=== PATIENT | female | born 1940 | race Caucasian/White ===

== ENCOUNTER 2019-11-05 14:22 | Emergency (ER) | payer MEDICARE, SELFPAY ==
[2019-11-05 14:34] VITALS: BP 143/67; PULSE 76; RESP 18; TEMP 36.4; O2SAT 100
--- NOTE | 2019-11-05 14:35 | ED.NAVMDI ---
HPI - Nausea/Vomiting/Diarrhea General Chief complaint: Nausea/Vomiting/Diarrhea Stated complaint: diarrhea/bleeding Time Seen by Provider: 11/05/19 14:35 Source: patient Mode of arrival: ambulatory Limitations: no limitations History of Present Illness HPI Narrative: The pt is an 79 y/o female who presents to the ED with c/o diarrhea that began this morning. The pt has been to the ED with similar sx before and has an appointment to see a floor space allocator this upcoming week. She has had about 8-10 episodes of diarrhea today. She reports rectal bleeding and diffuse ABD pain, but denies nausea, vomiting, fever, chills, or CP. MD elicited complaint: diarrhea Onset (ago): hour(s) (this morning) Associated abdominal pain: Yes Location of pain: diffuse Associated symptoms: other (diffuse ABD pain, rectal bleeding) Related Data Home Medications Medication Instructions Recorded Confirmed B Complex Plus Vitamin C 150 mg PO DAILY 09/01/19 09/06/19 Eliquis 2.5 mg PO BID 09/01/19 09/06/19 Entresto 1 tablet PO Q12H 09/01/19 09/06/19 albuterol sulfate 2 puff INHALATION Q4-6H PRN 09/01/19 09/06/19 alprazolam 0.5 mg PO TID PRN 09/01/19 09/06/19 ascorbic acid (vitamin C) [Vitamin 500 mg PO DAILY 09/01/19 09/06/19 C With Debora Hips] aspirin [Children's Aspirin] 81 mg PO DAILY 09/01/19 09/06/19 atorvastatin 40 mg PO DAILY 09/01/19 09/06/19 cholecalciferol (vitamin D3) 5,000 unit PO DAILY 09/01/19 09/06/19 clopidogrel 75 mg PO DAILY 09/01/19 09/06/19 furosemide 40 mg PO DAILY 09/01/19 09/06/19 hydralazine 10 mg PO TID 09/01/19 09/06/19 levothyroxine 125 mcg PO DAILY 09/01/19 09/06/19 metoprolol succinate 50 mg PO DAILY 09/01/19 09/06/19 nitroglycerin 0.4 mg SUBLINGUAL Q5M PRN 09/01/19 09/06/19 pantoprazole 40 mg PO BID 09/01/19 09/06/19 ranitidine HCl 150 mg PO BID 09/01/19 09/06/19 trazodone 100 mg PO HS 09/01/19 09/06/19 valacyclovir 1,000 mg PO DAILY 09/01/19 09/06/19 Systane Ultra 1 drp RIGHTEYE BID 09/06/19 09/06/19 ferrous sulfate 325 mg PO DAILY 09/06/19 09/06/19 melatonin 5 mg PO HS PRN 09/06/19 09/06/19 prednisolone acetate 1 % LEFTEYE DAILY 09/06/19 09/06/19 topiramate [Topamax] 100 mg PO HS 09/06/19 09/06/19 Allergies Allergy/AdvReac Type Severity Reaction Status Date / Time Penicillins Allergy Unknown Rash Verified 11/02/19 10:10 Review of Systems Review of Systems: All systems reviewed & are unremarkable except as noted in HPI and below Constitutional: Constitutional: Denies chills and Denies fever(s) Cardiovascular: Cardiovascular: Denies chest pain Gastrointestinal: Gastrointestinal: Reports abdominal pain (diffuse), Reports diarrhea, Denies nausea, Denies vomiting and Reports other (rectal bleeding) [facility] Past Medical History Medical History (Updated 11/05/19 @ 17:58 by Linda Aviles MD) Anemia Angina at rest Chronic anemia Chronic kidney disease, stage 3 Colitis Congestive heart failure Systolic and diastolic congestive heart failure with last echocardiogram in October 2018. COPD (chronic obstructive pulmonary disease) Coronary artery disease With multivessel surgical revascularization with PCI at [place] October 2017. Depression with anxiety Detached retina Right-sided, x2. Fibroids Frequent headaches GERD (gastroesophageal reflux disease) With history of esophageal stricture requiring dilatation. History of GI bleed History of rectal polyps HTN (hypertension) Hyperlipidemia Hypothyroidism IBS (irritable bowel syndrome) Mitral valve prolapse Myasthenia gravis Questionable history of. Myocardial infarct Obstructive sleep apnea Ocular herpes zoster History of shingles to the left eye, on chronic antiviral therapy. Paroxysmal atrial fibrillation Peripheral neuropathy Pneumonia Rectal polyp Restless leg syndrome Shingles Solitary rectal ulcer syndrome Ulcer Surgical History Surgical History (Updated 11/05/19 @ 15:04 by Rosalia Brasher) H/O mastectomy Status post appendectomy Status pos
[2019-11-05 16:23] LABS: Basophils Percent Auto 0.2 % (0.2-1.2); Eosinophils Absolute Auto 0.1 K/mm3 (0-0.3); Eosinophils Percent Auto 1.2 % (0-4.4); Hematocrit 27.8 % (37.0-47.0); Hemoglobin 8.9 g/dL (12.0-15.0); Immature Granulocyte Absolute 0.01 K/mm3 (0.00-0.031); Immature Granulocyte Percent A 0.2 % (0-0.5); Lymphocytes Absolute Auto 0.82 K/mm3 (0.9-3.2); Lymphocytes Percent Auto 19.6 % (18.3-44.2); Mean Platelet Volume 9.5 fl (7.4-10.4); Monocytes Absolute Auto 0.4 K/mm3 (0.1-0.6); Monocytes Percent Auto 9.3 % (2.6-8.5); Neutrophils Absolute Auto 2.9 K/mm3 (1.3-6.7); Neutrophils Percent Auto 69.5 % (45.5-73.1); Platelet Count Result 200 k/mm3 (150-375); Red Cell Distribution Width 12.6 % (11.5-14.5); White Blood Count 4.2 K/mm3 (4.5-10.0)
[2019-11-05 16:25] VITALS: BP 142/78; PULSE 64; RESP 12; O2SAT 97
[2019-11-05] MEDS: SODIUM CHLORIDE 0.9% IV 1,000 ML 999 ML IV CONT (16:26)
[2019-11-05] MEDS: KETOROLAC 30 MG/ML VIAL (*BKC) IV PUSH (16:26)
[2019-11-05] MEDS: METOCLOPRAMIDE HCL INJ 10 MG/2 ML VIAL IV PUSH (16:28)
[2019-11-05 16:39] LABS: Alanine Aminotransferase 14 U/L (4-35); Albumin Level 3.6 g/dL (3.5-5.1); Alkaline Phosphatase 62 U/L (38-126); Aspartate Amino Transferase 27 U/L (14-36); Bilirubin,Total 0.2 mg/dL (0.2-1.3); Blood Urea Nitrogen 17 mg/dL (7-17); Calcium 8.4 mg/dL (8.4-10.2); Carbon Dioxide 29 mmol/L (22-30); Chloride 101 mmol/L (98-107); Estimated CRCL calculation 17 ml/min; Estimated Glomerular Filt Rate 29; Glucose 115 mg/dL (65-105); Potassium 3.9 mmol/L (3.4-5.0); Sodium 138 mmol/L (137-145)
[2019-11-05] MEDS: LORAZEPAM INJ 2 MG/ML VIAL 1 MG IV PUSH (18:00)
[2019-11-05 18:03] VITALS: BP 167/85; PULSE 72; RESP 18; O2SAT 98
[2019-11-05 18:14] VITALS: BP 161/78; PULSE 71; RESP 16; TEMP 36.9; O2SAT 97
== END 2019-11-05 18:37 | disposition home or self-care (01) ==
PROVIDERS: Emergency Provider Emergency Medicine; PCP Family Medicine
DX: R10.13 Epigastric pain (principal); R19.7 Diarrhea, unspecified; I13.0 Hypertensive heart and chronic kidney disease with heart failure and stage 1 through stage 4 chronic kidney disease, or unspecified chronic kidney disease; I50.40 Unspecified combined systolic (congestive) and diastolic (congestive) heart failure; I25.10 Atherosclerotic heart disease of native coronary artery without angina pectoris; K21.9 Gastro-esophageal reflux disease without esophagitis; E78.5 Hyperlipidemia, unspecified; E03.9 Hypothyroidism, unspecified; K58.9 Irritable bowel syndrome, unspecified; I34.1 Nonrheumatic mitral (valve) prolapse; I48.0 Paroxysmal atrial fibrillation; Z79.01 Long term (current) use of anticoagulants; G62.9 Polyneuropathy, unspecified; G25.81 Restless legs syndrome; Z96.643 Presence of artificial hip joint, bilateral; Z96.653 Presence of artificial knee joint, bilateral; D64.9 Anemia, unspecified; Z79.82 Long term (current) use of aspirin; F41.8 Other specified anxiety disorders; I25.2 Old myocardial infarction; Z98.42 Cataract extraction status, left eye; Z98.41 Cataract extraction status, right eye
CPT/HCPCS: 36415; 80053; 85025; 96361; 96374; 96375; 99284; J1200; J1885; J2060; J2765; J7030

== ENCOUNTER 2019-11-07 15:23 | Emergency (ER) | payer MEDICARE, SELFPAY ==
--- NOTE | ~2019-11-07 | XR_ITS ---
EXAMINATION: XR chest 2V DATE: 11/07/2019 16:46 INDICATION: Burning pain from stomach to mid chest. TECHNIQUE: Frontal and lateral views of the chest were obtained. COMPARISON: Chest 2 views 11/03/2019, chest CT 10/14/2018 FINDINGS: There is mild elevation of left hemidiaphragm. The chest demonstrates clear lungs without p neumonia, pleural effusion, or pneumothorax. The heart size is normal. Calcified mediastinal lymph no sharda are consistent with old granulomatous disease. IMPRESSION: 1. No acute cardiopulmonary disease. Reviewed, dictated and finalized at location A. [place] STORE ASSOCIATE
--- NOTE | 2019-11-07 15:33 | ECG_ITS ---
Measurements Intervals [place] Rate: 78 P: 83 VT: 153 QRS: -25 QRSD: 92 T: 48 QT: 362 QTc: 415 Interpretive Statements SINUS RHYTHM VENTRICULAR PREMATURE COMPLEX POSSIBLE LEFT ATRIAL ENLARGEMENT POSSIBLE LEFT VENTRICULAR HYPERTROPHY BASELINE ARTIFACT- I, III, AVL, V3-V4 BORDERLINE ECG Electronically Signed On 11-07-2019 17:15:23 TANK WAGON DRIVER by Marlon Joe D.O.
[2019-11-07 15:34] VITALS: BP 154/86; PULSE 78; RESP 16; TEMP 36.6; O2SAT 99
[2019-11-07 15:44] LABS: Basophils Percent Auto 0.5 % (0.2-1.2); Eosinophils Percent Auto 0.7 % (0-4.4); Hematocrit 28.8 % (37.0-47.0); Hemoglobin 9.3 g/dL (12.0-15.0); Immature Granulocyte Absolute 0.02 K/mm3 (0.00-0.031); Immature Granulocyte Percent A 0.5 % (0-0.5); Lymphocytes Absolute Auto 0.76 K/mm3 (0.9-3.2); Lymphocytes Percent Auto 17.7 % (18.3-44.2); Mean Corpuscular HGB Conc 32.3 g/dl (32-36); Mean Corpuscular Hemoglobin 33.1 pg (26-34); Mean Corpuscular Volume 102.5 fl (80-100); Mean Platelet Volume 9.7 fl (7.4-10.4); Monocytes Absolute Auto 0.4 K/mm3 (0.1-0.6); Monocytes Percent Auto 9.1 % (2.6-8.5); Neutrophils Absolute Auto 3.1 K/mm3 (1.3-6.7); Neutrophils Percent Auto 71.5 % (45.5-73.1); Platelet Count Result 234 k/mm3 (150-375); Red Blood Count 2.81 M/mm3 (4.2-5.4); Red Cell Distribution Width 12.5 % (11.5-14.5); White Blood Count 4.3 K/mm3 (4.5-10.0)
[2019-11-07 15:54] LABS: INR 1.1; Prothrombin Time 14.1 Seconds (11.1-14.7)
[2019-11-07 15:55] LABS: Partial Thromboplastin Time 28.2 SECONDS (22.3-36.8)
[2019-11-07 15:56] LABS: Blood Urea Nitrogen 13 mg/dL (7-17); Calcium 8.7 mg/dL (8.4-10.2); Carbon Dioxide 29 mmol/L (22-30); Chloride 96 mmol/L (98-107); Estimated CRCL calculation 20 ml/min; Estimated Glomerular Filt Rate 33; Glucose 130 mg/dL (65-105); Potassium 3.4 mmol/L (3.4-5.0); Sodium 135 mmol/L (137-145)
[2019-11-07 16:07] LABS: Troponin I < 0.012 ng/mL (0.000-0.034)
[2019-11-07 16:36] VITALS: PULSE 70
[2019-11-07 16:38] VITALS: BP 150/92; PULSE 71; RESP 14; O2SAT 96
--- NOTE | 2019-11-07 16:54 | ED.ABDPAIN ---
HPI - Abdominal Pain General Chief Complaint: Chest Pain Stated Complaint: DIARRHEA, ABD PAIN Time Seen by Provider: 11/07/19 16:39 Source: patient and RN notes reviewed Mode of arrival: ambulatory Limitations: no limitations History of Present Illness HPI narrative: Pt is a 79 y/o female with a Hx of IBS, who presents to the ED with c/o chronic epigastric pain and diarrhea. According to old records, the pt was evaluated here for the same symptoms 4 days ago and again 2 days ago. She describes her pain as burning, and notes that her pain radiates into her chest and back. Pt states that she has been taking Imodium for her diarrhea, but denies having any relief of her symptoms. She currently denies any fever, chills, or other symptoms. Pt states that she is scheduled for a follow-up appointment with her nurse outreach case manager, Dr. Coates. MD elicited complaint: abdominal pain Pertinent past history: other (IBS) Location: epigastric Radiation: back and chest Associated symptoms: diarrhea Treatments prior to arrival: other (Imodium) Related Data Home Medications Medication Instructions Recorded Confirmed B Complex Plus Vitamin C 150 mg PO DAILY 09/01/19 09/06/19 Eliquis 2.5 mg PO BID 09/01/19 09/06/19 Entresto 1 tablet PO Q12H 09/01/19 09/06/19 albuterol sulfate 2 puff INHALATION Q4-6H PRN 09/01/19 09/06/19 alprazolam 0.5 mg PO TID PRN 09/01/19 09/06/19 ascorbic acid (vitamin C) [Vitamin 500 mg PO DAILY 09/01/19 09/06/19 C With Debora Hips] aspirin [Children's Aspirin] 81 mg PO DAILY 09/01/19 09/06/19 atorvastatin 40 mg PO DAILY 09/01/19 09/06/19 cholecalciferol (vitamin D3) 5,000 unit PO DAILY 09/01/19 09/06/19 clopidogrel 75 mg PO DAILY 09/01/19 09/06/19 furosemide 40 mg PO DAILY 09/01/19 09/06/19 hydralazine 10 mg PO TID 09/01/19 09/06/19 levothyroxine 125 mcg PO DAILY 09/01/19 09/06/19 metoprolol succinate 50 mg PO DAILY 09/01/19 09/06/19 nitroglycerin 0.4 mg SUBLINGUAL Q5M PRN 09/01/19 09/06/19 pantoprazole 40 mg PO BID 09/01/19 09/06/19 ranitidine HCl 150 mg PO BID 09/01/19 09/06/19 trazodone 100 mg PO HS 09/01/19 09/06/19 valacyclovir 1,000 mg PO DAILY 09/01/19 09/06/19 Systane Ultra 1 drp RIGHTEYE BID 09/06/19 09/06/19 ferrous sulfate 325 mg PO DAILY 09/06/19 09/06/19 melatonin 5 mg PO HS PRN 09/06/19 09/06/19 prednisolone acetate 1 % LEFTEYE DAILY 09/06/19 09/06/19 topiramate [Topamax] 100 mg PO HS 09/06/19 09/06/19 Allergies Allergy/AdvReac Type Severity Reaction Status Date / Time Penicillins Allergy Unknown Rash Verified 11/02/19 10:10 Review of Systems Review of Systems: All systems reviewed & are unremarkable except as noted in HPI and below Constitutional: Constitutional: Denies chills and Denies fever(s) Gastrointestinal: Gastrointestinal: Reports abdominal pain (epigastric pain radiating into chest and back) and Reports diarrhea PMFSH Past Medical History Medical History (Updated 11/07/19 @ 17:45 by Sharron Gunderson MD) Anemia Angina at rest Chronic anemia Chronic kidney disease, stage 3 Colitis Congestive heart failure Systolic and diastolic congestive heart failure with last echocardiogram in October 2018. COPD (chronic obstructive pulmonary disease) Coronary artery disease With multivessel surgical revascularization with PCI at [place] October 2017. Depression with anxiety Detached retina Right-sided, x2. Fibroids Frequent headaches GERD (gastroesophageal reflux disease) With history of esophageal stricture requiring dilatation. History of GI bleed History of rectal polyps HTN (hypertension) Hyperlipidemia Hypothyroidism IBS (irritable bowel syndrome) Mitral valve prolapse Myasthenia gravis Questionable history of. Myocardial infarct Obstructive sleep apnea Ocular herpes zoster History of shingles to the left eye, on chronic antiviral therapy. Paroxysmal atrial fibrillation Peripheral neuropathy Pneumonia Rectal polyp Restless leg syndrome Shingles Solitary rectal ulcer syndrom
[2019-11-07] MEDS: BELLADONNA ALK/PHENOB ELIX 10 ML, MAG HYDROX/ALUMINUM HYD/SIMETH 30 ML, LIDOCAINE HCL 2... PO (17:10)
[2019-11-07 17:57] VITALS: BP 138/88; PULSE 67; RESP 15; O2SAT 98
== END 2019-11-07 17:58 | disposition home or self-care (01) ==
PROVIDERS: Emergency Medicine; Emergency Provider General Practice; PCP Family Medicine
DX: R07.89 Other chest pain (principal); R10.13 Epigastric pain; G89.29 Other chronic pain; I13.0 Hypertensive heart and chronic kidney disease with heart failure and stage 1 through stage 4 chronic kidney disease, or unspecified chronic kidney disease; I50.40 Unspecified combined systolic (congestive) and diastolic (congestive) heart failure; I25.10 Atherosclerotic heart disease of native coronary artery without angina pectoris; K21.9 Gastro-esophageal reflux disease without esophagitis; E78.5 Hyperlipidemia, unspecified; E03.9 Hypothyroidism, unspecified; K58.9 Irritable bowel syndrome, unspecified; I34.1 Nonrheumatic mitral (valve) prolapse; I48.0 Paroxysmal atrial fibrillation; Z79.01 Long term (current) use of anticoagulants; G62.9 Polyneuropathy, unspecified; G25.81 Restless legs syndrome; Z96.643 Presence of artificial hip joint, bilateral; Z96.653 Presence of artificial knee joint, bilateral; D64.9 Anemia, unspecified; Z79.82 Long term (current) use of aspirin; F41.8 Other specified anxiety disorders; I25.2 Old myocardial infarction; Z98.42 Cataract extraction status, left eye; Z98.41 Cataract extraction status, right eye
CPT/HCPCS: 36415; 71046; 80048; 84484; 85025; 85610; 85730; 93005; 99284; A9270

== ENCOUNTER 2019-11-15 18:46 | Emergency (ER) | payer MEDICARE, SELFPAY ==
--- NOTE | ~2019-11-15 | XR_ITS ---
EXAMINATION: XR chest 2V DATE: 11/15/2019 19:27 INDICATION: Chest pain extending inferiorly to the stomach. TECHNIQUE: frontal and lateral views of the chest were obtained. COMPARISON: Chest radiograph dated 11/07/2019 FINDINGS: Upper expansion of lungs. Chronic mild elevation of the left hemidiaphragm. No focal airspace opaciti es, pulmonary edema, pleural effusion or pneumothorax. Cardiomegaly with prior coronary artery stenti ng. Calcified right hilar and mediastinal lymph nodes consistent with old granulomatous disease. Larg e loose osteochondral body at the axillary recess of the right glenohumeral joint. Mild thoracic dext roscoliosis with severe spondylosis. IMPRESSION: 1. Cardiomegaly. Reviewed, dictated and finalized at location A. TING FILM STRIPPER IMPRESSION: 1. Cardiomegaly.
--- NOTE | 2019-11-15 18:47 | ECG_ITS ---
Measurements Intervals [place] Rate: 65 P: 83 NC: 136 QRS: -34 QRSD: 94 T: 0 QT: 459 QTc: 481 Interpretive Statements SINUS RHYTHM ATRIAL PREMATURE COMPLEX LEFT AXIS DEVIATION ANTEROSEPTAL INFARCT, AGE INDETERMINATE BORDERLINE ST-T WAVE ABNORMALITY- LATERAL LEADS BASELINE ARTIFACT- I, II, III, AVR, AVL, AVF, V1-V6 ABNORMAL ECG Electronically Signed On 11-16-2019 8:00:17 SMALL CRAFT OPERATOR by Marlon Joe D.O.
[2019-11-15 18:53] VITALS: BP 169/93; PULSE 67; RESP 17; TEMP 36.7; O2SAT 98
[2019-11-15 18:56] VITALS: PULSE 67
--- NOTE | 2019-11-15 19:09 | ED.CHESTPAIN ---
HPI - Chest Pain General Chief Complaint: Chest Pain Stated Complaint: chest pain all the way down to my stomach Time Seen by Provider: 11/15/19 19:07 Source: patient and RN notes reviewed Mode of arrival: ambulatory Limitations: no limitations History of Present Illness HPI narrative: A 79 y/o female presents to the ED with worsening, central, pressure, CP beginning earlier this morning. She reports that the pain radiates into her ABD and that she has ABD bloating. She also notes that she has a rectal ulcer that causes her chronic occasional rectal bleeding. She denies any fevers, chills, sweats, cough, N/V/D, or SOB. MD complaint: chest pain Pertinent past history: coronary artery disease and prior [place] Onset (ago): hour(s) (this morning) Timing of current episode: increasing Pain location: other (central) Pain radiation: abdomen Quality: other (pressure) Associated symptoms: other (ABD bloating and chronic occasional rectal bleeding) Related Data Home Medications Medication Instructions Recorded Confirmed B Complex Plus Vitamin C 150 mg PO DAILY 09/01/19 09/06/19 Eliquis 2.5 mg PO BID 09/01/19 09/06/19 Entresto 1 tablet PO Q12H 09/01/19 09/06/19 albuterol sulfate 2 puff INHALATION Q4-6H PRN 09/01/19 09/06/19 alprazolam 0.5 mg PO TID PRN 09/01/19 09/06/19 ascorbic acid (vitamin C) [Vitamin 500 mg PO DAILY 09/01/19 09/06/19 C With Debora Hips] aspirin [Children's Aspirin] 81 mg PO DAILY 09/01/19 09/06/19 atorvastatin 40 mg PO DAILY 09/01/19 09/06/19 cholecalciferol (vitamin D3) 5,000 unit PO DAILY 09/01/19 09/06/19 clopidogrel 75 mg PO DAILY 09/01/19 09/06/19 furosemide 40 mg PO DAILY 09/01/19 09/06/19 hydralazine 10 mg PO TID 09/01/19 09/06/19 levothyroxine 125 mcg PO DAILY 09/01/19 09/06/19 metoprolol succinate 50 mg PO DAILY 09/01/19 09/06/19 nitroglycerin 0.4 mg SUBLINGUAL Q5M PRN 09/01/19 09/06/19 pantoprazole 40 mg PO BID 09/01/19 09/06/19 ranitidine HCl 150 mg PO BID 09/01/19 09/06/19 trazodone 100 mg PO HS 09/01/19 09/06/19 valacyclovir 1,000 mg PO DAILY 09/01/19 09/06/19 Systane Ultra 1 drp RIGHTEYE BID 09/06/19 09/06/19 ferrous sulfate 325 mg PO DAILY 09/06/19 09/06/19 melatonin 5 mg PO HS PRN 09/06/19 09/06/19 prednisolone acetate 1 % LEFTEYE DAILY 09/06/19 09/06/19 topiramate [Topamax] 100 mg PO HS 09/06/19 09/06/19 Allergies Allergy/AdvReac Type Severity Reaction Status Date / Time Penicillins Allergy Unknown Rash Verified 11/15/19 19:18 Review of Systems Review of Systems: Narrative: CONSTITUTIONAL: Denies fever, chills, or sweats. CARDIOVASCULAR: Reports central CP. RESPIRATORY: Denies cough or dyspnea. GASTROINTESTINAL: Denies nausea, vomiting, or diarrhea. Reports ABD pain radiated from CP, ABD bloating, and chronic occasional rectal bleeding. All systems reviewed & are unremarkable except as noted in HPI and below PMFSH Past Medical History Medical History Anemia Angina at rest Chronic anemia Chronic kidney disease, stage 3 Colitis Congestive heart failure Systolic and diastolic congestive heart failure with last echocardiogram in October 2018. COPD (chronic obstructive pulmonary disease) Coronary artery disease With multivessel surgical revascularization with PCI at [place] October 2017. Depression with anxiety Detached retina Right-sided, x2. Fibroids Frequent headaches GERD (gastroesophageal reflux disease) With history of esophageal stricture requiring dilatation. History of GI bleed History of rectal polyps HTN (hypertension) Hyperlipidemia Hypothyroidism IBS (irritable bowel syndrome) Mitral valve prolapse Myasthenia gravis Questionable history of. Myocardial infarct Obstructive sleep apnea Ocular herpes zoster History of shingles to the left eye, on chronic antiviral therapy. Paroxysmal atrial fibrillation Peripheral neuropathy Pneumonia Rectal polyp Restless leg syndrome Shingles Solitary rectal ulcer syndrome Ulcer Surgical Histo
[2019-11-15 19:43] LABS: Basophils Percent Auto 0.5 % (0.2-1.2); Eosinophils Absolute Auto 0.1 K/mm3 (0-0.3); Eosinophils Percent Auto 1.5 % (0-4.4); Hematocrit 28.6 % (37.0-47.0); Hemoglobin 9.1 g/dL (12.0-15.0); Immature Granulocyte Absolute 0.02 K/mm3 (0.00-0.031); Immature Granulocyte Percent A 0.5 % (0-0.5); Lymphocytes Absolute Auto 1.05 K/mm3 (0.9-3.2); Lymphocytes Percent Auto 26.9 % (18.3-44.2); Mean Corpuscular HGB Conc 31.8 g/dl (32-36); Mean Corpuscular Volume 103.6 fl (80-100); Mean Platelet Volume 9.8 fl (7.4-10.4); Monocytes Absolute Auto 0.3 K/mm3 (0.1-0.6); Monocytes Percent Auto 8.7 % (2.6-8.5); Neutrophils Absolute Auto 2.4 K/mm3 (1.3-6.7); Neutrophils Percent Auto 61.9 % (45.5-73.1); Platelet Count Result 222 k/mm3 (150-375); Red Blood Count 2.76 M/mm3 (4.2-5.4); Red Cell Distribution Width 12.4 % (11.5-14.5); White Blood Count 3.9 K/mm3 (4.5-10.0)
[2019-11-15 19:54] LABS: Alanine Aminotransferase 16 U/L (4-35); Albumin Level 3.8 g/dL (3.5-5.1); Alkaline Phosphatase 64 U/L (38-126); Aspartate Amino Transferase 34 U/L (14-36); Bilirubin,Total 0.3 mg/dL (0.2-1.3); Blood Urea Nitrogen 17 mg/dL (7-17); Calcium 8.7 mg/dL (8.4-10.2); Carbon Dioxide 33 mmol/L (22-30); Chloride 100 mmol/L (98-107); Estimated Glomerular Filt Rate 39; Glucose 87 mg/dL (65-105); Lipase 362 U/L (23-300); Potassium 3.5 mmol/L (3.4-5.0); Sodium 139 mmol/L (137-145)
[2019-11-15 19:55] LABS: INR 1.2; Partial Thromboplastin Time 28.3 SECONDS (22.3-36.8); Prothrombin Time 14.5 Seconds (11.1-14.7)
[2019-11-15 20:06] LABS: Troponin I < 0.012 ng/mL (0.000-0.034)
[2019-11-15] MEDS: SODIUM CHLORIDE 0.9% IV 1,000 ML 999 ML IV CONT (21:06)
[2019-11-15] MEDS: FAMOTIDINE 20 MG/2 ML VIAL IV PUSH (21:07)
[2019-11-15] MEDS: DICYCLOMINE HCL INJ 20 MG/2 ML VIAL IM (21:07)
[2019-11-15 21:13] VITALS: BP 164/87; PULSE 68; RESP 20; O2SAT 96
[2019-11-15 21:42] VITALS: BP 164/87; PULSE 69; RESP 20; O2SAT 99
[2019-11-15 21:56] LABS: Troponin I < 0.012 ng/mL (0.000-0.034)
== END 2019-11-15 21:44 | disposition home or self-care (01) ==
PROVIDERS: Emergency Medicine; Emergency Provider Emergency Medicine; PCP Family Medicine
DX: R07.89 Other chest pain (principal); K29.00 Acute gastritis without bleeding; I13.0 Hypertensive heart and chronic kidney disease with heart failure and stage 1 through stage 4 chronic kidney disease, or unspecified chronic kidney disease; I50.40 Unspecified combined systolic (congestive) and diastolic (congestive) heart failure; N18.3 Chronic kidney disease, stage 3 (moderate); I25.10 Atherosclerotic heart disease of native coronary artery without angina pectoris; E78.5 Hyperlipidemia, unspecified; E03.9 Hypothyroidism, unspecified; K58.9 Irritable bowel syndrome, unspecified; I34.1 Nonrheumatic mitral (valve) prolapse; I48.0 Paroxysmal atrial fibrillation; Z79.01 Long term (current) use of anticoagulants; G62.9 Polyneuropathy, unspecified; G25.81 Restless legs syndrome; Z96.643 Presence of artificial hip joint, bilateral; Z96.653 Presence of artificial knee joint, bilateral; D64.9 Anemia, unspecified; Z79.82 Long term (current) use of aspirin; F41.8 Other specified anxiety disorders; I25.2 Old myocardial infarction; Z98.42 Cataract extraction status, left eye; Z98.41 Cataract extraction status, right eye; J44.9 Chronic obstructive pulmonary disease, unspecified; I49.1 Atrial premature depolarization; R94.31 Abnormal electrocardiogram [ECG] [EKG]
CPT/HCPCS: 36415; 71046; 80053; 83690; 84484; 85025; 85610; 85730; 93005; 96361; 96372; 96374; 96375; 99284; J0500; J1200; J7030

== ENCOUNTER 2019-11-26 20:54 | Emergency (ER) | payer MEDICARE, SELFPAY ==
--- NOTE | ~2019-11-26 | CT_ITS ---
EXAMINATION: CT abdomen pelvis wo con DATE: 11/27/2019 00:01 INDICATION: Epigastric abdominal pain. TECHNIQUE: Computed tomography (CT) of the abdomen and pelvis was performed without intravenous contr ast. Automated exposure control and iterative reconstruction technique were employed. The dose-length product was 238.34 mGy-cm. COMPARISON: CT abdomen and pelvis 10/04/2019 FINDINGS: The visualized portions of the lung bases demonstrate mild atelectasis. A calcified right l misbah nodule is consistent with old granulomatous disease. No pleural effusion. The heart size is toro l. There are coronary artery calcifications. No pericardial effusion. There is mild intrahepatic bili morales duct dilatation and dilatation of the common duct to 16 mm without change, likely not clinically significant given the normal liver function tests. There are changes of cholecystectomy. Calcificatio ns in the spleen are consistent with old granulomatous disease. The pancreas and adrenal glands are n ormal. There are cysts and hemorrhagic cysts in the kidneys measuring up to 1.7 cm on the left. There is mild atrophy of left kidney. There are no dilated loops of bowel. The appendix is not visualized. There are no pathologically enlarged lymph nodes. There is no free intraperitoneal fluid. There are bilateral total hip arthroplasties. There is a 1.5 cm benign bone island in left ilium. There is lumb ar levoscoliosis and severe spondylosis. IMPRESSION: 1. No specific etiology for the patient's symptoms. Reviewed, dictated and finalized at location A. RINTENDENT CONSTRUCTION
[2019-11-26 21:50] VITALS: BP 169/86; PULSE 61; RESP 18; TEMP 36.5; O2SAT 100
--- NOTE | 2019-11-26 23:35 | ED.ABDPAIN ---
HPI - Abdominal Pain General Chief Complaint: Abdominal Pain Stated Complaint: ABD, PELVIS AND CHEST DISCOMFORT Time Seen by Provider: 11/26/19 23:12 Source: patient and RN notes reviewed Mode of arrival: ambulatory Limitations: no limitations History of Present Illness HPI narrative: Pt is a 79 y/o female with a Hx of GERD, who presents to the ED with c/o worsening diffuse ABD pain starting this morning. She notes that she has been evaluated in the [place] ED several times within the past few months for the same symptoms. Pt has had multiple ER visits for the same complaints, abd pain/atypical chest pain. Pt states that her pain radiates from her diffuse ABD into her central chest. She describes her pain as burning, started after eating tonight, and currently rates her pain at 10/10. Pt reports having 3-4 episodes of diarrhea throughout the day today. She also reports SOB, but denies any nausea, vomiting, fever, or rectal bleeding. Pt notes that she is currently being treated with antibiotics for a UTI. MD elicited complaint: abdominal pain Pertinent past history: diverticulitis and other (GERD) Onset (ago): day(s) (1) Pain Consistency: other (worsening) Location: diffuse Pain scale (0-10): 10 Quality: burning Radiation: back and chest Context: confirms recent antibiotic use Associated symptoms: diarrhea and other (SOB) Related Data Home Medications Medication Instructions Recorded Confirmed B Complex Plus Vitamin C 150 mg PO DAILY 09/01/19 09/06/19 Eliquis 2.5 mg PO BID 09/01/19 09/06/19 Entresto 1 tablet PO Q12H 09/01/19 09/06/19 albuterol sulfate 2 puff INHALATION Q4-6H PRN 09/01/19 09/06/19 alprazolam 0.5 mg PO TID PRN 09/01/19 09/06/19 ascorbic acid (vitamin C) [Vitamin 500 mg PO DAILY 09/01/19 09/06/19 C With Debora Hips] aspirin [Children's Aspirin] 81 mg PO DAILY 09/01/19 09/06/19 atorvastatin 40 mg PO DAILY 09/01/19 09/06/19 cholecalciferol (vitamin D3) 5,000 unit PO DAILY 09/01/19 09/06/19 clopidogrel 75 mg PO DAILY 09/01/19 09/06/19 furosemide 40 mg PO DAILY 09/01/19 09/06/19 hydralazine 10 mg PO TID 09/01/19 09/06/19 levothyroxine 125 mcg PO DAILY 09/01/19 09/06/19 metoprolol succinate 50 mg PO DAILY 09/01/19 09/06/19 nitroglycerin 0.4 mg SUBLINGUAL Q5M PRN 09/01/19 09/06/19 pantoprazole 40 mg PO BID 09/01/19 09/06/19 ranitidine HCl 150 mg PO BID 09/01/19 09/06/19 trazodone 100 mg PO HS 09/01/19 09/06/19 valacyclovir 1,000 mg PO DAILY 09/01/19 09/06/19 Systane Ultra 1 drp RIGHTEYE BID 09/06/19 09/06/19 ferrous sulfate 325 mg PO DAILY 09/06/19 09/06/19 melatonin 5 mg PO HS PRN 09/06/19 09/06/19 prednisolone acetate 1 % LEFTEYE DAILY 09/06/19 09/06/19 topiramate [Topamax] 100 mg PO HS 09/06/19 09/06/19 Allergies Allergy/AdvReac Type Severity Reaction Status Date / Time Penicillins Allergy Unknown Rash Verified 11/15/19 19:18 Review of Systems Review of Systems: All systems reviewed & are unremarkable except as noted in HPI and below Constitutional: Constitutional: Denies fever(s) Respiratory: Respiratory: Reports dyspnea Gastrointestinal: Gastrointestinal: Reports abdominal pain (diffuse ABD pain radiating into chest and back), Denies hematochezia, Reports diarrhea, Denies nausea and Denies vomiting PMF Past Medical History Medical History Anemia Angina at rest Chronic anemia Chronic kidney disease, stage 3 Colitis Congestive heart failure Systolic and diastolic congestive heart failure with last echocardiogram in October 2018. COPD (chronic obstructive pulmonary disease) Coronary artery disease With multivessel surgical revascularization with PCI at [place] October 2017. Depression with anxiety Detached retina Right-sided, x2. Fibroids Frequent headaches GERD (gastroesophageal reflux disease) With history of esophageal stricture requiring dilatation. History of GI bleed History of rectal polyps HTN (hypertension) Hyperlipidemia Hypothyroidism IBS
[2019-11-26 23:59] LABS: Basophils Percent Auto 0.9 % (0.2-1.2); Eosinophils Absolute Auto 0.1 K/mm3 (0-0.3); Eosinophils Percent Auto 2.3 % (0-4.4); Hematocrit 32.2 % (37.0-47.0); Hemoglobin 10.1 g/dL (12.0-15.0); Immature Granulocyte Absolute 0.02 K/mm3 (0.00-0.031); Immature Granulocyte Percent A 0.5 % (0-0.5); Lymphocytes Absolute Auto 0.95 K/mm3 (0.9-3.2); Lymphocytes Percent Auto 21.9 % (18.3-44.2); Mean Corpuscular HGB Conc 31.4 g/dl (32-36); Mean Corpuscular Hemoglobin 32.4 pg (26-34); Mean Corpuscular Volume 103.2 fl (80-100); Mean Platelet Volume 9.8 fl (7.4-10.4); Monocytes Absolute Auto 0.4 K/mm3 (0.1-0.6); Monocytes Percent Auto 8.1 % (2.6-8.5); Neutrophils Absolute Auto 2.9 K/mm3 (1.3-6.7); Neutrophils Percent Auto 66.3 % (45.5-73.1); Platelet Count Result 230 k/mm3 (150-375); Red Blood Count 3.12 M/mm3 (4.2-5.4); Red Cell Distribution Width 12.2 % (11.5-14.5); White Blood Count 4.3 K/mm3 (4.5-10.0)
[2019-11-27 00:12] LABS: Lactic Acid Reflex 0.5 mmol/L (0.7-2.1)
[2019-11-27 00:23] LABS: Troponin I < 0.012 ng/mL (0.000-0.034)
[2019-11-27 00:32] LABS: Alanine Aminotransferase 17 U/L (4-35); Albumin Level 4.4 g/dL (3.5-5.1); Alkaline Phosphatase 75 U/L (38-126); Aspartate Amino Transferase 33 U/L (14-36); Bilirubin,Total 0.5 mg/dL (0.2-1.3); Blood Urea Nitrogen 14 mg/dL (7-17); Calcium 9.1 mg/dL (8.4-10.2); Carbon Dioxide 26 mmol/L (22-30); Chloride 102 mmol/L (98-107); Estimated CRCL calculation 20 ml/min; Estimated Glomerular Filt Rate 36; Glucose 92 mg/dL (65-105); Sodium 137 mmol/L (137-145)
[2019-11-27 00:35] LABS: INR 1.1; Prothrombin Time 13.6 Seconds (11.1-14.7)
[2019-11-27 00:36] LABS: Partial Thromboplastin Time 29.7 SECONDS (22.3-36.8)
[2019-11-27 01:06] VITALS: BP 149/92; PULSE 60; RESP 14; O2SAT 97
[2019-11-27] MEDS: SODIUM CHLORIDE 0.9% IV 1,000 ML 999 ML IV CONT (01:07)
[2019-11-27] MEDS: ONDANSETRON INJ 4 MG/2 ML VIAL IV PUSH (01:07)
[2019-11-27] MEDS: BELLADONNA ALK/PHENOB ELIX 10 ML, MAG HYDROX/ALUMINUM HYD/SIMETH 30 ML, LIDOCAINE HCL 2... PO (01:18)
[2019-11-27 02:20] VITALS: BP 145/84; PULSE 59; RESP 18; O2SAT 99
--- NOTE | 2019-11-27 23:12 | ECG_ITS ---
Measurements Intervals [place] Rate: 66 P: 64 [place]: 144 QRS: -34 QRSD: 94 T: 58 QT: 441 QTc: 465 Interpretive Statements SINUS RHYTHM W ATRIAL PREMATURE COMPLEX AND VENTRICULAR BIGEMINY LEFT AXIS DEVIATION ANTEROSEPTAL INFARCT, AGE INDETERMINATE BASELINE ARTIFACT- I, II, AVR, AVL ABNORMAL ECG Electronically Signed On 11-27-2019 6:48:26 MANUFACTURING JOB TITLES by Marlon Joe D.O.
== END 2019-11-27 02:23 | disposition home or self-care (01) ==
PROVIDERS: Emergency Provider Emergency Medicine; PCP Family Medicine
DX: R10.84 Generalized abdominal pain (principal); K56.7 Ileus, unspecified; N39.0 Urinary tract infection, site not specified; K21.9 Gastro-esophageal reflux disease without esophagitis; I13.0 Hypertensive heart and chronic kidney disease with heart failure and stage 1 through stage 4 chronic kidney disease, or unspecified chronic kidney disease; I50.40 Unspecified combined systolic (congestive) and diastolic (congestive) heart failure; N18.3 Chronic kidney disease, stage 3 (moderate); I25.10 Atherosclerotic heart disease of native coronary artery without angina pectoris; I25.2 Old myocardial infarction; E78.5 Hyperlipidemia, unspecified; E03.9 Hypothyroidism, unspecified; K58.9 Irritable bowel syndrome, unspecified; I34.1 Nonrheumatic mitral (valve) prolapse; I48.0 Paroxysmal atrial fibrillation; Z79.01 Long term (current) use of anticoagulants; G62.9 Polyneuropathy, unspecified; G25.81 Restless legs syndrome; F41.8 Other specified anxiety disorders; J44.9 Chronic obstructive pulmonary disease, unspecified; G47.33 Obstructive sleep apnea (adult) (pediatric); R00.8 Other abnormalities of heart beat; Z96.653 Presence of artificial knee joint, bilateral; Z79.82 Long term (current) use of aspirin; Z96.643 Presence of artificial hip joint, bilateral; Z98.41 Cataract extraction status, right eye; Z98.42 Cataract extraction status, left eye; R94.31 Abnormal electrocardiogram [ECG] [EKG]; I49.1 Atrial premature depolarization
CPT/HCPCS: 36415; 74176; 80053; 83605; 84484; 85025; 85610; 85730; 93005; 96361; 96374; 99284; A9270; J2405; J7030

== ENCOUNTER 2019-12-01 08:03 | Observation (INO) | payer MEDICARE, SELFPAY ==
[2019-12-01] VITALS (35 sets, daily range): BP systolic 104–178; BP diastolic 64–150; PULSE 53–100; RESP 10–28; TEMP 36.2–36.7; O2SAT 91–100; BMI 15.8
--- NOTE | ~2019-12-01 | CT_ITS ---
EXAMINATION: CT brain wo con INDICATION: Head injury COMPARISON: 10/08/2018 TECHNIQUE: Standard unenhanced head CT. The dose-length product (DLP) was 605.33 mGy-cm. The mA was a djusted according to patient size. Iterative reconstruction technique was employed. FINDINGS: There is soft tissue swelling of the left frontal and parietal scalp. There is no acute int raparenchymal hemorrhage. No evidence of mass lesion. No evidence of acute infarction. There is mild periventricular and subcortical hypodensity probably related to small vessel ischemic disease. There is mild prominence of the sulci and ventricles related to cerebral atrophy. Intracranial calcified ce rebral atherosclerosis is noted. There are no extra-axial collections. There is no mass effect or mid line shift. Changes in the globes are likely from ocular lens surgery. The visualized sinuses and ma stoid air cells are well aerated. IMPRESSION: 1. Left frontal and parietal scalp soft tissue swelling without acute intracranial abnormality. 2. Age related findings. Reviewed, dictated and finalized at location A. HER COLORER IMPRESSION: 1. Left frontal and parietal scalp soft tissue swelling without acute intracran ial abnormality. 2. Age related findings.
--- NOTE | ~2019-12-01 | MR_ITS ---
EXAMINATION: MR brain/brain stem wo con DATE: 12/02/2019 12:16 INDICATION: Transient confusion. TECHNIQUE: Magnetic resonance imaging (MRI) of the brain and brainstem was performed without intraven ous contrast. Sequences included sagittal and axial T1-weighted FSE, axial diffusion-weighted FS EPI, axial T2*-weighted GRE, axial T2-weighted FLAIR Propeller, and axial T2-weighted Propeller. Apparent diffusion coefficient (ADC) maps were created. COMPARISON: Brain MRI 02/03/2012, head CT 12/01/2019 FINDINGS: There are scattered areas of nonspecific increased T2-weighted signal intensity in the cere bral white matter and katharine. There is no intracranial hemorrhage, acute infarction, or abnormal intrac ranial mass lesion. The ventricles are normal in size. There is mild mucosal thickening in the parana leonor sinuses. The mastoid air cells are normal. There are likely changes of ocular lens replacement xavier rgeries. IMPRESSION: 1. Worsened mild nonspecific cerebral white matter disease and pontine disease, which likely represen ts chronic small vessel ischemic disease. Reviewed, dictated and finalized at location A. NGUAL ACCOUNT MANAGER IMPRESSION: 1. Worsened mild nonspecific cerebral white matter disease and pontine disease, which likely represents chronic small vessel ischemic disease.
--- NOTE | ~2019-12-01 | US_ITS ---
EXAMINATION: US carotid duplex BI DATE: 12/02/2019 12:33 INDICATION: Syncope. TECHNIQUE: Grayscale, color Doppler, and pulsed Doppler images of the cervical carotid arteries were obtained. The degree of vessel stenosis is placed in one of the following categories: normal, <50%, 5 0-69%, >=70% but less than near-occlusion, near-occlusion, or total occlusion. Note that percent sten osis relative to normal distal artery lumen diameter is indirectly measured from velocity measurement s as described by Carlos, et al. Radiology 2003; 229:340-346. COMPARISON: None. FINDINGS: RIGHT: The right common carotid artery (CCA) peak systolic velocity (PSV) is 47 cm/s. The right internal car otid artery (ICA) PSV is 56 cm/s. The right ICA end-diastolic velocity (EDV) is 20 cm/s. The right IC A/CCA PSV ratio is 1.2. Grayscale and color Doppler images yield an estimate of <50% diameter reducti on from plaque in the ICA. There is antegrade flow in the right vertebral artery. LEFT: The left CCA PSV is 57 cm/s. The left ICA PSV is 83 cm/s. The left ICA EDV is 25 cm/s. The left ICA/C CA PSV ratio is 1.5. Grayscale and color Doppler images yield an estimate of <50% diameter reduction from plaque in the ICA. There is antegrade flow in the left vertebral artery. IMPRESSION: 1. <50% stenosis in the right internal carotid artery. 2. <50% stenosis in the left internal carotid artery. Reviewed, dictated and finalized at location A. LLMENT SERVICES DEAN
--- NOTE | ~2019-12-01 | CT_ITS ---
EXAMINATION: CT cervical spine wo con EXAM DATE: 12/01/2019 09:47 INDICATION: Fall. Neck injury. TECHNIQUE: Spiral CT of the cervical spine was performed without contrast. Axial images were reviewe d. Coronal and sagittal reformatted images were also reviewed. The dose-length product (DLP) for thi s examination was 605.33 mGy-cm. The exposure was tailored according to patient size (auto mA exposu re control), and iterative reconstruction (ASIR) was used as additional dose reduction technique. ere is no prior study for comparison. FINDINGS: There is aortic arterial sclerosis. There is no evidence of acute cervical fracture. The o dontoid process is intact. Pre-dens space is normal. Prevertebral soft tissue is normal. There are no soft tissue abnormalities identified. There is no disc space widening or traumatic vertebral bod y subluxation suspected. There is moderate to severe cervical spondylosis, arthropathy. A detailed level by level evaluation of spondylosis can be added as addendum if requested. IMPRESSION: 1. No acute cervical fracture. 2. Moderate to severe cervical spondylosis. Reviewed, dictated and finalized at location B. ECTION MANAGER
--- NOTE | ~2019-12-01 | XR_ITS ---
EXAMINATION: XR ribs LT 2V w CXR 2V INDICATION: Left-sided rib pain after fall TECHNIQUE: AP and lateral views of the chest and 3 views of the left ribs were obtained. COMPARISON: 11/15/2019 FINDINGS: The lungs are hyperinflated but free of acute opacities. There is no pleural effusion or pn eumothorax. Stable cardiomegaly is noted. There are coronary artery stents. There are minimally displ aced acute fractures of the left sixth and seventh ribs. IMPRESSION: 1. Minimally displaced fractures of the left sixth and seventh ribs. Reviewed, dictated and finalized at location A. E RIDING COACH OR INSTRUCTOR
--- NOTE | 2019-12-01 09:01 | ECG_ITS ---
Measurements Intervals [place] Rate: 81 P: 77 NC: 141 QRS: -12 QRSD: 90 T: 31 QT: 370 QTc: 430 Interpretive Statements SINUS RHYTHM ANTEROSEPTAL INFARCT, AGE INDETERMINATE BORDERLINE ST-T WAVE ABNORMALITY- INF/LAT LEADS ABNORMAL ECG Electronically Signed On 12-01-2019 9:46:04 HYDRAULIC MODELING ENGINEER by Marlon Joe D.O.
[2019-12-01 09:25] LABS: Basophils Percent Auto 0.5 % (0.2-1.2); Eosinophils Absolute Auto 0.1 K/mm3 (0-0.3); Eosinophils Percent Auto 1.5 % (0-4.4); Hematocrit 29.6 % (37.0-47.0); Hemoglobin 9.2 g/dL (12.0-15.0); Immature Granulocyte Absolute 0.03 K/mm3 (0.00-0.031); Immature Granulocyte Percent A 0.7 % (0-0.5); Lymphocytes Absolute Auto 0.74 K/mm3 (0.9-3.2); Lymphocytes Percent Auto 18.4 % (18.3-44.2); Mean Corpuscular HGB Conc 31.1 g/dl (32-36); Mean Corpuscular Hemoglobin 32.5 pg (26-34); Mean Corpuscular Volume 104.6 fl (80-100); Mean Platelet Volume 10.2 fl (7.4-10.4); Monocytes Absolute Auto 0.4 K/mm3 (0.1-0.6); Monocytes Percent Auto 9.4 % (2.6-8.5); Neutrophils Absolute Auto 2.8 K/mm3 (1.3-6.7); Neutrophils Percent Auto 69.5 % (45.5-73.1); Platelet Count Result 189 k/mm3 (150-375); Red Blood Count 2.83 M/mm3 (4.2-5.4); Red Cell Distribution Width 12.1 % (11.5-14.5)
[2019-12-01 09:35] LABS: INR 1.1; Prothrombin Time 13.6 Seconds (11.1-14.7)
[2019-12-01 09:41] LABS: Blood Urea Nitrogen 13 mg/dL (7-17); Calcium 8.5 mg/dL (8.4-10.2); Carbon Dioxide 26 mmol/L (22-30); Chloride 99 mmol/L (98-107); Estimated CRCL calculation 22 ml/min; Estimated Glomerular Filt Rate 39; Glucose 107 mg/dL (65-105); Potassium 3.9 mmol/L (3.4-5.0); Sodium 135 mmol/L (137-145)
[2019-12-01 09:44] LABS: Alanine Aminotransferase 17 U/L (4-35); Albumin Level 3.5 g/dL (3.5-5.1); Alkaline Phosphatase 53 U/L (38-126); Aspartate Amino Transferase 33 U/L (14-36); Bilirubin,Total 0.6 mg/dL (0.2-1.3); Lipase 86 U/L (23-300)
[2019-12-01 09:52] LABS: Troponin I < 0.012 ng/mL (0.000-0.034)
[2019-12-01 09:53] LABS: NT Pro B Type Natriuretic Pept 642 PG/ML (5-100)
[2019-12-01] MEDS: SODIUM CHLORIDE 0.9% IV 500 ML 999 ML IV CONT (10:09)
--- NOTE | 2019-12-01 10:17 | ED.CHESTPAIN ---
HPI - Chest Pain General Chief Complaint: Chest Pain Stated Complaint: Chest pain Time Seen by Provider: 12/01/19 09:07 Source: patient Mode of arrival: ambulatory Limitations: no limitations History of Present Illness HPI narrative: Patient is an 79-year-old female who presents to emergency department for evaluation of chest pain noting pain that began today that radiates from the pelvis up into the chest which is consistent with her chronic chest pain followed by cardiology patient on arrival denies any falls but does have contusion to the forehead thoracic paraspinal and left upper extremity. Patient notes moderate aching pain to the left ribs. Patient denies syncope loss of consciousness and on arrival is in the room in no distress. Pain is worse with activity and movement Related Data Home Medications Medication Instructions Recorded Confirmed B Complex Plus Vitamin C 150 mg PO DAILY 09/01/19 09/06/19 Eliquis 2.5 mg PO BID 09/01/19 09/06/19 Entresto 1 tablet PO Q12H 09/01/19 09/06/19 albuterol sulfate 2 puff INHALATION Q4-6H PRN 09/01/19 09/06/19 alprazolam 0.5 mg PO TID PRN 09/01/19 09/06/19 ascorbic acid (vitamin C) [Vitamin 500 mg PO DAILY 09/01/19 09/06/19 C With Debora Hips] aspirin [Children's Aspirin] 81 mg PO DAILY 09/01/19 09/06/19 atorvastatin 40 mg PO DAILY 09/01/19 09/06/19 cholecalciferol (vitamin D3) 5,000 unit PO DAILY 09/01/19 09/06/19 clopidogrel 75 mg PO DAILY 09/01/19 09/06/19 furosemide 40 mg PO DAILY 09/01/19 09/06/19 hydralazine 10 mg PO TID 09/01/19 09/06/19 levothyroxine 125 mcg PO DAILY 09/01/19 09/06/19 metoprolol succinate 50 mg PO DAILY 09/01/19 09/06/19 nitroglycerin 0.4 mg SUBLINGUAL Q5M PRN 09/01/19 09/06/19 pantoprazole 40 mg PO BID 09/01/19 09/06/19 ranitidine HCl 150 mg PO BID 09/01/19 09/06/19 trazodone 100 mg PO HS 09/01/19 09/06/19 valacyclovir 1,000 mg PO DAILY 09/01/19 09/06/19 Systane Ultra 1 drp RIGHTEYE BID 09/06/19 09/06/19 ferrous sulfate 325 mg PO DAILY 09/06/19 09/06/19 melatonin 5 mg PO HS PRN 09/06/19 09/06/19 prednisolone acetate 1 % LEFTEYE DAILY 09/06/19 09/06/19 topiramate [Topamax] 100 mg PO HS 09/06/19 09/06/19 Allergies Allergy/AdvReac Type Severity Reaction Status Date / Time Penicillins Allergy Unknown Rash Verified 11/15/19 19:18 Review of Systems Review of Systems: All systems reviewed & are unremarkable except as noted in HPI and below PMFSH Past Medical History Medical History Anemia Angina at rest Chronic anemia Chronic kidney disease, stage 3 Colitis Congestive heart failure Systolic and diastolic congestive heart failure with last echocardiogram in October 2018. COPD (chronic obstructive pulmonary disease) Coronary artery disease With multivessel surgical revascularization with PCI at [place] October 2017. Depression with anxiety Detached retina Right-sided, x2. Fibroids Frequent headaches GERD (gastroesophageal reflux disease) With history of esophageal stricture requiring dilatation. History of GI bleed History of rectal polyps HTN (hypertension) Hyperlipidemia Hypothyroidism IBS (irritable bowel syndrome) Mitral valve prolapse Myasthenia gravis Questionable history of. Myocardial infarct Obstructive sleep apnea Ocular herpes zoster History of shingles to the left eye, on chronic antiviral therapy. Paroxysmal atrial fibrillation Peripheral neuropathy Pneumonia Rectal polyp Restless leg syndrome Shingles Solitary rectal ulcer syndrome Ulcer UTI (urinary tract infection) Surgical History Surgical History H/O mastectomy History of endoscopic gastrointestinal surgery Hx of colonoscopy Status post appendectomy Status post bilateral hip replacements Status post bilateral knee replacements Status post breast biopsy Bilateral. Status post carpal tunnel release Status post cataract extraction bilateral Status post chol
[2019-12-01 10:28] LABS: Add Urine Microscopic? NO; Appearance Urine Clear (Clear); Bilirubin Urine Negative (Negative); Blood Urine Negative (Negative); Color Urine Yellow (Yellow); Glucose Urine UA Negative (Negative); Ketones Urine Negative (Negative); Leukocyte Esterase Ur Negative LEU/UL (Negative); Nitrate Urine Negative (Negative); Protein Urine Negative (Negative); Specific Grav Ur 1.011 (1.001-1.035); Urobilinogen Urine Negative mg/dL (<2.0)
[2019-12-01 12:52] LABS: Troponin I < 0.012 ng/mL (0.000-0.034)
--- NOTE | 2019-12-01 13:18 | PC.NURSE ---
This patient, Dhara Harry, was admitted to 3 [facility] Surg Room 311-01. Patient/family oriented to hospital policies and general routines including ID bracelet, bed and alarms, visiting hours, pain management, procedures, bathroom and other care routines, personal items, smoking policy, room service/diet, and visiting hours. Valuables list has been completed. Information on how to activate the Rapid Response Team has been discussed. Patient/Family are encouraged to report perceived risks to care and to ask questions if they do not understand what they are told or what they should do.
--- NOTE | 2019-12-01 13:30 | PM.IMHP ---
H&P: HPI History of Present Illness Chief complaint: Chest pain. <Sunshine Bowman PA-C - Last Filed: 12/01/19 15:35> Narrative: Dhara Harry is an 79-year-old female with multiple medical problems including coronary artery disease, chronic kidney disease, congestive heart failure, paroxysmal atrial fibrillation, and several other comorbidities who presented to the emergency department earlier this morning via private vehicle from home for evaluation of chest pain. She has frequent angina and has had numerous emergency department visits for such. This morning after waking up, she once again developed chest pain and took nitroglycerin as she does. It did not seem to help with the chest pain, and thus she came in for evaluation. On arrival to the emergency department, she was noted to have scattered bruising and contusions on her forehead, back, and left flank. Interestingly, she does not recall how these could have happened, does not recall falling, and does not believe she had a syncopal episode: ?I just cannot imagine what could have happened. Her cannot recall any incident either. With further questioning, she does mention the chest pain she had today was different than her typical angina. Instead, is located more so in the left anterior chest and into the left midline axillary region. It seems to be sharp in nature, is worse with the inspiration and movement. She has no complaints at the time my evaluation, but is obviously concerned as to how these bruises came about. No history of stroke or seizure. <Sunshine Bowman PA-C - Last Filed: 12/01/19 15:35> Review of Systems Review of Systems: Narrative: Twelve systems were reviewed with pertinent positives and negatives as per HPI. No fever, chills, or sweats. She denies headache. No sinus congestion, rhinorrhea, otalgia, or odynophagia. Weight has remained stable. Appetite is as per usual, and she had 2 pieces of toast this morning for breakfast. She has had some slight nausea today, but no vomiting. Mentions having a loose stool earlier this morning. She denies feeling lightheaded and dizzy upon standing. Denies vertigo and neuropathy. No auditory visual changes. She denies focal weakness and paresthesias. Except as documented, all other systems were reviewed and are negative. <Sunshine Bowman PA-C - Last Filed: 12/01/19 15:35> [facility] Past Medical History Medical History: Medical History (Updated 12/01/19 @ 15:26 by Sunshine Bowman PA-C) Chronic anemia Chronic kidney disease, stage 3 Congestive heart failure Systolic and diastolic congestive heart failure with last echocardiogram in October 2018. Coronary artery disease With multivessel surgical revascularization with PCI at [place] October 2017. Depression with anxiety Detached retina Right-sided, x2. Frequent headaches GERD (gastroesophageal reflux disease) With history of esophageal stricture requiring dilatation. History of GI bleed History of rectal polyps Hyperlipidemia Hypertension Hypothyroidism IBS (irritable bowel syndrome) Mitral valve prolapse Myasthenia gravis Questionable history of. Obstructive sleep apnea Ocular herpes zoster History of shingles to the left eye, on chronic antiviral therapy. Paroxysmal atrial fibrillation Peripheral neuropathy Rectal polyp Restless leg syndrome Shingles Solitary rectal ulcer syndrome <Sunshine Bowman PA-C - Last Filed: 12/01/19 15:35> Surgical History Surgical History: Surgical History (Updated 12/01/19 @ 15:08 by Sunshine Bowman PA-C) Status post appendectomy Status post bilateral hip replacements Status post bilateral knee replacements Status post breast biopsy Bilateral with benign histology. Status post carpal tunnel release Status post cataract extraction Bilateral. Status post cholecystectomy Status post laminectomy Lumbar spine. Status post LASIK surgery Status post rotator cuff rep
[2019-12-01 15:57] LABS: Troponin I < 0.012 ng/mL (0.000-0.034)
[2019-12-01] MEDS: PANTOPRAZOLE 40 MG TABLET PO (16:52)
[2019-12-01 17:56] LABS: Folic Acid > 20.0 ng/mL (2.76->20)
[2019-12-01 19:14] LABS: Iron 48 ug/dL (37-170)
[2019-12-01 19:23] LABS: Percent Iron Saturation 16 % (20-50)
[2019-12-01 19:46] LABS: Thyroid Stimulating Hormone Reflex 0.258 uIU/mL (0.465-4.68)
[2019-12-01 20:48] LABS: Free T4 Free Thyroxine Reflex 1.76 ng/dL (0.78-2.19)
[2019-12-01] MEDS: ACETAMINOPHEN 500 MG TABLET PO (20:54)
[2019-12-01] MEDS: TRAZODONE HCL 50 MG TABLET 100 MG PO (20:54)
[2019-12-01] MEDS: ALPRAZOLAM 0.5 MG TABLET PO (21:58)
[2019-12-01] MEDS: hydrALAZINE 10 MG TABLET PO (21:58)
[2019-12-01] MEDS: CALCIUM CARBONATE (TUMS) 500 MG (200 MG ELEMENTAL) PO (22:10)
[2019-12-01 22:17] LABS: Total Triiodothyronine (T3) 0.69 NG/ML (0.97-1.69)
[2019-12-02] VITALS (19 sets, daily range): BP systolic 117–170; BP diastolic 59–90; PULSE 61–110; RESP 16–20; TEMP 36.5–37.2; O2SAT 95–99
--- NOTE | 2019-12-02 | ECHO_ITS ---
Patient Info Name: Dhara Harry Age: 79 years : 1940 Gender: Female Ht: 66 in Wt: 100 lbs BSA: 1.44 m2 HR: 67 bpm BP: 153 / 80 mmHg Heart Rhythm: Sinus Rhythm Technical Quality: Excellent Exam Date: 12/02/2019 9:27 AM Exam Location: [facility] Pulmonary Patient Status: Inpatient Admit Date: 12/01/2019 Staff Ordering Physician: Jennifer Storey MD Gyroscopic Instrument Tester: Luke Bear RDCS Attending Provider: Jennifer Storey MD Exam Type: CA echo doppler color flow Study Info Indications R55 - Syncope and collapse R07.9 - Chest pain, unspecified Complete two-dimensional, color flow and Doppler transthoracic echocardiogram is performed. Strain analysis performed. History/Risk Factors Chest pain; syncope, CHF, CAD. Summary 1. Left ventricular chamber dimension is normal. 2. Left ventricular systolic function is normal, estimated at 50-55%. 3. There is mildly increased left ventricular wall thickness. 4. The left ventricular diastolic function is grade I diastolic dysfunction. 5. Left atrial chamber dimension is moderately enlarged. 6. Right atrial chamber dimension is moderately enlarged. 7. There is mild to moderate aortic valve regurgitation. 8. There is mild mitral valve regurgitation. 9. There is mild tricuspid valve regurgitation. 10. Mild pulmonary hypertension, estimated pulmonary arterial systolic pressure is 38 mmHg. 11. There is mild pulmonic regurgitation. 12. There is small pericardial effusion. 13. external compression of the left atrium. Left Ventricle Left ventricular chamber dimension is normal. Left ventricular systolic function is normal, estimated at 50-55%. There is mildly increased left ventricular wall thickness. The left ventricular diastolic function is grade I diastolic dysfunction. Right Ventricle Right ventricular chamber dimension is normal. Right ventricular systolic function is normal. Left Atria Left atrial chamber dimension is moderately enlarged. Right Atria Right atrial chamber dimension is moderately enlarged. Atrial Septum Intact interatrial septum visualized by color flow imaging. Aortic Valve The aortic valve is trileaflet. There is no aortic valve sclerosis. There is no aortic valve stenosis. There is mild to moderate aortic valve regurgitation. Pulmonic Valve The pulmonic valve is normal. There is no pulmonic valve stenosis. There is mild pulmonic regurgitation. Mitral Valve The mitral valve has thickened leaflets. There is no mitral valve stenosis. There is mild mitral valve regurgitation. Tricuspid Valve The tricuspid valve leaflets are normal. There is no significant tricuspid valve stenosis. There is mild tricuspid valve regurgitation. Mild pulmonary hypertension, estimated pulmonary arterial systolic pressure is 38 mmHg. Other Findings external compression of the left atrium. Pericardium/Pleural The pericardium appears normal. There is small pericardial effusion. Inferior Vena Cava Dilated inferior vena cava with >50% collapse upon inspiration consistent with elevated right atrial pressure, 15 mmHg. Aorta The aortic root size at the sinus of Valsalva is normal. Left Ventricular Outflow Tract Name Value Normal LVOT 2D
[2019-12-02] MEDS: ACETAMINOPHEN 500 MG TABLET PO ×3 (01:51→17:17)
[2019-12-02] MEDS: LEVOTHYROXINE SODIUM 125 MCG TABLET PO (05:32)
[2019-12-02] MEDS: hydrALAZINE 10 MG TABLET PO ×3 (05:32→22:19)
[2019-12-02 06:47] LABS: Basophils Percent Auto 0.4 % (0.2-1.2); Eosinophils Absolute Auto 0.1 K/mm3 (0-0.3); Eosinophils Percent Auto 1.7 % (0-4.4); Hematocrit 27.5 % (37.0-47.0); Immature Granulocyte Absolute 0.01 K/mm3 (0.00-0.031); Immature Granulocyte Percent A 0.2 % (0-0.5); Lymphocytes Percent Auto 18.7 % (18.3-44.2); Mean Corpuscular HGB Conc 32.7 g/dl (32-36); Mean Corpuscular Hemoglobin 32.8 pg (26-34); Mean Corpuscular Volume 100.4 fl (80-100); Mean Platelet Volume 10.1 fl (7.4-10.4); Monocytes Absolute Auto 0.5 K/mm3 (0.1-0.6); Monocytes Percent Auto 9.6 % (2.6-8.5); Neutrophils Absolute Auto 3.3 K/mm3 (1.3-6.7); Neutrophils Percent Auto 69.4 % (45.5-73.1); Platelet Count Result 200 k/mm3 (150-375); Red Blood Count 2.74 M/mm3 (4.2-5.4); White Blood Count 4.8 K/mm3 (4.5-10.0)
[2019-12-02 07:00] LABS: Blood Urea Nitrogen 13 mg/dL (7-17); Calcium 8.6 mg/dL (8.4-10.2); Carbon Dioxide 26 mmol/L (22-30); Chloride 100 mmol/L (98-107); Estimated CRCL calculation 28 ml/min; Estimated Glomerular Filt Rate 43; Glucose 80 mg/dL (65-105); Potassium 3.8 mmol/L (3.4-5.0); Sodium 138 mmol/L (137-145)
[2019-12-02] MEDS: ALPRAZOLAM 0.5 MG TABLET PO ×2 (07:27→21:04)
[2019-12-02] MEDS: VALACYCLOVIR HCL 500 MG TABLET 1000 MG PO (09:14)
[2019-12-02] MEDS: SACUBITRIL/VALSARTAN 24-26 MG TABLET 1 TAB PO ×2 (09:14→21:05)
[2019-12-02] MEDS: CHOLECALCIFEROL 1,000 UNIT TABLET 5000 UNITS PO (09:15)
[2019-12-02] MEDS: SPIRONOLACTONE 25 MG TABLET PO (09:16)
[2019-12-02] MEDS: PANTOPRAZOLE 40 MG TABLET PO ×2 (09:16→16:38)
[2019-12-02] MEDS: METOPROLOL SUCCINATE EXT REL 50 MG TABCR PO (09:17)
[2019-12-02] MEDS: ASCORBIC ACID 500 MG TABLET PO (09:17)
[2019-12-02] MEDS: FUROSEMIDE 40 MG TABLET PO (09:18)
[2019-12-02] MEDS: FERROUS SULFATE 324 MG TABLET PO (09:18)
[2019-12-02] MEDS: VITAMIN B COMPLEX/VIT C CAPSULE 1 EACH PO (09:19)
[2019-12-02] MEDS: ONDANSETRON INJ 4 MG/2 ML VIAL IV PUSH (11:22)
--- NOTE | 2019-12-02 13:30 | NEURO_ITS ---
TEST: ELECTROENCEPHALOGRAM DIAGNOSIS: TRANSIENT CONFUSION PATIENT NUMBER: [id number] EEG NUMBER: [id number] RECORDING DATE: 12/02/19 CLINICAL HISTORY: Patient fell at home and has no idea how or when it happened. CONDITION OF RECORDING: Awake, drowsy and sleep EEG DESCRIPTION: Basic resting occipital frequency consists of moderate amount of fairly well organized low voltage 8-10hz alpha mixed with low voltage 15-18hz beta. During drowsiness low voltage beta activity is seen diffusely mixed with waxing and waning posterior alpha rhythms. Bilateral symmetrical sleep activity is seen during sleep. Hyperventilation and photic stimulation were not done. Nonparoxysmal. Nonfocal. Nonlateralizing. IMPRESSION: Normal record. [facility]
--- NOTE | 2019-12-02 14:43 | PM.IMPN ---
Progress Note: A&P Assessment and Plan (1) Transient alteration of awareness: Code(s): R40.4 - Transient alteration of awareness Status: Acute Assessment and Plan: Patient is unaware as to how she obtained the rib fractures and multiple contusions. Would consider syncopal episode, fall causing concussion and amnesia, seizure, versus other. Will monitor on telemetry overnight. Will obtain brain MRI and EEG. 12/02/19 14:43 Patient is 79-year-old female with history of severe systolic dysfunction with ejection fraction 20% hypertension atrial fibrillation for which patient is taking Eliquis patient was brought to the emergency department with a complaint of chest pain she was also found to bruising and tenderness along the left ribs, patient states he may have a fall in 2 days prior to coming to emergency department however see does not remember exactly what happened or there any prior symptoms before falling, she does not remember how she got up after falling and what happened however her symptoms were getting worse and complains of chest pain and bruising therefore patient presented emergency department, her 3 sets of cardiac enzymes are negative CT scan of the head is negative for any acute injury or, bleeding however she does have a soft tissue injury to the forehead, smilarly MRI of brain did no show any acute injury, similarly carotid ultrasound did not show any stenosis and cardiac echo showed improvement in patient ejection fraction from 20% to 50%, however patient with significant fall I am concerned the patient is on Eliquis will consult Cardiology further recommendation to continue Eliquis or to stop. Will have a PT OT evaluate the patient patient will benefit going to acute rehab before going home (2) Closed head injury: Code(s): S09.90XA - Unspecified injury of head, initial encounter Status: Acute Assessment and Plan: She is alert and oriented at the time my evaluation. Will perform neurologic checks q.4 hours. Hold blood thinners for 24 hours. (3) Left rib fracture: Code(s): S22.32XA - Fracture of one rib, left side, initial encounter for closed fracture Status: Acute Assessment and Plan: Minimally displaced fractures of left 6th and 7th ribs. Encourage incentive spirometry. (4) Multiple contusions: Code(s): T07.XXXA - Unspecified multiple injuries, initial encounter Status: Acute Assessment and Plan: Multiple contusions noted on the scalp, back, left arm, and left chest. Neurologic checks given head trauma. PT/OT consulted. Initiate fall precautions. (5) Chest pain: Code(s): R07.9 - Chest pain, unspecified Status: Acute Assessment and Plan: Patient reports frequent angina, and has had numerous ER visits for such. Chest pain today seems somewhat atypical, is likely musculoskeletal in etiology. (6) Orthostatic hypotension: Code(s): I95.1 - Orthostatic hypotension Status: Acute Assessment and Plan: Orthostatic vital signs obtained in the emergency department shortly after arrival as follows: Supine blood pressure 141/67, pulse 55; sitting blood pressure 129/75, pulse 70; standing blood pressure 117/72, pulse 69. It is not documented whether not the patient was symptomatic with this, and she denies such at the time my evaluation. Will continue to monitor orthostatic vital signs Q shift. (7) Chronic kidney disease, stage 3: Code(s): N18.3 - Chronic kidney disease, stage 3 (moderate) Status: Acute Assessment and Plan: Creatinine is stable on review of previous labs. (8) Chronic anemia: Code(s): D64.9 - Anemia, unspecified Status: Acute Assessment and Plan: Hemoglobin and hematocrit are stable on review of previous labs. MCV has steadily increased over the past 6 months, thus will check B12 and folates. Patient B12 and fo
--- NOTE | 2019-12-02 16:18 | PM.CNCAR ---
Assessment and Plan Assessment and plan (1) Current use of skilled nursing anticoagulation: Code(s): Z79.01 - residential (current) use of anticoagulants Status: Acute Assessment and Plan: Anticoagulated with Eliquis for paroxysmal atrial fibrillation. Anticoagulation should be stopped at this time due to significant fall with injury. Atrial fibrillation was noted in January of 2019. Subsequent EKGs reviewed in the chart from January of 2019 through 12/01/2019 revealed normal sinus rhythm. Risk certainly outweighs the benefit. Stop Eliquis. (2) Paroxysmal atrial fibrillation: Code(s): I48.0 - Paroxysmal atrial fibrillation Status: Inactive Assessment and Plan: As above. Continue Metoprolol succinate. (3) Transient alteration of awareness: Code(s): R40.4 - Transient alteration of awareness Status: Acute Assessment and Plan: Concerning that she obviously had a fall and is unaware of any of the details. Could have been a syncopal event. Was orthostatic in the emergency room. She did receive some IV fluids. No symptoms were documented however. Carotid Doppler study was negative. MRI revealed worsened mild nonspecific cerebral white matter disease and pontine disease which likely represents chronic small vessel ischemic disease. Echocardiogram 12/02/2019: LV chamber dimension is normal. LV systolic function is normal estimated 50-55%. Mild increased left ventricular wall thickness. LV diastolic function is grade 1 diastolic dysfunction. Left atrial chamber dimension is moderately enlarged. Right atrial chamber dimension is moderately enlarged. [id number] aortic valve regurgitation. Mild mitral valve regurgitation. Mild tricuspid valve regurgitation. Mild pulmonary hypertension estimated pulmonary arterial systolic pressure is 38 mm Hg. Mild pulmonic regurgitation. Small pericardial effusion. External compression of the left atrium. EEG pending. (4) Left rib fracture: Qualifiers: Encounter type: initial encounter Rib fracture type: multiple ribs Fracture type: closed Qualified Code(s): S22.42XA - Multiple fractures of ribs, left side, initial encounter for closed fracture Code(s): S22.32XA - Fracture of one rib, left side, initial encounter for closed fracture Status: Acute Assessment and Plan: Minimally displaced fractures in the left 6th and 7th rib. (5) Multiple contusions: Code(s): T07.XXXA - Unspecified multiple injuries, initial encounter Status: Acute Assessment and Plan: Monitor .lo (6) Chest pain: Qualifiers: Chest pain type: other chest pain Qualified Code(s): R07.89 - Other chest pain Code(s): R07.9 - Chest pain, unspecified Status: Acute Assessment and Plan: Noncardiac. Troponin negative x3. Last cardiac catheterization 10/2018 as above Continue clopidogrel and beta-wilmer. Aspirin was discontinued by Dr. Aj at the August visit. (7) Chronic kidney disease, stage 3: Code(s): N18.3 - Chronic kidney disease, stage 3 (moderate) Status: Acute Assessment and Plan: Stable (8) Orthostatic hypotension: Code(s): I95.1 - Orthostatic hypotension Status: Acute Assessment and Plan: Orthostatic in the emergency room. Continue to monitor. (9) Closed head injury: Qualifiers: Encounter type: initial encounter Qualified Code(s): S09.90XA - Unspecified injury of head, initial encounter Code(s): S09.90XA - Unspecified injury of head, initial encounter Status: Acute Assessment and Plan: Management per hospitalist service (10) Ischemic cardiomyopathy: Code(s): I25.5 - I
[2019-12-02] MEDS: CALCIUM CARBONATE (TUMS) 500 MG (200 MG ELEMENTAL) PO ×2 (17:18→22:19)
[2019-12-02] MEDS: SIMETHICONE 125 MG CHEW TAB PO (18:49)
[2019-12-02] MEDS: TRAZODONE HCL 50 MG TABLET 100 MG PO (21:04)
[2019-12-03] VITALS: PULSE 58
[2019-12-03 04:00] VITALS: PULSE 68
[2019-12-03] MEDS: LEVOTHYROXINE SODIUM 125 MCG TABLET PO (05:32)
[2019-12-03] MEDS: hydrALAZINE 10 MG TABLET PO ×2 (05:32→14:20)
[2019-12-03 06:00] VITALS: BP 119/64; PULSE 68; RESP 18; TEMP 36.5; O2SAT 97
[2019-12-03 08:00] VITALS: PULSE 115
[2019-12-03] MEDS: SACUBITRIL/VALSARTAN 24-26 MG TABLET 1 TAB PO (08:45)
[2019-12-03 08:46] VITALS: PULSE 72
[2019-12-03] MEDS: METOPROLOL SUCCINATE EXT REL 50 MG TABCR PO (08:46)
[2019-12-03] MEDS: FERROUS SULFATE 324 MG TABLET PO (08:47)
[2019-12-03] MEDS: CHOLECALCIFEROL 1,000 UNIT TABLET 5000 UNITS PO (08:48)
[2019-12-03] MEDS: VALACYCLOVIR HCL 500 MG TABLET 1000 MG PO (08:48)
[2019-12-03] MEDS: ASCORBIC ACID 500 MG TABLET PO (08:49)
[2019-12-03] MEDS: PANTOPRAZOLE 40 MG TABLET PO (08:50)
[2019-12-03] MEDS: FUROSEMIDE 40 MG TABLET PO (08:50)
[2019-12-03] MEDS: SPIRONOLACTONE 25 MG TABLET PO (08:51)
[2019-12-03] MEDS: VITAMIN B COMPLEX/VIT C CAPSULE 1 EACH PO (08:52)
[2019-12-03] MEDS: ACETAMINOPHEN 500 MG TABLET PO (08:58)
--- NOTE | 2019-12-03 11:23 | PM.PNCARD ---
Progress Note: A&P Additional Plan 79-year-old lady with coronary artery disease history of previous atrial fibrillation also with multiple ED visits with abdominal discomfort I am not sure if a specific diagnosis of this has ever been established. He now presents with a significant fall rib fractures and some head trauma. We are consulted regarding the decision to continue anticoagulation or not. I agree with yesterday's opinion that systemic anticoagulation at this point has more risk than benefit and should be discontinued. Will see the patient p.r.n. Nathaniel Aj MD [facility] Subjective Date/time seen: Date of service:12/03/19 11:23 Interval history: Follow-up visit for opinion regarding anticoagulation 79-year-old white female with: history of atrial fibrillation recently and currently in sinus rhythm. Patient is anticoagulated with apixaban and had a significant fall at home resulting in some rib fractures and some head contusions as well. History of coronary artery disease with difficult, high risk PCI that was done downtown at [facility] with no recent clinical evidence of ischemia. Ongoing abdominal discomfort with no specific diagnosis having been made multiple recent ER visits. No evidence that this is a cardiac problem Exam Const: General: comfortable and no acute distress Other: very frail cachectic-appearing elderly lady was pleasant cooperative and in no distress HENMT: Mouth: Yes moist mucous membranes Eyes: Sclera: sclerae normal Pupils: Equal, round and reactive pupils present Neck: Neck: supple and no JVD Thyroid: thyroid normal Resp: Effort & Inspection: normal respiratory effort Auscultation: clear to auscultation bilaterally Other: ecchymoses about the left lower lateral chest wall in the region of the 5th rib fractures Cardio: Rate: regular rate Rhythm: regular rhythm GI: Auscultation: normal bowel sounds Skin: General skin exam: normal color Neuro: Cognition (Neuro): normal cognition Extrem: General: normal to inspection Objective Data Vital Signs Vital Signs: Vital Signs - 24 hr 12/02/19 12:00 12/02/19 14:30 12/02/19 14:35 Temperature 36.8 C Pulse Rate 74 Respiratory Rate 20 Blood Pressure 132/90 127/71 137/83 Pulse Oximetry 99 12/02/19 14:40 12/02/19 16:00 12/02/19 20:00 Temperature 37.2 C Pulse Rate 65 65 Respiratory Rate 18 Blood Pressure 135/72 149/81 H Pulse Oximetry 99 12/02/19 20:30 12/02/19 20:35 12/02/19 20:40 Temperature 37.2 C 37.2 C 37.2 C Pulse Rate 71 64 93 Respiratory Rate 18 18 18 Blood Pressure 147/80 H 149/81 H 152/72 H Pulse Oximetry 99 99 99 12/02/19 22:00 12/03/19 00:00 12/03/19 04:00 Temperature 36.5 C Pulse Rate 61 58 L 68 Respiratory Rate 18 Blood Pressure 117/59 L Pulse Oximetry 95 12/03/19 06:00 12/03/19 08:46 Temperature 36.5 C Pulse Rate 68 72 Respiratory Rate 18 Blood Pressure 119/64 Pulse Oximetry 97 Intake/Output Intake/Output: Intake & Output 11/30/19 12/01/19 12/02/19 12/03/19 23:59 23:59 23:59 23:59 Intake Total 820 1080 610 Output Total 600 900 Balance 220 180 610 Meds/Results Medications: Active Medications Generic Name Dose Route Start Last Admin Trade Name Freq PRN Reason Stop Dose Admin Acetaminophen 500 mg 12/01/19 20:25 12/03/19 08:58 Tylenol Tablet PO 500 mg 6XD PRN Administration MILD PAIN/FEVER Albuterol 2 puff 12/01/19 15:49 Proventil Hfa INHALATION Q4-6H PRN Shortness Of Breath Or Wheezing Alprazolam 0.5 mg 12/01/19 15:49 12/02/19 21:04 Xanax PO 0.5 mg TID PRN Administration Anxiety Ascorbic Acid 500 mg 12/02/19 09:00 12/03/19 08:49 Vitamin C PO 500 mg DAILY JESSICA Administration Calcium Carbonate 200 mg 12/01/19 21:55 12/02/19 22:19 Tums PO 200 mg Q6H PRN Administration Indigestion Ferrous Sulfate 324 mg 12/02/19 09:00 12/03/19 08:47 Ferrou
[2019-12-03 12:00] VITALS: PULSE 73
--- NOTE | 2019-12-03 13:41 | PM.DS ---
DS: Diagnosis Admitting Diagnosis Admitting Diagnosis: Transient alteration of awareness Discharge Diagnosis (1) Transient alteration of awareness: Code(s): R40.4 - Transient alteration of awareness Status: Acute Assessment and Plan: Patient is 79-year-old female with history of severe systolic dysfunction with ejection fraction 20% hypertension atrial fibrillation for which patient is taking Eliquis patient was brought to the emergency department with a complaint of chest pain she was also found to bruising and tenderness along the left ribs, patient 3 sets of cardiac enzymes are negative, CT scan of the head is negative for any acute injury or, bleeding however she does have a soft tissue injury to the forehead, MRI of brain did no show any acute injury, carotid ultrasound did not show any stenosis and cardiac echo showed improvement in patient ejection fraction from 20% to 50%. See history as per previous notes, pt seen by cardiology prior to discharge. Pt to continue with her medications as before. Tests are all essential negative in hospital. Appears to be a accidental fall, pt to be discharged with home health, for further PT and OT. Pt has sustained fall with a bruise on her left side of her head and broken ribs. Long discussion about walking hazards in the home add avoidance of further falls. (2) Closed head injury: Qualifiers: Encounter type: initial encounter Qualified Code(s): S09.90XA - Unspecified injury of head, initial encounter Code(s): S09.90XA - Unspecified injury of head, initial encounter Status: Acute Assessment and Plan: She is alert and oriented at the time my evaluation. (3) Left rib fracture: Qualifiers: Encounter type: initial encounter Fracture type: closed Rib fracture type: multiple ribs Qualified Code(s): S22.42XA - Multiple fractures of ribs, left side, initial encounter for closed fracture Code(s): S22.32XA - Fracture of one rib, left side, initial encounter for closed fracture Status: Acute Assessment and Plan: Minimally displaced fractures of left 6th and 7th ribs. Encourage incentive spirometry at home (4) Multiple contusions: Code(s): T07.XXXA - Unspecified multiple injuries, initial encounter Status: Acute Assessment and Plan: Multiple contusions noted on the scalp, back, left arm, and left chest. Was observed in hospital. . (5) Chest pain: Qualifiers: Chest pain type: other chest pain Qualified Code(s): R07.89 - Other chest pain Code(s): R07.9 - Chest pain, unspecified Status: Acute Assessment and Plan: Patient reports frequent angina. Chest pain today seems somewhat atypical, is likely musculoskeletal in etiology. (6) Orthostatic hypotension: Code(s): I95.1 - Orthostatic hypotension Status: Resolved Assessment and Plan: Orthostatic vital signs obtained in the emergency department shortly after arrival as follows: Supine blood pressure 141/67, pulse 55; sitting blood pressure 129/75, pulse 70; standing blood pressure 117/72, pulse 69. (7) Chronic kidney disease, stage 3: Code(s): N18.3 - Chronic kidney disease, stage 3 (moderate) Status: Acute Assessment and Plan: Creatinine is stable (8) Chronic anemia: Code(s): D64.9 - Anemia, unspecified Status: Acute Assessment and Plan: Hemoglobin and hematocrit are stable on review of previous labs. Patient B12 and folate is with normal level DS: Summary Time Spent with Patient Time attestation: Total time spent providing and/or coordinating discharge services:38 minutes on day of discharge Exam Narrative: Exam Narrative: Elderly frail with dementia Const: General: comfortable and no acute distress HENMT: General nose exam: Normal nares present Mouth: Yes moist mucous membranes Eyes:
== END 2019-12-03 14:20 | disposition home health service (06) ==
LOC: ANHED 12:31 → ANH3MEDSUR 14:34
PROVIDERS: Emergency Medicine Emergency Medical Services; Physician Assistant; Admitting Provider Family Medicine; Emergency Provider Emergency Medicine; PCP Family Medicine; Visit Provider Family Medicine
DX: R07.89 Other chest pain (principal); R40.4 Transient alteration of awareness; I95.1 Orthostatic hypotension; S22.42XA Multiple fractures of ribs, left side, initial encounter for closed fracture; S00.03XA Contusion of scalp, initial encounter; T07.XXXA Unspecified multiple injuries, initial encounter; D64.9 Anemia, unspecified; F03.90 Unspecified dementia, unspecified severity, without behavioral disturbance, psychotic disturbance, mood disturbance, and anxiety; I25.10 Atherosclerotic heart disease of native coronary artery without angina pectoris; I25.5 Ischemic cardiomyopathy; I48.0 Paroxysmal atrial fibrillation; I13.0 Hypertensive heart and chronic kidney disease with heart failure and stage 1 through stage 4 chronic kidney disease, or unspecified chronic kidney disease; N18.3 Chronic kidney disease, stage 3 (moderate); I50.22 Chronic systolic (congestive) heart failure; I08.3 Combined rheumatic disorders of mitral, aortic and tricuspid valves; I27.20 Pulmonary hypertension, unspecified; J44.9 Chronic obstructive pulmonary disease, unspecified; E78.5 Hyperlipidemia, unspecified; E03.9 Hypothyroidism, unspecified; G62.9 Polyneuropathy, unspecified; F41.8 Other specified anxiety disorders; G47.33 Obstructive sleep apnea (adult) (pediatric); I25.2 Old myocardial infarction; Z79.01 Long term (current) use of anticoagulants; Z79.899 Other long term (current) drug therapy; Z96.643 Presence of artificial hip joint, bilateral; Z96.653 Presence of artificial knee joint, bilateral; I65.23 Occlusion and stenosis of bilateral carotid arteries
CPT/HCPCS: 36415; 51701; 70450; 70551; 71045; 71101; 72125; 80048; 80076; 81003; 82607; 82728; 82746; 83540; 83550; 83690; 83880; 84439; 84443; 84480; 84484; 85025; 85610; 85730; 93005; 93306; 93880; 95816; 96374; 97110; 97161; 97165; 97530; 99285; A9270; G0378; J2405; J7040

== ENCOUNTER 2019-12-12 13:44 | Observation (INO) | payer MEDICARE, SELFPAY ==
[2019-12-12] VITALS (8 sets, daily range): BP systolic 149–185; BP diastolic 73–91; PULSE 55–84; RESP 16–19; TEMP 36.2–36.8; O2SAT 68–100; BMI 16.1
--- NOTE | ~2019-12-12 | CT_ITS ---
EXAMINATION: CTA abdomen pelvis EXAM DATE: 12/13/2019 16:51 INDICATION: Fall. Mid abdominal pain. TECHNIQUE: Spiral CT angiogram of the abdomen and pelvis was performed following intravenous injectio n of 100 mL Omnipaque 350. Axial, coronal and sagittal images were reviewed. Maximum intensity proje ction 3-D reconstructions of the arteries were created by the technologist on dedicated workstation. The dose-length product (DLP) for this examination was 227.38 mGy-cm. The exposure was tailored ac cording to patient size (auto mA exposure control), and iterative reconstruction (ASIR) was used as a dditional dose reduction technique. Comparison is made to prior examination from 11/26/2019. FINDINGS: There is no abdominal aortic dissection. There is mild stenosis at the origin of the celiac artery, but no significant stenosis of the superior mesenteric or renal arteries. Inferior mesenteri c artery is patent. There is mild scattered aortoiliac arterial sclerosis and some ectasia. The live r, spleen, adrenal glands and pancreas are unremarkable. Gallbladder is unremarkable. No biliary ob struction. Small bilateral renal lesions most likely cysts and hemorrhagic cysts. Probable hysterec anshu but the pelvis is poorly visualized due to bilateral hip replacements. Bladder also poorly visua lized. Calcifications in the pelvis are believed to be phleboliths. There is no retroperitoneal or pelvic lymphadenopathy. Appendix not identified. The stomach and small bowel are unremarkable. Extensive sigmoid colonic di verticulosis without definite acute inflammation. No free intraperitoneal gas. The heart is toro l in size. There are no pericardial or pleural effusions. The lung bases are unremarkable. Again t here is dense sclerotic focus in the left iliac crest measuring 1.5 cm, probably bone island. There are no acute fractures identified. IMPRESSION: 1. No acute intra-abdominal findings. 2. Extensive sigmoid diverticulosis, other chronic findings above. Reviewed, dictated and finalized at location A. [employer]
--- NOTE | 2019-12-12 14:09 | ED.ABDPAIN ---
HPI - Abdominal Pain General Chief Complaint: Abdominal Pain Stated Complaint: abd pain, nausea Time Seen by Provider: 12/12/19 14:01 Source: patient Mode of arrival: ambulatory Limitations: no limitations History of Present Illness HPI narrative: An 79 y/o female presents to the ED with c/o diffuse ABD pain. Pt states that the ABD pain started this morning and has been constant since. She does not note any aggravating or alleviating factors. Pt reports diarrhea, but denies N/V, fever, and any urinary symptoms. She adds that she was recently hospitalized due to a HI secondary to a fall. This is her 13 visit to the ED for ABD pain this year. Pt has no other complaints at this time. MD elicited complaint: abdominal pain (Diffuse) Pain Consistency: constant Exacerbating factors: nothing Relieving factors: nothing Associated symptoms: diarrhea Related Data Home Medications Medication Instructions Recorded Confirmed B Complex Plus Vitamin C 150 mg PO DAILY 09/01/19 12/01/19 Entresto 1 tablet PO Q12H 09/01/19 12/01/19 albuterol sulfate 2 puff INHALATION Q4-6H PRN 09/01/19 12/01/19 alprazolam 0.5 mg PO TID PRN 09/01/19 12/01/19 ascorbic acid (vitamin C) [Vitamin 500 mg PO DAILY 09/01/19 12/01/19 C With Debora Hips] cholecalciferol (vitamin D3) 5,000 unit PO DAILY 09/01/19 12/01/19 clopidogrel 75 mg PO DAILY 09/01/19 12/01/19 furosemide 40 mg PO DAILY 09/01/19 12/01/19 hydralazine 10 mg PO TID 09/01/19 12/01/19 levothyroxine 125 mcg PO DAILY 09/01/19 12/01/19 metoprolol succinate 50 mg PO DAILY 09/01/19 12/01/19 nitroglycerin 0.4 mg SUBLINGUAL Q5M PRN 09/01/19 12/01/19 pantoprazole 40 mg PO BID 09/01/19 12/01/19 ranitidine HCl 150 mg PO BID 09/01/19 12/01/19 trazodone 100 mg PO HS 09/01/19 12/01/19 valacyclovir 1,000 mg PO DAILY 09/01/19 12/01/19 ferrous sulfate 325 mg PO DAILY 09/06/19 12/01/19 prednisolone acetate 1 % RIGHTEYE DAILY 09/06/19 12/01/19 topiramate [Topamax] 100 mg PO HS 09/06/19 12/01/19 acetaminophen 500 mg PO 4-6XD 12/01/19 12/01/19 spironolactone 25 mg PO DAILY 12/01/19 12/01/19 vitamin B complex [B 150 tablet PO DAILY 12/01/19 12/01/19 Complex-Vitamin B12] Allergies Allergy/AdvReac Type Severity Reaction Status Date / Time Penicillins Allergy Unknown Rash Verified 12/12/19 14:00 Review of Systems Review of Systems: All systems reviewed & are unremarkable except as noted in HPI and below Constitutional: Constitutional: Denies fever(s) Gastrointestinal: Gastrointestinal: Reports abdominal pain (Diffuse), Reports diarrhea, Denies nausea and Denies vomiting Genitourinary: Genitourinary: Denies hematuria, Denies nocturia, Denies dysuria, Denies urinary incontinence, Denies urinary hesitancy and Denies urinary urgency [facility] Past Medical History Medical History Chronic anemia Chronic kidney disease, stage 3 Congestive heart failure Systolic and diastolic congestive heart failure Echo 01/14/2019: EF measured at 39%. September 2018 EF was 25%. Echo 12/02/2019 EF 50-55%. Grade 1 diastolic function. Coronary artery disease With multivessel surgical revascularization with PCI at [place] October 2017. Cardiac catheterization 10/17/2018-mild preserved intra-stent luminal diameter Current use of assisted anticoagulation Depression with anxiety Detached retina Right-sided, x2. Frequent headaches GERD (gastroesophageal reflux disease) With history of esophageal stricture requiring dilatation. History of GI bleed History of rectal polyps Hyperlipidemia Hypertension Hypothyroidism IBS (irritable bowel syndrome) Ischemic cardiomyopathy Mitral valve prolapse Myasthenia gravis Questionable history of. Obstructive sleep apnea Ocular herpes zoster History of shingles to the left eye, on chronic antiviral therapy. Paroxysmal atrial fibrillation Peripheral neuropathy Rectal polyp Restless leg syndrome Shingles Solitary rectal ulcer syndrome Surgical History Yoan
[2019-12-12] MEDS: LACTATED RINGERS 1,000 ML 200 ML IV CONT (14:37)
[2019-12-12 14:41] LABS: Basophils Percent Auto 0.5 % (0.2-1.2); Eosinophils Absolute Auto 0.1 K/mm3 (0-0.3); Eosinophils Percent Auto 1.7 % (0-4.4); Hematocrit 27.9 % (37.0-47.0); Hemoglobin 8.9 g/dL (12.0-15.0); Immature Granulocyte Absolute 0.02 K/mm3 (0.00-0.031); Immature Granulocyte Percent A 0.5 % (0-0.5); Lymphocytes Percent Auto 19.9 % (18.3-44.2); Mean Corpuscular HGB Conc 31.9 g/dl (32-36); Mean Corpuscular Hemoglobin 32.7 pg (26-34); Mean Corpuscular Volume 102.6 fl (80-100); Mean Platelet Volume 9.9 fl (7.4-10.4); Monocytes Absolute Auto 0.4 K/mm3 (0.1-0.6); Monocytes Percent Auto 10.2 % (2.6-8.5); Neutrophils Absolute Auto 2.7 K/mm3 (1.3-6.7); Neutrophils Percent Auto 67.2 % (45.5-73.1); Platelet Count Result 232 k/mm3 (150-375); Red Blood Count 2.72 M/mm3 (4.2-5.4); Red Cell Distribution Width 12.6 % (11.5-14.5)
[2019-12-12 14:51] LABS: Lactic Acid Reflex 0.8 mmol/L (0.7-2.1)
[2019-12-12 14:52] LABS: Alanine Aminotransferase 15 U/L (4-35); Albumin Level 3.9 g/dL (3.5-5.1); Alkaline Phosphatase 68 U/L (38-126); Aspartate Amino Transferase 29 U/L (14-36); Bilirubin,Total 0.4 mg/dL (0.2-1.3); Blood Urea Nitrogen 26 mg/dL (7-17); Calcium 8.7 mg/dL (8.4-10.2); Carbon Dioxide 29 mmol/L (22-30); Chloride 101 mmol/L (98-107); Estimated CRCL calculation 19 ml/min; Estimated Glomerular Filt Rate 29; Glucose 105 mg/dL (65-105); Lipase 66 U/L (23-300); Sodium 138 mmol/L (137-145)
[2019-12-12 15:05] LABS: Add Urine Microscopic? YES; Appearance Urine Clear (Clear); Bacteria Urine 2+ /hpf; Bilirubin Urine Negative (Negative); Color Urine Yellow (Yellow); Glucose Urine UA Negative (Negative); Hyaline Casts Urine 20-29 /lpf; Ketones Urine Negative (Negative); Leukocyte Esterase Ur 1+ LEU/UL (Negative); Mucus Urine Rare /lpf; Nitrate Urine Negative (Negative); Protein Urine Negative (Negative); RBC Urine 0-2 /hpf (0-2); Specific Grav Ur 1.012 (1.001-1.035); Squamous Epithelial Cell Urine Few /hpf (Few); Urobilinogen Urine Negative mg/dL (<2.0)
[2019-12-12 15:08] LABS: Blood Urine Negative (Negative)
--- NOTE | 2019-12-12 15:13 | PC.NURSE ---
PT IN CT AT THIS TIME.
[2019-12-12] MEDS: HALOPERIDOL LACTATE 5 MG/ML VIAL 2.5 MG IV PUSH (15:23)
[2019-12-12] MEDS: LACTATED RINGERS 1,000 ML 999 ML IV CONT (15:28)
--- NOTE | 2019-12-12 18:00 | PC.NURSE ---
This patient, Dhara Harry, was admitted to Medical Room 250-. Patient/family oriented to hospital policies and general routines including ID bracelet, bed and alarms, visiting hours, pain management, procedures, bathroom and other care routines, personal items, smoking policy, room service/diet, and visiting hours. Valuables list has been completed. Information on how to activate the Rapid Response Team has been discussed. Patient/Family are encouraged to report perceived risks to care and to ask questions if they do not understand what they are told or what they should do.
[2019-12-12] MEDS: LACTATED RINGERS 1,000 ML 150 ML IV CONT (18:19)
[2019-12-12] MEDS: FAMOTIDINE 20 MG/2 ML VIAL IV PUSH (20:40)
[2019-12-12] MEDS: ACETAMINOPHEN 325 MG TABLET 650 MG PO (21:12)
--- NOTE | 2019-12-12 21:45 | PM.IMHP ---
H&P: HPI History of Present Illness Chief complaint: Abdominal pain and nausea. Narrative: Dhara Harry is an 79-year-old female with multiple medical problems including coronary artery disease, chronic kidney disease, congestive heart failure, paroxysmal atrial fibrillation, and several other comorbidities who presented to the emergency department earlier this afternoon for evaluation of abdominal pain and nausea. This will be her 13th visit to the emergency department for abdominal pain this year. She is also known to the hospitalist service and in fact I just admitted her to the hospital December 01, 2019 after she presented with complaints of chest pain. She was discovered to have rib fractures and multiple contusions consistent with a fall, however she did not remember falling. She was kept for 2 days, and brain MRI and carotid Doppler ultrasounds were both unremarkable. Echocardiogram showed improvement her ejection fraction at 50 to 55%. An EEG was also taken, however I am unable to locate those results at this time. In any regard, she continues to have abdominal pain on almost a daily basis. She describes diffuse abdominal discomfort, described as pressure and occasional aching in nature. At the direction of her primary care provider, she has been using a heating pad in taking Tylenol with some improvement. Unfortunately, the pain has been pretty constant today and thus she came in for evaluation. In addition to the abdominal pain, she has had mild nausea but no vomiting. She has also had loose stools, but goes on to say that this is not unusual for her. She does not know what precipitates the abdominal pain, and gives no significant aggravating factors. Food occasionally seems to make it a bit better. Given concerns for possible abdominal migraine and/or vascular issues, a CTA of the abdomen was ordered but was unable to be performed due to her GFR. On review of recent labs, it does look like her creatinine is a bit elevated from baseline, and she is being admitted for hydration in hopes to obtain a CTA tomorrow. At the time my evaluation she appears comfortable in bed, but rates her pain as 7/10. She is also complaining of being hungry, and is upset with her NPO status. Review of Systems Review of Systems: Narrative: Twelve systems were reviewed with pertinent positives and negatives as per HPI. Reports a stable weight. no fever, chills, or sweats. She complains that the room is cold, however. She frequently feels lightheaded when going from a seated to standing position, and this is unchanged. Given her history of falls, she was recently taken off of Eliquis. She has not had racing heart, chest pain, pleuritic pain, or shortness of breath. No blood or mucus in the stool. She denies dysuria. Except as documented, all other systems were reviewed and are negative. [facility] Past Medical History Medical History (Updated 12/12/19 @ 23:17 by Sunshine Bowman PA-C) Chronic anemia Chronic kidney disease, stage 3 Congestive heart failure Systolic and diastolic congestive heart failure Echo 01/14/2019: EF measured at 39%. September 2018 EF was 25%. Echo 12/02/2019 EF 50-55%. Grade 1 diastolic function. Coronary artery disease With multivessel surgical revascularization with PCI at [place] October 2017. Cardiac catheterization 10/17/2018-mild preserved intra-stent luminal diameter Current use of detention anticoagulation Depression with anxiety Detached retina Right-sided, x2. Frequent headaches GERD (gastroesophageal reflux disease) With history of esophageal stricture requiring dilatation. History of GI bleed History of rectal polyps Hyperlipidemia Hypertension Hypothyroidism TSH in November 2019 was a bit low, with normal T4. IBS (irritable bowel syndrome) Ischemic cardiomyopathy Mitral valve prolapse Myasthenia gravis Questionable history of. Obstructive sleep apnea Ocular herpes zoster History of shingles to the
[2019-12-13] MEDS: TRAZODONE HCL 50 MG TABLET 100 MG PO ×2 (00:45→20:50)
[2019-12-13] MEDS: SACUBITRIL/VALSARTAN 24-26 MG TABLET 1 TAB PO ×3 (00:46→20:50)
[2019-12-13] MEDS: LACTATED RINGERS 1,000 ML 150 ML IV CONT (00:47)
[2019-12-13 05:34] LABS: Hematocrit 26.1 % (37.0-47.0); Hemoglobin 8.5 g/dL (12.0-15.0); Mean Corpuscular HGB Conc 32.6 g/dl (32-36); Mean Corpuscular Hemoglobin 32.8 pg (26-34); Mean Corpuscular Volume 100.8 fl (80-100); Platelet Count Result 216 k/mm3 (150-375); Red Blood Count 2.59 M/mm3 (4.2-5.4); Red Cell Distribution Width 12.1 % (11.5-14.5); White Blood Count 3.4 K/mm3 (4.5-10.0)
[2019-12-13 05:54] LABS: Blood Urea Nitrogen 19 mg/dL (7-17); Calcium 8.7 mg/dL (8.4-10.2); Carbon Dioxide 27 mmol/L (22-30); Chloride 103 mmol/L (98-107); Estimated CRCL calculation 22 ml/min; Estimated Glomerular Filt Rate 39; Glucose 85 mg/dL (65-105); Potassium 3.8 mmol/L (3.4-5.0); Sodium 134 mmol/L (137-145)
[2019-12-13 06:00] VITALS: BP 144/57; PULSE 59; RESP 16; TEMP 36.2; O2SAT 98
[2019-12-13] MEDS: LEVOTHYROXINE SODIUM 125 MCG TABLET PO (06:10)
[2019-12-13] MEDS: SPIRONOLACTONE 25 MG TABLET PO (09:40)
[2019-12-13] MEDS: ATORVASTATIN 40 MG TABLET PO (09:40)
[2019-12-13] MEDS: FERROUS SULFATE 324 MG TABLET PO (09:40)
[2019-12-13] MEDS: ASCORBIC ACID 500 MG TABLET PO (09:40)
[2019-12-13] MEDS: VITAMIN B COMPLEX/VIT C CAPSULE 1 EACH PO (09:41)
[2019-12-13] MEDS: VALACYCLOVIR HCL 500 MG TABLET 1000 MG PO (09:41)
[2019-12-13] MEDS: CLOPIDOGREL BISULFATE 75 MG TABLET PO (09:41)
[2019-12-13] MEDS: CHOLECALCIFEROL 1,000 UNIT TABLET 5000 UNITS PO (09:41)
[2019-12-13] MEDS: FAMOTIDINE 20 MG TABLET PO ×2 (09:41→17:36)
[2019-12-13] MEDS: PANTOPRAZOLE 40 MG TABLET PO ×2 (09:41→17:36)
[2019-12-13] MEDS: FUROSEMIDE 40 MG TABLET PO (09:41)
[2019-12-13] MEDS: ASPIRIN 81 MG CHEWABLE TABLET PO (09:41)
[2019-12-13] MEDS: hydrALAZINE 10 MG TABLET PO ×3 (09:42→17:36)
[2019-12-13] MEDS: FAMOTIDINE 20 MG/2 ML VIAL IV PUSH (09:43)
[2019-12-13 09:45] VITALS: PULSE 68
[2019-12-13] MEDS: METOPROLOL SUCCINATE EXT REL 50 MG TABCR PO (09:45)
[2019-12-13 12:23] VITALS: BP 121/59; PULSE 76
[2019-12-13 14:00] VITALS: BP 138/68; PULSE 45; RESP 16; TEMP 37; O2SAT 97
--- NOTE | 2019-12-13 14:05 | PM.IMPN ---
Progress Note: A&P Assessment and Plan (1) Abdominal pain: Code(s): R10.9 - Unspecified abdominal pain Status: Acute Assessment and Plan: CTA abdomen today Home if negative and she continues to do well Perhaps her main issue is inadequate fluid intake (2) JOSÉ MIGUEL (acute kidney injury): Code(s): N17.9 - Acute kidney failure, unspecified Status: Acute Assessment and Plan: Creatinine improved from 1.7 to 1.3 overnight with gentle hydration (3) Ischemic cardiomyopathy: Code(s): I25.5 - Ischemic cardiomyopathy Status: Acute Assessment and Plan: Clinically stable Continue home regimen (4) Hypertension: Code(s): I10 - Essential (primary) hypertension Status: Acute Assessment and Plan: Continue home regimen (5) Chronic anemia: Code(s): D64.9 - Anemia, unspecified Status: Acute Assessment and Plan: Relatively stable (6) Chronic kidney disease, stage 3: Code(s): N18.3 - Chronic kidney disease, stage 3 (moderate) Status: Acute Assessment and Plan: At baseline Subjective Date/time seen: 12/13/19 14:05 Interval history: Admitted 12/11 with chronic, diffuse abdominal pain. Feels better today. Mild aching. Poorly localized. No aggravating or alleviating factors. Thinks she drinks enough fluid, but is unable to quantify. No cp, sob, abnormal bleeding, constipation, or dysruria. Review of Systems Review of Systems: All systems reviewed & are unremarkable except as noted in HPI and below Exam Narrative: Exam Narrative: HEENT: EOMI, PERRL, sclerae nonicteric, pharyngeal mucosa pink and intact NECK: No JVD CHEST: Clear to auscultation. Normal effort. HEART: NL S1/S2, regular, no murmur ABDOMEN: BS+, soft, nontender, no mass, no bruits EXTREMITIES: No cyanosis, edema, or clubbing NEUROLOGIC: CN intact and symmetric to inspection. MUSCULOSKELETAL: Tone and strength symmetric. PSYCH: Alert. Oriented to person, place, and time. Objective Data Vital Signs Vital Signs: Vital Signs - 24 hr 12/12/19 16:02 12/12/19 16:34 12/12/19 17:02 Temperature Pulse Rate 84 73 62 Respiratory Rate 18 18 19 Blood Pressure 173/88 H 185/91 H 157/91 H Pulse Oximetry 98 98 100 12/12/19 17:32 12/12/19 18:00 12/12/19 22:00 Temperature 97.2 F L 97.7 F Pulse Rate 70 55 L 56 L Respiratory Rate 16 16 16 Blood Pressure 157/91 H 168/74 H 160/73 H Pulse Oximetry 68 L 100 98 12/13/19 06:00 12/13/19 09:45 12/13/19 12:23 Temperature 97.1 F L Pulse Rate 59 L 68 76 Respiratory Rate 16 Blood Pressure 144/57 H 121/59 L Pulse Oximetry 98 Intake/Output Intake/Output: Intake & Output 12/10/19 12/11/19 12/12/19 12/13/19 23:59 23:59 23:59 23:59 Intake Total 1999 181 Output Total 1799 Balance 1999 10 Meds/Results Medications: Active Medications Generic Name Dose Route Start Last Admin Trade Name Freq PRN Reason Stop Dose Admin Acetaminophen 650 mg 12/12/19 19:28 12/12/19 21:12 Tylenol Tablet PO 650 mg Q6H PRN Administration Mild Pain (1-3) or Fever Albuterol 2 puff 12/12/19 23:21 Proventil Hfa INHALATION Q4-6H PRN Shortness Of Breath Or Wheezing Alprazolam 0.5 mg 12/12/19 23:21 Xanax PO TID PRN Anxiety Ascorbic Acid 500 mg 12/13/19 09:00 12/13/19 09:40 Vitamin C PO 500 mg DAILY JESSICA Administration Aspirin 81 mg 12/13/19 08:00 12/13/19 09:41 Aspirin Chewable PO 81 mg DAILY@0800 [facility] Administration Atorvastatin Calcium 40 mg 12/13/19 09:00 12/13/19 09:40 Lipitor PO 40 mg DAILY JESSICA Administration Clopidogrel Bisulfate 75 mg 12/13/19 09:00 12/13/19 09:41 Plavix PO 75 mg DAILY JESSICA Administration Famotidine 20 mg 12/12/19 21:00 12/13/19 09:43 Pepcid Iv IV PUSH 20 mg Q12HR JESSICA Administration Famotidine 20 mg 12/13/19 09:00 12/13/19 09:41 Pepcid PO 01/12/20 09:01 20 mg
[2019-12-13 15:52] LABS: Blood Urea Nitrogen 20 mg/dL (7-17); Calcium 8.8 mg/dL (8.4-10.2); Carbon Dioxide 30 mmol/L (22-30); Chloride 98 mmol/L (98-107); Estimated CRCL calculation 22 ml/min; Estimated Glomerular Filt Rate 39; Glucose 84 mg/dL (65-105); Sodium 136 mmol/L (137-145)
--- NOTE | 2019-12-13 16:34 | PC.NURSE ---
Patient to radiology for CTA via wheelchair with IV saline locked.
[2019-12-13] MEDS: LACTATED RINGERS 1,000 ML 50 ML IV CONT (20:53)
[2019-12-13 22:00] VITALS: BP 132/68; PULSE 72; RESP 16; TEMP 36.8; O2SAT 97
[2019-12-13] MEDS: ALPRAZOLAM 0.5 MG TABLET PO (22:18)
--- NOTE | 2019-12-14 03:02 | PC.NURSE ---
Daylight Savings Time For Daylight Savings Time Ending in the Fall - Clocks are moved back. For Daylight Savings Time Beginning in the Spring - Clocks are moved ahead. For [facility], the time of change occurs at 0200 hrs. Time is taken from the beverage server. This entry on the patient's chart recognizes the change in time reflected during documentation. Example: 2 entries for vital signs may be charted for 0200 hrs.
[2019-12-14 05:51] LABS: Basophils Percent Auto 0.2 % (0.2-1.2); Eosinophils Absolute Auto 0.1 K/mm3 (0-0.3); Eosinophils Percent Auto 1.5 % (0-4.4); Hematocrit 27.9 % (37.0-47.0); Immature Granulocyte Absolute 0.02 K/mm3 (0.00-0.031); Immature Granulocyte Percent A 0.4 % (0-0.5); Lymphocytes Absolute Auto 1.14 K/mm3 (0.9-3.2); Lymphocytes Percent Auto 24.9 % (18.3-44.2); Mean Corpuscular HGB Conc 32.3 g/dl (32-36); Mean Corpuscular Hemoglobin 32.8 pg (26-34); Mean Corpuscular Volume 101.8 fl (80-100); Monocytes Absolute Auto 0.5 K/mm3 (0.1-0.6); Monocytes Percent Auto 9.8 % (2.6-8.5); Neutrophils Absolute Auto 2.9 K/mm3 (1.3-6.7); Neutrophils Percent Auto 63.2 % (45.5-73.1); Platelet Count Result 231 k/mm3 (150-375); Red Blood Count 2.74 M/mm3 (4.2-5.4); Red Cell Distribution Width 12.6 % (11.5-14.5); White Blood Count 4.6 K/mm3 (4.5-10.0)
[2019-12-14] MEDS: LEVOTHYROXINE SODIUM 125 MCG TABLET PO (05:51)
[2019-12-14 06:00] VITALS: BP 141/62; PULSE 61; RESP 16; TEMP 36.6; O2SAT 97
[2019-12-14 06:01] LABS: Alanine Aminotransferase 13 U/L (4-35); Albumin Level 3.4 g/dL (3.5-5.1); Alkaline Phosphatase 63 U/L (38-126); Aspartate Amino Transferase 27 U/L (14-36); Bilirubin,Total 0.5 mg/dL (0.2-1.3); Blood Urea Nitrogen 16 mg/dL (7-17); CRP < 0.5 mg/dL (<1.0); Calcium 8.6 mg/dL (8.4-10.2); Carbon Dioxide 32 mmol/L (22-30); Chloride 99 mmol/L (98-107); Estimated CRCL calculation 20 ml/min; Estimated Glomerular Filt Rate 36; Glucose 82 mg/dL (65-105); Potassium 3.9 mmol/L (3.4-5.0); Sodium 136 mmol/L (137-145)
[2019-12-14] MEDS: SACUBITRIL/VALSARTAN 24-26 MG TABLET 1 TAB PO (09:01)
[2019-12-14] MEDS: ASCORBIC ACID 500 MG TABLET PO (09:01)
[2019-12-14] MEDS: FUROSEMIDE 40 MG TABLET PO (09:01)
[2019-12-14] MEDS: CLOPIDOGREL BISULFATE 75 MG TABLET PO (09:01)
[2019-12-14] MEDS: ASPIRIN 81 MG CHEWABLE TABLET PO (09:02)
[2019-12-14] MEDS: VITAMIN B COMPLEX/VIT C CAPSULE 1 EACH PO (09:02)
[2019-12-14] MEDS: PANTOPRAZOLE 40 MG TABLET PO (09:02)
[2019-12-14] MEDS: SPIRONOLACTONE 25 MG TABLET PO (09:02)
[2019-12-14] MEDS: FERROUS SULFATE 324 MG TABLET PO (09:02)
[2019-12-14] MEDS: hydrALAZINE 10 MG TABLET PO ×2 (09:02→12:12)
[2019-12-14] MEDS: ATORVASTATIN 40 MG TABLET PO (09:02)
[2019-12-14] MEDS: FAMOTIDINE 20 MG TABLET PO (09:02)
[2019-12-14] MEDS: VALACYCLOVIR HCL 500 MG TABLET 1000 MG PO (09:02)
[2019-12-14] MEDS: CHOLECALCIFEROL 1,000 UNIT TABLET 5000 UNITS PO (09:02)
[2019-12-14 09:03] VITALS: PULSE 80
[2019-12-14] MEDS: METOPROLOL SUCCINATE EXT REL 50 MG TABCR PO (09:03)
[2019-12-14] MEDS: ACETAMINOPHEN 325 MG TABLET 650 MG PO (09:11)
[2019-12-14 12:12] VITALS: BP 119/72
--- NOTE | 2019-12-14 12:13 | PC.NURSE ---
Patient getting up out of bed without assistance and attempting to turn off bed alarm. Instructed patient importance of bed alarm and to not turn off alarm by herself. Patient verbalized understanding.
[2019-12-14 14:00] VITALS: BP 125/87; PULSE 77; RESP 16; TEMP 36.5; O2SAT 98
--- NOTE | 2019-12-14 15:32 | PM.DS ---
DS: Diagnosis Admitting Diagnosis Admitting Diagnosis: Unspecified abdominal pain Discharge Diagnosis (1) Abdominal pain: Code(s): R10.9 - Unspecified abdominal pain Status: Acute Assessment and Plan: CTA abdomen with diverticulosis Discussed adequate fluid intake (2) JOSÉ MIGUEL (acute kidney injury): Code(s): N17.9 - Acute kidney failure, unspecified Status: Acute Assessment and Plan: Creatinine improved from 1.7 to 1.3 overnight with gentle hydration, 1.4 AM after CTA (3) Ischemic cardiomyopathy: Code(s): I25.5 - Ischemic cardiomyopathy Status: Acute Assessment and Plan: Clinically stable Continue home regimen (4) Hypertension: Code(s): I10 - Essential (primary) hypertension Status: Acute Assessment and Plan: Continue home regimen (5) Chronic anemia: Code(s): D64.9 - Anemia, unspecified Status: Acute Assessment and Plan: Relatively stable (6) Chronic kidney disease, stage 3: Code(s): N18.3 - Chronic kidney disease, stage 3 (moderate) Status: Acute Assessment and Plan: At baseline DS: Summary Hospital Course Reason for hospitalization: abdominal pain Hospital Course: Admitted with generalized abdomanal pain. Lab and CTA abdomen were unremarkable, except for diverticulosis. Pain resolved. Urine grew kelbsiella. Levaquin 250mg PO x1 was given in the hospital with f/u 4 days of nitrofurantoin. Tolerated diet. Patient wished to go home. Time Spent with Patient Time attestation: Total time spent providing and/or coordinating discharge services: 33 min Exam Narrative: Exam Narrative: HEENT: EOMI, PERRL, sclerae nonicteric, pharyngeal mucosa pink and intact NECK: No JVD CHEST: Clear to auscultation. Normal effort. HEART: NL S1/S2, regular, no murmur ABDOMEN: BS+, soft, nontender, no mass, no bruits EXTREMITIES: No cyanosis, edema, or clubbing NEUROLOGIC: CN intact and symmetric to inspection. MUSCULOSKELETAL: Tone and strength symmetric. PSYCH: Alert. Oriented to person, place, and time. DS: Data Data Completed and Pending Labs on day of discharge: Labs from last 24 hours 12/14/19 12/14/19 12/13/19 05:04 05:04 15:29 WBC 4.6 RBC 2.74 L Hgb 9.0 L Hct 27.9 L MCV 101.8 H MCH 32.8 MCHC 32.3 RDW 12.6 Plt Count 231 MPV 10.0 Immature Gran % (Auto) 0.4 Neut % (Auto) 63.2 Lymph % (Auto) 24.9 [place] % (Auto) 9.8 H Eos % (Auto) 1.5 Baso % (Auto) 0.2 Lymph # (Auto) 1.14 [place] # (Auto) 0.5 Eos # (Auto) 0.1 Baso # (Auto) 0.0 Abs Immat Gran (auto) 0.02 Absolute Neuts (auto) 2.9 Absolute Nucleated RBC 0.0 Nucleated RBC % 0.0 Sodium 136 L 136 L Potassium 3.9 4.0 Chloride 99 98 Carbon Dioxide 32 H 30 BUN 16 20 H Creatinine 1.40 H 1.30 H Estim Creat Clear Calc 20 22 Estimated GFR 36 L 39 L Glucose 82 84 Calcium 8.6 8.8 Total Bilirubin 0.5 AST 27 ALT 13 Alkaline Phosphatase 63 C-Reactive Protein < 0.5 Total Protein 6.0 L Albumin 3.4 L Discharge Plan Discharge Discharging Clinician: Darrell Abreu Patient Disposition: Home, Self-Care Activity: as tolerated Diet: low sodium Patient Instructions: Antibiotic Form, Heart Failure (DC), Diverticulosis (DC), Urinary Tract Infection in Women (DC), Pain Management (DC), Fall Prevention (DC) Stand Alone Forms: General Discharge Information Follow-up/Referrals: Heri Tavarez MD [Primary Care Provider] - 1 Week Discharge Medications: New nitrofurantoin monohyd/m-cryst [Macrobid] 100 mg capsule 100 mg PO Q12H 5 Days Qty: 8 RF: 0 Continued B Complex Plus Vitamin C 150 mg PO DAILY RF: 0 furosemide 40 mg tablet 40 mg PO DAILY RF: 0 hydralazine 10 mg tablet 10 mg PO TID RF: 0 metoprolol succinate 50 mg tablet extended release 24 hr 50 mg PO DAILY RF: 0 jhon
== END 2019-12-14 16:13 | disposition home health service (06) ==
LOC: ANHED 15:50 → ANH2MED 18:51
PROVIDERS: Physician Assistant; Admitting Provider Family Medicine; Emergency Provider Emergency Medicine; PCP Family Medicine; Visit Provider Internal Medicine
DX: R10.9 Unspecified abdominal pain (principal); N17.9 Acute kidney failure, unspecified; I25.5 Ischemic cardiomyopathy; I13.0 Hypertensive heart and chronic kidney disease with heart failure and stage 1 through stage 4 chronic kidney disease, or unspecified chronic kidney disease; N18.3 Chronic kidney disease, stage 3 (moderate); I50.42 Chronic combined systolic (congestive) and diastolic (congestive) heart failure; R82.79 Other abnormal findings on microbiological examination of urine; B96.1 Klebsiella pneumoniae [K. pneumoniae] as the cause of diseases classified elsewhere; K57.30 Diverticulosis of large intestine without perforation or abscess without bleeding; D64.9 Anemia, unspecified; E46 Unspecified protein-calorie malnutrition; Z68.1 Body mass index [BMI] 19.9 or less, adult; I25.10 Atherosclerotic heart disease of native coronary artery without angina pectoris; I48.0 Paroxysmal atrial fibrillation; E03.9 Hypothyroidism, unspecified; E78.5 Hyperlipidemia, unspecified; G62.9 Polyneuropathy, unspecified; K21.9 Gastro-esophageal reflux disease without esophagitis; G47.33 Obstructive sleep apnea (adult) (pediatric); F41.8 Other specified anxiety disorders; Z79.82 Long term (current) use of aspirin; Z79.899 Other long term (current) drug therapy; Z88.0 Allergy status to penicillin; Z91.81 History of falling; Z96.643 Presence of artificial hip joint, bilateral; Z96.653 Presence of artificial knee joint, bilateral
CPT/HCPCS: 36415; 74174; 80048; 80053; 81001; 83605; 83690; 83735; 85025; 85027; 86140; 87077; 87086; 87088; 87186; 96361; 96374; 96375; 96376; 99285; A9270; G0378; J1630; J7120; Q9967

== ENCOUNTER 2020-03-20 08:55 | Emergency (ER) | payer MEDICARE, SELFPAY ==
--- NOTE | ~2020-03-20 | CT_ITS ---
EXAMINATION: CT abdomen pelvis wo con DATE: 03/20/2020 12:04 INDICATION: Abdominal pain TECHNIQUE: Computed tomography (CT) of the abdomen and pelvis was performed without intravenous contr ast. The dose-length product (DLP) was 240.37 mGy-cm. Automated exposure control and iterative recons truction technique were employed. COMPARISON: 12/13/2019 FINDINGS: Minimal dependent atelectasis is present in the lung bases. The heart size is normal. Calci fied coronary artery atherosclerosis is noted. The gallbladder is surgically absent. There is chronic dilatation of the common bile duct up to 1.6 cm without significant change. The liver, pancreas, and adrenal glands are normal. Punctate calcifications in an otherwise normal spleen likely represent he aled granulomatous disease. There is a 1 mm nonobstructing stone of the right kidney lower pole. Simp le and hemorrhagic cysts of the kidneys measure up to 1.7 cm on the left. There is calcified atherosc lerosis of the aorta and many of the other arteries. No pathologically enlarged abdominal or pelvic l ymph nodes are identified. Colonic diverticulosis is present without evidence of diverticulitis. Ther e is no free intraperitoneal gas or evidence of bowel obstruction. Phleboliths are noted in the pelvi s. There are changes of bilateral total hip arthroplasty. A benign bone island is again noted in the left ilium. There is severe lumbar spondylosis. IMPRESSION: 1. No CT correlate for the patient's symptoms. 2. Nonobstructing right nephrolithiasis. Reviewed, dictated and finalized at location A.
[2020-03-20 09:09] VITALS: BP 125/57; PULSE 90; RESP 18; TEMP 36.4; O2SAT 100
[2020-03-20 09:26] VITALS: BP 113/72; BP 114/59; PULSE 66; PULSE 77
[2020-03-20 09:28] VITALS: BP 96/71; PULSE 90
--- NOTE | 2020-03-20 09:52 | ED.ABDPAIN ---
HPI - Abdominal Pain General Chief Complaint: Urogenital-Female Stated Complaint: Urinary Symptoms Time Seen by Provider: 03/20/20 09:37 Source: patient Mode of arrival: ambulatory Limitations: no limitations History of Present Illness HPI narrative: This patient is an 79 year old female who presents to ER for evaluation of frequent urination and loose stools. She states last night she had to get up during the night multiple times to urinate. She has increased urgency as well with lower abdominal pain and lower back pain. She has no fever or chill. She has not nausea or vomiting. She also notes she has intermittent loose stools. No history or recent antibiotics use. Related Data Home Medications Medication Instructions Recorded Confirmed B Complex Plus Vitamin C 150 mg PO DAILY 09/01/19 12/12/19 Entresto 1 tablet PO Q12H 09/01/19 12/12/19 albuterol sulfate 2 puff INHALATION Q4-6H PRN 09/01/19 12/12/19 alprazolam 0.5 mg PO TID PRN 09/01/19 12/12/19 ascorbic acid (vitamin C) [Vitamin 500 mg PO DAILY 09/01/19 12/12/19 C With Debora Hips] cholecalciferol (vitamin D3) 5,000 unit PO DAILY 09/01/19 12/12/19 clopidogrel 75 mg PO DAILY 09/01/19 12/12/19 furosemide 40 mg PO DAILY 09/01/19 12/12/19 hydralazine 10 mg PO TID 09/01/19 12/12/19 levothyroxine 125 mcg PO DAILY 09/01/19 12/12/19 metoprolol succinate 50 mg PO DAILY 09/01/19 12/12/19 nitroglycerin 0.4 mg SUBLINGUAL Q5M PRN 09/01/19 12/12/19 pantoprazole 40 mg PO DAILY 09/01/19 12/12/19 trazodone 100 mg PO HS 09/01/19 12/12/19 valacyclovir 1,000 mg PO DAILY 09/01/19 12/12/19 ferrous sulfate 325 mg PO DAILY 09/06/19 12/12/19 prednisolone acetate 1 % RIGHTEYE DAILY 09/06/19 12/12/19 acetaminophen 500 mg PO Q4-6H PRN 12/01/19 12/12/19 spironolactone 25 mg PO DAILY 12/01/19 12/12/19 aspirin 81 mg PO DAILY 12/12/19 12/12/19 atorvastatin 40 mg PO DAILY 12/12/19 12/12/19 famotidine BID 03/20/20 gabapentin 600 DAILY 03/20/20 oxybutynin chloride mg PO DAILY 03/20/20 Allergies Allergy/AdvReac Type Severity Reaction Status Date / Time Penicillins Allergy Unknown Rash Verified 03/20/20 09:16 Review of Systems Review of Systems: All systems reviewed & are unremarkable except as noted in HPI and below Constitutional: Constitutional: Denies chills, Denies fever(s) and Denies weakness Gastrointestinal: Gastrointestinal: Reports abdominal pain, Reports diarrhea and Denies vomiting Genitourinary: Genitourinary: Reports nocturia and Denies urinary incontinence Musculoskeletal: Musculoskeletal: Reports back pain PMFSH Past Medical History Medical History Chronic anemia Chronic kidney disease, stage 3 Congestive heart failure Systolic and diastolic congestive heart failure Echo 01/14/2019: EF measured at 39%. September 2018 EF was 25%. Echo 12/02/2019 EF 50-55%. Grade 1 diastolic function. Coronary artery disease With multivessel surgical revascularization with PCI at [place] October 2017. Cardiac catheterization 10/17/2018-mild preserved intra-stent luminal diameter Current use of skilled nursing anticoagulation Depression with anxiety Detached retina Right-sided, x2. Frequent headaches GERD (gastroesophageal reflux disease) With history of esophageal stricture requiring dilatation. History of GI bleed History of rectal polyps Hyperlipidemia Hypertension Hypothyroidism TSH in November 2019 was a bit low, with normal T4. IBS (irritable bowel syndrome) Ischemic cardiomyopathy Mitral valve prolapse Myasthenia gravis Questionable history of. Obstructive sleep apnea Ocular herpes zoster History of shingles to the left eye, on chronic antiviral therapy. Paroxysmal atrial fibrillation No longer on long-term anticoagulation due to history of falls. Peripheral neuropathy Rectal polyp Restless leg syndrome Shingles Solitary rectal ulcer syndrome Surgical History Surgical History (Reviewed 03/20/20 @ 09:55 by Alex
[2020-03-20 09:55] LABS: Basophils Percent Auto 0.2 % (0.2-1.2); Eosinophils Absolute Auto 0.1 K/mm3 (0-0.3); Eosinophils Percent Auto 0.8 % (0-4.4); Hematocrit 28.9 % (37.0-47.0); Hemoglobin 9.3 g/dL (12.0-15.0); Immature Granulocyte Absolute 0.03 K/mm3 (0.00-0.031); Immature Granulocyte Percent A 0.5 % (0-0.5); Lymphocytes Absolute Auto 0.79 K/mm3 (0.9-3.2); Lymphocytes Percent Auto 12.3 % (18.3-44.2); Mean Corpuscular HGB Conc 32.2 g/dl (32-36); Mean Corpuscular Hemoglobin 34.6 pg (26-34); Mean Corpuscular Volume 107.4 fl (80-100); Mean Platelet Volume 9.8 fl (7.4-10.4); Monocytes Absolute Auto 0.8 K/mm3 (0.1-0.6); Monocytes Percent Auto 11.6 % (2.6-8.5); Neutrophils Absolute Auto 4.8 K/mm3 (1.3-6.7); Neutrophils Percent Auto 74.6 % (45.5-73.1); Platelet Count Result 228 k/mm3 (150-375); Red Blood Count 2.69 M/mm3 (4.2-5.4); Red Cell Distribution Width 13.2 % (11.5-14.5); White Blood Count 6.4 K/mm3 (4.5-10.0)
[2020-03-20 10:07] LABS: Alanine Aminotransferase 14 U/L (4-35); Alkaline Phosphatase 103 U/L (38-126); Aspartate Amino Transferase 32 U/L (14-36); Bilirubin,Total 0.2 mg/dL (0.2-1.3); Blood Urea Nitrogen 49 mg/dL (7-17); Calcium 8.5 mg/dL (8.4-10.2); Carbon Dioxide 31 mmol/L (22-30); Chloride 95 mmol/L (98-107); Estimated CRCL calculation 17 ml/min; Estimated Glomerular Filt Rate 27; Glucose 92 mg/dL (65-105); Lipase 107 U/L (23-300); Potassium 4.2 mmol/L (3.4-5.0); Sodium 134 mmol/L (137-145)
[2020-03-20 10:32] LABS: Add Urine Microscopic? YES; Appearance Urine Cloudy (Clear); Bacteria Urine 2+ /hpf; Bilirubin Urine Negative (Negative); Blood Urine 1+ (Negative); Color Urine Yellow (Yellow); Glucose Urine UA Negative (Negative); Ketones Urine Negative (Negative); Leukocyte Esterase Ur 3+ LEU/UL (Negative); Nitrate Urine Negative (Negative); Protein Urine Negative (Negative); RBC Urine 21-50 /hpf (0-2); Specific Grav Ur 1.008 (1.001-1.035); Squamous Epithelial Cell Urine Rare /hpf (Few); Urobilinogen Urine Negative mg/dL (<2.0); WBC Urine >75 /hpf
[2020-03-20] MEDS: LACTATED RINGERS 1,000 ML 999 ML IV CONT (11:37)
[2020-03-20 13:08] VITALS: BP 132/58; PULSE 64; RESP 16; O2SAT 99
== END 2020-03-20 13:31 | disposition home or self-care (01) ==
PROVIDERS: Emergency Provider General Practice; PCP Family Medicine
DX: N39.0 Urinary tract infection, site not specified (principal); I13.0 Hypertensive heart and chronic kidney disease with heart failure and stage 1 through stage 4 chronic kidney disease, or unspecified chronic kidney disease; N18.3 Chronic kidney disease, stage 3 (moderate); I50.40 Unspecified combined systolic (congestive) and diastolic (congestive) heart failure; I25.10 Atherosclerotic heart disease of native coronary artery without angina pectoris; K21.9 Gastro-esophageal reflux disease without esophagitis; E78.5 Hyperlipidemia, unspecified; K58.9 Irritable bowel syndrome, unspecified; I25.5 Ischemic cardiomyopathy; I34.1 Nonrheumatic mitral (valve) prolapse; G70.00 Myasthenia gravis without (acute) exacerbation; G47.33 Obstructive sleep apnea (adult) (pediatric); I48.0 Paroxysmal atrial fibrillation; Z79.01 Long term (current) use of anticoagulants; G62.9 Polyneuropathy, unspecified; G25.81 Restless legs syndrome; Z96.643 Presence of artificial hip joint, bilateral; Z96.653 Presence of artificial knee joint, bilateral; Z98.42 Cataract extraction status, left eye; Z98.41 Cataract extraction status, right eye
CPT/HCPCS: 36415; 74176; 80053; 81001; 83690; 85025; 87077; 87086; 87088; 87186; 96365; 99284; J0696; J7120

== ENCOUNTER → 2020-04-27 10:28 | Outpatient (CLI) | payer MEDICARE, SELFPAY ==
--- NOTE | ~2020-04-27 | MM_ITS ---
EXAMINATION: MM screening rik BI w tram HISTORY: Screening mammogram TECHNIQUE: Craniocaudal and mediolateral oblique 3-D tomosynthesis images were obtained and synthetic 2-D images were generated. CAD analysis was submitted and interpreted. COMPARISON: Comparison to multiple prior studies sequentially, with oldest reviewed study dated 01/29. BREAST PARENCHYMAL COMPOSITION: The breasts are heterogeneously dense, which may obscure small masses . FINDINGS: There is no evidence of suspicious mass, calcification, or architectural distortion to sugg est malignancy in either breast. There has been no suspicious interval change. IMPRESSION: 1. No mammographic evidence of malignancy. 2. Recommend routine screening mammography in one year. BI-RADS Category 1: Negative Reviewed, dictated and finalized at location A.
== END ==
PROVIDERS: PCP Family Medicine; Visit Provider Family Medicine
DX: Z12.31 Encounter for screening mammogram for malignant neoplasm of breast (principal)
CPT/HCPCS: 77063; 77067

== ENCOUNTER 2020-05-12 07:17 | Outpatient (CLI) | payer MEDICARE, SELFPAY ==
--- NOTE | ~2020-05-12 | MR_ITS ---
EXAMINATION: MR MRCP wo con/w 3D wo ind pp DATE: 05/12/2020 10:52 INDICATION: Biliary dilatation TECHNIQUE: Magnetic resonance imaging (MRI) of the abdomen was performed without intravenous contrast . Sequences included coronal T2-weighted SS-FSE ARC, coronal T2-weighted FS SS-FSE, coronal T2-weight ed 2D FS FIESTA, Water:Coronal LAVA-Flex, sagittal T2-weighted SS-FSE ARC, axial SSFSE ARC, axial 3D DualEcho, axial DWI B=600, axial T1-weighted LAVA, FAT:Coronal LAVA-Flex, and coronal in and opposed phase LAVA-Flex. Thick-slab T2-weighted FRFSE-XL images were obtained for magnetic resonance cholangi opancreatography (MRCP). Maximum intensity projection 3-D reconstructions of the volumetric data were created by the technologist. COMPARISON: Multiple prior CTs, most recent of which is dated 03/20/2020 FINDINGS: ABDOMEN MRI: Within the limitations of noncontrast examination, the liver, spleen, and adrenal glands are normal. There is mild atrophy of the pancreas. There are multiple simple cysts of the kidneys, t he largest of which measures 1.6 cm on the left. A few of the cysts demonstrate a small amount of int ernal hemorrhage. 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 The gallbladder is xavier rgically absent. There are no pathologically enlarged abdominal lymph nodes. No dilated loops of lucy l are evident. ABDOMEN MRCP: The dilated common bile duct measures up to 1.6 cm. There is mild intrahepatic biliary dilatation as well. No common bile duct stone or stricture are identified. The pancreatic duct is nor mal in course and caliber. IMPRESSION: 1. Intrahepatic and extrahepatic biliary dilatation without stone or stricture identified, likely due to post cholecystectomy state. Reviewed, dictated and finalized at location A.
[2020-05-12 08:22] LABS: Estimated Glomerular Filt Rate 24
== END 2020-05-12 07:18 | disposition home or self-care (01) ==
PROVIDERS: PCP Family Medicine; Visit Provider Internal Medicine Gastroenterology
DX: R93.2 Abnormal findings on diagnostic imaging of liver and biliary tract (principal)
CPT/HCPCS: 36415; 74181; 76376

== ENCOUNTER 2020-05-16 13:09 | Emergency (ER) | payer MEDICARE, SELFPAY ==
--- NOTE | ~2020-05-16 | XR_ITS ---
EXAMINATION: XR chest 2V DATE: 05/16/2020 13:42 INDICATION: Chest pain TECHNIQUE: PA and lateral views of the chest were obtained. COMPARISON: Chest radiograph dated 12/01/2019 FINDINGS: Hyperexpansion of the lungs. No focal airspace opacities, pulmonary edema, pleural effusion or pneumo thorax. The cardiomediastinal silhouette is within normal limits. Coronary artery stenting. Atheroscl erotic aorta. Severe thoracic spondylosis with mild anterior wedging of a couple mid thoracic vertebr al bodies. Change of likely bilateral distal clavicle resections. 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 IMPRESSION: 1. Hyperexpansion lungs suggestive but not diagnostic of COPD. Reviewed, dictated and finalized at location A.
[2020-05-16 13:09] VITALS: BP 129/89; PULSE 64; RESP 18; TEMP 36.2; O2SAT 98
--- NOTE | 2020-05-16 13:12 | ECG_ITS ---
Measurements Intervals [place] Rate: 61 P: 80 [place]: 149 QRS: -31 QRSD: 101 T: 40 QT: 428 QTc: 434 Interpretive Statements SINUS RHYTHM LEFT AXIS DEVIATION LOW QRS VOLTAGE IN LIMB LEADS ANTEROSEPTAL INFARCT, AGE INDETERMINATE ABNORMAL ECG Electronically Signed On 05-16-2020 15:03:45 CDT by Marlon Joe D.O.
[2020-05-16 13:38] LABS: Basophils Percent Auto 0.4 % (0.2-1.2); Eosinophils Percent Auto 0.4 % (0-4.4); Hematocrit 29.7 % (37.0-47.0); Hemoglobin 9.6 g/dL (12.0-15.0); Immature Granulocyte Absolute 0.03 K/mm3 (0.00-0.031); Immature Granulocyte Percent A 0.5 % (0-0.5); Lymphocytes Absolute Auto 0.92 K/mm3 (0.9-3.2); Lymphocytes Percent Auto 16.8 % (18.3-44.2); Mean Corpuscular HGB Conc 32.3 g/dl (32-36); Mean Corpuscular Hemoglobin 32.9 pg (26-34); Mean Corpuscular Volume 101.7 fl (80-100); Mean Platelet Volume 9.5 fl (7.4-10.4); Monocytes Absolute Auto 0.6 K/mm3 (0.1-0.6); Monocytes Percent Auto 11.7 % (2.6-8.5); Neutrophils Absolute Auto 3.8 K/mm3 (1.3-6.7); Neutrophils Percent Auto 70.2 % (45.5-73.1); Platelet Count Result 233 k/mm3 (150-375); Red Blood Count 2.92 M/mm3 (4.2-5.4); Red Cell Distribution Width 11.1 % (11.5-14.5); White Blood Count 5.5 K/mm3 (4.5-10.0)
[2020-05-16 13:48] LABS: Prothrombin Time 12.4 Seconds (11.1-14.7)
[2020-05-16 13:49] LABS: Partial Thromboplastin Time 25.5 SECONDS (22.3-36.8)
[2020-05-16 13:51] LABS: Anion Gap 11 mmol/L (8-16); Blood Urea Nitrogen 32 mg/dL (7-17); Calcium 8.8 mg/dL (8.4-10.2); Carbon Dioxide 26 mmol/L (22-30); Chloride 94 mmol/L (98-107); Estimated CRCL calculation 20 ml/min; Estimated Glomerular Filt Rate 33; Glucose 93 mg/dL (65-105); Potassium 4.3 mmol/L (3.4-5.0); Sodium 131 mmol/L (137-145)
[2020-05-16 14:03] LABS: Troponin I < 0.012 ng/mL (0.000-0.034)
[2020-05-16] MEDS: FAMOTIDINE 20 MG/2 ML VIAL IV PUSH (14:33)
[2020-05-16] MEDS: SODIUM CHLORIDE 0.9% IV 500 ML 999 ML IV CONT (14:34)
[2020-05-16 14:39] LABS: Add Urine Microscopic? YES; Appearance Urine Cloudy (Clear); Bacteria Urine Trace /hpf; Bilirubin Urine Negative (Negative); Budding Yeast Urine Present /hpf; Color Urine Yellow (Yellow); Glucose Urine UA Negative (Negative); Ketones Urine Negative (Negative); Leukocyte Esterase Ur 2+ LEU/UL (Negative); Mucus Urine Rare /lpf; Nitrate Urine Negative (Negative); Protein Urine Negative (Negative); Specific Grav Ur 1.014 (1.001-1.035); Urobilinogen Urine Negative mg/dL (<2.0); WBC Urine >75 /hpf
[2020-05-16 14:40] LABS: Blood Urine Negative (Negative)
--- NOTE | 2020-05-16 14:54 | ED.GENADULT ---
HPI - General Adult General Chief complaint: Chest Pain Stated complaint: CP since yesterday Time Seen by Provider: 05/16/20 14:09 Source: patient Mode of arrival: ambulatory Limitations: no limitations History of Present Illness HPI narrative: Patient is an 79-year-old female who presents with 3 days duration of chest pain radiating from the chest down to the pelvis consistent with her chronic chest and abdominal discomfort denies any fever chills nausea vomiting URI symptoms or dyspnea has not been seen for this complaint presents per private vehicle in no distress has been compliant with her medications. Symptoms worsen with activity and movement Related Data Home Medications Medication Instructions Recorded Confirmed B Complex Plus Vitamin C 150 mg PO DAILY 09/01/19 12/12/19 Entresto 1 tablet PO Q12H 09/01/19 12/12/19 albuterol sulfate 2 puff INHALATION Q4-6H PRN 09/01/19 12/12/19 alprazolam 0.5 mg PO TID PRN 09/01/19 12/12/19 ascorbic acid (vitamin C) [Vitamin 500 mg PO DAILY 09/01/19 12/12/19 C With Debora Hips] cholecalciferol (vitamin D3) 5,000 unit PO DAILY 09/01/19 12/12/19 clopidogrel 75 mg PO DAILY 09/01/19 12/12/19 furosemide 40 mg PO DAILY 09/01/19 12/12/19 hydralazine 10 mg PO TID 09/01/19 12/12/19 levothyroxine 125 mcg PO DAILY 09/01/19 12/12/19 metoprolol succinate 50 mg PO DAILY 09/01/19 12/12/19 nitroglycerin 0.4 mg SUBLINGUAL Q5M PRN 09/01/19 12/12/19 pantoprazole 40 mg PO DAILY 09/01/19 12/12/19 trazodone 100 mg PO HS 09/01/19 12/12/19 valacyclovir 1,000 mg PO DAILY 09/01/19 12/12/19 ferrous sulfate 325 mg PO DAILY 09/06/19 12/12/19 prednisolone acetate 1 % RIGHTEYE DAILY 09/06/19 12/12/19 acetaminophen 500 mg PO Q4-6H PRN 12/01/19 12/12/19 spironolactone 25 mg PO DAILY 12/01/19 12/12/19 aspirin 81 mg PO DAILY 12/12/19 12/12/19 atorvastatin 40 mg PO DAILY 12/12/19 12/12/19 famotidine BID 03/20/20 gabapentin 600 DAILY 03/20/20 oxybutynin chloride mg PO DAILY 03/20/20 Allergies Allergy/AdvReac Type Severity Reaction Status Date / Time Penicillins Allergy Unknown Rash Verified 03/20/20 09:16 Review of Systems Review of Systems: All systems reviewed & are unremarkable except as noted in HPI and below PMFSH Past Medical History Medical History Chronic anemia Chronic kidney disease, stage 3 Congestive heart failure Systolic and diastolic congestive heart failure Echo 01/14/2019: EF measured at 39%. September 2018 EF was 25%. Echo 12/02/2019 EF 50-55%. Grade 1 diastolic function. Coronary artery disease With multivessel surgical revascularization with PCI at [place] October 2017. 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 Frequent headaches GERD (gastroesophageal reflux disease) With history of esophageal stricture requiring dilatation. History of GI bleed History of rectal polyps Hyperlipidemia Hypertension Hypothyroidism TSH in November 2019 was a bit low, with normal T4. IBS (irritable bowel syndrome) Ischemic cardiomyopathy Mitral valve prolapse Myasthenia gravis Questionable history of. Obstructive sleep apnea Ocular herpes zoster History of shingles to the left eye, on chronic antiviral therapy. Paroxysmal atrial fibrillation No longer on long-term anticoagulation due to history of falls. Peripheral neuropathy Rectal polyp Restless leg syndrome Shingles Solitary rectal ulcer syndrome Surgical History Surgical History Status post appendectomy Status post bilateral hip replacements Status post bilateral knee replacements Status post breast biopsy Bilateral with benign histology. Status post carpal tunnel release Status post cataract extraction Bilateral. Status post cholecystectomy Status post laminectomy Lumbar spine. Status po
[2020-05-16 15:40] VITALS: BP 156/82; PULSE 87; RESP 20; O2SAT 99
== END 2020-05-16 15:42 | disposition home or self-care (01) ==
PROVIDERS: Emergency Medicine Emergency Medical Services; Emergency Provider Emergency Medicine; PCP Family Medicine
DX: N39.0 Urinary tract infection, site not specified (principal); R07.9 Chest pain, unspecified; R10.9 Unspecified abdominal pain; G89.29 Other chronic pain; I13.0 Hypertensive heart and chronic kidney disease with heart failure and stage 1 through stage 4 chronic kidney disease, or unspecified chronic kidney disease; N18.3 Chronic kidney disease, stage 3 (moderate); I50.40 Unspecified combined systolic (congestive) and diastolic (congestive) heart failure; I25.10 Atherosclerotic heart disease of native coronary artery without angina pectoris; K21.9 Gastro-esophageal reflux disease without esophagitis; E78.5 Hyperlipidemia, unspecified; K58.9 Irritable bowel syndrome, unspecified; I25.2 Old myocardial infarction; I34.1 Nonrheumatic mitral (valve) prolapse; G47.33 Obstructive sleep apnea (adult) (pediatric); I48.0 Paroxysmal atrial fibrillation; Z79.01 Long term (current) use of anticoagulants; G62.9 Polyneuropathy, unspecified; G25.81 Restless legs syndrome; Z96.643 Presence of artificial hip joint, bilateral; Z96.653 Presence of artificial knee joint, bilateral; Z98.42 Cataract extraction status, left eye; Z98.41 Cataract extraction status, right eye; Z79.82 Long term (current) use of aspirin; Z87.19 Personal history of other diseases of the digestive system; E03.9 Hypothyroidism, unspecified
CPT/HCPCS: 36415; 51701; 71046; 80048; 81001; 84484; 85025; 85610; 85730; 87077; 87086; 87088; 87186; 93005; 96365; 96367; 96375; 99284; J0131; J0696; J7040

== ENCOUNTER 2020-05-18 13:51 | Observation (INO) | payer MEDICARE, SELFPAY ==
--- NOTE | ~2020-05-18 | CT_ITS ---
EXAMINATION: CT chest abdomen pelvis wo con DATE: 05/19/2020 11:07 INDICATION: Chest and abdominal pain. TECHNIQUE: Computed tomography (CT) of the chest, abdomen, and pelvis was performed without intraveno us contrast. Automated exposure control and iterative reconstruction technique were employed. The dos e-length product was 343.31 mGy-cm. COMPARISON: CT abdomen and pelvis 03/20/2020 FINDINGS: CHEST CT: There is mild scarring at the lung apices. There is mild bronchiectasis in right middle lobe and ling more. Calcified pulmonary nodules and calcified hilar and mediastinal lymph nodes are consistent with old granulomatous disease. There is minimal atelectasis bilaterally. There are a few noncalcified nod ules in the lungs measuring up to 3 mm, likely benign. No pleural effusion. The heart size is normal. There are coronary artery calcifications. No pericardial effusion. There is severe thoracic spondylo sis. Thoracic kyphosis and dextroscoliosis are noted. ABDOMEN/PELVIS CT: Calcifications in the liver and spleen are consistent with old granulomatous disease. There are kwon es of cholecystectomy. The common duct is chronically dilated to 12 mm, likely not clinically signifi cant given the recent normal liver function tests. The pancreas and adrenal glands are normal. There is cortical thinning of the kidneys. There are cysts and hemorrhagic cysts in the kidneys measuring u p to 1.6 cm on the left. There is a 1 mm nonobstructing right kidney stone. There is diverticulosis o f the colon without evidence of diverticulitis. There are no dilated loops of bowel. The appendix is not visualized. There are no pathologically enlarged lymph nodes. There is no free intraperitoneal fl uid. There are bilateral hip arthroplasties. There is a benign bone island in left ilium. There is se rangel lumbar spondylosis. Lumbar levoscoliosis is noted. IMPRESSION: 1. 1 mm nonobstructing right kidney stone. Reviewed, dictated and finalized at location [facility].
--- NOTE | ~2020-05-18 | XR_ITS ---
EXAMINATION: XR chest 1V portable DATE: 05/18/2020 14:51 INDICATION: Shortness of breath. TECHNIQUE: A single frontal view of the chest was obtained. COMPARISON: Chest 2 views 05/16/2020, CT abdomen and pelvis 03/20/2020 FINDINGS: The chest demonstrates clear lungs without pneumonia, pleural effusion, or pneumothorax. Th e heart size is normal. IMPRESSION: 1. No acute cardiopulmonary disease. Reviewed, dictated and finalized at location [facility].
[2020-05-18 13:55] VITALS: BP 166/72; PULSE 68; RESP 18; TEMP 36.6; O2SAT 100
--- NOTE | 2020-05-18 14:32 | ECG_ITS ---
Measurements Intervals [place] Rate: 58 P: 79 [place]: 153 QRS: -30 QRSD: 94 T: 34 QT: 443 QTc: 439 Interpretive Statements SINUS BRADYCARDIA ANTEROSEPTAL INFARCT, AGE INDETERMINATE ABNORMAL ECG Electronically Signed On 05-18-2020 15:20:12 CDT by Marlon Joe D.O.
[2020-05-18 14:33] VITALS: BP 166/72; PULSE 69; RESP 22; O2SAT 98
--- NOTE | 2020-05-18 14:47 | ED.GENADULT ---
HPI - General Adult General Chief complaint: Allergic Reaction Stated complaint: allergic rxn Time Seen by Provider: 05/18/20 14:15 Source: patient Mode of arrival: ambulatory Limitations: no limitations History of Present Illness HPI narrative: This patient is an 79 year old female who presents for evaluation of a possible allergic reaction. Patient was evaluated 2 days ago for her chronic abdominal pain. She was discharged with keflex to treat a uti. PAtient states she took 3 doses of the keflex and she developed substernal chest pain radiated to her lower abdomen. She called her PCP and he changed her antibiotic to bactrim. She took her first dose 3 hours ago and she developed itching all over and chest pain radiating to her lower abdomen. This chest pain that radiates is chronic pain that patient has been evaluated in the ER many times for . She also reports dysuria. She denies fever, nausea or vomiting. Related Data Home Medications Medication Instructions Recorded Confirmed B Complex Plus Vitamin C 150 mg PO DAILY 09/01/19 05/18/20 Entresto 1 tablet PO Q12H 09/01/19 05/18/20 albuterol sulfate 2 puff INHALATION Q4-6H PRN 09/01/19 05/18/20 alprazolam 0.5 mg PO TID PRN 09/01/19 05/18/20 ascorbic acid (vitamin C) [Vitamin 500 mg PO DAILY 09/01/19 05/18/20 C With Debora Hips] cholecalciferol (vitamin D3) 5,000 unit PO DAILY 09/01/19 05/18/20 clopidogrel 75 mg PO DAILY 09/01/19 05/18/20 furosemide 40 mg PO DAILY 09/01/19 05/18/20 hydralazine 10 mg PO TID 09/01/19 05/18/20 levothyroxine 125 mcg PO DAILY 09/01/19 05/18/20 metoprolol succinate 50 mg PO DAILY 09/01/19 05/18/20 nitroglycerin 0.4 mg SUBLINGUAL Q5M PRN 09/01/19 05/18/20 pantoprazole 40 mg PO DAILY 09/01/19 05/18/20 trazodone 100 mg PO HS 09/01/19 05/18/20 ferrous sulfate 325 mg PO DAILY 09/06/19 05/18/20 prednisolone acetate 1 % RIGHTEYE DAILY 09/06/19 05/18/20 acetaminophen 500 mg PO Q4-6H PRN 12/01/19 05/18/20 spironolactone 25 mg PO DAILY 12/01/19 05/18/20 atorvastatin 40 mg PO DAILY 12/12/19 05/18/20 famotidine 20 mg PO BID 03/20/20 05/18/20 gabapentin 600 mg PO DAILY 03/20/20 05/18/20 oxybutynin chloride 10 mg PO DAILY 03/20/20 05/18/20 Allergies Allergy/AdvReac Type Severity Reaction Status Date / Time Penicillins Allergy Unknown Rash Verified 03/20/20 09:16 Review of Systems Review of Systems: All systems reviewed & are unremarkable except as noted in HPI and below Constitutional: Constitutional: Denies chills and Denies fever(s) Cardiovascular: Cardiovascular: Reports chest pain and Denies radiating jaw, neck or arm pain Respiratory: Respiratory: Denies cough and Reports dyspnea Gastrointestinal: Gastrointestinal: Reports abdominal pain and Reports nausea Integumentary/Breasts: Skin/Breast: Reports pruritus and Denies rash [facility] Social History Social History Social History: The patient lives with her in [place]. She has been twice, around 30 years to her current who happens to be her childhood sweetheart. She has 5 biological children and 3 step children. 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 She is a lifelong nonsmoker and does not drink alcohol or use illicit substances. Her primary care provider is Dr. Heri Tavarez. Smoking status: Never smoker Alcohol intake: never Substance use: never Gender identity (if verbalized by the patient): Female Spiritual care concerns: No Agree to blood products: Yes Exam Const: General: alert and ill appearing acutely Nutritional Appearance: thin Orientation/consciousness: patient oriented x3 Eyes: Pupils: Equal, round and reactive pupils present EOM: EOMs intact bilaterally Chest: Chest palpation & inspection: tenderness (diffuse) Resp: Effort & Inspection: normal respiratory effort and no retractions Auscultation: clear to auscultat
[2020-05-18 15:04] LABS: Basophils Percent Auto 0.2 % (0.2-1.2); Eosinophils Percent Auto 0.5 % (0-4.4); Hematocrit 26.7 % (37.0-47.0); Hemoglobin 8.9 g/dL (12.0-15.0); Immature Granulocyte Absolute 0.02 K/mm3 (0.00-0.031); Immature Granulocyte Percent A 0.5 % (0-0.5); Lymphocytes Absolute Auto 0.74 K/mm3 (0.9-3.2); Lymphocytes Percent Auto 17.1 % (18.3-44.2); Mean Corpuscular HGB Conc 33.3 g/dl (32-36); Mean Corpuscular Hemoglobin 33.1 pg (26-34); Mean Corpuscular Volume 99.3 fl (80-100); Mean Platelet Volume 9.1 fl (7.4-10.4); Monocytes Absolute Auto 0.5 K/mm3 (0.1-0.6); Monocytes Percent Auto 12.5 % (2.6-8.5); Neutrophils Percent Auto 69.2 % (45.5-73.1); Platelet Count Result 198 k/mm3 (150-375); Red Blood Count 2.69 M/mm3 (4.2-5.4); White Blood Count 4.3 K/mm3 (4.5-10.0)
[2020-05-18 15:12] LABS: Prothrombin Time 12.7 Seconds (11.1-14.7)
[2020-05-18 15:13] LABS: Partial Thromboplastin Time 23.5 SECONDS (22.3-36.8)
[2020-05-18 15:14] LABS: Alanine Aminotransferase 11 U/L (4-35); Albumin Level 3.9 g/dL (3.5-5.1); Alkaline Phosphatase 64 U/L (38-126); Anion Gap 8 mmol/L (8-16); Aspartate Amino Transferase 30 U/L (14-36); Bilirubin,Total 0.3 mg/dL (0.2-1.3); Blood Urea Nitrogen 23 mg/dL (7-17); Calcium 8.5 mg/dL (8.4-10.2); Carbon Dioxide 25 mmol/L (22-30); Chloride 94 mmol/L (98-107); Estimated Glomerular Filt Rate 36; Glucose 87 mg/dL (65-105); Lipase 82 U/L (23-300); Potassium 4.5 mmol/L (3.4-5.0); Sodium 127 mmol/L (137-145)
[2020-05-18 15:25] LABS: Troponin I < 0.012 ng/mL (0.000-0.034)
[2020-05-18 17:06] VITALS: BP 154/80; PULSE 67; RESP 18; O2SAT 97
[2020-05-18 18:46] VITALS: BP 177/73; PULSE 70; RESP 18; O2SAT 99
[2020-05-18 19:10] LABS: Troponin I < 0.012 ng/mL (0.000-0.034)
[2020-05-18 20:00] VITALS: BP 163/89; PULSE 70; PULSE 73; RESP 16; TEMP 36.1; O2SAT 99; BMI 16.9
[2020-05-18 21:37] LABS: Troponin I < 0.012 ng/mL (0.000-0.034)
[2020-05-18] MEDS: BELLADONNA ALK/PHENOB ELIX 10 ML, MAG HYDROX/ALUMINUM HYD/SIMETH 30 ML, LIDOCAINE HCL 2... PO (23:19)
[2020-05-19] VITALS (7 sets, daily range): BP systolic 125–136; BP diastolic 62–64; PULSE 54–90; RESP 16–18; TEMP 36.5–36.7; O2SAT 98–99; BMI 16.9
[2020-05-19] MEDS: ALPRAZolam 0.5 MG TABLET PO (00:26)
[2020-05-19] MEDS: traZODone HCL 50 MG TABLET 100 MG PO (00:26)
[2020-05-19] MEDS: hydrALAZINE 10 MG TABLET PO ×3 (00:27→13:30)
--- NOTE | 2020-05-19 00:35 | PC.NURSE ---
patient refuses entresto, stating her mutual funds agent discontinued this med. in her external med hx it shows she got it filled at pharmacy on 05/09/20. patient seems somewhat confused with this medication.
[2020-05-19 05:27] LABS: Hematocrit 28.9 % (37.0-47.0); Hemoglobin 9.4 g/dL (12.0-15.0); Mean Corpuscular HGB Conc 32.5 g/dl (32-36); Mean Corpuscular Hemoglobin 32.9 pg (26-34); Platelet Count Result 219 k/mm3 (150-375); Red Blood Count 2.86 M/mm3 (4.2-5.4); Red Cell Distribution Width 11.1 % (11.5-14.5); White Blood Count 5.1 K/mm3 (4.5-10.0)
[2020-05-19 05:30] LABS: Anion Gap 9 mmol/L (8-16); Blood Urea Nitrogen 22 mg/dL (7-17); Calcium 8.6 mg/dL (8.4-10.2); Carbon Dioxide 24 mmol/L (22-30); Chloride 95 mmol/L (98-107); Estimated CRCL calculation 20 ml/min; Estimated Glomerular Filt Rate 33; Glucose 85 mg/dL (65-105); Potassium 4.4 mmol/L (3.4-5.0); Sodium 128 mmol/L (137-145)
[2020-05-19 06:02] LABS: Creatinine Urine 63.3 mg/dL
[2020-05-19 06:03] LABS: Sodium Urine Random 57 meq/L
[2020-05-19] MEDS: LEVOTHYROXINE SODIUM 125 MCG TABLET PO (06:23)
[2020-05-19] MEDS: GABAPENTIN 300 MG CAPSULE 600 MG PO (08:17)
[2020-05-19] MEDS: CLOPIDOGREL BISULFATE 75 MG TABLET PO (08:17)
[2020-05-19] MEDS: ASCORBIC ACID 500 MG TABLET PO (08:17)
[2020-05-19] MEDS: CHOLECALCIFEROL 1,000 UNIT TABLET 5000 UNITS PO (08:17)
[2020-05-19] MEDS: METOPROLOL SUCCINATE EXT REL 50 MG TABCR PO (08:17)
[2020-05-19] MEDS: SACUBITRIL/VALSARTAN 24-26 MG TABLET 1 TAB PO (08:17)
[2020-05-19] MEDS: SPIRONOLACTONE 25 MG TABLET PO (08:17)
[2020-05-19] MEDS: FERROUS SULFATE 324 MG TABLET PO (08:17)
[2020-05-19] MEDS: FUROSEMIDE 40 MG TABLET PO (08:17)
[2020-05-19] MEDS: ATORVASTATIN 40 MG TABLET PO (08:17)
[2020-05-19] MEDS: VITAMIN B COMPLEX/VIT C CAPSULE 1 EACH PO (08:17)
[2020-05-19] MEDS: PANTOPRAZOLE 40 MG TABLET PO (08:18)
[2020-05-19] MEDS: FAMOTIDINE 20 MG/2 ML VIAL IV PUSH (08:23)
--- NOTE | 2020-05-19 09:51 | PM.IMHP ---
H&P: HPI History of Present Illness Date/Time: 05/19/20 09:51 Chief complaint: hyponatremia, abdominal pain Narrative: Dhara Harry is a 79 year old female with a past medical history of chronic abdominal/ chest pain, heart failure, CAD, anxiety, GERD, and thypothyroidism who presented emergency room for worsening abdominal/ chest pain. patient states that this pain is an ongoing pain that she has had for at least a year that has been getting worse the last few days and is mostly located in the epigastric area that radiates to the chest. She says it feels like there is pressure in the area that is constant. This pressure with happens when she is sitting or walking. It is somewhat hard to get an understanding of what she is trying to describe. She says the pain will last for days. She said a heating pad sometimes helps it. She denies sitting up and leaning forward as and alleviating factor. She states it is not associated with food, nausea, diaphoresis, arm pain, vomiting or diarrhea. although she does not go out a lot, she has not had any dyspnea on exertion walking to the mailbox but occasionally has dyspnea on exertion throughout her house where she has to sit down and rest. She does not recall if she takes medication to help this pain. Later in the conversation she says that she takes ibuprofen which sometimes helps. She also takes nitro occasionally but not very often which sometimes helps. She is very vague with her details and often changes the story little bit which makes it hard to obtain an accurate history. She does mention that the pain is worse when you palpate the area. Her pain is currently a 4/10. she does have a history of dyspepsia but this is a different pain from that. She had an EGD at 1 time in the past and can't remember anything about it. She does not know when her last stress test was but knows she has heart failure and sees Dr. Aj. She thinks her cardiac stents were 5 years ago. She does have 3 small flights of stairs in her house that she does not have dyspnea on exertion with. She has not changed her fluid intake lately. She reports previous dysuria which has resolved today. -Of note, in regards to the ER note/triagenote, the patient has no idea about any type of allergic reation and says she took some keflex (she thinks) but did not take bactrim and was not having a rash. She says she came in because her abdomen/chest was hurting and her pcp told her to come to the ER Review of Systems Review of Systems: All systems reviewed & are unremarkable except as noted in HPI and below [facility] Past Medical History Medical History (Updated 05/19/20 @ 10:17 by Amy Coughlin PA-C) Chronic anemia Chronic kidney disease, stage 3 Congestive heart failure Systolic and diastolic congestive heart failure Echo 11/27 showed EF 50%. Echo 01/14/2019: EF measured at 39%. September 2018 EF was 25%. Echo 12/02/2019 EF 50-55%. Grade 1 diastolic function. Coronary artery disease With multivessel surgical revascularization with PCI at [facility] October 2017. Cardiac catheterization 10/17/2018-mild preserved intra-stent luminal diameter Current use of assisted anticoagulation Depression with anxiety Detached retina Right-sided, x2. Frequent headaches GERD (gastroesophageal reflux disease) With history of esophageal stricture requiring dilatation. History of GI bleed History of rectal polyps Hyperlipidemia Hypertension Hypothyroidism TSH in November 2019 was a bit low, with normal T4. IBS (irritable bowel syndrome) Ischemic cardiomyopathy Mitral valve prolapse Myasthenia gravis Questionable history of. Obstructive sleep apnea Ocular herpes zoster History of shingles to the left eye, on chronic antiviral therapy. Paroxysmal atrial fibrillation No longer on long-term anticoagulation due to history of falls. Peripheral neuropathy Rectal polyp Restless leg syndrome Shingles Solitary rectal ulcer syndrome Yoan
[2020-05-19] MEDS: CIPROFLOXACIN 500 MG TAB PO (11:14)
[2020-05-19] MEDS: SACCHAROMYCES BOULARDII 250 MG CAPSULE PO (11:15)
--- NOTE | 2020-05-19 11:38 | PM.CNCAR ---
Assessment and Plan Additional Plan this 79-year-old lady with a somewhat complex history as summarized above presents with a pain syndrome that begins in the low chest area but then extends down through her abdomen into her suprapubic region. The symptoms are not suggestive of myocardial ischemia and the objective data shows no evidence of an acute coronary syndrome. As she is clinically very stable I would not recommend altering her heart failure regimen because of asymptomatic hyponatremia at this time. Will follow her as needed while she is in the hospital but I do not believe at this point this symptom represents a cardiac problem Nathaniel Aj MD [facility] History of Present Illness History of Present Illness Consult date/time: Date of service:05/19/20 11:38 Reason For Visit: hyponatremia, abdominal pain Narrative: This is an 79-year-old woman who is well known to me with a history of coronary artery disease, atrial arrhythmias as well as congestive heart failure. The patient was admitted to the hospital yesterday with symptoms of abdominal pain beginning in the low to mid chest [place] in the midline and radiating down into the abdomen and down into the low abdomen midline as well. The chart indicates she came to the emergency room she was primarily concerned that she might be having an allergic reaction to an antibiotic that was really recently started for suspected urinary tract infection. The patient states that was not the principal reason for her coming and it was this pain she has been having and also she has been having difficulty with her bowel habits she has not had a good bowel movement in a long time. As part of their evaluation her electrolyte panels have been of course done which demonstrate her sodium level to be low at 128. For whatever reason troponin levels were sampled as well and they are normal. Patient is not having any cardiac symptoms of any kind at this time. Because of the hyponatremia I have been asked to see her in consultation. She has a rather complex history of both supraventricular tachycardia as well as paroxysmal atrial fibrillation. She also has a history of coronary disease with high-grade LAD and proximal circumflex disease for which she was referred to [facility] for treatment several years ago. I believe that was in September of 2017. They felt she was too frail to undergo a bypass operation and so she received stenting of her LAD, diagonal as well as the ostium of the circumflex. Following that she did have an ejection fraction that was depressed at 24%. She had a series of admissions at [facility] with a variety of symptoms and did have some congestive heart failure. She has had several ischemic evaluations done since then including a return to the cardiac catheterization lab in February of 2019 when she was having chest pain and there was no evidence of any coronary stenosis. A low ejection for option of 24% in the past after revascularization improved substantially in follow-up echo at 39%. I last saw this patient in the office a couple of months ago at the beginning of March of this year at which time she seemed to be quite stable from the cardiac perspective. She denies any orthopnea PND or edema. Her chest x-ray demonstrates evidence of hyperinflation / COPD but otherwise clear lungs. Her cardiac regimen includes clopidogrel, Entresto, furosemide, hydralazine, metoprolol, and spironolactone. Review of Systems Constitutional: Constitutional: Reports weakness Eyes: Eyes: Reports no additional eye complaints ENT: Reports system reviewed and no additional complaints, except as documented Cardiovascular: Cardiovascular: Reports no additional cardiovascular complaints Respiratory: Respiratory: Reports no additional respiratory complaints Gastrointestinal: Gastrointestinal: Reports as per HPI, Reports abdominal pain and Reports constipation Musculoskeletal: Musculoskeletal: Reports no additional m
--- NOTE | 2020-05-19 13:45 | PM.DS ---
DS: Admitting Diagnosis Admitting Diagnosis Admitting Diagnosis: Hypo-osmolality and hyponatremia DS: Discharge Diagnosis Discharge Diagnosis (1) Hyponatremia: Code(s): E87.1 - Hypo-osmolality and hyponatremia Status: Acute Assessment and Plan: -----Pt was admitted d/t hyponatremia I believe. Her last sodium this morning was 128 and she appears asymptomatic with this. At baseline she ranges from 137-130 averaging about 133. She has not increased her fluid intake. She is on both lasix and spironolactone because she has a hx of systlic CHF. Her last echo was in nov which shows an improved EF of 50%. Since she is on multiple diuretics, I consulted Cardiology did not recommend any a additional treatment or adjustments to her medications. I called her primary care physician and let him know about her change in sodium and that will need to be monitored outpatient. He agreed (2) Paroxysmal atrial fibrillation: Code(s): I48.0 - Paroxysmal atrial fibrillation Status: Acute Assessment and Plan: -----Continue metoprolol. She goes in and out of afib. I am wondering if this pain she is feeling is palpitations from this? It is very non-specific and atypical. Not on anticoag due to hx of falls. (3) Epigastric abdominal pain: Code(s): R10.13 - Epigastric pain Status: Acute Assessment and Plan: -----Chronic and worsening. Recently had an MRCP which was normal. Chest abdomen pelvis CT did not show any etiology. There are multiple CTs in the past with no etiology. (4) Atypical chest pain: Code(s): R07.89 - Other chest pain Status: Acute Assessment and Plan: -----Very vague description provided by the patient which makes it hard to pin-point an etiology. This is acute on chronic. She says its starts at the top of her abdomen and goes up to her chest. This is somewhat reproducable and a heating pad helps. This points to a muscular skeletal etiology. Trops -x 4. ACS and Paracarditis seems less likely looking at the EKG. Could be feeling herself go in and out of afib? This chest pain is at rest and with exertion. GERD seems less likely since she takes a PPI and food does not seem to bring on the pain. No dark stools or diarrhea. Recent MRCP negative/ hx of cholecystectomy. Follow up with pcp. Consider amitriptyline (5) Chronic kidney disease, stage 3: Code(s): N18.3 - Chronic kidney disease, stage 3 (moderate) Status: Acute Assessment and Plan: -----Chronic and close to baseline. Renally dose medicatons. (6) Congestive heart failure: Code(s): I50.9 - Heart failure, unspecified Status: Chronic Assessment and Plan: -----Hx of systolic heart failure and is not in active HF at this time. Appears euvolemic. See above. (7) Hypertension: Code(s): I10 - Essential (primary) hypertension Status: Acute Assessment and Plan: -----controlled. Continue metoprolol and entresto. (8) Recurrent abdominal pain: Code(s): R10.9 - Unspecified abdominal pain Status: Acute Assessment and Plan: -----See above. f/u with pcp. (9) UTI (urinary tract infection): Code(s): N39.0 - Urinary tract infection, site not specified Status: Acute Assessment and Plan: -----05/16/20 found to have a UTI and reportately started on keflex. This was changed to cipro. She only needs 3-5 days of therapy as she has a normal WBC count but did have some dysuria in the last few days. DS: Summary Hospital Course Reason for hospitalization: Hyponatremia Hospital Course: Patient is an 79-year-old female who presented emergency room for abdominal/chest pain found to have hyponatremia 127. Patient was admitted to the hospitalist service. Please see above for further details. Spoke with Dr. Tavarez about cardiology's recommendations and he is going to follow her sodium outpatient. I let
== END 2020-05-19 16:55 | disposition home or self-care (01) ==
LOC: ANHED 17:51 → ANH2MED 19:08
PROVIDERS: Internal Medicine; Admitting Provider Internal Medicine; Emergency Provider General Practice; PCP Family Medicine; Visit Provider Family Medicine
DX: E87.1 Hypo-osmolality and hyponatremia (principal); I48.0 Paroxysmal atrial fibrillation; R07.89 Other chest pain; R10.13 Epigastric pain; I13.0 Hypertensive heart and chronic kidney disease with heart failure and stage 1 through stage 4 chronic kidney disease, or unspecified chronic kidney disease; K21.9 Gastro-esophageal reflux disease without esophagitis; N18.3 Chronic kidney disease, stage 3 (moderate); N39.0 Urinary tract infection, site not specified; E03.9 Hypothyroidism, unspecified; I25.10 Atherosclerotic heart disease of native coronary artery without angina pectoris; I50.40 Unspecified combined systolic (congestive) and diastolic (congestive) heart failure; Z96.643 Presence of artificial hip joint, bilateral; Z96.653 Presence of artificial knee joint, bilateral
CPT/HCPCS: 36415; 71045; 71250; 74176; 80048; 80053; 82570; 83690; 84300; 84484; 85025; 85027; 85610; 85730; 93005; 96365; 96366; 96376; 97161; 97165; 99285; A9270; G0378; J0131

== ENCOUNTER 2020-05-22 16:54 | Emergency (ER) | payer MEDICARE, SELFPAY ==
--- NOTE | ~2020-05-22 | XR_ITS ---
XR abdomen/kub 1V DATE: 05/22/2020 17:56 INDICATION: Generalized sharp abdominal pain TECHNIQUE: Portable supine AP views COMPARISON: None FINDINGS: There is rotatory levoscoliosis and severe multilevel degenerative disc disease of the lumb ar spine. There are bilateral total hip replacements. There are surgical clips overlying the right abdomen, likely due to cholecystectomy. There is calcifi cation of the abdominal aorta, iliac and femoral arteries. There are numerous calcified pelvic phlebo liths bilaterally. The bowel gas pattern is nonspecific, without evidence of obstruction. IMPRESSION: Abdomen Reviewed, dictated and finalized at Location [facility]. Reviewed, dictated and finalized at location [facility]. IMPRESSION: Abdomen
[2020-05-22 17:01] VITALS: BP 154/80; PULSE 64; RESP 14; TEMP 37.2; O2SAT 98
[2020-05-22] MEDS: SODIUM CHLORIDE 0.9% IV 1,000 ML 999 ML IV CONT (18:00)
[2020-05-22 18:12] LABS: Basophils Percent Auto 0.5 % (0.2-1.2); Eosinophils Percent Auto 0.7 % (0-4.4); Hematocrit 30.1 % (37.0-47.0); Immature Granulocyte Absolute 0.03 K/mm3 (0.00-0.031); Immature Granulocyte Percent A 0.7 % (0-0.5); Lymphocytes Absolute Auto 0.82 K/mm3 (0.9-3.2); Mean Corpuscular HGB Conc 33.2 g/dl (32-36); Mean Corpuscular Hemoglobin 32.9 pg (26-34); Mean Platelet Volume 9.4 fl (7.4-10.4); Monocytes Absolute Auto 0.6 K/mm3 (0.1-0.6); Monocytes Percent Auto 13.2 % (2.6-8.5); Neutrophils Absolute Auto 2.8 K/mm3 (1.3-6.7); Neutrophils Percent Auto 65.9 % (45.5-73.1); Platelet Count Result 243 k/mm3 (150-375); Red Blood Count 3.04 M/mm3 (4.2-5.4); Red Cell Distribution Width 11.1 % (11.5-14.5); White Blood Count 4.3 K/mm3 (4.5-10.0)
[2020-05-22 18:19] LABS: Add Urine Microscopic? YES; Amorphous Sediment Urine Few; Appearance Urine Clear (Clear); Bacteria Urine Trace /hpf; Bilirubin Urine Negative (Negative); Blood Urine Negative (Negative); Color Urine Yellow (Yellow); Glucose Urine UA Negative (Negative); Hyaline Casts Urine 15-19 /lpf; Ketones Urine Negative (Negative); Leukocyte Esterase Ur 3+ LEU/UL (Negative); Mucus Urine Rare /lpf; Nitrate Urine Negative (Negative); Protein Urine Negative (Negative); RBC Urine 0-2 /hpf (0-2); Specific Grav Ur 1.013 (1.001-1.035); Squamous Epithelial Cell Urine Many /hpf (Few); Urobilinogen Urine Negative mg/dL (<2.0)
[2020-05-22 18:24] LABS: Alanine Aminotransferase 15 U/L (4-35); Albumin Level 4.4 g/dL (3.5-5.1); Alkaline Phosphatase 68 U/L (38-126); Anion Gap 11 mmol/L (8-16); Aspartate Amino Transferase 33 U/L (14-36); Bilirubin,Total 0.1 mg/dL (0.2-1.3); Blood Urea Nitrogen 30 mg/dL (7-17); Calcium 8.7 mg/dL (8.4-10.2); Carbon Dioxide 25 mmol/L (22-30); Chloride 91 mmol/L (98-107); Estimated CRCL calculation 19 ml/min; Estimated Glomerular Filt Rate 31; Glucose 86 mg/dL (65-105); Lipase 179 U/L (23-300); Sodium 127 mmol/L (137-145)
[2020-05-22 18:45] VITALS: BP 135/94; PULSE 64; RESP 20; O2SAT 100
--- NOTE | 2020-05-22 18:56 | ED.GENADULT ---
HPI - General Adult General Chief complaint: Abdominal Pain Stated complaint: gastrointestinal problems, worse its been Time Seen by Provider: 05/22/20 17:20 Source: patient History of Present Illness HPI narrative: Abdominal pain going all the way up to the chest for months. Patient denies any fever, chills, nausea, vomiting, diarrhea, constipation, shortness of breath. Patient report having the same symptoms for months without a specific diagnosis. Patient was discharged from our hospital recently. And was admitted to the hospital for the same symptoms. Related Data Home Medications Medication Instructions Recorded Confirmed B Complex Plus Vitamin C 150 mg PO DAILY 09/01/19 05/18/20 Entresto 1 tablet PO Q12H 09/01/19 05/18/20 albuterol sulfate 2 puff INHALATION Q4-6H PRN 09/01/19 05/18/20 alprazolam 0.5 mg PO TID PRN 09/01/19 05/18/20 ascorbic acid (vitamin C) [Vitamin 500 mg PO DAILY 09/01/19 05/18/20 C With Debora Hips] cholecalciferol (vitamin D3) 5,000 unit PO DAILY 09/01/19 05/18/20 clopidogrel 75 mg PO DAILY 09/01/19 05/18/20 furosemide 40 mg PO DAILY 09/01/19 05/18/20 hydralazine 10 mg PO TID 09/01/19 05/18/20 levothyroxine 125 mcg PO DAILY 09/01/19 05/18/20 metoprolol succinate 50 mg PO DAILY 09/01/19 05/18/20 nitroglycerin 0.4 mg SUBLINGUAL Q5M PRN 09/01/19 05/18/20 pantoprazole 40 mg PO DAILY 09/01/19 05/18/20 trazodone 100 mg PO HS 09/01/19 05/18/20 ferrous sulfate 325 mg PO DAILY 09/06/19 05/18/20 prednisolone acetate 1 % RIGHTEYE DAILY 09/06/19 05/18/20 acetaminophen 500 mg PO Q4-6H PRN 12/01/19 05/18/20 spironolactone 25 mg PO DAILY 12/01/19 05/18/20 atorvastatin 40 mg PO DAILY 12/12/19 05/18/20 famotidine 20 mg PO BID 03/20/20 05/18/20 gabapentin 600 mg PO DAILY 03/20/20 05/18/20 oxybutynin chloride 10 mg PO DAILY 03/20/20 05/18/20 potassium chloride 05/22/20 Allergies Allergy/AdvReac Type Severity Reaction Status Date / Time Penicillins Allergy Unknown Rash Verified 05/22/20 17:07 Review of Systems Review of Systems: Narrative: CONSTITUTIONAL: Denies fever, chills, or sweats. EYES: Denies visual changes, redness, or discharge. ENT: Denies rhinorrhea, congestion, sore throat, or otalgia. CARDIOVASCULAR: Chest pain RESPIRATORY: Denies cough or dyspnea. GASTROINTESTINAL: Abdominal pain GENITOURINARY: Denies dysuria or hematuria. SKIN: Denies rash or itching. MUSCULOSKELETAL: Denies back pain, joint pain, or myalgia. NEUROLOGIC: Denies headache, numbness, or weakness. PSYCHIATRIC: Denies anxiety or depression. [facility] Past Medical History Medical History Chronic anemia Chronic kidney disease, stage 3 Congestive heart failure Systolic and diastolic congestive heart failure Echo 11/27 showed EF 50%. Echo 01/14/2019: EF measured at 39%. September 2018 EF was 25%. Echo 12/02/2019 EF 50-55%. Grade 1 diastolic function. Coronary artery disease With multivessel surgical revascularization with PCI at [facility] October 2017. Cardiac catheterization 10/17/2018-mild preserved intra-stent luminal diameter Current use of intermediate anticoagulation Depression with anxiety Detached retina Right-sided, x2. Frequent headaches GERD (gastroesophageal reflux disease) With history of esophageal stricture requiring dilatation. History of GI bleed History of rectal polyps Hyperlipidemia Hypertension Hypothyroidism TSH in November 2019 was a bit low, with normal T4. IBS (irritable bowel syndrome) Ischemic cardiomyopathy Mitral valve prolapse Myasthenia gravis Questionable history of. Obstructive sleep apnea Ocular herpes zoster History of shingles to the left eye, on chronic antiviral therapy. Paroxysmal atrial fibrillation No longer on long-term anticoagulation due to history of falls. Peripheral neuropathy Rectal polyp Restless leg syndrome Shingles Solitary rectal ulcer syndrome Surgical History Surgical History (Reviewed 05/22/20 @ 19:10 by Larry Cole
[2020-05-22 19:15] VITALS: BP 165/70; PULSE 72; RESP 20; O2SAT 97
== END 2020-05-22 19:18 | disposition home or self-care (01) ==
PROVIDERS: Emergency Provider Emergency Medicine; PCP Family Medicine
DX: R10.9 Unspecified abdominal pain (principal); R07.9 Chest pain, unspecified; G89.29 Other chronic pain; E87.1 Hypo-osmolality and hyponatremia; I13.0 Hypertensive heart and chronic kidney disease with heart failure and stage 1 through stage 4 chronic kidney disease, or unspecified chronic kidney disease; N18.3 Chronic kidney disease, stage 3 (moderate); I50.40 Unspecified combined systolic (congestive) and diastolic (congestive) heart failure; I25.10 Atherosclerotic heart disease of native coronary artery without angina pectoris; K21.9 Gastro-esophageal reflux disease without esophagitis; E87.5 Hyperkalemia; K58.9 Irritable bowel syndrome, unspecified; I25.2 Old myocardial infarction; I34.1 Nonrheumatic mitral (valve) prolapse; G47.33 Obstructive sleep apnea (adult) (pediatric); I48.0 Paroxysmal atrial fibrillation; Z79.01 Long term (current) use of anticoagulants; G62.9 Polyneuropathy, unspecified; G25.81 Restless legs syndrome; Z96.643 Presence of artificial hip joint, bilateral; Z96.653 Presence of artificial knee joint, bilateral; Z98.42 Cataract extraction status, left eye; Z98.41 Cataract extraction status, right eye; Z79.82 Long term (current) use of aspirin; Z87.19 Personal history of other diseases of the digestive system; E03.9 Hypothyroidism, unspecified
CPT/HCPCS: 36415; 74018; 80053; 81001; 83690; 85025; 96361; 96374; 99284; J2060; J7030

== ENCOUNTER 2020-05-25 15:50 | Emergency (ER) | payer MEDICARE, SELFPAY ==
[2020-05-25] VITALS (9 sets, daily range): BP systolic 136–180; BP diastolic 73–107; PULSE 57–77; RESP 18–28; TEMP 36.6; O2SAT 97–100
--- NOTE | ~2020-05-25 | XR_ITS ---
EXAMINATION: XR chest 2V DATE: 05/25/2020 17:07 INDICATION: Midsternal chest pain TECHNIQUE: PA and lateral views of the chest are obtained. COMPARISON: 05/18/2020 FINDINGS: The lungs are free of acute opacities. Scarring is noted in the lung apices. There is no pl eural effusion or pneumothorax. The heart size is normal. Coronary artery stents are noted. There is severe thoracic spondylosis. Calcified pulmonary nodules are consistent with old granulomatous diseas e. IMPRESSION: 1. No acute cardiopulmonary abnormality. Reviewed, dictated and finalized at location A.
--- NOTE | ~2020-05-25 | CT_ITS ---
EXAMINATION: CTA abdomen pelvis DATE: 05/26/2020 09:28 INDICATION: Recurrent severe abdominal pain TECHNIQUE: Computed tomographic angiography (CTA) of the abdomen and pelvis was performed with 100 mL Omnipaque-350 intravenous contrast. Maximum intensity projection 3D-reconstructions of the aorta and other arteries were constructed by the technologist on a separate workstation. The dose-length produ ct (DLP) was 229.01 mGy-cm. Automated exposure control and iterative reconstruction technique were em ployed. COMPARISON: 05/19/2020 FINDINGS: There is no aneurysm or dissection of the abdominal aorta. The celiac axis is unremarkable. The right hepatic artery arises from the superior mesenteric artery. Single renal arteries are prese nt. The inferior mesenteric artery there is mild stenosis at the origin of the inferior mesenteric ar rolando. The lung bases are clear. The heart size is normal. Punctate calcifications in otherwise normal appea ring liver and spleen likely represent healed granulomatous disease. The gallbladder is surgically ab sent. There is mild enlargement of the common bile duct and central intrahepatic ducts which is likel y due to post cholecystectomy state. Simple and hemorrhagic cysts of the kidneys measure up to 1.6 cm on the left. No pathologically enlarged abdominal or pelvic lymph nodes are identified. There is no free intraperitoneal gas or evidence of bowel obstruction. Colonic diverticulosis is present without evidence of diverticulitis. There are changes of bilateral hip arthroplasty. A bone island is noted i n the left ilium. There is severe lumbar spondylosis. IMPRESSION: 1. No CT correlate for the patient's symptoms. Reviewed, dictated and finalized at location A.
--- NOTE | 2020-05-25 15:57 | ECG_ITS ---
Measurements Intervals [place] Rate: 72 P: 85 SD: 163 QRS: -27 QRSD: 94 T: 62 QT: 420 QTc: 461 Interpretive Statements SINUS RHYTHM WITH MARKED SINUS ARRHYTHMIA ANTEROSEPTAL INFARCT, AGE INDETERMINATE ABNORMAL ECG Electronically Signed On 05-25-2020 16:48:43 CDT by Marlon Joe D.O.
[2020-05-25] MEDS: ASPIRIN 81 MG CHEWABLE TABLET 324 MG PO (16:08)
[2020-05-25 16:09] LABS: Basophils Percent Auto 0.4 % (0.2-1.2); Eosinophils Percent Auto 0.4 % (0-4.4); Hemoglobin 9.2 g/dL (12.0-15.0); Immature Granulocyte Absolute 0.02 K/mm3 (0.00-0.031); Immature Granulocyte Percent A 0.4 % (0-0.5); Lymphocytes Absolute Auto 0.93 K/mm3 (0.9-3.2); Mean Corpuscular HGB Conc 34.1 g/dl (32-36); Mean Corpuscular Hemoglobin 32.9 pg (26-34); Mean Corpuscular Volume 96.4 fl (80-100); Mean Platelet Volume 9.2 fl (7.4-10.4); Monocytes Absolute Auto 0.5 K/mm3 (0.1-0.6); Monocytes Percent Auto 9.9 % (2.6-8.5); Neutrophils Absolute Auto 3.2 K/mm3 (1.3-6.7); Neutrophils Percent Auto 68.9 % (45.5-73.1); Platelet Count Result 234 k/mm3 (150-375); Red Cell Distribution Width 10.9 % (11.5-14.5); White Blood Count 4.7 K/mm3 (4.5-10.0)
[2020-05-25 16:19] LABS: Prothrombin Time 12.7 Seconds (11.1-14.7)
[2020-05-25 16:20] LABS: Partial Thromboplastin Time 25.9 SECONDS (22.3-36.8)
[2020-05-25 16:26] LABS: Anion Gap 12 mmol/L (8-16); Blood Urea Nitrogen 24 mg/dL (7-17); Calcium 8.6 mg/dL (8.4-10.2); Carbon Dioxide 23 mmol/L (22-30); Chloride 91 mmol/L (98-107); Estimated CRCL calculation 23 ml/min; Estimated Glomerular Filt Rate 36; Glucose 118 mg/dL (65-105); Potassium 4.6 mmol/L (3.4-5.0); Sodium 126 mmol/L (137-145)
--- NOTE | 2020-05-25 16:26 | ED.GENADULT ---
HPI - General Adult General Chief complaint: Chest Pain <Erika Power MD - Last Filed: 05/26/20 10:28> Stated complaint: cp <Erika Power MD - Last Filed: 05/26/20 10:28> Time Seen by Provider: 05/25/20 16:11 <Erika Power MD - Last Filed: 05/26/20 10:28> Source: patient and family () <Erika Power MD - Last Filed: 05/26/20 10:28> Mode of arrival: ambulatory <Erika Power MD - Last Filed: 05/26/20 10:28> Limitations: no limitations <Erika Power MD - Last Filed: 05/26/20 10:28> History of Present Illness HPI narrative: Patient presents with chest pain and abdominal pain since this morning about 10 AM. She was resting on the couch when this started. She says it is 10 out of 10 pain but worse when I touch her. She recently had a UTI and finished her antibiotic. She has known coronary artery disease with 3 stents and congestive heart failure with improving cardiac output the last was 50%. She is admitted frequently for the same complaints. A cause has not been found. The is particularly concerned because he says he does not know what to do for her. Neither she or her know what causes it to get better. <Erika Power MD - Last Filed: 05/26/20 10:28> Onset (ago): hour(s) <Erika Power MD - Last Filed: 05/26/20 10:28> Location: chest and abdomen <Erika Power MD - Last Filed: 05/26/20 10:28> Radiation: non-radiation <Erika Power MD - Last Filed: 05/26/20 10:28> Severity: severe <Erika Power MD - Last Filed: 05/26/20 10:28> Severity scale (1-10): 10 <Erika Power MD - Last Filed: 05/26/20 10:28> Pain Consistency: constant <Erika Power MD - Last Filed: 05/26/20 10:28> Relieving factors: none <Erika Power MD - Last Filed: 05/26/20 10:28> Exacerbating factors: other (Palpitation) <Erika Power MD - Last Filed: 05/26/20 10:28> Associated symptoms: chest pain and other (Nausea but no vomiting) <Erika Power MD - Last Filed: 05/26/20 10:28> Treatments prior to arrival: none <Erika Power MD - Last Filed: 05/26/20 10:28> Related Data Home medications: Home Medications Medication Instructions Recorded Confirmed B Complex Plus Vitamin C 150 mg PO DAILY 09/01/19 05/18/20 Entresto 1 tablet PO Q12H 09/01/19 05/18/20 albuterol sulfate 2 puff INHALATION Q4-6H PRN 09/01/19 05/18/20 alprazolam 0.5 mg PO TID PRN 09/01/19 05/18/20 ascorbic acid (vitamin C) [Vitamin 500 mg PO DAILY 09/01/19 05/18/20 C With Debora Hips] cholecalciferol (vitamin D3) 5,000 unit PO DAILY 09/01/19 05/18/20 clopidogrel 75 mg PO DAILY 09/01/19 05/18/20 furosemide 40 mg PO DAILY 09/01/19 05/18/20 hydralazine 10 mg PO TID 09/01/19 05/18/20 levothyroxine 125 mcg PO DAILY 09/01/19 05/18/20 metoprolol succinate 50 mg PO DAILY 09/01/19 05/18/20 nitroglycerin 0.4 mg SUBLINGUAL Q5M PRN 09/01/19 05/18/20 pantoprazole 40 mg PO DAILY 09/01/19 05/18/20 trazodone 100 mg PO HS 09/01/19 05/18/20 ferrous sulfate 325 mg PO DAILY 09/06/19 05/18/20 prednisolone acetate 1 % RIGHTEYE DAILY 09/06/19 05/18/20 acetaminophen 500 mg PO Q4-6H PRN 12/01/19 05/18/20 spironolactone 25 mg PO DAILY 12/01/19 05/18/20 atorvastatin 40 mg PO DAILY 12/12/19 05/18/20 famotidine 20 mg PO BID 03/20/20 05/18/20 gabapentin 600 mg PO DAILY 03/20/20 05/18/20 oxybutynin chloride 10 mg PO DAILY 03/20/20 05/18/20 potassium chloride 05/22/20 <Erika Power MD - Last Filed: 05/26/20 10:28> Allergies/adverse reactions: Allergies Allergy/AdvReac Type Severity Reaction Status Date / Time Penicillins Allergy Unknown Rash Verified 05/22/20 17:07 <Erika Power MD - Last Filed: 05/26/20 10:28> Review of Systems Review of Systems: Narrative: CONSTITUTIONAL: Denies fever, chills, or sweats. ENT: Denies rhinorrhea, congestion, sore throat, or otalgia. CARDIOVASCULAR: She has chest pain, but not palpitations, or edema. RESPIRATORY:
[2020-05-25 16:33] LABS: Troponin I < 0.012 ng/mL (0.000-0.034)
[2020-05-25] MEDS: MORPHINE SULFATE 2 MG/ML INJ IV PUSH ×2 (16:35→18:01)
[2020-05-25 16:37] LABS: Lipase 96 U/L (23-300); NT Pro B Type Natriuretic Pept 811 PG/ML (5-100)
[2020-05-25 17:26] LABS: Add Urine Microscopic? YES; Appearance Urine Clear (Clear); Bacteria Urine Trace /hpf; Bilirubin Urine Negative (Negative); Blood Urine Negative (Negative); Color Urine Yellow (Yellow); Glucose Urine UA Negative (Negative); Ketones Urine Negative (Negative); Leukocyte Esterase Ur Negative LEU/UL (Negative); Nitrate Urine Negative (Negative); Protein Urine Negative (Negative); Specific Grav Ur 1.012 (1.001-1.035); Squamous Epithelial Cell Urine Few /hpf (Few); Urobilinogen Urine Negative mg/dL (<2.0); WBC Urine 0-3 /hpf
[2020-05-25 19:42] LABS: Troponin I < 0.012 ng/mL (0.000-0.034)
[2020-05-25] MEDS: hydrALAZINE 10 MG TABLET PO (22:08)
[2020-05-25] MEDS: ALPRAZolam 0.25 MG TABLET 0.5 MG PO (22:09)
[2020-05-25 22:39] LABS: Troponin I < 0.012 ng/mL (0.000-0.034)
[2020-05-26] VITALS: BP 158/84; PULSE 65; RESP 21; TEMP 36.6; O2SAT 97
[2020-05-26] MEDS: traZODone HCL 50 MG TABLET 100 MG PO (00:46)
[2020-05-26] MEDS: ACYCLOVIR 200 MG CAPSULE 1000 MG PO (00:47)
--- NOTE | 2020-05-26 00:54 | PC.NURSE ---
Patient transferred to regular hospital bed for comfort
[2020-05-26 02:00] VITALS: BP 160/76; PULSE 64; RESP 20; O2SAT 99
--- NOTE | 2020-05-26 03:40 | PC.NURSE ---
Spoke with Tabitha for [facility] - still no bed, VS/condition update given
[2020-05-26 04:00] VITALS: BP 156/71; PULSE 69; RESP 18; O2SAT 98
[2020-05-26 06:30] VITALS: BP 147/70; PULSE 58; RESP 18; TEMP 36.6; O2SAT 99
[2020-05-26 11:05] VITALS: BP 159/74; PULSE 80; RESP 16; O2SAT 99
[2020-05-26 14:19] LABS: SARS-CoV-2 RNA PCR Negative
== END 2020-05-26 11:38 | disposition home or self-care (01) ==
PROVIDERS: Emergency Medicine; Emergency Provider Emergency Medicine; PCP Family Medicine
DX: J44.9 Chronic obstructive pulmonary disease, unspecified (principal); R07.9 Chest pain, unspecified; R10.84 Generalized abdominal pain; I50.9 Heart failure, unspecified; E87.1 Hypo-osmolality and hyponatremia; I13.0 Hypertensive heart and chronic kidney disease with heart failure and stage 1 through stage 4 chronic kidney disease, or unspecified chronic kidney disease; N18.3 Chronic kidney disease, stage 3 (moderate); I25.10 Atherosclerotic heart disease of native coronary artery without angina pectoris; Z79.01 Long term (current) use of anticoagulants; F41.9 Anxiety disorder, unspecified; F32.9 Major depressive disorder, single episode, unspecified; K21.9 Gastro-esophageal reflux disease without esophagitis; E03.9 Hypothyroidism, unspecified; G47.30 Sleep apnea, unspecified; I48.91 Unspecified atrial fibrillation; G25.81 Restless legs syndrome
CPT/HCPCS: 36415; 71046; 74174; 80048; 81001; 83690; 83880; 84484; 85025; 85610; 85730; 87635; 93005; 96374; 96376; 99284; A9270; C9803; J2270; Q9967; U0003

== ENCOUNTER 2020-05-31 10:14 | Emergency (ER) | payer MEDICARE, SELFPAY ==
[2020-05-31] VITALS (23 sets, daily range): BP systolic 100–135; BP diastolic 62–86; PULSE 59–87; RESP 12–27; TEMP 36.1; O2SAT 77–100
--- NOTE | ~2020-05-31 | XR_ITS ---
EXAMINATION: XR chest 2V DATE: 05/31/2020 11:11 INDICATION: Chest pain. TECHNIQUE: Frontal and lateral views of the chest were obtained. COMPARISON: Chest 2 views 05/25/2020, chest CT 05/19/2020 FINDINGS: The chest demonstrates clear lungs without pneumonia, pleural effusion, or pneumothorax. Th e heart size is normal. IMPRESSION: 1. No acute cardiopulmonary disease. Reviewed, dictated and finalized at location B.
--- NOTE | 2020-05-31 11:01 | ECG_ITS ---
Measurements Intervals [place] Rate: 71 P: 76 MD: 155 QRS: -32 QRSD: 90 T: 47 QT: 383 QTc: 416 Interpretive Statements SINUS RHYTHM ATRIAL PREMATURE COMPLEX LEFT AXIS DEVIATION LOW VOLTAGE- LIMB LEADS ANTEROSEPTAL INFARCT, AGE INDETERMINATE BASELINE ARTIFACT- I, II , III ,AVL ABNORMAL ECG Electronically Signed On 05-31-2020 11:53:08 CDT by Marlon Joe D.O.
--- NOTE | 2020-05-31 11:27 | ED.CHESTPAIN ---
HPI - Chest Pain General Chief Complaint: Chest Pain Stated Complaint: cp Time Seen by Provider: 05/31/20 11:13 Source: patient Mode of arrival: wheelchair Limitations: no limitations History of Present Illness HPI narrative: This is an 79-year-old female that presents to the emergency department for epigastric pain/chest pain since last night. Reports the pain is burning in nature. Reports history of ulcers. Reports this morning she noted some dark stools. She has not taken anything for her symptoms. Denies fever, cough, shortness of breath, vomiting, dysuria, hematuria. Related Data Home Medications Medication Instructions Recorded Confirmed B Complex Plus Vitamin C 150 mg PO DAILY 09/01/19 05/18/20 Entresto 1 tablet PO Q12H 09/01/19 05/18/20 albuterol sulfate 2 puff INHALATION Q4-6H PRN 09/01/19 05/18/20 alprazolam 0.5 mg PO TID PRN 09/01/19 05/18/20 ascorbic acid (vitamin C) [Vitamin 500 mg PO DAILY 09/01/19 05/18/20 C With Debora Hips] cholecalciferol (vitamin D3) 5,000 unit PO DAILY 09/01/19 05/18/20 clopidogrel 75 mg PO DAILY 09/01/19 05/18/20 furosemide 40 mg PO DAILY 09/01/19 05/18/20 hydralazine 10 mg PO TID 09/01/19 05/18/20 levothyroxine 125 mcg PO DAILY 09/01/19 05/18/20 metoprolol succinate 50 mg PO DAILY 09/01/19 05/18/20 nitroglycerin 0.4 mg SUBLINGUAL Q5M PRN 09/01/19 05/18/20 pantoprazole 40 mg PO DAILY 09/01/19 05/18/20 trazodone 100 mg PO HS 09/01/19 05/18/20 ferrous sulfate 325 mg PO DAILY 09/06/19 05/18/20 prednisolone acetate 1 % RIGHTEYE DAILY 09/06/19 05/18/20 acetaminophen 500 mg PO Q4-6H PRN 12/01/19 05/18/20 spironolactone 25 mg PO DAILY 12/01/19 05/18/20 atorvastatin 40 mg PO DAILY 12/12/19 05/18/20 famotidine 20 mg PO BID 03/20/20 05/18/20 gabapentin 600 mg PO DAILY 03/20/20 05/18/20 oxybutynin chloride 10 mg PO DAILY 03/20/20 05/18/20 potassium chloride 05/22/20 acyclovir 05/31/20 topiramate 05/31/20 Allergies Allergy/AdvReac Type Severity Reaction Status Date / Time Penicillins Allergy Unknown Rash Verified 05/31/20 11:29 Review of Systems Review of Systems: Narrative: CONSTITUTIONAL: Denies fever CARDIOVASCULAR: Reports chest pain RESPIRATORY: Denies cough or dyspnea. GASTROINTESTINAL: Reports abdominal pain and hematochezia. Denies nausea, vomiting GENITOURINARY: Denies dysuria or hematuria. All systems reviewed & are unremarkable except as noted in HPI and below PMFSH Social History Social History Social History: Pt would like her , Annie to be her decision maker if she is unable to make her own decsions. She would like to be a full code. 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 She is a lifelong nonsmoker and does not drink alcohol or use illicit substances. Her primary care provider is Dr. Heri Tavarez. Smoking status: Never smoker Alcohol intake: never Substance use: never Gender identity (if verbalized by the patient): Female Spiritual care concerns: No Agree to blood products: Yes Exam Narrative: Exam Narrative: GENERAL: Elderly, well-nourished, and in no acute distress. HEAD: Normocephalic, atraumatic. EYES: EOMI. CHEST: Clear to auscultation. No respiratory distress. No wheezes rales or rhonchi. Tender to palpation of the mid/anterior chest wall HEART: Regular rate and rhythm. No murmur heard. Normal peripheral pulses. ABDOMEN: Soft, nondistended, normal active bowel sounds. Mild tenderness to palpation in the epigastric area, without guarding EXTREMITIES: Normal range of motion. No edema. SKIN: Warm, dry, no rash. NEURO: No focal deficits. Alert and oriented x3. PSYCH: Normal mood and affect RECTAL: Several nonthrombosed external hemorrhoids, Hemoccult negative Course Consultations Consultation #1: Spoke with Dr. Coates about patient work-up who will follow-up in clinic. Date: 05/31/20 Time: 14:45 Consultation #2: Also
[2020-05-31 11:38] LABS: Basophils Percent Auto 0.2 % (0.2-1.2); Eosinophils Percent Auto 0.2 % (0-4.4); Hematocrit 30.9 % (37.0-47.0); Hemoglobin 10.2 g/dL (12.0-15.0); Immature Granulocyte Absolute 0.02 K/mm3 (0.00-0.031); Immature Granulocyte Percent A 0.4 % (0-0.5); Lymphocytes Absolute Auto 0.52 K/mm3 (0.9-3.2); Lymphocytes Percent Auto 10.2 % (18.3-44.2); Mean Corpuscular Hemoglobin 32.6 pg (26-34); Mean Corpuscular Volume 98.7 fl (80-100); Mean Platelet Volume 9.4 fl (7.4-10.4); Monocytes Absolute Auto 0.5 K/mm3 (0.1-0.6); Monocytes Percent Auto 9.4 % (2.6-8.5); Neutrophils Percent Auto 79.6 % (45.5-73.1); Platelet Count Result 284 k/mm3 (150-375); Red Blood Count 3.13 M/mm3 (4.2-5.4); Red Cell Distribution Width 11.1 % (11.5-14.5); White Blood Count 5.1 K/mm3 (4.5-10.0)
[2020-05-31] MEDS: PANTOPRAZOLE SODIUM IV 40 MG VIAL 80 MG IV PUSH (11:43)
[2020-05-31 11:52] LABS: Alanine Aminotransferase 17 U/L (4-35); Albumin Level 4.5 g/dL (3.5-5.1); Alkaline Phosphatase 61 U/L (38-126); Anion Gap 10 mmol/L (8-16); Aspartate Amino Transferase 40 U/L (14-36); Bilirubin,Total 0.4 mg/dL (0.2-1.3); Blood Urea Nitrogen 29 mg/dL (7-17); Carbon Dioxide 26 mmol/L (22-30); Chloride 91 mmol/L (98-107); Estimated CRCL calculation 22 ml/min; Estimated Glomerular Filt Rate 39; Glucose 99 mg/dL (65-105); Lipase 79 U/L (23-300); Potassium 4.9 mmol/L (3.4-5.0); Sodium 127 mmol/L (137-145)
[2020-05-31 12:00] LABS: INR 0.9
[2020-05-31 12:02] LABS: Partial Thromboplastin Time 25.3 SECONDS (22.3-36.8)
[2020-05-31 12:03] LABS: Troponin I < 0.012 ng/mL (0.000-0.034)
[2020-05-31 14:38] LABS: Troponin I < 0.012 ng/mL (0.000-0.034)
== END 2020-05-31 15:10 | disposition home or self-care (01) ==
PROVIDERS: Physician Assistant; Emergency Provider Emergency Medicine; PCP Family Medicine
DX: R10.13 Epigastric pain (principal); K92.1 Melena; E87.1 Hypo-osmolality and hyponatremia; I13.0 Hypertensive heart and chronic kidney disease with heart failure and stage 1 through stage 4 chronic kidney disease, or unspecified chronic kidney disease; N18.3 Chronic kidney disease, stage 3 (moderate); I50.40 Unspecified combined systolic (congestive) and diastolic (congestive) heart failure; I25.10 Atherosclerotic heart disease of native coronary artery without angina pectoris; K21.9 Gastro-esophageal reflux disease without esophagitis; E87.5 Hyperkalemia; I25.2 Old myocardial infarction; K58.9 Irritable bowel syndrome, unspecified; I34.1 Nonrheumatic mitral (valve) prolapse; G47.33 Obstructive sleep apnea (adult) (pediatric); I48.0 Paroxysmal atrial fibrillation; Z79.01 Long term (current) use of anticoagulants; G62.9 Polyneuropathy, unspecified; G25.81 Restless legs syndrome; Z96.643 Presence of artificial hip joint, bilateral; Z96.653 Presence of artificial knee joint, bilateral; Z98.42 Cataract extraction status, left eye; Z98.41 Cataract extraction status, right eye; Z79.82 Long term (current) use of aspirin; Z87.19 Personal history of other diseases of the digestive system; E03.9 Hypothyroidism, unspecified
CPT/HCPCS: 36415; 71046; 80053; 83690; 84484; 85025; 85610; 85730; 86850; 86900; 86901; 93005; 96365; 96375; 99284; C9113; J0131

== ENCOUNTER 2020-06-02 09:53 | Emergency (ER) | payer MEDICARE, SELFPAY ==
[2020-06-02 09:57] VITALS: BP 112/50; PULSE 73; RESP 20; TEMP 36.1; O2SAT 97
[2020-06-02 10:11] VITALS: PULSE 59
--- NOTE | 2020-06-02 10:28 | ECG_ITS ---
Measurements Intervals [place] Rate: 61 P: 83 [place]: 150 QRS: -22 QRSD: 94 T: 63 QT: 414 QTc: 417 Interpretive Statements SINUS RHYTHM ATRIAL PREMATURE COMPLEXES ANTEROSEPTAL INFARCT, AGE INDETERMINATE BASELINE ARTIFACT- I, II, AVR ABNORMAL ECG Electronically Signed On 06-02-2020 10:43:18 CDT by Marlon Joe D.O.
[2020-06-02 10:47] LABS: Basophils Percent Auto 0.2 % (0.2-1.2); Eosinophils Percent Auto 0.2 % (0-4.4); Hematocrit 28.5 % (37.0-47.0); Hemoglobin 9.6 g/dL (12.0-15.0); Immature Granulocyte Absolute 0.02 K/mm3 (0.00-0.031); Immature Granulocyte Percent A 0.4 % (0-0.5); Lymphocytes Absolute Auto 0.62 K/mm3 (0.9-3.2); Lymphocytes Percent Auto 13.3 % (18.3-44.2); Mean Corpuscular HGB Conc 33.7 g/dl (32-36); Mean Corpuscular Hemoglobin 32.9 pg (26-34); Mean Corpuscular Volume 97.6 fl (80-100); Mean Platelet Volume 9.4 fl (7.4-10.4); Monocytes Absolute Auto 0.5 K/mm3 (0.1-0.6); Monocytes Percent Auto 11.3 % (2.6-8.5); Neutrophils Absolute Auto 3.5 K/mm3 (1.3-6.7); Neutrophils Percent Auto 74.6 % (45.5-73.1); Platelet Count Result 265 k/mm3 (150-375); Red Blood Count 2.92 M/mm3 (4.2-5.4); Red Cell Distribution Width 11.2 % (11.5-14.5); White Blood Count 4.7 K/mm3 (4.5-10.0)
[2020-06-02 11:00] LABS: Alanine Aminotransferase 16 U/L (4-35); Albumin Level 4.3 g/dL (3.5-5.1); Alkaline Phosphatase 64 U/L (38-126); Anion Gap 10 mmol/L (8-16); Aspartate Amino Transferase 36 U/L (14-36); Bilirubin,Total 0.5 mg/dL (0.2-1.3); Blood Urea Nitrogen 32 mg/dL (7-17); Calcium 9.1 mg/dL (8.4-10.2); Carbon Dioxide 26 mmol/L (22-30); Chloride 88 mmol/L (98-107); Estimated CRCL calculation 21 ml/min; Estimated Glomerular Filt Rate 36; Glucose 100 mg/dL (65-105); Potassium 4.7 mmol/L (3.4-5.0); Sodium 124 mmol/L (137-145)
[2020-06-02 11:12] LABS: Troponin I < 0.012 ng/mL (0.000-0.034)
[2020-06-02] MEDS: FAMOTIDINE 20 MG/2 ML VIAL IV PUSH (11:12)
[2020-06-02] MEDS: MAG HYDROX/AL HYDROX/SIMETH 30 ML UDC PO (11:12)
[2020-06-02] MEDS: LIDOCAINE HCL 2% VISC SOLN 15 ML UDC 20 ML PO (11:12)
[2020-06-02] MEDS: METOCLOPRAMIDE HCL INJ 10 MG/2 ML VIAL IV PUSH (11:12)
[2020-06-02] MEDS: diphenhydrAMINE HCl INJ 50 MG/ML VIAL 25 MG IV PUSH (11:12)
[2020-06-02 11:30] VITALS: BP 153/78; PULSE 87; RESP 26; O2SAT 97
[2020-06-02 12:51] LABS: Add Urine Microscopic? YES; Appearance Urine Clear (Clear); Bacteria Urine Trace /hpf; Bilirubin Urine Negative (Negative); Color Urine Yellow (Yellow); Glucose Urine UA Negative (Negative); Ketones Urine Negative (Negative); Leukocyte Esterase Ur 3+ LEU/UL (Negative); Mucus Urine Rare /lpf; Nitrate Urine Negative (Negative); Protein Urine Negative (Negative); RBC Urine 0-2 /hpf (0-2); Specific Grav Ur 1.008 (1.001-1.035); Squamous Epithelial Cell Urine Moderate /hpf (Few); Urobilinogen Urine Negative mg/dL (<2.0); WBC Urine 16-20 /hpf
[2020-06-02 12:55] LABS: Blood Urine Negative (Negative)
--- NOTE | 2020-06-02 12:59 | ED.GENADULT ---
HPI - General Adult General Chief complaint: Chest Pain <Everardo John PA-C - Last Filed: 06/02/20 13:05> Stated complaint: Pain, Chest into Stomach <Everardo John PA-C - Last Filed: 06/02/20 13:05> Time Seen by Provider: 06/02/20 10:09 <Everardo John PA-C - Last Filed: 06/02/20 13:05> Source: patient, family and old records reviewed <Everardo John PA-C - Last Filed: 06/02/20 13:05> Mode of arrival: ambulatory <ZACKARY Kidd Last Filed: 06/02/20 13:05> Limitations: no limitations <Everardo John PA-C - Last Filed: 06/02/20 13:05> History of Present Illness HPI narrative: Patient is a 79-year-old female who presents with pain from the throat down into the pelvic region which she has been experiencing chronically and followed by cardiology and primary care. Patient has had frequent visits to the emergency department of [facility] for the same symptoms with thorough evaluation with no etiology. Patient is seeing gastroenterology and other specialist for this as well. Patient notes for the last week she has been having up to 15 loose stools per day. Patient denies fever vomiting or URI symptoms. Symptoms worsen with any activity movement. Patient is scheduled to see primary care on <Everardo John PA-C - Last Filed: 06/02/20 13:05> Related Data Home medications: Home Medications Medication Instructions Recorded Confirmed B Complex Plus Vitamin C 150 mg PO DAILY 09/01/19 05/18/20 Entresto 1 tablet PO Q12H 09/01/19 05/18/20 albuterol sulfate 2 puff INHALATION Q4-6H PRN 09/01/19 05/18/20 alprazolam 0.5 mg PO TID PRN 09/01/19 05/18/20 ascorbic acid (vitamin C) [Vitamin 500 mg PO DAILY 09/01/19 05/18/20 C With Debora Hips] cholecalciferol (vitamin D3) 5,000 unit PO DAILY 09/01/19 05/18/20 clopidogrel 75 mg PO DAILY 09/01/19 05/18/20 furosemide 40 mg PO DAILY 09/01/19 05/18/20 hydralazine 10 mg PO TID 09/01/19 05/18/20 levothyroxine 125 mcg PO DAILY 09/01/19 05/18/20 metoprolol succinate 50 mg PO DAILY 09/01/19 05/18/20 nitroglycerin 0.4 mg SUBLINGUAL Q5M PRN 09/01/19 05/18/20 pantoprazole 40 mg PO DAILY 09/01/19 05/18/20 trazodone 100 mg PO HS 09/01/19 05/18/20 ferrous sulfate 325 mg PO DAILY 09/06/19 05/18/20 prednisolone acetate 1 % RIGHTEYE DAILY 09/06/19 05/18/20 acetaminophen 500 mg PO Q4-6H PRN 12/01/19 05/18/20 spironolactone 25 mg PO DAILY 12/01/19 05/18/20 atorvastatin 40 mg PO DAILY 12/12/19 05/18/20 famotidine 20 mg PO BID 03/20/20 05/18/20 gabapentin 600 mg PO DAILY 03/20/20 05/18/20 oxybutynin chloride 10 mg PO DAILY 03/20/20 05/18/20 potassium chloride 05/22/20 acyclovir 05/31/20 topiramate 05/31/20 <Everardo John PA-C - Last Filed: 06/02/20 13:05> Allergies/adverse reactions: Allergies Allergy/AdvReac Type Severity Reaction Status Date / Time Penicillins Allergy Unknown Rash Verified 06/02/20 10:12 <Everardo John PA-C - Last Filed: 06/02/20 13:05> Review of Systems Review of Systems: All systems reviewed & are unremarkable except as noted in HPI and below <Everardo John PA-C - Last Filed: 06/02/20 13:05> [facility] Past Medical History Medical History: Medical History Chronic anemia Chronic kidney disease, stage 3 Congestive heart failure Systolic and diastolic congestive heart failure Echo 11/27 showed EF 50%. Echo 01/14/2019: EF measured at 39%. September 2018 EF was 25%. Echo 12/02/2019 EF 50-55%. Grade 1 diastolic function. Coronary artery disease With multivessel surgical revascularization with PCI at [place] October 2017. Cardiac catheterization 10/17/2018-mild preserved intra-stent luminal diameter Current use of journey lineman anticoagulation Depression with anxiety Detached retina Right-sided, x2. Frequent headaches GERD (gastroesophageal reflux disease) With history of esophageal stricture requiring dilatation. History of GI bleed
[2020-06-02 13:33] VITALS: BP 138/67; PULSE 63; RESP 15; O2SAT 99
== END 2020-06-02 13:35 | disposition home or self-care (01) ==
PROVIDERS: Emergency Medicine Emergency Medical Services; Emergency Provider General Practice; PCP Family Medicine
DX: R07.9 Chest pain, unspecified (principal); R10.9 Unspecified abdominal pain; I13.0 Hypertensive heart and chronic kidney disease with heart failure and stage 1 through stage 4 chronic kidney disease, or unspecified chronic kidney disease; N18.3 Chronic kidney disease, stage 3 (moderate); I50.40 Unspecified combined systolic (congestive) and diastolic (congestive) heart failure; D64.9 Anemia, unspecified; I25.10 Atherosclerotic heart disease of native coronary artery without angina pectoris; F41.9 Anxiety disorder, unspecified; F32.9 Major depressive disorder, single episode, unspecified; K21.9 Gastro-esophageal reflux disease without esophagitis; E78.5 Hyperlipidemia, unspecified; G47.30 Sleep apnea, unspecified; I48.91 Unspecified atrial fibrillation; G25.81 Restless legs syndrome
CPT/HCPCS: 36415; 80053; 81001; 84484; 85025; 87086; 87088; 93005; 96361; 96374; 96375; 99284; A9270; J0131; J1200; J2765

== ENCOUNTER 2020-06-04 13:06 | Emergency (ER) | payer MEDICARE, SELFPAY ==
[2020-06-04 13:14] VITALS: BP 142/68; PULSE 58; RESP 18; TEMP 36.7; O2SAT 96
[2020-06-04 13:32] LABS: Basophils Percent Auto 0.2 % (0.2-1.2); Hematocrit 27.6 % (37.0-47.0); Hemoglobin 9.2 g/dL (12.0-15.0); Immature Granulocyte Absolute 0.02 K/mm3 (0.00-0.031); Immature Granulocyte Percent A 0.4 % (0-0.5); Lymphocytes Absolute Auto 0.48 K/mm3 (0.9-3.2); Lymphocytes Percent Auto 10.8 % (18.3-44.2); Mean Corpuscular HGB Conc 33.3 g/dl (32-36); Mean Corpuscular Hemoglobin 32.9 pg (26-34); Mean Corpuscular Volume 98.6 fl (80-100); Mean Platelet Volume 9.1 fl (7.4-10.4); Monocytes Absolute Auto 0.4 K/mm3 (0.1-0.6); Neutrophils Absolute Auto 3.6 K/mm3 (1.3-6.7); Neutrophils Percent Auto 79.6 % (45.5-73.1); Platelet Count Result 267 k/mm3 (150-375); Red Cell Distribution Width 11.2 % (11.5-14.5); White Blood Count 4.5 K/mm3 (4.5-10.0)
[2020-06-04 13:53] LABS: Alanine Aminotransferase 14 U/L (4-35); Albumin Level 4.1 g/dL (3.5-5.1); Alkaline Phosphatase 65 U/L (38-126); Anion Gap 11 mmol/L (8-16); Aspartate Amino Transferase 30 U/L (14-36); Bilirubin,Total 0.3 mg/dL (0.2-1.3); Blood Urea Nitrogen 26 mg/dL (7-17); Calcium 8.7 mg/dL (8.4-10.2); Carbon Dioxide 26 mmol/L (22-30); Chloride 90 mmol/L (98-107); Estimated CRCL calculation 21 ml/min; Estimated Glomerular Filt Rate 36; Glucose 106 mg/dL (65-105); Lipase 128 U/L (23-300); Sodium 127 mmol/L (137-145)
--- NOTE | 2020-06-04 15:30 | ED.ABDPAIN ---
HPI - Abdominal Pain General Chief Complaint: Abdominal Pain Stated Complaint: upper abd pain Time Seen by Provider: 06/04/20 15:29 History of Present Illness HPI narrative: Severe burning pain in the chest radiating to the abdomen for the past few hours. She has had this pain enumerable times in the past and has been seen here several times already this month. She was admitted and assessed by cardiology very recently and they did not believe that her pain was cardiac related. Related Data Home Medications Medication Instructions Recorded Confirmed B Complex Plus Vitamin C 150 mg PO DAILY 09/01/19 06/05/20 Entresto 1 tablet PO Q12H 09/01/19 06/05/20 albuterol sulfate 2 puff INHALATION Q4-6H PRN 09/01/19 06/05/20 alprazolam 0.5 mg PO TID PRN 09/01/19 06/05/20 ascorbic acid (vitamin C) [Vitamin 500 mg PO DAILY 09/01/19 06/05/20 C With Debora Hips] cholecalciferol (vitamin D3) 5,000 unit PO DAILY 09/01/19 06/05/20 clopidogrel 75 mg PO DAILY 09/01/19 06/05/20 furosemide 40 mg PO DAILY 09/01/19 06/05/20 hydralazine 10 mg PO TID 09/01/19 06/05/20 levothyroxine 125 mcg PO DAILY 09/01/19 06/05/20 metoprolol succinate 50 mg PO DAILY 09/01/19 06/05/20 nitroglycerin 0.4 mg SUBLINGUAL Q5M PRN 09/01/19 06/05/20 pantoprazole 40 mg PO DAILY 09/01/19 06/05/20 trazodone 100 mg PO HS 09/01/19 06/05/20 ferrous sulfate 325 mg PO DAILY 09/06/19 06/05/20 prednisolone acetate 1 % RIGHTEYE DAILY 09/06/19 06/05/20 acetaminophen 500 mg PO Q4-6H PRN 12/01/19 06/05/20 spironolactone 25 mg PO DAILY 12/01/19 06/05/20 atorvastatin 40 mg PO DAILY 12/12/19 06/05/20 famotidine 20 mg PO BID 03/20/20 06/05/20 gabapentin 600 mg PO DAILY 03/20/20 06/05/20 oxybutynin chloride 10 mg PO DAILY 03/20/20 06/05/20 acyclovir 1,000 mg PO DAILY 05/31/20 06/05/20 Allergies Allergy/AdvReac Type Severity Reaction Status Date / Time Penicillins Allergy Unknown Rash Verified 06/05/20 19:11 Review of Systems Review of Systems: All systems reviewed & are unremarkable except as noted in HPI and below Constitutional: Constitutional: Denies fever(s) Cardiovascular: Cardiovascular: Reports chest pain Respiratory: Respiratory: Reports dyspnea Gastrointestinal: Gastrointestinal: Reports abdominal pain and Denies vomiting Genitourinary: Genitourinary: Denies dysuria Neurologic: Reports weakness PMFSH Past Medical History Medical History Chronic anemia Chronic kidney disease, stage 3 Congestive heart failure Systolic and diastolic congestive heart failure Echo 11/27 showed EF 50%. Echo 01/14/2019: EF measured at 39%. September 2018 EF was 25%. Echo 12/02/2019 EF 50-55%. Grade 1 diastolic function. Coronary artery disease With multivessel surgical revascularization with PCI at [place] October 2017. Cardiac catheterization 10/17/2018-mild preserved intra-stent luminal diameter Current use of exterminator helper anticoagulation Depression with anxiety Detached retina Right-sided, x2. Frequent headaches GERD (gastroesophageal reflux disease) With history of esophageal stricture requiring dilatation. History of GI bleed History of rectal polyps Hyperlipidemia Hypertension Hypothyroidism TSH in November 2019 was a bit low, with normal T4. IBS (irritable bowel syndrome) Ischemic cardiomyopathy Mitral valve prolapse Myasthenia gravis Questionable history of. Obstructive sleep apnea Ocular herpes zoster History of shingles to the left eye, on chronic antiviral therapy. Paroxysmal atrial fibrillation No longer on long-term anticoagulation due to history of falls. Peripheral neuropathy Rectal polyp Restless leg syndrome Shingles Solitary rectal ulcer syndrome Stage III chronic kidney disease Surgical History Surgical History Status post appendectomy Status post bilateral hip replacements Status post bilateral knee replacements Status post breast biopsy Bilat
[2020-06-04] MEDS: PANTOPRAZOLE SODIUM IV 40 MG VIAL IV PUSH (15:53)
[2020-06-04] MEDS: WATER, STERILE FOR INJECTION 10 ML VIAL XX (15:53)
[2020-06-04 16:28] LABS: Add Urine Microscopic? YES; Appearance Urine Clear (Clear); Bacteria Urine 4+ /hpf; Bilirubin Urine Negative (Negative); Color Urine Yellow (Yellow); Glucose Urine UA Negative (Negative); Ketones Urine Negative (Negative); Leukocyte Esterase Ur 2+ LEU/UL (Negative); Mucus Urine Rare /lpf; Nitrate Urine Negative (Negative); Protein Urine Negative (Negative); Specific Grav Ur 1.012 (1.001-1.035); Squamous Epithelial Cell Urine Occasional /hpf (Few); Urobilinogen Urine Negative mg/dL (<2.0); WBC Urine 16-20 /hpf
[2020-06-04 16:29] LABS: Blood Urine Negative (Negative)
[2020-06-04] MEDS: NITROFURANTOIN MONOHYD MACROCR 100 MG CAP PO (17:16)
[2020-06-04 17:42] VITALS: BP 167/73; PULSE 79; RESP 16; TEMP 36.6; O2SAT 98
== END 2020-06-04 17:44 | disposition home or self-care (01) ==
PROVIDERS: Emergency Medicine; Emergency Provider Emergency Medicine; PCP Family Medicine
DX: R10.9 Unspecified abdominal pain (principal); N39.0 Urinary tract infection, site not specified; I13.0 Hypertensive heart and chronic kidney disease with heart failure and stage 1 through stage 4 chronic kidney disease, or unspecified chronic kidney disease; N18.3 Chronic kidney disease, stage 3 (moderate); I50.40 Unspecified combined systolic (congestive) and diastolic (congestive) heart failure; I25.10 Atherosclerotic heart disease of native coronary artery without angina pectoris; K21.9 Gastro-esophageal reflux disease without esophagitis; E87.5 Hyperkalemia; I25.2 Old myocardial infarction; K58.9 Irritable bowel syndrome, unspecified; I34.1 Nonrheumatic mitral (valve) prolapse; G47.33 Obstructive sleep apnea (adult) (pediatric); I48.0 Paroxysmal atrial fibrillation; G62.9 Polyneuropathy, unspecified; G25.81 Restless legs syndrome; Z96.643 Presence of artificial hip joint, bilateral; Z96.653 Presence of artificial knee joint, bilateral; Z98.42 Cataract extraction status, left eye; Z98.41 Cataract extraction status, right eye; Z79.82 Long term (current) use of aspirin; Z87.19 Personal history of other diseases of the digestive system; E03.9 Hypothyroidism, unspecified
CPT/HCPCS: 36415; 80053; 81001; 83690; 85025; 87077; 87086; 87088; 87186; 96374; 99284; A9270; C9113

== ENCOUNTER 2020-06-05 19:01 | Inpatient (IN) | payer MEDICARE, SELFPAY ==
--- NOTE | ~2020-06-05 | NM_ITS ---
EXAMINATION: NM albert stress w perfusion DATE: 06/07/2020 09:47 INDICATION: Coronary artery disease presenting with chest pain and elevated troponin TECHNIQUE: Rest images were obtained following intravenous administration of 10.4 mCi Tc99m tetrofosm in (Myoview). The patient was infused intravenously with Lexiscan (Regadenoson). Then, 32.2 mCi Tc99m tetrofosmin (Myoview) was administered intravenously, and stress images were obtained. Data was tammy nstructed into short axis and horizontal and vertical long axis SPECT images. Gated SPECT images were also obtained. COMPARISON: None. FINDINGS: There is no definite reversible or fixed perfusion abnormality to suggest ischemia or infar ction. There is normal left ventricular chamber size, wall motion and ejection fraction. Left ventr icular ejection fraction measures >70%. IMPRESSION: 1. Normal myocardial perfusion at rest and during stress. 2. Left ventricular ejection fraction measuring >70%. Reviewed, dictated and finalized at location B.
--- NOTE | ~2020-06-05 | XR_ITS ---
EXAMINATION: XR UGI w small bowel DATE: 06/08/2020 12:45 INDICATION: Epigastric and abdominal pain TECHNIQUE: The patient drank thin barium. Conventional supine abdomen radiographs and fluoroscopy of the esophagus, stomach, and small bowel were performed. Fluoroscopy exposure time was 3.2 minutes. Th e DAP for this procedure was 9.3 Gycm2. COMPARISON: None. FINDINGS: UPPER GASTROINTESTINAL SERIES: There is no mass or stricture of the esophagus. Presbyesophagus is noted with delayed emptying of the esophagus into the stomach. Patient was positioned in an upright position to aid esophageal emptying . There is no hiatal hernia. There was no gastroesophageal reflux with provocative maneuvers. The st omach shows a normal folding pattern. SMALL BOWEL SERIES: [employer] radiograph demonstrates multiple pelvic phleboliths as well as a bone island of the left iliac wing. There are changes of bilateral total hip arthroplasty. Cholecystectomy clips are noted in the r ight upper quadrant. Transit time from the stomach to proximal colon was between two and four hours. There is normal caliber and mucosal fold pattern throughout the small bowel. Terminal ileum is normal . Diverticulosis of the colon is noted. IMPRESSION: 1. Presbyesophagus with slightly delayed esophageal emptying but no mass or stricture identified. 2. Unremarkable small bowel follow-through. Reviewed, dictated and finalized at location A. IMPRESSION: 1. Presbyesophagus with slightly delayed esophageal emptying but no mass or str icture identified. 2. Unremarkable small bowel follow-through.
--- NOTE | ~2020-06-05 | XR_ITS ---
XR chest 2V 06/05/2020 19:31 Indication: Chest pain. CHF. Hypertension. Procedure: AP portable chest Comparison: Comparison to multiple prior studies sequentially, with oldest reviewed study dated 06/2020. Findings: Cardiomegaly. No focal air space disease, pulmonary edema, pleural effusion or suspected pn eumothorax. Coronary artery stents are present. There is atherosclerosis and ectasia of the aorta. Th e lungs are hyperinflated which is consistent with, but not diagnostic of chronic obstructive pulmona ry disease. There are advanced degenerative changes of the glenohumeral joints. Impression: 1: No acute cardiopulmonary disease. Reviewed, dictated and finalized at location A. Impression: 1: No acute cardiopulmonary disease.
--- NOTE | 2020-06-05 19:02 | ECG_ITS ---
Measurements Intervals [place] Rate: 77 P: 84 [place]: 149 QRS: 24 QRSD: 94 T: 66 QT: 412 QTc: 469 Interpretive Statements SINUS RHYTHM ATRIAL PREMATURE COMPLEX VOLTAGE CRITERIA FOR LVH ANTEROSEPTAL INFARCT, AGE INDETERMINATE BASELINE ARTIFACT- I, II, AVR, AVL, AVF, V2 ABNORMAL ECG Electronically Signed On 06-06-2020 7:29:58 CDT by Marlon Joe D.O.
[2020-06-05 19:06] VITALS: BP 157/97; PULSE 79; RESP 22; TEMP 37.1; O2SAT 97
[2020-06-05] MEDS: ASPIRIN 81 MG CHEWABLE TABLET 324 MG PO (19:25)
[2020-06-05 19:32] LABS: Hematocrit 26.9 % (37.0-47.0); Hemoglobin 9.2 g/dL (12.0-15.0); Immature Granulocyte Absolute 0.02 K/mm3 (0.00-0.031); Immature Granulocyte Percent A 0.4 % (0-0.5); Lymphocytes Absolute Auto 0.79 K/mm3 (0.9-3.2); Mean Corpuscular HGB Conc 34.2 g/dl (32-36); Mean Corpuscular Volume 96.4 fl (80-100); Mean Platelet Volume 9.1 fl (7.4-10.4); Monocytes Absolute Auto 0.6 K/mm3 (0.1-0.6); Neutrophils Absolute Auto 3.3 K/mm3 (1.3-6.7); Neutrophils Percent Auto 70.6 % (45.5-73.1); Platelet Count Result 278 k/mm3 (150-375); Red Blood Count 2.79 M/mm3 (4.2-5.4); Red Cell Distribution Width 11.2 % (11.5-14.5); White Blood Count 4.7 K/mm3 (4.5-10.0)
[2020-06-05 19:39] LABS: Anion Gap 12 mmol/L (8-16); Blood Urea Nitrogen 25 mg/dL (7-17); Calcium 8.7 mg/dL (8.4-10.2); Carbon Dioxide 25 mmol/L (22-30); Chloride 87 mmol/L (98-107); Estimated Glomerular Filt Rate 29; Glucose 116 mg/dL (65-105); Potassium 4.2 mmol/L (3.4-5.0); Sodium 124 mmol/L (137-145)
[2020-06-05 19:49] LABS: INR 1.1; Prothrombin Time 13.8 Seconds (11.1-14.7)
[2020-06-05 19:50] LABS: Partial Thromboplastin Time 26.7 SECONDS (22.3-36.8)
[2020-06-05 19:57] LABS: Troponin I 0.108 ng/mL (0.000-0.034)
--- NOTE | 2020-06-05 20:20 | ED.GENADULT ---
HPI - General Adult General Chief complaint: Chest Pain Stated complaint: real bad chest pain Time Seen by Provider: 06/05/20 20:01 Source: patient Mode of arrival: ambulatory Limitations: no limitations History of Present Illness HPI narrative: This patient is an 79 year old female who presents for evaluation of chest pain and abdominal pain. Patient reports constant burning pain located upper chest and radiates to her abdomen. She reports her pain has gotten worse so she came to the ER. She has nausea and her states she normally does not have nausea. She was evaluated in the ER 3 days ago for this pain. She has been taking viscous lidocaine and she reports some improvement. She has associated sob but denies fever, or cough. Related Data Home Medications Medication Instructions Recorded Confirmed B Complex Plus Vitamin C 150 mg PO DAILY 09/01/19 06/05/20 Entresto 1 tablet PO Q12H 09/01/19 06/05/20 albuterol sulfate 2 puff INHALATION Q4-6H PRN 09/01/19 06/05/20 alprazolam 0.5 mg PO TID PRN 09/01/19 06/05/20 ascorbic acid (vitamin C) [Vitamin 500 mg PO DAILY 09/01/19 06/05/20 C With Debora Hips] cholecalciferol (vitamin D3) 5,000 unit PO DAILY 09/01/19 06/05/20 clopidogrel 75 mg PO DAILY 09/01/19 06/05/20 furosemide 40 mg PO DAILY 09/01/19 06/05/20 hydralazine 10 mg PO TID 09/01/19 06/05/20 levothyroxine 125 mcg PO DAILY 09/01/19 06/05/20 metoprolol succinate 50 mg PO DAILY 09/01/19 06/05/20 nitroglycerin 0.4 mg SUBLINGUAL Q5M PRN 09/01/19 06/05/20 pantoprazole 40 mg PO DAILY 09/01/19 06/05/20 trazodone 100 mg PO HS 09/01/19 06/05/20 ferrous sulfate 325 mg PO DAILY 09/06/19 06/05/20 prednisolone acetate 1 % RIGHTEYE DAILY 09/06/19 06/05/20 acetaminophen 500 mg PO Q4-6H PRN 12/01/19 06/05/20 spironolactone 25 mg PO DAILY 12/01/19 06/05/20 atorvastatin 40 mg PO DAILY 12/12/19 06/05/20 famotidine 20 mg PO BID 03/20/20 06/05/20 gabapentin 600 mg PO DAILY 03/20/20 06/05/20 oxybutynin chloride 10 mg PO DAILY 03/20/20 06/05/20 acyclovir 1,000 mg PO DAILY 05/31/20 06/05/20 Allergies Allergy/AdvReac Type Severity Reaction Status Date / Time Penicillins Allergy Unknown Rash Verified 06/05/20 19:11 Review of Systems Review of Systems: All systems reviewed & are unremarkable except as noted in HPI and below Constitutional: Constitutional: Denies chills and Denies fever(s) Cardiovascular: Cardiovascular: Reports chest pain Respiratory: Respiratory: Reports dyspnea Gastrointestinal: Gastrointestinal: Reports abdominal pain, Reports nausea and Reports vomiting PMFSH Past Medical History Medical History Chronic anemia Chronic kidney disease, stage 3 Congestive heart failure Systolic and diastolic congestive heart failure Echo 11/27 showed EF 50%. Echo 01/14/2019: EF measured at 39%. September 2018 EF was 25%. Echo 12/02/2019 EF 50-55%. Grade 1 diastolic function. Coronary artery disease With multivessel surgical revascularization with PCI at [place] October 2017. Cardiac catheterization 10/17/2018-mild preserved intra-stent luminal diameter Current use of meterman anticoagulation Depression with anxiety Detached retina Right-sided, x2. Frequent headaches GERD (gastroesophageal reflux disease) With history of esophageal stricture requiring dilatation. History of GI bleed History of rectal polyps Hyperlipidemia Hypertension Hypothyroidism TSH in November 2019 was a bit low, with normal T4. IBS (irritable bowel syndrome) Ischemic cardiomyopathy Mitral valve prolapse Myasthenia gravis Questionable history of. Obstructive sleep apnea Ocular herpes zoster History of shingles to the left eye, on chronic antiviral therapy. Paroxysmal atrial fibrillation No longer on long-term anticoagulation due to history of falls. Peripheral neuropathy Rectal polyp Restless leg syndrome Shingles Solitary rectal ulcer syndrome Surgical History Surgical
[2020-06-05] MEDS: NITROGLYCERIN OINTMENT 1 INCH DOSE TRANSDERM (20:26)
[2020-06-05] MEDS: SODIUM CHLORIDE 0.9% IV 1,000 ML 999 ML IV CONT (20:26)
[2020-06-05] MEDS: ONDANSETRON INJ 4 MG/2 ML VIAL IV PUSH (20:26)
[2020-06-05] MEDS: BELLADONNA ALK/PHENOB ELIX 10 ML, MAG HYDROX/ALUMINUM HYD/SIMETH 30 ML, LIDOCAINE HCL 2... PO (20:26)
[2020-06-05 20:27] VITALS: BP 170/97; PULSE 96; RESP 24; O2SAT 98
--- NOTE | 2020-06-05 21:12 | PM.IMHP ---
H&P: HPI History of Present Illness Date/Time: 06/05/20 21:12 Chief complaint: chest pain, elevated troponin, hyponatremia Narrative: Dhara Harry is a 79 year old female with known CAD+ s/p #4 stents placed about 3 years ago, CKD stage 3, CHF, and paroxysmal atrial fibrillation who is well known to our hospitalist service for multiple admissions over the past few years including just two weeks ago for the same abdominal/chest pain that she presents with today. She admits that she has had this discomfort chronically and no one has been able to pinpoint exactly the reason for this. She reports that she has had burning, pressure like epigastric pain that radiates up towards her chest and towards her back since this morning. She was also seen in the ER 3 days ago for similar discomfort. Her pain has been constant and worsening as the day went on. Associated symptoms include nausea. She denies any eating significant today before her pain started. She reports that her last EGD was about [address] Coates which was unremarkable at that time. She denies any fevers, chills, cough, palpitations, vomiting, diarrhea, rectal bleeding or black stools. She was treated with a GI cocktail in the ER tonight which helped slightly. Routines labs were obtained which demonstrated a mildly elevated troponin. ER provider has consulted Cardiology, Dr. Aguila and has asked that we admit the patient to the hospital so they can evaluate her in the morning. The patient continues to have chronic hyponatremia which appears to be unchanged. No other complaints. Review of Systems Review of Systems: All systems reviewed & are unremarkable except as noted in HPI and below PMFSH Past Medical History Medical History Chronic anemia Chronic kidney disease, stage 3 Congestive heart failure Systolic and diastolic congestive heart failure Echo 11/27 showed EF 50%. Echo 01/14/2019: EF measured at 39%. September 2018 EF was 25%. Echo 12/02/2019 EF 50-55%. Grade 1 diastolic function. Coronary artery disease With multivessel surgical revascularization with PCI at [facility] October 2017. Cardiac catheterization 10/17/2018-mild preserved intra-stent luminal diameter Current use of custodial anticoagulation Depression with anxiety Detached retina Right-sided, x2. Frequent headaches GERD (gastroesophageal reflux disease) With history of esophageal stricture requiring dilatation. History of GI bleed History of rectal polyps Hyperlipidemia Hypertension Hypothyroidism TSH in November 2019 was a bit low, with normal T4. IBS (irritable bowel syndrome) Ischemic cardiomyopathy Mitral valve prolapse Myasthenia gravis Questionable history of. Obstructive sleep apnea Ocular herpes zoster History of shingles to the left eye, on chronic antiviral therapy. Paroxysmal atrial fibrillation No longer on long-term anticoagulation due to history of falls. Peripheral neuropathy Rectal polyp Restless leg syndrome Shingles Solitary rectal ulcer syndrome Surgical History Surgical History Status post appendectomy Status post bilateral hip replacements Status post bilateral knee replacements Status post breast biopsy Bilateral with benign histology. Status post carpal tunnel release Status post cataract extraction Bilateral. Status post cholecystectomy Status post laminectomy Lumbar spine. Status post LASIK surgery Status post rotator cuff repair Status post tonsillectomy Family History Family History Mother Cerebrovascular accident Diabetes mellitus Hypertension Sibling Cerebrovascular accident Other Acute myocardial infarction Social History Social History Social History: Pt would like her , Annie to be her decision maker if she is un
[2020-06-05 21:30] VITALS: BP 179/91; PULSE 86; RESP 18; O2SAT 98
[2020-06-05 22:18] VITALS: BMI 18.2
[2020-06-05 22:26] VITALS: BP 170/88; PULSE 86; RESP 18; TEMP 36.2; O2SAT 97
[2020-06-05 22:27] VITALS: BMI 16.0
--- NOTE | 2020-06-05 23:00 | ADMGEN ---
This patient, Dhara Harry, was admitted to IMU Room 209-01 at 2210. Patient/family oriented to hospital policies and general routines including ID bracelet, bed and alarms, visiting hours, pain management, procedures, bathroom and other care routines, personal items, smoking policy, room service/diet, and visiting hours. Valuables list has been completed. Information on how to activate the Rapid Response Team has been discussed. Patient/Family are encouraged to report perceived risks to care and to ask questions if they do not understand what they are told or what they should do.
[2020-06-05 23:06] VITALS: PULSE 87
[2020-06-05 23:09] LABS: Troponin I 0.158 ng/mL (0.000-0.034)
[2020-06-05] MEDS: MORPHINE SULFATE 2 MG/ML INJ IV PUSH (23:52)
[2020-06-06] VITALS (13 sets, daily range): BP systolic 116–180; BP diastolic 60–85; PULSE 63–113; RESP 16–18; TEMP 36–36.8; O2SAT 94–100
[2020-06-06] MEDS: SALIVA SUBSTITUTE COMBO RINSE 237 ML BOTTLE 15 ML PO (01:03)
[2020-06-06] MEDS: MORPHINE SULFATE 2 MG/ML INJ IV PUSH (01:04)
[2020-06-06 02:05] LABS: Troponin I 0.157 ng/mL (0.000-0.034)
[2020-06-06 05:26] LABS: Anion Gap 5 mmol/L (8-16); Blood Urea Nitrogen 20 mg/dL (7-17); Calcium 8.3 mg/dL (8.4-10.2); Carbon Dioxide 26 mmol/L (22-30); Chloride 95 mmol/L (98-107); Estimated CRCL calculation 22 ml/min; Estimated Glomerular Filt Rate 36; Glucose 77 mg/dL (65-105); Potassium 3.9 mmol/L (3.4-5.0); Sodium 126 mmol/L (137-145)
[2020-06-06] MEDS: LEVOTHYROXINE SODIUM INJ 100 MCG/5 ML VIAL 62.5 MCG IV PUSH (06:01)
[2020-06-06 06:28] LABS: Thyroid Stimulating Hormone Reflex 0.048 uIU/mL (0.465-4.68)
--- NOTE | 2020-06-06 08:58 | WPDGICN ---
Assessment and Plan Assessment and plan (1) Atypical chest pain: Code(s): R07.89 - Other chest pain Status: Acute (2) Abdominal pain: Code(s): R10.9 - Unspecified abdominal pain Status: Acute Assessment and Plan: Etiology of abdominal pain remains unclear. Patient is on undergone several colonoscopy needs an EGD to evaluate in the past. Currently maintained on high-dose proton pump inhibitor therapy for possible GE reflux. Would recommend conservative management at this time and supportive care will follow with you. (3) Paroxysmal atrial fibrillation: Code(s): I48.0 - Paroxysmal atrial fibrillation Status: Chronic (4) Current use of shelter anticoagulation: Code(s): Z79.01 - roasterman (current) use of anticoagulants Status: Acute (5) Solitary rectal ulcer syndrome: Code(s): K62.6 - Ulcer of anus and rectum Status: Acute Assessment and Plan: Patient known to have a rectal ulcer that is nonhealing. This may contribute to any occult blood in stool and potentially contribute to anemia. No evidence for active bleeding despite anticoagulation. Plan is to continue stool softeners. Follow-up endoscopy only should progressive decline in hemoglobin or active bleeding be identified. GI Consult Note Consult date/time: 06/06/20 08:58 HPI: Dhara Harry is a 79 year old female I am asked to see at the request of the hospitalist service. Patient has a long history of abdominal and chest pains. patient has been to the emergency room on rather frequent basis. She complains of pain in the abdomen but primarily in the chest she describes is a searing pain apparently is not present constantly but she does go to the ER rather frequently. Extensive workup has been rather noncontributory in the past she has been followed by cardiology service on a routine basis. She has had multiple colonoscopies in EGD in the past to evaluate this pain. In the past she was known to have a solitary rectal ulcer that has been poorly healing. She has been treated for GE reflux with proton pump inhibitor therapy. She denies any recent bleeding. Her appetite has been normal. She eats without difficulty. Her bowel habits are reported to be normal at this time. Patient denies any black or bloody stools. Review of Systems Review of Systems: All systems reviewed & are unremarkable except as noted in HPI and below [facility] Past Medical History Medical History Chronic anemia Chronic kidney disease, stage 3 Congestive heart failure Systolic and diastolic congestive heart failure Echo 11/27 showed EF 50%. Echo 01/14/2019: EF measured at 39%. September 2018 EF was 25%. Echo 12/02/2019 EF 50-55%. Grade 1 diastolic function. Coronary artery disease With multivessel surgical revascularization with PCI at [place] October 2017. Cardiac catheterization 10/17/2018-mild preserved intra-stent luminal diameter Current use of shelter anticoagulation Depression with anxiety Detached retina Right-sided, x2. Frequent headaches GERD (gastroesophageal reflux disease) With history of esophageal stricture requiring dilatation. History of GI bleed History of rectal polyps Hyperlipidemia Hypertension Hypothyroidism TSH in November 2019 was a bit low, with normal T4. IBS (irritable bowel syndrome) Ischemic cardiomyopathy Mitral valve prolapse Myasthenia gravis Questionable history of. Obstructive sleep apnea Ocular herpes zoster History of shingles to the left eye, on chronic antiviral therapy. Paroxysmal atrial fibrillation No longer on long-term anticoagulation due to history of falls. Peripheral neuropathy Rectal polyp Restless leg syndrome Shingles Solitary rectal ulcer syndrome Surgical History Surgical History Status post appendectomy Status post bilateral hip replacemen
[2020-06-06] MEDS: PANTOPRAZOLE SODIUM IV 40 MG VIAL IV PUSH (09:08)
--- NOTE | 2020-06-06 09:26 | WPDCN ---
Assessment and Plan Assessment and plan (1) Chest pain: Code(s): R07.9 - Chest pain, unspecified Status: Acute Assessment and Plan: Poorly described chest pain but probably unstable angina in view of the elevated troponins. TNG prn Lovenox today X 1 Repeat EKG Lexiscan tmr (vs cath; will discuss w/ Dr. Aj who knows this pt well. Not a great candidate for cath/PCI in view of frailty, CKD stage 3 and anemia.) (2) CAD (coronary artery disease): Code(s): I25.10 - Atherosclerotic heart disease of [place] coronary artery without angina pectoris Status: Acute Assessment and Plan: Known CAD with history of 3 stents at [facility] in 2016. Follow-up catheterization in October 2018 showed patent stents and no flow-limiting lesions. (3) Anemia: Code(s): D64.9 - Anemia, unspecified Status: Acute Assessment and Plan: Uncertain etiology, chronic. Check stool guaiac. (4) Stage III chronic kidney disease: Code(s): N18.3 - Chronic kidney disease, stage 3 (moderate) Status: Acute Assessment and Plan: (5) Frailty: Code(s): R54 - Age-related physical debility Status: Acute Assessment and Plan: (6) Low TSH level: Code(s): R79.89 - Other specified abnormal findings of blood chemistry Status: Acute Assessment and Plan: Low TSH, not on thyroid meds, may be hyperthyroid, check thyroid panel. DC IV levothyroxine. HPI Data of Consult Date/Time: 06/06/20 09:26 Requesting Physician: Sunday Correa MD Primary Care Provider: Heri Tavarez MD Consult Narrative Narrative: 06/06/2020 Dhara Harry is a 79 year old female number asked to see at the request the hospitalists for our advice and opinion regarding her chest discomfort in consultation. She is normally followed by Dr. Aj. This is a patient 7th ER visit in May For chest and abdominal pain which is going on for months. She was admitted once this month and seen by Dr. Aj, complaining of pain that began in the low chest area down to abdomen and suprapubic region which he did not think represented a cardiac symptom. However, on this occasion, she does have elevated troponins of: 0.108, 0.158 and 0.157. The patient is somewhat of a vague historian with some memory issues but she tells me she has had sharp chest pains going from the chest to her belly, and she had terrible pain Unbearable and pressure with burning discomfort in the chest, epigastric area and belly that she could not get rid of. She tried nitroglycerin with no relief apparently. There was some associated nausea and shortness of breath but no diaphoresis. Today she just does not feel well. The patient has a history of CAD , cardiomyopathy, supraventricular tachycardia as well as PAF. catheterization in 2016 showed multivessel CAD but she was thought to be too frail to undergo CABG and underwent PCI with 3 stents in the Left anterior descending and diagonal as well as circumflex. Catheterization in February 2019 showed no evidence of recurrent coronary lesions. EF had dropped to as low as 24% in the past, but , taking Entresto, metoprolol and hydralazine, echo in November 2019 showed it had improved now EF 50-55% with diastolic dysfunction and mild to moderate AI. She had a small pericardial effusion. She was previously on Eliquis but says someone discontinued it recently. No h/o thyroid dz. Review of Systems Constitutional: Constitutional: Reports weakness Eyes: Eyes: Reports no additional eye complaints ENT: Denies epistaxis Cardiovascular: Cardiovascular: Repor
[2020-06-06 09:56] LABS: Free T4 Free Thyroxine Reflex 1.78 ng/dL (0.78-2.19)
--- NOTE | 2020-06-06 10:22 | ECG_ITS ---
Measurements Intervals [place] Rate: 77 P: 82 VT: 147 QRS: -49 QRSD: 96 T: 39 QT: 419 QTc: 477 Interpretive Statements SINUS RHYTHM FREQUENT ATRIAL PREMATURE COMPLEXES LEFT AXIS DEVIATION ANTEROSEPTAL INFARCT, AGE INDETERMINATE BASELINE ARTIFACT- II, III, AVF ABNORMAL ECG Electronically Signed On 06-06-2020 12:33:13 CDT by Marlon Joe D.O.
[2020-06-06 10:54] LABS: Total Triiodothyronine (T3) 0.79 NG/ML (0.97-1.69)
[2020-06-06] MEDS: ENOXAPARIN 60 MG/0.6 ML SYRINGE 50 MG SUB-Q (10:58)
[2020-06-06] MEDS: NITROGLYCERIN SL 0.4 MG TABLET SUBLINGUAL (10:59)
[2020-06-06] MEDS: BELLADONNA ALK/PHENOB ELIX 10 ML, MAG HYDROX/ALUMINUM HYD/SIMETH 30 ML, LIDOCAINE HCL 2... PO (11:36)
[2020-06-06] MEDS: SPIRONOLACTONE 25 MG TABLET PO (11:38)
[2020-06-06] MEDS: FUROSEMIDE 40 MG TABLET PO (11:38)
[2020-06-06] MEDS: VITAMIN B COMPLEX/VIT C CAPSULE 1 EACH PO (11:38)
[2020-06-06] MEDS: METOPROLOL SUCCINATE EXT REL 50 MG TABCR PO (11:38)
[2020-06-06] MEDS: CLOPIDOGREL BISULFATE 75 MG TABLET PO (11:38)
[2020-06-06] MEDS: PANTOPRAZOLE 40 MG TABLET PO (11:38)
[2020-06-06] MEDS: SACUBITRIL/VALSARTAN 24-26 MG TABLET 1 TAB PO ×2 (11:39→20:40)
[2020-06-06] MEDS: GABAPENTIN 300 MG CAPSULE 600 MG PO (11:39)
[2020-06-06] MEDS: ATORVASTATIN 40 MG TABLET PO (11:39)
[2020-06-06] MEDS: hydrALAZINE 10 MG TABLET PO ×2 (12:56→20:40)
[2020-06-06] MEDS: LOPERAMIDE HCL 2 MG CAPSULE PO (15:23)
[2020-06-06 15:42] LABS: IFOB Positive Control Positive; Immunochemical Fecal Occult Bl Positive (N)
--- NOTE | 2020-06-06 18:25 | PM.IMPN ---
Progress Note: A&P Assessment and Plan (1) Epigastric abdominal pain: Code(s): R10.13 - Epigastric pain Status: Acute Assessment and Plan: The patient has chronic epigastric pain with multiple recent hospital visits and [address] scans since December of this year without any decent explanation. The patient has been admitted secondary to an elevated troponin. GI recommends continuing PPI and no further intervention cardiology has seen and will proceed with nuclear stress test (2) Elevated troponin: Code(s): R79.89 - Other specified abnormal findings of blood chemistry Status: Acute Assessment and Plan: The patient has been been admitted for an elevated troponin and cardiac rule out. Cardiology has seen and as above will proceed with nuclear stress test. (3) Hyponatremia: Code(s): E87.1 - Hypo-osmolality and hyponatremia Status: Chronic Assessment and Plan: Chronic hyponatremia. 126 today. . May be secondary to Lasix use. (4) JOSÉ MIGUEL (acute kidney injury): Code(s): N17.9 - Acute kidney failure, unspecified Status: Acute Assessment and Plan: . Monitor renal function and urine output. creatinine decreased to 1.4 today at her baseline (5) Congestive heart failure: Qualifiers: Heart failure type: unspecified Heart failure chronicity: chronic Qualified Code(s): I50.9 - Heart failure, unspecified Code(s): I50.9 - Heart failure, unspecified Status: Chronic Assessment and Plan: continue home CHF meds. Lasix, hydralazine, beta-wilmer, and Entresto (6) Paroxysmal atrial fibrillation: Code(s): I48.0 - Paroxysmal atrial fibrillation Status: Chronic Assessment and Plan: continue beta wilmer. controlled ventricular response and not on anticoagulated (7) Chronic anemia: Code(s): D64.9 - Anemia, unspecified Status: Chronic Assessment and Plan: chronically runs 9-10 and stable now at 9.2 (8) Hypothyroidism: Qualifiers: Hypothyroidism type: unspecified Qualified Code(s): E03.9 - Hypothyroidism, unspecified Code(s): E03.9 - Hypothyroidism, unspecified Status: Chronic Assessment and Plan: TSH low so will hold levothyroxine. (9) DVT prophylaxis: Code(s): Z29.9 - Encounter for prophylactic measures, unspecified Status: Acute Assessment and Plan: Lovenox given today Subjective Date/time seen: 06/06/20 18:25 Interval history: date of visit 06/06. 79-year-old demented hypertensive white female with known coronary disease and congestive heart failure admitted with recurrent epigastric and substernal chest burning sensation. She has had EGDs there unremarkable and her last cardiac catheterization was in February of 2019 showing no progression of disease and patent stents, she continues to have pain according to her better is 3-4 days with no precipitating factors food a or exertion. Exam Narrative: Exam Narrative: Blood pressure 132/66 pulse 68 regular afebrile pupils equal reactive to light sclera anicteric mouth normal lungs clear CV regular hear no murmurs gallops abdomen soft nontender no masses extremities without edema distal pulses 1+ neuro alert no focal deficits but confused Objective Data Vital Signs Vital Signs: Vital Signs - 24 hr 06/05/20 19:06 06/05/20 20:27 06/05/20 21:30 Temperature 37.1 C Pulse Rate 79 96 86 Respiratory Rate 22 H 24 H 18 Blood Pressure 157/97 H 170/97 H 179/91 H Pulse Oximetry 97 98 98 06/05/20 22:26 06/05/20 23:06 06/06/20 00:00 Temperature 36.2 C L 36.5 C Pulse Rate 86 87 85 Respiratory Rate 18 16 Blood Pressure 170/88 H 180/85 H Pulse Oximetry 97 94 06/06/20 04:00 06/06/20 05:16 06/06/20 08:00 Temperature 36.1 C L 36.4 C Pulse Rate 113 H 90 69 Respiratory Rate 18 18 Blood Pressure 150/74 H 151/72 H Pulse Oximetry 97 100 06/06/20 10:00
[2020-06-06] MEDS: traZODone HCL 50 MG TABLET 100 MG PO (20:40)
[2020-06-07] VITALS (13 sets, daily range): BP systolic 106–120; BP diastolic 50–62; PULSE 65–111; RESP 12–18; TEMP 36.1–36.6; O2SAT 93–98; BMI 16.0
[2020-06-07] MEDS: hydrALAZINE 10 MG TABLET PO ×3 (04:49→20:47)
[2020-06-07] MEDS: ONDANSETRON INJ 4 MG/2 ML VIAL IV PUSH ×2 (04:49→09:32)
[2020-06-07 05:56] LABS: Anion Gap 8 mmol/L (8-16); Blood Urea Nitrogen 23 mg/dL (7-17); Calcium 8.5 mg/dL (8.4-10.2); Carbon Dioxide 24 mmol/L (22-30); Chloride 95 mmol/L (98-107); Estimated CRCL calculation 20 ml/min; Estimated Glomerular Filt Rate 33; Glucose 82 mg/dL (65-105); Sodium 127 mmol/L (137-145)
--- NOTE | 2020-06-07 06:00 | EST_ITS ---
Patient Info Name: Dhara Harry Age: 79 years : 1940 Gender: Female Ht: 68 in Wt: 105 lbs BSA: 1.49 m2 Exam Date: 06/07/2020 8:24 AM Exam Location: [facility] Stress Patient Status: Inpatient Admit Date: 06/05/2020 Staff Ordering Physician: Steff Amador MD Attending Provider: Sunday Correa MD Exercise Technologist: Sammie Sidhu RDCS Exercise Physician: Ntahaniel Aj MD Exam Type: CA stress albert w NM Study Info Indications - elevated troponin - cad R07.9 - Chest pain, unspecified A regadenoson stress test was performed. Summary 1. Normal sinus rhythm. 2. With premature atrial contractions. 3. Evidence of previous anterior HI. 4. No ST segment abnormalities following Lexiscan injection. 5. Clinically and electrocardiographically negative Lexiscan stress test. 6. Patient with chronic chest and abdominal pain not affected significantly by the Lexiscan injection. 7. Myocardial perfusion imaging study to be reported by the Radiology Department. Protocol: Lexiscan Stress ECG Details Stage: REST Duration (min): 4 min : 49 sec HR (bpm): 65 SBP (mmHg): 126 DBP (mmHg): 70 Stage: REST Duration (min): 10 min : 23 sec HR (bpm): 72 SBP (mmHg): 126 DBP (mmHg): 70 Stage: STAGE 1 Duration (min): 0 min : 59 sec HR (bpm): 77 SBP (mmHg): 126 DBP (mmHg): 70 Stage: RECOVERY Duration (min): 1 min : 0 sec HR (bpm): 115 SBP (mmHg): 126 DBP (mmHg): 70 Stage: RECOVERY Duration (min): 2 min : 0 sec HR (bpm): 112 SBP (mmHg): 126 DBP (mmHg): 70 Stage: RECOVERY Duration (min): 3 min : 0 sec HR (bpm): 96 SBP (mmHg): 133 DBP (mmHg): 59 Stage: RECOVERY Duration (min): 4 min : 0 sec HR (bpm): 94 SBP (mmHg): 133 DBP (mmHg): 59 Stage: RECOVERY Duration (min): 5 min : 0 sec HR (bpm): 89 SBP (mmHg): 134 DBP (mmHg): 64 Stage: RECOVERY Duration (min): 5 min : 8 sec HR (bpm): 87 SBP (mmHg): 134 DBP (mmHg): 64 Rest HR: 72 bpm Peak HR: 115 bpm Rest Sys BP: 126 mmHg Peak Sys BP: 134 mmHg Max Pred HR: 140 bpm % Max Pred HR: 82 % Target HR: 119 bpm Max RPP: 15,410 bpm*mmHg BP Response: Normal blood pressure response Termination Reason: Completed protocol Cardiac Symptoms: None Total Time: 1 min : 0 sec Rest Segal BP: 70 mmHg Peak Segal BP: 64 mmHg Total Dose: 0.4 mg Resting ECG Normal sinus rhythm. With premature atrial contractions. Evidence of previous anterior HI. Stress ECG No ST segment abnormalities following Lexiscan injection. Report Signatures
[2020-06-07 06:16] LABS: Potassium 3.8 mmol/L (3.4-5.0)
--- NOTE | 2020-06-07 09:08 | PM.PNCARD ---
Progress Note: A&P Additional Plan 79-year-old woman with the above detailed history of coronary disease and previous high risk PCI eyes. Current symptoms again I seriously doubt are related to her heart disease her symptoms been going on for at least 3 or 4 weeks without convincing evidence of acute myocardial necrosis. Lexiscan stress test has been done this morning those findings are pending. Nathaniel Aj MD [facility] Subjective Date/time seen: date of service:06/07/20 09:08 Interval history: date of visit 06/06. 79-year-old demented hypertensive white female with known coronary disease and congestive heart failure admitted with recurrent epigastric and substernal chest burning sensation. She has had EGDs there unremarkable and her last cardiac catheterization was in February of 2019 showing no progression of disease and patent stents, she continues to have pain according to her better is 3-4 days with no precipitating factors food a or exertion. 06/07/2020: Patient has had chest and abdominal pain for 3-4 weeks at least. I saw her a couple of weeks ago as is noted in the chart and did not believe the symptoms were ischemically mediated. She has been to the emergency room 7 or 8 times in the last month with the symptoms and no diagnosis has been made. Troponin levels are modestly elevated now but are flat in are not in my opinion convincing of an acute coronary syndrome. Symptoms continued to be atypical in the sense that pain goes throughout the entire abdomen, not really consistent with a coronary slow ischemic etiology. Lexiscan stress test is being done this morning as per my partners plan. The patient's symptoms have continued despite discontinuing her Entresto last week. This was stopped at the request of her PCP who was apparently suspicious that the symptoms were due to that medication. It seems clear that this is not the case. Exam Const: General: uncomfortable Other: Frail elderly lady uncomfortable with ongoing pain HENMT: Mouth: Yes dry mucous membranes Eyes: General: appearance normal, both eyes and all related structures Neck: Neck: supple and no JVD Thyroid: thyroid normal Resp: Effort & Inspection: normal respiratory effort Auscultation: clear to auscultation bilaterally Cardio: Rate: regular rate Rhythm: regular rhythm Other: sinus rhythm with occasional atrial ectopics GI: Auscultation: normal bowel sounds Skin: General skin exam: normal color Neuro: Cognition (Neuro): normal cognition Extrem: Other: very thin and cachectic Objective Data Vital Signs Vital Signs: Vital Signs - 24 hr 06/06/20 10:00 06/06/20 11:38 06/06/20 12:00 Temperature 36.8 C Pulse Rate 78 74 80 Respiratory Rate 16 Blood Pressure 155/71 H Pulse Oximetry 98 06/06/20 14:00 06/06/20 16:00 06/06/20 18:11 Temperature 36.2 C L Pulse Rate 89 68 97 Respiratory Rate 16 Blood Pressure 132/67 Pulse Oximetry 99 06/06/20 20:00 06/06/20 22:00 06/06/20 23:46 Temperature 36.2 C L 36.0 C L Pulse Rate 70 102 H 63 Respiratory Rate 16 16 Blood Pressure 116/62 125/60 Pulse Oximetry 99 97 06/07/20 00:00 06/07/20 02:00 06/07/20 04:00 Temperature 36.4 C L Pulse Rate 71 69 70 Respiratory Rate 18 Blood Pressure 112/50 L Pulse Oximetry 95 06/07/20 06:00 06/07/20 07:05 06/07/20 08:00 Temperature 36.3 C L Pulse Rate 83 65 73 Respiratory Rate 18 Blood Pressure 118/62 Pulse Oximetry 98 Intake/Output Intake/Output: Intake & Output 06/04/20 06/05/20 06/06/20 06/07/20 23:59 23:59 23:59 23:59 Intake Total 1000 880 Output Total 1500 Balance 1000 -620 Meds/Results Medications: Active Medications Generic Name Dose Route Start Last Admin Trade Name Freq PRN Reason Stop Dose Admin Albuterol 2 puff 06/06/20 10:53 Proventil Hfa INHALATION Q4-6H PRN Shortness Of Breath Or Wheezing Alprazolam 0.5 mg 06/06/20 10:53 Xanax
[2020-06-07] MEDS: METOPROLOL SUCCINATE EXT REL 50 MG TABCR PO (09:25)
[2020-06-07] MEDS: VITAMIN B COMPLEX/VIT C CAPSULE 1 EACH PO (09:25)
[2020-06-07] MEDS: GABAPENTIN 300 MG CAPSULE 600 MG PO (09:25)
[2020-06-07] MEDS: SPIRONOLACTONE 25 MG TABLET PO (09:25)
[2020-06-07] MEDS: FUROSEMIDE 40 MG TABLET PO (09:25)
[2020-06-07] MEDS: ATORVASTATIN 40 MG TABLET PO (09:26)
[2020-06-07] MEDS: CLOPIDOGREL BISULFATE 75 MG TABLET PO (09:26)
[2020-06-07] MEDS: PANTOPRAZOLE 40 MG TABLET PO (09:26)
[2020-06-07] MEDS: SACUBITRIL/VALSARTAN 24-26 MG TABLET 1 TAB PO ×2 (09:26→20:47)
--- NOTE | 2020-06-07 10:49 | WPDGIPROGNO ---
Progress Note: A&P Additional Plan Patient remains somewhat anxious. Complains of atypical chest pain as well as abdominal pain. No evidence for bleeding. No relation of pain to diet or bowel habits. Physical exam reveals her to be somewhat anxious. HEENT exam reveals are be anicteric. Lungs are clear. Heart without murmur. Abdomen is soft no localized tenderness and within. Labs reveal hemoglobin 9.2, hematocrit 26.9, MCV 96. Impression 1. Chronic anemia. 2. Abdominal and chest pain. Etiology unclear. This is chronic. Patient has had previous extensive GI work up. Maintained on high-dose proton pump inhibitor for possible acid reflux. 3. Solitary rectal ulcer syndrome. she has a nonhealing rectal ulcer. No recent bleeding despite anticoagulation. Continue to monitor hemoglobin closely. Stool softeners encouraged period as constipation may contribute to this ulcer. 4. Atherosclerotic heart disease. Followed closely by cardiology service present. Subjective Date/time seen: 06/07/20 10:49 Objective Data Vital Signs Vital Signs: Vital Signs - 24 hr 06/06/20 11:38 06/06/20 12:00 06/06/20 14:00 Temperature 98.3 F Pulse Rate 74 80 89 Respiratory Rate 16 Blood Pressure 155/71 H Pulse Oximetry 98 06/06/20 16:00 06/06/20 18:11 06/06/20 20:00 Temperature 97.2 F L 97.2 F L Pulse Rate 68 97 70 Respiratory Rate 16 16 Blood Pressure 132/67 116/62 Pulse Oximetry 99 99 06/06/20 22:00 06/06/20 23:46 06/07/20 00:00 Temperature 96.8 F L Pulse Rate 102 H 63 71 Respiratory Rate 16 Blood Pressure 125/60 Pulse Oximetry 97 06/07/20 02:00 06/07/20 04:00 06/07/20 06:00 Temperature 97.5 F L Pulse Rate 69 70 83 Respiratory Rate 18 Blood Pressure 112/50 L Pulse Oximetry 95 06/07/20 07:05 06/07/20 08:00 06/07/20 09:25 Temperature 97.4 F L Pulse Rate 65 73 66 Respiratory Rate 18 Blood Pressure 118/62 Pulse Oximetry 98 06/07/20 10:20 Temperature Pulse Rate 76 Respiratory Rate Blood Pressure Pulse Oximetry Intake/Output Intake/Output: Intake & Output 06/04/20 06/05/20 06/06/2006/07/20 23:59 23:59 23:59 23:59 Intake Total 1000 880 Output Total 1500 Balance 1000 -620 Meds/Results Medications: Active Medications Generic Name Dose Route Start Last Admin Trade Name Freq PRN Reason Stop Dose Admin Albuterol 2 puff 06/06/20 10:53 Proventil Hfa INHALATION Q4-6H PRN Shortness Of Breath Or Wheezing Alprazolam 0.5 mg 06/06/20 10:53 Xanax PO TID PRN Anxiety Atorvastatin Calcium 40 mg 06/06/20 09:00 06/07/20 09:26 Lipitor PO 40 mg DAILY JESSICA Administration Clopidogrel Bisulfate 75 mg 06/06/20 11:00 06/07/20 09:26 Plavix PO 75 mg DAILY JESSICA Administration Furosemide 40 mg 06/06/20 11:00 06/07/20 09:25 Lasix Tablet PO 40 mg DAILY JESSICA Administration Gabapentin 600 mg 06/06/20 09:00 06/07/20 09:25 Neurontin PO 600 mg DAILY [facility] Administration Hydralazine HCl 10 mg 06/06/20 14:00 06/07/20 04:49 Apresoline Tablet PO 10 mg Q8HR JESSICA Administration Loperamide HCl 2 mg 06/06/20 14:44 06/06/20 15:23 Loperamide Hcl PO 2 mg TID PRN Administration Diarrhea Metoprolol Succinate 50 mg 06/06/20 11:00 06/07/20 09:25 Toprol Xl PO 50 mg DAILY [facility] Administration Nitroglycerin 0.4 mg 06/06/20 10:20 06/06/20 10:59 Nitrostat Subl 0.4 Mg (1/150) SUBLINGUAL 0.4 mg Q5MIN PRN Administration Chest Pain Ondansetron HCl 4 mg 06/05/20 21:13 06/07/20 09:32 Zofran Inj IV PUSH 4 mg Q4H PRN Administration Nausea Oxybutynin Chloride 10 mg 06/06/20 09:00 06/07/20 09:25 Ditropan Xl PO 10 mg DAILY JESSICA Administration Pantoprazole Sodium 40 mg 06/06/20 11:00 06/07/20 09:26 Protonix PO 40 mg DAILY [facility] Administration Prednisolone Acetate 1 drop 06/06/20 09:00 06/07/20 09:26 Pred Forte
[2020-06-07] MEDS: BELLADONNA ALK/PHENOB ELIX 10 ML, MAG HYDROX/ALUMINUM HYD/SIMETH 30 ML, LIDOCAINE HCL 2... PO (11:40)
[2020-06-07] MEDS: ACETAMINOPHEN 325 MG TABLET 650 MG PO (14:15)
[2020-06-07] MEDS: ALPRAZolam 0.5 MG TABLET PO ×2 (15:49→20:51)
--- NOTE | 2020-06-07 18:06 | PM.IMPN ---
Progress Note: A&P Assessment and Plan (1) Epigastric abdominal pain: Code(s): R10.13 - Epigastric pain Status: Acute Assessment and Plan: The patient has chronic epigastric pain with multiple recent hospital visits and [address] scans since December of this year without any decent explanation. The patient has been admitted secondary to an elevated troponin. GI recommends continuing PPI and no further intervention cardiology has seen and nuclear stress test today no evidence of ischemia discussed with her primary doctor Daysi and will obtain small-bowel follow-through 06/08 will give trial of anti spasmodic also. may be all anxiety also. Primary feels may need placement to ensure that she is taking her medications correctly because he is not convinced her is able to do so either (2) Elevated troponin: Code(s): R79.89 - Other specified abnormal findings of blood chemistry Status: Acute Assessment and Plan: The patient has been been admitted for an elevated troponin and cardiac rule out. Cardiology has seen and as above proceed and nuclear stress test today no ischemia (3) Hyponatremia: Code(s): E87.1 - Hypo-osmolality and hyponatremia Status: Chronic Assessment and Plan: Chronic hyponatremia. 127 today. . May be secondary to Lasix use. (4) JOSÉ MIGUEL (acute kidney injury): Code(s): N17.9 - Acute kidney failure, unspecified Status: Acute Assessment and Plan: . Monitor renal function and urine output. creatinine decreased to 1.5 today at her baseline (5) Congestive heart failure: Qualifiers: Heart failure type: unspecified Heart failure chronicity: chronic Qualified Code(s): I50.9 - Heart failure, unspecified Code(s): I50.9 - Heart failure, unspecified Status: Chronic Assessment and Plan: continue home CHF meds. Lasix, hydralazine, beta-wilmer, and Entresto EF but nuclear today greater than 70% (6) Paroxysmal atrial fibrillation: Code(s): I48.0 - Paroxysmal atrial fibrillation Status: Chronic Assessment and Plan: continue beta wilmer. controlled ventricular response and not anticoagulated (7) Chronic anemia: Code(s): D64.9 - Anemia, unspecified Status: Chronic Assessment and Plan: chronically runs 9-10 and stable now at 9.2 (8) Hypothyroidism: Qualifiers: Hypothyroidism type: unspecified Qualified Code(s): E03.9 - Hypothyroidism, unspecified Code(s): E03.9 - Hypothyroidism, unspecified Status: Chronic Assessment and Plan: TSH low so holding levothyroxine. (9) DVT prophylaxis: Code(s): Z29.9 - Encounter for prophylactic measures, unspecified Status: Acute Assessment and Plan: Lovenox Subjective Date/time seen: 06/07/20 18:06 Interval history: date of visit 06/07. 79-year-old demented hypertensive white female with known coronary disease and congestive heart failure admitted with recurrent epigastric and substernal chest burning sensation. She has had EGDs unremarkable and her last cardiac catheterization was in February of 2019 showing no progression of disease and patent stents, she continues to have pain according to her better is 3-4 days with no precipitating factors food a or exertion. today complains of pain all over Exam Narrative: Exam Narrative: Blood pressure 114/62 pulse 100 regular afebrile pupils equal reactive to light sclera anicteric mouth normal lungs clear CV regular hear no murmurs gallops abdomen soft nontender no masses extremities without edema distal pulses 1+ neuro alert no focal deficits but confused Objective Data Vital Signs Vital Signs: Vital Signs - 24 hr 06/06/20 18:11 06/06/20 20:00 06/06/20 22:00 Temperature 36.2 C L Pulse Rate 97 70 102 H Respiratory Rate 16 Blood Pressure 116/62 Pulse Oximetry 99 06/06/20 23:46 08/3
[2020-06-07] MEDS: traZODone HCL 50 MG TABLET 100 MG PO (20:47)
[2020-06-07] MEDS: HYOSCYAMINE SULFATE 0.125 MG TABLET SUBLINGUAL (20:50)
[2020-06-08] VITALS (9 sets, daily range): BP systolic 80–123; BP diastolic 53–76; PULSE 53–86; RESP 18; TEMP 36.4–36.6; O2SAT 96–99
[2020-06-08] MEDS: hydrALAZINE 10 MG TABLET PO ×2 (04:45→13:27)
[2020-06-08] MEDS: ACETAMINOPHEN 325 MG TABLET 650 MG PO ×2 (10:08→17:00)
[2020-06-08] MEDS: GABAPENTIN 300 MG CAPSULE 600 MG PO (10:09)
[2020-06-08] MEDS: FUROSEMIDE 40 MG TABLET PO (10:09)
[2020-06-08] MEDS: ALPRAZolam 0.5 MG TABLET PO ×2 (10:09→17:00)
[2020-06-08] MEDS: SACUBITRIL/VALSARTAN 24-26 MG TABLET 1 TAB PO ×2 (10:09→22:00)
[2020-06-08] MEDS: PANTOPRAZOLE 40 MG TABLET PO (10:10)
[2020-06-08] MEDS: METOPROLOL SUCCINATE EXT REL 50 MG TABCR PO (10:10)
[2020-06-08] MEDS: CLOPIDOGREL BISULFATE 75 MG TABLET PO (10:10)
[2020-06-08] MEDS: SPIRONOLACTONE 25 MG TABLET PO (10:10)
[2020-06-08] MEDS: VITAMIN B COMPLEX/VIT C CAPSULE 1 EACH PO (10:11)
[2020-06-08] MEDS: ATORVASTATIN 40 MG TABLET PO (10:11)
--- NOTE | 2020-06-08 11:24 | WPDGIPROGNO ---
Progress Note: A&P Additional Plan Patient continues to complain rather vague diffuse abdominal pain. This appears to be recurrent in ongoing. physical exam reveals her to be alert. Abdomen is soft flat no localized tenderness could be appreciated. Bowel sounds are present. Impression 1. Chronic abdominal pain. Etiology unclear. Patient maintained on high-dose proton pump inhibitor for possible dyspepsia and possible acid reflux. Consider adding Carafate. Small-bowel follow-through to be obtained I would not disagree with this. 2. Solitary rectal ulcer syndrome. This is nonhealing may account for occult blood in stool. Patient remains on stool softeners. No evidence for bleeding despite anticoagulation. Patient has had frequent follow-up colonoscopies. None anticipated at this time. 3. Atherosclerotic heart disease. Followed by cardiology service. Okay for anticoagulation necessary. Subjective Date/time seen: 06/08/20 11:24 Objective Data Vital Signs Vital Signs: Vital Signs - 24 hr 06/07/20 12:00 06/07/20 14:23 06/07/20 16:00 Temperature 96.9 F L 97.7 F Pulse Rate 79 77 111 H Respiratory Rate 12 12 Blood Pressure 106/56 L 115/61 Pulse Oximetry 97 93 06/07/20 18:41 06/07/20 20:00 06/08/20 05:00 Temperature 97.9 F 97.7 F Pulse Rate 89 69 61 Respiratory Rate 18 18 Blood Pressure 120/58 L 102/59 L Pulse Oximetry 96 96 06/08/20 10:10 06/08/20 10:47 Temperature 97.5 F L Pulse Rate 70 53 L Respiratory Rate 18 Blood Pressure 116/61 Pulse Oximetry 99 Intake/Output Intake/Output: Intake & Output 06/05/20 06/06/20 06/07/20 06/08/20 23:59 23:59 23:59 23:59 Intake Total 1000 880 240 Output Total 1500 Balance 1000 -620 240 Meds/Results Medications: Active Medications Generic Name Dose Route Start Last Admin Trade Name Freq PRN Reason Stop Dose Admin Acetaminophen 650 mg 06/07/20 13:37 06/08/20 10:08 Tylenol Tablet PO 650 mg Q4H PRN Administration Mild Pain (1-3) or Fever Albuterol 2 puff 06/06/20 10:53 Proventil Hfa INHALATION Q4-6H PRN Shortness Of Breath Or Wheezing Alprazolam 0.5 mg 06/06/20 10:53 06/08/20 10:09 Xanax PO 0.5 mg TID PRN Administration Anxiety Atorvastatin Calcium 40 mg 06/06/20 09:00 06/08/20 10:11 Lipitor PO 40 mg DAILY [facility] Administration Clopidogrel Bisulfate 75 mg 06/06/20 11:00 06/08/20 10:10 Plavix PO 75 mg DAILY [facility] Administration Enoxaparin Sodium 30 mg 06/07/20 21:00 06/07/20 22:58 Lovenox SUB-Q Not Given HS [facility] Furosemide 40 mg 06/06/20 11:00 06/08/20 10:09 Lasix Tablet PO 40 mg DAILY [facility] Administration Gabapentin 600 mg 06/06/20 09:00 06/08/20 10:09 Neurontin PO 600 mg DAILY [facility] Administration Hydralazine HCl 10 mg 06/06/20 14:00 06/08/20 04:45 Apresoline Tablet PO 10 mg Q8HR [facility] Administration Hyoscyamine 0.125 mg 06/07/20 18:03 06/07/20 20:50 Levsin Tablet SUBLINGUAL 0.125 mg Q4H PRN Administration Abdominal Cramping Loperamide HCl 2 mg 06/06/20 14:44 06/06/20 15:23 Loperamide Hcl PO 2 mg TID PRN Administration Diarrhea Metoprolol Succinate 50 mg 06/06/20 11:00 06/08/20 10:10 Toprol Xl PO 50 mg DAILY [facility] Administration Nitroglycerin 0.4 mg 06/06/20 10:20 06/06/20 10:59 Nitrostat Subl 0.4 Mg (1/150) SUBLINGUAL 0.4 mg Q5MIN PRN Administration Chest Pain Ondansetron HCl 4 mg 06/05/20 21:13 06/07/20 09:32 Zofran Inj IV PUSH 4 mg Q4H PRN Administration Nausea Oxybutynin Chloride 10 mg 06/06/20 09:00 06/08/20 10:09 Ditropan Xl PO 10 mg DAILY [facility] Administration Pantoprazole Sodium 40 mg 06/06/20 11:00 06/08/20 10:10 Protonix PO 40 mg DAILY [facility] Administration Prednisolone Acetate 1 drop 06/06/20 09:00 06/08/20 10:11 Pred Forte RIGHT EYE 1 drop DAILY JESSICA Administration Sacubitril/Valsartan 1 ta
--- NOTE | 2020-06-08 12:50 | PC.NURSE ---
This patient, Dhara Harry, was received from [facility] on 06/08/20 at 1250. Personal belongings list checked and signed. Patient/family oriented to unit policies and routines
--- NOTE | 2020-06-08 13:09 | PM.PNCARD ---
Progress Note: A&P Assessment and Plan (1) Chest pain: Code(s): R07.9 - Chest pain, unspecified Status: Acute Assessment and Plan: Poorly described chest pain. Now it is reproducible by pushing on her abdomen Lexiscan tmr (vs cath; will discuss w/ Dr. Aj who knows this pt well. Not a great candidate for cath/PCI in view of frailty, CKD stage 3 and anemia.) (2) CAD (coronary artery disease): Code(s): I25.10 - Atherosclerotic heart disease of [place] coronary artery without angina pectoris Status: Acute Assessment and Plan: Known CAD with history of 3 stents at [place] in 2016. Follow-up catheterization in October 2018 showed patent stents and no flow-limiting lesions. Stress test negative for ischemia yesterday (3) Anemia: Code(s): D64.9 - Anemia, unspecified Status: Acute Assessment and Plan: Uncertain etiology, chronic. Check stool guaiac. (4) Stage III chronic kidney disease: Code(s): N18.3 - Chronic kidney disease, stage 3 (moderate) Status: Acute Assessment and Plan: (5) Frailty: Code(s): R54 - Age-related physical debility Status: Acute Assessment and Plan: (6) Low TSH level: Code(s): R79.89 - Other specified abnormal findings of blood chemistry Status: Acute Assessment and Plan: Low TSH Additional Plan no changes to cardiac regimen at this point Subjective Date/time seen: 06/08/20 13:09 Interval history: 79-year-old demented hypertensive white female with known coronary disease and congestive heart failure admitted with recurrent epigastric and substernal chest burning sensation. She has had EGDs there unremarkable and her last cardiac catheterization was in February of 2019 showing no progression of disease and patent stents, she continues to have pain according to her better is 3-4 days with no precipitating factors food a or exertion. Date of service 06/08/2020: She still has chest pain/abdominal pain. States that he will better than previous. No shortness of breath. Review of Systems Constitutional: Constitutional: Reports weakness Eyes: Eyes: Reports no additional eye complaints ENT: Denies epistaxis Cardiovascular: Cardiovascular: Reports chest pain, Denies pedal edema, Denies leg edema, Denies lightheadedness, Denies palpitations, Denies dyspnea and Denies dyspnea on exertion Respiratory: Respiratory: Denies chest congestion, Denies dyspnea and Denies dyspnea on exertion Gastrointestinal: Gastrointestinal: Reports abdominal pain, Denies hematochezia and Reports heartburn Genitourinary: Genitourinary: Denies flank pain Musculoskeletal: Musculoskeletal: Reports no additional musculoskeletal complaints Integumentary/Breasts: Skin/Breast: Denies rash Neurologic: Reports system reviewed and no additional complaints, except as documented and Reports weakness Psychiatric: Psychiatric: Reports no additional psychiatric complaints Endocrine: Endocrine: Denies palpitations Exam Narrative: Exam Narrative: frail appearing underweight older lady who has memory issues and fretfulness,but is not in any physical distress. Const: General: no acute distress and uncomfortable Other: Frail elderly lady uncomfortable with ongoing pain HENMT: General nose exam: no epistaxis Mouth: Yes moist mucous membranes and Yes dry mucous membranes Eyes: General: appearance normal, both eyes and all related structures EOM: EOMs intact bilaterally Neck: Neck: supple and no JVD Thyroid: thyroid normal Carotids: no bruits Resp: Effort & Inspection: normal respiratory effort Auscultation: clear to auscultation bilaterally and wheezes (rare wheeze)
--- NOTE | 2020-06-08 13:39 | PM.IMPN ---
Progress Note: A&P Assessment and Plan (1) Epigastric abdominal pain: Code(s): R10.13 - Epigastric pain Status: Acute Assessment and Plan: The patient has chronic epigastric pain with multiple recent hospital visits and [address] scans since December of this year without any decent explanation. GI recommends continuing PPI and no further intervention at this time. 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 Levsin ordered. Primary feels patient may need placement to ensure that she is taking her medications correctly because he is not convinced her is able to do so either. Plan however is patinet home with homehealth. Called by RN about patient complaints of dizziness. Orthostatic vitals showing Laying (111/56), sitting (106/53) and standing (80/53). Hold diurectics. Adarsh hose on in the morning. Repeat orthostatic in the morning. May need IV fluid. (2) Elevated troponin: Code(s): R79.89 - Other specified abnormal findings of blood chemistry Status: Acute Assessment and Plan: Troponin was 0.108 on admission and climbed to 0.158. Overall a flat pattern. Lexiscan test performed showing no ischemic changes. Appreciate Cardiology input. (3) Hyponatremia: Code(s): E87.1 - Hypo-osmolality and hyponatremia Status: Chronic Assessment and Plan: Patient has moderately low sodium chronically but is now in the 120 range more consistently. Probably related to over diuresis. Will hold Lasix and continue to monitor. (4) Stage III chronic kidney disease: Code(s): N18.3 - Chronic kidney disease, stage 3 (moderate) Status: Acute Assessment and Plan: Baseline creatinine runs anywhere from 1.2-1.8 mostly. Creatinine has been at baseline. Doubt that she has acute kidney injury. Continue to monitor. (5) UTI (urinary tract infection): Code(s): N39.0 - Urinary tract infection, site not specified Status: Acute Assessment and Plan: UCx results noted. Add cefdinir. She has had prior therapy. (6) Congestive heart failure: Qualifiers: Heart failure chronicity: chronic Heart failure type: unspecified Qualified Code(s): I50.9 - Heart failure, unspecified Code(s): I50.9 - Heart failure, unspecified Status: Chronic Assessment and Plan: Echo in Nov 2019 showing EF 50-55% with diastolic dysfunction and moderate AR. EF by Lexiscan >70%. Appears euvolemic. Continue home CHF meds with Lasix, hydralazine, beta-wilmer, and Entresto. (7) Paroxysmal atrial fibrillation: Code(s): I48.0 - Paroxysmal atrial fibrillation Status: Chronic Assessment and Plan: Appears to be maintianing NSR. Continue beta wilmer. Not on [facility]iary anticoagulation. (8) Chronic anemia: Code(s): D64.9 - Anemia, unspecified Status: Chronic Assessment and Plan: Hgb chronically runs in the 9-10 range and stable in that range. Follow periodically (9) Hypothyroidism: Qualifiers: Hypothyroidism type: unspecified Qualified Code(s): E03.9 - Hypothyroidism, unspecified Code(s): E03.9 - Hypothyroidism, unspecified Status: Chronic Assessment and Plan: TSH low but FT4 normal. Levothyroxine on hold. Will resume tomorrow. (10) DVT prophylaxis: Code(s): Z29.9 - Encounter for prophylactic measures, unspecified Status: Acute Assessment and Plan: Lovenox Subjective Date/time seen: 06/08/20 13:39 Interval history: Date of Service: 06/08 79yo female with dementia, CHF, CAD and HTN admitted with recurrent epigastric and substernal chest burning sensation. She has had EGDs there unremarkable and her last cardiac catheterization was in February of 2019 showing no progression of disease and patent stents. Assuming care. Chart revi
[2020-06-08] MEDS: CEFDINIR 300 MG CAPSULE PO ×2 (15:49→20:51)
--- NOTE | 2020-06-08 17:00 | PC.NURSE ---
Called to room patient states feels light headed, like she is going to pass out. states has felt this at home as well. B/P 123/76. resp even and unlabored denies sob. request pain med for abd and xanax.
--- NOTE | 2020-06-08 17:45 | PC.NURSE ---
States feels better, ate supper, no further c/o's at present.
--- NOTE | 2020-06-08 18:15 | PC.NURSE ---
Called back to room states feel light headed again, like she is going to pass out. Dr. Mancini notified orders received.
--- NOTE | 2020-06-08 18:20 | PC.NURSE ---
Went to room to reassess and do orthostatic b/p's, patient in bathroom, when completed orthostatic completed see vital sign documentation, Dr Mancini notified.
[2020-06-08] MEDS: ENOXAPARIN 30 MG/0.3 ML SYRINGE SUB-Q (20:51)
[2020-06-08] MEDS: traZODone HCL 50 MG TABLET 100 MG PO (22:00)
[2020-06-09] VITALS (8 sets, daily range): BP systolic 103–118; BP diastolic 53–98; PULSE 60–85; RESP 18–20; TEMP 36.2–36.8; O2SAT 93–99
[2020-06-09] MEDS: ALPRAZolam 0.5 MG TABLET PO (01:26)
[2020-06-09] MEDS: ACETAMINOPHEN 325 MG TABLET 650 MG PO ×2 (05:58→15:38)
[2020-06-09 06:46] LABS: Hematocrit 26.7 % (37.0-47.0); Hemoglobin 8.9 g/dL (12.0-15.0); Mean Corpuscular HGB Conc 33.3 g/dl (32-36); Mean Corpuscular Hemoglobin 32.2 pg (26-34); Mean Corpuscular Volume 96.7 fl (80-100); Mean Platelet Volume 9.2 fl (7.4-10.4); Platelet Count Result 241 k/mm3 (150-375); Red Blood Count 2.76 M/mm3 (4.2-5.4); Red Cell Distribution Width 11.1 % (11.5-14.5); White Blood Count 3.1 K/mm3 (4.5-10.0)
[2020-06-09 07:00] LABS: Albumin Level 3.2 g/dL (3.5-5.1); Anion Gap 7 mmol/L (8-16); Blood Urea Nitrogen 23 mg/dL (7-17); Calcium 8.1 mg/dL (8.4-10.2); Carbon Dioxide 27 mmol/L (22-30); Chloride 91 mmol/L (98-107); Estimated CRCL calculation 30 ml/min; Estimated Glomerular Filt Rate 43; Glucose 78 mg/dL (65-105); Magnesium 2.1 mg/dL (1.6-2.3); Sodium 125 mmol/L (137-145)
--- NOTE | 2020-06-09 09:25 | WPDGIPROGNO ---
Progress Note: A&P Additional Plan Patient continues to complain rather vague chest and upper abdominal discomfort. Chest discomfort appears greater than abdominal discomfort. She is tolerating diet with no difficulties. This does not affect her pain. Bowel habits have remained unchanged as well. Physical exam reveals a depressed affect. Abdomen is soft with no localized tenderness evident no masses noted. Impression 1. Atypical chest and abdominal pain. Etiology unclear. Wonder if this could be related to her depression. Patient remains on b.i.d. dosing of proton pump inhibitors for possible dyspepsia possible acid reflux. Upper GI and small-bowel follow-through obtained during this hospital stay is essentially unremarkable (presbyesophagus noted) 2. Atherosclerotic heart disease. Followed by cardiology service she has had stents placed she is on anticoagulation. 3. Solitary rectal ulcer syndrome. She has had a nonhealing rectal ulcer on multiple previous exams. No need to repeat exam at this time. No bleeding described. Continue stool softeners. Subjective Date/time seen: 06/09/20 09:25 Objective Data Vital Signs Vital Signs: Vital Signs - 24 hr 06/08/20 10:10 06/08/20 10:47 06/08/20 13:00 Temperature 97.5 F L 97.8 F Pulse Rate 70 53 L 69 Respiratory Rate 18 18 Blood Pressure 116/61 104/57 L Pulse Oximetry 99 97 06/08/20 17:00 06/08/20 18:25 06/08/20 18:27 Temperature Pulse Rate 67 73 Respiratory Rate Blood Pressure 123/76 111/56 L 103/53 L Pulse Oximetry 06/08/20 18:29 06/08/20 20:00 06/09/20 00:00 Temperature 97.8 F 97.2 F L Pulse Rate 86 60 66 Respiratory Rate 18 20 Blood Pressure 80/53 L 119/62 116/70 Pulse Oximetry 96 93 06/09/20 04:00 Temperature 98.3 F Pulse Rate 85 Respiratory Rate 20 Blood Pressure 103/53 L Pulse Oximetry 95 Intake/Output Intake/Output: Intake & Output 06/06/20 06/07/20 06/08/20 06/09/20 23:59 23:59 23:59 23:59 Intake Total 880 240 700 200 Output Total 1500 Balance -620 240 700 200 Meds/Results Medications: Active Medications Generic Name Dose Route Start Last Admin Trade Name Freq PRN Reason Stop Dose Admin Acetaminophen 650 mg 06/07/20 13:37 06/09/20 05:58 Tylenol Tablet PO 650 mg Q4H PRN Administration Mild Pain (1-3) or Fever Albuterol 2 puff 06/06/20 10:53 Proventil Hfa INHALATION Q4-6H PRN Shortness Of Breath Or Wheezing Alprazolam 0.5 mg 06/06/20 10:53 06/09/20 01:26 Xanax PO 0.5 mg TID PRN Administration Anxiety Atorvastatin Calcium 40 mg 06/06/20 09:00 06/08/20 10:11 Lipitor PO 40 mg DAILY JESSICA Administration Cefdinir 300 mg 06/08/20 14:30 06/08/20 20:51 Omnicef PO 300 mg Q12HR JESSICA Administration Clopidogrel Bisulfate 75 mg 06/06/20 11:00 06/08/20 10:10 Plavix PO 75 mg DAILY JESSICA Administration Enoxaparin Sodium 30 mg 06/07/20 21:00 06/08/20 20:51 Lovenox SUB-Q 30 mg HS JESSICA Administration Furosemide 40 mg 06/06/20 11:00 06/08/20 10:09 Lasix Tablet PO 40 mg DAILY JESSICA Administration Gabapentin 600 mg 06/06/20 09:00 06/08/20 10:09 Neurontin PO 600 mg DAILY JESSICA Administration Hydralazine HCl 10 mg 06/06/20 14:00 06/08/20 13:27 Apresoline Tablet PO 10 mg Q8HR JESSICA Administration Hyoscyamine 0.125 mg 06/07/20 18:03 06/07/20 20:50 Levsin Tablet SUBLINGUAL 0.125 mg Q4H PRN Administration Abdominal Cramping Loperamide HCl 2 mg 06/06/20 14:44 06/06/20 15:23 Loperamide Hcl PO 2 mg TID PRN Administration Diarrhea Metoprolol Succinate 50 mg 06/06/20 11:00 06/08/20 10:10 Toprol Xl PO 50 mg DAILY JESSICA Administration Nitroglycerin 0.4 mg 06/06/20 10:20 06/06/20 10:59 Nitrostat Subl 0.4 Mg (1/150) SUBLINGUAL 0.4 mg Q5MIN PRN Administration Chest Pain Ondansetron HCl 4 mg 06/05/20 21:13 06/07/20 09:32 Don Inj I
[2020-06-09] MEDS: VITAMIN B COMPLEX/VIT C CAPSULE 1 EACH PO (10:54)
[2020-06-09] MEDS: GABAPENTIN 300 MG CAPSULE 600 MG PO (10:54)
[2020-06-09] MEDS: SACUBITRIL/VALSARTAN 24-26 MG TABLET 1 TAB PO (10:55)
[2020-06-09] MEDS: CEFDINIR 300 MG CAPSULE PO (10:55)
[2020-06-09] MEDS: ATORVASTATIN 40 MG TABLET PO (10:55)
[2020-06-09] MEDS: PANTOPRAZOLE 40 MG TABLET PO (10:55)
[2020-06-09] MEDS: CLOPIDOGREL BISULFATE 75 MG TABLET PO (10:56)
[2020-06-09] MEDS: METOPROLOL SUCCINATE EXT REL 50 MG TABCR PO (10:56)
--- NOTE | 2020-06-09 11:20 | PM.PNCARD ---
Progress Note: A&P Assessment and Plan (1) Chest pain: Code(s): R07.9 - Chest pain, unspecified Status: Acute Assessment and Plan: Poorly described chest pain. Now it is reproducible by pushing on her abdomen Lexiscan tmr (vs cath; will discuss w/ Dr. Aj who knows this pt well. Not a great candidate for cath/PCI in view of frailty, CKD stage 3 and anemia.) (2) CAD (coronary artery disease): Code(s): I25.10 - Atherosclerotic heart disease of lime coronary artery without angina pectoris Status: Acute Assessment and Plan: Known CAD with history of 3 stents at [facility] in 2016. Follow-up catheterization in October 2018 showed patent stents and no flow-limiting lesions. Stress test negative for ischemia (3) Anemia: Code(s): D64.9 - Anemia, unspecified Status: Acute Assessment and Plan: Uncertain etiology, chronic. Check stool guaiac. (4) Stage III chronic kidney disease: Code(s): N18.3 - Chronic kidney disease, stage 3 (moderate) Status: Acute Assessment and Plan: (5) Frailty: Code(s): R54 - Age-related physical debility Status: Acute Assessment and Plan: (6) Low TSH level: Code(s): R79.89 - Other specified abnormal findings of blood chemistry Status: Acute Assessment and Plan: Low TSH Subjective Date/time seen: 06/09/20 11:20 Interval history: 79-year-old demented hypertensive white female with known coronary disease and congestive heart failure admitted with recurrent epigastric and substernal chest burning sensation. She has had EGDs there unremarkable and her last cardiac catheterization was in February of 2019 showing no progression of disease and patent stents, she continues to have pain according to her better is 3-4 days with no precipitating factors food a or exertion. Date of service 06/09/2020: She still has chest pain/abdominal pain. still has significant abdominal pain to palpate. No shortness of breath. Review of Systems Constitutional: Constitutional: Reports weakness Eyes: Eyes: Reports no additional eye complaints ENT: Denies epistaxis Cardiovascular: Cardiovascular: Reports chest pain, Denies pedal edema, Denies leg edema, Denies lightheadedness, Denies palpitations, Denies dyspnea and Denies dyspnea on exertion Respiratory: Respiratory: Denies chest congestion, Denies dyspnea and Denies dyspnea on exertion Gastrointestinal: Gastrointestinal: Reports abdominal pain, Denies hematochezia and Reports heartburn Genitourinary: Genitourinary: Denies flank pain Musculoskeletal: Musculoskeletal: Reports no additional musculoskeletal complaints Integumentary/Breasts: Skin/Breast: Denies rash Neurologic: Reports system reviewed and no additional complaints, except as documented and Reports weakness Psychiatric: Psychiatric: Reports no additional psychiatric complaints Endocrine: Endocrine: Denies palpitations Exam Narrative: Exam Narrative: frail appearing underweight older lady who has memory issues and fretfulness,but is not in any physical distress. Const: General: no acute distress and uncomfortable Other: Frail elderly lady uncomfortable with ongoing pain HENMT: General nose exam: no epistaxis Mouth: Yes moist mucous membranes and Yes dry mucous membranes Eyes: General: appearance normal, both eyes and all related structures EOM: EOMs intact bilaterally Neck: Neck: supple and no JVD Thyroid: thyroid normal Carotids: no bruits Resp: Effort & Inspection: normal respiratory effort Auscultation: clear to auscultation bilaterally and wheezes (rare wheeze) Cardio: Rate: regular rate Rhythm: regular rhythm Heart deep
--- NOTE | 2020-06-09 13:47 | PM.DS ---
DS: Admitting Diagnosis Admitting Diagnosis Admitting Diagnosis: chest pain, elevated troponin, hyponatremia DS: Discharge Diagnosis Discharge Diagnosis (1) Epigastric abdominal pain: Code(s): R10.13 - Epigastric pain Status: Acute Assessment and Plan: The patient has chronic epigastric pain with multiple recent hospital visits and [address] scans since December of this year without any decent explanation. GI recommends continuing PPI and no further intervention at this time. 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 Levsin ordered. Primary feels patient may need placement to ensure that she is taking her medications correctly because he is not convinced her is able to do so either. Plan however is patient home with home health. Discussed with family. (2) Elevated troponin: Code(s): R79.89 - Other specified abnormal findings of blood chemistry Status: Acute Assessment and Plan: Troponin was 0.108 on admission and climbed to 0.158. Overall a flat pattern. Lexiscan test performed showing no ischemic changes. Cardiology following along. (3) Hyponatremia: Code(s): E87.1 - Hypo-osmolality and hyponatremia Status: Chronic Assessment and Plan: Patient has moderately low sodium chronically but is now in the 120 range more consistently. Probably related to over diuresis. Hold lasix in a few days. Spironolactone to be stopped. Repeat BMP in 1 week (4) Stage III chronic kidney disease: Code(s): N18.3 - Chronic kidney disease, stage 3 (moderate) Status: Acute Assessment and Plan: Baseline creatinine runs anywhere from 1.2-1.8 mostly. Creatinine here has been at baseline. Doubt that she has acute kidney injury. Continue to monitor. Cr at discharge 1.2. (5) UTI (urinary tract infection): Code(s): N39.0 - Urinary tract infection, site not specified Status: Acute Assessment and Plan: UCx results positive. Cefdinir added. She has had prior therapy. (6) Congestive heart failure: Qualifiers: Heart failure type: unspecified Heart failure chronicity: chronic Qualified Code(s): I50.9 - Heart failure, unspecified Code(s): I50.9 - Heart failure, unspecified Status: Chronic Assessment and Plan: Echo in Nov 2019 showing EF 50-55% with diastolic dysfunction and moderate AR. EF by Lexiscan >70%. Appears euvolemic. Continue home CHF meds with Lasix, hydralazine, beta-wilmer, and Entresto. Called by RN about patient complaints of dizziness. Orthostatic vitals showing Laying (111/56), sitting (106/53) and standing (80/53). We held diuretics. Adarsh wu added. Repeat orthostatic normal now. Discussed with cardiology. Plan to stop Spironolactone and hold lasix for 2 days then resume. Plan to continue Entresto. She did not require IV fluids (7) Paroxysmal atrial fibrillation: Code(s): I48.0 - Paroxysmal atrial fibrillation Status: Chronic Assessment and Plan: Appears to be maintaining NSR. We contiuned beta wilmer. 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 (8) Chronic anemia: Code(s): D64.9 - Anemia, unspecified Status: Chronic Assessment and Plan: Hgb chronically runs in the 9-10 range and stable in that range. Follow periodically (9) Hypothyroidism: Qualifiers: Hypothyroidism type: unspecified Qualified Code(s): E03.9 - Hypothyroidism, unspecified Code(s): E03.9 - Hypothyroidism, unspecified Status: Chronic Assessment and Plan: TSH low but FT4 normal. Levothyroxine on hold. Resumed at discharge. (10) DVT prophylaxis: Code(s): Z29.9 - Encounter for prophylactic measures, unspecified Status: Acute Assessment and Plan: Lovenox DS: Summary Hospital Course Reason
--- NOTE | 2020-06-09 15:02 | PC.NURSE ---
Called and verified ok to discharge from Dr Reilly stand point. Doctor says ok to discharge.
== END 2020-06-09 16:07 | disposition home health service (06) | DRG 392 ==
LOC: ANHED 20:07 → ANHIMU 21:38 → ANH3MEDSUR 06-08 12:32
PROVIDERS: Family Medicine; Internal Medicine; Internal Medicine Cardiovascular Disease; Admitting Provider Family Medicine; Emergency Provider General Practice; PCP Family Medicine; Visit Provider Internal Medicine
DX: R10.13 Epigastric pain (principal); E87.1 Hypo-osmolality and hyponatremia; N17.9 Acute kidney failure, unspecified; I13.0 Hypertensive heart and chronic kidney disease with heart failure and stage 1 through stage 4 chronic kidney disease, or unspecified chronic kidney disease; I50.42 Chronic combined systolic (congestive) and diastolic (congestive) heart failure; K62.6 Ulcer of anus and rectum; I25.110 Atherosclerotic heart disease of native coronary artery with unstable angina pectoris; N39.0 Urinary tract infection, site not specified; N18.3 Chronic kidney disease, stage 3 (moderate); R79.89 Other specified abnormal findings of blood chemistry; I48.0 Paroxysmal atrial fibrillation; D64.9 Anemia, unspecified; E03.9 Hypothyroidism, unspecified; N18.9 Chronic kidney disease, unspecified; F41.8 Other specified anxiety disorders; K22.8 Other specified diseases of esophagus; K21.9 Gastro-esophageal reflux disease without esophagitis; E78.5 Hyperlipidemia, unspecified; K58.9 Irritable bowel syndrome, unspecified; I25.5 Ischemic cardiomyopathy; G47.33 Obstructive sleep apnea (adult) (pediatric); G62.9 Polyneuropathy, unspecified; G25.81 Restless legs syndrome; Z96.653 Presence of artificial knee joint, bilateral; Z96.643 Presence of artificial hip joint, bilateral; R54 Age-related physical debility; Z95.5 Presence of coronary angioplasty implant and graft; Z79.01 Long term (current) use of anticoagulants; Z98.42 Cataract extraction status, left eye; Z98.41 Cataract extraction status, right eye; Z90.49 Acquired absence of other specified parts of digestive tract
CPT/HCPCS: 36415; 71046; 74240; 74248; 78452; 80048; 80069; 82274; 83735; 84439; 84443; 84480; 84484; 85025; 85027; 85610; 85730; 93005; 93017; 96361; 96372; 96374; 96375; 96376; 97162; 97165; 99285; A9270; A9502; C9113; G0378; J1650; J2060; J2270; J2405; J2785; J7030

== ENCOUNTER 2020-06-11 18:22 | Emergency (ER) | payer MEDICARE, SELFPAY ==
[2020-06-11 19:02] VITALS: BP 138/69; PULSE 69; RESP 18; TEMP 36.8; O2SAT 97
--- NOTE | 2020-06-11 19:10 | ECG_ITS ---
Measurements Intervals [place] Rate: 82 P: 80 NH: 149 QRS: -39 QRSD: 89 T: 49 QT: 393 QTc: 460 Interpretive Statements SINUS RHYTHM ATRIAL PREMATURE COMPLEXES LEFT AXIS DEVIATION ANTEROSEPTAL INFARCT, AGE INDETERMINATE BORDERLINE ST ABNORMALITY- LATERAL LEADS BASELINE ARTIFACT- I, II, III, AVR, AVL ABNORMAL ECG Electronically Signed On 06-12-2020 6:57:15 CDT by Marlon Joe D.O.
--- NOTE | 2020-06-12 07:45 | ED.CHESTPAIN ---
HPI - Chest Pain General Chief Complaint: Chest Pain Stated Complaint: CP Time Seen by Provider: 06/11/20 18:59 Source: patient Mode of arrival: ambulatory Limitations: no limitations History of Present Illness HPI narrative: This patient is an 80 year old female with history of chronic chest and abdominal pain who presents for evaluation of chest and abdominal pain. She has been to the ER multiple times in the past couple month for this pain. She describes this pain as burning pain from her mid chest down to her pelvis. She is unable to describe what makes it worse. She reports sometimes he may be due to eating. She was admitted to hospital 06/05/20 and she was evaluated by benefits administrator and child protection specialist. Loop Sewer feel her pain is noncardiac. She also had a negative lexiscan stress test this visit as well. She was just discharged 2 days ago . This pain is chronic pain and it is not new. Related Data Home Medications Medication Instructions Recorded Confirmed B Complex Plus Vitamin C 150 mg PO DAILY 09/01/19 06/05/20 Entresto 1 tablet PO Q12H 09/01/19 06/05/20 albuterol sulfate 2 puff INHALATION Q4-6H PRN 09/01/19 06/05/20 alprazolam 0.5 mg PO TID PRN 09/01/19 06/05/20 ascorbic acid (vitamin C) [Vitamin 500 mg PO DAILY 09/01/19 06/05/20 C With Debora Hips] cholecalciferol (vitamin D3) 5,000 unit PO DAILY 09/01/19 06/05/20 clopidogrel 75 mg PO DAILY 09/01/19 06/05/20 furosemide 40 mg PO DAILY 09/01/19 06/05/20 hydralazine 10 mg PO TID 09/01/19 06/05/20 levothyroxine 125 mcg PO DAILY 09/01/19 06/05/20 metoprolol succinate 50 mg PO DAILY 09/01/19 06/05/20 nitroglycerin 0.4 mg SUBLINGUAL Q5M PRN 09/01/19 06/05/20 pantoprazole 40 mg PO DAILY 09/01/19 06/05/20 trazodone 100 mg PO HS 09/01/19 06/05/20 ferrous sulfate 325 mg PO DAILY 09/06/19 06/05/20 prednisolone acetate 1 % RIGHTEYE DAILY 09/06/19 06/05/20 acetaminophen 500 mg PO Q4-6H PRN 12/01/19 06/05/20 atorvastatin 40 mg PO DAILY 12/12/19 06/05/20 gabapentin 600 mg PO DAILY 03/20/20 06/05/20 oxybutynin chloride 10 mg PO DAILY 03/20/20 06/05/20 acyclovir 1,000 mg PO DAILY 05/31/20 06/05/20 Allergies Allergy/AdvReac Type Severity Reaction Status Date / Time Penicillins Allergy Unknown Rash Verified 06/05/20 19:11 Review of Systems Review of Systems: All systems reviewed & are unremarkable except as noted in HPI and below Constitutional: Constitutional: Denies chills and Denies fever(s) Cardiovascular: Cardiovascular: Reports chest pain Respiratory: Respiratory: Denies cough and Denies dyspnea Gastrointestinal: Gastrointestinal: Reports abdominal pain, Denies diarrhea, Denies nausea and Denies vomiting PMFSH Past Medical History Medical History Chronic anemia Chronic kidney disease, stage 3 Congestive heart failure Systolic and diastolic congestive heart failure Echo 11/27 showed EF 50%. Echo 01/14/2019: EF measured at 39%. September 2018 EF was 25%. Echo 12/02/2019 EF 50-55%. Grade 1 diastolic function. Coronary artery disease With multivessel surgical revascularization with PCI at [facility] October 2017. 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 Frequent headaches GERD (gastroesophageal reflux disease) With history of esophageal stricture requiring dilatation. History of GI bleed History of rectal polyps Hyperlipidemia Hypertension Hypothyroidism TSH in November 2019 was a bit low, with normal T4. IBS (irritable bowel syndrome) Ischemic cardiomyopathy Mitral valve prolapse Myasthenia gravis Questionable history of. Obstructive sleep apnea Ocular herpes zoster History of shingles to the left eye, on chronic antiviral therapy. Paroxysmal atrial fibrillation No longer on long-term anticoagulation due to history of falls. Peripheral neuropathy Rectal polyp
== END 2020-06-11 20:23 | disposition left against medical advice (07) ==
PROVIDERS: Emergency Provider General Practice; PCP Family Medicine
DX: R10.9 Unspecified abdominal pain (principal); G89.29 Other chronic pain; I13.0 Hypertensive heart and chronic kidney disease with heart failure and stage 1 through stage 4 chronic kidney disease, or unspecified chronic kidney disease; N18.3 Chronic kidney disease, stage 3 (moderate); I50.40 Unspecified combined systolic (congestive) and diastolic (congestive) heart failure; I25.10 Atherosclerotic heart disease of native coronary artery without angina pectoris; K21.9 Gastro-esophageal reflux disease without esophagitis; I25.2 Old myocardial infarction; E87.5 Hyperkalemia; K58.9 Irritable bowel syndrome, unspecified; I34.1 Nonrheumatic mitral (valve) prolapse; G47.33 Obstructive sleep apnea (adult) (pediatric); I48.0 Paroxysmal atrial fibrillation; G62.9 Polyneuropathy, unspecified; G25.81 Restless legs syndrome; Z96.643 Presence of artificial hip joint, bilateral; Z96.653 Presence of artificial knee joint, bilateral; Z98.42 Cataract extraction status, left eye; Z98.41 Cataract extraction status, right eye; Z79.82 Long term (current) use of aspirin; Z87.19 Personal history of other diseases of the digestive system; E03.9 Hypothyroidism, unspecified; I49.1 Atrial premature depolarization; R94.31 Abnormal electrocardiogram [ECG] [EKG]
CPT/HCPCS: 93005; 99283

== ENCOUNTER 2020-06-13 21:04 | Emergency (ER) | payer MEDICARE, SELFPAY ==
--- NOTE | ~2020-06-13 | XR_ITS ---
EXAMINATION: XR chest 2V DATE: 06/13/2020 22:34 INDICATION: Chest pain TECHNIQUE: PA and lateral views of the chest are obtained. COMPARISON: 06/05/2020 FINDINGS: The lungs are hyperinflated but free of acute opacities. There is no pleural effusion or pn eumothorax. The cardiomediastinal silhouette is normal. There is severe thoracic spondylosis. Coronar y artery stents are noted. Cholecystectomy clips are present in the right upper quadrant. IMPRESSION: 1. No acute cardiopulmonary abnormality. Reviewed, dictated and finalized at location A.
[2020-06-13 21:25] VITALS: BP 145/65; PULSE 63; RESP 20; TEMP 36.4; O2SAT 97
--- NOTE | 2020-06-13 21:28 | ECG_ITS ---
Measurements Intervals [place] Rate: 65 P: 86 [place]: 146 QRS: -86 QRSD: 86 T: 73 QT: 425 QTc: 442 Interpretive Statements SINUS RHYTHM ATRIAL PREMATURE COMPLEX LEFT ANTERIOR FASCICULAR BLOCK ANTEROSEPTAL INFARCT, AGE INDETERMINATE BASELINE ARTIFACT- I, II, III, AVR, AVL, AVF, V4-V5 ABNORMAL ECG Electronically Signed On 06-14-2020 8:24:04 CDT by Marlon Joe D.O.
[2020-06-13 21:42] LABS: Basophils Percent Auto 0.3 % (0.2-1.2); Hematocrit 28.2 % (37.0-47.0); Hemoglobin 9.5 g/dL (12.0-15.0); Immature Granulocyte Absolute 0.01 K/mm3 (0.00-0.031); Immature Granulocyte Percent A 0.3 % (0-0.5); Lymphocytes Absolute Auto 0.82 K/mm3 (0.9-3.2); Lymphocytes Percent Auto 25.3 % (18.3-44.2); Mean Corpuscular HGB Conc 33.7 g/dl (32-36); Mean Corpuscular Hemoglobin 32.2 pg (26-34); Mean Corpuscular Volume 95.6 fl (80-100); Monocytes Absolute Auto 0.3 K/mm3 (0.1-0.6); Monocytes Percent Auto 9.9 % (2.6-8.5); Neutrophils Absolute Auto 2.1 K/mm3 (1.3-6.7); Neutrophils Percent Auto 64.2 % (45.5-73.1); Platelet Count Result 279 k/mm3 (150-375); Red Blood Count 2.95 M/mm3 (4.2-5.4); Red Cell Distribution Width 11.2 % (11.5-14.5); White Blood Count 3.2 K/mm3 (4.5-10.0)
[2020-06-13 21:54] LABS: Anion Gap 10 mmol/L (8-16); Blood Urea Nitrogen 21 mg/dL (7-17); Calcium 8.5 mg/dL (8.4-10.2); Carbon Dioxide 24 mmol/L (22-30); Chloride 91 mmol/L (98-107); Estimated Glomerular Filt Rate 25; Glucose 93 mg/dL (65-105); Potassium 3.9 mmol/L (3.4-5.0); Prothrombin Time 13.1 Seconds (11.1-14.7); Sodium 125 mmol/L (137-145)
[2020-06-13 21:55] LABS: Partial Thromboplastin Time 26.5 SECONDS (22.3-36.8)
[2020-06-13 22:06] LABS: Troponin I < 0.012 ng/mL (0.000-0.034)
[2020-06-14] MEDS: BELLADONNA ALK/PHENOB ELIX 10 ML, MAG HYDROX/ALUMINUM HYD/SIMETH 30 ML, LIDOCAINE HCL 2... PO (00:13)
[2020-06-14] MEDS: SODIUM CHLORIDE 0.9% IV 1,000 ML 999 ML IV CONT (00:13)
[2020-06-14] MEDS: ASPIRIN 81 MG CHEWABLE TABLET 324 MG PO (00:13)
[2020-06-14 00:44] VITALS: PULSE 75; RESP 18; O2SAT 100
[2020-06-14 00:51] LABS: Troponin I < 0.012 ng/mL (0.000-0.034)
--- NOTE | 2020-06-14 01:55 | ED.GENADULT ---
HPI - General Adult General Chief complaint: Chest Pain Stated complaint: cp Time Seen by Provider: 06/13/20 23:40 History of Present Illness HPI narrative: Patient is an 80-year-old female who presents ER with chest pain and abdominal pain. Patient recurrently comes to the ER for the same issues. She reports the pains been ongoing all day it is burning in nature. Goes from her abdomen into her chest. No nausea or vomiting or shortness of breath. Reports compliance with home medication but previous hospitalist note reports there is concerned that she is not compliant and that her has difficulty caring for her. Patient recently had a negative Lexiscan stress test. Cannot identify aggravating or alleviating factors. Related Data Home Medications Medication Instructions Recorded Confirmed B Complex Plus Vitamin C 150 mg PO DAILY 09/01/19 06/05/20 Entresto 1 tablet PO Q12H 09/01/19 06/05/20 albuterol sulfate 2 puff INHALATION Q4-6H PRN 09/01/19 06/05/20 alprazolam 0.5 mg PO TID PRN 09/01/19 06/05/20 ascorbic acid (vitamin C) [Vitamin 500 mg PO DAILY 09/01/19 06/05/20 C With Debora Hips] cholecalciferol (vitamin D3) 5,000 unit PO DAILY 09/01/19 06/05/20 clopidogrel 75 mg PO DAILY 09/01/19 06/05/20 furosemide 40 mg PO DAILY 09/01/19 06/05/20 hydralazine 10 mg PO TID 09/01/19 06/05/20 levothyroxine 125 mcg PO DAILY 09/01/19 06/05/20 metoprolol succinate 50 mg PO DAILY 09/01/19 06/05/20 nitroglycerin 0.4 mg SUBLINGUAL Q5M PRN 09/01/19 06/05/20 pantoprazole 40 mg PO DAILY 09/01/19 06/05/20 trazodone 100 mg PO HS 09/01/19 06/05/20 ferrous sulfate 325 mg PO DAILY 09/06/19 06/05/20 prednisolone acetate 1 % RIGHTEYE DAILY 09/06/19 06/05/20 acetaminophen 500 mg PO Q4-6H PRN 12/01/19 06/05/20 atorvastatin 40 mg PO DAILY 12/12/19 06/05/20 gabapentin 600 mg PO DAILY 03/20/20 06/05/20 oxybutynin chloride 10 mg PO DAILY 03/20/20 06/05/20 acyclovir 1,000 mg PO DAILY 05/31/20 06/05/20 Allergies Allergy/AdvReac Type Severity Reaction Status Date / Time Penicillins Allergy Unknown Rash Verified 06/13/20 21:28 Review of Systems Review of Systems: All systems reviewed & are unremarkable except as noted in HPI and below Constitutional: Constitutional: Denies chills and Denies fever(s) Cardiovascular: Cardiovascular: Reports chest pain, Denies rapid heart rate and Denies radiating jaw, neck or arm pain Respiratory: Respiratory: Denies cough and Denies dyspnea Gastrointestinal: Gastrointestinal: Reports abdominal pain, Denies diarrhea, Denies nausea and Denies vomiting Musculoskeletal: Musculoskeletal: Denies back pain and Denies muscle cramps PMFSH Social History Social History Social History: Pt would like her , Annie to be her decision maker if she is unable to make her own decsions. Three children. She would like to be a full code. 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 She is a lifelong nonsmoker and does not drink alcohol or use illicit substances. Her primary care provider is Dr. Heri Tavarez. Smoking status: Never smoker Alcohol intake: never Substance use: never Gender identity (if verbalized by the patient): Female Spiritual care concerns: No Agree to blood products: Yes Exam Narrative: Exam Narrative: GENERAL: Well appearing, underweight, and in no acute distress. HEAD: Normocephalic, atraumatic. ENT: Mucous membranes moist. CHEST: Clear to auscultation. No respiratory distress. HEART: Regular rate and rhythm. Normal peripheral pulses. ABDOMEN: Soft, nontender, nondistended EXTREMITIES: Normal range of motion. No edema. SKIN: Warm, dry, no rash. NEURO: Alert and oriented x3. PSYCH: Normal mood and affect. Course Course Emergency Course: Modest improvement with GI cocktail. Troponins negative. Slightly dehydrated with a bump in creatinine so patient hydrated. Patie
[2020-06-14 02:22] VITALS: BP 156/73; PULSE 85; RESP 20; TEMP 36.7; O2SAT 98
== END 2020-06-14 02:24 | disposition home or self-care (01) ==
PROVIDERS: Emergency Provider Emergency Medicine; PCP Family Medicine
DX: R07.89 Other chest pain (principal); E86.0 Dehydration; I13.0 Hypertensive heart and chronic kidney disease with heart failure and stage 1 through stage 4 chronic kidney disease, or unspecified chronic kidney disease; N18.3 Chronic kidney disease, stage 3 (moderate); I50.40 Unspecified combined systolic (congestive) and diastolic (congestive) heart failure; I25.10 Atherosclerotic heart disease of native coronary artery without angina pectoris; K21.9 Gastro-esophageal reflux disease without esophagitis; I25.2 Old myocardial infarction; E78.5 Hyperlipidemia, unspecified; K58.9 Irritable bowel syndrome, unspecified; I34.1 Nonrheumatic mitral (valve) prolapse; G47.33 Obstructive sleep apnea (adult) (pediatric); I48.0 Paroxysmal atrial fibrillation; G62.9 Polyneuropathy, unspecified; G25.81 Restless legs syndrome; Z96.643 Presence of artificial hip joint, bilateral; Z96.653 Presence of artificial knee joint, bilateral; Z87.19 Personal history of other diseases of the digestive system; E03.9 Hypothyroidism, unspecified
CPT/HCPCS: 36415; 71046; 80048; 84484; 85025; 85610; 85730; 93005; 96360; 99284; A9270; J7030

== ENCOUNTER 2020-06-16 11:45 | Observation (INO) | payer MEDICARE, SELFPAY ==
[2020-06-16] VITALS (12 sets, daily range): BP systolic 128–178; BP diastolic 60–85; PULSE 60–101; RESP 15–21; TEMP 36.2–36.5; O2SAT 95–100
--- NOTE | ~2020-06-16 | XR_ITS ---
EXAMINATION: XR chest 2V DATE: 06/16/2020 12:24 INDICATION: Acute onset chest pain TECHNIQUE: Frontal and lateral views of the chest are obtained COMPARISON: 06/13/2020 FINDINGS: The lungs are hyperinflated but free of acute opacities. There is no pleural effusion or pn eumothorax. The cardiomediastinal silhouette is normal. There is severe thoracic spondylosis. Coronar y artery stents are noted. IMPRESSION: 1. Hyperinflation without acute cardiopulmonary abnormality. Reviewed, dictated and finalized at location B.
--- NOTE | 2020-06-16 11:54 | ECG_ITS ---
Measurements Intervals [place] Rate: 69 P: 86 NH: 163 QRS: -39 QRSD: 98 T: 48 QT: 461 QTc: 494 Interpretive Statements SINUS RHYTHM WITH SINUS ARRHYTHMIA ATRIAL PREMATURE COMPLEXES LEFT AXIS DEVIATION ANTEROSEPTAL INFARCT, AGE INDETERMINATE ABNORMAL ECG Electronically Signed On 06-16-2020 12:33:29 CDT by Marlon Joe D.O.
--- NOTE | 2020-06-16 12:05 | ED.CHESTPAIN ---
HPI - Chest Pain General Chief Complaint: Chest Pain Stated Complaint: CP Time Seen by Provider: 06/16/20 12:01 Source: RN notes reviewed and old records reviewed History of Present Illness HPI narrative: Patient presents emergency department from home via EMS for chest and abdominal pain. Patient states that she awoke this morning with pain in the epigastric region of her abdomen with pain radiating from the abdomen up into the chest. Associated with mild nausea. Patient denies any fevers or chills shortness of breath diarrhea or any other symptoms. Patient tried taking 2 nitros at home with minimal relief. Denies any other symptoms at this time Related Data Home Medications Medication Instructions Recorded Confirmed B Complex Plus Vitamin C 150 mg PO DAILY 09/01/19 06/05/20 Entresto 1 tablet PO Q12H 09/01/19 06/05/20 albuterol sulfate 2 puff INHALATION Q4-6H PRN 09/01/19 06/05/20 alprazolam 0.5 mg PO TID PRN 09/01/19 06/05/20 ascorbic acid (vitamin C) [Vitamin 500 mg PO DAILY 09/01/19 06/05/20 C With Debora Hips] cholecalciferol (vitamin D3) 5,000 unit PO DAILY 09/01/19 06/05/20 clopidogrel 75 mg PO DAILY 09/01/19 06/05/20 furosemide 40 mg PO DAILY 09/01/19 06/05/20 hydralazine 10 mg PO TID 09/01/19 06/05/20 levothyroxine 125 mcg PO DAILY 09/01/19 06/05/20 metoprolol succinate 50 mg PO DAILY 09/01/19 06/05/20 nitroglycerin 0.4 mg SUBLINGUAL Q5M PRN 09/01/19 06/05/20 pantoprazole 40 mg PO DAILY 09/01/19 06/05/20 trazodone 100 mg PO HS 09/01/19 06/05/20 ferrous sulfate 325 mg PO DAILY 09/06/19 06/05/20 prednisolone acetate 1 % RIGHTEYE DAILY 09/06/19 06/05/20 acetaminophen 500 mg PO Q4-6H PRN 12/01/19 06/05/20 atorvastatin 40 mg PO DAILY 12/12/19 06/05/20 gabapentin 600 mg PO DAILY 03/20/20 06/05/20 oxybutynin chloride 10 mg PO DAILY 03/20/20 06/05/20 acyclovir 1,000 mg PO DAILY 05/31/20 06/05/20 Allergies Allergy/AdvReac Type Severity Reaction Status Date / Time Penicillins Allergy Unknown Rash Verified 06/13/20 21:28 Review of Systems Review of Systems: Narrative: Gen.: Denies fevers or chills ENT: Denies congestion Respiratory: Denies shortness of breath or cough CV: Reports chest pain GI: Per abdominal pain nausea denies vomiting and diarrhea Musculoskeletal: Denies back pain or muscle pain Neuro: Denies numbness, tingling, weakness or focal weakness Skin: Denies rash Except as documented, all other systems reviewed and negative [facility] Past Medical History Medical History Chronic anemia Chronic kidney disease, stage 3 Congestive heart failure Systolic and diastolic congestive heart failure Echo 11/27 showed EF 50%. Echo 01/14/2019: EF measured at 39%. September 2018 EF was 25%. Echo 12/02/2019 EF 50-55%. Grade 1 diastolic function. Coronary artery disease With multivessel surgical revascularization with PCI at [place] October 2017. Cardiac catheterization 10/17/2018-mild preserved intra-stent luminal diameter Current use of skilled nursing anticoagulation Depression with anxiety Detached retina Right-sided, x2. Frequent headaches GERD (gastroesophageal reflux disease) With history of esophageal stricture requiring dilatation. History of GI bleed History of rectal polyps Hyperlipidemia Hypertension Hypothyroidism TSH in November 2019 was a bit low, with normal T4. IBS (irritable bowel syndrome) Ischemic cardiomyopathy Mitral valve prolapse Myasthenia gravis Questionable history of. Obstructive sleep apnea Ocular herpes zoster History of shingles to the left eye, on chronic antiviral therapy. Paroxysmal atrial fibrillation No longer on long-term anticoagulation due to history of falls. Peripheral neuropathy Rectal polyp Restless leg syndrome Shingles Solitary rectal ulcer syndrome Stage III chronic kidney disease Social History Social History Social History: Pt would like her , Annie
[2020-06-16 12:20] LABS: Basophils Percent Auto 0.3 % (0.2-1.2); Hemoglobin 9.1 g/dL (12.0-15.0); Immature Granulocyte Absolute 0.01 K/mm3 (0.00-0.031); Immature Granulocyte Percent A 0.3 % (0-0.5); Lymphocytes Absolute Auto 0.34 K/mm3 (0.9-3.2); Lymphocytes Percent Auto 10.2 % (18.3-44.2); Mean Corpuscular HGB Conc 33.7 g/dl (32-36); Mean Corpuscular Hemoglobin 32.4 pg (26-34); Mean Corpuscular Volume 96.1 fl (80-100); Mean Platelet Volume 8.9 fl (7.4-10.4); Monocytes Absolute Auto 0.3 K/mm3 (0.1-0.6); Monocytes Percent Auto 10.2 % (2.6-8.5); Neutrophils Absolute Auto 2.6 K/mm3 (1.3-6.7); Platelet Count Result 275 k/mm3 (150-375); Red Blood Count 2.81 M/mm3 (4.2-5.4); Red Cell Distribution Width 11.2 % (11.5-14.5); White Blood Count 3.3 K/mm3 (4.5-10.0)
[2020-06-16 12:28] LABS: INR 1.1; Prothrombin Time 13.6 Seconds (11.1-14.7)
[2020-06-16 12:29] LABS: Partial Thromboplastin Time 24.7 SECONDS (22.3-36.8)
[2020-06-16 12:31] LABS: Alanine Aminotransferase 17 U/L (4-35); Albumin Level 3.8 g/dL (3.5-5.1); Alkaline Phosphatase 47 U/L (38-126); Aspartate Amino Transferase 35 U/L (14-36); Bilirubin,Total 0.4 mg/dL (0.2-1.3); Lipase 139 U/L (23-300)
[2020-06-16 12:32] LABS: Anion Gap 8 mmol/L (8-16); Blood Urea Nitrogen 13 mg/dL (7-17); Calcium 8.4 mg/dL (8.4-10.2); Carbon Dioxide 25 mmol/L (22-30); Chloride 89 mmol/L (98-107); Estimated CRCL calculation 16 ml/min; Estimated Glomerular Filt Rate 25; Glucose 127 mg/dL (65-105); Potassium 3.2 mmol/L (3.4-5.0); Sodium 122 mmol/L (137-145)
[2020-06-16 12:43] LABS: Troponin I < 0.012 ng/mL (0.000-0.034)
[2020-06-16] MEDS: POTASSIUM CHLORIDE 20 MEQ TABLET PO (12:50)
[2020-06-16] MEDS: SODIUM CHLORIDE 0.9% IV 1,000 ML 999 ML IV CONT (14:02)
[2020-06-16 14:41] LABS: Add Urine Microscopic? YES; Appearance Urine Clear (Clear); Bacteria Urine Trace /hpf; Bilirubin Urine Negative (Negative); Blood Urine Negative (Negative); Color Urine Yellow (Yellow); Glucose Urine UA Negative (Negative); Ketones Urine Negative (Negative); Leukocyte Esterase Ur Negative LEU/UL (Negative); Mucus Urine Rare /lpf; Nitrate Urine Negative (Negative); Protein Urine Negative (Negative); RBC Urine 0-2 /hpf (0-2); Specific Grav Ur 1.008 (1.001-1.035); Squamous Epithelial Cell Urine Occasional /hpf (Few); Urobilinogen Urine Negative mg/dL (<2.0); WBC Urine 0-3 /hpf
--- NOTE | 2020-06-16 16:09 | PC.NURSE ---
This patient, Dhara Harry, was admitted to 3 [facility] Surg Room 304-01 on 06/16/20 @ 1605. Patient/family oriented to hospital policies and general routines including ID bracelet, bed and alarms, visiting hours, pain management, procedures, bathroom and other care routines, personal items, smoking policy, room service/diet, and visiting hours. Valuables list has been completed. Information on how to activate the Rapid Response Team has been discussed. Patient/Family are encouraged to report perceived risks to care and to ask questions if they do not understand what they are told or what they should do.
[2020-06-16 17:03] LABS: Sodium 125 mmol/L (137-145)
[2020-06-16 17:24] LABS: Troponin I < 0.012 ng/mL (0.000-0.034)
[2020-06-16 18:01] LABS: Creatinine Urine 16.2 mg/dL; Total Protein Urine Random 15 mg/dL
[2020-06-16 18:02] LABS: Sodium Urine Random 83 meq/L
--- NOTE | 2020-06-16 18:04 | PM.CNNEP ---
Assessment and Plan Assessment and plan (1) Hyponatremia: Code(s): E87.1 - Hypo-osmolality and hyponatremia Status: Acute Assessment and Plan: noted on the last few hospitalizations presumably related to overdiuresis - urine sodium noted but difficult to interpret since on oral diuretic therapy - sodium up to 125 after IVF given in ER repeat sodium level in 4 hours with trial of further gentle IVFs TSH and cortisol noted check serum/urine osmolality as well as UPE and SPE follow trend of sodium (2) Chronic kidney disease, stage 3: Code(s): N18.3 - Chronic kidney disease, stage 3 (moderate) Status: Acute Assessment and Plan: baseline creatinine runs ~ 1.2 - 1.8mg/dl creatinine mildly elevated above baseline follow renal function with gentle IVFs (3) Hypokalemia: Code(s): E87.6 - Hypokalemia Status: Acute Assessment and Plan: presumably related to diuresis replace as needed check magnesium (4) Chest pain: Code(s): R07.9 - Chest pain, unspecified Status: Acute Assessment and Plan: recurrent issues with previous work-up and evaluation done troponins noted symptom control (5) Abdominal pain: Code(s): R10.9 - Unspecified abdominal pain Status: Acute Assessment and Plan: recurrent issue as well negative evaluation on previous hospital admissions as well continue supportive therapy Will continue to follow. History of Present Illness Reason for Consult Consult date: 06/16/20 Reason for consult: hyponatremia Chief Complaint Chief complaint: Hyponatremia, acute renal insufficiency History of Present Illness Narrative: The patient is an 80 year old female with an extensive past medical history as outlined below who presents [facility] ER from home via EMS for chest and abdominal pain. From review of her records, these symptoms/problems appear to be somewhat chronic in nature with several recent presentations to the ER as well as hospitalizations with work-up/evaluation noted to date. In any case, she reported waking up this AM with pain in her epigastric area with radiating from her abdomen all the way up to the center of her chest. Associated symptoms included mild nausea but no vomiting, diarrhea, cough, fevers, or chills. When these symptoms started, she took 2 SL nitroglycerin tabs with no real imrpovemen in symptoms. Due to the persistence of these symptoms, she presented to the ER for further evaluation. Workup and evaluation in the emergency room was significant for the above complaints noted but she was otherwise hemodynamically stable. Routine blood test demonstrated a number normal troponin but were significant for worsening hyponatremia in comparison to when she was last hospitalized just recently in association with mild worsening of her renal insufficiency. Given these acute changes in her blood work, coupled with her complaints as mentioned, she was admitted to the hospital for further evaluation and therapy. Renal consultation was requested due to her hyponatremia in association with her mild worsening kidney disease. Given evidence today, the concern is that her hyponatremia may be related to over-diuresis and although it should be noted that her low sodium level has been present as far back as early May 2020. Previous to that, her sodium level was well within normal limits. She did receive a L of IV fluids (normal saline) in the ER, and her repeat sodium level on the floor is now up to 125 millimoles per L. Currently, at the time of my evaluation, she does not appear to be any acute distress. Review of Systems Review of Systems: Narrative: As per HPI. [facility] Past Medical History Medical History Chronic anemia Chronic kidney disease, stage 3 Congestive heart failure Systolic and diastolic congestive
[2020-06-16] MEDS: SODIUM CHLORIDE 0.9% IV 1,000 ML 50 ML IV CONT (18:59)
[2020-06-16 19:13] LABS: Troponin I < 0.012 ng/mL (0.000-0.034)
--- NOTE | 2020-06-16 21:00 | PM.IMHP ---
H&P: HPI History of Present Illness Date/Time: 06/16/20 21:00 Chief complaint: Chest and abdominal pain. Narrative: Dhara Harry is an 80-year-old female with multiple medical problems including congestive heart failure, chronic kidney disease, chronic anemia, paroxysmal atrial fibrillation, hypertension, hypothyroidism, coronary artery disease, and several other comorbidities who presented to the emergency department earlier this afternoon via EMS from home for evaluation of abdominal and chest pain. She has chronic pain extending from my chest down to my pelvis and around to the back that she attributes to GERD and esophageal diverticulosis. It is not uncommon for her to have this pain and seek care in the emergency department, and most of the time she is able to be discharged home. More recently her labs have shown a gradual decline in her sodium level, now down to 122. She tells me she has been eating and drinking as per usual in that her weight is steady at around 103 lb. She does not feel dehydrated and conversely she does not feel as though she is edematous. She is on a host of medications and I am not certain if any of those are new. In any event, she was admitted today for workup of her hyponatremia and mild increase in creatinine. At the time my evaluation she has no active pain or complaints. She specifically denies headache, confusion, fatigue, nausea, and vomiting. Review of Systems Review of Systems: Narrative: 12 systems were reviewed with pertinent positives and negatives as per HPI. She denies fever, chills, and sweats. No recent cold or flu symptoms. She denies cough and shortness of breath. Except as documented, all other systems were reviewed and are negative. [facility] Past Medical History Medical History (Updated 06/16/20 @ 22:42 by Sunshine Bowman PA-C) Chronic anemia Chronic kidney disease, stage 3 Congestive heart failure Systolic and diastolic congestive heart failure Echo 11/27 showed EF 50%. Echo 01/14/2019: EF measured at 39%. September 2018 EF was 25%. Echo 12/02/2019 EF 50-55%. Grade 1 diastolic function. Coronary artery disease With multivessel surgical revascularization with PCI at [place] October 2017. 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 Frequent headaches GERD (gastroesophageal reflux disease) With history of esophageal stricture requiring dilatation. History of GI bleed History of rectal polyps Hyperlipidemia Hypertension Hypothyroidism TSH in November 2019 was a bit low, with normal T4. Irritable bowel syndrome Ischemic cardiomyopathy Mitral valve prolapse Myasthenia gravis Questionable history of. Obstructive sleep apnea Ocular herpes zoster History of shingles to the left eye, on chronic antiviral therapy. Paroxysmal atrial fibrillation No longer on long-term anticoagulation due to history of falls. Peripheral neuropathy Rectal polyp Restless leg syndrome Shingles Solitary rectal ulcer syndrome Stage III chronic kidney disease Surgical History Surgical History Status post appendectomy Status post bilateral hip replacements Status post bilateral knee replacements Status post breast biopsy Bilateral with benign histology. Status post carpal tunnel release Status post cataract extraction Bilateral. Status post cholecystectomy Status post laminectomy Lumbar spine. Status post LASIK surgery Status post rotator cuff repair Status post tonsillectomy Family History Family History Mother Cerebrovascular accident Diabetes mellitus Hypertension Sibling Cerebrovascular accident Other Acute myocardial infarction Social History Social History (Updated 06/16/20 @ 22:32 by Sunshine Bowman PA-C) Social
[2020-06-16 21:17] LABS: Sodium 124 mmol/L (137-145)
[2020-06-16 23:43] LABS: Thyroid Stimulating Hormone Reflex 0.918 uIU/mL (0.465-4.68)
[2020-06-17] VITALS (8 sets, daily range): BP systolic 113–140; BP diastolic 56–83; PULSE 66–98; RESP 18–20; TEMP 36.3–36.6; O2SAT 97–98
[2020-06-17] MEDS: traZODone HCL 50 MG TABLET 100 MG PO (00:03)
[2020-06-17] MEDS: SACUBITRIL/VALSARTAN 24-26 MG TABLET 1 TAB PO ×2 (00:03→09:27)
[2020-06-17 01:19] LABS: Creatinine Urine 25.6 mg/dL; Sodium Urine Random 67 meq/L; Urea Random Urine 119 MG/DL
[2020-06-17] MEDS: ACETAMINOPHEN 500 MG TABLET PO (02:21)
[2020-06-17] MEDS: ALPRAZolam 0.5 MG TABLET PO (02:21)
[2020-06-17 05:53] LABS: Basophils Percent Auto 0.3 % (0.2-1.2); Hematocrit 26.6 % (37.0-47.0); Immature Granulocyte Absolute 0.02 K/mm3 (0.00-0.031); Immature Granulocyte Percent A 0.7 % (0-0.5); Lymphocytes Absolute Auto 0.61 K/mm3 (0.9-3.2); Lymphocytes Percent Auto 20.9 % (18.3-44.2); Mean Corpuscular HGB Conc 33.8 g/dl (32-36); Mean Corpuscular Hemoglobin 32.3 pg (26-34); Mean Corpuscular Volume 95.3 fl (80-100); Mean Platelet Volume 8.8 fl (7.4-10.4); Monocytes Absolute Auto 0.5 K/mm3 (0.1-0.6); Monocytes Percent Auto 15.4 % (2.6-8.5); Neutrophils Absolute Auto 1.8 K/mm3 (1.3-6.7); Neutrophils Percent Auto 62.7 % (45.5-73.1); Platelet Count Result 254 k/mm3 (150-375); Red Blood Count 2.79 M/mm3 (4.2-5.4); Red Cell Distribution Width 11.3 % (11.5-14.5); White Blood Count 2.9 K/mm3 (4.5-10.0)
[2020-06-17] MEDS: SERTRALINE HCL 25 MG TABLET PO (06:00)
[2020-06-17] MEDS: ACYCLOVIR 200 MG CAPSULE 1000 MG PO (06:00)
[2020-06-17 06:06] LABS: Anion Gap 5 mmol/L (8-16); Blood Urea Nitrogen 10 mg/dL (7-17); Calcium 8.1 mg/dL (8.4-10.2); Carbon Dioxide 23 mmol/L (22-30); Chloride 99 mmol/L (98-107); Estimated CRCL calculation 20 ml/min; Estimated Glomerular Filt Rate 33; Glucose 83 mg/dL (65-105); Magnesium 1.9 mg/dL (1.6-2.3); Phosphorus 2.9 mg/dL (2.5-4.5); Potassium 3.6 mmol/L (3.4-5.0); Sodium 127 mmol/L (137-145)
[2020-06-17] MEDS: LEVOTHYROXINE SODIUM 125 MCG TABLET PO (06:29)
[2020-06-17] MEDS: ASCORBIC ACID 500 MG TABLET PO (09:23)
[2020-06-17] MEDS: FERROUS SULFATE 324 MG TABLET PO (09:23)
[2020-06-17] MEDS: CHOLECALCIFEROL 1,000 UNITS TABLET 5000 UNITS PO (09:24)
[2020-06-17] MEDS: hydrALAZINE 10 MG TABLET PO ×2 (09:25→11:52)
[2020-06-17] MEDS: METOPROLOL SUCCINATE EXT REL 50 MG TABCR PO (09:25)
[2020-06-17] MEDS: VITAMIN B COMPLEX/VIT C CAPSULE 1 EACH PO (09:27)
[2020-06-17] MEDS: CLOPIDOGREL BISULFATE 75 MG TABLET PO (11:53)
--- NOTE | 2020-06-17 13:31 | PM.PNNEP ---
Progress Note: A&P Assessment and Plan (1) Hyponatremia: Code(s): E87.1 - Hypo-osmolality and hyponatremia Status: Acute Assessment and Plan: noted on the last few hospitalizations presumably related to overdiuresis - urine sodium noted but difficult to interpret since on oral diuretic therapy - sodium up to 127 with gentle IVFs TSH and cortisol noted follow-up serum/urine osmolality as well as UPE and SPE - however, doubt this will change the fact this seems like hypovolemic hyponatremia follow trend of sodium (2) Chronic kidney disease, stage 3: Code(s): N18.3 - Chronic kidney disease, stage 3 (moderate) Status: Acute Assessment and Plan: baseline creatinine runs ~ 1.2 - 1.8mg/dl creatinine mildly elevated above baseline follow renal function with gentle IVFs (3) Hypokalemia: Code(s): E87.6 - Hypokalemia Status: Acute Assessment and Plan: presumably related to diuresis replace as needed (4) Chest pain: Code(s): R07.9 - Chest pain, unspecified Status: Acute Assessment and Plan: recurrent issues with previous work-up and evaluation done troponins noted symptom control (5) Abdominal pain: Code(s): R10.9 - Unspecified abdominal pain Status: Acute Assessment and Plan: recurrent issue as well negative evaluation on previous hospital admissions as well continue supportive therapy Not opposed to discharge from my perspective -- would discharge on lower diuretics on the hope this maintains her volume status but presets drop in sodium. Will continue to follow. Subjective Date/time seen: 06/17/20 13:31 Appears to be doing reasonably well -- sodium has improved with gentle IVF hydration; no apparent issues or complaints voiced at this time. Exam Narrative: Exam Narrative: General: WD/WN female in NAD Heart: normal S1 and S2; no rub Lungs: clear to auscultation Abdomen: soft, nontender, nondistended, positive bowel sounds Extremities: no cyanosis or clubbing; no edema Skin: warm and dry Objective Data Vital Signs Vital Signs: Vital Signs Temp Pulse Resp BP Pulse Ox 06/17/20 12:00 66 06/17/20 10:15 36.3 C L 72 20 113/56 L 98 06/17/20 09:25 98 06/17/20 07:50 86 06/17/20 06:00 36.6 C 72 20 140/83 98 06/17/20 04:00 66 06/17/20 00:00 92 06/16/20 22:00 36.4 C L 73 18 144/77 H 96 06/16/20 20:00 101 H 06/16/20 15:49 82 18 153/66 H 99 06/16/20 15:45 36.2 C L 61 18 178/66 H 99 Intake/Output Intake/Output: Intake & Output 06/14/20 06/15/20 06/16/20 06/17/20 23:59 23:59 23:59 23:59 Intake Total 1240 750 Output Total 400 Balance 1240 350 Meds/Results Medications: Active Medications Generic Name Dose Route Start Last Admin Trade Name Freq PRN Reason Stop Dose Admin Acetaminophen 500 mg 06/16/20 23:03 06/17/20 02:21 Tylenol Tablet PO 500 mg Q4H PRN Administration Pain Rated 1-3 Acyclovir 1,000 mg 06/17/20 02:05 06/17/20 06:00 Zovirax Po PO 1,000 mg HS JESSICA Administration Albuterol 2 puff 06/16/20 22:53 Proventil Hfa INHALATION Q4-6H PRN Shortness Of Breath Or Wheezing Alprazolam 0.5 mg 06/16/20 22:53 06/17/20 02:21 Xanax PO 0.5 mg TID PRN Administration Anxiety Ascorbic Acid 500 mg 06/17/20 09:00 06/17/20 09:23 Vitamin C PO 500 mg DAILY JESSICA Administration Clopidogrel Bisulfate 75 mg 06/17/20 09:00 06/17/20 11:53 Plavix PO 75 mg DAILY JESSICA Administration Ferrous Sulfate 324 mg 06/17/20 08:00 06/17/20 09:23 Ferrous Sulfate PO 324 mg DAILY@0800 JESSICA Administration Hydralazine HCl 10 mg 06/17/20 09:00 06/17/20 11:52 Apresoline Tablet PO 10 mg TID JESSICA Administration Sodium Chloride 1,000 mls @ 50 mls/hr 06/16/20 18:20 06/16/20 18:59 Normal Saline Iv IV CONT 50 mls/hr
[2020-06-17 13:57] LABS: Sodium 127 mmol/L (137-145)
[2020-06-17] MEDS: SODIUM CHLORIDE 0.9% IV 1,000 ML 50 ML IV CONT (14:03)
--- NOTE | 2020-06-17 14:17 | PC.NURSE ---
On 06/17/20, the student, [ Nathaniel Low], provided care and completed [facility] documentation on this patient. I have reviewed the student's documentation and agree with the findings.
--- NOTE | 2020-06-17 15:26 | PM.DS ---
DS: Admitting Diagnosis Admitting Diagnosis Admitting Diagnosis: Chest and abdominal pain. DS: Discharge Diagnosis Discharge Diagnosis (1) Hyponatremia: Code(s): E87.1 - Hypo-osmolality and hyponatremia Status: Acute Assessment and Plan: Discharge Summary (Date of service 06/17/20): Mrs. Harry is an 80-year-old female with PMH significant for congestive heart failure, chronic kidney disease, chronic anemia, paroxysmal atrial fibrillation, hypertension, hypothyroidism, and coronary artery disease who presented to the emergency department for the evaluation of abdominal and chest pain. She has GERD and her pain is chronic. She was just discharged 06/09/20 for evaluation of this pain. She was seen by cardiology and underwent Lexiscan 06/07/20 with no evidence of ischemia or infarct at rest or with stress. She has had numerous abdominal CT/CTA/MRI for evaluation with no etiology. She was also seen by GI and UGI and small-bowel follow-through 06/08 demonstrated presbyesophagus with slightly delayed esophageal emptying. Initial labs in the emergency department 06/16/20 demonstrated sodium of 122, Cr 1.9, and BUN 21. Troponins were negative x3. EKG was unchanged with no evidence of acute ST/T abnormalities. She was admitted for hyponatemia and JOSÉ MIGUEL. Hyponatremia and JOSÉ MIGUEL were felt to be due to over diuresis. Diuretics were held and she received gentle IV fluid rehydration. Dr. Ely was consulted for further evaluation and workup. Dr. Ely recommended we reduce her lasix dose and she verbalized understanding. Sodium improved with IV fluids. Creatinine improved significantly following gentle IV fluids. She felt well with no significant pain. She was tolerating her diet and bowels were regular. She was discharged in stable condition on the afternoon of 06/17/20. She was given a lab order for repeat BMP to check sodium and renal function 06/21/20. (2) Chronic kidney disease, stage 3: Code(s): N18.3 - Chronic kidney disease, stage 3 (moderate) Status: Acute (3) Chronic chest pain: Code(s): R07.9 - Chest pain, unspecified; G89.29 - Other chronic pain Status: Acute (4) Chronic abdominal pain: Code(s): R10.9 - Unspecified abdominal pain; G89.29 - Other chronic pain Status: Acute (5) Hypokalemia: Code(s): E87.6 - Hypokalemia Status: Resolved (6) Congestive heart failure: Qualifiers: Heart failure chronicity: chronic Heart failure type: unspecified Qualified Code(s): I50.9 - Heart failure, unspecified Code(s): I50.9 - Heart failure, unspecified Status: Chronic DS: Summary Hospital Course Reason for hospitalization: Chronic abdominal and chest pain, hyponatremia Hospital Course: As above. Status at Discharge Functional status at discharge: independent ambulation Overall status at discharge: patient is back to baseline Time Spent with Patient Time attestation: Total time spent providing and/or coordinating discharge services: 35 minutes Exam Narrative: Exam Narrative: Vitals at presentation: Temp Pulse Resp BP Pulse Ox 97.7 F 66 18 142/75 H 99 06/16/20 11:49 06/16/20 11:49 06/16/20 11:49 06/16/20 11:49 06/16/20 11:49 Vitals at discharge: Temp Pulse Resp BP Pulse Ox 97.5 F L 77 18 129/69 97 06/17/20 14:00 06/17/20 14:00 06/17/20 14:00 06/17/20 14:00 06/17/20 14:00 General: Very thin, frail-appearing, well-developed 80 y.o. female lying in the semi-recumbent position in bed in no acute distress. HEENT: Normocephalic and atraumatic. Sclerae anicteric. Conjunctiva without injection or exudate. EOMI. Oral mucosa moist. Neck: Supple. Cardiac: Regular rate and rhythm. S1 and
[2020-06-23 05:30] LABS: Albumin 3.4 g/dL (3.8-4.8); Alpha 1 Globulin 0.2 g/dL (0.2-0.3); Alpha 2 Globulin 0.4 g/dL (0.5-0.9); Beta 1 Globulin 0.3 g/dL (0.4-0.6); Gamma Globulin 0.6 g/dL (0.8-1.7)
[2020-06-23 06:32] LABS: Osmolality, Urine 213 mOsm/kg (50-1200)
[2020-06-23 19:53] LABS: Creatinine, Random Urine 17 mg/dL (20-275); Total Protein/Creatinine Ratio 294 mg/g creat (21-161)
[2020-06-24 12:37] LABS: Chloride Rand Ur 80 mmol/L (32-290); Chloride/Creatinine Rand Ur 471 (38-318); Creatinine Random Urine 17 mg/dL (20-275)
== END 2020-06-17 17:30 | disposition home health service (06) ==
LOC: ANHED 14:51 → ANH3MEDSUR 15:06
PROVIDERS: General Practice; Internal Medicine Nephrology; Physician Assistant; Admitting Provider Internal Medicine; Emergency Provider Emergency Medicine; PCP Family Medicine; Visit Provider Hospitalist
DX: E87.1 Hypo-osmolality and hyponatremia (principal); R07.9 Chest pain, unspecified; I13.0 Hypertensive heart and chronic kidney disease with heart failure and stage 1 through stage 4 chronic kidney disease, or unspecified chronic kidney disease; N28.9 Disorder of kidney and ureter, unspecified; N18.3 Chronic kidney disease, stage 3 (moderate); I50.40 Unspecified combined systolic (congestive) and diastolic (congestive) heart failure; I25.10 Atherosclerotic heart disease of native coronary artery without angina pectoris; G47.33 Obstructive sleep apnea (adult) (pediatric); K21.9 Gastro-esophageal reflux disease without esophagitis; R10.13 Epigastric pain; Z96.643 Presence of artificial hip joint, bilateral; Z96.653 Presence of artificial knee joint, bilateral
CPT/HCPCS: 36415; 71046; 80048; 80076; 81001; 81050; 82436; 82533; 82570; 83690; 83735; 83930; 83935; 84100; 84155; 84156; 84165; 84166; 84295; 84300; 84443; 84484; 84540; 85025; 85027; 85610; 85730; 93005; 96360; 96361; 99285; A9270; G0378; J7030

== ENCOUNTER 2020-06-20 21:07 | Emergency (ER) | payer MEDICARE, SELFPAY ==
--- NOTE | ~2020-06-20 | CT_ITS ---
CT lumbar spine wo con DATE: 06/21/2020 01:37 INDICATION: Fall. Low back pain. TECHNIQUE: Axial images through the lumbar spine; sagittal and coronal reconstructions. Exam dose: 338.51 mGy-cm total exam DLP. COMPARISON: 04/28/2011 MRI lumbar spine FINDINGS: Diffuse osteopenia. There is levoscoliosis. There is degenerative disc disease throughout the lumbar spine, particularly pronounced on the right at L3-4 and throughout the L4-5 interspace on the left at L5-S1. There is associated minimal retrolisthesis at L4-5 and L5-S1. There is severe osteoarthritic change at the apophyseal joints with associated grade 1 anterolisthesi s at L2-3 and L3-4. 1.3 cm sclerotic focus of the left ilium, likely a bone island if there is no known primary malignanc y. The sacroiliac joints are intact. Bilateral total hip arthroplasty. Status post cholecystectomy. Diverticulosis of the colon. IMPRESSION: Levoscoliosis Osteopenia Severe multilevel degenerative disc disease Severe lumbar facet degenerative changes with associated grade 1 anterolisthesis at L2-3 and L3-4 Reviewed, dictated and finalized at [facility]. Reviewed, dictated and finalized at location [facility]. IMPRESSION: Levoscoliosis Osteopenia Severe multilevel degenerative disc disease Severe lumbar facet degenerative changes with associated grade 1 anterolisthesi s at L2-3 and L3-4
--- NOTE | ~2020-06-20 | XR_ITS ---
XR sacrum coccyx min 2V DATE: 06/21/2020 01:00 INDICATION: Fall. Sacrum and coccyx pain. TECHNIQUE: AP, angled AP and lateral views COMPARISON: None FINDINGS: There is diffuse osteopenia. There is a transitional lumbosacral vertebra. Rotatory moderate levoscoliosis of the lumbar spine. There is severe degenerative disc disease at the included mid and lower lumbar spine and grade 2 ante rolisthesis at a mid lumbar interspace. No fracture or bone destruction of the sacrum or coccyx is evident. Normal alignment at the sacroilia c joints and pubic symphysis. Status post bilateral total hip arthroplasty. Numerous bilateral calcified pelvic phleboliths. Surgical clips overlie the medial right midabdomen. IMPRESSION: No fracture or bone destruction of the sacrum or coccyx is evident Transitional lumbosacral vertebra Rotatory levoscoliosis and severe multilevel degenerative disc disease of the lumbar spine Grade 2 anterolisthesis at a mid lumbar level Status post bilateral total hip arthroplasty Reviewed, dictated and finalized at location [facility]. IMPRESSION: No fracture or bone destruction of the sacrum or coccyx is evident Transitional lumbosacral vertebra Rotatory levoscoliosis and severe multilevel degenerative disc disease of the l umbar spine Grade 2 anterolisthesis at a mid lumbar level Status post bilateral total hip arthroplasty
[2020-06-20 21:08] VITALS: BP 158/84; PULSE 66; RESP 12; O2SAT 97
--- NOTE | 2020-06-20 21:41 | ED.ABDPAIN ---
HPI - Abdominal Pain General Chief Complaint: Abdominal Pain Stated Complaint: burning in abd Time Seen by Provider: 06/20/20 21:30 History of Present Illness HPI narrative: 80 yo female w/ multiple medical comorbidities presnets with abdominal pain. She has burning epigastric pain radiaing fro the chest to the pelvis. Severe. Associated with SOB. She has been seen in the ED by myself and others enumerable times for the same complaint, and in fact been admitted and had extensive work-ups twice recently that have not revealed any acute findings to explain her pain. The pain is often relieved by a GI cocktail. Additionally she fell onto her buttocks while walking down the stairs to the ambulance. She does not report any pain at this time. She did not strike her head. Related Data Home Medications Medication Instructions Recorded Confirmed B Complex Plus Vitamin C 150 mg PO DAILY 09/01/19 06/16/20 Entresto 1 tablet PO Q12H 09/01/19 06/16/20 albuterol sulfate 2 puff INHALATION Q4-6H PRN 09/01/19 06/16/20 alprazolam 0.5 mg PO TID PRN 09/01/19 06/16/20 ascorbic acid (vitamin C) [Vitamin 500 mg PO DAILY 09/01/19 06/16/20 C With Debora Hips] cholecalciferol (vitamin D3) 5,000 unit PO DAILY 09/01/19 06/16/20 clopidogrel 75 mg PO DAILY 09/01/19 06/16/20 hydralazine 10 mg PO TID 09/01/19 06/16/20 levothyroxine 125 mcg PO DAILY 09/01/19 06/16/20 metoprolol succinate 50 mg PO DAILY 09/01/19 06/16/20 nitroglycerin 0.4 mg SUBLINGUAL Q5M PRN 09/01/19 06/16/20 trazodone 100 mg PO HS 09/01/19 06/16/20 ferrous sulfate 325 mg PO DAILY 09/06/19 06/16/20 prednisolone acetate 1 % RIGHTEYE DAILY 09/06/19 06/16/20 acetaminophen 500 mg PO Q4-6H PRN 12/01/19 06/16/20 oxybutynin chloride 10 mg PO DAILY 03/20/20 06/16/20 acyclovir 1,000 mg PO DAILY 05/31/20 06/16/20 sertraline 25 mg PO DAILY 06/16/20 06/16/20 Allergies Allergy/AdvReac Type Severity Reaction Status Date / Time Penicillins Allergy Unknown Rash Verified 06/16/20 16:39 Review of Systems Review of Systems: All systems reviewed & are unremarkable except as noted in HPI and below Constitutional: Constitutional: Denies fever(s) and Reports weakness ENT: Reports sore throat Cardiovascular: Cardiovascular: Reports chest pain Respiratory: Respiratory: Reports dyspnea Gastrointestinal: Gastrointestinal: Reports abdominal pain Neurologic: Reports weakness [facility] Past Medical History Medical History Chronic anemia Chronic kidney disease, stage 3 Congestive heart failure Systolic and diastolic congestive heart failure Echo 11/27 showed EF 50%. Echo 01/14/2019: EF measured at 39%. September 2018 EF was 25%. Echo 12/02/2019 EF 50-55%. Grade 1 diastolic function. Coronary artery disease With multivessel surgical revascularization with PCI at [place] October 2017. 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 Frequent headaches GERD (gastroesophageal reflux disease) With history of esophageal stricture requiring dilatation. History of GI bleed History of rectal polyps Hyperlipidemia Hypertension Hypothyroidism TSH in November 2019 was a bit low, with normal T4. Irritable bowel syndrome Ischemic cardiomyopathy Mitral valve prolapse Myasthenia gravis Questionable history of. Obstructive sleep apnea Ocular herpes zoster History of shingles to the left eye, on chronic antiviral therapy. Paroxysmal atrial fibrillation No longer on long-term anticoagulation due to history of falls. Peripheral neuropathy Rectal polyp Restless leg syndrome Shingles Solitary rectal ulcer syndrome Stage III chronic kidney disease Surgical History Surgical History Status post appendectomy Status post bilateral hip replacements Status post bilateral knee repl
--- NOTE | 2020-06-20 22:14 | ECG_ITS ---
Measurements Intervals [place] Rate: 72 P: NV: 0 QRS: -12 QRSD: 98 T: 53 QT: 417 QTc: 458 Interpretive Statements WANDERING PACEMAKER ATRIAL PREMATURE COMPLEXES VOLTAGE CRITERIA FOR LVH ANTEROSEPTAL INFARCT, AGE INDETERMINATE BASELINE ARTIFACT- I, II, AVR, AVL, AVF, V5 ABNORMAL ECG Electronically Signed On 06-21-2020 6:43:04 CDT by Marlon Joe D.O.
[2020-06-20 22:45] LABS: Basophils Percent Auto 0.4 % (0.2-1.2); Eosinophils Percent Auto 0.4 % (0-4.4); Hemoglobin 9.6 g/dL (12.0-15.0); Lymphocytes Absolute Auto 0.66 K/mm3 (0.9-3.2); Lymphocytes Percent Auto 28.2 % (18.3-44.2); Mean Corpuscular HGB Conc 33.1 g/dl (32-36); Mean Corpuscular Hemoglobin 32.2 pg (26-34); Mean Corpuscular Volume 97.3 fl (80-100); Mean Platelet Volume 8.7 fl (7.4-10.4); Monocytes Absolute Auto 0.2 K/mm3 (0.1-0.6); Monocytes Percent Auto 9.4 % (2.6-8.5); Neutrophils Absolute Auto 1.4 K/mm3 (1.3-6.7); Neutrophils Percent Auto 61.6 % (45.5-73.1); Platelet Count Result 253 k/mm3 (150-375); Red Blood Count 2.98 M/mm3 (4.2-5.4); Red Cell Distribution Width 11.7 % (11.5-14.5); White Blood Count 2.3 K/mm3 (4.5-10.0)
[2020-06-20] MEDS: BELLADONNA ALK/PHENOB ELIX 10 ML, MAG HYDROX/ALUMINUM HYD/SIMETH 30 ML, LIDOCAINE HCL 2... PO (22:47)
[2020-06-20 22:49] VITALS: BP 157/108; PULSE 73; RESP 16; O2SAT 97
[2020-06-20 22:56] LABS: Prothrombin Time 13.3 Seconds (11.1-14.7)
[2020-06-20 22:57] LABS: Alanine Aminotransferase 20 U/L (4-35); Albumin Level 3.8 g/dL (3.5-5.1); Alkaline Phosphatase 55 U/L (38-126); Anion Gap 10 mmol/L (8-16); Aspartate Amino Transferase 36 U/L (14-36); Bilirubin,Total 0.3 mg/dL (0.2-1.3); Blood Urea Nitrogen 11 mg/dL (7-17); Calcium 8.4 mg/dL (8.4-10.2); Carbon Dioxide 24 mmol/L (22-30); Chloride 91 mmol/L (98-107); Estimated CRCL calculation 20 ml/min; Estimated Glomerular Filt Rate 33; Glucose 91 mg/dL (65-105); Lipase 195 U/L (23-300); Partial Thromboplastin Time 26.9 SECONDS (22.3-36.8); Potassium 3.2 mmol/L (3.4-5.0); Sodium 125 mmol/L (137-145)
[2020-06-20 23:08] LABS: Troponin I < 0.012 ng/mL (0.000-0.034)
[2020-06-20 23:50] VITALS: BP 150/93; PULSE 63; RESP 16; O2SAT 97
[2020-06-21 00:08] LABS: Add Urine Microscopic? YES; Appearance Urine Clear (Clear); Bilirubin Urine Negative (Negative); Blood Urine Negative (Negative); Color Urine Yellow (Yellow); Glucose Urine UA Negative (Negative); Ketones Urine Negative (Negative); Leukocyte Esterase Ur 1+ LEU/UL (Negative); Mucus Urine Rare /lpf; Nitrate Urine Negative (Negative); Protein Urine Negative (Negative); RBC Urine 0-2 /hpf (0-2); Specific Grav Ur 1.009 (1.001-1.035); Squamous Epithelial Cell Urine Occasional /hpf (Few); Urobilinogen Urine Negative mg/dL (<2.0); WBC Urine 0-3 /hpf
[2020-06-21] MEDS: ACETAMINOPHEN 500 MG TABLET 1000 MG PO (01:28)
[2020-06-21 01:47] VITALS: BP 148/82; PULSE 68; RESP 16; O2SAT 97
== END 2020-06-21 02:54 | disposition home or self-care (01) ==
PROVIDERS: Emergency Provider Emergency Medicine; PCP Family Medicine
DX: G89.29 Other chronic pain (principal); R10.9 Unspecified abdominal pain; M54.5 Low back pain; I13.0 Hypertensive heart and chronic kidney disease with heart failure and stage 1 through stage 4 chronic kidney disease, or unspecified chronic kidney disease; N18.3 Chronic kidney disease, stage 3 (moderate); I50.30 Unspecified diastolic (congestive) heart failure; D64.9 Anemia, unspecified; I25.10 Atherosclerotic heart disease of native coronary artery without angina pectoris; Z79.01 Long term (current) use of anticoagulants; F41.9 Anxiety disorder, unspecified; F32.9 Major depressive disorder, single episode, unspecified; E78.5 Hyperlipidemia, unspecified; K21.9 Gastro-esophageal reflux disease without esophagitis; E03.9 Hypothyroidism, unspecified; I34.1 Nonrheumatic mitral (valve) prolapse; G47.33 Obstructive sleep apnea (adult) (pediatric); I48.0 Paroxysmal atrial fibrillation; G62.9 Polyneuropathy, unspecified; G25.81 Restless legs syndrome
CPT/HCPCS: 36415; 72131; 72220; 80053; 81001; 83690; 84484; 85025; 85610; 85730; 93005; 99284; A9270

== ENCOUNTER 2020-06-28 17:01 | Emergency (ER) | payer MEDICARE, SELFPAY ==
--- NOTE | ~2020-06-28 | CT_ITS ---
EXAMINATION: CTA chest PE protocol DATE: 06/29/2020 01:59 INDICATION: Shortness of breath. Chest pain. TECHNIQUE: Computed tomography angiography (CTA) of the chest was performed with 100 mL Omnipaque-350 intravenous contrast timed to evaluate the pulmonary arteries. Coronal maximum intensity projection 3D-reconstructions were created by the technologist. Automated exposure control and iterative reconst ruction technique were employed. The dose-length product was 161.64 mGy-cm. COMPARISON: Chest CT 05/19/2020, upper gastrointestinal series percent 06/08/2020 FINDINGS: There is mild scarring at the lung apices. Calcified pulmonary nodules and calcified hilar and mediastinal lymph nodes are consistent with old granulomatous disease. No pleural effusion. Cardi omegaly is noted. There is a small pericardial effusion. There are coronary artery calcifications. Th ere is no pulmonary embolus. The esophagus is patulous and fluid-filled. There are changes of cholecy stectomy. There is severe cervical and thoracic spondylosis. IMPRESSION: 1. No pulmonary embolus. 2. Small pericardial effusion. 3. Patulous and fluid-filled esophagus. The upper gastrointestinal series on 06/08/2020 did not demonst rate a stricture. Reviewed, dictated and finalized at location [facility]. IMPRESSION: 1. No pulmonary embolus. 2. Small pericardial effusion. 3. Patulous and fluid-filled esophagus. The upper gastrointestinal series on 06/08/2020 did not demonstrate a stricture.
--- NOTE | ~2020-06-28 | XR_ITS ---
EXAMINATION: XR chest 2V DATE: 06/28/2020 18:45 INDICATION: Chest pain radiating to the abdomen, shortness of breath TECHNIQUE: AP and lateral views of the chest are obtained. COMPARISON: 06/16/2020 FINDINGS: The lungs are hyperinflated but free of acute opacities. There is no pleural effusion or pn eumothorax. The cardiomediastinal silhouette is normal. There is severe thoracic spondylosis. Coronar y artery stents are noted. IMPRESSION: 1. Hyperinflation without acute cardiopulmonary abnormality. Reviewed, dictated and finalized at location [facility].
[2020-06-28 17:37] VITALS: BP 115/67; PULSE 82; RESP 17; TEMP 36.4; O2SAT 99
--- NOTE | 2020-06-28 17:39 | ECG_ITS ---
Measurements Intervals [place] Rate: 68 P: 80 WI: 146 QRS: -38 QRSD: 96 T: 49 QT: 414 QTc: 443 Interpretive Statements SINUS RHYTHM ATRIAL PREMATURE COMPLEXES LEFT AXIS DEVIATION ANTEROSEPTAL INFARCT, AGE INDETERMINATE BASELINE ARTIFACT- I, II, AVR, AVL ABNORMAL ECG Electronically Signed On 06-28-2020 18:41:24 CDT by Marlon Joe D.O.
[2020-06-28 17:48] LABS: Basophils Percent Auto 0.3 % (0.2-1.2); Hematocrit 28.7 % (37.0-47.0); Hemoglobin 9.4 g/dL (12.0-15.0); Immature Granulocyte Absolute 0.01 K/mm3 (0.00-0.031); Immature Granulocyte Percent A 0.3 % (0-0.5); Lymphocytes Absolute Auto 0.67 K/mm3 (0.9-3.2); Lymphocytes Percent Auto 20.7 % (18.3-44.2); Mean Corpuscular HGB Conc 32.8 g/dl (32-36); Mean Corpuscular Hemoglobin 31.9 pg (26-34); Mean Corpuscular Volume 97.3 fl (80-100); Monocytes Absolute Auto 0.4 K/mm3 (0.1-0.6); Monocytes Percent Auto 13.6 % (2.6-8.5); Neutrophils Absolute Auto 2.1 K/mm3 (1.3-6.7); Neutrophils Percent Auto 65.1 % (45.5-73.1); Platelet Count Result 283 k/mm3 (150-375); Red Blood Count 2.95 M/mm3 (4.2-5.4); Red Cell Distribution Width 11.6 % (11.5-14.5); White Blood Count 3.2 K/mm3 (4.5-10.0)
[2020-06-28 17:57] LABS: INR 0.9; Partial Thromboplastin Time 24.9 SECONDS (22.3-36.8); Prothrombin Time 12.1 Seconds (11.1-14.7)
[2020-06-28 17:59] LABS: Anion Gap 6 mmol/L (8-16); Blood Urea Nitrogen 16 mg/dL (7-17); Calcium 8.5 mg/dL (8.4-10.2); Carbon Dioxide 33 mmol/L (22-30); Chloride 85 mmol/L (98-107); Estimated CRCL calculation 22 ml/min; Estimated Glomerular Filt Rate 39; Glucose 108 mg/dL (65-105); Potassium 3.1 mmol/L (3.4-5.0); Sodium 124 mmol/L (137-145)
[2020-06-28 18:11] LABS: Troponin I < 0.012 ng/mL (0.000-0.034)
[2020-06-28 22:53] VITALS: BP 149/90; PULSE 70; RESP 19; O2SAT 98
[2020-06-28 23:33] LABS: Troponin I < 0.012 ng/mL (0.000-0.034)
--- NOTE | 2020-06-28 23:55 | ED.CHESTPAIN ---
HPI - Chest Pain General Chief Complaint: Chest Pain Stated Complaint: pain in chest after eating Time Seen by Provider: 06/28/20 23:54 History of Present Illness HPI narrative: Pt c/o chest pain, midsternal, tightness, non radiating, accompanied by sob, started after eating dinner. Pt has had multiple ER visits for chest pain and abd pain. MD complaint: chest discomfort Related Data Home Medications Medication Instructions Recorded Confirmed B Complex Plus Vitamin C 150 mg PO DAILY 09/01/19 06/16/20 Entresto 1 tablet PO Q12H 09/01/19 06/16/20 albuterol sulfate 2 puff INHALATION Q4-6H PRN 09/01/19 06/16/20 alprazolam 0.5 mg PO TID PRN 09/01/19 06/16/20 ascorbic acid (vitamin C) [Vitamin 500 mg PO DAILY 09/01/19 06/16/20 C With Debora Hips] cholecalciferol (vitamin D3) 5,000 unit PO DAILY 09/01/19 06/16/20 clopidogrel 75 mg PO DAILY 09/01/19 06/16/20 hydralazine 10 mg PO TID 09/01/19 06/16/20 levothyroxine 125 mcg PO DAILY 09/01/19 06/16/20 metoprolol succinate 50 mg PO DAILY 09/01/19 06/16/20 nitroglycerin 0.4 mg SUBLINGUAL Q5M PRN 09/01/19 06/16/20 trazodone 100 mg PO HS 09/01/19 06/16/20 ferrous sulfate 325 mg PO DAILY 09/06/19 06/16/20 prednisolone acetate 1 % RIGHTEYE DAILY 09/06/19 06/16/20 acetaminophen 500 mg PO Q4-6H PRN 12/01/19 06/16/20 oxybutynin chloride 10 mg PO DAILY 03/20/20 06/16/20 acyclovir 1,000 mg PO DAILY 05/31/20 06/16/20 sertraline 25 mg PO DAILY 06/16/20 06/16/20 Allergies Allergy/AdvReac Type Severity Reaction Status Date / Time Penicillins Allergy Unknown Rash Verified 06/16/20 16:39 Review of Systems Review of Systems: All systems reviewed & are unremarkable except as noted in HPI and below Constitutional: Constitutional: Denies body ache(s), Denies chills, Denies excessive sweating, Denies fatigue, Denies fever(s), Denies headache(s), Denies lethargy, Denies malaise, Denies weakness and Denies weight loss Eyes: Eyes: Denies blurry vision, Denies change in vision and Denies loss of vision ENT: Denies dizziness, Denies ear discharge, Denies headache(s), Denies lip swelling, Denies epistaxis, Denies nasal congestion, Denies neck pain, Denies throat swelling and Denies tongue swelling Cardiovascular: Cardiovascular: Denies chest pain at rest, Denies chest pain with activity, Denies diaphoresis, Denies rapid heart rate, Denies edema, Denies irregular heart rhythm, Denies lightheadedness, Denies palpitations, Denies dyspnea and Denies dyspnea on exertion Respiratory: Respiratory: Denies chest congestion, Denies cough and Denies hemoptysis Gastrointestinal: Gastrointestinal: Denies abdominal pain, Denies melena, Denies hematochezia, Denies diarrhea, Denies nausea, Denies vomiting and Denies hematemesis Musculoskeletal: Musculoskeletal: Denies abnormal gait, Denies deformity, Denies joint swelling, Denies limited range of motion, Denies neck pain and Denies numbness Neurologic: Denies Abnormal speech present, Denies abnormal gait, Denies confusion, Denies dizziness, Denies headache(s), Denies focal weakness, Denies loss of vision, Denies numbness, Denies Other visual disturbances, Denies Sensory deficit (Neuro) and Denies weakness Psychiatric: Psychiatric: Denies confusion, Denies depression, Denies auditory hallucinations, Denies homicidal ideation and Denies suicidal ideation Endocrine: Endocrine: Denies cold intolerance, Denies excessive sweating, Denies fatigue, Denies heat intolerance and Denies palpitations Hematologic/Lymphatic: Hematologic/Lymphatic: Denies easy bleeding and Denies easy bruising Allergic/Immunologic: Allergic/Immunologic: Denies lip swelling, Denies throat swelling and Denies tongue swelling PMFSH Surgical History Surgical History Status post appendectomy Status post bilateral hip replacements Status post bilateral knee replacements Status post breast biopsy Bilateral with benign histology. Status post carpal tunnel re
[2020-06-29 00:28] VITALS: BP 156/86; PULSE 70; PULSE 75; RESP 18; O2SAT 95
[2020-06-29] MEDS: ASPIRIN 81 MG CHEWABLE TABLET 324 MG PO (00:28)
[2020-06-29] MEDS: FAMOTIDINE 20 MG TABLET PO (00:28)
[2020-06-29 00:52] LABS: D Dimer 1.34 ug/mL (<0.48)
--- NOTE | 2020-06-29 01:37 | PC.NURSE ---
pt up to restroom independently without difficulty
[2020-06-29 02:49] VITALS: BP 161/82; PULSE 82; RESP 16; O2SAT 99
[2020-06-29] MEDS: POTASSIUM CHLORIDE 20 MEQ PACKET (FOR LIQUID) 40 MEQ PO (03:12)
== END 2020-06-29 03:35 | disposition home or self-care (01) ==
PROVIDERS: Emergency Medicine; Emergency Provider Emergency Medicine; PCP Family Medicine
DX: R07.89 Other chest pain (principal); Z96.643 Presence of artificial hip joint, bilateral; Z96.653 Presence of artificial knee joint, bilateral; Z98.42 Cataract extraction status, left eye; Z98.41 Cataract extraction status, right eye; I49.1 Atrial premature depolarization; R94.31 Abnormal electrocardiogram [ECG] [EKG]
CPT/HCPCS: 36415; 71046; 71275; 80048; 84484; 85025; 85380; 85610; 85730; 93005; 99284; A9270; Q9967

== ENCOUNTER 2020-07-01 19:51 | Observation (INO) | payer MEDICARE, SELFPAY ==
--- NOTE | ~2020-07-01 | XR_ITS ---
EXAMINATION: XR chest 1V portable INDICATION: Midsternal chest pain TECHNIQUE: Portable AP chest at 2038 hours COMPARISON: 06/28/2020 FINDINGS: The lungs are hyperinflated but free of acute opacities. Cardiomegaly is noted. There are c oronary artery stents. No pleural effusion or pneumothorax is identified. A calcified loose body is n oted in the right shoulder. IMPRESSION: 1. Hyperinflation without acute cardiopulmonary abnormality. 2. Cardiomegaly. Reviewed, dictated and finalized at location A.
[2020-07-01 19:59] VITALS: BP 138/75; PULSE 70; RESP 17; TEMP 36.8; O2SAT 95
[2020-07-01 20:01] VITALS: PULSE 65
--- NOTE | 2020-07-01 20:01 | ECG_ITS ---
Measurements Intervals [place] Rate: 73 P: 84 ID: [id number] QRS: -12 QRSD: 98 T: 65 QT: 400 QTc: 444 Interpretive Statements SINUS RHYTHM ATRIAL PREMATURE COMPLEXES ANTEROSEPTAL INFARCT, AGE INDETERMINATE BORDERLINE ST ABNORMALITY- LATERAL LEADS BASELINE ARTIFACT- I, II, III, AVR, AVL, AVF ABNORMAL ECG Electronically Signed On 07-02-2020 6:47:11 CDT by Marlon Joe D.O.
--- NOTE | 2020-07-01 20:11 | ED.CHESTPAIN ---
HPI - Chest Pain General Chief Complaint: Chest Pain Stated Complaint: chest pain Time Seen by Provider: 07/01/20 19:57 Source: patient and EMS History of Present Illness HPI narrative: Pt c/o chest pain, burning, radiating to her neck and stomach, moderate, started today. Pt was seen here 3 days ago for the same complaints. Multiple ER visits for chest pain and abd pain. MD complaint: chest pain Related Data Home Medications Medication Instructions Recorded Confirmed B Complex Plus Vitamin C 150 mg PO DAILY 09/01/19 06/16/20 Entresto 1 tablet PO Q12H 09/01/19 06/16/20 albuterol sulfate 2 puff INHALATION Q4-6H PRN 09/01/19 06/16/20 alprazolam 0.5 mg PO TID PRN 09/01/19 06/16/20 ascorbic acid (vitamin C) [Vitamin 500 mg PO DAILY 09/01/19 06/16/20 C With Debora Hips] cholecalciferol (vitamin D3) 5,000 unit PO DAILY 09/01/19 06/16/20 clopidogrel 75 mg PO DAILY 09/01/19 06/16/20 hydralazine 10 mg PO TID 09/01/19 06/16/20 levothyroxine 125 mcg PO DAILY 09/01/19 06/16/20 metoprolol succinate 50 mg PO DAILY 09/01/19 06/16/20 nitroglycerin 0.4 mg SUBLINGUAL Q5M PRN 09/01/19 06/16/20 trazodone 100 mg PO HS 09/01/19 06/16/20 ferrous sulfate 325 mg PO DAILY 09/06/19 06/16/20 prednisolone acetate 1 % RIGHTEYE DAILY 09/06/19 06/16/20 acetaminophen 500 mg PO Q4-6H PRN 12/01/19 06/16/20 oxybutynin chloride 10 mg PO DAILY 03/20/20 06/16/20 acyclovir 1,000 mg PO DAILY 05/31/20 06/16/20 sertraline 25 mg PO DAILY 06/16/20 06/16/20 Allergies Allergy/AdvReac Type Severity Reaction Status Date / Time Penicillins Allergy Unknown Rash Verified 07/01/20 20:01 Review of Systems Review of Systems: All systems reviewed & are unremarkable except as noted in HPI and below Constitutional: Constitutional: Denies body ache(s), Denies chills, Denies excessive sweating, Denies fatigue, Denies fever(s), Denies headache(s), Denies lethargy, Denies malaise, Denies weakness and Denies weight loss Eyes: Eyes: Denies blurry vision, Denies change in vision and Denies loss of vision ENT: Denies dizziness, Denies ear discharge, Denies headache(s), Denies lip swelling, Denies epistaxis, Denies nasal congestion, Denies neck pain, Denies throat swelling and Denies tongue swelling Cardiovascular: Cardiovascular: Denies diaphoresis, Denies rapid heart rate, Denies edema, Denies irregular heart rhythm, Denies lightheadedness, Denies palpitations, Denies dyspnea and Denies dyspnea on exertion Respiratory: Respiratory: Denies chest congestion, Denies cough, Denies hemoptysis, Denies dyspnea and Denies dyspnea on exertion Gastrointestinal: Gastrointestinal: Denies abdominal pain, Denies melena, Denies hematochezia, Denies diarrhea, Denies nausea, Denies vomiting and Denies hematemesis Musculoskeletal: Musculoskeletal: Denies abnormal gait, Denies deformity, Denies joint swelling, Denies limited range of motion, Denies neck pain and Denies numbness Neurologic: Denies Abnormal speech present, Denies abnormal gait, Denies confusion, Denies dizziness, Denies headache(s), Denies focal weakness, Denies loss of vision, Denies numbness, Denies Other visual disturbances, Denies Sensory deficit (Neuro) and Denies weakness Psychiatric: Psychiatric: Denies confusion, Denies depression, Denies auditory hallucinations, Denies homicidal ideation and Denies suicidal ideation Endocrine: Endocrine: Denies cold intolerance, Denies excessive sweating, Denies fatigue, Denies heat intolerance and Denies palpitations Hematologic/Lymphatic: Hematologic/Lymphatic: Denies easy bleeding and Denies easy bruising Allergic/Immunologic: Allergic/Immunologic: Denies lip swelling, Denies throat swelling and Denies tongue swelling PMFSH Surgical History Surgical History Status post appendectomy Status post bilateral hip replacements Status post bilateral knee replacements Status post breast biopsy Bilateral with benign histology. Status post carpal
[2020-07-01 20:54] LABS: Basophils Percent Auto 0.3 % (0.2-1.2); Hematocrit 27.2 % (37.0-47.0); Hemoglobin 8.9 g/dL (12.0-15.0); Immature Granulocyte Absolute 0.01 K/mm3 (0.00-0.031); Immature Granulocyte Percent A 0.3 % (0-0.5); Lymphocytes Absolute Auto 0.68 K/mm3 (0.9-3.2); Lymphocytes Percent Auto 19.8 % (18.3-44.2); Mean Corpuscular HGB Conc 32.7 g/dl (32-36); Mean Corpuscular Hemoglobin 31.7 pg (26-34); Mean Corpuscular Volume 96.8 fl (80-100); Monocytes Absolute Auto 0.5 K/mm3 (0.1-0.6); Monocytes Percent Auto 13.4 % (2.6-8.5); Neutrophils Absolute Auto 2.3 K/mm3 (1.3-6.7); Neutrophils Percent Auto 66.2 % (45.5-73.1); Platelet Count Result 286 k/mm3 (150-375); Red Blood Count 2.81 M/mm3 (4.2-5.4); Red Cell Distribution Width 11.5 % (11.5-14.5); White Blood Count 3.4 K/mm3 (4.5-10.0)
[2020-07-01 21:00] VITALS: BP 155/79; PULSE 70; RESP 19; O2SAT 97
[2020-07-01 21:06] LABS: Anion Gap 8 mmol/L (8-16); Blood Urea Nitrogen 20 mg/dL (7-17); Calcium 8.5 mg/dL (8.4-10.2); Carbon Dioxide 27 mmol/L (22-30); Chloride 87 mmol/L (98-107); Estimated Glomerular Filt Rate 36; Glucose 94 mg/dL (65-105); Potassium 3.8 mmol/L (3.4-5.0); Sodium 122 mmol/L (137-145)
[2020-07-01 21:18] LABS: Troponin I < 0.012 ng/mL (0.000-0.034)
[2020-07-01 21:29] LABS: Partial Thromboplastin Time 24.7 SECONDS (22.3-36.8); Prothrombin Time 12.5 Seconds (11.1-14.7)
[2020-07-01] MEDS: ACETAMINOPHEN 325 MG TABLET 650 MG PO (21:54)
[2020-07-01 22:00] VITALS: BP 157/68; PULSE 68; RESP 21; O2SAT 97
[2020-07-01 22:30] VITALS: BP 156/79; PULSE 72; RESP 24; O2SAT 97
--- NOTE | 2020-07-01 23:03 | PM.IMHP ---
H&P: HPI History of Present Illness Date/Time: 07/01/20 23:03 Chief complaint: Chest Pain, Hyponatremia Narrative: This is an 80-year-old female with known history of congestive heart failure, chronic kidney disease, chronic anemia, hypertension, coronary artery disease, paroxysmal atrial fibrillation, as well as several other comorbidities who again returned to the hospital with a complaint of poorly localized epigastric and midsternal chest discomfort that has been ongoing since this morning. The patient has a history of multiple hospitalizations as well as multiple ER visits for the same complaint. she describes waking up this morning and eating a small amount of breakfast and shortly afterwards began to have severe epigastric and midsternal chest pain. She describes her pain as stabbing and severe and radiating up towards her neck. associated symptoms include nausea but no vomiting. She denies any fevers, chills, coughing, shortness of breath, diarrhea, dysuria, hematuria, rectal bleeding, lower extremity swelling, or focal neurological deficits. The patient was recently admitted about 1 month ago to our hospitalist service with similar complaints and did undergo a Lexiscan stress test which was negative for any ischemic changes. She denies any recent changes to her home medications. the patient was again evaluated emergency room this evening and EKG was obtained which demonstrated a sinus arrhythmia but no significant ST segment changes. Q-waves were noted in the anterior leads. Initial troponin was negative. The patient is known to have chronic hyponatremia and her serum sodium is again 122. We been asked to admit the patient to the hospital for cardiac rule out. Review of Systems Review of Systems: All systems reviewed & are unremarkable except as noted in HPI and below PMFSH Past Medical History Medical History Chronic anemia Chronic kidney disease, stage 3 Congestive heart failure Systolic and diastolic congestive heart failure Echo 11/27 showed EF 50%. Echo 01/14/2019: EF measured at 39%. September 2018 EF was 25%. Echo 12/02/2019 EF 50-55%. Grade 1 diastolic function. Coronary artery disease With multivessel surgical revascularization with PCI at [place] October 2017. Cardiac catheterization 10/17/2018-mild preserved intra-stent luminal diameter Current use of intermediate card tender anticoagulation Depression with anxiety Detached retina Right-sided, x2. Frequent headaches GERD (gastroesophageal reflux disease) With history of esophageal stricture requiring dilatation. History of GI bleed History of rectal polyps Hyperlipidemia Hypertension Hypothyroidism TSH in November 2019 was a bit low, with normal T4. Irritable bowel syndrome Ischemic cardiomyopathy Mitral valve prolapse Myasthenia gravis Questionable history of. Obstructive sleep apnea Ocular herpes zoster History of shingles to the left eye, on chronic antiviral therapy. Paroxysmal atrial fibrillation No longer on long-term anticoagulation due to history of falls. Peripheral neuropathy Rectal polyp Restless leg syndrome Shingles Solitary rectal ulcer syndrome Stage III chronic kidney disease Surgical History Surgical History Status post appendectomy Status post bilateral hip replacements Status post bilateral knee replacements Status post breast biopsy Bilateral with benign histology. Status post carpal tunnel release Status post cataract extraction Bilateral. Status post cholecystectomy Status post laminectomy Lumbar spine. Status post LASIK surgery Status post rotator cuff repair Status post tonsillectomy Family History Family History Mother Cerebrovascular accident Diabetes mellitus Hypertension Sibling Cerebrovascular accident Other Acute myocardial infarction
[2020-07-01 23:51] LABS: Troponin I < 0.012 ng/mL (0.000-0.034)
[2020-07-01 23:56] VITALS: BP 141/77; PULSE 97; RESP 17; O2SAT 99
[2020-07-02] VITALS (13 sets, daily range): BP systolic 90–170; BP diastolic 53–78; PULSE 55–83; RESP 16–20; TEMP 35.7–36.8; O2SAT 93–99; BMI 15.7
--- NOTE | 2020-07-02 00:29 | ADMGEN ---
This patient, Dhara Harry, was admitted to IMU Room 214-01 at 0023. Patient/family oriented to hospital policies and general routines including ID bracelet, bed and alarms, visiting hours, pain management, procedures, bathroom and other care routines, personal items, smoking policy, room service/diet, and visiting hours. Valuables list has been completed. Information on how to activate the Rapid Response Team has been discussed. Patient/Family are encouraged to report perceived risks to care and to ask questions if they do not understand what they are told or what they should do.
[2020-07-02] MEDS: SODIUM CHLORIDE 0.9% IV 1,000 ML 75 ML IV CONT ×2 (01:16→13:37)
[2020-07-02] MEDS: MORPHINE SULFATE (*CRX) 2 MG/ML INJ IV PUSH (01:17)
--- NOTE | 2020-07-02 02:43 | PC.NURSE ---
07/02/20:patient was told that she could not have anything to eat or drink for possible test tomorrow. patient is very upset. she went from not being thirsty to just being thirsty, to her mouth being dry, to her throat getting sore, to her throat getting raw and sore and her not being able to survive without water all night. dr east called waiting for a call back.
[2020-07-02] MEDS: ACETAMINOPHEN 325 MG TABLET 650 MG PO ×3 (03:13→16:27)
[2020-07-02 03:16] LABS: Basophils Percent Auto 0.3 % (0.2-1.2); Eosinophils Percent Auto 0.3 % (0-4.4); Hematocrit 28.8 % (37.0-47.0); Hemoglobin 9.6 g/dL (12.0-15.0); Immature Granulocyte Absolute 0.01 K/mm3 (0.00-0.031); Immature Granulocyte Percent A 0.3 % (0-0.5); Lymphocytes Absolute Auto 0.73 K/mm3 (0.9-3.2); Lymphocytes Percent Auto 21.7 % (18.3-44.2); Mean Corpuscular HGB Conc 33.3 g/dl (32-36); Mean Corpuscular Hemoglobin 31.8 pg (26-34); Mean Corpuscular Volume 95.4 fl (80-100); Monocytes Absolute Auto 0.5 K/mm3 (0.1-0.6); Monocytes Percent Auto 14.5 % (2.6-8.5); Neutrophils Absolute Auto 2.1 K/mm3 (1.3-6.7); Neutrophils Percent Auto 62.9 % (45.5-73.1); Platelet Count Result 279 k/mm3 (150-375); Red Blood Count 3.02 M/mm3 (4.2-5.4); Red Cell Distribution Width 11.3 % (11.5-14.5); White Blood Count 3.4 K/mm3 (4.5-10.0)
[2020-07-02 03:29] LABS: Anion Gap 6 mmol/L (8-16); Blood Urea Nitrogen 17 mg/dL (7-17); Calcium 8.5 mg/dL (8.4-10.2); Carbon Dioxide 31 mmol/L (22-30); Chloride 87 mmol/L (98-107); Estimated CRCL calculation 21 ml/min; Estimated Glomerular Filt Rate 39; Glucose 95 mg/dL (65-105); Potassium 3.5 mmol/L (3.4-5.0); Sodium 124 mmol/L (137-145)
[2020-07-02 03:44] LABS: Troponin I < 0.012 ng/mL (0.000-0.034)
[2020-07-02] MEDS: ONDANSETRON HCL ODT 4 MG TABLET PO ×2 (09:22→16:27)
--- NOTE | 2020-07-02 09:37 | PM.CNCAR ---
Assessment and Plan Additional Plan 79-year-old white female who has the above described history of atrial arrhythmias and coronary disease who has been admitted to the hospital a multitude of times over the last 2-3 years with symptoms like this and once again there is no objective evidence of myocardial ischemia or myocardial infarction. She has had quite a few evaluations including a nuclear stress test just a couple of weeks ago. As I mentioned in my last couple of consultations unless there is objective evidence of ischemia or injury it is not my impression this lady needs further hospital or outpatient ischemia workup. Her regimen at home for this includes aspirin, clopidogrel, Entresto and furosemide. I would continue these medications and defer her disposition to the primary team. If you have questions regarding this opinion please let me know. Nathaniel Aj MD [facility] History of Present Illness History of Present Illness Consult date/time: Date of service: 07/02/20 09:37 Consult reason: chest pain Reason For Visit: Chest Pain, Hyponatremia Narrative: This is an 80-year-old woman who is known to have coronary artery disease and atrial arrhythmias and is followed by me in the office for a number of years. She is well known to many of the physicians here at [facility] as she is frequently admitted here with symptoms of chest and abdominal pain. She was in her usual state of health when yesterday she began to reduce. The symptoms as she describes as a pain in the center of her chest a dull aching sensation that tends to radiate into the mid epigastrium and also down into the mid abdomen. The symptoms have been present off and on for something like 2 or 3 years and to the best of my knowledge have eluded a specific diagnosis. Because she has a history of coronary artery disease during all of these admissions or at least most of them we are consulted to see her for assessing her cardiac status. She states she still has mild discomfort this morning but appears to not be in any significant distress upon entering the room to see her. Her electrocardiograms demonstrate sinus rhythm with APCs, previous anterior infarction but no acute ST segment abnormalities electrocardiograms are unchanged over the course of the last year or so there are many of these in her record. Her troponin levels are negative times a multitude of samples. The patient is known to have a history of paroxysmal atrial fibrillation and was previously taking diltiazem and Xarelto for this. She has had been largely maintaining sinus rhythm. She was found to have ischemic heart disease in November of 2016 she had a number of admissions with atypical sounding chest pain but was found to have severe coronary disease and was referred to [facility] for the possibility of surgical revascularization. This is a very frail cachectic lady and so they indicated she was too frail to undergo surgery and therefore she underwent aggressive interventional revascularization involving 3 stents in the separate ostia that if she has of her LAD and circumflex and had done well. Despite effective revascularization she continues to have the symptoms as I mentioned in the paragraph above. She has had follow-up trip back to the cardiac catheterization lab to investigate this most recently in February of 2019 which demonstrated no angiographic coronary lesions. She did have a significantly depressed ejection fraction in the past with medical therapy this has improved after that she remains on a appropriate medical regimen. The patient's most recent admission here for the symptoms just a couple of weeks ago at that time she had a Lexiscan nuclear stress test that was ordered by my partner, Dr. Amador which was a negative exam. When the patient is not having the symptom she states she thinks she is doing fairly well she does is able to carry on her activities of daily living without causing
--- NOTE | 2020-07-02 13:44 | PC.NURSE ---
Vital Signs - last results Temp Pulse Resp BP Pulse Ox 96.3 F L 82 20 170/70 H 99 07/02/20 12:22 07/02/20 12:22 07/02/20 12:22 07/02/20 12:22 07/02/20 12:22 Allergies Penicillins Allergy (Unknown, Verified 07/01/20 20:01) Rash Home Medications Medication Instructions Recorded Confirmed Type Entresto 1 tablet PO Q12H 09/01/19 07/02/20 History alprazolam 0.5 mg PO TID PRN 09/01/19 07/02/20 History clopidogrel 75 mg PO DAILY 09/01/19 07/02/20 History hydralazine 10 mg PO TID 09/01/19 07/02/20 History levothyroxine 125 mcg PO DAILY 09/01/19 07/02/20 History metoprolol succinate 50 mg PO DAILY 09/01/19 07/02/20 History nitroglycerin 0.4 mg SUBLINGUAL Q5M PRN 09/01/19 07/02/20 History trazodone 100 mg PO HS 09/01/19 07/02/20 History ferrous sulfate 325 mg PO DAILY 09/06/19 07/02/20 History prednisolone acetate 1 % RIGHTEYE DAILY 09/06/19 07/02/20 History oxybutynin chloride 10 mg PO DAILY 03/20/20 07/02/20 History acyclovir 1,000 mg PO DAILY 05/31/20 07/02/20 History sertraline 25 mg PO DAILY 06/16/20 07/02/20 History furosemide 20 mg PO DAILY 07/02/20 07/02/20 History Medications Acetaminophen (Tylenol Tablet) 650 mg PO Q4H PRN PRN Reason: Mild Pain (1-3) or Fever Last Admin: 07/02/20 08:40 Dose: 650 mg Documented by: YEMI FOSTER Pain/Fever Assessment Document 07/02/20 08:40 SAAD (Rec: 07/02/20 08:41 SAAD [id number]) Administration Reason Administration Reason Pain Pain Pain Evaluation Assessment Pain Scale Used Numeric (1 - 10) Order Parameters Order Parameters for Administering this Pain Level 7-10 (Severe) Pain Med Self Report Pain Assessment Reported Pain Level 10 Pain Location Abdomen Pain Description Sharp Pain Frequency Continuous Pain Aggravating Factors None Pain Behaviors Moaning,Nauseated Pain Score Pain Score 10: Self Report Sodium Chloride (Normal Saline Iv) 1,000 mls @ 75 mls/hr IV CONT .[id number] [facility] Last Admin: 07/02/20 13:37 Dose: 75 mls/hr Documented by: BAYRON Infusion/Titration Document 07/02/20 13:37 [facility] (Rec: 07/02/20 13:38 [facility] [id number]) Intake IV Site Left Wrist Peripheral Access Cumulative Intake (Rx) 1,000 Container Volume 1,000 Waste Amount 0 Dosing Infusion Rate 75 Cumulative Dose Not Applicable Increase/Decrease Started/Running Elapsed Time Elapsed Time (minutes) 12h 21m Ondansetron HCl (Zofran Odt) 4 mg PO Q6H PRN PRN Reason: Nausea And Vomiting Last Admin: 07/02/20 09:22 Dose: 4 mg Documented by: YEMI Discontinued Medications Acetaminophen (Tylenol Tablet) 650 mg PO ONCE STA Stop: 07/01/20 21:43 Last Admin: 07/01/20 21:54 Dose: 650 mg Documented by: KYLE FOSTER Pain Assessment Document 07/01/20 21:54 YAHIR (Rec: 07/01/20 21:54 YAHIR [id number]) Pain Evaluation Pain Evaluation Pre-Treatment Pain Scale Pain Scale Used Numeric (1 - 10) Order Parameters Order Parameters for Administering this Pain Level 7-10 (Severe) Pain Med Self Report Pain Assessment Reported Pain Level 10 Pain Score Pain Score 10: Self Report Re-Assess: CRISTIAN Pain/Fever Reassessment Document 07/01/20 2
--- NOTE | 2020-07-02 16:20 | PM.IMPN ---
Progress Note: A&P Assessment and Plan (1) Atypical chest pain: Code(s): R07.89 - Other chest pain Status: Acute Assessment and Plan: Recent stress test was negative. Seen by cardiology ok to discharge wes on medications. (2) Chronic abdominal pain: Code(s): R10.9 - Unspecified abdominal pain; G89.29 - Other chronic pain Status: Chronic Assessment and Plan: continue GI recommendations which include PPI therapy. UGI and small-bowel follow-through obtained on June 08 showing presbyesophagus with slightly delayed esophageal emptying but no mass or stricture identified. (3) Hyponatremia: Code(s): E87.1 - Hypo-osmolality and hyponatremia Status: Acute Assessment and Plan: The patient is known to have chronic hyponatremia sodium is 124. (4) Chronic kidney disease, stage 3: Code(s): N18.3 - Chronic kidney disease, stage 3 (moderate) Status: Chronic Assessment and Plan: renal function appears to be at baseline. Monitor renal function and urine output. (5) Anemia: Qualifiers: Anemia type: unspecified type Qualified Code(s): D64.9 - Anemia, unspecified Code(s): D64.9 - Anemia, unspecified Status: Chronic Assessment and Plan: No signs of acute blood loss. Likely multifactorial. Monitor H&H, transfuse p.r.n.. (6) Hypothyroidism: Qualifiers: Hypothyroidism type: unspecified Qualified Code(s): E03.9 - Hypothyroidism, unspecified Code(s): E03.9 - Hypothyroidism, unspecified Status: Chronic Assessment and Plan: Continue levothyroxine. (7) Paroxysmal atrial fibrillation: Code(s): I48.0 - Paroxysmal atrial fibrillation Status: Chronic Assessment and Plan: Patient is no longer on anticoagulant secondary to falls. Continue beta-wilmer. (8) Hypertension: Qualifiers: Hypertension type: unspecified Qualified Code(s): I10 - Essential (primary) hypertension Code(s): I10 - Essential (primary) hypertension Status: Chronic Assessment and Plan: Stable. Continue metoprolol and Entresto. (9) Congestive heart failure: Qualifiers: Heart failure type: unspecified Heart failure chronicity: chronic Qualified Code(s): I50.9 - Heart failure, unspecified Code(s): I50.9 - Heart failure, unspecified Status: Chronic Assessment and Plan: Currently compensated. (10) COVID-19: Code(s): U07.1 - COVID-19 Status: Acute Assessment and Plan: COVID POsitive no SOB no needing oxygen for discharge wes Subjective Date/time seen: 07/02/20 16:20 Interval history: 80-year-old female with known history of congestive heart failure, chronic kidney disease, chronic anemia, hypertension, coronary artery disease, paroxysmal atrial fibrillation, as well as several other comorbidities who again returned to the hospital with a complaint of poorly localized epigastric and midsternal chest discomfort that has been ongoing since this morning. Seen by cardiology, chronic chest pain. Medications have been adjusted. Sodium is slightly low at 124. Hopeful Dc wes AM. Review of Systems Review of Systems: All systems reviewed & are unremarkable except as noted in HPI and below Cardiovascular: Cardiovascular: Reports chest pain Respiratory: Respiratory: Denies cough, Denies dyspnea and Denies wheezing Gastrointestinal: Gastrointestinal: Denies abdominal pain Exam Const: General: cooperative, comfortable, alert and awake Nutritional Appearance: thin and underweight Orientation/consciousness: patient oriented x3 Resp: Effort & Inspection: normal respiratory effort Auscultation: clear to auscultation bilaterally Cardio: Rate: regular rate Rhythm: regular rhythm Heart sounds: no murmurs GI: Inspection: normal to inspection Auscultation: normal bowel sounds Rectal Exam: deferred Neur
--- NOTE | 2020-07-02 17:23 | ADMGEN ---
This patient, Dhara Harry, was admitted to Medical Room 348-01. Patient/family oriented to hospital policies and general routines including ID bracelet, bed and alarms, visiting hours, pain management, procedures, bathroom and other care routines, personal items, smoking policy, room service/diet, and visiting hours. Valuables list has been completed. Information on how to activate the Rapid Response Team has been discussed. Patient/Family are encouraged to report perceived risks to care and to ask questions if they do not understand what they are told or what they should do.
--- NOTE | 2020-07-02 17:33 | PC.NURSE ---
Patient transferred to room 332. Report given to Antionette SALVADOR. Patient belongings sent with patient.
[2020-07-02] MEDS: traZODone HCL 50 MG TABLET 100 MG PO (20:40)
[2020-07-02] MEDS: SACUBITRIL/VALSARTAN 24-26 MG TABLET 1 TAB PO (20:40)
[2020-07-02] MEDS: ALPRAZolam (*CRX) 0.5 MG TABLET PO (20:40)
[2020-07-02] MEDS: hydrALAZINE 10 MG TABLET PO (21:19)
[2020-07-03] VITALS: BP 142/60; PULSE 55; RESP 16; TEMP 36.5; O2SAT 96
[2020-07-03] MEDS: SODIUM CHLORIDE 0.9% IV 1,000 ML 75 ML IV CONT (01:37)
[2020-07-03 04:00] VITALS: BP 147/81; PULSE 57; PULSE 77; RESP 18; TEMP 36.6; O2SAT 100
[2020-07-03 06:43] LABS: Anion Gap 6 mmol/L (8-16); Blood Urea Nitrogen 11 mg/dL (7-17); Calcium 8.4 mg/dL (8.4-10.2); Carbon Dioxide 31 mmol/L (22-30); Chloride 97 mmol/L (98-107); Estimated CRCL calculation 27 ml/min; Estimated Glomerular Filt Rate 53; Glucose 80 mg/dL (65-105); Potassium 3.6 mmol/L (3.4-5.0); Sodium 134 mmol/L (137-145)
[2020-07-03] MEDS: LEVOTHYROXINE SODIUM 125 MCG TABLET PO (06:51)
[2020-07-03] MEDS: hydrALAZINE 10 MG TABLET PO (06:51)
[2020-07-03 08:00] VITALS: BP 147/73; PULSE 88; RESP 18; TEMP 36.8; O2SAT 96
--- NOTE | 2020-07-03 09:13 | PM.DS ---
DS: Admitting Diagnosis Admitting Diagnosis Admitting Diagnosis: Chest Pain, Hyponatremia DS: Discharge Diagnosis Discharge Diagnosis (1) Atypical chest pain: Code(s): R07.89 - Other chest pain Status: Acute Assessment and Plan: Recent stress test was negative. Seen by cardiology ok to discharge today medications reviewed by them, no further testing. (2) Chronic abdominal pain: Code(s): R10.9 - Unspecified abdominal pain; G89.29 - Other chronic pain Status: Chronic Assessment and Plan: Continue PPI therapy. UGI and small-bowel follow-through obtained on June 08 showing presbyesophagus with slightly delayed esophageal emptying but no mass or stricture identified. (3) Hyponatremia: Code(s): E87.1 - Hypo-osmolality and hyponatremia Status: Acute Assessment and Plan: The patient is known to have chronic hyponatremia sodium is 124. improved to 134 on discharge after fluids. Recommended to drink more water. (4) Chronic kidney disease, stage 3: Code(s): N18.3 - Chronic kidney disease, stage 3 (moderate) Status: Chronic Assessment and Plan: Renal function appears to be at baseline. (5) Anemia: Qualifiers: Anemia type: unspecified type Qualified Code(s): D64.9 - Anemia, unspecified Code(s): D64.9 - Anemia, unspecified Status: Chronic Assessment and Plan: No signs of acute blood loss. Hb is 9. (6) Hypothyroidism: Qualifiers: Hypothyroidism type: unspecified Qualified Code(s): E03.9 - Hypothyroidism, unspecified Code(s): E03.9 - Hypothyroidism, unspecified Status: Chronic Assessment and Plan: Continue levothyroxine. (7) Paroxysmal atrial fibrillation: Code(s): I48.0 - Paroxysmal atrial fibrillation Status: Chronic Assessment and Plan: Patient is no longer on anticoagulant secondary to falls. Continue beta-wilmer. (8) Hypertension: Qualifiers: Hypertension type: unspecified Qualified Code(s): I10 - Essential (primary) hypertension Code(s): I10 - Essential (primary) hypertension Status: Chronic Assessment and Plan: Stable. Continue metoprolol and Entresto. (9) Congestive heart failure: Qualifiers: Heart failure chronicity: chronic Heart failure type: unspecified Qualified Code(s): I50.9 - Heart failure, unspecified Code(s): I50.9 - Heart failure, unspecified Status: Chronic Assessment and Plan: Currently compensated. (10) COVID-19: Code(s): U07.1 - COVID-19 Status: Acute Assessment and Plan: COVID positive no SOB or no fever. Pt not needing oxygen, stable for discharge tomorrow. Long discussion about home quarantine. social distancing and wearing a mask. DS: Summary Time Spent with Patient Time attestation: Total time spent providing and/or coordinating discharge services:40 minutes on day of discharge Exam Narrative: Exam Narrative: Temp Pulse Resp BP Pulse Ox 36.8 C 88 18 147/73 H 96 07/03/20 08:00 07/03/20 08:00 07/03/20 08:00 07/03/20 08:00 07/03/20 08:00 Pt not fully examined Vitals stable, not on oxygen Stable for discharge DS: Data Data Completed and Pending Labs on day of discharge: Labs from last 24 hours 07/03/20 06:12 Sodium 134 L Potassium 3.6 Chloride 97 L Carbon Dioxide 31 H Anion Gap 6 L BUN 11 D Creatinine 1.00 Estim Creat Clear Calc 27 Estimated GFR 53 L Glucose 80 Calcium 8.4 Discharge Plan Discharge Attending physician on discharge: Melissa Mcmillan Consulting providers: Nathaniel Aj Discharging Clinician: Melissa Mcmillan Anticipated Discharge Date/Time: 07/03/20 09:11 Patient Disposition: Home Health Service
[2020-07-03] MEDS: SACUBITRIL/VALSARTAN 24-26 MG TABLET 1 TAB PO (09:14)
[2020-07-03] MEDS: SERTRALINE HCL 25 MG TABLET PO (09:14)
[2020-07-03] MEDS: METOPROLOL SUCCINATE EXT REL 50 MG TABCR PO (09:14)
[2020-07-03] MEDS: CLOPIDOGREL BISULFATE 75 MG TABLET PO (09:14)
[2020-07-03] MEDS: FUROSEMIDE 20 MG TABLET PO (09:14)
[2020-07-03] MEDS: ACYCLOVIR 200 MG CAPSULE 1000 MG PO (09:14)
[2020-07-03] MEDS: FERROUS SULFATE 324 MG TABLET PO (09:15)
[2020-07-03] MEDS: PANTOPRAZOLE 40 MG TABLET PO (09:15)
[2020-07-03] MEDS: ALPRAZolam (*CRX) 0.5 MG TABLET PO (09:15)
--- NOTE | 2020-07-03 11:22 | PC.NURSE ---
Pt is A&O x 3. Pt is had discharge orders. Pt has had IV removed, and tele taken off. Discharge paperwork has been reviewed with pt, and opportunity to ask questions was provided. Pt exhibited good understanding of discharge instructions. Pt was assisted to the front of the building, per staff and wheelchair to wait for her ride.
== END 2020-07-03 11:15 | disposition home health service (06) ==
LOC: ANHED 22:59 → ANHIMU 07-02 00:51 → ANH3MED 07-02 14:49 → ANH3MEDSUR 07-03 09:13 → ANH3MED 07-06 10:20 → ANH3MEDSUR 07-06 10:20 → ANHIMU 07-06 10:20
PROVIDERS: Admitting Provider Family Medicine; Emergency Provider Emergency Medicine; PCP Family Medicine; Visit Provider Family Medicine
DX: R07.89 Other chest pain (principal); U07.1 COVID-19; E87.1 Hypo-osmolality and hyponatremia; R10.9 Unspecified abdominal pain; I13.0 Hypertensive heart and chronic kidney disease with heart failure and stage 1 through stage 4 chronic kidney disease, or unspecified chronic kidney disease; N18.3 Chronic kidney disease, stage 3 (moderate); I50.40 Unspecified combined systolic (congestive) and diastolic (congestive) heart failure; I25.10 Atherosclerotic heart disease of native coronary artery without angina pectoris; G89.29 Other chronic pain; D63.1 Anemia in chronic kidney disease; E03.9 Hypothyroidism, unspecified; I48.0 Paroxysmal atrial fibrillation; Z96.653 Presence of artificial knee joint, bilateral; Z96.643 Presence of artificial hip joint, bilateral
CPT/HCPCS: 36415; 71045; 80048; 84484; 85025; 85610; 85730; 93005; 96361; 96374; 99285; A9270; G0378; J2270; J7030

== ENCOUNTER 2020-07-16 21:25 | Emergency (ER) | payer MEDICARE, SELFPAY ==
--- NOTE | ~2020-07-16 | XR_ITS ---
EXAMINATION: XR chest 1V portable EXAM DATE: 07/16/2020 23:50 INDICATION: Shortness of breath. TECHNIQUE: Portable AP frontal chest x-ray was obtained. Study available to dictate at 11:52 p.m. on 07/16/2020 23:52 CDT. There is a prior study from 07/01/2020 for comparison. FINDINGS: Lungs are severely chronically hyperinflated. The lungs are clear. There are no pleural ef fusions. The cardiomediastinal silhouette is within normal limits. There is no pneumothorax suspect ed. There is moderate bilateral shoulder primary osteoarthritis. Some dystrophic calcification below the right humeral neck. Chondral cartilage calcification. Mild to moderate thoracolumbar scoliosis. Ther e is aortic arteriosclerosis. There are cholecystectomy clips. There is no significant interval henry ge. IMPRESSION: 1. No acute cardiopulmonary findings. 2. Hyperinflation. I had previously discussed results of this x-ray with Dr. Zain Leiva MD before the exam was able to be dictated due to technical reasons. Reviewed, dictated and finalized at location [facility]. IMPRESSION: 1. No acute cardiopulmonary findings. 2. Hyperinflation. I had previously discussed results of this x-ray with Dr. Zain Leiva MD be fore the exam was able to be dictated due to technical reasons.
[2020-07-16 21:36] VITALS: BP 130/73; PULSE 65; RESP 14; TEMP 37.1; O2SAT 95
--- NOTE | 2020-07-16 21:53 | ECG_ITS ---
Measurements Intervals [place] Rate: 64 P: 77 VA: 137 QRS: -29 QRSD: 94 T: 34 QT: 410 QTc: 424 Interpretive Statements SINUS RHYTHM LOW VOLTAGE- LIMB LEADS ANTEROSEPTAL INFARCT, AGE INDETERMINATE BASELINE WANDER- AVL, AVF, V5-V6 ABNORMAL ECG Electronically Signed On 07-17-2020 7:32:58 CDT by Marlon Joe D.O.
[2020-07-16 22:04] LABS: Basophils Percent Auto 0.4 % (0.2-1.2); Eosinophils Absolute Auto 0.1 K/mm3 (0-0.3); Hematocrit 25.7 % (37.0-47.0); Hemoglobin 8.4 g/dL (12.0-15.0); Immature Granulocyte Absolute 0.02 K/mm3 (0.00-0.031); Immature Granulocyte Percent A 0.4 % (0-0.5); Lymphocytes Absolute Auto 1.09 K/mm3 (0.9-3.2); Lymphocytes Percent Auto 22.6 % (18.3-44.2); Mean Corpuscular HGB Conc 32.7 g/dl (32-36); Mean Corpuscular Hemoglobin 31.7 pg (26-34); Mean Platelet Volume 9.4 fl (7.4-10.4); Monocytes Absolute Auto 0.5 K/mm3 (0.1-0.6); Monocytes Percent Auto 10.6 % (2.6-8.5); Neutrophils Absolute Auto 3.1 K/mm3 (1.3-6.7); Platelet Count Result 212 k/mm3 (150-375); Red Blood Count 2.65 M/mm3 (4.2-5.4); Red Cell Distribution Width 11.9 % (11.5-14.5); White Blood Count 4.8 K/mm3 (4.5-10.0)
[2020-07-16 22:17] LABS: Anion Gap 6 mmol/L (8-16); Blood Urea Nitrogen 23 mg/dL (7-17); Calcium 8.4 mg/dL (8.4-10.2); Carbon Dioxide 30 mmol/L (22-30); Chloride 91 mmol/L (98-107); Estimated CRCL calculation 21 ml/min; Estimated Glomerular Filt Rate 36; Glucose 104 mg/dL (65-105); Potassium 4.6 mmol/L (3.4-5.0); Sodium 127 mmol/L (137-145)
[2020-07-16 22:29] LABS: Troponin I < 0.012 ng/mL (0.000-0.034)
[2020-07-16 22:41] LABS: INR 1.1; Prothrombin Time 13.4 Seconds (11.1-14.7)
[2020-07-16 22:42] LABS: Partial Thromboplastin Time 26.9 SECONDS (22.3-36.8)
--- NOTE | 2020-07-16 23:17 | ED.CHESTPAIN ---
HPI - Chest Pain General Chief Complaint: Chest Pain Stated Complaint: cp Time Seen by Provider: 07/16/20 22:10 Source: patient Mode of arrival: ambulatory Limitations: no limitations History of Present Illness HPI narrative: 80-year-old with a history of CAD, hypertension, anxiety here with complaints of having chest pain on and off for past few days. She states that the pain starts in her throat goes all the way to the bottom. She denies any fever or chills no history of cough or shortness of breath . MD complaint: chest pain Onset (ago): day(s) (3) Timing of current episode: constant Pain location: substernal and epigastric Severity: moderate Quality: heaviness Relieving factors: nothing Exacerbating factors: nothing Related Data Home Medications Medication Instructions Recorded Confirmed Entresto 1 tablet PO Q12H 09/01/19 07/02/20 alprazolam 0.5 mg PO TID PRN 09/01/19 07/02/20 clopidogrel 75 mg PO DAILY 09/01/19 07/02/20 hydralazine 10 mg PO TID 09/01/19 07/02/20 levothyroxine 125 mcg PO DAILY 09/01/19 07/02/20 metoprolol succinate 50 mg PO DAILY 09/01/19 07/02/20 nitroglycerin 0.4 mg SUBLINGUAL Q5M PRN 09/01/19 07/02/20 trazodone 100 mg PO HS 09/01/19 07/02/20 ferrous sulfate 325 mg PO DAILY 09/06/19 07/02/20 prednisolone acetate 1 % RIGHTEYE DAILY 09/06/19 07/02/20 oxybutynin chloride 10 mg PO DAILY 03/20/20 07/02/20 acyclovir 1,000 mg PO DAILY 05/31/20 07/02/20 sertraline 25 mg PO DAILY 06/16/20 07/02/20 furosemide 20 mg PO DAILY 07/02/20 07/02/20 Allergies Allergy/AdvReac Type Severity Reaction Status Date / Time Penicillins Allergy Unknown Rash Verified 07/16/20 21:45 Review of Systems Review of Systems: All systems reviewed & are unremarkable except as noted in HPI and below Constitutional: Constitutional: Reports no additional constitutional complaints Eyes: Eyes: Reports as per HPI ENT: Reports system reviewed and no additional complaints, except as documented Cardiovascular: Cardiovascular: Reports no additional cardiovascular complaints Respiratory: Respiratory: Reports no additional respiratory complaints Gastrointestinal: Gastrointestinal: Reports no additional gastrointestinal complaints [facility] Past Medical History Medical History (Updated 07/16/20 @ 23:24 by Zain Leiva MD) Chronic anemia Chronic kidney disease, stage 3 Congestive heart failure Systolic and diastolic congestive heart failure Echo 11/27 showed EF 50%. Echo 01/14/2019: EF measured at 39%. September 2018 EF was 25%. Echo 12/02/2019 EF 50-55%. Grade 1 diastolic function. Coronary artery disease With multivessel surgical revascularization with PCI at [place] October 2017. Cardiac catheterization 10/17/2018-mild preserved intra-stent luminal diameter Current use of fdc anticoagulation Depression with anxiety Detached retina Right-sided, x2. Frequent headaches GERD (gastroesophageal reflux disease) With history of esophageal stricture requiring dilatation. History of GI bleed History of rectal polyps Hyperlipidemia Hypertension Hypothyroidism TSH in November 2019 was a bit low, with normal T4. Irritable bowel syndrome Ischemic cardiomyopathy Mitral valve prolapse Myasthenia gravis Questionable history of. Obstructive sleep apnea Ocular herpes zoster History of shingles to the left eye, on chronic antiviral therapy. Paroxysmal atrial fibrillation No longer on long-term anticoagulation due to history of falls. Peripheral neuropathy Rectal polyp Restless leg syndrome Shingles Solitary rectal ulcer syndrome Stage III chronic kidney disease Surgical History Surgical History Status post appendectomy Status post bilateral hip replacements Status post bilateral knee replacements Status post breast biopsy Bilateral with benign histology. Status post carpal tunnel release Status post cataract extraction Bilateral. Status post cholecystectomy Status
[2020-07-16 23:51] VITALS: BP 129/68; PULSE 66; RESP 20; O2SAT 98
== END 2020-07-16 23:54 | disposition home or self-care (01) ==
PROVIDERS: Emergency Medicine; Emergency Provider Family Medicine; PCP Family Medicine
DX: R07.2 Precordial pain (principal); I25.10 Atherosclerotic heart disease of native coronary artery without angina pectoris; F41.9 Anxiety disorder, unspecified; I13.0 Hypertensive heart and chronic kidney disease with heart failure and stage 1 through stage 4 chronic kidney disease, or unspecified chronic kidney disease; N18.30 Chronic kidney disease, stage 3 unspecified; I50.40 Unspecified combined systolic (congestive) and diastolic (congestive) heart failure; F41.8 Other specified anxiety disorders; Z79.01 Long term (current) use of anticoagulants; K21.9 Gastro-esophageal reflux disease without esophagitis; E78.5 Hyperlipidemia, unspecified; E03.9 Hypothyroidism, unspecified; K58.9 Irritable bowel syndrome, unspecified; I25.5 Ischemic cardiomyopathy; I34.1 Nonrheumatic mitral (valve) prolapse; G47.33 Obstructive sleep apnea (adult) (pediatric); I48.0 Paroxysmal atrial fibrillation; G62.9 Polyneuropathy, unspecified; G25.81 Restless legs syndrome; Z96.643 Presence of artificial hip joint, bilateral; Z96.653 Presence of artificial knee joint, bilateral; R94.31 Abnormal electrocardiogram [ECG] [EKG]
CPT/HCPCS: 36415; 71045; 80048; 84484; 85025; 85610; 85730; 93005; 99284

== ENCOUNTER 2020-07-24 13:47 | Emergency (ER) | payer MEDICARE, SELFPAY ==
[2020-07-24 13:39] VITALS: BP 119/73; PULSE 67; RESP 17; TEMP 36.2; O2SAT 95
[2020-07-24 13:46] VITALS: PULSE 66
--- NOTE | 2020-07-24 14:04 | ECG_ITS ---
Measurements Intervals [place] Rate: 64 P: 30 MI: 124 QRS: -65 QRSD: 85 T: 38 QT: 415 QTc: 429 Interpretive Statements SINUS RHYTHM ATRIAL PREMATURE COMPLEX POSSIBLE LEFT ATRIAL ENLARGEMENT LEFT AXIS DEVIATION LOW QRS VOLTAGE IN LIMB LEADS ANTEROSEPTAL INFARCT, AGE INDETERMINATE BASELINE ARTIFACT- II, III, V3, V5-V6 ABNORMAL ECG Electronically Signed On 07-24-2020 18:11:37 CDT by Marlon Joe D.O.
[2020-07-24 14:33] LABS: Basophils Percent Auto 0.4 % (0.2-1.2); Eosinophils Percent Auto 0.6 % (0-4.4); Hematocrit 30.2 % (37.0-47.0); Immature Granulocyte Absolute 0.02 K/mm3 (0.00-0.031); Immature Granulocyte Percent A 0.4 % (0-0.5); Lymphocytes Absolute Auto 0.65 K/mm3 (0.9-3.2); Lymphocytes Percent Auto 12.1 % (18.3-44.2); Mean Corpuscular HGB Conc 33.1 g/dl (32-36); Mean Corpuscular Hemoglobin 32.8 pg (26-34); Monocytes Absolute Auto 0.4 K/mm3 (0.1-0.6); Monocytes Percent Auto 7.3 % (2.6-8.5); Neutrophils Absolute Auto 4.2 K/mm3 (1.3-6.7); Neutrophils Percent Auto 79.2 % (45.5-73.1); Platelet Count Result 265 k/mm3 (150-375); Red Blood Count 3.05 M/mm3 (4.2-5.4); Red Cell Distribution Width 12.1 % (11.5-14.5); White Blood Count 5.4 K/mm3 (4.5-10.0)
[2020-07-24 14:44] LABS: Alanine Aminotransferase 15 U/L (4-35); Albumin Level 3.9 g/dL (3.5-5.1); Alkaline Phosphatase 79 U/L (38-126); Anion Gap 6 mmol/L (8-16); Aspartate Amino Transferase 30 U/L (14-36); Bilirubin,Total 0.2 mg/dL (0.2-1.3); Blood Urea Nitrogen 26 mg/dL (7-17); Calcium 8.6 mg/dL (8.4-10.2); Carbon Dioxide 31 mmol/L (22-30); Chloride 94 mmol/L (98-107); Estimated CRCL calculation 25 ml/min; Estimated Glomerular Filt Rate 33; Glucose 107 mg/dL (65-105); Potassium 4.1 mmol/L (3.4-5.0); Sodium 131 mmol/L (137-145)
[2020-07-24 14:46] LABS: Lipase 92 U/L (23-300)
[2020-07-24] MEDS: BELLADONNA ALK/PHENOB ELIX 10 ML, MAG HYDROX/ALUMINUM HYD/SIMETH 30 ML, LIDOCAINE HCL 2... PO (14:46)
[2020-07-24 14:47] VITALS: BP 129/74; PULSE 60; RESP 14; O2SAT 97
--- NOTE | 2020-07-24 14:56 | ED.CHESTPAIN ---
HPI - Chest Pain General Chief Complaint: Chest Pain Stated Complaint: abd/cp Time Seen by Provider: 07/24/20 13:47 Source: patient Mode of arrival: EMS Limitations: no limitations History of Present Illness HPI narrative: This patient is an 80 year old female with history of chronic renal disease , CAD, cHF and chronic pain who presents for an evaluation of chest pain. Patient reports yesterday evening she developed pain from her upper chest down to her pelvis. This pain has been constant. She frequently presents to the ER with this pain, and she comes to ER at least once a week with same complaint. She was here 1 week ago and she had negative troponin. She denies associated nausea, vomiting, fever or cough. She reports chronic sob. She does not know any exacerbating factors. Related Data Home Medications Medication Instructions Recorded Confirmed Entresto 1 tablet PO Q12H 09/01/19 07/02/20 alprazolam 0.5 mg PO TID PRN 09/01/19 07/02/20 clopidogrel 75 mg PO DAILY 09/01/19 07/02/20 hydralazine 10 mg PO TID 09/01/19 07/02/20 levothyroxine 125 mcg PO DAILY 09/01/19 07/02/20 metoprolol succinate 50 mg PO DAILY 09/01/19 07/02/20 nitroglycerin 0.4 mg SUBLINGUAL Q5M PRN 09/01/19 07/02/20 trazodone 100 mg PO HS 09/01/19 07/02/20 ferrous sulfate 325 mg PO DAILY 09/06/19 07/02/20 prednisolone acetate 1 % RIGHTEYE DAILY 09/06/19 07/02/20 oxybutynin chloride 10 mg PO DAILY 03/20/20 07/02/20 acyclovir 1,000 mg PO DAILY 05/31/20 07/02/20 sertraline 25 mg PO DAILY 06/16/20 07/02/20 furosemide 20 mg PO DAILY 07/02/20 07/02/20 Allergies Allergy/AdvReac Type Severity Reaction Status Date / Time Penicillins Allergy Unknown Rash Verified 07/24/20 13:47 Review of Systems Review of Systems: All systems reviewed & are unremarkable except as noted in HPI and below Constitutional: Constitutional: Denies chills and Denies fever(s) Cardiovascular: Cardiovascular: Reports chest pain, Denies rapid heart rate, Denies radiating jaw, neck or arm pain and Denies slow heart rate Respiratory: Respiratory: Denies cough and Reports dyspnea (chronic) Gastrointestinal: Gastrointestinal: Reports abdominal pain, Denies diarrhea, Denies nausea and Denies vomiting [facility] Past Medical History Medical History (Updated 07/24/20 @ 16:20 by Sharron Gunderson MD) Chronic anemia Chronic kidney disease, stage 3 Congestive heart failure Systolic and diastolic congestive heart failure Echo 11/27 showed EF 50%. Echo 01/14/2019: EF measured at 39%. September 2018 EF was 25%. Echo 12/02/2019 EF 50-55%. Grade 1 diastolic function. Coronary artery disease With multivessel surgical revascularization with PCI at [place] October 2017. Cardiac catheterization 10/17/2018-mild preserved intra-stent luminal diameter Current use of mcfp anticoagulation Depression with anxiety Detached retina Right-sided, x2. Frequent headaches GERD (gastroesophageal reflux disease) With history of esophageal stricture requiring dilatation. History of GI bleed History of rectal polyps Hyperlipidemia Hypertension Hypothyroidism TSH in November 2019 was a bit low, with normal T4. Irritable bowel syndrome Ischemic cardiomyopathy Mitral valve prolapse Myasthenia gravis Questionable history of. Obstructive sleep apnea Ocular herpes zoster History of shingles to the left eye, on chronic antiviral therapy. Paroxysmal atrial fibrillation No longer on long-term anticoagulation due to history of falls. Peripheral neuropathy Rectal polyp Restless leg syndrome Shingles Solitary rectal ulcer syndrome Stage III chronic kidney disease Surgical History Surgical History Status post appendectomy Status post bilateral hip replacements Status post bilateral knee replacements Status post breast biopsy Bilateral with benign histology. Status post carpal tunnel release Status post cataract extraction Bilateral. Status po
[2020-07-24 14:59] LABS: Troponin I 0.029 ng/mL (0.000-0.034)
[2020-07-24] MEDS: SODIUM CHLORIDE 0.9% IV 500 ML 999 ML IV CONT (15:16)
[2020-07-24 16:20] VITALS: BP 132/84; PULSE 60; RESP 17; O2SAT 98
== END 2020-07-24 16:25 | disposition home or self-care (01) ==
PROVIDERS: Emergency Provider General Practice; PCP Family Medicine
DX: R07.89 Other chest pain (principal); D63.1 Anemia in chronic kidney disease; I25.10 Atherosclerotic heart disease of native coronary artery without angina pectoris; I13.0 Hypertensive heart and chronic kidney disease with heart failure and stage 1 through stage 4 chronic kidney disease, or unspecified chronic kidney disease; N18.30 Chronic kidney disease, stage 3 unspecified; I50.40 Unspecified combined systolic (congestive) and diastolic (congestive) heart failure; E78.5 Hyperlipidemia, unspecified; E03.9 Hypothyroidism, unspecified; K58.9 Irritable bowel syndrome, unspecified; I34.1 Nonrheumatic mitral (valve) prolapse; G47.33 Obstructive sleep apnea (adult) (pediatric); I48.0 Paroxysmal atrial fibrillation; K21.9 Gastro-esophageal reflux disease without esophagitis; Z79.01 Long term (current) use of anticoagulants; Z87.19 Personal history of other diseases of the digestive system; G25.81 Restless legs syndrome; G62.9 Polyneuropathy, unspecified
CPT/HCPCS: 36415; 80053; 83690; 84484; 85025; 93005; 99284; A9270; J7040

== ENCOUNTER 2020-07-27 16:34 | Emergency (ER) | payer MEDICARE, SELFPAY ==
[2020-07-27] VITALS (10 sets, daily range): BP systolic 124–147; BP diastolic 74–88; PULSE 64–98; RESP 13–25; TEMP 36.5; O2SAT 95–100
--- NOTE | ~2020-07-27 | XR_ITS ---
EXAMINATION: XR chest 2V EXAM DATE: 07/27/2020 17:28 INDICATION: chest pain, ABD PAIN, SOB, NAUSEA, HX CHF, CAD, HTN . TECHNIQUE: Frontal and lateral projections of the chest obtained and reviewed. Comparison is made to prior examination from 07/16/2020. FINDINGS: Severe chronic hyperinflation. There are coronary artery stents. There is mild cardiomegal y. There is aortic arteriosclerosis. No confluent consolidation, pneumothorax or pleural effusion sebastian pected. There are bony degenerative changes. Accounting for differences in technique, there is no sig nificant interval change. IMPRESSION: Hyperinflation. Other chronic findings as above. Reviewed, dictated and finalized at location A.
--- NOTE | 2020-07-27 16:50 | ED.CHESTPAIN ---
HPI - Chest Pain General Chief Complaint: Chest Pain Stated Complaint: chest pain Time Seen by Provider: 07/27/20 16:36 Source: patient, family () and old records reviewed Mode of arrival: ambulatory Limitations: no limitations History of Present Illness HPI narrative: Patient is a 80 year old female who presents to ED complaining of chest pain that radiates to abdomen. She reports pain started at 10 am today. She was seen and discharged for same complaint 3 days ago. She reports nausea without vomiting. She reports pain is constant and that pain increases when she moves and breathes. She denies taking anything for pain. MD complaint: chest pain Related Data Home Medications Medication Instructions Recorded Confirmed Entresto 1 tablet PO Q12H 09/01/19 07/02/20 alprazolam 0.5 mg PO TID PRN 09/01/19 07/02/20 clopidogrel 75 mg PO DAILY 09/01/19 07/02/20 hydralazine 10 mg PO TID 09/01/19 07/02/20 levothyroxine 125 mcg PO DAILY 09/01/19 07/02/20 metoprolol succinate 50 mg PO DAILY 09/01/19 07/02/20 nitroglycerin 0.4 mg SUBLINGUAL Q5M PRN 09/01/19 07/02/20 trazodone 100 mg PO HS 09/01/19 07/02/20 ferrous sulfate 325 mg PO DAILY 09/06/19 07/02/20 prednisolone acetate 1 % RIGHTEYE DAILY 09/06/19 07/02/20 oxybutynin chloride 10 mg PO DAILY 03/20/20 07/02/20 acyclovir 1,000 mg PO DAILY 05/31/20 07/02/20 sertraline 25 mg PO DAILY 06/16/20 07/02/20 furosemide 20 mg PO DAILY 07/02/20 07/02/20 Allergies Allergy/AdvReac Type Severity Reaction Status Date / Time Penicillins Allergy Unknown Rash Verified 07/24/20 13:47 Review of Systems Review of Systems: Narrative: CONSTITUTIONAL: Denies fever, chills, or sweats. EYES: Denies visual changes, redness, or discharge. ENT: Denies rhinorrhea, congestion, sore throat, or otalgia. CARDIOVASCULAR: Reports chest pain, denies palpitations or edema. RESPIRATORY: Denies cough or dyspnea. GASTROINTESTINAL: Reports abdominal pain and nausea, denies vomiting or diarrhea. GENITOURINARY: Denies dysuria or hematuria. SKIN: Denies rash or itching. MUSCULOSKELETAL: Denies back pain, joint pain, or myalgia. NEUROLOGIC: Denies headache, numbness, dizziness, reports generalized weakness. PSYCHIATRIC: Denies anxiety or depression. [facility] Past Medical History Medical History (Updated 07/27/20 @ 21:00 by MICHAEL Hammond) Chronic anemia Chronic kidney disease, stage 3 Congestive heart failure Systolic and diastolic congestive heart failure Echo 11/27 showed EF 50%. Echo 01/14/2019: EF measured at 39%. September 2018 EF was 25%. Echo 12/02/2019 EF 50-55%. Grade 1 diastolic function. Coronary artery disease With multivessel surgical revascularization with PCI at [place] October 2017. Cardiac catheterization 10/17/2018-mild preserved intra-stent luminal diameter Current use of halfway anticoagulation Depression with anxiety Detached retina Right-sided, x2. Frequent headaches GERD (gastroesophageal reflux disease) With history of esophageal stricture requiring dilatation. History of GI bleed History of rectal polyps Hyperlipidemia Hypertension Hypothyroidism TSH in November 2019 was a bit low, with normal T4. Irritable bowel syndrome Ischemic cardiomyopathy Mitral valve prolapse Myasthenia gravis Questionable history of. Obstructive sleep apnea Ocular herpes zoster History of shingles to the left eye, on chronic antiviral therapy. Paroxysmal atrial fibrillation No longer on long-term anticoagulation due to history of falls. Peripheral neuropathy Rectal polyp Restless leg syndrome Shingles Solitary rectal ulcer syndrome Stage III chronic kidney disease Surgical History Surgical History Status post appendectomy Status post bilateral hip replacements Status post bilateral knee replacements Status post breast biopsy Bilateral with benign histology. Status post carpal tunnel release Status post cataract extraction Bilateral. S
--- NOTE | 2020-07-27 16:58 | ECG_ITS ---
Measurements Intervals [place] Rate: 68 P: [place]: 0 QRS: -15 QRSD: 85 T: 66 QT: 402 QTc: 428 Interpretive Statements SINUS RHYTHM FREQUENT ATRIAL PREMATURE COMPLEXES ANTEROSEPTAL INFARCT, AGE INDETERMINATE BASELINE ARTIFACT- V1, V3-V6 ABNORMAL ECG Electronically Signed On 07-27-2020 20:40:40 CDT by Marlon Joe D.O.
[2020-07-27 17:05] LABS: Basophils Percent Auto 0.5 % (0.2-1.2); Eosinophils Percent Auto 0.7 % (0-4.4); Hematocrit 32.6 % (37.0-47.0); Hemoglobin 10.7 g/dL (12.0-15.0); Immature Granulocyte Absolute 0.04 K/mm3 (0.00-0.031); Immature Granulocyte Percent A 0.7 % (0-0.5); Lymphocytes Percent Auto 20.5 % (18.3-44.2); Mean Corpuscular HGB Conc 32.8 g/dl (32-36); Mean Corpuscular Hemoglobin 32.2 pg (26-34); Mean Corpuscular Volume 98.2 fl (80-100); Mean Platelet Volume 9.3 fl (7.4-10.4); Monocytes Absolute Auto 0.5 K/mm3 (0.1-0.6); Neutrophils Absolute Auto 4.1 K/mm3 (1.3-6.7); Neutrophils Percent Auto 69.6 % (45.5-73.1); Platelet Count Result 304 k/mm3 (150-375); Red Blood Count 3.32 M/mm3 (4.2-5.4); Red Cell Distribution Width 12.4 % (11.5-14.5); White Blood Count 5.9 K/mm3 (4.5-10.0)
--- NOTE | 2020-07-27 17:24 | PC.NURSE ---
PT HAS RETURNED FROM RADIOLOGY AT THIS TIME.
[2020-07-27] MEDS: ONDANSETRON INJ 4 MG/2 ML VIAL IV PUSH (17:28)
[2020-07-27 17:43] LABS: Add Urine Microscopic? YES; Appearance Urine Clear (Clear); Bilirubin Urine Negative (Negative); Blood Urine Negative (Negative); Color Urine Yellow (Yellow); Glucose Urine UA Negative (Negative); Ketones Urine Negative (Negative); Leukocyte Esterase Ur 1+ LEU/UL (Negative); Mucus Urine Rare /lpf; Nitrate Urine Negative (Negative); Protein Urine Negative (Negative); RBC Urine 0-2 /hpf (0-2); Specific Grav Ur 1.008 (1.001-1.035); Urobilinogen Urine Negative mg/dL (<2.0)
[2020-07-27 17:57] LABS: Alanine Aminotransferase 16 U/L (4-35); Albumin Level 3.5 g/dL (3.5-5.1); Alkaline Phosphatase 60 U/L (38-126); Anion Gap 5 mmol/L (8-16); Aspartate Amino Transferase 34 U/L (14-36); Bilirubin,Total 0.4 mg/dL (0.2-1.3); Blood Urea Nitrogen 25 mg/dL (7-17); Calcium 8.3 mg/dL (8.4-10.2); Carbon Dioxide 34 mmol/L (22-30); Chloride 91 mmol/L (98-107); Estimated CRCL calculation 19 ml/min; Estimated Glomerular Filt Rate 36; Glucose 90 mg/dL (65-105); Lipase 116 U/L (23-300); Potassium 3.6 mmol/L (3.4-5.0); Sodium 130 mmol/L (137-145)
[2020-07-27 18:10] LABS: Troponin I < 0.012 ng/mL (0.000-0.034)
[2020-07-27] MEDS: BELLADONNA ALK/PHENOB ELIX 10 ML, MAG HYDROX/ALUMINUM HYD/SIMETH 30 ML, LIDOCAINE HCL 2... PO (18:32)
[2020-07-27] MEDS: LORazepam INJ (*CRX) 2 MG/ML VIAL 0.5 MG IV PUSH (18:32)
--- NOTE | 2020-07-27 19:11 | PC.NURSE ---
Assumed care of pt at this time. report from MODESTO Monroy
--- NOTE | 2020-07-27 19:13 | PC.NURSE ---
REPORT TO PHILLIP SALVADOR AT THIS TIME, SHE HAS ASSUMED PT CARE.
[2020-07-27 20:28] LABS: Troponin I < 0.012 ng/mL (0.000-0.034)
== END 2020-07-27 21:05 | disposition home or self-care (01) ==
PROVIDERS: Emergency Provider Nurse Practitioner; PCP Family Medicine
DX: R07.89 Other chest pain (principal); I25.10 Atherosclerotic heart disease of native coronary artery without angina pectoris; I13.0 Hypertensive heart and chronic kidney disease with heart failure and stage 1 through stage 4 chronic kidney disease, or unspecified chronic kidney disease; N18.30 Chronic kidney disease, stage 3 unspecified; I50.40 Unspecified combined systolic (congestive) and diastolic (congestive) heart failure; D63.1 Anemia in chronic kidney disease; E78.5 Hyperlipidemia, unspecified; E03.9 Hypothyroidism, unspecified; K58.9 Irritable bowel syndrome, unspecified; I34.1 Nonrheumatic mitral (valve) prolapse; G47.33 Obstructive sleep apnea (adult) (pediatric); I48.0 Paroxysmal atrial fibrillation; K21.9 Gastro-esophageal reflux disease without esophagitis; Z79.01 Long term (current) use of anticoagulants; Z87.19 Personal history of other diseases of the digestive system; G25.81 Restless legs syndrome; G62.9 Polyneuropathy, unspecified; R10.9 Unspecified abdominal pain; Z98.42 Cataract extraction status, left eye; Z98.41 Cataract extraction status, right eye; Z96.653 Presence of artificial knee joint, bilateral; Z96.643 Presence of artificial hip joint, bilateral; I49.1 Atrial premature depolarization; R94.31 Abnormal electrocardiogram [ECG] [EKG]
CPT/HCPCS: 36415; 71046; 80053; 81001; 83690; 84484; 85025; 87077; 87086; 87088; 87186; 93005; 96374; 96375; 99284; A9270; J2060; J2405

== ENCOUNTER 2020-08-01 13:47 | Emergency (ER) | payer MEDICARE, SELFPAY ==
--- NOTE | ~2020-08-01 | XR_ITS ---
EXAMINATION: XR chest 1V portable DATE: 08/01/2020 14:15 INDICATION: Chronic chest pain TECHNIQUE: frontal view of the chest was obtained. COMPARISON: Chest radiograph dated 07/27/2020 FINDINGS: The lungs remain hyperexpanded but clear with no focal airspace opacities, pulmonary edema, pleural e ffusion or pneumothorax. Degenerative skeletal changes including severe bilateral glenohumeral osteoa rthritis. Change of prior bilateral acromioplasty is and distal clavicle resections. IMPRESSION: 1. 1 ectatic hyperexpansion of the lungs. No acute cardiopulmonary disease. Reviewed, dictated and finalized at location A.
[2020-08-01 13:45] VITALS: BP 124/76; PULSE 63; RESP 20; TEMP 36.4; O2SAT 96
--- NOTE | 2020-08-01 13:57 | ECG_ITS ---
Measurements Intervals [place] Rate: 63 P: 79 [place]: 152 QRS: -69 QRSD: 93 T: 47 QT: 421 QTc: 432 Interpretive Statements SINUS RHYTHM ATRIAL PREMATURE COMPLEXES LEFT AXIS DEVIATION LOW QRS VOLTAGE IN LIMB LEADS ANTEROSEPTAL INFARCT, AGE INDETERMINATE BORDERLINE T WAVE ABNORMALITY- INFERIOR LEADS ABNORMAL ECG Electronically Signed On 08-01-2020 19:32:27 CDT by Marlon Joe D.O.
[2020-08-01 14:00] VITALS: BP 124/89; PULSE 62; RESP 20; O2SAT 100
[2020-08-01 14:52] LABS: Basophils Percent Auto 0.5 % (0.2-1.2); Eosinophils Percent Auto 0.7 % (0-4.4); Hematocrit 29.7 % (37.0-47.0); Hemoglobin 9.6 g/dL (12.0-15.0); Immature Granulocyte Absolute 0.02 K/mm3 (0.00-0.031); Immature Granulocyte Percent A 0.5 % (0-0.5); Lymphocytes Absolute Auto 0.84 K/mm3 (0.9-3.2); Lymphocytes Percent Auto 20.3 % (18.3-44.2); Mean Corpuscular HGB Conc 32.3 g/dl (32-36); Mean Corpuscular Hemoglobin 31.6 pg (26-34); Mean Corpuscular Volume 97.7 fl (80-100); Mean Platelet Volume 8.8 fl (7.4-10.4); Monocytes Absolute Auto 0.3 K/mm3 (0.1-0.6); Monocytes Percent Auto 7.7 % (2.6-8.5); Neutrophils Absolute Auto 2.9 K/mm3 (1.3-6.7); Neutrophils Percent Auto 70.3 % (45.5-73.1); Platelet Count Result 229 k/mm3 (150-375); Red Blood Count 3.04 M/mm3 (4.2-5.4); Red Cell Distribution Width 12.3 % (11.5-14.5); White Blood Count 4.1 K/mm3 (4.5-10.0)
[2020-08-01 15:00] VITALS: BP 126/74; PULSE 59; RESP 20; O2SAT 100
[2020-08-01 15:00] LABS: Prothrombin Time 12.5 Seconds (11.1-14.7)
--- NOTE | 2020-08-01 15:00 | ED.CHESTPAIN ---
HPI - Chest Pain General Chief Complaint: Chest Pain Stated Complaint: cp Time Seen by Provider: 08/01/20 13:58 Source: patient Mode of arrival: ambulatory Limitations: no limitations History of Present Illness HPI narrative: Patient is 80-year-old female who presents from home with EMS noting pain from the pelvic region all the way up into the chest multiple similar occurrences in the past pain began this morning after eating breakfast patient has not taken anything for her symptoms presents per EMS appears to be uncomfortable but in no distress symptoms are consistent with past exacerbation Related Data Home Medications Medication Instructions Recorded Confirmed Entresto 1 tablet PO Q12H 09/01/19 07/02/20 alprazolam 0.5 mg PO TID PRN 09/01/19 07/02/20 clopidogrel 75 mg PO DAILY 09/01/19 07/02/20 hydralazine 10 mg PO TID 09/01/19 07/02/20 levothyroxine 125 mcg PO DAILY 09/01/19 07/02/20 metoprolol succinate 50 mg PO DAILY 09/01/19 07/02/20 nitroglycerin 0.4 mg SUBLINGUAL Q5M PRN 09/01/19 07/02/20 trazodone 100 mg PO HS 09/01/19 07/02/20 ferrous sulfate 325 mg PO DAILY 09/06/19 07/02/20 prednisolone acetate 1 % RIGHTEYE DAILY 09/06/19 07/02/20 oxybutynin chloride 10 mg PO DAILY 03/20/20 07/02/20 acyclovir 1,000 mg PO DAILY 05/31/20 07/02/20 sertraline 25 mg PO DAILY 06/16/20 07/02/20 furosemide 20 mg PO DAILY 07/02/20 07/02/20 Allergies Allergy/AdvReac Type Severity Reaction Status Date / Time Penicillins Allergy Unknown Rash Verified 07/24/20 13:47 Review of Systems Review of Systems: All systems reviewed & are unremarkable except as noted in HPI and below PMFSH Past Medical History Medical History (Updated 08/01/20 @ 15:26 by Everardo John PA-C) Chronic anemia Chronic kidney disease, stage 3 Congestive heart failure Systolic and diastolic congestive heart failure Echo 11/27 showed EF 50%. Echo 01/14/2019: EF measured at 39%. September 2018 EF was 25%. Echo 12/02/2019 EF 50-55%. Grade 1 diastolic function. Coronary artery disease With multivessel surgical revascularization with PCI at [place] October 2017. 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 Frequent headaches GERD (gastroesophageal reflux disease) With history of esophageal stricture requiring dilatation. History of GI bleed History of rectal polyps Hyperlipidemia Hypertension Hypothyroidism TSH in November 2019 was a bit low, with normal T4. Irritable bowel syndrome Ischemic cardiomyopathy Mitral valve prolapse Myasthenia gravis Questionable history of. Obstructive sleep apnea Ocular herpes zoster History of shingles to the left eye, on chronic antiviral therapy. Paroxysmal atrial fibrillation No longer on long-term anticoagulation due to history of falls. Peripheral neuropathy Rectal polyp Restless leg syndrome Shingles Solitary rectal ulcer syndrome Stage III chronic kidney disease Surgical History Surgical History Status post appendectomy Status post bilateral hip replacements Status post bilateral knee replacements Status post breast biopsy Bilateral with benign histology. Status post carpal tunnel release Status post cataract extraction Bilateral. Status post cholecystectomy Status post laminectomy Lumbar spine. Status post LASIK surgery Status post rotator cuff repair Status post tonsillectomy Family History Family History Mother Cerebrovascular accident Diabetes mellitus Hypertension Sibling Cerebrovascular accident Other Acute myocardial infarction Social History Social History Social History: The patient lives with her in [place], [place]. She has been twice, around 30 years recurrent joy
[2020-08-01 15:01] LABS: Partial Thromboplastin Time 25.4 SECONDS (22.3-36.8)
[2020-08-01 15:03] LABS: Alanine Aminotransferase 17 U/L (4-35); Albumin Level 3.8 g/dL (3.5-5.1); Alkaline Phosphatase 73 U/L (38-126); Anion Gap 7 mmol/L (8-16); Aspartate Amino Transferase 36 U/L (14-36); Bilirubin,Total 0.5 mg/dL (0.2-1.3); Blood Urea Nitrogen 20 mg/dL (7-17); Calcium 8.7 mg/dL (8.4-10.2); Carbon Dioxide 34 mmol/L (22-30); Chloride 88 mmol/L (98-107); Estimated Glomerular Filt Rate 36; Glucose 89 mg/dL (65-105); Lipase 92 U/L (23-300); Potassium 3.4 mmol/L (3.4-5.0); Sodium 129 mmol/L (137-145)
[2020-08-01 15:15] LABS: Troponin I < 0.012 ng/mL (0.000-0.034)
[2020-08-01] MEDS: FAMOTIDINE 20 MG/2 ML VIAL IV PUSH (15:44)
[2020-08-01] MEDS: LORazepam INJ (*CRX) 2 MG/ML VIAL 1 MG IV PUSH (15:44)
[2020-08-01] MEDS: LIDOCAINE HCL 2% VISC SOLN 15 ML UDC 20 ML PO (15:47)
[2020-08-01] MEDS: SODIUM CHLORIDE 0.9% IV 1,000 ML 999 ML IV CONT (15:47)
[2020-08-01] MEDS: MAG HYDROX/AL HYDROX/SIMETH 30 ML UDC PO (15:47)
[2020-08-01] MEDS: HYOSCYAMINE SULFATE 0.125 MG TABLET PO (15:47)
[2020-08-01 16:53] VITALS: BP 122/82; PULSE 60; RESP 20; O2SAT 100
== END 2020-08-01 16:55 | disposition home or self-care (01) ==
PROVIDERS: Emergency Medicine Emergency Medical Services; Emergency Provider Emergency Medicine; PCP Family Medicine
DX: R07.9 Chest pain, unspecified (principal); R10.9 Unspecified abdominal pain; G89.29 Other chronic pain; I25.10 Atherosclerotic heart disease of native coronary artery without angina pectoris; I13.0 Hypertensive heart and chronic kidney disease with heart failure and stage 1 through stage 4 chronic kidney disease, or unspecified chronic kidney disease; N18.30 Chronic kidney disease, stage 3 unspecified; I50.40 Unspecified combined systolic (congestive) and diastolic (congestive) heart failure; D63.1 Anemia in chronic kidney disease; E78.5 Hyperlipidemia, unspecified; E03.9 Hypothyroidism, unspecified; K58.9 Irritable bowel syndrome, unspecified; I34.1 Nonrheumatic mitral (valve) prolapse; G47.33 Obstructive sleep apnea (adult) (pediatric); I48.0 Paroxysmal atrial fibrillation; K21.9 Gastro-esophageal reflux disease without esophagitis; Z79.01 Long term (current) use of anticoagulants; Z87.19 Personal history of other diseases of the digestive system; G25.81 Restless legs syndrome; G62.9 Polyneuropathy, unspecified; Z98.42 Cataract extraction status, left eye; Z98.41 Cataract extraction status, right eye; Z96.653 Presence of artificial knee joint, bilateral; Z96.643 Presence of artificial hip joint, bilateral; I49.1 Atrial premature depolarization; R94.31 Abnormal electrocardiogram [ECG] [EKG]
CPT/HCPCS: 36415; 71045; 80053; 83690; 84484; 85025; 85610; 85730; 93005; 96361; 96374; 96375; 99284; A9270; J2060; J7030

== ENCOUNTER 2020-08-10 22:00 | Emergency (ER) | payer MEDICARE, SELFPAY ==
--- NOTE | ~2020-08-10 | XR_ITS ---
EXAMINATION: XR chest 2V DATE: 08/10/2020 22:41 INDICATION: Chest pain. TECHNIQUE: Frontal and lateral views of the chest were obtained. COMPARISON: Chest single view 08/01/2020, chest CT 06/29/2020 FINDINGS: There is no pneumonia, pleural effusion, or pneumothorax. Cardiomegaly is noted. Calcified hilar and mediastinal lymph nodes are consistent with old granulomatous disease. IMPRESSION: 1. Cardiomegaly. Reviewed, dictated and finalized at location A. ING LOT ATTENDANT AND CASHIER IMPRESSION: 1. Cardiomegaly.
--- NOTE | 2020-08-10 22:00 | ECG_ITS ---
Measurements Intervals [place] Rate: 73 P: 76 [place]: 158 QRS: -83 QRSD: 90 T: -5 QT: 407 QTc: 451 Interpretive Statements SINUS RHYTHM ATRIAL AND VENTRICULAR PREMATURE COMPLEXES LEFT AXIS DEVIATION ANTEROSEPTAL INFARCT, AGE INDETERMINATE BORDERLINE T WAVE ABNORMALITY- INFERIOR LEADS BASELINE ARTIFACT- I, III, AVR, AVL, AVF, V3-V6 ABNORMAL ECG Electronically Signed On 08-11-2020 6:57:28 HEAD WORKER by Marlon Joe D.O.
--- NOTE | 2020-08-10 22:07 | ED.CHESTPAIN ---
HPI - Chest Pain General Chief Complaint: Chest Pain Stated Complaint: cp, sob, all over body pain Time Seen by Provider: 08/10/20 22:04 Source: patient Mode of arrival: EMS Limitations: no limitations History of Present Illness HPI narrative: Patient is an 80-year-old female complaining of chest pain, left and right chest wall, 10 out of 10, tightness, nonradiating accompanied by pain all over and shortness of breath. Patient has had multiple ER visits for the same complaints. Related Data Home Medications Medication Instructions Recorded Confirmed Entresto 1 tablet PO Q12H 09/01/19 07/02/20 alprazolam 0.5 mg PO TID PRN 09/01/19 07/02/20 clopidogrel 75 mg PO DAILY 09/01/19 07/02/20 hydralazine 10 mg PO TID 09/01/19 07/02/20 levothyroxine 125 mcg PO DAILY 09/01/19 07/02/20 metoprolol succinate 50 mg PO DAILY 09/01/19 07/02/20 nitroglycerin 0.4 mg SUBLINGUAL Q5M PRN 09/01/19 07/02/20 trazodone 100 mg PO HS 09/01/19 07/02/20 ferrous sulfate 325 mg PO DAILY 09/06/19 07/02/20 prednisolone acetate 1 % RIGHTEYE DAILY 09/06/19 07/02/20 oxybutynin chloride 10 mg PO DAILY 03/20/20 07/02/20 acyclovir 1,000 mg PO DAILY 05/31/20 07/02/20 sertraline 25 mg PO DAILY 06/16/20 07/02/20 furosemide 20 mg PO DAILY 07/02/20 07/02/20 Allergies Allergy/AdvReac Type Severity Reaction Status Date / Time Penicillins Allergy Unknown Rash Verified 08/10/20 22:21 Review of Systems Review of Systems: All systems reviewed & are unremarkable except as noted in HPI and below Constitutional: Constitutional: Denies body ache(s), Denies chills, Denies excessive sweating, Denies fatigue, Denies fever(s), Denies headache(s), Denies lethargy, Denies malaise, Denies weakness and Denies weight loss Eyes: Eyes: Denies blurry vision, Denies change in vision and Denies loss of vision ENT: Denies dizziness, Denies ear discharge, Denies headache(s), Denies lip swelling, Denies epistaxis, Denies nasal congestion, Denies neck pain, Denies throat swelling and Denies tongue swelling Cardiovascular: Cardiovascular: Denies diaphoresis, Denies rapid heart rate, Denies edema, Denies irregular heart rhythm, Denies lightheadedness, Denies palpitations, Denies dyspnea and Denies dyspnea on exertion Respiratory: Respiratory: Denies chest congestion, Denies cough and Denies hemoptysis Gastrointestinal: Gastrointestinal: Denies abdominal pain, Denies melena, Denies hematochezia, Denies diarrhea, Denies nausea, Denies vomiting and Denies hematemesis Musculoskeletal: Musculoskeletal: Denies abnormal gait, Denies deformity, Denies joint swelling, Denies limited range of motion, Denies neck pain and Denies numbness Neurologic: Denies Abnormal speech present, Denies abnormal gait, Denies confusion, Denies dizziness, Denies headache(s), Denies focal weakness, Denies loss of vision, Denies numbness, Denies Other visual disturbances, Denies Sensory deficit (Neuro) and Denies weakness Psychiatric: Psychiatric: Denies confusion, Denies depression, Denies auditory hallucinations, Denies homicidal ideation and Denies suicidal ideation Endocrine: Endocrine: Denies cold intolerance, Denies excessive sweating, Denies fatigue, Denies heat intolerance and Denies palpitations Hematologic/Lymphatic: Hematologic/Lymphatic: Denies easy bleeding and Denies easy bruising Allergic/Immunologic: Allergic/Immunologic: Denies lip swelling, Denies throat swelling and Denies tongue swelling [facility] Past Medical History Medical History (Updated 08/10/20 @ 23:38 by José Miguel Mclean MD) Chronic anemia Chronic kidney disease, stage 3 Congestive heart failure Systolic and diastolic congestive heart failure Echo 11/27 showed EF 50%. Echo 01/14/2019: EF measured at 39%. September 2018 EF was 25%. Echo 12/02/2019 EF 50-55%. Grade 1 diastolic function. Coronary artery disease With multivessel surgical revascularization with PCI at [place] October 2017. Cardiac catheterization 10/17/2018-mild preserved intra-stent l
[2020-08-10 22:14] VITALS: BP 136/76; PULSE 79; RESP 16; TEMP 36.6; O2SAT 98
[2020-08-10 22:45] LABS: Basophils Percent Auto 0.2 % (0.2-1.2); Eosinophils Percent Auto 0.9 % (0-4.4); Hematocrit 25.8 % (37.0-47.0); Hemoglobin 8.4 g/dL (12.0-15.0); Immature Granulocyte Absolute 0.01 K/mm3 (0.00-0.031); Immature Granulocyte Percent A 0.2 % (0-0.5); Lymphocytes Absolute Auto 1.22 K/mm3 (0.9-3.2); Lymphocytes Percent Auto 28.4 % (18.3-44.2); Mean Corpuscular HGB Conc 32.6 g/dl (32-36); Mean Corpuscular Hemoglobin 31.9 pg (26-34); Mean Corpuscular Volume 98.1 fl (80-100); Mean Platelet Volume 9.1 fl (7.4-10.4); Monocytes Absolute Auto 0.6 K/mm3 (0.1-0.6); Monocytes Percent Auto 12.8 % (2.6-8.5); Neutrophils Absolute Auto 2.5 K/mm3 (1.3-6.7); Neutrophils Percent Auto 57.5 % (45.5-73.1); Platelet Count Result 225 k/mm3 (150-375); Red Blood Count 2.63 M/mm3 (4.2-5.4); Red Cell Distribution Width 12.8 % (11.5-14.5); White Blood Count 4.3 K/mm3 (4.5-10.0)
[2020-08-10 22:50] LABS: INR 0.9; Prothrombin Time 13.1 Seconds (11.1-14.7)
[2020-08-10 22:51] LABS: Partial Thromboplastin Time 26.3 SECONDS (22.3-36.8)
[2020-08-10 22:55] LABS: Anion Gap 8 mmol/L (8-16); Blood Urea Nitrogen 25 mg/dL (7-17); Calcium 8.4 mg/dL (8.4-10.2); Carbon Dioxide 32 mmol/L (22-30); Chloride 92 mmol/L (98-107); Estimated Glomerular Filt Rate 36; Glucose 90 mg/dL (65-105); Potassium 3.9 mmol/L (3.4-5.0); Sodium 132 mmol/L (137-145)
[2020-08-10 23:05] LABS: Troponin I < 0.012 ng/mL (0.000-0.034)
[2020-08-10] MEDS: HYDROcodone/acetaminophen (*CRX) 5-325 MG TABLET 1 TAB PO (23:31)
--- NOTE | 2020-08-10 23:53 | PC.NURSE ---
2nd hydrocodone ordered. only given 1 tablet to pt.
[2020-08-10 23:58] VITALS: BP 136/76; PULSE 76; RESP 19; O2SAT 98
== END 2020-08-11 00:07 | disposition home or self-care (01) ==
PROVIDERS: Emergency Medicine; Emergency Provider Emergency Medicine; PCP Family Medicine
DX: R07.89 Other chest pain (principal); D64.9 Anemia, unspecified; I13.0 Hypertensive heart and chronic kidney disease with heart failure and stage 1 through stage 4 chronic kidney disease, or unspecified chronic kidney disease; N18.30 Chronic kidney disease, stage 3 unspecified; I50.82 Biventricular heart failure; F41.9 Anxiety disorder, unspecified; F32.9 Major depressive disorder, single episode, unspecified; E78.5 Hyperlipidemia, unspecified; Z79.01 Long term (current) use of anticoagulants; E03.9 Hypothyroidism, unspecified; G47.30 Sleep apnea, unspecified; K21.9 Gastro-esophageal reflux disease without esophagitis
CPT/HCPCS: 36415; 71046; 80048; 84484; 85025; 85610; 85730; 93005; 99284; A9270

== ENCOUNTER 2020-08-13 13:12 | Emergency (ER) | payer MEDICARE, SELFPAY ==
[2020-08-13] VITALS (7 sets, daily range): BP systolic 133–155; BP diastolic 60–96; PULSE 61–67; RESP 13–20; TEMP 36.4; O2SAT 96–100
--- NOTE | ~2020-08-13 | XR_ITS ---
EXAMINATION: XR chest 1V portable DATE: 08/13/2020 16:08 INDICATION: This of breath. Upper abdominal pain. Feeling faint. TECHNIQUE: frontal view of the chest was obtained. COMPARISON: Chest radiograph dated 08/10/[address] dated 06/29/2020 FINDINGS: Hyperexpansion of the lungs. Eventration along the left hemidiaphragm. No focal airspace opacities, p ulmonary edema, pleural effusion or pneumothorax. Cardiomegaly with left atrial enlargement. Multiple coronary artery stents. Moderate right and severe left glenohumeral osteoarthritis with large loose osteochondral body along the right biceps tendon sheath. Postoperative change of likely bilateral dis stephanie clavicle resections. Mild S-shaped thoracolumbar scoliosis with severe spondylosis. Cholecystecto my clips in the right upper quadrant. Visualized bones and soft tissues are unremarkable. IMPRESSION: 1. Chronic hyperexpansion of the lungs. No acute cardiopulmonary disease. 2. Cardiomegaly. Reviewed, dictated and finalized at location A. RUMENT REPAIR SUPERVISOR
--- NOTE | 2020-08-13 14:35 | ECG_ITS ---
Measurements Intervals [place] Rate: 61 P: 78 [place]: 157 QRS: 20 QRSD: 82 T: 47 QT: 427 QTc: 434 Interpretive Statements SINUS RHYTHM ATRIAL PREMATURE COMPLEXES ANTEROSEPTAL INFARCT, AGE INDETERMINATE BASELINE ARTIFACT- I, II, III, AVR, AVL, AVF ABNORMAL ECG Electronically Signed On 08-13-2020 14:43:39 FOOD TRAY ASSEMBLER by Marlon Joe D.O.
[2020-08-13 15:51] LABS: Basophils Percent Auto 0.5 % (0.2-1.2); Eosinophils Percent Auto 0.7 % (0-4.4); Hematocrit 27.4 % (37.0-47.0); Hemoglobin 8.8 g/dL (12.0-15.0); Immature Granulocyte Absolute 0.02 K/mm3 (0.00-0.031); Immature Granulocyte Percent A 0.5 % (0-0.5); Lymphocytes Absolute Auto 0.85 K/mm3 (0.9-3.2); Mean Corpuscular HGB Conc 32.1 g/dl (32-36); Mean Corpuscular Hemoglobin 31.9 pg (26-34); Mean Corpuscular Volume 99.3 fl (80-100); Mean Platelet Volume 9.1 fl (7.4-10.4); Monocytes Absolute Auto 0.5 K/mm3 (0.1-0.6); Monocytes Percent Auto 11.1 % (2.6-8.5); Neutrophils Absolute Auto 2.7 K/mm3 (1.3-6.7); Neutrophils Percent Auto 66.2 % (45.5-73.1); Platelet Count Result 226 k/mm3 (150-375); Red Blood Count 2.76 M/mm3 (4.2-5.4); Red Cell Distribution Width 13.1 % (11.5-14.5); White Blood Count 4.1 K/mm3 (4.5-10.0)
[2020-08-13 16:02] LABS: Anion Gap 6 mmol/L (8-16); Blood Urea Nitrogen 23 mg/dL (7-17); Calcium 8.1 mg/dL (8.4-10.2); Carbon Dioxide 30 mmol/L (22-30); Chloride 94 mmol/L (98-107); Estimated CRCL calculation 20 ml/min; Estimated Glomerular Filt Rate 39; Glucose 90 mg/dL (65-105); Sodium 130 mmol/L (137-145)
[2020-08-13] MEDS: SODIUM CHLORIDE 0.9% IV 500 ML 999 ML IV CONT (16:14)
[2020-08-13] MEDS: LIDOCAINE HCL 2% VISC SOLN 15 ML UDC 20 ML PO (16:14)
[2020-08-13] MEDS: LORazepam INJ (*CRX) 2 MG/ML VIAL 1 MG IV PUSH (16:15)
[2020-08-13] MEDS: MAG HYDROX/AL HYDROX/SIMETH 30 ML UDC PO (16:15)
[2020-08-13] MEDS: FAMOTIDINE 20 MG/2 ML VIAL IV PUSH (16:15)
--- NOTE | 2020-08-13 16:15 | ED.GENADULT ---
HPI - General Adult General Chief complaint: Syncope Stated complaint: multiple complaints Time Seen by Provider: 08/13/20 15:32 Source: patient, family and EMS Mode of arrival: EMS Limitations: no limitations History of Present Illness HPI narrative: Patient is an 80-year-old female who presents to emergency department for near syncope this morning has been experiencing chest and abdominal discomfort which is normal for the patient with an episode of nausea patient on arrival per EMS is in no distress does not appear uncomfortable patient with similar occurrences in the past denies any recent medication changes illness fever rectal bleeding or melena and is otherwise in the room in no distress Related Data Home Medications Medication Instructions Recorded Confirmed Entresto 1 tablet PO Q12H 09/01/19 07/02/20 alprazolam 0.5 mg PO TID PRN 09/01/19 07/02/20 clopidogrel 75 mg PO DAILY 09/01/19 07/02/20 hydralazine 10 mg PO TID 09/01/19 07/02/20 levothyroxine 125 mcg PO DAILY 09/01/19 07/02/20 metoprolol succinate 50 mg PO DAILY 09/01/19 07/02/20 nitroglycerin 0.4 mg SUBLINGUAL Q5M PRN 09/01/19 07/02/20 trazodone 100 mg PO HS 09/01/19 07/02/20 ferrous sulfate 325 mg PO DAILY 09/06/19 07/02/20 prednisolone acetate 1 % RIGHTEYE DAILY 09/06/19 07/02/20 oxybutynin chloride 10 mg PO DAILY 03/20/20 07/02/20 acyclovir 1,000 mg PO DAILY 05/31/20 07/02/20 sertraline 25 mg PO DAILY 06/16/20 07/02/20 furosemide 20 mg PO DAILY 07/02/20 07/02/20 Allergies Allergy/AdvReac Type Severity Reaction Status Date / Time Penicillins Allergy Unknown Rash Verified 08/13/20 14:40 Review of Systems Review of Systems: All systems reviewed & are unremarkable except as noted in HPI and below PMFSH Past Medical History Medical History (Updated 08/13/20 @ 17:13 by Everardo John PA-C) Chronic anemia Chronic kidney disease, stage 3 Congestive heart failure Systolic and diastolic congestive heart failure Echo 11/27 showed EF 50%. Echo 01/14/2019: EF measured at 39%. September 2018 EF was 25%. Echo 12/02/2019 EF 50-55%. Grade 1 diastolic function. Coronary artery disease With multivessel surgical revascularization with PCI at [place] October 2017. 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 Frequent headaches GERD (gastroesophageal reflux disease) With history of esophageal stricture requiring dilatation. History of GI bleed History of rectal polyps Hyperlipidemia Hypertension Hypothyroidism TSH in November 2019 was a bit low, with normal T4. Irritable bowel syndrome Ischemic cardiomyopathy Mitral valve prolapse Myasthenia gravis Questionable history of. Obstructive sleep apnea Ocular herpes zoster History of shingles to the left eye, on chronic antiviral therapy. Paroxysmal atrial fibrillation No longer on long-term anticoagulation due to history of falls. Peripheral neuropathy Rectal polyp Restless leg syndrome Shingles Solitary rectal ulcer syndrome Stage III chronic kidney disease Surgical History Surgical History Status post appendectomy Status post bilateral hip replacements Status post bilateral knee replacements Status post breast biopsy Bilateral with benign histology. Status post carpal tunnel release Status post cataract extraction Bilateral. Status post cholecystectomy Status post laminectomy Lumbar spine. Status post LASIK surgery Status post rotator cuff repair Status post tonsillectomy Family History Family History Mother Cerebrovascular accident Diabetes mellitus Hypertension Sibling Cerebrovascular accident Other Acute myocardial infarction Social History Social History Social History: The patient
[2020-08-13 16:42] LABS: Add Urine Microscopic? YES; Appearance Urine Cloudy (Clear); Bilirubin Urine Negative (Negative); Blood Urine Negative (Negative); Color Urine Yellow (Yellow); Glucose Urine UA Negative (Negative); Ketones Urine Negative (Negative); Leukocyte Esterase Ur Trace LEU/UL (Negative); Mucus Urine Rare /lpf; Nitrate Urine Negative (Negative); Protein Urine Negative (Negative); RBC Urine 0-2 /hpf (0-2); Specific Grav Ur 1.011 (1.001-1.035); Squamous Epithelial Cell Urine Rare /hpf (Few); Urobilinogen Urine Negative mg/dL (<2.0)
== END 2020-08-13 17:32 | disposition home or self-care (01) ==
PROVIDERS: Emergency Medicine Emergency Medical Services; Emergency Provider Emergency Medicine; PCP Family Medicine
DX: R07.9 Chest pain, unspecified (principal); R10.9 Unspecified abdominal pain; I25.10 Atherosclerotic heart disease of native coronary artery without angina pectoris; I13.0 Hypertensive heart and chronic kidney disease with heart failure and stage 1 through stage 4 chronic kidney disease, or unspecified chronic kidney disease; N18.30 Chronic kidney disease, stage 3 unspecified; I50.40 Unspecified combined systolic (congestive) and diastolic (congestive) heart failure; D63.1 Anemia in chronic kidney disease; E78.5 Hyperlipidemia, unspecified; E03.9 Hypothyroidism, unspecified; K58.9 Irritable bowel syndrome, unspecified; I34.1 Nonrheumatic mitral (valve) prolapse; G47.33 Obstructive sleep apnea (adult) (pediatric); I48.0 Paroxysmal atrial fibrillation; K21.9 Gastro-esophageal reflux disease without esophagitis; Z87.19 Personal history of other diseases of the digestive system; G25.81 Restless legs syndrome; G62.9 Polyneuropathy, unspecified; Z98.42 Cataract extraction status, left eye; Z98.41 Cataract extraction status, right eye; Z96.653 Presence of artificial knee joint, bilateral; Z96.643 Presence of artificial hip joint, bilateral
CPT/HCPCS: 36415; 71045; 80048; 81001; 85025; 93005; 96361; 96374; 96375; 99284; A9270; J2060; J7040

== ENCOUNTER 2020-08-27 14:51 | Emergency (ER) | payer MEDICARE, SELFPAY ==
--- NOTE | ~2020-08-27 | XR_ITS ---
EXAMINATION: XR chest 2V EXAM DATE: 08/27/2020 15:50 INDICATION: Upper chest pain. TECHNIQUE: Frontal and lateral projections of the chest obtained and reviewed. Comparison is made to prior examination from 08/13/2020. FINDINGS: Severe chronic hyperinflation. The lungs are clear. There are no pleural effusions. The cardiomediastinal silhouette is within normal limits. There is no pneumothorax suspected. There is aortic arteriosclerosis. Coronary artery stents circumflex and left anterior descending coronary allyson zofia. IMPRESSION: 1. No acute cardiopulmonary findings. 2. Hyperinflation. Reviewed, dictated and finalized at location A. ENTICE COOK
[2020-08-27 15:07] VITALS: BP 133/89; PULSE 55; RESP 16; TEMP 36.2; O2SAT 95
--- NOTE | 2020-08-27 15:09 | ECG_ITS ---
Measurements Intervals [place] Rate: 67 P: 87 [place]: 155 QRS: 50 QRSD: 94 T: 66 QT: 414 QTc: 440 Interpretive Statements SINUS RHYTHM ATRIAL PREMATURE COMPLEX ANTEROSEPTAL INFARCT, AGE INDETERMINATE BASELINE ARTIFACT- I, II, III, AVR, AVL ABNORMAL ECG Electronically Signed On 08-27-2020 15:14:25 LATEX SPOOLER by Marlon Joe D.O.
[2020-08-27 15:27] LABS: Basophils Percent Auto 0.4 % (0.2-1.2); Eosinophils Percent Auto 0.2 % (0-4.4); Hematocrit 29.1 % (37.0-47.0); Hemoglobin 9.8 g/dL (12.0-15.0); Immature Granulocyte Absolute 0.01 K/mm3 (0.00-0.031); Immature Granulocyte Percent A 0.2 % (0-0.5); Lymphocytes Absolute Auto 0.98 K/mm3 (0.9-3.2); Lymphocytes Percent Auto 19.3 % (18.3-44.2); Mean Corpuscular HGB Conc 33.7 g/dl (32-36); Mean Corpuscular Hemoglobin 32.8 pg (26-34); Mean Corpuscular Volume 97.3 fl (80-100); Mean Platelet Volume 9.3 fl (7.4-10.4); Monocytes Absolute Auto 0.6 K/mm3 (0.1-0.6); Monocytes Percent Auto 12.4 % (2.6-8.5); Neutrophils Absolute Auto 3.4 K/mm3 (1.3-6.7); Neutrophils Percent Auto 67.5 % (45.5-73.1); Platelet Count Result 297 k/mm3 (150-375); Red Blood Count 2.99 M/mm3 (4.2-5.4); Red Cell Distribution Width 13.2 % (11.5-14.5); White Blood Count 5.1 K/mm3 (4.5-10.0)
[2020-08-27 15:36] VITALS: PULSE 67
[2020-08-27 15:36] LABS: INR 0.9; Prothrombin Time 12.7 Seconds (11.1-14.7)
[2020-08-27 15:37] LABS: Partial Thromboplastin Time 26.5 SECONDS (22.3-36.8)
[2020-08-27 15:39] LABS: Anion Gap 9 mmol/L (8-16); Blood Urea Nitrogen 21 mg/dL (7-17); Calcium 8.6 mg/dL (8.4-10.2); Carbon Dioxide 27 mmol/L (22-30); Chloride 91 mmol/L (98-107); Estimated CRCL calculation 16 ml/min; Estimated Glomerular Filt Rate 29; Glucose 94 mg/dL (65-105); Potassium 4.2 mmol/L (3.4-5.0); Sodium 127 mmol/L (137-145)
[2020-08-27 15:51] LABS: Troponin I < 0.012 ng/mL (0.000-0.034)
[2020-08-27 16:27] VITALS: BP 151/79; PULSE 68; RESP 17; O2SAT 100
[2020-08-27 16:44] VITALS: BP 159/71; PULSE 64; RESP 21; O2SAT 99
[2020-08-27] MEDS: BELLADONNA ALK/PHENOB ELIX 10 ML, MAG HYDROX/ALUMINUM HYD/SIMETH 30 ML, LIDOCAINE HCL 2... PO (16:50)
--- NOTE | 2020-08-27 17:11 | ED.CHESTPAIN ---
HPI - Chest Pain General Chief Complaint: Chest Pain Stated Complaint: cp/abd pain Time Seen by Provider: 08/27/20 15:20 History of Present Illness HPI narrative: Patient is an 80-year-old female who presents ER with chest pain since early this morning. Center of her chest going down into her abdomen. Burning in nature. No nausea or vomiting. reports she has had some dark black loose stools. No syncope. Patient has had this issue chronically. Patient cannot identify any alleviating factors. Related Data Home Medications Medication Instructions Recorded Confirmed Entresto 1 tablet PO Q12H 09/01/19 07/02/20 alprazolam 0.5 mg PO TID PRN 09/01/19 07/02/20 clopidogrel 75 mg PO DAILY 09/01/19 07/02/20 hydralazine 10 mg PO TID 09/01/19 07/02/20 levothyroxine 125 mcg PO DAILY 09/01/19 07/02/20 metoprolol succinate 50 mg PO DAILY 09/01/19 07/02/20 nitroglycerin 0.4 mg SUBLINGUAL Q5M PRN 09/01/19 07/02/20 trazodone 100 mg PO HS 09/01/19 07/02/20 ferrous sulfate 325 mg PO DAILY 09/06/19 07/02/20 prednisolone acetate 1 % RIGHTEYE DAILY 09/06/19 07/02/20 oxybutynin chloride 10 mg PO DAILY 03/20/20 07/02/20 acyclovir 1,000 mg PO DAILY 05/31/20 07/02/20 sertraline 25 mg PO DAILY 06/16/20 07/02/20 furosemide 20 mg PO DAILY 07/02/20 07/02/20 Allergies Allergy/AdvReac Type Severity Reaction Status Date / Time Penicillins Allergy Unknown Rash Verified 08/27/20 15:38 Review of Systems Review of Systems: All systems reviewed & are unremarkable except as noted in HPI and below Constitutional: Constitutional: Denies chills, Denies fever(s) and Denies weakness ENT: Denies nasal congestion and Denies sore throat Cardiovascular: Cardiovascular: Reports chest pain and Denies radiating jaw, neck or arm pain Respiratory: Respiratory: Denies cough, Denies dyspnea and Denies wheezing Gastrointestinal: Gastrointestinal: Reports abdominal pain, Reports heartburn, Reports diarrhea, Denies nausea and Denies vomiting Comments: Dark black stools PMFSH Past Medical History Medical History (Updated 08/27/20 @ 17:25 by Pablito De Souza MD) Chronic anemia Chronic kidney disease, stage 3 Congestive heart failure Systolic and diastolic congestive heart failure Echo 11/27 showed EF 50%. Echo 01/14/2019: EF measured at 39%. September 2018 EF was 25%. Echo 12/02/2019 EF 50-55%. Grade 1 diastolic function. Coronary artery disease With multivessel surgical revascularization with PCI at [place] October 2017. Cardiac catheterization 10/17/2018-mild preserved intra-stent luminal diameter Current use of detention anticoagulation Depression with anxiety Detached retina Right-sided, x2. Frequent headaches GERD (gastroesophageal reflux disease) With history of esophageal stricture requiring dilatation. History of GI bleed History of rectal polyps Hyperlipidemia Hypertension Hypothyroidism TSH in November 2019 was a bit low, with normal T4. Irritable bowel syndrome Ischemic cardiomyopathy Mitral valve prolapse Myasthenia gravis Questionable history of. Obstructive sleep apnea Ocular herpes zoster History of shingles to the left eye, on chronic antiviral therapy. Paroxysmal atrial fibrillation No longer on long-term anticoagulation due to history of falls. Peripheral neuropathy Rectal polyp Restless leg syndrome Shingles Solitary rectal ulcer syndrome Stage III chronic kidney disease Surgical History Surgical History Status post appendectomy Status post bilateral hip replacements Status post bilateral knee replacements Status post breast biopsy Bilateral with benign histology. Status post carpal tunnel release Status post cataract extraction Bilateral. Status post cholecystectomy Status post laminectomy Lumbar spine. Status post LASIK surgery Status post rotator cuff repair Status post tonsillectomy Family History Family History (Reviewed 08/13/20 @ 16:23 by Everardo Joshua
[2020-08-27 17:34] VITALS: BP 158/81; PULSE 68; RESP 24; O2SAT 100
== END 2020-08-27 17:46 | disposition home or self-care (01) ==
PROVIDERS: General Practice; Emergency Provider Emergency Medicine; PCP Family Medicine
DX: K21.9 Gastro-esophageal reflux disease without esophagitis (principal); I25.10 Atherosclerotic heart disease of native coronary artery without angina pectoris; I13.0 Hypertensive heart and chronic kidney disease with heart failure and stage 1 through stage 4 chronic kidney disease, or unspecified chronic kidney disease; N18.30 Chronic kidney disease, stage 3 unspecified; I50.9 Heart failure, unspecified; D63.1 Anemia in chronic kidney disease; E78.5 Hyperlipidemia, unspecified; E03.9 Hypothyroidism, unspecified; K58.9 Irritable bowel syndrome, unspecified; I34.1 Nonrheumatic mitral (valve) prolapse; G47.33 Obstructive sleep apnea (adult) (pediatric); I48.0 Paroxysmal atrial fibrillation; Z87.19 Personal history of other diseases of the digestive system; G25.81 Restless legs syndrome; G62.9 Polyneuropathy, unspecified; Z98.42 Cataract extraction status, left eye; Z98.41 Cataract extraction status, right eye; Z96.653 Presence of artificial knee joint, bilateral; Z96.643 Presence of artificial hip joint, bilateral
CPT/HCPCS: 36415; 71046; 80048; 84484; 85025; 85610; 85730; 93005; 99284; A9270

== ENCOUNTER 2020-08-31 16:13 | Emergency (ER) | payer MEDICARE, SELFPAY ==
--- NOTE | ~2020-08-31 | XR_ITS ---
EXAMINATION: XR chest 2V DATE: 08/31/2020 17:09 INDICATION: Midsternal chest pain and shortness of breath TECHNIQUE: PA and lateral views of the chest were obtained. COMPARISON: Chest radiograph dated 08/27/[address] dated 06/29/2020 FINDINGS: Which remain clear with no focal airspace opacities, pulmonary edema, pleural effusion or pneumothora x. Focal eventration along the posterior left hemidiaphragm. Mild cardiomegaly with change of prior c oronary artery stents. Atherosclerotic aorta. Mild thoracic kyphosis with severe spondylosis. Partial ly visualized mild lumbar levocurvature. Postoperative change of likely bilateral distal clavicle res ections and right acromioplasty. Large degenerative loose body at the right shoulder likely along the long head biceps tendon sheath. IMPRESSION: 1. Hyperexpansion of lungs. No acute cardiopulmonary disease. 2. Cardiomegaly with prior coronary artery stenting. Reviewed, dictated and finalized at location . WEB DEVELOPMENT CONSULTANT
--- NOTE | 2020-08-31 16:19 | ECG_ITS ---
Measurements Intervals [place] Rate: 61 P: 98 [place]: 145 QRS: -36 QRSD: 86 T: 55 QT: 412 QTc: 416 Interpretive Statements SINUS RHYTHM ATRIAL PREMATURE COMPLEX LEFT AXIS DEVIATION ANTEROSEPTAL INFARCT, AGE INDETERMINATE BASELINE ARTIFACT- I, II ABNORMAL ECG Electronically Signed On 08-31-2020 16:30:33 DRUM DRIER OPERATOR by Marlon Joe D.O.
[2020-08-31 16:35] VITALS: BP 143/81; PULSE 60; RESP 19; TEMP 36.4; O2SAT 100
[2020-08-31 16:40] VITALS: PULSE 60; O2SAT 100
[2020-08-31 16:42] LABS: Basophils Percent Auto 0.2 % (0.2-1.2); Eosinophils Percent Auto 0.7 % (0-4.4); Hematocrit 27.4 % (37.0-47.0); Hemoglobin 8.9 g/dL (12.0-15.0); Immature Granulocyte Absolute 0.01 K/mm3 (0.00-0.031); Immature Granulocyte Percent A 0.2 % (0-0.5); Lymphocytes Absolute Auto 0.84 K/mm3 (0.9-3.2); Lymphocytes Percent Auto 20.2 % (18.3-44.2); Mean Corpuscular HGB Conc 32.5 g/dl (32-36); Mean Corpuscular Hemoglobin 32.4 pg (26-34); Mean Corpuscular Volume 99.6 fl (80-100); Mean Platelet Volume 8.9 fl (7.4-10.4); Monocytes Absolute Auto 0.5 K/mm3 (0.1-0.6); Monocytes Percent Auto 11.8 % (2.6-8.5); Neutrophils Absolute Auto 2.8 K/mm3 (1.3-6.7); Neutrophils Percent Auto 66.9 % (45.5-73.1); Platelet Count Result 224 k/mm3 (150-375); Red Blood Count 2.75 M/mm3 (4.2-5.4); Red Cell Distribution Width 13.2 % (11.5-14.5); White Blood Count 4.2 K/mm3 (4.5-10.0)
[2020-08-31 16:51] LABS: Prothrombin Time 13.3 Seconds (11.1-14.7)
[2020-08-31 16:52] LABS: Partial Thromboplastin Time 25.2 SECONDS (22.3-36.8)
[2020-08-31 16:53] LABS: Anion Gap 8 mmol/L (8-16); Blood Urea Nitrogen 22 mg/dL (7-17); Calcium 8.3 mg/dL (8.4-10.2); Carbon Dioxide 31 mmol/L (22-30); Chloride 91 mmol/L (98-107); Estimated CRCL calculation 18 ml/min; Estimated Glomerular Filt Rate 33; Glucose 92 mg/dL (65-105); Potassium 3.8 mmol/L (3.4-5.0); Sodium 130 mmol/L (137-145)
[2020-08-31 17:05] LABS: Troponin I 0.014 ng/mL (0.000-0.034)
[2020-08-31 17:39] VITALS: BP 134/75; PULSE 63; RESP 25; O2SAT 97
--- NOTE | 2020-08-31 17:41 | ED.GENADULT ---
HPI - General Adult General Chief complaint: Chest Pain Stated complaint: chest pain Time Seen by Provider: 08/31/20 16:26 Source: patient History of Present Illness HPI narrative: Patient is a 80 y/o female complaining generalized chest pain and abdominal pain starting this morning. She describes her pain as burning and rates it as 10/10. There is no pain radiation. There is no alleviating or exacerbating factor. She also has some SOB. She had multiple episodes of similar symptoms in the past. Related Data Home Medications Medication Instructions Recorded Confirmed Entresto 1 tablet PO Q12H 09/01/19 07/02/20 alprazolam 0.5 mg PO TID PRN 09/01/19 07/02/20 clopidogrel 75 mg PO DAILY 09/01/19 07/02/20 hydralazine 10 mg PO TID 09/01/19 07/02/20 levothyroxine 125 mcg PO DAILY 09/01/19 07/02/20 metoprolol succinate 50 mg PO DAILY 09/01/19 07/02/20 nitroglycerin 0.4 mg SUBLINGUAL Q5M PRN 09/01/19 07/02/20 trazodone 100 mg PO HS 09/01/19 07/02/20 ferrous sulfate 325 mg PO DAILY 09/06/19 07/02/20 prednisolone acetate 1 % RIGHTEYE DAILY 09/06/19 07/02/20 oxybutynin chloride 10 mg PO DAILY 03/20/20 07/02/20 acyclovir 1,000 mg PO DAILY 05/31/20 07/02/20 sertraline 25 mg PO DAILY 06/16/20 07/02/20 furosemide 20 mg PO DAILY 07/02/20 07/02/20 Allergies Allergy/AdvReac Type Severity Reaction Status Date / Time Penicillins Allergy Unknown Rash Verified 08/27/20 15:38 Review of Systems Constitutional: Constitutional: Denies chills, Denies fever(s), Denies headache(s) and Denies weakness Eyes: Eyes: Denies blurry vision ENT: Denies headache(s) and Denies neck pain Cardiovascular: Cardiovascular: Reports chest pain and Reports dyspnea Respiratory: Respiratory: Denies cough and Reports dyspnea Gastrointestinal: Gastrointestinal: Reports abdominal pain, Denies diarrhea, Denies nausea and Denies vomiting Genitourinary: Genitourinary: Denies hematuria and Denies dysuria Musculoskeletal: Musculoskeletal: Denies back pain and Denies neck pain Neurologic: Denies headache(s) and Denies weakness [facility] Past Medical History Medical History (Updated 08/31/20 @ 20:21 by Elinor Cali MD) Chronic anemia Chronic kidney disease, stage 3 Congestive heart failure Systolic and diastolic congestive heart failure Echo 11/27 showed EF 50%. Echo 01/14/2019: EF measured at 39%. September 2018 EF was 25%. Echo 12/02/2019 EF 50-55%. Grade 1 diastolic function. Coronary artery disease With multivessel surgical revascularization with PCI at [place] October 2017. Cardiac catheterization 10/17/2018-mild preserved intra-stent luminal diameter Current use of manager terminal anticoagulation Depression with anxiety Detached retina Right-sided, x2. Frequent headaches GERD (gastroesophageal reflux disease) With history of esophageal stricture requiring dilatation. History of GI bleed History of rectal polyps Hyperlipidemia Hypertension Hypothyroidism TSH in November 2019 was a bit low, with normal T4. Irritable bowel syndrome Ischemic cardiomyopathy Mitral valve prolapse Myasthenia gravis Questionable history of. Obstructive sleep apnea Ocular herpes zoster History of shingles to the left eye, on chronic antiviral therapy. Paroxysmal atrial fibrillation No longer on long-term anticoagulation due to history of falls. Peripheral neuropathy Rectal polyp Restless leg syndrome Shingles Solitary rectal ulcer syndrome Stage III chronic kidney disease Surgical History Surgical History Status post appendectomy Status post bilateral hip replacements Status post bilateral knee replacements Status post breast biopsy Bilateral with benign histology. Status post carpal tunnel release Status post cataract extraction Bilateral. Status post cholecystectomy Status post laminectomy Lumbar spine. Status post LASIK surgery Status post rotator cuff repair Status post tonsillectomy Family History Family
[2020-08-31] MEDS: LIDOCAINE HCL 2% VISC SOLN 15 ML UDC PO (19:55)
[2020-08-31] MEDS: MAGNESIUM HYDROXIDE SUSP 30 ML UDC PO (19:55)
[2020-08-31 19:56] LABS: Troponin I < 0.012 ng/mL (0.000-0.034)
[2020-08-31 21:00] VITALS: BP 131/67; PULSE 62; RESP 18; O2SAT 97
== END 2020-08-31 21:02 | disposition home or self-care (01) ==
PROVIDERS: Family Medicine; Emergency Provider Emergency Medicine; PCP Family Medicine
DX: R07.9 Chest pain, unspecified (principal); R10.84 Generalized abdominal pain; I13.0 Hypertensive heart and chronic kidney disease with heart failure and stage 1 through stage 4 chronic kidney disease, or unspecified chronic kidney disease; N18.30 Chronic kidney disease, stage 3 unspecified; I50.9 Heart failure, unspecified; D64.9 Anemia, unspecified; I25.10 Atherosclerotic heart disease of native coronary artery without angina pectoris; Z79.01 Long term (current) use of anticoagulants; F32.9 Major depressive disorder, single episode, unspecified; F41.9 Anxiety disorder, unspecified; K21.9 Gastro-esophageal reflux disease without esophagitis; E78.5 Hyperlipidemia, unspecified; E03.9 Hypothyroidism, unspecified; K58.9 Irritable bowel syndrome, unspecified; G47.30 Sleep apnea, unspecified; G25.81 Restless legs syndrome
CPT/HCPCS: 36415; 71046; 80048; 84484; 85025; 85610; 85730; 93005; 99284; A9270

== ENCOUNTER 2020-09-02 21:36 | Emergency (ER) | payer MEDICARE, SELFPAY ==
--- NOTE | ~2020-09-02 | CT_ITS ---
EXAMINATION: CT abdomen pelvis w con DATE: 09/02/2020 23:16 INDICATION: Abdominal pain TECHNIQUE: Computed tomography (CT) of the abdomen and pelvis was performed with 100 mL Omnipaque-350 intravenous contrast. Automated exposure control and iterative reconstruction technique were employe d. The dose-length product was 219.97 mGy-cm. COMPARISON: 05/26/2020 FINDINGS: Lung bases are clear. Cardiomegaly. Atherosclerotic coronary artery calcification. Increasing small t o moderate-sized pericardial effusion. Cholecystectomy clips at the gallbladder fossa. There has been interval increase in degree of intra and extra hepatic biliary ductal dilation with the common bile duct measuring up to 16 mm in maximal diameter. There appears to be some increased intraluminal densi ty at the distalmost aspect of the common bile duct suspicious for an obstructing stone or sludge. Sp lucas, pancreas and bilateral adrenal glands are normal. Mild likely age-related bilateral renal corti ann atrophy along with multiple bilateral low-attenuation renal cysts, the largest measuring up to 12 mm. There is moderate colonic diverticulosis with a sigmoid predominance. There is no adjacent infl ammatory change to suggest diverticulitis. The appendix is not visualized and may be obscured by dens e metallic streak artifact in the pelvis related to bilateral total hip arthroplasties. No pericecal inflammatory change to suggest acute appendicitis. Visualized portion of the bladder is unremarkable. The uterus is not identified and has likely been surgically resected. No free intraperitoneal gas or fluid. There is calcified atherosclerosis of the aorta and many of the other arteries. Multiple ph leboliths along the right ovarian vein and in the pelvis. Mild lumbar levocurvature. Severe lower lum bar spondylosis including 4 mm anterolisthesis L3 on L4. 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 Large left iliac bone island. IMPRESSION: 1. Interval increase in degree of intra and extra hepatic biliary ductal dilation with suggestion of obstructing stone or sludge at the distal common bile duct. Correlate with liver function tests and c onsider further evaluation with MRCP/ERCP as clinically indicated. 2. Cardiomegaly with interval increase in a now small to moderate-sized pericardial effusion. 3. Diverticulosis. 4. Fluid throughout the colon consistent with diarrhea. Reviewed, dictated and finalized at location . MONIUM HYDROXIDE OPERATOR IMPRESSION: 1. Interval increase in degree of intra and extra hepatic biliary ductal dilati on with suggestion of obstructing stone or sludge at the distal common bile desmond t. Correlate with liver function tests and consider further evaluation with MRC P/ERCP as clinically indicated. 2. Cardiomegaly with interval increase in a now small to moderate-sized pericar dial effusion. 3. Diverticulosis. 4. Fluid throughout the colon consistent with diarrhea.
--- NOTE | ~2020-09-02 | XR_ITS ---
XR chest 2V DATE: 09/02/2020 23:23 INDICATION: Midline chest pain TECHNIQUE: AP and lateral views COMPARISON: 08/31/2020 PA and lateral chest FINDINGS: Bilateral hyperinflation, suggesting COPD. The elderly chest considerably this appearance. No pulmonary infiltrate or consolidation, pleural effusion or pulmonary vascular congestion or pneumo thorax. Cardiomegaly. There is coronary artery stenting. There is aortic calcification, ectasia. Bilateral glenohumeral osteoarthritis. Diffuse osteopenia. IMPRESSION: Bilateral hyperinflation, which may be due to COPD; clinical correlation is advised No active pulmonary disease Cardiomegaly, coronary artery stenting, aortic atherosclerosis Reviewed, dictated and finalized at location A. FIELD PIPELINE SUPERVISOR IMPRESSION: Bilateral hyperinflation, which may be due to COPD; clinical correl ation is advised No active pulmonary disease Cardiomegaly, coronary artery stenting, aortic atherosclerosis
[2020-09-02 21:46] VITALS: BP 111/77; PULSE 65; RESP 16; TEMP 36.2; O2SAT 96
--- NOTE | 2020-09-02 21:53 | ECG_ITS ---
Measurements Intervals [place] Rate: 69 P: 72 [place]: 116 QRS: 62 QRSD: 88 T: 50 QT: 414 QTc: 444 Interpretive Statements SINUS RHYTHM WITH SHORT [place] INTERVAL FREQUENT ATRIAL PREMATURE COMPLEXES ANTEROSEPTAL INFARCT, AGE INDETERMINATE BASELINE ARTIFACT- I, III, AVL, V4-V6 ABNORMAL ECG Electronically Signed On 09-03-2020 8:05:55 MONEY ROOM SUPERVISOR by Marlon Joe D.O.
[2020-09-02 22:17] VITALS: BP 127/73; PULSE 57; RESP 13; O2SAT 97
[2020-09-02 22:25] LABS: Basophils Percent Auto 0.5 % (0.2-1.2); Eosinophils Percent Auto 0.3 % (0-4.4); Hematocrit 27.1 % (37.0-47.0); Immature Granulocyte Absolute 0.01 K/mm3 (0.00-0.031); Immature Granulocyte Percent A 0.3 % (0-0.5); Lymphocytes Absolute Auto 1.06 K/mm3 (0.9-3.2); Lymphocytes Percent Auto 27.2 % (18.3-44.2); Mean Corpuscular HGB Conc 33.2 g/dl (32-36); Mean Corpuscular Hemoglobin 32.3 pg (26-34); Mean Corpuscular Volume 97.1 fl (80-100); Monocytes Absolute Auto 0.4 K/mm3 (0.1-0.6); Monocytes Percent Auto 10.5 % (2.6-8.5); Neutrophils Absolute Auto 2.4 K/mm3 (1.3-6.7); Neutrophils Percent Auto 61.2 % (45.5-73.1); Platelet Count Result 209 k/mm3 (150-375); Red Blood Count 2.79 M/mm3 (4.2-5.4); White Blood Count 3.9 K/mm3 (4.5-10.0)
[2020-09-02 22:34] LABS: INR 0.9; Prothrombin Time 12.9 Seconds (11.1-14.7)
[2020-09-02 22:35] LABS: Partial Thromboplastin Time 26.4 SECONDS (22.3-36.8)
[2020-09-02 22:37] LABS: Alanine Aminotransferase 16 U/L (4-35); Albumin Level 3.7 g/dL (3.5-5.1); Alkaline Phosphatase 82 U/L (38-126); Anion Gap 6 mmol/L (8-16); Aspartate Amino Transferase 32 U/L (14-36); Bilirubin,Total 0.2 mg/dL (0.2-1.3); Blood Urea Nitrogen 25 mg/dL (7-17); Calcium 8.4 mg/dL (8.4-10.2); Carbon Dioxide 32 mmol/L (22-30); Chloride 91 mmol/L (98-107); Estimated CRCL calculation 19 ml/min; Estimated Glomerular Filt Rate 36; Glucose 85 mg/dL (65-105); Lipase 189 U/L (23-300); Potassium 4.1 mmol/L (3.4-5.0); Sodium 129 mmol/L (137-145)
[2020-09-02] MEDS: ONDANSETRON INJ 4 MG/2 ML VIAL IV PUSH (22:38)
[2020-09-02] MEDS: ASPIRIN 81 MG CHEWABLE TABLET 324 MG PO (22:38)
[2020-09-02] MEDS: MORPHINE SULFATE (*CRX) 2 MG/ML INJ IV PUSH (22:39)
[2020-09-02 22:48] LABS: Troponin I < 0.012 ng/mL (0.000-0.034)
[2020-09-02 23:29] LABS: Add Urine Microscopic? YES; Appearance Urine Clear (Clear); Bilirubin Urine Negative (Negative); Blood Urine Negative (Negative); Color Urine Straw (Yellow); Glucose Urine UA Negative (Negative); Ketones Urine Negative (Negative); Leukocyte Esterase Ur 3+ LEU/UL (Negative); Nitrate Urine Negative (Negative); Protein Urine Negative (Negative); Specific Grav Ur 1.009 (1.001-1.035); Squamous Epithelial Cell Urine Moderate /hpf (Few); Urobilinogen Urine Negative mg/dL (<2.0); WBC Urine 21-30 /hpf
--- NOTE | 2020-09-03 00:19 | ED.GENADULT ---
HPI - General Adult General Chief complaint: Abdominal Pain Stated complaint: CHEST/ABD PAIN Time Seen by Provider: 09/02/20 22:10 History of Present Illness HPI narrative: Patient is a 80-year-old female presents the emergency department with chief complaint of abdominal and chest pain. Patient states that the pain goes from her epigastric region up into her chest and also into her abdomen. Patient states that she has had reflux before in the past but also is concerned because she does have some cardiac history. Patient denies diaphoresis denies shortness of breath states that her abdomen aches throughout the whole abdomen and states is not improved by anything nor is it worsened by. Related Data Home Medications Medication Instructions Recorded Confirmed Entresto 1 tablet PO Q12H 09/01/19 07/02/20 alprazolam 0.5 mg PO TID PRN 09/01/19 07/02/20 clopidogrel 75 mg PO DAILY 09/01/19 07/02/20 hydralazine 10 mg PO TID 09/01/19 07/02/20 levothyroxine 125 mcg PO DAILY 09/01/19 07/02/20 metoprolol succinate 50 mg PO DAILY 09/01/19 07/02/20 nitroglycerin 0.4 mg SUBLINGUAL Q5M PRN 09/01/19 07/02/20 trazodone 100 mg PO HS 09/01/19 07/02/20 ferrous sulfate 325 mg PO DAILY 09/06/19 07/02/20 prednisolone acetate 1 % RIGHTEYE DAILY 09/06/19 07/02/20 oxybutynin chloride 10 mg PO DAILY 03/20/20 07/02/20 acyclovir 1,000 mg PO DAILY 05/31/20 07/02/20 sertraline 25 mg PO DAILY 06/16/20 07/02/20 furosemide 20 mg PO DAILY 07/02/20 07/02/20 Allergies Allergy/AdvReac Type Severity Reaction Status Date / Time Penicillins Allergy Unknown Rash Verified 08/27/20 15:38 Review of Systems Review of Systems: Narrative: CONSTITUTIONAL: Denies fever, chills, or sweats. EYES: Denies visual changes, redness, or discharge. ENT: Denies rhinorrhea, congestion, sore throat, or otalgia. CARDIOVASCULAR: Denies chest pain, palpitations, or edema. RESPIRATORY: Denies cough or dyspnea. GASTROINTESTINAL: Denies abdominal pain, nausea, vomiting, or diarrhea. GENITOURINARY: Denies dysuria or hematuria. SKIN: Denies rash or itching. MUSCULOSKELETAL: Denies back pain, joint pain, or myalgia. NEUROLOGIC: Denies headache, numbness, or weakness. PSYCHIATRIC: Denies anxiety or depression. A 10 system review of systems was completed on the patient and is negative except for what is stated in the HPI. Nursing and ancillary documentation was reviewed. [facility] Past Medical History Medical History (Updated 09/03/20 @ 00:24 by Scottie Fabian MD) Chronic anemia Chronic kidney disease, stage 3 Congestive heart failure Systolic and diastolic congestive heart failure Echo 11/27 showed EF 50%. Echo 01/14/2019: EF measured at 39%. September 2018 EF was 25%. Echo 12/02/2019 EF 50-55%. Grade 1 diastolic function. Coronary artery disease With multivessel surgical revascularization with PCI at [place] October 2017. Cardiac catheterization 10/17/2018-mild preserved intra-stent luminal diameter Current use of chcf anticoagulation Depression with anxiety Detached retina Right-sided, x2. Frequent headaches GERD (gastroesophageal reflux disease) With history of esophageal stricture requiring dilatation. History of GI bleed History of rectal polyps Hyperlipidemia Hypertension Hypothyroidism TSH in November 2019 was a bit low, with normal T4. Irritable bowel syndrome Ischemic cardiomyopathy Mitral valve prolapse Myasthenia gravis Questionable history of. Obstructive sleep apnea Ocular herpes zoster History of shingles to the left eye, on chronic antiviral therapy. Paroxysmal atrial fibrillation No longer on long-term anticoagulation due to history of falls. Peripheral neuropathy Rectal polyp Restless leg syndrome Shingles Solitary rectal ulcer syndrome Stage III chronic kidney disease Surgical History Surgical History Status post appendectomy Status post bilateral hip replacements Status post
== END 2020-09-03 00:45 | disposition home or self-care (01) ==
PROVIDERS: Emergency Provider Emergency Medicine; PCP Family Medicine
DX: N39.0 Urinary tract infection, site not specified (principal); R10.84 Generalized abdominal pain; I13.0 Hypertensive heart and chronic kidney disease with heart failure and stage 1 through stage 4 chronic kidney disease, or unspecified chronic kidney disease; N18.30 Chronic kidney disease, stage 3 unspecified; I50.9 Heart failure, unspecified; I25.10 Atherosclerotic heart disease of native coronary artery without angina pectoris; Z79.01 Long term (current) use of anticoagulants; F32.9 Major depressive disorder, single episode, unspecified; F41.9 Anxiety disorder, unspecified; K21.9 Gastro-esophageal reflux disease without esophagitis; E78.5 Hyperlipidemia, unspecified; E03.9 Hypothyroidism, unspecified; K58.9 Irritable bowel syndrome, unspecified; G25.81 Restless legs syndrome; D63.1 Anemia in chronic kidney disease; G47.33 Obstructive sleep apnea (adult) (pediatric); I48.0 Paroxysmal atrial fibrillation; Z87.19 Personal history of other diseases of the digestive system; Z98.42 Cataract extraction status, left eye; Z98.41 Cataract extraction status, right eye; Z96.653 Presence of artificial knee joint, bilateral; Z96.643 Presence of artificial hip joint, bilateral
CPT/HCPCS: 36415; 71046; 74177; 80053; 81001; 83690; 84484; 85025; 85610; 85730; 87077; 87086; 87088; 87186; 93005; 96374; 96375; 99284; A9270; J2270; J2405; Q9967

== ENCOUNTER 2020-09-04 14:27 | Emergency (ER) | payer MEDICARE, SELFPAY ==
[2020-09-04 14:30] VITALS: BP 114/52; PULSE 67; RESP 18; TEMP 36.1; O2SAT 99
--- NOTE | 2020-09-04 14:35 | ECG_ITS ---
Measurements Intervals [place] Rate: 71 P: [place]: 0 QRS: -67 QRSD: 85 T: 138 QT: 429 QTc: 466 Interpretive Statements SINUS OR ECTOPIC ATRIAL RHYTHM WITH SHORT [place] INTERVAL FREQUENT ATRIAL PREMATURE COMPLEXES LEFT AXIS DEVIATION ANTEROSEPTAL INFARCT, AGE INDETERMINATE BORDERLINE T WAVE ABNORMALITY- INF/HIGH LAT LEADS BASELINE ARTIFACT- I, II, III, AVR, AVL, AVF, V5-V6 ABNORMAL ECG Electronically Signed On 09-04-2020 16:30:54 TITLE I INSTRUCTIONAL ASSISTANT by Marlon Joe D.O.
[2020-09-04 15:15] LABS: Basophils Percent Auto 0.5 % (0.2-1.2); Eosinophils Percent Auto 0.5 % (0-4.4); Hematocrit 26.1 % (37.0-47.0); Hemoglobin 8.7 g/dL (12.0-15.0); Immature Granulocyte Absolute 0.01 K/mm3 (0.00-0.031); Immature Granulocyte Percent A 0.3 % (0-0.5); Lymphocytes Absolute Auto 0.75 K/mm3 (0.9-3.2); Lymphocytes Percent Auto 18.8 % (18.3-44.2); Mean Corpuscular HGB Conc 33.3 g/dl (32-36); Mean Corpuscular Hemoglobin 32.6 pg (26-34); Mean Corpuscular Volume 97.8 fl (80-100); Monocytes Absolute Auto 0.4 K/mm3 (0.1-0.6); Monocytes Percent Auto 9.3 % (2.6-8.5); Neutrophils Absolute Auto 2.8 K/mm3 (1.3-6.7); Neutrophils Percent Auto 70.6 % (45.5-73.1); Platelet Count Result 217 k/mm3 (150-375); Red Blood Count 2.67 M/mm3 (4.2-5.4)
[2020-09-04 15:37] LABS: Alanine Aminotransferase 16 U/L (4-35); Albumin Level 3.3 g/dL (3.5-5.1); Alkaline Phosphatase 66 U/L (38-126); Anion Gap 6 mmol/L (8-16); Aspartate Amino Transferase 31 U/L (14-36); Bilirubin,Total 0.2 mg/dL (0.2-1.3); Blood Urea Nitrogen 23 mg/dL (7-17); Calcium 8.2 mg/dL (8.4-10.2); Carbon Dioxide 33 mmol/L (22-30); Chloride 92 mmol/L (98-107); Estimated CRCL calculation 16 ml/min; Estimated Glomerular Filt Rate 29; Glucose 107 mg/dL (65-105); Sodium 131 mmol/L (137-145)
[2020-09-04] MEDS: MAG HYDROX/AL HYDROX/SIMETH 30 ML UDC PO (15:47)
[2020-09-04] MEDS: PANTOPRAZOLE SODIUM IV 40 MG VIAL IV PUSH (15:47)
[2020-09-04] MEDS: SODIUM CHLORIDE 0.9% IV 1,000 ML 999 ML IV CONT (15:48)
[2020-09-04 15:50] LABS: Lipase 124 U/L (23-300)
[2020-09-04] MEDS: LORazepam INJ (*CRX) 2 MG/ML VIAL 1 MG IV PUSH (15:56)
[2020-09-04] MEDS: HYOSCYAMINE SULFATE 0.125 MG TABLET PO (15:56)
--- NOTE | 2020-09-04 16:35 | ED.GENADULT ---
HPI - General Adult General Chief complaint: Abdominal Pain Stated complaint: abd pain Time Seen by Provider: 09/04/20 14:35 Source: patient and old records reviewed Mode of arrival: ambulatory Limitations: no limitations History of Present Illness HPI narrative: Patient is 80-year-old female who returns to emergency department with continued pain from the mouth down into the lower abdomen patient with history of chronic chest and abdominal pain numerous similar occurrences was in the hospital for evaluation in the last 2 days sent home had recurrence patient denies vomiting diarrhea URI symptoms and on arrival appears to be in no distress slightly uncomfortable Related Data Home Medications Medication Instructions Recorded Confirmed Entresto 1 tablet PO Q12H 09/01/19 07/02/20 alprazolam 0.5 mg PO TID PRN 09/01/19 07/02/20 clopidogrel 75 mg PO DAILY 09/01/19 07/02/20 hydralazine 10 mg PO TID 09/01/19 07/02/20 levothyroxine 125 mcg PO DAILY 09/01/19 07/02/20 metoprolol succinate 50 mg PO DAILY 09/01/19 07/02/20 nitroglycerin 0.4 mg SUBLINGUAL Q5M PRN 09/01/19 07/02/20 trazodone 100 mg PO HS 09/01/19 07/02/20 ferrous sulfate 325 mg PO DAILY 09/06/19 07/02/20 prednisolone acetate 1 % RIGHTEYE DAILY 09/06/19 07/02/20 oxybutynin chloride 10 mg PO DAILY 03/20/20 07/02/20 acyclovir 1,000 mg PO DAILY 05/31/20 07/02/20 sertraline 25 mg PO DAILY 06/16/20 07/02/20 furosemide 20 mg PO DAILY 07/02/20 07/02/20 Allergies Allergy/AdvReac Type Severity Reaction Status Date / Time Penicillins Allergy Unknown Rash Verified 09/04/20 14:33 Review of Systems Review of Systems: All systems reviewed & are unremarkable except as noted in HPI and below PMFSH Past Medical History Medical History (Updated 09/04/20 @ 17:00 by Everardo John PA-C) Chronic anemia Chronic kidney disease, stage 3 Congestive heart failure Systolic and diastolic congestive heart failure Echo 11/27 showed EF 50%. Echo 01/14/2019: EF measured at 39%. September 2018 EF was 25%. Echo 12/02/2019 EF 50-55%. Grade 1 diastolic function. Coronary artery disease With multivessel surgical revascularization with PCI at [place] October 2017. Cardiac catheterization 10/17/2018-mild preserved intra-stent luminal diameter Current use of intermediate card tender anticoagulation Depression with anxiety Detached retina Right-sided, x2. Frequent headaches GERD (gastroesophageal reflux disease) With history of esophageal stricture requiring dilatation. History of GI bleed History of rectal polyps Hyperlipidemia Hypertension Hypothyroidism TSH in November 2019 was a bit low, with normal T4. Irritable bowel syndrome Ischemic cardiomyopathy Mitral valve prolapse Myasthenia gravis Questionable history of. Obstructive sleep apnea Ocular herpes zoster History of shingles to the left eye, on chronic antiviral therapy. Paroxysmal atrial fibrillation No longer on long-term anticoagulation due to history of falls. Peripheral neuropathy Rectal polyp Restless leg syndrome Shingles Solitary rectal ulcer syndrome Stage III chronic kidney disease Surgical History Surgical History Status post appendectomy Status post bilateral hip replacements Status post bilateral knee replacements Status post breast biopsy Bilateral with benign histology. Status post carpal tunnel release Status post cataract extraction Bilateral. Status post cholecystectomy Status post laminectomy Lumbar spine. Status post LASIK surgery Status post rotator cuff repair Status post tonsillectomy Family History Family History Mother Cerebrovascular accident Diabetes mellitus Hypertension Sibling Cerebrovascular accident Other Acute myocardial infarction Social History Social History Social History: The patient lives with her in
[2020-09-04 17:10] VITALS: BP 130/72; PULSE 75; RESP 17; O2SAT 99
== END 2020-09-04 17:11 | disposition home or self-care (01) ==
PROVIDERS: Emergency Medicine Emergency Medical Services; Emergency Provider Emergency Medicine; PCP Family Medicine
DX: R10.84 Generalized abdominal pain (principal); G89.29 Other chronic pain; I13.0 Hypertensive heart and chronic kidney disease with heart failure and stage 1 through stage 4 chronic kidney disease, or unspecified chronic kidney disease; N18.30 Chronic kidney disease, stage 3 unspecified; I50.40 Unspecified combined systolic (congestive) and diastolic (congestive) heart failure; I25.10 Atherosclerotic heart disease of native coronary artery without angina pectoris; F41.8 Other specified anxiety disorders; K21.9 Gastro-esophageal reflux disease without esophagitis; Z87.19 Personal history of other diseases of the digestive system; E78.5 Hyperlipidemia, unspecified; K58.9 Irritable bowel syndrome, unspecified; E03.9 Hypothyroidism, unspecified; I34.1 Nonrheumatic mitral (valve) prolapse; I25.5 Ischemic cardiomyopathy; G47.33 Obstructive sleep apnea (adult) (pediatric); G62.9 Polyneuropathy, unspecified; G25.81 Restless legs syndrome; Z96.643 Presence of artificial hip joint, bilateral; Z96.653 Presence of artificial knee joint, bilateral; Z98.42 Cataract extraction status, left eye; Z98.41 Cataract extraction status, right eye; I49.1 Atrial premature depolarization; R94.31 Abnormal electrocardiogram [ECG] [EKG]
CPT/HCPCS: 36415; 80053; 83690; 85025; 93005; 96361; 96374; 96375; 99284; A9270; C9113; J2060; J7030

== ENCOUNTER 2020-09-19 20:09 | Emergency (ER) | payer MEDICARE, SELFPAY ==
[2020-09-19 20:15] VITALS: BP 153/76; PULSE 76; RESP 16; TEMP 36.8; O2SAT 99
--- NOTE | 2020-09-19 20:30 | ECG_ITS ---
Measurements Intervals [place] Rate: 71 P: 80 [place]: 156 QRS: -29 QRSD: 98 T: 44 QT: 415 QTc: 451 Interpretive Statements SINUS RHYTHM FREQUENT ATRIAL PREMATURE COMPLEXES ANTEROSEPTAL INFARCT, AGE INDETERMINATE BORDERLINE ST-T WAVE ABNORMALITY- INFERIOR LEADS BASELINE ARTIFACT- I, II, III, AVR, AVL, AVF, V5-V6 ABNORMAL ECG Electronically Signed On 09-20-2020 6:58:21 LATIN PROFESSOR by Marlon Joe D.O.
[2020-09-19] MEDS: BELLADONNA ALK/PHENOB ELIX 10 ML, MAG HYDROX/ALUMINUM HYD/SIMETH 30 ML, LIDOCAINE HCL 2... PO (20:47)
[2020-09-19 21:07] LABS: Basophils Percent Auto 0.3 % (0.2-1.2); Eosinophils Percent Auto 0.8 % (0-4.4); Hematocrit 29.9 % (37.0-47.0); Hemoglobin 9.6 g/dL (12.0-15.0); Immature Granulocyte Absolute 0.02 K/mm3 (0.00-0.031); Immature Granulocyte Percent A 0.5 % (0-0.5); Lymphocytes Absolute Auto 0.83 K/mm3 (0.9-3.2); Lymphocytes Percent Auto 21.3 % (18.3-44.2); Mean Corpuscular HGB Conc 32.1 g/dl (32-36); Mean Corpuscular Hemoglobin 32.2 pg (26-34); Mean Corpuscular Volume 100.3 fl (80-100); Mean Platelet Volume 9.6 fl (7.4-10.4); Monocytes Absolute Auto 0.4 K/mm3 (0.1-0.6); Neutrophils Absolute Auto 2.6 K/mm3 (1.3-6.7); Neutrophils Percent Auto 67.1 % (45.5-73.1); Platelet Count Result 245 k/mm3 (150-375); Red Blood Count 2.98 M/mm3 (4.2-5.4); Red Cell Distribution Width 12.7 % (11.5-14.5); White Blood Count 3.9 K/mm3 (4.5-10.0)
[2020-09-19 21:18] LABS: Alanine Aminotransferase 21 U/L (4-35); Albumin Level 4.4 g/dL (3.5-5.1); Alkaline Phosphatase 94 U/L (38-126); Anion Gap 7 mmol/L (8-16); Aspartate Amino Transferase 45 U/L (14-36); Bilirubin,Total 0.3 mg/dL (0.2-1.3); Blood Urea Nitrogen 37 mg/dL (7-17); Calcium 9.2 mg/dL (8.4-10.2); Carbon Dioxide 34 mmol/L (22-30); Chloride 91 mmol/L (98-107); Estimated CRCL calculation 16 ml/min; Estimated Glomerular Filt Rate 29; Glucose 86 mg/dL (65-105); Lipase 252 U/L (23-300); Potassium 3.8 mmol/L (3.4-5.0); Sodium 132 mmol/L (137-145)
--- NOTE | 2020-09-19 21:31 | ED.GENADULT ---
HPI - General Adult General Chief complaint: Chest Pain Stated complaint: Chest pain, stomach pain Time Seen by Provider: 09/19/20 20:28 History of Present Illness HPI narrative: Patient is an 80-year-old female who presents ER with report of chest pain. She describes chest pain as discomfort starting her abdomen rating up into the back of her throat. Is burning and causes bad taste. No exertional chest pain or dyspnea. No nausea/vomiting/diarrhea. Has had similar symptoms before that resolved with GI cocktail. Related Data Home Medications Medication Instructions Recorded Confirmed Entresto 1 tablet PO Q12H 09/01/19 07/02/20 alprazolam 0.5 mg PO TID PRN 09/01/19 07/02/20 clopidogrel 75 mg PO DAILY 09/01/19 07/02/20 hydralazine 10 mg PO TID 09/01/19 07/02/20 levothyroxine 125 mcg PO DAILY 09/01/19 07/02/20 metoprolol succinate 50 mg PO DAILY 09/01/19 07/02/20 nitroglycerin 0.4 mg SUBLINGUAL Q5M PRN 09/01/19 07/02/20 trazodone 100 mg PO HS 09/01/19 07/02/20 ferrous sulfate 325 mg PO DAILY 09/06/19 07/02/20 prednisolone acetate 1 % RIGHTEYE DAILY 09/06/19 07/02/20 oxybutynin chloride 10 mg PO DAILY 03/20/20 07/02/20 acyclovir 1,000 mg PO DAILY 05/31/20 07/02/20 sertraline 25 mg PO DAILY 06/16/20 07/02/20 furosemide 20 mg PO DAILY 07/02/20 07/02/20 Allergies Allergy/AdvReac Type Severity Reaction Status Date / Time Penicillins Allergy Unknown Rash Verified 09/19/20 20:20 Review of Systems Review of Systems: All systems reviewed & are unremarkable except as noted in HPI and below Constitutional: Constitutional: Denies chills, Denies fever(s) and Denies weakness ENT: Denies nasal congestion and Denies sore throat Cardiovascular: Cardiovascular: Reports chest pain, Denies rapid heart rate and Denies radiating jaw, neck or arm pain Respiratory: Respiratory: Denies cough, Denies dyspnea and Denies wheezing Gastrointestinal: Gastrointestinal: Reports abdominal pain, Denies diarrhea, Denies nausea and Denies vomiting Musculoskeletal: Musculoskeletal: Denies back pain and Denies muscle cramps [facility] Past Medical History Medical History (Updated 09/19/20 @ 22:39 by Pablito De Souza MD) Chronic anemia Chronic kidney disease, stage 3 Congestive heart failure Systolic and diastolic congestive heart failure Echo 11/27 showed EF 50%. Echo 01/14/2019: EF measured at 39%. September 2018 EF was 25%. Echo 12/02/2019 EF 50-55%. Grade 1 diastolic function. Coronary artery disease With multivessel surgical revascularization with PCI at [place] October 2017. 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 Frequent headaches GERD (gastroesophageal reflux disease) With history of esophageal stricture requiring dilatation. History of GI bleed History of rectal polyps Hyperlipidemia Hypertension Hypothyroidism TSH in November 2019 was a bit low, with normal T4. Irritable bowel syndrome Ischemic cardiomyopathy Mitral valve prolapse Myasthenia gravis Questionable history of. Obstructive sleep apnea Ocular herpes zoster History of shingles to the left eye, on chronic antiviral therapy. Paroxysmal atrial fibrillation No longer on long-term anticoagulation due to history of falls. Peripheral neuropathy Rectal polyp Restless leg syndrome Shingles Solitary rectal ulcer syndrome Stage III chronic kidney disease Surgical History Surgical History Status post appendectomy Status post bilateral hip replacements Status post bilateral knee replacements Status post breast biopsy Bilateral with benign histology. Status post carpal tunnel release Status post cataract extraction Bilateral. Status post cholecystectomy Status post laminectomy Lumbar spine. Status post LASIK surgery Status post rotator cuff repair Status post tonsillectomy F
[2020-09-19] MEDS: ACETAMINOPHEN 500 MG TABLET 1000 MG PO (21:53)
[2020-09-19 22:46] VITALS: BP 151/90; PULSE 78; RESP 20; O2SAT 97
== END 2020-09-19 22:49 | disposition home or self-care (01) ==
PROVIDERS: Emergency Provider Emergency Medicine; PCP Family Medicine
DX: K21.9 Gastro-esophageal reflux disease without esophagitis (principal); I49.1 Atrial premature depolarization; R94.31 Abnormal electrocardiogram [ECG] [EKG]; I13.0 Hypertensive heart and chronic kidney disease with heart failure and stage 1 through stage 4 chronic kidney disease, or unspecified chronic kidney disease; N18.30 Chronic kidney disease, stage 3 unspecified; I50.40 Unspecified combined systolic (congestive) and diastolic (congestive) heart failure; I25.10 Atherosclerotic heart disease of native coronary artery without angina pectoris; F41.8 Other specified anxiety disorders; Z87.19 Personal history of other diseases of the digestive system; E78.5 Hyperlipidemia, unspecified; K58.9 Irritable bowel syndrome, unspecified; E03.9 Hypothyroidism, unspecified; I34.1 Nonrheumatic mitral (valve) prolapse; I25.5 Ischemic cardiomyopathy; G47.33 Obstructive sleep apnea (adult) (pediatric); G62.9 Polyneuropathy, unspecified; G25.81 Restless legs syndrome; Z96.643 Presence of artificial hip joint, bilateral; Z96.653 Presence of artificial knee joint, bilateral; Z98.42 Cataract extraction status, left eye; Z98.41 Cataract extraction status, right eye
CPT/HCPCS: 36415; 80053; 83690; 85025; 93005; 99283; A9270

== ENCOUNTER 2020-09-22 21:09 | Emergency (ER) | payer MEDICARE, SELFPAY ==
--- NOTE | ~2020-09-22 | CT_ITS ---
EXAMINATION: CT lumbar spine kal hagen EXAM DATE: 09/22/2020 22:46 INDICATION: Fall, low back pain. TECHNIQUE: Spiral CT lumbar spine was performed without contrast. Axial, coronal and sagittal images of the lumbar spine were reviewed. The dose-length product (DLP) for this examination was 393.64 mGy- cm. The exposure was tailored according to patient size (auto mA exposure control), and iterative re construction (ASIR) was used as additional dose reduction technique. Comparison is made to prior exam ination from 06/21/2020. FINDINGS: There is no evidence of acute lumbar fracture. There is no disc space widening or traumat ic vertebral body subluxation suspected. Paraspinal soft tissue is unremarkable. Vertebral body heig hts are maintained. 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 There is mild to moderate lumbar levoscoliosis. Moderate to severe disc disease L4-S1, moderate disc disease at L3-4. There is 5 mm anterolisthesis L3 on L4, 2 mm retr olisthesis L4 on L5, 3 mm anterolisthesis L2 on L3. No spondylolysis. There is severe lumbar facet arthropathy at L3-4, moderate to severe at the lumbar levels below this. The spinal canal is most narrowed at the L3-4 level where there is a large disc bulge and moderate t o severe central canal stenosis. Most narrowed neural foramina is the left L5-S1 foramina but has mod erate to severe stenosis. A detailed level by level evaluation of spondylosis can be added as addend um if requested. Extensive sigmoid colonic diverticulosis. IMPRESSION: 1. No acute lumbar findings. 2. Moderate to severe lumbar spondylosis. 3. Mild to moderate levoscoliosis. Reviewed, dictated and finalized at location G. RAW SUGAR BOILER
--- NOTE | ~2020-09-22 | XR_ITS ---
EXAMINATION: XR chest 1V portable EXAM DATE: 09/22/2020 21:39 INDICATION: Left-sided chest pain radiating toward the right. Recent fall. TECHNIQUE: Portable AP frontal chest x-ray was obtained. Comparison is made to prior examination from 09/02/2020. FINDINGS: Severe chronic hyperinflation. Mild cardiomegaly. Circumflex and left anterior descending c oronary artery stents. No confluent consolidation, pneumothorax or pleural effusion suspected. The ilia shree are osteopenic. There are bony degenerative changes. IMPRESSION: 1. No acute cardiopulmonary findings. 2. Hyperinflation. Reviewed, dictated and finalized at location G. E PLANNER
[2020-09-22 21:20] VITALS: BP 132/98; PULSE 76; RESP 21; TEMP 36.6; O2SAT 97
--- NOTE | 2020-09-22 21:22 | ECG_ITS ---
Measurements Intervals [place] Rate: 90 P: 67 CO: 149 QRS: -56 QRSD: 93 T: 27 QT: 375 QTc: 459 Interpretive Statements SINUS RHYTHM ATRIAL COUPLET AND FREQUENT ATRIAL PREMATURE COMPLEXES LEFT AXIS DEVIATION ANTEROSEPTAL INFARCT, AGE INDETERMINATE BORDERLINE ST-T WAVE ABNORMALITY- INFERIOR LEADS BASELINE ARTIFACT- I, II, AVR, AVF, V4-V6 ABNORMAL ECG Electronically Signed On 09-23-2020 6:16:48 DIRECTOR OF SEARCH ENGINE MARKETING by Marlon Joe D.O.
--- NOTE | 2020-09-22 21:31 | ED.CHESTPAIN ---
HPI - Chest Pain General Chief Complaint: Chest Pain <ZACKARY Kidd Last Filed: 09/22/20 23:06> Stated Complaint: CHEST PAIN <ZACKARY Kidd Last Filed: 09/22/20 23:06> Time Seen by Provider: 09/22/20 21:11 <ZACKARY Kidd Last Filed: 09/22/20 23:06> Source: patient and old records reviewed <ZACKARY Kidd Last Filed: 09/22/20 23:06> Mode of arrival: ambulatory <ZACKARY Kidd Last Filed: 09/22/20 23:06> Limitations: no limitations <ZACKARY Kidd Last Filed: 09/22/20 23:06> History of Present Illness HPI narrative: Patient is an 80-year-old female who presents to emergency department for evaluation of pain from the throat down to the pelvis which is consistent with her chronic pain has frequented the ER with this pain is followed by primary care and inoculator for this and GI. Patient notes 2 days ago she lost her balance and fell injuring the low back did not strike her head or lose consciousness. Tonight patient had increasing pain consistent with her chronic pain denies URI symptoms fever chills nausea vomiting diarrhea melena or rectal bleeding <ZACKARY Kidd Last Filed: 09/22/20 23:06> Related Data Home Medications: Home Medications Medication Instructions Recorded Confirmed Entresto 1 tablet PO Q12H 09/01/19 07/02/20 alprazolam 0.5 mg PO TID PRN 09/01/19 07/02/20 clopidogrel 75 mg PO DAILY 09/01/19 07/02/20 hydralazine 10 mg PO TID 09/01/19 07/02/20 levothyroxine 125 mcg PO DAILY 09/01/19 07/02/20 metoprolol succinate 50 mg PO DAILY 09/01/19 07/02/20 nitroglycerin 0.4 mg SUBLINGUAL Q5M PRN 09/01/19 07/02/20 trazodone 100 mg PO HS 09/01/19 07/02/20 ferrous sulfate 325 mg PO DAILY 09/06/19 07/02/20 prednisolone acetate 1 % RIGHTEYE DAILY 09/06/19 07/02/20 oxybutynin chloride 10 mg PO DAILY 03/20/20 07/02/20 acyclovir 1,000 mg PO DAILY 05/31/20 07/02/20 sertraline 25 mg PO DAILY 06/16/20 07/02/20 furosemide 20 mg PO DAILY 07/02/20 07/02/20 <Everardo John PA-C - Last Filed: 09/22/20 23:06> Allergies/Adverse Reactions: Allergies Allergy/AdvReac Type Severity Reaction Status Date / Time Penicillins Allergy Unknown Rash Verified 09/19/20 20:20 <Everardo John PA-C - Last Filed: 09/22/20 23:06> Review of Systems Review of Systems: All systems reviewed & are unremarkable except as noted in HPI and below <Everardo John PA-C - Last Filed: 09/22/20 23:06> [facility] Past Medical History Medical History: Medical History (Updated 09/22/20 @ 23:06 by Everardo John PA-C) Chronic anemia Chronic kidney disease, stage 3 Congestive heart failure Systolic and diastolic congestive heart failure Echo 11/27 showed EF 50%. Echo 01/14/2019: EF measured at 39%. September 2018 EF was 25%. Echo 12/02/2019 EF 50-55%. Grade 1 diastolic function. Coronary artery disease With multivessel surgical revascularization with PCI at [place] October 2017. 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 Frequent headaches GERD (gastroesophageal reflux disease) With history of esophageal stricture requiring dilatation. History of GI bleed History of rectal polyps Hyperlipidemia Hypertension Hypothyroidism TSH in November 2019 was a bit low, with normal T4. Irritable bowel syndrome Ischemic cardiomyopathy Mitral valve prolapse Myasthenia gravis Questionable history of. Obstructive sleep apnea Ocular herpes zoster History of shingles to the left eye, on chronic antiviral therapy. Paroxysmal atrial fibrillation No longer on long-term anticoagulation due to history of falls. Peripheral neuropathy Rectal polyp Restless leg syndrome Shingles Solitary rectal ulcer syndrome Stage III chronic kidney disease <Everardo John PA-C - Last Filed: 09/22/20 23:06> Surg
[2020-09-22 21:43] LABS: Basophils Percent Auto 0.4 % (0.2-1.2); Eosinophils Percent Auto 0.6 % (0-4.4); Hematocrit 31.3 % (37.0-47.0); Hemoglobin 10.3 g/dL (12.0-15.0); Immature Granulocyte Absolute 0.02 K/mm3 (0.00-0.031); Immature Granulocyte Percent A 0.4 % (0-0.5); Lymphocytes Percent Auto 20.2 % (18.3-44.2); Mean Corpuscular HGB Conc 32.9 g/dl (32-36); Mean Corpuscular Hemoglobin 32.4 pg (26-34); Mean Corpuscular Volume 98.4 fl (80-100); Mean Platelet Volume 9.5 fl (7.4-10.4); Monocytes Absolute Auto 0.5 K/mm3 (0.1-0.6); Monocytes Percent Auto 9.1 % (2.6-8.5); Neutrophils Absolute Auto 3.4 K/mm3 (1.3-6.7); Neutrophils Percent Auto 69.3 % (45.5-73.1); Platelet Count Result 252 k/mm3 (150-375); Red Blood Count 3.18 M/mm3 (4.2-5.4); Red Cell Distribution Width 12.4 % (11.5-14.5)
[2020-09-22] MEDS: FAMOTIDINE 20 MG/2 ML VIAL IV PUSH (21:45)
[2020-09-22] MEDS: SODIUM CHLORIDE 0.9% IV 1,000 ML 999 ML IV CONT (21:45)
[2020-09-22 21:47] LABS: INR 0.9; Prothrombin Time 12.7 Seconds (11.1-14.7)
[2020-09-22 21:48] LABS: Partial Thromboplastin Time 29.9 SECONDS (22.3-36.8)
[2020-09-22] MEDS: LORazepam INJ (*CRX) 2 MG/ML VIAL 1 MG IV PUSH (21:49)
[2020-09-22 21:50] LABS: Alanine Aminotransferase 22 U/L (4-35); Albumin Level 4.1 g/dL (3.5-5.1); Alkaline Phosphatase 88 U/L (38-126); Anion Gap 7 mmol/L (8-16); Aspartate Amino Transferase 45 U/L (14-36); Bilirubin,Total 0.4 mg/dL (0.2-1.3); Blood Urea Nitrogen 31 mg/dL (7-17); Calcium 8.8 mg/dL (8.4-10.2); Carbon Dioxide 34 mmol/L (22-30); Chloride 91 mmol/L (98-107); Estimated Glomerular Filt Rate 25; Glucose 90 mg/dL (65-105); Lipase 200 U/L (23-300); Potassium 3.5 mmol/L (3.4-5.0); Sodium 132 mmol/L (137-145)
[2020-09-22 22:00] LABS: Troponin I < 0.012 ng/mL (0.000-0.034)
[2020-09-22 22:32] VITALS: BP 134/84; PULSE 82; RESP 13; O2SAT 97
[2020-09-22 23:01] VITALS: BP 147/76; PULSE 71; RESP 16; O2SAT 97
== END 2020-09-22 23:25 | disposition home or self-care (01) ==
PROVIDERS: Emergency Medicine Emergency Medical Services; Emergency Provider Emergency Medicine; PCP Family Medicine
DX: R07.9 Chest pain, unspecified (principal); M54.5 Low back pain; M47.816 Spondylosis without myelopathy or radiculopathy, lumbar region; I13.0 Hypertensive heart and chronic kidney disease with heart failure and stage 1 through stage 4 chronic kidney disease, or unspecified chronic kidney disease; N18.30 Chronic kidney disease, stage 3 unspecified; I50.40 Unspecified combined systolic (congestive) and diastolic (congestive) heart failure; I25.10 Atherosclerotic heart disease of native coronary artery without angina pectoris; Z79.01 Long term (current) use of anticoagulants; F41.9 Anxiety disorder, unspecified; F32.9 Major depressive disorder, single episode, unspecified; K21.9 Gastro-esophageal reflux disease without esophagitis; E78.5 Hyperlipidemia, unspecified; E03.9 Hypothyroidism, unspecified; G25.81 Restless legs syndrome; G47.30 Sleep apnea, unspecified
CPT/HCPCS: 36415; 71045; 72131; 80053; 83690; 84484; 85025; 85610; 85730; 93005; 96361; 96374; 96375; 99284; J0131; J2060; J7030

== ENCOUNTER 2020-09-23 20:48 | Emergency (ER) | payer MEDICARE, SELFPAY ==
[2020-09-23 20:52] VITALS: BP 158/107; PULSE 76; RESP 20; TEMP 36.2; O2SAT 95
--- NOTE | 2020-09-23 21:00 | ECG_ITS ---
Measurements Intervals [place] Rate: 80 P: 97 [place]: 157 QRS: -63 QRSD: 94 T: 55 QT: 400 QTc: 462 Interpretive Statements SINUS RHYTHM ATRIAL COUPLET AND ATRIAL PREMATURE COMPLEXES LEFT AXIS DEVIATION ANTEROSEPTAL INFARCT, AGE INDETERMINATE BORDERLINE ST-T WAVE ABNORMALITY- HIGH LATERAL LEADS ABNORMAL ECG Electronically Signed On 09-27-2020 15:15:25 SCHOOL DIRECTOR by Marlon Joe D.O.
[2020-09-23 21:08] VITALS: BP 155/66; PULSE 81; RESP 18; O2SAT 100
--- NOTE | 2020-09-23 21:14 | ED.CHESTPAIN ---
HPI - Chest Pain General Chief Complaint: Chest Pain Stated Complaint: cp, acid reflux Time Seen by Provider: 09/23/20 21:02 Source: patient and family Mode of arrival: ambulatory Limitations: no limitations History of Present Illness HPI narrative: Patient is 80 years old white female came to the emergency room with her complaining of chest pain, abdominal pain started 3 hours prior to arrival to the emergency room. Patient is known to us with frequent ED visits for the same complaint, today is the third ER visit over the last 6 days. Patient denies any fever, chills, nausea, vomiting, exposure to anybody known having COVID-19. Related Data Home Medications Medication Instructions Recorded Confirmed Entresto 1 tablet PO Q12H 09/01/19 07/02/20 alprazolam 0.5 mg PO TID PRN 09/01/19 07/02/20 clopidogrel 75 mg PO DAILY 09/01/19 07/02/20 hydralazine 10 mg PO TID 09/01/19 07/02/20 levothyroxine 125 mcg PO DAILY 09/01/19 07/02/20 metoprolol succinate 50 mg PO DAILY 09/01/19 07/02/20 nitroglycerin 0.4 mg SUBLINGUAL Q5M PRN 09/01/19 07/02/20 trazodone 100 mg PO HS 09/01/19 07/02/20 ferrous sulfate 325 mg PO DAILY 09/06/19 07/02/20 prednisolone acetate 1 % RIGHTEYE DAILY 09/06/19 07/02/20 oxybutynin chloride 10 mg PO DAILY 03/20/20 07/02/20 acyclovir 1,000 mg PO DAILY 05/31/20 07/02/20 sertraline 25 mg PO DAILY 06/16/20 07/02/20 furosemide 20 mg PO DAILY 07/02/20 07/02/20 Allergies Allergy/AdvReac Type Severity Reaction Status Date / Time Penicillins Allergy Unknown Rash Verified 09/19/20 20:20 Review of Systems Review of Systems: Narrative: CONSTITUTIONAL: Denies fever, chills, or sweats. EYES: Denies visual changes, redness, or discharge. ENT: Denies rhinorrhea, congestion, sore throat, or otalgia. CARDIOVASCULAR: Chest pain RESPIRATORY: Denies cough or dyspnea. GASTROINTESTINAL: Denies abdominal pain, nausea, vomiting, or diarrhea. GENITOURINARY: Denies dysuria or hematuria. SKIN: Denies rash or itching. MUSCULOSKELETAL: Denies back pain, joint pain, or myalgia. NEUROLOGIC: Denies headache, numbness, or weakness. PSYCHIATRIC: Denies anxiety or depression. [facility] Past Medical History Medical History (Updated 09/23/20 @ 22:42 by Linda Aviles MD) Chronic anemia Chronic kidney disease, stage 3 Congestive heart failure Systolic and diastolic congestive heart failure Echo 11/27 showed EF 50%. Echo 01/14/2019: EF measured at 39%. September 2018 EF was 25%. Echo 12/02/2019 EF 50-55%. Grade 1 diastolic function. Coronary artery disease With multivessel surgical revascularization with PCI at [place] October 2017. Cardiac catheterization 10/17/2018-mild preserved intra-stent luminal diameter Current use of shelter anticoagulation Depression with anxiety Detached retina Right-sided, x2. Frequent headaches GERD (gastroesophageal reflux disease) With history of esophageal stricture requiring dilatation. History of GI bleed History of rectal polyps Hyperlipidemia Hypertension Hypothyroidism TSH in November 2019 was a bit low, with normal T4. Irritable bowel syndrome Ischemic cardiomyopathy Mitral valve prolapse Myasthenia gravis Questionable history of. Obstructive sleep apnea Ocular herpes zoster History of shingles to the left eye, on chronic antiviral therapy. Paroxysmal atrial fibrillation No longer on long-term anticoagulation due to history of falls. Peripheral neuropathy Rectal polyp Restless leg syndrome Shingles Solitary rectal ulcer syndrome Stage III chronic kidney disease Surgical History Surgical History Status post appendectomy Status post bilateral hip replacements Status post bilateral knee replacements Status post breast biopsy Bilateral with benign histology. Status post carpal tunnel release Status post cataract extraction Bilateral. Status post cholecystectomy Status post laminectomy Lumbar spine. Status post LASIK surgery Status
[2020-09-23] MEDS: SODIUM CHLORIDE 0.9% IV 1,000 ML 999 ML IV CONT (21:59)
[2020-09-23] MEDS: LORazepam INJ (*CRX) 2 MG/ML VIAL 1 MG IV PUSH (21:59)
--- NOTE | 2020-09-23 21:59 | PC.NURSE ---
SL inserted. labs drawn. patient medicated as ordered. side rails up x 2. call light in reach. patient on vehicle monitor technician.
[2020-09-23 22:03] LABS: Basophils Percent Auto 0.2 % (0.2-1.2); Eosinophils Percent Auto 0.2 % (0-4.4); Hematocrit 26.7 % (37.0-47.0); Hemoglobin 8.9 g/dL (12.0-15.0); Immature Granulocyte Absolute 0.02 K/mm3 (0.00-0.031); Immature Granulocyte Percent A 0.4 % (0-0.5); Lymphocytes Absolute Auto 0.95 K/mm3 (0.9-3.2); Lymphocytes Percent Auto 19.3 % (18.3-44.2); Mean Corpuscular HGB Conc 33.3 g/dl (32-36); Mean Corpuscular Hemoglobin 32.6 pg (26-34); Mean Corpuscular Volume 97.8 fl (80-100); Mean Platelet Volume 9.8 fl (7.4-10.4); Monocytes Absolute Auto 0.5 K/mm3 (0.1-0.6); Neutrophils Absolute Auto 3.4 K/mm3 (1.3-6.7); Neutrophils Percent Auto 69.9 % (45.5-73.1); Platelet Count Result 221 k/mm3 (150-375); Red Blood Count 2.73 M/mm3 (4.2-5.4); Red Cell Distribution Width 12.5 % (11.5-14.5); White Blood Count 4.9 K/mm3 (4.5-10.0)
[2020-09-23 22:16] LABS: Anion Gap 8 mmol/L (8-16); Blood Urea Nitrogen 26 mg/dL (7-17); Calcium 8.5 mg/dL (8.4-10.2); Carbon Dioxide 31 mmol/L (22-30); Chloride 91 mmol/L (98-107); Estimated CRCL calculation 17 ml/min; Estimated Glomerular Filt Rate 31; Glucose 86 mg/dL (65-105); Potassium 3.4 mmol/L (3.4-5.0); Sodium 130 mmol/L (137-145)
[2020-09-23 22:26] LABS: Troponin I < 0.012 ng/mL (0.000-0.034)
[2020-09-23] MEDS: BELLADONNA ALK/PHENOB ELIX 10 ML, MAG HYDROX/ALUMINUM HYD/SIMETH 30 ML, LIDOCAINE HCL 2... PO (22:30)
[2020-09-23 22:39] VITALS: BP 130/90; PULSE 67; RESP 15; O2SAT 98
== END 2020-09-23 23:27 | disposition home or self-care (01) ==
PROVIDERS: Emergency Provider Emergency Medicine; PCP Family Medicine
DX: R07.89 Other chest pain (principal); R10.9 Unspecified abdominal pain; G89.29 Other chronic pain; I13.0 Hypertensive heart and chronic kidney disease with heart failure and stage 1 through stage 4 chronic kidney disease, or unspecified chronic kidney disease; N18.30 Chronic kidney disease, stage 3 unspecified; I50.40 Unspecified combined systolic (congestive) and diastolic (congestive) heart failure; I25.10 Atherosclerotic heart disease of native coronary artery without angina pectoris; Z79.01 Long term (current) use of anticoagulants; K21.9 Gastro-esophageal reflux disease without esophagitis; E78.5 Hyperlipidemia, unspecified; E03.9 Hypothyroidism, unspecified; G25.81 Restless legs syndrome; Z87.19 Personal history of other diseases of the digestive system; F41.8 Other specified anxiety disorders; G47.33 Obstructive sleep apnea (adult) (pediatric); G62.9 Polyneuropathy, unspecified; Z96.643 Presence of artificial hip joint, bilateral; Z96.653 Presence of artificial knee joint, bilateral; Z98.42 Cataract extraction status, left eye; Z98.41 Cataract extraction status, right eye; I25.5 Ischemic cardiomyopathy
CPT/HCPCS: 36415; 80048; 84484; 85025; 93005; 96361; 96374; 99284; A9270; J2060; J7030

== ENCOUNTER 2020-10-08 21:22 | Emergency (ER) | payer MEDICARE, SELFPAY ==
--- NOTE | ~2020-10-08 | XR_ITS ---
EXAMINATION: XR chest 2V DATE: 10/08/2020 21:43 INDICATION: Midsternal chest pain radiating to the epigastric region TECHNIQUE: PA and lateral views of the chest were obtained. COMPARISON: Chest radiograph dated 09/22/2020 FINDINGS: Lungs are hyperexpanded but clear with no focal airspace opacities, pulmonary edema, pleural effusion or pneumothorax. Nipple shadows project over the bilateral lung bases. Cardiomegaly. Coronary artery stenting. Cholecystectomy clips in right upper quadrant. Moderate scattered degenerative skeletal ch anges in the spine and at both shoulders. Lumbar levoscoliosis. Bilateral distal clavicle resections. IMPRESSION: 1. Cardiomegaly. Reviewed, dictated and finalized at location A. T PAINTING LEADER IMPRESSION: 1. Cardiomegaly.
[2020-10-08 21:25] VITALS: BP 125/66; PULSE 62; RESP 18; TEMP 36.1; O2SAT 96
[2020-10-08] MEDS: BELLADONNA ALK/PHENOB ELIX 10 ML, MAG HYDROX/ALUMINUM HYD/SIMETH 30 ML, LIDOCAINE HCL 2... PO (21:42)
[2020-10-08 21:52] LABS: Basophils Percent Auto 0.2 % (0.2-1.2); Eosinophils Percent Auto 0.6 % (0-4.4); Hemoglobin 9.9 g/dL (12.0-15.0); Immature Granulocyte Absolute 0.03 K/mm3 (0.00-0.031); Immature Granulocyte Percent A 0.6 % (0-0.5); Lymphocytes Absolute Auto 1.03 K/mm3 (0.9-3.2); Lymphocytes Percent Auto 20.6 % (18.3-44.2); Mean Corpuscular Hemoglobin 32.2 pg (26-34); Mean Corpuscular Volume 97.7 fl (80-100); Mean Platelet Volume 9.4 fl (7.4-10.4); Monocytes Absolute Auto 0.4 K/mm3 (0.1-0.6); Monocytes Percent Auto 8.2 % (2.6-8.5); Neutrophils Absolute Auto 3.5 K/mm3 (1.3-6.7); Neutrophils Percent Auto 69.8 % (45.5-73.1); Platelet Count Result 238 k/mm3 (150-375); Red Blood Count 3.07 M/mm3 (4.2-5.4); Red Cell Distribution Width 12.3 % (11.5-14.5)
[2020-10-08 22:02] LABS: INR 0.9
[2020-10-08 22:03] LABS: Partial Thromboplastin Time 30.4 SECONDS (22.3-36.8)
[2020-10-08] MEDS: LORazepam (*CRX) 0.5 MG TABLET PO (22:03)
--- NOTE | 2020-10-08 22:04 | ECG_ITS ---
Measurements Intervals [place] Rate: 62 P: 98 [place]: 160 QRS: -52 QRSD: 94 T: 52 QT: 442 QTc: 451 Interpretive Statements SINUS RHYTHM SUPRAVENTRICULAR BIGEMINY LEFT AXIS DEVIATION ANTEROSEPTAL INFARCT, AGE INDETERMINATE BORDERLINE T WAVE ABNORMALITY- INFERIOR LEADS BASELINE WANDER- III, AVL, AVF, V1-V6 ABNORMAL ECG Electronically Signed On 10-09-2020 7:13:55 ORTHO RN by Marlon Joe D.O.
[2020-10-08 22:05] LABS: Alanine Aminotransferase 26 U/L (4-35); Albumin Level 3.8 g/dL (3.5-5.1); Alkaline Phosphatase 94 U/L (38-126); Anion Gap 4 mmol/L (8-16); Aspartate Amino Transferase 51 U/L (14-36); Bilirubin,Total 0.3 mg/dL (0.2-1.3); Blood Urea Nitrogen 21 mg/dL (7-17); Calcium 8.5 mg/dL (8.4-10.2); Carbon Dioxide 31 mmol/L (22-30); Chloride 95 mmol/L (98-107); Estimated Glomerular Filt Rate 29; Glucose 101 mg/dL (65-105); Lipase 409 U/L (23-300); Potassium 3.6 mmol/L (3.4-5.0); Sodium 130 mmol/L (137-145)
[2020-10-08 22:16] LABS: Troponin I < 0.012 ng/mL (0.000-0.034)
--- NOTE | 2020-10-08 22:55 | ED.CHESTPAIN ---
HPI - Chest Pain General Chief Complaint: Chest Pain Stated Complaint: chest & abd pain Time Seen by Provider: 10/08/20 21:31 History of Present Illness HPI narrative: Patient is an 80-year-old female who presents to the ER with chest pain. This is her typical chest pain that occurs with relative frequency. Reports this morning she began to have some epigastric discomfort that began to move up into her chest. Is burning in nature. No nausea or vomiting. No fevers or chills or sweats. No exertional component. Improves when she takes Xanax. Related Data Home Medications Medication Instructions Recorded Confirmed Entresto 1 tablet PO Q12H 09/01/19 07/02/20 alprazolam 0.5 mg PO TID PRN 09/01/19 07/02/20 clopidogrel 75 mg PO DAILY 09/01/19 07/02/20 hydralazine 10 mg PO TID 09/01/19 07/02/20 levothyroxine 125 mcg PO DAILY 09/01/19 07/02/20 metoprolol succinate 50 mg PO DAILY 09/01/19 07/02/20 nitroglycerin 0.4 mg SUBLINGUAL Q5M PRN 09/01/19 07/02/20 trazodone 100 mg PO HS 09/01/19 07/02/20 ferrous sulfate 325 mg PO DAILY 09/06/19 07/02/20 prednisolone acetate 1 % RIGHTEYE DAILY 09/06/19 07/02/20 oxybutynin chloride 10 mg PO DAILY 03/20/20 07/02/20 acyclovir 1,000 mg PO DAILY 05/31/20 07/02/20 sertraline 25 mg PO DAILY 06/16/20 07/02/20 furosemide 20 mg PO DAILY 07/02/20 07/02/20 Allergies Allergy/AdvReac Type Severity Reaction Status Date / Time Penicillins Allergy Unknown Rash Verified 09/19/20 20:20 Review of Systems Review of Systems: All systems reviewed & are unremarkable except as noted in HPI and below Constitutional: Constitutional: Denies chills, Denies fever(s) and Denies weakness ENT: Denies nasal congestion and Denies sore throat Cardiovascular: Cardiovascular: Reports chest pain and Denies radiating jaw, neck or arm pain Respiratory: Respiratory: Denies cough, Denies dyspnea and Denies wheezing Gastrointestinal: Gastrointestinal: Denies abdominal pain, Reports heartburn, Denies nausea and Denies vomiting [facility] Past Medical History Medical History (Updated 10/08/20 @ 23:29 by Pablito De Souza MD) Chronic anemia Chronic kidney disease, stage 3 Congestive heart failure Systolic and diastolic congestive heart failure Echo 11/27 showed EF 50%. Echo 01/14/2019: EF measured at 39%. September 2018 EF was 25%. Echo 12/02/2019 EF 50-55%. Grade 1 diastolic function. Coronary artery disease With multivessel surgical revascularization with PCI at [place] October 2017. 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 Frequent headaches GERD (gastroesophageal reflux disease) With history of esophageal stricture requiring dilatation. History of GI bleed History of rectal polyps Hyperlipidemia Hypertension Hypothyroidism TSH in November 2019 was a bit low, with normal T4. Irritable bowel syndrome Ischemic cardiomyopathy Mitral valve prolapse Myasthenia gravis Questionable history of. Obstructive sleep apnea Ocular herpes zoster History of shingles to the left eye, on chronic antiviral therapy. Paroxysmal atrial fibrillation No longer on long-term anticoagulation due to history of falls. Peripheral neuropathy Rectal polyp Restless leg syndrome Shingles Solitary rectal ulcer syndrome Stage III chronic kidney disease Surgical History Surgical History Status post appendectomy Status post bilateral hip replacements Status post bilateral knee replacements Status post breast biopsy Bilateral with benign histology. Status post carpal tunnel release Status post cataract extraction Bilateral. Status post cholecystectomy Status post laminectomy Lumbar spine. Status post LASIK surgery Status post rotator cuff repair Status post tonsillectomy Family History Family History
[2020-10-08 23:20] VITALS: BP 120/83; PULSE 61; RESP 18; O2SAT 96
== END 2020-10-08 23:56 | disposition home or self-care (01) ==
PROVIDERS: Emergency Provider Emergency Medicine; PCP Family Medicine
DX: K21.9 Gastro-esophageal reflux disease without esophagitis (principal); I13.0 Hypertensive heart and chronic kidney disease with heart failure and stage 1 through stage 4 chronic kidney disease, or unspecified chronic kidney disease; I50.40 Unspecified combined systolic (congestive) and diastolic (congestive) heart failure; N18.30 Chronic kidney disease, stage 3 unspecified; I25.10 Atherosclerotic heart disease of native coronary artery without angina pectoris; I48.0 Paroxysmal atrial fibrillation; Z79.01 Long term (current) use of anticoagulants; E78.5 Hyperlipidemia, unspecified; K58.9 Irritable bowel syndrome, unspecified; I34.1 Nonrheumatic mitral (valve) prolapse; G47.33 Obstructive sleep apnea (adult) (pediatric); G62.9 Polyneuropathy, unspecified; Z87.19 Personal history of other diseases of the digestive system; G25.81 Restless legs syndrome; F41.8 Other specified anxiety disorders; Z96.643 Presence of artificial hip joint, bilateral; Z96.653 Presence of artificial knee joint, bilateral; Z98.42 Cataract extraction status, left eye; Z98.41 Cataract extraction status, right eye
CPT/HCPCS: 36415; 71046; 80048; 80076; 83690; 84484; 85025; 85610; 85730; 93005; 99284; A9270

== ENCOUNTER 2020-10-14 15:27 | Emergency (ER) | payer MEDICARE, SELFPAY ==
[2020-10-14] VITALS (7 sets, daily range): BP systolic 144–156; BP diastolic 78–136; PULSE 64–109; RESP 18–28; TEMP 36.4; O2SAT 97–99
--- NOTE | ~2020-10-14 | XR_ITS ---
EXAMINATION: XR chest 1V portable EXAM DATE: 10/14/2020 16:07 INDICATION: Mid chest pain, epigastric pain. Leg pain. History of reflux and hypertension. TECHNIQUE: Portable AP frontal chest x-ray was obtained. Comparison is made to prior examination from 10/08/2020. FINDINGS: The lungs are clear. There are no pleural effusions. The cardiac silhouette is enlarged. C oronary artery stents. There is no pneumothorax suspected. Mild thoracal lumbar scoliosis. The bones are osteopenic. There are bony degenerative changes. There is aortic arteriosclerosis. Chronic hype rinflation. There are cholecystectomy clips. IMPRESSION: 1. No acute cardiopulmonary findings. 2. Hyperinflation. Reviewed, dictated and finalized at location A. MAN
--- NOTE | 2020-10-14 15:39 | ECG_ITS ---
Measurements Intervals [place] Rate: 73 P: 75 [place]: 156 QRS: -33 QRSD: 94 T: 88 QT: 359 QTc: 397 Interpretive Statements SINUS RHYTHM ATRIAL COUPLET AND ATRIAL AND VENTRICULAR PREMATURE COMPLEXES LEFT AXIS DEVIATION ANTEROSEPTAL INFARCT, AGE INDETERMINATE BORDERLINE T WAVE ABNORMALITY- ANTEROLAT/INF LEADS BASELINE WANDER- II, III, AVL, AVF, V2-V3, V5-V6 ABNORMAL ECG Electronically Signed On 10-14-2020 16:02:52 MACHINIST/MACHINE BUILDER by Marlon Joe D.O.
--- NOTE | 2020-10-14 15:55 | ED.CHESTPAIN ---
HPI - Chest Pain General Chief Complaint: Chest Pain Stated Complaint: HORRIBLE CHEST PAINS Time Seen by Provider: 10/14/20 15:32 Source: patient Mode of arrival: ambulatory Limitations: no limitations History of Present Illness HPI narrative: Patient is an 80-year-old female complaining of chest pain left side, 07/17, sharp, radiating to the whole left side of her body that started today. Patient has history of chronic chest pain and comes in almost every week for the same complaint. Multiple ER visits for the same complaints most recent one was 2 weeks ago. Patient denies any shortness of breath, abdominal pain, nausea, vomiting, diaphoresis, fever or chills. Related Data Home Medications Medication Instructions Recorded Confirmed Entresto 1 tablet PO Q12H 09/01/19 07/02/20 alprazolam 0.5 mg PO TID PRN 09/01/19 07/02/20 clopidogrel 75 mg PO DAILY 09/01/19 07/02/20 hydralazine 10 mg PO TID 09/01/19 07/02/20 levothyroxine 125 mcg PO DAILY 09/01/19 07/02/20 metoprolol succinate 50 mg PO DAILY 09/01/19 07/02/20 nitroglycerin 0.4 mg SUBLINGUAL Q5M PRN 09/01/19 07/02/20 trazodone 100 mg PO HS 09/01/19 07/02/20 ferrous sulfate 325 mg PO DAILY 09/06/19 07/02/20 prednisolone acetate 1 % RIGHTEYE DAILY 09/06/19 07/02/20 oxybutynin chloride 10 mg PO DAILY 03/20/20 07/02/20 acyclovir 1,000 mg PO DAILY 05/31/20 07/02/20 sertraline 25 mg PO DAILY 06/16/20 07/02/20 furosemide 20 mg PO DAILY 07/02/20 07/02/20 Allergies Allergy/AdvReac Type Severity Reaction Status Date / Time Penicillins Allergy Unknown Rash Verified 10/14/20 15:50 Review of Systems Review of Systems: All systems reviewed & are unremarkable except as noted in HPI and below Constitutional: Constitutional: Denies body ache(s), Denies chills, Denies excessive sweating, Denies fatigue, Denies fever(s), Denies headache(s), Denies lethargy, Denies malaise, Denies weakness and Denies weight loss Eyes: Eyes: Denies blurry vision, Denies change in vision and Denies loss of vision ENT: Denies dizziness, Denies ear discharge, Denies headache(s), Denies lip swelling, Denies epistaxis, Denies nasal congestion, Denies neck pain, Denies throat swelling and Denies tongue swelling Cardiovascular: Cardiovascular: Denies diaphoresis, Denies rapid heart rate, Denies edema, Denies irregular heart rhythm, Denies lightheadedness, Denies palpitations, Denies dyspnea and Denies dyspnea on exertion Respiratory: Respiratory: Denies chest congestion, Denies cough, Denies hemoptysis, Denies dyspnea and Denies dyspnea on exertion Gastrointestinal: Gastrointestinal: Denies abdominal pain, Denies melena, Denies hematochezia, Denies diarrhea, Denies nausea, Denies vomiting and Denies hematemesis Musculoskeletal: Musculoskeletal: Denies abnormal gait, Denies deformity, Denies joint swelling, Denies limited range of motion, Denies neck pain and Denies numbness Neurologic: Denies Abnormal speech present, Denies abnormal gait, Denies confusion, Denies dizziness, Denies headache(s), Denies focal weakness, Denies loss of vision, Denies numbness, Denies Other visual disturbances, Denies Sensory deficit (Neuro) and Denies weakness Psychiatric: Psychiatric: Denies confusion, Denies depression, Denies auditory hallucinations, Denies homicidal ideation and Denies suicidal ideation Endocrine: Endocrine: Denies cold intolerance, Denies excessive sweating, Denies fatigue, Denies heat intolerance and Denies palpitations Hematologic/Lymphatic: Hematologic/Lymphatic: Denies easy bleeding and Denies easy bruising Allergic/Immunologic: Allergic/Immunologic: Denies lip swelling, Denies throat swelling and Denies tongue swelling [facility] Past Medical History Medical History (Updated 10/14/20 @ 17:42 by José Miguel Mclean MD) Chronic anemia Chronic kidney disease, stage 3 Congestive heart failure Systolic and diastolic congestive heart failure Echo 11/27 showed EF 50%. Echo 01/14/2019: EF measured at 39%. September 2018 EF
[2020-10-14 16:13] LABS: Basophils Percent Auto 0.2 % (0.2-1.2); Eosinophils Percent Auto 0.2 % (0-4.4); Hematocrit 28.3 % (37.0-47.0); Hemoglobin 9.5 g/dL (12.0-15.0); Immature Granulocyte Absolute 0.03 K/mm3 (0.00-0.031); Immature Granulocyte Percent A 0.6 % (0-0.5); Lymphocytes Absolute Auto 1.02 K/mm3 (0.9-3.2); Lymphocytes Percent Auto 19.2 % (18.3-44.2); Mean Corpuscular HGB Conc 33.6 g/dl (32-36); Mean Corpuscular Volume 95.3 fl (80-100); Mean Platelet Volume 9.7 fl (7.4-10.4); Monocytes Absolute Auto 0.4 K/mm3 (0.1-0.6); Monocytes Percent Auto 7.7 % (2.6-8.5); Neutrophils Absolute Auto 3.8 K/mm3 (1.3-6.7); Neutrophils Percent Auto 72.1 % (45.5-73.1); Platelet Count Result 220 k/mm3 (150-375); Red Blood Count 2.97 M/mm3 (4.2-5.4); Red Cell Distribution Width 12.3 % (11.5-14.5); White Blood Count 5.3 K/mm3 (4.5-10.0)
[2020-10-14] MEDS: LORazepam (*CRX) 1 MG TABLET PO (16:22)
[2020-10-14 16:28] LABS: Anion Gap 9 mmol/L (8-16); Blood Urea Nitrogen 17 mg/dL (7-17); Calcium 8.7 mg/dL (8.4-10.2); Carbon Dioxide 30 mmol/L (22-30); Chloride 87 mmol/L (98-107); Estimated CRCL calculation 16 ml/min; Estimated Glomerular Filt Rate 25; Glucose 109 mg/dL (65-105); Potassium 2.6 mmol/L (3.4-5.0); Sodium 126 mmol/L (137-145)
[2020-10-14 16:32] LABS: D Dimer 0.45 ug/mL (<0.48)
[2020-10-14 16:36] LABS: Troponin I < 0.012 ng/mL (0.000-0.034)
[2020-10-14] MEDS: POTASSIUM CHLORIDE 20 MEQ PACKET (FOR LIQUID) 40 MEQ PO (16:56)
[2020-10-14] MEDS: KCL 20 MEQ/D5/0.45% SOD CHL 1,000 ML 125 ML IV CONT (17:20)
--- NOTE | 2020-10-21 08:49 | PC.NURSE ---
LATE ENTRY This note is being entered to document information to the patient's record. The following information was omitted on [10/21/20], by [Genia Dominguez [facility] drip stopped at 1829 on 10/14/20].
== END 2020-10-14 18:29 | disposition home or self-care (01) ==
PROVIDERS: Emergency Provider Emergency Medicine; PCP Nurse Practitioner Family
DX: R07.89 Other chest pain (principal); E87.6 Hypokalemia; I12.9 Hypertensive chronic kidney disease with stage 1 through stage 4 chronic kidney disease, or unspecified chronic kidney disease; N18.30 Chronic kidney disease, stage 3 unspecified; I50.40 Unspecified combined systolic (congestive) and diastolic (congestive) heart failure; D63.1 Anemia in chronic kidney disease; I25.10 Atherosclerotic heart disease of native coronary artery without angina pectoris; F41.8 Other specified anxiety disorders; E78.5 Hyperlipidemia, unspecified; K21.9 Gastro-esophageal reflux disease without esophagitis; K58.9 Irritable bowel syndrome, unspecified; Z87.19 Personal history of other diseases of the digestive system; I34.1 Nonrheumatic mitral (valve) prolapse; G47.33 Obstructive sleep apnea (adult) (pediatric); I48.0 Paroxysmal atrial fibrillation; G62.9 Polyneuropathy, unspecified; G89.29 Other chronic pain; Z79.01 Long term (current) use of anticoagulants; Z96.643 Presence of artificial hip joint, bilateral; Z96.653 Presence of artificial knee joint, bilateral; Z98.42 Cataract extraction status, left eye; Z98.41 Cataract extraction status, right eye; I49.3 Ventricular premature depolarization; R00.8 Other abnormalities of heart beat; R94.31 Abnormal electrocardiogram [ECG] [EKG]
CPT/HCPCS: 36415; 71045; 80048; 84484; 85025; 85380; 93005; 96365; 99284; A9270; J3480

== ENCOUNTER 2020-10-15 20:48 | Emergency (ER) | payer MEDICARE, SELFPAY ==
[2020-10-15] VITALS (17 sets, daily range): BP systolic 145–168; BP diastolic 85–119; PULSE 62–92; RESP 13–39; TEMP 36.3; O2SAT 91–99
--- NOTE | ~2020-10-15 | XR_ITS ---
EXAMINATION: XR chest 1V portable EXAM DATE: 10/15/2020 22:06 INDICATION: Left-sided chest pain down to stomach, shortness of breath for one day. History of paredes ry artery disease, CHF and hypertension. TECHNIQUE: Portable AP frontal chest x-ray was obtained. Comparison is made to prior examination from 10/14/2020. FINDINGS: Chronic hyperinflation. The lungs are clear. There are no pleural effusions. The cardiome diastinal silhouette is within normal limits. There is no pneumothorax suspected. There are bony de generative changes. There is aortic arteriosclerosis. IMPRESSION: 1. No acute cardiopulmonary findings. 2. Hyperinflation. Reviewed, dictated and finalized at location A. MER TAILER
--- NOTE | 2020-10-15 21:15 | ECG_ITS ---
Measurements Intervals [place] Rate: 72 P: 75 DC: 155 QRS: -49 QRSD: 90 T: 0 QT: 212 QTc: 233 Interpretive Statements SINUS RHYTHM FREQUENT ATRIAL PREMATURE COMPLEXES LEFT AXIS DEVIATION ANTEROSEPTAL INFARCT, AGE INDETERMINATE BASELINE WANDER- I, II, III, AVL, AVF, V5-V6 ABNORMAL ECG Electronically Signed On 10-16-2020 7:28:06 LEAN PROCESS DEPLOYMENT CONSULTANT by Marlon Joe D.O.
--- NOTE | 2020-10-15 21:31 | ED.CHESTPAIN ---
HPI - Chest Pain General Chief Complaint: Chest Pain Stated Complaint: pain to chest, abd and both legs Time Seen by Provider: 10/15/20 21:12 Source: patient Mode of arrival: ambulatory Limitations: no limitations History of Present Illness HPI narrative: Patient is a 80-year-old female complaining of chest pain, left chest, radiating to her whole left side of the body. Patient states her pain is a 10 out of 10, sharp. Patient history of chronic chest pain was seen here yesterday for the same thing, this is her third visit this past week, was seen October 08, October 14 and today October 15. Patient has history of of multiple ER visits due to chest pain and comes in at least once a week for the same complaints. Related Data Home Medications Medication Instructions Recorded Confirmed Entresto 1 tablet PO Q12H 09/01/19 07/02/20 alprazolam 0.5 mg PO TID PRN 09/01/19 07/02/20 clopidogrel 75 mg PO DAILY 09/01/19 07/02/20 hydralazine 10 mg PO TID 09/01/19 07/02/20 levothyroxine 125 mcg PO DAILY 09/01/19 07/02/20 metoprolol succinate 50 mg PO DAILY 09/01/19 07/02/20 nitroglycerin 0.4 mg SUBLINGUAL Q5M PRN 09/01/19 07/02/20 trazodone 100 mg PO HS 09/01/19 07/02/20 ferrous sulfate 325 mg PO DAILY 09/06/19 07/02/20 prednisolone acetate 1 % RIGHTEYE DAILY 09/06/19 07/02/20 oxybutynin chloride 10 mg PO DAILY 03/20/20 07/02/20 acyclovir 1,000 mg PO DAILY 05/31/20 07/02/20 sertraline 25 mg PO DAILY 06/16/20 07/02/20 furosemide 20 mg PO DAILY 07/02/20 07/02/20 Allergies Allergy/AdvReac Type Severity Reaction Status Date / Time Penicillins Allergy Unknown Rash Verified 10/15/20 22:20 Review of Systems Review of Systems: All systems reviewed & are unremarkable except as noted in HPI and below Constitutional: Constitutional: Denies body ache(s), Denies chills, Denies excessive sweating, Denies fatigue, Denies fever(s), Denies headache(s), Denies lethargy, Denies malaise, Denies weakness and Denies weight loss Eyes: Eyes: Denies blurry vision, Denies change in vision and Denies loss of vision ENT: Denies dizziness, Denies ear discharge, Denies headache(s), Denies lip swelling, Denies epistaxis, Denies nasal congestion, Denies neck pain, Denies throat swelling and Denies tongue swelling Cardiovascular: Cardiovascular: Denies diaphoresis, Denies rapid heart rate, Denies edema, Denies irregular heart rhythm, Denies lightheadedness, Denies palpitations, Denies dyspnea and Denies dyspnea on exertion Respiratory: Respiratory: Denies chest congestion, Denies cough, Denies hemoptysis, Denies dyspnea and Denies dyspnea on exertion Gastrointestinal: Gastrointestinal: Denies abdominal pain, Denies melena, Denies hematochezia, Denies diarrhea, Denies nausea, Denies vomiting and Denies hematemesis Musculoskeletal: Musculoskeletal: Denies abnormal gait, Denies deformity, Denies joint swelling, Denies limited range of motion, Denies neck pain and Denies numbness Neurologic: Denies Abnormal speech present, Denies abnormal gait, Denies confusion, Denies dizziness, Denies headache(s), Denies focal weakness, Denies loss of vision, Denies numbness, Denies Other visual disturbances, Denies Sensory deficit (Neuro) and Denies weakness Psychiatric: Psychiatric: Denies confusion, Denies depression, Denies auditory hallucinations, Denies homicidal ideation and Denies suicidal ideation Endocrine: Endocrine: Denies cold intolerance, Denies excessive sweating, Denies fatigue, Denies heat intolerance and Denies palpitations Hematologic/Lymphatic: Hematologic/Lymphatic: Denies easy bleeding and Denies easy bruising Allergic/Immunologic: Allergic/Immunologic: Denies lip swelling, Denies throat swelling and Denies tongue swelling [facility] Past Medical History Medical History (Updated 10/15/20 @ 22:54 by José Miguel Mclean MD) Chronic anemia Chronic kidney disease, stage 3 Congestive heart failure Systolic and diastolic congestive heart failure Echo 11/27 showed EF 50%. Echo
[2020-10-15 21:35] LABS: Basophils Percent Auto 0.2 % (0.2-1.2); Eosinophils Percent Auto 0.4 % (0-4.4); Hematocrit 27.5 % (37.0-47.0); Hemoglobin 9.4 g/dL (12.0-15.0); Immature Granulocyte Absolute 0.04 K/mm3 (0.00-0.031); Immature Granulocyte Percent A 0.9 % (0-0.5); Lymphocytes Absolute Auto 1.14 K/mm3 (0.9-3.2); Lymphocytes Percent Auto 24.6 % (18.3-44.2); Mean Corpuscular HGB Conc 34.2 g/dl (32-36); Mean Corpuscular Hemoglobin 32.6 pg (26-34); Mean Corpuscular Volume 95.5 fl (80-100); Mean Platelet Volume 9.5 fl (7.4-10.4); Monocytes Absolute Auto 0.4 K/mm3 (0.1-0.6); Monocytes Percent Auto 7.5 % (2.6-8.5); Neutrophils Absolute Auto 3.1 K/mm3 (1.3-6.7); Neutrophils Percent Auto 66.4 % (45.5-73.1); Platelet Count Result 206 k/mm3 (150-375); Red Blood Count 2.88 M/mm3 (4.2-5.4); Red Cell Distribution Width 12.3 % (11.5-14.5); White Blood Count 4.6 K/mm3 (4.5-10.0)
[2020-10-15 21:45] LABS: Prothrombin Time 13.3 Seconds (11.1-14.7)
[2020-10-15 21:46] LABS: Partial Thromboplastin Time 28.8 SECONDS (22.3-36.8)
[2020-10-15 21:47] LABS: Anion Gap 8 mmol/L (8-16); Blood Urea Nitrogen 16 mg/dL (7-17); Calcium 8.4 mg/dL (8.4-10.2); Carbon Dioxide 33 mmol/L (22-30); Chloride 89 mmol/L (98-107); Estimated CRCL calculation 13 ml/min; Estimated Glomerular Filt Rate 23; Glucose 93 mg/dL (65-105); Potassium 3.1 mmol/L (3.4-5.0); Sodium 130 mmol/L (137-145)
[2020-10-15 21:58] LABS: Troponin I < 0.012 ng/mL (0.000-0.034)
[2020-10-15] MEDS: ASPIRIN 81 MG CHEWABLE TABLET 324 MG PO (22:00)
[2020-10-15] MEDS: POTASSIUM CHLORIDE 20 MEQ PACKET (FOR LIQUID) 40 MEQ PO (22:53)
[2020-10-15] MEDS: ACETAMINOPHEN 325 MG TABLET 650 MG PO (22:54)
== END 2020-10-15 23:29 | disposition home or self-care (01) ==
PROVIDERS: Emergency Provider Emergency Medicine; PCP Nurse Practitioner Family
DX: R07.9 Chest pain, unspecified (principal); G89.29 Other chronic pain; E87.6 Hypokalemia; I13.0 Hypertensive heart and chronic kidney disease with heart failure and stage 1 through stage 4 chronic kidney disease, or unspecified chronic kidney disease; N18.30 Chronic kidney disease, stage 3 unspecified; I50.40 Unspecified combined systolic (congestive) and diastolic (congestive) heart failure; K21.9 Gastro-esophageal reflux disease without esophagitis; I25.10 Atherosclerotic heart disease of native coronary artery without angina pectoris; Z79.01 Long term (current) use of anticoagulants; F41.8 Other specified anxiety disorders; Z87.19 Personal history of other diseases of the digestive system; E78.5 Hyperlipidemia, unspecified; E03.9 Hypothyroidism, unspecified; K58.9 Irritable bowel syndrome, unspecified; I34.1 Nonrheumatic mitral (valve) prolapse; G62.9 Polyneuropathy, unspecified; G25.81 Restless legs syndrome; Z96.643 Presence of artificial hip joint, bilateral; Z96.653 Presence of artificial knee joint, bilateral; Z98.42 Cataract extraction status, left eye; Z98.41 Cataract extraction status, right eye
CPT/HCPCS: 36415; 71045; 80048; 84484; 85025; 85610; 85730; 93005; 99284; A9270

== ENCOUNTER 2020-10-19 16:20 | Emergency (ER) | payer MEDICARE, SELFPAY ==
[2020-10-19 16:31] VITALS: BP 132/80; PULSE 78; RESP 20; TEMP 36; O2SAT 99
--- NOTE | 2020-10-19 18:10 | PC.NURSE ---
pt states she has to leave - here to pick her up. Gait steady upon leaving the ER.
== END 2020-10-19 18:10 | disposition left against medical advice (07) ==
LOC: ANHED 18:16
PROVIDERS: PCP Nurse Practitioner Family
DX: R07.9 Chest pain, unspecified (principal)
CPT/HCPCS: 99199

== ENCOUNTER 2020-10-21 15:06 | Emergency (ER) | payer MEDICARE, SELFPAY ==
--- NOTE | ~2020-10-21 | XR_ITS ---
EXAMINATION: XR chest 1V portable EXAM DATE: 10/21/2020 16:43 INDICATION: Chest pain and dizziness, GERD, coronary artery disease and hypertension. TECHNIQUE: Portable AP frontal chest x-ray was obtained. There are no prior studies for comparison. FINDINGS: Severe chronic hyperinflation. There is aortic arteriosclerosis. There is cardiomegaly. No confluent consolidation, pneumothorax or pleural effusion suspected. The bones are osteopenic. There are bony degenerative changes. IMPRESSION: 1. Cardiomegaly. 2. Hyperinflation. Reviewed, dictated and finalized at location B. SET WINDER OPERATOR
[2020-10-21 15:09] VITALS: BP 123/82; PULSE 73; RESP 18; TEMP 36.4; O2SAT 100
--- NOTE | 2020-10-21 15:10 | ECG_ITS ---
Measurements Intervals [place] Rate: 72 P: GA: 0 QRS: -44 QRSD: 86 T: 89 QT: 345 QTc: 378 Interpretive Statements SINUS RHYTHM WITH SINUS ARRHYTHMIA ATRIAL PREMATURE COMPLEXES LEFT AXIS DEVIATION LOW QRS VOLTAGE IN PRECORDIAL LEADS ANTEROSEPTAL INFARCT, AGE INDETERMINATE BORDERLINE ST-T WAVE ABNORMALITY- HIGH LATERAL LEADS BASELINE ARTIFACT- I, II, III, AVR, AVL, AVF, V6 ABNORMAL ECG Electronically Signed On 10-22-2020 13:17:19 RATTAN WORKER by Marlon Joe D.O.
[2020-10-21 15:25] LABS: Basophils Percent Auto 0.4 % (0.2-1.2); Eosinophils Percent Auto 0.4 % (0-4.4); Hematocrit 27.7 % (37.0-47.0); Hemoglobin 9.2 g/dL (12.0-15.0); Immature Granulocyte Absolute 0.03 K/mm3 (0.00-0.031); Immature Granulocyte Percent A 0.5 % (0-0.5); Lymphocytes Absolute Auto 0.98 K/mm3 (0.9-3.2); Lymphocytes Percent Auto 17.3 % (18.3-44.2); Mean Corpuscular HGB Conc 33.2 g/dl (32-36); Mean Corpuscular Hemoglobin 32.4 pg (26-34); Mean Corpuscular Volume 97.5 fl (80-100); Mean Platelet Volume 8.8 fl (7.4-10.4); Monocytes Absolute Auto 0.4 K/mm3 (0.1-0.6); Monocytes Percent Auto 6.4 % (2.6-8.5); Neutrophils Absolute Auto 4.2 K/mm3 (1.3-6.7); Platelet Count Result 209 k/mm3 (150-375); Red Blood Count 2.84 M/mm3 (4.2-5.4); Red Cell Distribution Width 12.7 % (11.5-14.5); White Blood Count 5.7 K/mm3 (4.5-10.0)
[2020-10-21 15:36] LABS: Anion Gap 4 mmol/L (8-16); Blood Urea Nitrogen 15 mg/dL (7-17); Calcium 8.7 mg/dL (8.4-10.2); Carbon Dioxide 37 mmol/L (22-30); Chloride 90 mmol/L (98-107); Estimated CRCL calculation 13 ml/min; Estimated Glomerular Filt Rate 23; Glucose 93 mg/dL (65-105); Potassium 2.9 mmol/L (3.4-5.0); Sodium 131 mmol/L (137-145)
[2020-10-21 15:39] LABS: INR 0.9; Prothrombin Time 12.4 Seconds (11.1-14.7)
[2020-10-21 15:40] LABS: Partial Thromboplastin Time 28.5 SECONDS (22.3-36.8)
[2020-10-21 15:47] LABS: Troponin I < 0.012 ng/mL (0.000-0.034)
[2020-10-21] MEDS: ASPIRIN 81 MG CHEWABLE TABLET 324 MG PO (16:07)
--- NOTE | 2020-10-21 16:52 | ED.CHESTPAIN ---
HPI - Chest Pain General Chief Complaint: Chest Pain Stated Complaint: Chest Pain, Back/Leg Pain Time Seen by Provider: 10/21/20 15:55 Source: patient Mode of arrival: ambulatory Limitations: no limitations History of Present Illness HPI narrative: Patient is 80 years old white female known to us with frequent, numerous emergency room visits for the same symptoms of chest pain radiating into her upper abdomen. Symptoms started this morning, currently feeling a little better. Patient denies any fever, chills, nausea, vomiting, sore throat, headache, back pain. Related Data Home Medications Medication Instructions Recorded Confirmed Entresto 1 tablet PO Q12H 09/01/19 07/02/20 alprazolam 0.5 mg PO TID PRN 09/01/19 07/02/20 clopidogrel 75 mg PO DAILY 09/01/19 07/02/20 hydralazine 10 mg PO TID 09/01/19 07/02/20 levothyroxine 125 mcg PO DAILY 09/01/19 07/02/20 metoprolol succinate 50 mg PO DAILY 09/01/19 07/02/20 nitroglycerin 0.4 mg SUBLINGUAL Q5M PRN 09/01/19 07/02/20 trazodone 100 mg PO HS 09/01/19 07/02/20 ferrous sulfate 325 mg PO DAILY 09/06/19 07/02/20 prednisolone acetate 1 % RIGHTEYE DAILY 09/06/19 07/02/20 oxybutynin chloride 10 mg PO DAILY 03/20/20 07/02/20 acyclovir 1,000 mg PO DAILY 05/31/20 07/02/20 sertraline 25 mg PO DAILY 06/16/20 07/02/20 furosemide 20 mg PO DAILY 07/02/20 07/02/20 Allergies Allergy/AdvReac Type Severity Reaction Status Date / Time Penicillins Allergy Unknown Rash Verified 10/21/20 15:13 Review of Systems Review of Systems: Narrative: CONSTITUTIONAL: Denies fever, chills, or sweats. EYES: Denies visual changes, redness, or discharge. ENT: Denies rhinorrhea, congestion, sore throat, or otalgia. CARDIOVASCULAR: Denies chest pain, palpitations, or edema. RESPIRATORY: Denies cough or dyspnea. GASTROINTESTINAL: Denies abdominal pain, nausea, vomiting, or diarrhea. GENITOURINARY: Denies dysuria or hematuria. SKIN: Denies rash or itching. MUSCULOSKELETAL: Denies back pain, joint pain, or myalgia. NEUROLOGIC: Denies headache, numbness, or weakness. PSYCHIATRIC: Denies anxiety or depression. [facility] Past Medical History Medical History (Updated 10/21/20 @ 17:02 by Linda Aviles MD) Chronic anemia Chronic kidney disease, stage 3 Congestive heart failure Systolic and diastolic congestive heart failure Echo 11/27 showed EF 50%. Echo 01/14/2019: EF measured at 39%. September 2018 EF was 25%. Echo 12/02/2019 EF 50-55%. Grade 1 diastolic function. Coronary artery disease With multivessel surgical revascularization with PCI at [place] October 2017. Cardiac catheterization 10/17/2018-mild preserved intra-stent luminal diameter Current use of chcf anticoagulation Depression with anxiety Detached retina Right-sided, x2. Frequent headaches GERD (gastroesophageal reflux disease) With history of esophageal stricture requiring dilatation. History of GI bleed History of rectal polyps Hyperlipidemia Hypertension Hypothyroidism TSH in November 2019 was a bit low, with normal T4. Irritable bowel syndrome Ischemic cardiomyopathy Mitral valve prolapse Myasthenia gravis Questionable history of. Obstructive sleep apnea Ocular herpes zoster History of shingles to the left eye, on chronic antiviral therapy. Paroxysmal atrial fibrillation No longer on long-term anticoagulation due to history of falls. Peripheral neuropathy Rectal polyp Restless leg syndrome Shingles Solitary rectal ulcer syndrome Stage III chronic kidney disease Surgical History Surgical History Status post appendectomy Status post bilateral hip replacements Status post bilateral knee replacements Status post breast biopsy Bilateral with benign histology. Status post carpal tunnel release Status post cataract extraction Bilateral. Status post cholecystectomy Status post laminectomy Lumbar spine. Status post LASIK surgery Status post rotator cuff repair Status post tonsillec
[2020-10-21] MEDS: ONDANSETRON HCL ODT 4 MG TABLET PO (16:58)
[2020-10-21] MEDS: MORPHINE SULFATE INJ (*CRX) 10 MG/ML AMP 6 MG IM (16:59)
[2020-10-21] MEDS: POTASSIUM CHLORIDE 20 MEQ TABLET 40 MEQ PO (17:11)
== END 2020-10-21 17:31 | disposition home or self-care (01) ==
PROVIDERS: Emergency Provider Emergency Medicine; PCP Nurse Practitioner Family
DX: R07.9 Chest pain, unspecified (principal); G89.29 Other chronic pain; E87.6 Hypokalemia; F32.9 Major depressive disorder, single episode, unspecified; I13.0 Hypertensive heart and chronic kidney disease with heart failure and stage 1 through stage 4 chronic kidney disease, or unspecified chronic kidney disease; N18.30 Chronic kidney disease, stage 3 unspecified; I50.40 Unspecified combined systolic (congestive) and diastolic (congestive) heart failure; I25.10 Atherosclerotic heart disease of native coronary artery without angina pectoris; K21.9 Gastro-esophageal reflux disease without esophagitis; Z87.19 Personal history of other diseases of the digestive system; E78.5 Hyperlipidemia, unspecified; E03.9 Hypothyroidism, unspecified; K58.9 Irritable bowel syndrome, unspecified; I25.5 Ischemic cardiomyopathy; G47.33 Obstructive sleep apnea (adult) (pediatric); I48.0 Paroxysmal atrial fibrillation; Z79.01 Long term (current) use of anticoagulants; G62.9 Polyneuropathy, unspecified; G25.81 Restless legs syndrome; Z96.653 Presence of artificial knee joint, bilateral; Z96.643 Presence of artificial hip joint, bilateral; Z98.42 Cataract extraction status, left eye; Z98.41 Cataract extraction status, right eye; I49.1 Atrial premature depolarization; R94.31 Abnormal electrocardiogram [ECG] [EKG]
CPT/HCPCS: 36415; 71045; 80048; 84484; 85025; 85610; 85730; 93005; 96372; 99284; A9270; J2270

== ENCOUNTER 2020-10-23 18:27 | Emergency (ER) | payer MEDICARE, SELFPAY ==
[2020-10-23] VITALS (11 sets, daily range): BP systolic 141–149; BP diastolic 78–84; PULSE 58–72; RESP 12–21; TEMP 35.7; O2SAT 96–100
--- NOTE | ~2020-10-23 | XR_ITS ---
EXAMINATION: XR chest 1V portable DATE: 10/23/2020 19:20 INDICATION: Chest pain. Esophageal pain. TECHNIQUE: frontal view of the chest was obtained. COMPARISON: Chest radiograph dated 10/21/2020 FINDINGS: Mild biapical pleural-parenchymal scarring. No new airspace opacities, pulmonary edema, pleural effus ion or pneumothorax. Mild cardiomegaly with coronary artery stenting along at least [address] to severe degenerative skeletal changes in the thoracic spine and bilateral shoulders. Bilateral d istal clavicle resections. IMPRESSION: 1. Mild cardiomegaly. No acute cardiopulmonary disease. Reviewed, dictated and finalized at location A. TRY SERVICE TECHNICIAN
--- NOTE | 2020-10-23 18:34 | ECG_ITS ---
Measurements Intervals [place] Rate: 59 P: 106 SC: 158 QRS: -54 QRSD: 88 T: 91 QT: 365 QTc: 363 Interpretive Statements SINUS BRADYCARDIA LEFT AXIS DEVIATION ANTEROSEPTAL INFARCT, AGE INDETERMINATE BORDERLINE ST-T WAVE ABNORMALITY- INF/HIGH LAT LEADS BASELINE ARTIFACT- I, II, AVR, AVL, AVF ABNORMAL ECG Electronically Signed On 10-23-2020 21:10:07 MARKETING PROJECT COORDINATOR by Marlon Joe D.O.
--- NOTE | 2020-10-23 18:52 | ED.GENADULT ---
HPI - General Adult General Chief complaint: Abdominal Pain Stated complaint: Patient states here for same thing as yesterday Time Seen by Provider: 10/23/20 18:32 Source: patient Mode of arrival: ambulatory Limitations: no limitations History of Present Illness HPI narrative: This is a 80 year old female that presents to the ER for chest pain that is burning in nature. Reports it started this morning and has been constant. She took Tylenol at home with little relief. Reports the pain radiates into her abdomen. Denies fever, cough, shortness of breath, vomiting, or dysuria. Related Data Home Medications Medication Instructions Recorded Confirmed Entresto 1 tablet PO Q12H 09/01/19 07/02/20 alprazolam 0.5 mg PO TID PRN 09/01/19 07/02/20 clopidogrel 75 mg PO DAILY 09/01/19 07/02/20 hydralazine 10 mg PO TID 09/01/19 07/02/20 levothyroxine 125 mcg PO DAILY 09/01/19 07/02/20 metoprolol succinate 50 mg PO DAILY 09/01/19 07/02/20 nitroglycerin 0.4 mg SUBLINGUAL Q5M PRN 09/01/19 07/02/20 trazodone 100 mg PO HS 09/01/19 07/02/20 ferrous sulfate 325 mg PO DAILY 09/06/19 07/02/20 prednisolone acetate 1 % RIGHTEYE DAILY 09/06/19 07/02/20 oxybutynin chloride 10 mg PO DAILY 03/20/20 07/02/20 acyclovir 1,000 mg PO DAILY 05/31/20 07/02/20 sertraline 25 mg PO DAILY 06/16/20 07/02/20 furosemide 20 mg PO DAILY 07/02/20 07/02/20 Allergies Allergy/AdvReac Type Severity Reaction Status Date / Time Penicillins Allergy Unknown Rash Verified 10/23/20 18:52 Review of Systems Review of Systems: Narrative: CONSTITUTIONAL: Denies fever CARDIOVASCULAR: Reports chest pain RESPIRATORY: Denies cough or dyspnea. GASTROINTESTINAL: Reports nausea. Denies abdominal pain, vomiting, or diarrhea. GENITOURINARY: Denies dysuria All systems reviewed & are unremarkable except as noted in HPI and below PMFSH Past Medical History Medical History (Updated 10/23/20 @ 20:38 by Valeria Welsh PA-C) Chronic anemia Chronic kidney disease, stage 3 Congestive heart failure Systolic and diastolic congestive heart failure Echo 11/27 showed EF 50%. Echo 01/14/2019: EF measured at 39%. September 2018 EF was 25%. Echo 12/02/2019 EF 50-55%. Grade 1 diastolic function. Coronary artery disease With multivessel surgical revascularization with PCI at [place] October 2017. Cardiac catheterization 10/17/2018-mild preserved intra-stent luminal diameter Current use of manager intermediate anticoagulation Depression with anxiety Detached retina Right-sided, x2. Frequent headaches GERD (gastroesophageal reflux disease) With history of esophageal stricture requiring dilatation. History of GI bleed History of rectal polyps Hyperlipidemia Hypertension Hypothyroidism TSH in November 2019 was a bit low, with normal T4. Irritable bowel syndrome Ischemic cardiomyopathy Mitral valve prolapse Myasthenia gravis Questionable history of. Obstructive sleep apnea Ocular herpes zoster History of shingles to the left eye, on chronic antiviral therapy. Paroxysmal atrial fibrillation No longer on long-term anticoagulation due to history of falls. Peripheral neuropathy Rectal polyp Restless leg syndrome Shingles Solitary rectal ulcer syndrome Stage III chronic kidney disease Surgical History Surgical History Status post appendectomy Status post bilateral hip replacements Status post bilateral knee replacements Status post breast biopsy Bilateral with benign histology. Status post carpal tunnel release Status post cataract extraction Bilateral. Status post cholecystectomy Status post laminectomy Lumbar spine. Status post LASIK surgery Status post rotator cuff repair Status post tonsillectomy Family History Family History Mother Cerebrovascular accident Diabetes mellitus Hypertension Sibling Cerebrovascular accident Other Acute myocardial infarction Social History S
--- NOTE | 2020-10-23 19:04 | PC.NURSE ---
Attempt x3 for IV initiation unsuccessful per this RN.
--- NOTE | 2020-10-23 19:06 | PC.NURSE ---
Report to MODESTO Branham, to continue care.
[2020-10-23] MEDS: BELLADONNA ALK/PHENOB ELIX 10 ML, MAG HYDROX/ALUMINUM HYD/SIMETH 30 ML, LIDOCAINE HCL 2... PO (19:20)
[2020-10-23] MEDS: ONDANSETRON INJ 4 MG/2 ML VIAL IV PUSH (19:56)
[2020-10-23] MEDS: LORazepam INJ (*CRX) 2 MG/ML VIAL 0.5 MG IV PUSH (19:56)
[2020-10-23] MEDS: FAMOTIDINE 20 MG/2 ML VIAL IV PUSH (19:57)
[2020-10-23 20:12] LABS: Basophils Percent Auto 0.4 % (0.2-1.2); Eosinophils Percent Auto 0.7 % (0-4.4); Hematocrit 25.5 % (37.0-47.0); Hemoglobin 8.2 g/dL (12.0-15.0); Immature Granulocyte Absolute 0.03 K/mm3 (0.00-0.031); Immature Granulocyte Percent A 0.7 % (0-0.5); Lymphocytes Absolute Auto 0.99 K/mm3 (0.9-3.2); Mean Corpuscular HGB Conc 32.2 g/dl (32-36); Mean Corpuscular Hemoglobin 31.9 pg (26-34); Mean Corpuscular Volume 99.2 fl (80-100); Mean Platelet Volume 8.9 fl (7.4-10.4); Monocytes Absolute Auto 0.3 K/mm3 (0.1-0.6); Monocytes Percent Auto 7.6 % (2.6-8.5); Neutrophils Absolute Auto 3.1 K/mm3 (1.3-6.7); Neutrophils Percent Auto 68.6 % (45.5-73.1); Platelet Count Result 197 k/mm3 (150-375); Red Blood Count 2.57 M/mm3 (4.2-5.4); Red Cell Distribution Width 12.8 % (11.5-14.5); White Blood Count 4.5 K/mm3 (4.5-10.0)
[2020-10-23 20:22] LABS: INR 0.9; Prothrombin Time 12.8 Seconds (11.1-14.7)
[2020-10-23 20:23] LABS: Alanine Aminotransferase 25 U/L (4-35); Albumin Level 3.2 g/dL (3.5-5.1); Alkaline Phosphatase 79 U/L (38-126); Anion Gap 0 mmol/L (8-16); Aspartate Amino Transferase 49 U/L (14-36); Bilirubin,Total 0.2 mg/dL (0.2-1.3); Blood Urea Nitrogen 18 mg/dL (7-17); Calcium 8.4 mg/dL (8.4-10.2); Carbon Dioxide 36 mmol/L (22-30); Chloride 94 mmol/L (98-107); Estimated CRCL calculation 13 ml/min; Estimated Glomerular Filt Rate 21; Glucose 78 mg/dL (65-105); Lipase 327 U/L (23-300); Partial Thromboplastin Time 29.4 SECONDS (22.3-36.8); Potassium 3.8 mmol/L (3.4-5.0); Sodium 130 mmol/L (137-145)
[2020-10-23 20:34] LABS: Troponin I < 0.012 ng/mL (0.000-0.034)
== END 2020-10-23 20:58 | disposition home or self-care (01) ==
PROVIDERS: Physician Assistant; Emergency Provider Emergency Medicine; PCP Nurse Practitioner Family
DX: R07.89 Other chest pain (principal); I13.0 Hypertensive heart and chronic kidney disease with heart failure and stage 1 through stage 4 chronic kidney disease, or unspecified chronic kidney disease; N18.30 Chronic kidney disease, stage 3 unspecified; I50.40 Unspecified combined systolic (congestive) and diastolic (congestive) heart failure; I25.10 Atherosclerotic heart disease of native coronary artery without angina pectoris; K21.9 Gastro-esophageal reflux disease without esophagitis; Z87.19 Personal history of other diseases of the digestive system; E78.5 Hyperlipidemia, unspecified; E03.9 Hypothyroidism, unspecified; K58.9 Irritable bowel syndrome, unspecified; I25.5 Ischemic cardiomyopathy; G47.33 Obstructive sleep apnea (adult) (pediatric); I48.0 Paroxysmal atrial fibrillation; F41.8 Other specified anxiety disorders; Z79.01 Long term (current) use of anticoagulants; G62.9 Polyneuropathy, unspecified; G25.81 Restless legs syndrome; Z96.643 Presence of artificial hip joint, bilateral; Z96.653 Presence of artificial knee joint, bilateral; Z98.41 Cataract extraction status, right eye
CPT/HCPCS: 36415; 71045; 80053; 83690; 84484; 85025; 85610; 85730; 93005; 96374; 96375; 99284; A9270; J2060; J2405

== ENCOUNTER 2020-10-25 12:55 | Emergency (ER) | payer MEDICARE, SELFPAY ==
--- NOTE | ~2020-10-25 | XR_ITS ---
EXAMINATION: XR hip LT 2V w AP pelvis EXAM DATE: 10/25/2020 13:36 INDICATION: Initial encounter following injury, with pain of the pelvis, left hip. TECHNIQUE: Left hip frontal, 'frog leg' projections for interpretation. Frontal projection pelvis. C omparison is made to prior examination from 07/01/2020. FINDINGS: There are bilateral hip replacements. The hardware is in expected position. Chronic lucency with sclerotic margins through portions of the left greater tuberosity, unchanged. Numerous phleboli ths. No evidence of pelvic or left hip acute fracture. Advanced lower lumbar spondylosis. There is no significant interval change. IMPRESSION: Intact hip replacements. Reviewed, dictated and finalized at location A. ER WORKER IMPRESSION: Intact hip replacements.
--- NOTE | ~2020-10-25 | CT_ITS ---
EXAMINATION: CT brain wo con EXAM DATE: 10/25/2020 13:39 INDICATION: Fall. Head injury. TECHNIQUE: Spiral CT of the head was performed without contrast. Axial, coronal and sagittal images were reviewed. The dose-length product (DLP) for this examination was 605.33 mGy-cm. The exposure w as tailored according to patient size, and iterative reconstruction (ASIR) was used as additional dos e reduction technique. Comparison is made to prior examination from 12/01/2019. FINDINGS: There is no acute intraparenchymal hemorrhage. No evidence of intraparenchymal brain mass lesion. No evidence of acute infarction. Please note that initial head CT has limited sensitivity f or small or acute infarctions. There is mild periventricular and subcortical hypodensity, nonspecific but probably related to small vessel ischemic disease. There is mild prominence of the sulci and v entricles related to cerebral atrophy. There is intracranial carotid arteriosclerosis. There are n o extra-axial collections. There is no mass effect or midline shift. Patient has had right-sided oc ular lens surgery. Small left posterior scalp contusion. The visualized sinuses and mastoid air cell s are well aerated. IMPRESSION: 1. Small left posterior scalp contusion. 2. Chronic age related findings. Reviewed, dictated and finalized at location A. LER TENDER
[2020-10-25 13:10] VITALS: BP 114/69; BP 98/53; PULSE 57; PULSE 58; RESP 14; RESP 16; TEMP 36.1; O2SAT 93; O2SAT 99
--- NOTE | 2020-10-25 13:10 | PC.NURSE ---
patient brought back to ED room H2 after ground level fall at her home. c/o left hip pain. also has small abrasion on the left side of her head. states incident occurred today around 1230. patient is seen in this ED frequently. alert. oriented. assessments documented.
[2020-10-25 13:11] VITALS: PULSE 57; RESP 15; O2SAT 92
[2020-10-25 13:15] VITALS: PULSE 56; RESP 23; O2SAT 96
[2020-10-25 13:16] VITALS: BP 98/58; RESP 23; O2SAT 94
--- NOTE | 2020-10-25 13:34 | PC.NURSE ---
patient has pain medication ordered. in xray now.
[2020-10-25] MEDS: HYDROcodone/acetaminophen (*CRX) 5-325 MG TABLET 1 TAB PO (13:46)
--- NOTE | 2020-10-25 13:50 | PC.NURSE ---
patient back from radiology. pain medication given. updated on current treatment plan and expected wait time. waiting for xray results. at bedside.
--- NOTE | 2020-10-25 14:09 | ED.GENADULT ---
HPI - General Adult General Chief complaint: Fall Stated complaint: FALL Time Seen by Provider: 10/25/20 13:11 History of Present Illness HPI narrative: Patient is an 80-year-old female who presents to the ER status post fall. Patient was hanging on the car when she fell to the ground. She fell onto her left side striking her hip and then also striking her head. She did not lose consciousness but felt she was little woozy. He got her to her bed but she reported she was having a lot of pain so they opted to come here to be evaluated. Patient has been able to transfer from wheelchair to bed. She has no reports of dizziness/change in vision/headache. She reports reports pain mainly over the left hip that she has had surgically replaced. No numbness or tingling to lower extremity. No shortening or other deformity. Related Data Home Medications Medication Instructions Recorded Confirmed Entresto 1 tablet PO Q12H 09/01/19 07/02/20 alprazolam 0.5 mg PO TID PRN 09/01/19 07/02/20 clopidogrel 75 mg PO DAILY 09/01/19 07/02/20 hydralazine 10 mg PO TID 09/01/19 07/02/20 levothyroxine 125 mcg PO DAILY 09/01/19 07/02/20 metoprolol succinate 50 mg PO DAILY 09/01/19 07/02/20 nitroglycerin 0.4 mg SUBLINGUAL Q5M PRN 09/01/19 07/02/20 trazodone 100 mg PO HS 09/01/19 07/02/20 ferrous sulfate 325 mg PO DAILY 09/06/19 07/02/20 prednisolone acetate 1 % RIGHTEYE DAILY 09/06/19 07/02/20 oxybutynin chloride 10 mg PO DAILY 03/20/20 07/02/20 acyclovir 1,000 mg PO DAILY 05/31/20 07/02/20 sertraline 25 mg PO DAILY 06/16/20 07/02/20 furosemide 20 mg PO DAILY 07/02/20 07/02/20 Allergies Allergy/AdvReac Type Severity Reaction Status Date / Time Penicillins Allergy Unknown Rash Verified 10/23/20 18:52 Review of Systems Review of Systems: All systems reviewed & are unremarkable except as noted in HPI and below Constitutional: Constitutional: Denies chills, Denies fever(s) and Denies weakness Cardiovascular: Cardiovascular: Denies chest pain and Denies radiating jaw, neck or arm pain Respiratory: Respiratory: Denies cough and Denies dyspnea Gastrointestinal: Gastrointestinal: Denies abdominal pain, Denies heartburn, Denies nausea and Denies vomiting Musculoskeletal: Comments: Left hip pain with bruising Neurologic: Denies confusion, Reports headache(s), Denies focal weakness and Denies numbness PMF Past Medical History Medical History (Updated 10/25/20 @ 14:13 by Pablito De Souza MD) Chronic anemia Chronic kidney disease, stage 3 Congestive heart failure Systolic and diastolic congestive heart failure Echo 11/27 showed EF 50%. Echo 01/14/2019: EF measured at 39%. September 2018 EF was 25%. Echo 12/02/2019 EF 50-55%. Grade 1 diastolic function. Coronary artery disease With multivessel surgical revascularization with PCI at [place] October 2017. 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 Frequent headaches GERD (gastroesophageal reflux disease) With history of esophageal stricture requiring dilatation. History of GI bleed History of rectal polyps Hyperlipidemia Hypertension Hypothyroidism TSH in November 2019 was a bit low, with normal T4. Irritable bowel syndrome Ischemic cardiomyopathy Mitral valve prolapse Myasthenia gravis Questionable history of. Obstructive sleep apnea Ocular herpes zoster History of shingles to the left eye, on chronic antiviral therapy. Paroxysmal atrial fibrillation No longer on long-term anticoagulation due to history of falls. Peripheral neuropathy Rectal polyp Restless leg syndrome Shingles Solitary rectal ulcer syndrome Stage III chronic kidney disease Surgical History Surgical History Status post appendectomy Status post bilateral hip replacements Status post bilateral knee replacements Status post br
--- NOTE | 2020-10-25 15:31 | PC.NURSE ---
patient still sitting in room. wants us to take her out to wait in the waiting area. is not back yet. patient and all of her belongings taken to ED waiting area via wheelchair.
== END 2020-10-25 15:32 | disposition home or self-care (01) ==
PROVIDERS: Emergency Provider Emergency Medicine; PCP Nurse Practitioner Family
DX: S00.01XA Abrasion of scalp, initial encounter (principal); S70.02XA Contusion of left hip, initial encounter; I13.0 Hypertensive heart and chronic kidney disease with heart failure and stage 1 through stage 4 chronic kidney disease, or unspecified chronic kidney disease; N18.30 Chronic kidney disease, stage 3 unspecified; I50.40 Unspecified combined systolic (congestive) and diastolic (congestive) heart failure; I25.10 Atherosclerotic heart disease of native coronary artery without angina pectoris; K21.9 Gastro-esophageal reflux disease without esophagitis; Z87.19 Personal history of other diseases of the digestive system; R78.5 Finding of other psychotropic drug in blood; E03.9 Hypothyroidism, unspecified; K58.9 Irritable bowel syndrome, unspecified; I25.5 Ischemic cardiomyopathy; G47.33 Obstructive sleep apnea (adult) (pediatric); F41.8 Other specified anxiety disorders; Z79.01 Long term (current) use of anticoagulants; G62.9 Polyneuropathy, unspecified; G25.81 Restless legs syndrome; Z96.643 Presence of artificial hip joint, bilateral; Z96.653 Presence of artificial knee joint, bilateral; Z98.41 Cataract extraction status, right eye; W17.89XA Other fall from one level to another, initial encounter
CPT/HCPCS: 70450; 73502; 99284; A9270

== ENCOUNTER 2020-10-27 08:28 | Observation (INO) | payer MEDICARE, SELFPAY ==
[2020-10-27] VITALS (25 sets, daily range): BP systolic 100–153; BP diastolic 56–90; PULSE 48–74; RESP 12–25; TEMP 36.1–36.9; O2SAT 84–100; BMI 16.0
--- NOTE | ~2020-10-27 | US_ITS ---
EXAMINATION: US renal BI DATE: 10/27/2020 15:46 INDICATION: Worsening renal failure TECHNIQUE: Multiple grayscale and Doppler ultrasound images of the kidneys were obtained. COMPARISON: CT, 09/02/2020 FINDINGS: The right kidney measures 8.2 x 4.8 x 3.5 cm. The left kidney measures 6.9 x 4.1 x 3.4 cm. The kidneys demonstrate increased parenchymal echogenicity. There are multiple small cysts of the kid neys. There is no hydronephrosis. The bladder is normal. IMPRESSION: 1. Medical renal disease and mild renal atrophy. Reviewed, dictated and finalized at location A. TECH
--- NOTE | ~2020-10-27 | XR_ITS ---
EXAMINATION: XR hip BI 2V w AP pelvis DATE: 10/27/2020 15:50 INDICATION: Unable to ambulate post fall 2 days prior TECHNIQUE: Anteroposterior view of the pelvis and anteroposterior and frog-leg lateral views of the l eft hip and anteroposterior and frog-leg lateral views of the right hip and were obtained. COMPARISON: 10/25/2020 and sacral radiographs dated 06/21/2020 FINDINGS: Again seen are bilateral revision total hip arthroplasties with intertrochanteric and subtrochanteric cerclage wires on both the left and right. Alignment remains near-anatomic. No acute fractures ident ified. Again seen is an essentially nondisplaced chronic nonunited fracture of the left greater troch anter. Small residual lucency along the medial cortex at the chronic healed left subtrochanteric frac ture line. Severe lower lumbar spondylosis. Moderate bilateral sacroiliac osteoarthritis. Large bone island at the left iliac crest. Numerous phleboliths in the pelvis. Enthesopathic ossification is at the left ischial tuberosity origin of the proximal hamstring tendons. IMPRESSION: 1. Bilateral revision total hip arthroplasties which remain in near anatomic alignment with no acute osseous abnormality. 2. No significant change in a nondisplaced chronic nonunited avulsion fracture of the left greater tr ochanter. 3. Severe lumbar spondylosis. Reviewed, dictated and finalized at location A. CARPENTER MECHANIC IMPRESSION: 1. Bilateral revision total hip arthroplasties which remain in near anatomic al ignment with no acute osseous abnormality. 2. No significant change in a nondisplaced chronic nonunited avulsion fracture of the left greater trochanter. 3. Severe lumbar spondylosis.
--- NOTE | ~2020-10-27 | CT_ITS ---
EXAMINATION: CT brain wo con DATE: 10/28/2020 14:46 INDICATION: Fall. Confusion. TECHNIQUE: Computed tomography (CT) of the head was performed without intravenous contrast. Sagittal and coronal reconstructions were performed. The mA was adjusted according to patient size. Iterative reconstruction technique was employed. The dose-length product was 605.33 mGy-cm. COMPARISON: head CT dated 10/25/2020 FINDINGS: No fracture. No acute intracranial hemorrhage, acute infarction or abnormal extra axial fluid collect ion. There is mild scattered white matter hypoattenuation consistent with chronic small vessel ischem ic disease. Symmetric prominence of the sulci consistent with mild age-appropriate diffuse cerebral v olume loss. Ventricles are normal and symmetric. No mass/mass effect. Changes of bilateral intraocul ar lens replacement. The orbits and mastoid air cells are normal. Mild mucosal thickening in the left ethmoid and right maxillary sinuses. IMPRESSION: 1. No fracture or acute intracranial process. 2. Stable appearance of age-related changes including mild diffuse volume loss and mild scattered whi te matter hypoattenuation consistent with chronic small vessel ischemic disease. Reviewed, dictated and finalized at location A. MAKER IMPRESSION: 1. No fracture or acute intracranial process. 2. Stable appearance of age-related changes including mild diffuse volume loss and mild scattered white matter hypoattenuation consistent with chronic small v essel ischemic disease.
--- NOTE | 2020-10-27 08:33 | ED.GENADULT ---
HPI - General Adult General Chief complaint: Weakness Stated complaint: WEAKNESS Time Seen by Provider: 10/27/20 08:29 History of Present Illness HPI narrative: Patient is an 80-year-old female who presents ER with hip pain and difficulty walking. Patient was seen in the ER couple days ago after a fall from standing. She had x-rays of her hip and a CT of her brain. Imaging was unremarkable. Patient is able to ambulate so she is discharged home. Patient reports she has persistent pain in her left hip where there is a hematoma. It causes her to be unsteady when she walks. No additional falls today. reports due to patient's weakness he is concerned that he is not can be able to continue to help her walk around and is concerned that she may injure herself. They report no other change in symptoms. When asked they do report dark black stools but patient is on iron for anemia. Related Data Home Medications Medication Instructions Recorded Confirmed Entresto 1 tablet PO Q12H 09/01/19 07/02/20 alprazolam 0.5 mg PO TID PRN 09/01/19 07/02/20 clopidogrel 75 mg PO DAILY 09/01/19 07/02/20 hydralazine 10 mg PO TID 09/01/19 07/02/20 levothyroxine 125 mcg PO DAILY 09/01/19 07/02/20 metoprolol succinate 50 mg PO DAILY 09/01/19 07/02/20 nitroglycerin 0.4 mg SUBLINGUAL Q5M PRN 09/01/19 07/02/20 trazodone 100 mg PO HS 09/01/19 07/02/20 ferrous sulfate 325 mg PO DAILY 09/06/19 07/02/20 prednisolone acetate 1 % RIGHTEYE DAILY 09/06/19 07/02/20 oxybutynin chloride 10 mg PO DAILY 03/20/20 07/02/20 acyclovir 1,000 mg PO DAILY 05/31/20 07/02/20 sertraline 25 mg PO DAILY 06/16/20 07/02/20 furosemide 20 mg PO DAILY 07/02/20 07/02/20 Allergies Allergy/AdvReac Type Severity Reaction Status Date / Time Penicillins Allergy Unknown Rash Verified 10/27/20 09:06 Review of Systems Review of Systems: All systems reviewed & are unremarkable except as noted in HPI and below Constitutional: Constitutional: Denies chills, Denies fever(s) and Reports weakness ENT: Denies nasal congestion and Denies sore throat Cardiovascular: Cardiovascular: Denies chest pain, Denies rapid heart rate and Denies radiating jaw, neck or arm pain Gastrointestinal: Gastrointestinal: Denies abdominal pain, Denies nausea and Denies vomiting Comments: Black stools Musculoskeletal: Musculoskeletal: Reports arthralgias and Denies joint swelling Integumentary/Breasts: Comments: Bruising left hip PMFSH Past Medical History Medical History (Updated 10/27/20 @ 09:58 by Pablito De Souza MD) Chronic anemia Chronic kidney disease, stage 3 Congestive heart failure Systolic and diastolic congestive heart failure Echo 11/27 showed EF 50%. Echo 01/14/2019: EF measured at 39%. September 2018 EF was 25%. Echo 12/02/2019 EF 50-55%. Grade 1 diastolic function. Coronary artery disease With multivessel surgical revascularization with PCI at [place] October 2017. 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 Frequent headaches GERD (gastroesophageal reflux disease) With history of esophageal stricture requiring dilatation. History of GI bleed History of rectal polyps Hyperlipidemia Hypertension Hypothyroidism TSH in November 2019 was a bit low, with normal T4. Irritable bowel syndrome Ischemic cardiomyopathy Mitral valve prolapse Myasthenia gravis Questionable history of. Obstructive sleep apnea Ocular herpes zoster History of shingles to the left eye, on chronic antiviral therapy. Paroxysmal atrial fibrillation No longer on long-term anticoagulation due to history of falls. Peripheral neuropathy Rectal polyp Restless leg syndrome Shingles Solitary rectal ulcer syndrome Stage III chronic kidney disease Surgical History Surgical History Status post appendectomy Status post bilateral
[2020-10-27] MEDS: ACETAMINOPHEN 325 MG TABLET 650 MG PO (09:04)
[2020-10-27 09:11] LABS: Basophils Percent Auto 0.2 % (0.2-1.2); Eosinophils Absolute Auto 0.1 K/mm3 (0-0.3); Eosinophils Percent Auto 1.4 % (0-4.4); Hematocrit 22.1 % (37.0-47.0); Hemoglobin 7.2 g/dL (12.0-15.0); Immature Granulocyte Absolute 0.07 K/mm3 (0.00-0.031); Immature Granulocyte Percent A 1.2 % (0-0.5); Lymphocytes Absolute Auto 0.69 K/mm3 (0.9-3.2); Lymphocytes Percent Auto 11.7 % (18.3-44.2); Mean Corpuscular HGB Conc 32.6 g/dl (32-36); Mean Corpuscular Hemoglobin 32.3 pg (26-34); Mean Corpuscular Volume 99.1 fl (80-100); Mean Platelet Volume 9.7 fl (7.4-10.4); Monocytes Absolute Auto 0.4 K/mm3 (0.1-0.6); Monocytes Percent Auto 6.4 % (2.6-8.5); Neutrophils Absolute Auto 4.7 K/mm3 (1.3-6.7); Neutrophils Percent Auto 79.1 % (45.5-73.1); Platelet Count Result 151 k/mm3 (150-375); Red Blood Count 2.23 M/mm3 (4.2-5.4); Red Cell Distribution Width 13.2 % (11.5-14.5); White Blood Count 5.9 K/mm3 (4.5-10.0)
[2020-10-27 09:23] LABS: Anion Gap 1 mmol/L (8-16); Blood Urea Nitrogen 27 mg/dL (7-17); Calcium 7.7 mg/dL (8.4-10.2); Carbon Dioxide 28 mmol/L (22-30); Chloride 100 mmol/L (98-107); Estimated CRCL calculation 11 ml/min; Estimated Glomerular Filt Rate 18; Glucose 71 mg/dL (65-105); Potassium 4.8 mmol/L (3.4-5.0); Sodium 129 mmol/L (137-145)
--- NOTE | 2020-10-27 09:42 | PC.NURSE ---
Pt able to ambulate to the bathroom to collect urine sample with RN assisting
[2020-10-27 09:51] LABS: Add Urine Microscopic? YES; Appearance Urine Clear (Clear); Bacteria Urine Trace /hpf; Bilirubin Urine Negative (Negative); Blood Urine Negative (Negative); Color Urine Yellow (Yellow); Glucose Urine UA Negative (Negative); Ketones Urine Trace mg/dL (Negative); Leukocyte Esterase Ur 2+ LEU/UL (Negative); Mucus Urine Heavy /lpf; Nitrate Urine Negative (Negative); Protein Urine Negative (Negative); RBC Urine 0-2 /hpf (0-2)
[2020-10-27] MEDS: TUBING, BLOOD PLUM PUMP TUBING 1 EACH XX (12:09)
[2020-10-27] MEDS: SODIUM CHLORIDE 0.9% IV 250 ML 30 ML IV CONT (12:09)
--- NOTE | 2020-10-27 13:08 | PM.IMHP ---
H&P: HPI History of Present Illness Date/Time: 10/27/20 13:08 Chief Complaint: Weakness and left leg pain Narrative: Dhara Harry is a 80 year old female Lives with her . The patient has had multiple visits to ER and multiple admissions as well. The patient came to the emergency room on the 10/25/2020 were the patient had fallen according to the notes she was hanging onto the car she felt ground. She fell onto her left side tried to her hip and striking her head. She did not lose consciousness. Patient has 2 abrasions to the back of her head and hematoma to her left hip. Patient stated she was having difficulty walking and she feels weak. The patient had a CT of the brain performed on the and it showed a small left posterior scalp contusion and chronic age-related findings. She does not have any neurological deficits at this time she is hard of hearing but that is typical for her she had hearing aids a 1 time but no longer resume. She is answering questions appropriately I did find that the patient repeats herself several times. The patient had a x-ray of the hip left two view with AP pelvis on 10/25/2020 and it shows intact hip replacements. The patient had been in the emergency room on 10/23/2020 for chest pain however it looks like the patient took some Tylenol and had some relief and went home at that time. She had previously been here in the emergency room on 10/15/2020 with chest pain as well. She had been here on 10/14/2020 as well for chest pain. She had also been here in the emergency room on 10/08/2020 for complaints of chest pain. She had multiple visits to ER and multiple admissions. The patient stated that she is having difficulty walking and feels very weak. She complains of her left hip hurting. She has hematoma to the left hip and multiple bruises to both of her arms. The patient stated that they were considering foundation assistant living as the patient feels that she cannot safely live in OR home anymore. She is having difficulty walking. The patient stated that she is not actively bleeding from here but she does have dark stools from taking iron. Her H&H is 7.2 and 22.1. This is changed from 4 days ago read H&H was 8.2 and 25.5. On 10/21/2020 her H&H was 19.2 and 27.7. Sodium 129 and had been 130 and 131. creatinine today is 2.6 were 4 days ago was 2.2 . six days ago 2.1. Her baseline appears to be somewhere between 1.6 and 2.1. The patient is currently getting 1 unit packed red blood cells. No anemia studies were performed at this time. No occult blood was obtained the patient just stated that she has dark stools but she is taking an aspirin and iron. nursing coordinator has been consulted. Patient is being admitted in observation services on 10/27/2020. Review of Systems Review of Systems: All systems reviewed & are unremarkable except as noted in HPI and below Constitutional: Constitutional: Reports as per HPI and Reports no additional constitutional complaints Eyes: Eyes: Reports as per HPI and Reports no additional eye complaints ENT: Reports system reviewed and no additional complaints, except as documented and Reports Normal hearing present Cardiovascular: Cardiovascular: Reports no additional cardiovascular complaints Respiratory: Respiratory: Reports no additional respiratory complaints and Reports no additional respiratory complaints Gastrointestinal: Gastrointestinal: Reports as per HPI and Reports no additional gastrointestinal complaints Musculoskeletal: Musculoskeletal: Reports no additional musculoskeletal complaints Integumentary/Breasts: Skin/Breast: Reports system reviewed and no additional complaints, except as docu and Reports as per HPI Neurologic: Reports system reviewed and no additional complaints, except as documented, Reports as per HPI and Reports Normal hearing present Psychiatric: Psychiatric: Reports no additional psychiatric complaints and Reports as per HPI Endocrine:
--- NOTE | 2020-10-27 15:19 | ADMGEN ---
This patient, Dhara Harry, was admitted to Medical Room 345-01. Patient/family oriented to hospital policies and general routines including ID bracelet, bed and alarms, visiting hours, pain management, procedures, bathroom and other care routines, personal items, smoking policy, room service/diet, and visiting hours. Information on how to activate the Rapid Response Team has been discussed. Patient/Family are encouraged to report perceived risks to care and to ask questions if they do not understand what they are told or what they should do.
[2020-10-27 15:20] LABS: Hematocrit 28.3 % (37.0-47.0); Hemoglobin 9.6 g/dL (12.0-15.0)
[2020-10-27 15:31] LABS: Alanine Aminotransferase 32 U/L (4-35); Albumin Level 3.6 g/dL (3.5-5.1); Alkaline Phosphatase 65 U/L (38-126); Aspartate Amino Transferase 54 U/L (14-36); Bilirubin,Total 0.8 mg/dL (0.2-1.3); Creatine Kinase 364 U/L (30-135); Magnesium 2.3 mg/dL (1.6-2.3)
[2020-10-27 15:35] LABS: Complement C3 58 mg/dL (88-165)
[2020-10-27 15:56] LABS: Erythrocyte Sedimentation Rate 22 mm/hr (0-20)
[2020-10-27 16:09] LABS: HIV 1/2 Ab P24 Ag Result Negative (Negative)
--- NOTE | 2020-10-27 17:02 | PM.CNNEP ---
Assessment and Plan Assessment and plan (1) Chronic kidney disease, stage 3b: Code(s): N18.32 - Chronic kidney disease, stage 3b Status: Acute Assessment and Plan: Eventually in has chronic kidney disease stage IIIB. Her GFR generally ranges in the low 30s and occasionally dips into the high 20s. Most likely this is due to vascular disease and hypertension. She has not been evaluated for this in the past. Will see what her ultrasound shows. Serology has been ordered. Will check immunofixation as well. (2) Acute kidney failure, unspecified: Code(s): N17.9 - Acute kidney failure, unspecified Status: Acute Assessment and Plan: The patient has acute kidney injury as well. It is possibly she is not eating very well and she is on diuretics so she could be dry. Her urine shows trace ketones suggesting poor intake. Chest x-ray does not show any infiltrates. We should probably give her little bit of IV fluid. Obstruction is always a possibility so we will check a renal ultrasound. The patient has pyuria, But she only has 7-9 white cells per high-power field. A culture has been ordered. Infection could be playing a role but she does not look toxic. Rhabdomyolysis is a possibility as well so will get a CPK. If her ejection fraction is worse than pre renal azotemia caused by congestive heart failure would be a possibility as well. She could also just be dehydrated. Glomerulonephritis is less likely but possible. She does not have much protein or any blood in the urine. At this point will get urine electrolytes and eosinophils. Will get immunofixation. Will give her a little bit IV fluid if the creatinine isn't better by morning. (3) Hyponatremia: Code(s): E87.1 - Hypo-osmolality and hyponatremia Status: Acute Assessment and Plan: Sodium level is low. This is chronic. It has been consistently low for a year and intermittently low for couple of years. She is on diuretics, sertraline, each of which could cause low sodium. Will check a TSH and a cortisol as well. Of course she will get the serum protein electrophoresis as above. Will check serum and urine osmolality as well. Her sodium level is stable right now. Will just keep an eye on this for now without initiating any particular therapy until we find out more about it. (4) CAD (coronary artery disease): Code(s): I25.10 - Atherosclerotic heart disease of [place] coronary artery without angina pectoris Status: Acute (5) Congestive heart failure: Qualifiers: Heart failure chronicity: chronic Heart failure type: unspecified Qualified Code(s): I50.9 - Heart failure, unspecified Code(s): I50.9 - Heart failure, unspecified Status: Chronic Assessment and Plan: Her heart failure looks well compensated with a clear chest x-ray. (6) Hypertension: Qualifiers: Hypertension type: unspecified Qualified Code(s): I10 - Essential (primary) hypertension Code(s): I10 - Essential (primary) hypertension Status: Chronic Assessment and Plan: Her blood pressure is well controlled (7) Orthostatic hypotension: Code(s): I95.1 - Orthostatic hypotension Status: Resolved Assessment and Plan: Will follow her blood pressure readings History of Present Illness Reason for Consult Consult date: 10/28/20 Chief Complaint Chief complaint: acute on chronic kidney failure/anemia/falls History of Present Illness Narrative: Eventually in a is a very pleasant 80-year-old lady who has an elevated creatinine. She has multiple prior medical problems including systolic and diastolic injection for heart failure, with an ejection fraction of 50%, diastolic dysfunction, coronary artery disease status post coronary artery bypass graft in 2018 and a stent in 2019, paroxysmal atrial fibrillation, hypertension, hyperlipidemia, sleep apnea, restless legs, anemia, frequent falls
[2020-10-27 18:19] LABS: Hepatitis B Surface Antigen Negative (Negative)
[2020-10-27 18:24] LABS: Hepatitis B Core IgM Result Negative (Negative)
[2020-10-27 18:37] LABS: Hepatitis B Surface Anti Res Negative; Hepatitis C Virus Antibody Negative (Negative)
[2020-10-27 19:34] LABS: Thyroid Stimulating Hormone > 100.000 uIU/mL (0.465-4.680)
[2020-10-27] MEDS: HYOSCYAMINE SULFATE 0.125 MG TABLET PO (19:36)
[2020-10-27] MEDS: hydrALAZINE 10 MG TABLET PO (19:36)
[2020-10-27 19:46] LABS: Hematocrit 27.4 % (37.0-47.0); Hemoglobin 9.4 g/dL (12.0-15.0)
[2020-10-27] MEDS: SACUBITRIL/VALSARTAN 24-26 MG TABLET 1 TAB PO (20:06)
[2020-10-27] MEDS: traZODone HCL 50 MG TABLET 100 MG PO (20:06)
[2020-10-27] MEDS: ALPRAZolam (*CRX) 0.5 MG TABLET PO (20:06)
[2020-10-27 20:39] LABS: Creatinine Urine 54.3 mg/dL; Total Protein Urine Random 13 mg/dL; Ur Ttl Prot Creatinine Ratio 0.24 mg/mg (0-0.20)
[2020-10-27 20:40] LABS: Potassium Urine Random 22.7 meq/L; Sodium Urine Random 82 meq/L
[2020-10-27] MEDS: HYDROcodone/acetaminophen (*CRX) 5-325 MG TABLET 1 TAB PO (21:59)
[2020-10-28] VITALS (11 sets, daily range): BP systolic 101–116; BP diastolic 50–73; PULSE 60–83; RESP 16–18; TEMP 35.8–36.1; O2SAT 95–96
[2020-10-28 01:31] LABS: Hematocrit 26.9 % (37.0-47.0); Hemoglobin 9.1 g/dL (12.0-15.0)
[2020-10-28] MEDS: LEVOTHYROXINE SODIUM 125 MCG TABLET PO (05:53)
[2020-10-28 07:58] LABS: Hematocrit 28.3 % (37.0-47.0); Hemoglobin 9.6 g/dL (12.0-15.0)
[2020-10-28] MEDS: SODIUM CHLORIDE 0.9% IV 1,000 ML 100 ML IV CONT ×2 (08:09→19:59)
[2020-10-28 08:10] LABS: Alanine Aminotransferase 29 U/L (4-35); Albumin Level 3.4 g/dL (3.5-5.1); Alkaline Phosphatase 67 U/L (38-126); Anion Gap 6 mmol/L (8-16); Aspartate Amino Transferase 50 U/L (14-36); Bilirubin,Total 0.7 mg/dL (0.2-1.3); Blood Urea Nitrogen 28 mg/dL (7-17); Calcium 8.4 mg/dL (8.4-10.2); Carbon Dioxide 23 mmol/L (22-30); Chloride 97 mmol/L (98-107); Estimated CRCL calculation 14 ml/min; Estimated Glomerular Filt Rate 23; Glucose 79 mg/dL (65-105); Magnesium 2.2 mg/dL (1.6-2.3); Phosphorus 4.4 mg/dL (2.5-4.5); Potassium 5.2 mmol/L (3.4-5.0); Sodium 126 mmol/L (137-145)
[2020-10-28] MEDS: HYOSCYAMINE SULFATE 0.125 MG TABLET PO ×4 (08:10→20:01)
[2020-10-28] MEDS: METOPROLOL SUCCINATE EXT REL 50 MG TABCR PO (08:11)
[2020-10-28] MEDS: SACUBITRIL/VALSARTAN 24-26 MG TABLET 1 TAB PO ×2 (08:11→20:02)
[2020-10-28] MEDS: PANTOPRAZOLE 40 MG TABLET PO (08:11)
[2020-10-28] MEDS: FERROUS SULFATE 324 MG TABLET PO (08:11)
[2020-10-28] MEDS: SERTRALINE HCL 25 MG TABLET PO (08:11)
[2020-10-28] MEDS: hydrALAZINE 10 MG TABLET PO ×3 (08:11→16:33)
[2020-10-28] MEDS: CLOPIDOGREL BISULFATE 75 MG TABLET PO (08:12)
[2020-10-28] MEDS: LEVOTHYROXINE SODIUM 50 MCG TABLET PO (08:23)
[2020-10-28] MEDS: HYDROcodone/acetaminophen (*CRX) 5-325 MG TABLET 1 TAB PO (10:55)
--- NOTE | 2020-10-28 11:35 | PCDIET ---
Dietitian Screen for BMI: 18.0. Spoke with patient today regarding weight, she states weight is typically around 103 ibs, admit weight 99 ibs. Patient states to eating well, 100% reported. No further nutritional needs at this time.
--- NOTE | 2020-10-28 11:35 | PM.PNNEP ---
Progress Note: A&P Assessment and Plan (1) Chronic kidney disease, stage 3b: Code(s): N18.32 - Chronic kidney disease, stage 3b Status: Acute Assessment and Plan: Eventually in has chronic kidney disease stage IIIB. Her GFR generally ranges in the low 30s and occasionally dips into the high 20s. renal ultrasound shows small kidneys and echogenicity. Serology and immunofixation are pending urinalysis is bland. There is some protein. Most likely this is due to vascular disease and hypertension. (2) Acute kidney failure, unspecified: Code(s): N17.9 - Acute kidney failure, unspecified Status: Acute Assessment and Plan: The patient has acute kidney injury as well. ultrasound shows nothing acute. Urine electrolytes are non pre renal ( but the patient was on diuretics ) CK is slightly elevated, enough to hurt the kidneys. Possibly a bit dehydrated. Her creatinine is a little worse. She started IV fluids this morning. The patient has pyuria, But she only has 7-9 white cells per high-power field. A culture has been ordered. At this point try some IV fluids and see how her creatinine does. (3) Hyponatremia: Code(s): E87.1 - Hypo-osmolality and hyponatremia Status: Acute Assessment and Plan: Sodium level is low. This is chronic. TSH is over 100! Levothyroxine has been increased. This of course could be why she is hyponatremic. Cortisol level is okay. SPEP is pending. Sodium is a little bit lower. Will fluid restrict. She is getting normal saline. Check another sodium this evening in case this worsens with the fluids. (4) CAD (coronary artery disease): Code(s): I25.10 - Atherosclerotic heart disease of [place] coronary artery without angina pectoris Status: Acute Assessment and Plan: No chest pain (5) Congestive heart failure: Qualifiers: Heart failure type: unspecified Heart failure chronicity: chronic Qualified Code(s): I50.9 - Heart failure, unspecified Code(s): I50.9 - Heart failure, unspecified Status: Chronic Assessment and Plan: Her heart failure looks well compensated with a clear chest x-ray. could the thyroid be causing this? (6) Hypertension: Qualifiers: Hypertension type: unspecified Qualified Code(s): I10 - Essential (primary) hypertension Code(s): I10 - Essential (primary) hypertension Status: Chronic Assessment and Plan: Her blood pressure is well controlled (7) Orthostatic hypotension: Code(s): I95.1 - Orthostatic hypotension Status: Resolved Assessment and Plan: Will follow her blood pressure readings . So far blood pressure is okay but I do not see any orthostatic measurements. Subjective Date/time seen: 10/28/20 11:35 Interval history: Patient is sitting up in a semi [place] is position. She is comfortable. She is about to eat breakfast. No chest pain or shortness of breath Review of Systems Cardiovascular: Cardiovascular: Reports no additional cardiovascular complaints Respiratory: Respiratory: Reports no additional respiratory complaints Gastrointestinal: Gastrointestinal: Reports no additional gastrointestinal complaints Genitourinary: Genitourinary: Reports no additional female genitourinary complaints Exam Narrative: Exam Narrative: WDWN in NAD skin no rash head ncat lungs clear cor reg no rub abd BS+ nontender and soft ext no edema. Objective Data Vital Signs Vital Signs: Vital Signs - 24 hr 10/27/20 11:59 10/27/20 12:07 10/27/20 12:19 Temperature 36.1 C L 36.1 C L Pulse Rate 63 48 L 51 L Respiratory Rate 22 H 14 16 Blood Pressure 124/90 124/90 137/58 L Pulse Oximetry 98 100 100 10/27/20 13:19 10/27/20 13:55 10/27/20 16:00 Temperature 36.1 C L 36.9 C Pulse Rate 50 L 68 58 L Respiratory Rate 12 16 Blood Pressure 153/70 H 128/88 Pulse Oximetry
[2020-10-28 17:38] LABS: Sodium 124 mmol/L (137-145)
--- NOTE | 2020-10-28 19:06 | PM.IMPN ---
Progress Note: A&P Assessment and Plan (1) Contusion of hip, left: Code(s): S70.02XA - Contusion of left hip, initial encounter Status: Acute Assessment and Plan: Patient had a fall on 10/25 with xrays showing no acute fracture; repeat xrays again showing no fracture on 10/27. Patient's pain is controlled. She is up ambulating with therapy. Continue PT and OT. Placement being arranged. (2) Hyponatremia: Code(s): E87.1 - Hypo-osmolality and hyponatremia Status: Acute Assessment and Plan: Patient has chronic hyponatremia. Na lower probably related to pain. Nephrology following. Alethea 82 so appropriate for fluid restriction. Also on diuretics which could have contributed to this and this has been held. Also on Trazodone and Zoloft which could be contributing. (3) Chronic chest pain: Code(s): R07.9 - Chest pain, unspecified; G89.29 - Other chronic pain Status: Acute Assessment and Plan: Patient has chronic chest pain related to severe acid reflux. She follows with GI and Cardiology and they are aware of her chronic CP. Follow and consider further evaluation if pain changes in [facility]. (4) Paroxysmal atrial fibrillation: Code(s): I48.0 - Paroxysmal atrial fibrillation Status: Chronic Assessment and Plan: Appears to be maintaining NSR. No longer on any anticoagulation due to her frequent falls. Continue Toprol. (5) Chronic kidney disease, stage 3: Code(s): N18.3 - Chronic kidney disease, stage 3 (moderate) Status: Acute Assessment and Plan: Patient's creatinine last year mostly 1.4-1.9. Patient's creatinine is 2.6 on admission and better with IV fluids to 2.1. Renal US showing medical renal disease and mild renal atrophy. Nephrology following. Continue to follow. (6) Congestive heart failure: Qualifiers: Heart failure chronicity: chronic Heart failure type: unspecified Qualified Code(s): I50.9 - Heart failure, unspecified Code(s): I50.9 - Heart failure, unspecified Status: Chronic Assessment and Plan: Echo in Nov 2019 showing EF 55% and Grade i diastolic dysfunction. Patient came in on Lasix, metoprolol and Entresto. Appears euvolemic. Continue to monitor. (7) Closed head injury: Qualifiers: Encounter type: initial encounter Qualified Code(s): S09.90XA - Unspecified injury of head, initial encounter Code(s): S09.90XA - Unspecified injury of head, initial encounter Status: Acute Assessment and Plan: Patient had a fall with a closed head injury 10/[address] brain at that time. Repeat CT brain was negative today. (8) Hypertension: Qualifiers: Hypertension type: unspecified Qualified Code(s): I10 - Essential (primary) hypertension Code(s): I10 - Essential (primary) hypertension Status: Chronic Assessment and Plan: BP reviewed on 10/28. BP better controlled. Continue with metoprolol and hydralazine. (9) Hypothyroidism: Qualifiers: Hypothyroidism type: unspecified Qualified Code(s): E03.9 - Hypothyroidism, unspecified Code(s): E03.9 - Hypothyroidism, unspecified Status: Chronic Assessment and Plan: TSH >100. Patient states she takes her Synthroid daily. Hypothyroidism could be contributing to her hyponatremia. Will advance levothyroxine. Check FT4. (10) Anxiety and depression: Code(s): F41.9 - Anxiety disorder, unspecified; F32.9 - Major depressive disorder, single episode, unspecified Status: Acute Assessment and Plan: Anxious and nervous. Continue with trazodone, sertraline and alprazolam. Follow for now. Subjective Date/time seen: 10/28/20 19:06 Interval history: Date of service 10/28 80yo female with CKD, CHF, ch anemia and pAFib here for hip pain after a fall. Patietn complains of left hip pain. She wa
[2020-10-28] MEDS: SODIUM CHLORIDE 1 GM TABLET PO (20:00)
[2020-10-28] MEDS: traZODone HCL 50 MG TABLET 100 MG PO (20:01)
[2020-10-28] MEDS: FUROSEMIDE 20 MG TABLET PO (20:01)
[2020-10-28 22:11] LABS: Sodium 125 mmol/L (137-145)
[2020-10-28] MEDS: ALPRAZolam (*CRX) 0.5 MG TABLET PO (22:23)
[2020-10-29] VITALS (8 sets, daily range): BP systolic 111–116; BP diastolic 64–70; PULSE 61–87; RESP 16–18; TEMP 36.1–36.3; O2SAT 94–98
[2020-10-29] MEDS: LEVOTHYROXINE SODIUM 100 MCG TABLET PO (05:45)
[2020-10-29] MEDS: LEVOTHYROXINE SODIUM 75 MCG TABLET PO (05:45)
[2020-10-29 05:55] LABS: Basophils Percent Auto 0.2 % (0.2-1.2); Eosinophils Absolute Auto 0.1 K/mm3 (0-0.3); Eosinophils Percent Auto 1.5 % (0-4.4); Hematocrit 28.6 % (37.0-47.0); Hemoglobin 9.7 g/dL (12.0-15.0); Immature Granulocyte Absolute 0.04 K/mm3 (0.00-0.031); Immature Granulocyte Percent A 0.9 % (0-0.5); Lymphocytes Percent Auto 13.2 % (18.3-44.2); Mean Corpuscular HGB Conc 33.9 g/dl (32-36); Mean Corpuscular Volume 94.4 fl (80-100); Mean Platelet Volume 9.7 fl (7.4-10.4); Monocytes Absolute Auto 0.3 K/mm3 (0.1-0.6); Monocytes Percent Auto 6.8 % (2.6-8.5); Neutrophils Absolute Auto 3.5 K/mm3 (1.3-6.7); Neutrophils Percent Auto 77.4 % (45.5-73.1); Platelet Count Result 171 k/mm3 (150-375); Red Blood Count 3.03 M/mm3 (4.2-5.4); Red Cell Distribution Width 13.6 % (11.5-14.5); White Blood Count 4.6 K/mm3 (4.5-10.0)
[2020-10-29 06:42] LABS: Albumin Level 3.3 g/dL (3.5-5.1); Anion Gap 7 mmol/L (8-16); Blood Urea Nitrogen 23 mg/dL (7-17); Calcium 8.2 mg/dL (8.4-10.2); Carbon Dioxide 22 mmol/L (22-30); Chloride 101 mmol/L (98-107); Estimated CRCL calculation 17 ml/min; Estimated Glomerular Filt Rate 29; Glucose 79 mg/dL (65-105); Magnesium 1.9 mg/dL (1.6-2.3); Phosphorus 4.3 mg/dL (2.5-4.5); Potassium 4.5 mmol/L (3.4-5.0); Sodium 130 mmol/L (137-145)
[2020-10-29] MEDS: SERTRALINE HCL 25 MG TABLET PO (08:34)
[2020-10-29] MEDS: HYOSCYAMINE SULFATE 0.125 MG TABLET PO ×4 (08:34→20:51)
[2020-10-29] MEDS: ALPRAZolam (*CRX) 0.5 MG TABLET PO ×2 (08:34→20:51)
[2020-10-29] MEDS: METOPROLOL SUCCINATE EXT REL 50 MG TABCR PO (08:35)
[2020-10-29] MEDS: SACUBITRIL/VALSARTAN 24-26 MG TABLET 1 TAB PO ×2 (08:35→20:51)
[2020-10-29] MEDS: hydrALAZINE 10 MG TABLET PO ×3 (08:35→18:08)
[2020-10-29] MEDS: FERROUS SULFATE 324 MG TABLET PO (08:35)
[2020-10-29] MEDS: SODIUM CHLORIDE 1 GM TABLET PO (08:35)
[2020-10-29] MEDS: CLOPIDOGREL BISULFATE 75 MG TABLET PO (08:35)
[2020-10-29] MEDS: FUROSEMIDE 20 MG TABLET PO (08:36)
[2020-10-29 08:37] LABS: Thyroid Stimulating Hormone Reflex > 100.000 uIU/mL (0.465-4.68)
[2020-10-29] MEDS: PANTOPRAZOLE 40 MG TABLET PO (08:37)
[2020-10-29 09:17] LABS: Free T4 Free Thyroxine Reflex 0.23 ng/dL (0.78-2.19)
[2020-10-29 11:16] LABS: Kappa\\Lambda Light Chains 1.21 (0.26-1.65); Lambda Light Chain 33.7 mg/L (5.7-26.3)
[2020-10-29] MEDS: SODIUM CHLORIDE 0.9% IV 1,000 ML 100 ML IV CONT (11:55)
[2020-10-29 12:23] LABS: SM Antibody <1.0; SM/RNP Antibody <1.0
[2020-10-29] MEDS: MAGNESIUM HYDROXIDE SUSP 30 ML UDC PO (13:35)
[2020-10-29 14:43] LABS: Complement Total CH50 >60 U/mL (31-60)
--- NOTE | 2020-10-29 15:46 | PM.PNNEP ---
Progress Note: A&P Assessment and Plan (1) Chronic kidney disease, stage 3b: Code(s): N18.32 - Chronic kidney disease, stage 3b Status: Acute Assessment and Plan: Eventually in has chronic kidney disease stage IIIB. Her GFR generally ranges in the low 30s and occasionally dips into the high 20s. renal ultrasound shows small kidneys and echogenicity. Serology and immunofixation are pending urinalysis is bland. There is some protein. Most likely this is due to vascular disease and hypertension. (2) Acute kidney failure, unspecified: Code(s): N17.9 - Acute kidney failure, unspecified Status: Acute Assessment and Plan: The patient has acute kidney injury as well. ultrasound shows nothing acute. Urine electrolytes are non pre renal ( but the patient was on diuretics ) CK is slightly elevated, enough to hurt the kidneys. Her creatinine has improved to her baseline. (3) Hyponatremia: Code(s): E87.1 - Hypo-osmolality and hyponatremia Status: Acute Assessment and Plan: Sodium level is low. This is chronic. TSH is over 100! Levothyroxine has been increased. This of course could be why she is hyponatremic. Cortisol level is okay. SPEP is pending. Sodium is better now. She received some IV fluids to help her creatinine and she received salt tablets and furosemide to help her Sodium. All those things got better. Now I think she can be discharged on fluid restriction alone. (4) CAD (coronary artery disease): Code(s): I25.10 - Atherosclerotic heart disease of [place] coronary artery without angina pectoris Status: Acute Assessment and Plan: No chest pain (5) Congestive heart failure: Qualifiers: Heart failure type: unspecified Heart failure chronicity: chronic Qualified Code(s): I50.9 - Heart failure, unspecified Code(s): I50.9 - Heart failure, unspecified Status: Chronic Assessment and Plan: Her heart failure looks well compensated with a clear chest x-ray. could the thyroid be causing this? (6) Hypertension: Qualifiers: Hypertension type: unspecified Qualified Code(s): I10 - Essential (primary) hypertension Code(s): I10 - Essential (primary) hypertension Status: Chronic Assessment and Plan: Her blood pressure is well controlled (7) Orthostatic hypotension: Code(s): I95.1 - Orthostatic hypotension Status: Resolved Assessment and Plan: Will follow her blood pressure readings . Her blood pressures generally run between 110 and 120 regardless of position. Subjective Date/time seen: 10/29/20 15:46 Interval history: Patient is lying comfortably in bed. No chest pain or shortness of breath Exam Narrative: Exam Narrative: WDWN in NAD skin no rash head ncat lungs clear bilaterally cor reg no rub abd BS+ nontender and soft ext no edema. Objective Data Vital Signs Vital Signs: Vital Signs - 24 hr 10/28/20 16:00 10/28/20 20:00 10/28/20 21:00 Temperature 36.1 C L Pulse Rate 63 64 63 Respiratory Rate 18 Blood Pressure 104/50 L Pulse Oximetry 95 10/29/20 00:00 10/29/20 04:10 10/29/20 04:54 Temperature 36.3 C L Pulse Rate 61 70 71 Respiratory Rate 18 Blood Pressure 114/69 Pulse Oximetry 94 10/29/20 08:00 10/29/20 08:18 10/29/20 08:35 Temperature Pulse Rate 66 66 Respiratory Rate Blood Pressure 112/64 116/70 Pulse Oximetry 10/29/20 12:00 10/29/20 14:00 Temperature 36.1 C L Pulse Rate 87 76 Respiratory Rate 16 Blood Pressure 111/66 Pulse Oximetry 98 Intake/Output Intake/Output: Intake & Output 10/26/20 10/27/20 10/28/20 10/29/20 23:59 23:59 23:59 23:59 Intake Total 1455 3080 1617 Output Total 0 950 1400 Balance 1455 2130 217 Meds/Results Medications: Active Medications Generic Name Dose Route Start Last Admin Trade Name Freq PRN Reason
--- NOTE | 2020-10-29 16:08 | PM.IMPN ---
Progress Note: A&P Assessment and Plan (1) Contusion of hip, left: Code(s): S70.02XA - Contusion of left hip, initial encounter Status: Acute Assessment and Plan: Patient had a fall on 10/25 with hip xrays showing no acute fracture; repeat xrays again showing no fracture on 10/27. Patient's pain is controlled. She is up ambulating with therapy. Continue PT and OT. Placement being arranged. (2) Hyponatremia: Code(s): E87.1 - Hypo-osmolality and hyponatremia Status: Acute Assessment and Plan: Patient has chronic hyponatremia. Na level lower probably related to pain. Nephrology following. Alethea 82 so appropriate for fluid restriction. Also on diuretics which could have contributed to this and this has been held. Also on Trazodone and Zoloft which could be contributing. Appreciate nephrology input. Na better today at 130. (3) Chronic chest pain: Code(s): R07.9 - Chest pain, unspecified; G89.29 - Other chronic pain Status: Acute Assessment and Plan: Patient has chronic chest pain related to severe acid reflux. She follows with GI and Cardiology and they are aware of her chronic CP. Follow and consider further evaluation if pain changes in [facility]. (4) Paroxysmal atrial fibrillation: Code(s): I48.0 - Paroxysmal atrial fibrillation Status: Chronic Assessment and Plan: Appears to be maintaining NSR. No longer on any anticoagulation due to her frequent falls. Continue Toprol. (5) Chronic kidney disease, stage 3: Code(s): N18.3 - Chronic kidney disease, stage 3 (moderate) Status: Acute Assessment and Plan: Patient's creatinine last year mostly 1.4-1.9. Patient's creatinine was 2.6 on admission and better today at 1.7. Renal US showing medical renal disease and mild renal atrophy. Nephrology following. Continue to follow. (6) Congestive heart failure: Qualifiers: Heart failure chronicity: chronic Heart failure type: unspecified Qualified Code(s): I50.9 - Heart failure, unspecified Code(s): I50.9 - Heart failure, unspecified Status: Chronic Assessment and Plan: Echo in Nov 2019 showing EF 55% and Grade 1 diastolic dysfunction. Patient came in on Lasix, metoprolol and Entresto. Appears euvolemic. Continue Metoprolol and Entresto. Continue to monitor. (7) Closed head injury: Qualifiers: Encounter type: initial encounter Qualified Code(s): S09.90XA - Unspecified injury of head, initial encounter Code(s): S09.90XA - Unspecified injury of head, initial encounter Status: Acute Assessment and Plan: Patient had a fall with a closed head injury 10/[address] brain at that time. Repeat CT brain was negative 10/28. (8) Hypertension: Qualifiers: Hypertension type: unspecified Qualified Code(s): I10 - Essential (primary) hypertension Code(s): I10 - Essential (primary) hypertension Status: Chronic Assessment and Plan: BP reviewed on 10/29 BP well controlled. Continue with metoprolol, Entresto and hydralazine. (9) Hypothyroidism: Qualifiers: Hypothyroidism type: unspecified Qualified Code(s): E03.9 - Hypothyroidism, unspecified Code(s): E03.9 - Hypothyroidism, unspecified Status: Chronic Assessment and Plan: TSH >100. Patient states she takes her Synthroid daily. Hypothyroidism could be contributing to her hyponatremia. We advanced her levothyroxine. (10) Anxiety and depression: Code(s): F41.9 - Anxiety disorder, unspecified; F32.9 - Major depressive disorder, single episode, unspecified Status: Acute Assessment and Plan: Anxious and nervous but mood overall stable. Continue with trazodone, sertraline and alprazolam. Follow for now. (11) UTI (urinary tract infection): Code(s): N39.0 - Urinary tract infection, site not specified
[2020-10-29] MEDS: HYDROcodone/acetaminophen (*CRX) 5-325 MG TABLET 1 TAB PO (18:07)
[2020-10-29] MEDS: traZODone HCL 50 MG TABLET 100 MG PO (20:51)
[2020-10-30 05:16] VITALS: BP 109/63; PULSE 81; RESP 14; TEMP 36.9; O2SAT 92
[2020-10-30] MEDS: HYDROcodone/acetaminophen (*CRX) 5-325 MG TABLET 1 TAB PO ×2 (06:37→21:29)
[2020-10-30] MEDS: LEVOTHYROXINE SODIUM 75 MCG TABLET PO (06:38)
[2020-10-30] MEDS: LEVOTHYROXINE SODIUM 100 MCG TABLET PO (06:38)
[2020-10-30 07:49] VITALS: BP 103/67; PULSE 66; RESP 16; TEMP 36.3; O2SAT 97
[2020-10-30 07:50] VITALS: BP 101/64; BP 92/62; PULSE 72; PULSE 88
[2020-10-30] MEDS: FERROUS SULFATE 324 MG TABLET PO (08:06)
[2020-10-30] MEDS: CLOPIDOGREL BISULFATE 75 MG TABLET PO (08:06)
[2020-10-30] MEDS: HYOSCYAMINE SULFATE 0.125 MG TABLET PO ×4 (08:06→21:28)
[2020-10-30] MEDS: PANTOPRAZOLE 40 MG TABLET PO (08:06)
[2020-10-30] MEDS: SACUBITRIL/VALSARTAN 24-26 MG TABLET 1 TAB PO ×2 (08:06→21:28)
[2020-10-30] MEDS: SERTRALINE HCL 25 MG TABLET PO (08:06)
[2020-10-30 08:12] VITALS: PULSE 76
[2020-10-30] MEDS: METOPROLOL SUCCINATE EXT REL 50 MG TABCR PO (08:12)
[2020-10-30 09:04] LABS: Albumin Level 3.6 g/dL (3.5-5.1); Anion Gap 5 mmol/L (8-16); Blood Urea Nitrogen 22 mg/dL (7-17); Calcium 8.4 mg/dL (8.4-10.2); Carbon Dioxide 28 mmol/L (22-30); Chloride 99 mmol/L (98-107); Estimated CRCL calculation 17 ml/min; Estimated Glomerular Filt Rate 29; Glucose 79 mg/dL (65-105); Potassium 3.9 mmol/L (3.4-5.0); Sodium 132 mmol/L (137-145)
[2020-10-30] MEDS: ACYCLOVIR 200 MG CAPSULE 1000 MG PO (12:21)
--- NOTE | 2020-10-30 12:29 | PM.PNNEP ---
Progress Note: A&P Assessment and Plan (1) Chronic kidney disease, stage 3b: Code(s): N18.32 - Chronic kidney disease, stage 3b Status: Acute Assessment and Plan: Eventually in has chronic kidney disease stage IIIB. Her GFR generally ranges in the low 30s and occasionally dips into the high 20s. renal ultrasound shows small kidneys and echogenicity. Serology and immunofixation are pending urinalysis is bland. There is some protein. Most likely this is due to vascular disease and hypertension. She is at her baseline creatinine (2) Acute kidney failure, unspecified: Code(s): N17.9 - Acute kidney failure, unspecified Status: Acute Assessment and Plan: Resolved (3) Hyponatremia: Code(s): E87.1 - Hypo-osmolality and hyponatremia Status: Acute Assessment and Plan: Sodium level is low. This is chronic. TSH is over 100! Levothyroxine has been increased. This of course could be why she is hyponatremic. Cortisol level is okay. SPEP is pending. Sodium is stable now in the low 130s. She is on fluid restriction only. Because of cardiac issues in the past. His long she is on a fluid restriction the furosemide should not make her sodium drop. (4) CAD (coronary artery disease): Code(s): I25.10 - Atherosclerotic heart disease of [place] coronary artery without angina pectoris Status: Acute Assessment and Plan: No chest pain (5) Congestive heart failure: Qualifiers: Heart failure type: unspecified Heart failure chronicity: chronic Qualified Code(s): I50.9 - Heart failure, unspecified Code(s): I50.9 - Heart failure, unspecified Status: Chronic Assessment and Plan: Her heart failure looks well compensated with a clear chest x-ray. Getting furosemide. (6) Hypertension: Qualifiers: Hypertension type: unspecified Qualified Code(s): I10 - Essential (primary) hypertension Code(s): I10 - Essential (primary) hypertension Status: Chronic Assessment and Plan: Her blood pressure is well controlled (7) Orthostatic hypotension: Code(s): I95.1 - Orthostatic hypotension Status: Resolved Assessment and Plan: Will follow her blood pressure readings . Her blood pressures generally run between 110 and 120 regardless of position. Subjective Date/time seen: 10/30/20 12:29 Interval history: Patient is lying comfortably in bed. In summary fowlers position No chest pain or shortness of Breath On a fluid restriction Exam Narrative: Exam Narrative: WDWN in NAD skin no rash head ncat lungs clear bilaterally cor reg no rub abd BS+ nontender and soft ext no edema. Objective Data Vital Signs Vital Signs: Vital Signs - 24 hr 10/29/20 14:00 10/30/20 05:16 10/30/20 07:49 Temperature 36.1 C L 36.9 C 36.3 C L Pulse Rate 76 81 66 Respiratory Rate 16 14 16 Blood Pressure 111/66 109/63 103/67 Pulse Oximetry 98 92 97 10/30/20 07:50 10/30/20 08:12 Temperature Pulse Rate 88 76 Respiratory Rate Blood Pressure 92/62 L Pulse Oximetry Intake/Output Intake/Output: Intake & Output 10/27/20 10/28/20 10/29/20 10/30/20 23:59 23:59 23:59 23:59 Intake Total 1455 3080 1907 360 Output Total 0 950 1900 400 Balance 1455 2130 7 -40 Meds/Results Medications: Active Medications Generic Name Dose Route Start Last Admin Trade Name Freq PRN Reason Stop Dose Admin Hydrocodone Bitart/Acetaminophen 1 tab 10/27/20 09:38 10/30/20 06:37 Hydrocodone/Acetaminophen (*Crx) 5-325 Mg Tablet PO 1 tab Q4H PRN Administration Pain Rated 4-6 Acyclovir 1,000 mg 10/30/20 09:00 10/30/20 12:21 Acyclovir 200 Mg Capsule PO 1,000 mg DAILY JESSICA Administration Alprazolam 0.5 mg 10/27/20 13:24 10/29/20 20:51 Alprazolam (*Crx) 0.5 Mg Tablet PO 0.5 mg TID PRN Administration Anxiety Clopidogrel Bisulfate 75 mg 10/28
[2020-10-30 14:00] VITALS: BP 112/78; PULSE 78; RESP 16; TEMP 36.7; O2SAT 94
--- NOTE | 2020-10-30 17:05 | PM.IMPN ---
Progress Note: A&P Assessment and Plan (1) Contusion of hip, left: Code(s): S70.02XA - Contusion of left hip, initial encounter Status: Acute Assessment and Plan: Patient had a fall on 10/25 with xrays showing no acute fracture; repeat xrays again showing no fracture on 10/27. Patient's pain is better. She is up ambulating with therapy. Continue PT and OT. CC state patient is too good for SNF so plan now is for home with HH. This is being arranged. (2) Hyponatremia: Code(s): E87.1 - Hypo-osmolality and hyponatremia Status: Acute Assessment and Plan: Patient has chronic hyponatremia. Na lower probably related to pain. Nephrology following. Alethea 82 so appropriate for fluid restriction. Also on diuretics which could have contributed to this. Also on Trazodone and Zoloft which could be contributing. Sodum better at 132. (3) Chronic chest pain: Code(s): R07.9 - Chest pain, unspecified; G89.29 - Other chronic pain Status: Acute Assessment and Plan: Patient has chronic chest pain related to severe acid reflux. She follows with GI and Cardiology and they are aware of her chronic CP. Follow and consider further evaluation if pain changes in character. No pain today. (4) Paroxysmal atrial fibrillation: Code(s): I48.0 - Paroxysmal atrial fibrillation Status: Chronic Assessment and Plan: Appears to be maintaining NSR. No longer on any anticoagulation due to her frequent falls. Continue Toprol. (5) Chronic kidney disease, stage 3: Code(s): N18.3 - Chronic kidney disease, stage 3 (moderate) Status: Acute Assessment and Plan: Patient's creatinine last year mostly 1.4-1.9. Patient's creatinine is 2.6 on admission and better with IV fluids. Renal US showing medical renal disease and mild renal atrophy. Nephrology following. Continue to follow. (6) Congestive heart failure: Qualifiers: Heart failure chronicity: chronic Heart failure type: unspecified Qualified Code(s): I50.9 - Heart failure, unspecified Code(s): I50.9 - Heart failure, unspecified Status: Chronic Assessment and Plan: Echo in Nov 2019 showing EF 55% and Grade 1 diastolic dysfunction. Patient came in on Lasix, metoprolol and Entresto. Appears euvolemic. Continue Metoprolol and Entresto. Lasix resumed as well. Continue to monitor. (7) Closed head injury: Qualifiers: Encounter type: initial encounter Qualified Code(s): S09.90XA - Unspecified injury of head, initial encounter Code(s): S09.90XA - Unspecified injury of head, initial encounter Status: Acute Assessment and Plan: Patient had a fall with a closed head injury 10/[address] brain at that time. Repeat CT brain was negative 10/28. Menatal status normal and she remains at her baseline. (8) Hypertension: Qualifiers: Hypertension type: unspecified Qualified Code(s): I10 - Essential (primary) hypertension Code(s): I10 - Essential (primary) hypertension Status: Chronic Assessment and Plan: BP reviewed on 10/30. BP low at times. Continue with metoprolol, Entresto and Lasix but stop hydralazine. Continue to monitor. (9) Hypothyroidism: Qualifiers: Hypothyroidism type: unspecified Qualified Code(s): E03.9 - Hypothyroidism, unspecified Code(s): E03.9 - Hypothyroidism, unspecified Status: Chronic Assessment and Plan: TSH >100. Patient states she takes her Synthroid daily. Hypothyroidism could be contributing to her hyponatremia. We advanced her levothyroxine. (10) Anxiety and depression: Code(s): F41.9 - Anxiety disorder, unspecified; F32.9 - Major depressive disorder, single episode, unspecified Status: Acute Assessment and Plan: Mood better today. Continue with trazodone, sertraline and alprazolam. Follow for now.
[2020-10-30 20:03] VITALS: BP 119/89; PULSE 64; RESP 14; TEMP 37.2; O2SAT 92
[2020-10-30] MEDS: traZODone HCL 50 MG TABLET 100 MG PO (21:28)
[2020-10-30] MEDS: ALPRAZolam (*CRX) 0.5 MG TABLET PO (21:29)
[2020-10-31 05:09] LABS: Osmolality, Urine 293 mOsm/kg (50-1200)
[2020-10-31 05:23] LABS: Albumin 3.7 g/dL (3.8-4.8); Alpha 1 Globulin 0.3 g/dL (0.2-0.3); Alpha 2 Globulin 0.5 g/dL (0.5-0.9); Beta 1 Globulin 0.4 g/dL (0.4-0.6); Gamma Globulin 0.6 g/dL (0.8-1.7); Interpretation Consistent with; Protein, Total 5.7 g/dL (6.1-8.1)
[2020-10-31 05:50] VITALS: BP 122/53; PULSE 71; RESP 12; TEMP 36.5; O2SAT 95
[2020-10-31] MEDS: LEVOTHYROXINE SODIUM 100 MCG TABLET PO (06:31)
[2020-10-31] MEDS: LEVOTHYROXINE SODIUM 75 MCG TABLET PO (06:31)
[2020-10-31 06:41] LABS: Albumin Level 3.2 g/dL (3.5-5.1); Anion Gap 4 mmol/L (8-16); Blood Urea Nitrogen 21 mg/dL (7-17); Calcium 8.4 mg/dL (8.4-10.2); Carbon Dioxide 26 mmol/L (22-30); Chloride 103 mmol/L (98-107); Estimated CRCL calculation 18 ml/min; Estimated Glomerular Filt Rate 31; Glucose 81 mg/dL (65-105); Phosphorus 3.9 mg/dL (2.5-4.5); Potassium 4.5 mmol/L (3.4-5.0); Sodium 133 mmol/L (137-145)
[2020-10-31 08:00] VITALS: BP 109/60; PULSE 73; RESP 16; TEMP 37; O2SAT 97
[2020-10-31] MEDS: ACYCLOVIR 200 MG CAPSULE 1000 MG PO (08:21)
[2020-10-31] MEDS: HYOSCYAMINE SULFATE 0.125 MG TABLET PO ×2 (08:22→12:13)
[2020-10-31] MEDS: PANTOPRAZOLE 40 MG TABLET PO (08:22)
[2020-10-31] MEDS: FERROUS SULFATE 324 MG TABLET PO (08:22)
[2020-10-31] MEDS: CLOPIDOGREL BISULFATE 75 MG TABLET PO (08:22)
[2020-10-31] MEDS: SACUBITRIL/VALSARTAN 24-26 MG TABLET 1 TAB PO (08:22)
[2020-10-31] MEDS: SERTRALINE HCL 25 MG TABLET PO (08:22)
[2020-10-31] MEDS: FUROSEMIDE 20 MG TABLET PO (08:23)
[2020-10-31 08:26] VITALS: PULSE 88
[2020-10-31] MEDS: METOPROLOL SUCCINATE EXT REL 50 MG TABCR PO (08:26)
[2020-10-31 09:51] LABS: Anti Glomerular Basement Memb <1.0 AI (<1.0)
--- NOTE | 2020-10-31 10:29 | PM.DS ---
DS: Admitting Diagnosis Admitting Diagnosis Admitting Diagnosis: Weakness and left leg pain DS: Discharge Diagnosis Discharge Diagnosis (1) Contusion of hip, left: Code(s): S70.02XA - Contusion of left hip, initial encounter Status: Acute Assessment and Plan: Patient had a fall on 10/25 with hip xrays in the ED showing no acute fracture; she was discharged home. She returns for persistent pain on 10/27 and repeat xrays again showing no fracture. Patient admitted and PT/OT ordered. Patient's pain better controlled. She is up ambulating with therapy in the halls. She feels comfortable with discharge home with home health. (2) Hyponatremia: Code(s): E87.1 - Hypo-osmolality and hyponatremia Status: Acute Assessment and Plan: Patient has chronic hyponatremia. Na level lower to 124 probably related to pain. Nephrology was consulted. Alethea 82 so fluid restriction ordered. Also on diuretics which could have contributed to this and this was held but able to be resumed. Also on Trazodone and Zoloft which could be contributing. Na better today at 133. (3) Chronic chest pain: Code(s): R07.9 - Chest pain, unspecified; G89.29 - Other chronic pain Status: Acute Assessment and Plan: Patient has chronic chest pain related to severe acid reflux. She follows with GI and Cardiology and they are aware of her chronic CP. No significant complaints of chest pain here. (4) Paroxysmal atrial fibrillation: Code(s): I48.0 - Paroxysmal atrial fibrillation Status: Chronic Assessment and Plan: Patient was maintaining NSR here. No longer on any anticoagulation due to her frequent falls. We continued her Toprol. (5) Chronic kidney disease, stage 3: Code(s): N18.3 - Chronic kidney disease, stage 3 (moderate) Status: Acute Assessment and Plan: Patient's creatinine last year mostly 1.4-1.9. Patient's creatinine is 2.6 on admission and better with IV fluids. Renal US showing medical renal disease and mild renal atrophy. Creatinine down to 1.6 at time of discharge (6) Congestive heart failure: Qualifiers: Heart failure chronicity: chronic Heart failure type: unspecified Qualified Code(s): I50.9 - Heart failure, unspecified Code(s): I50.9 - Heart failure, unspecified Status: Chronic Assessment and Plan: Echo in Nov 2019 showing EF 55% and Grade 1 diastolic dysfunction. Patient came in on Lasix, metoprolol and Entresto. Appears euvolemic. We continued her Lasix, Metoprolol and Entresto. (7) Closed head injury: Qualifiers: Encounter type: initial encounter Qualified Code(s): S09.90XA - Unspecified injury of head, initial encounter Code(s): S09.90XA - Unspecified injury of head, initial encounter Status: Acute Assessment and Plan: Patient had a fall with a closed head injury 10/[address] brain at that time. Repeat CT brain was negative 10/28. Menatal status normal and she remains at her baseline. (8) Hypertension: Qualifiers: Hypertension type: unspecified Qualified Code(s): I10 - Essential (primary) hypertension Code(s): I10 - Essential (primary) hypertension Status: Chronic Assessment and Plan: BP monitored closely. BP low at times so Hydralazine stopped. BP better controlled. (9) Hypothyroidism: Qualifiers: Hypothyroidism type: unspecified Qualified Code(s): E03.9 - Hypothyroidism, unspecified Code(s): E03.9 - Hypothyroidism, unspecified Status: Chronic Assessment and Plan: TSH >100. Patient states she takes her Synthroid daily. Hypothyroidism could be contributing to her hyponatremia. We advanced her levothyroxine. (10) Anxiety and depression: Code(s): F41.9 - Anxiety disorder, unspecified; F32.9 - Major depressive disorder, single episode, unspecified Status: Acut
[2020-10-31 11:13] VITALS: BP 99/58; PULSE 88
[2020-10-31 11:28] VITALS: BP 97/57
--- NOTE | 2020-10-31 12:20 | PC.NURSE ---
Pt need for transfer to IMU. Patient not keeping Bipap on, ABG's not stable. MD would like closer watch of her, and we cannot keep her on continuous on this unit.
[2020-11-01 10:11] LABS: ANCA Screen Negative (Negative)
[2020-11-02 21:40] LABS: Chloride Rand Ur 59 mmol/L (32-290); Chloride/Creatinine Rand Ur 111 (38-318); Creatinine Random Urine 53 mg/dL (20-275)
[2020-11-03 02:04] LABS: Cryoglobulin, QL Negative (Negative)
--- NOTE | 2020-11-03 13:18 | PC.NURSE ---
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 Mancini aware of the above. FRANCIA results faxed to Etelvina Evans, EXP[employer]ER [employer] ORDER
[2020-11-05 14:31] LABS: Anti Streptolysin O Screen <50 IU/mL (<200)
== END 2020-10-31 13:00 | disposition home health service (06) ==
LOC: ANHED 09:58 → ANH3MED 18:21 → ANH2MED 11-02 12:27 → ANH3MED 11-02 12:27
PROVIDERS: Internal Medicine Nephrology; Nurse Practitioner; Admitting Provider Family Medicine; Emergency Provider Emergency Medicine; PCP Nurse Practitioner Family; Visit Provider Internal Medicine
DX: S70.02XA Contusion of left hip, initial encounter (principal); E87.1 Hypo-osmolality and hyponatremia; I48.91 Unspecified atrial fibrillation; I13.0 Hypertensive heart and chronic kidney disease with heart failure and stage 1 through stage 4 chronic kidney disease, or unspecified chronic kidney disease; I50.40 Unspecified combined systolic (congestive) and diastolic (congestive) heart failure; N39.0 Urinary tract infection, site not specified; B96.89 Other specified bacterial agents as the cause of diseases classified elsewhere; N17.9 Acute kidney failure, unspecified; N18.32 Chronic kidney disease, stage 3b; W19.XXXA Unspecified fall, initial encounter; S00.03XA Contusion of scalp, initial encounter; D64.9 Anemia, unspecified; E03.9 Hypothyroidism, unspecified; E78.5 Hyperlipidemia, unspecified; F41.8 Other specified anxiety disorders; G89.29 Other chronic pain; H91.90 Unspecified hearing loss, unspecified ear; I25.10 Atherosclerotic heart disease of native coronary artery without angina pectoris; R07.9 Chest pain, unspecified; Z95.1 Presence of aortocoronary bypass graft; Z96.653 Presence of artificial knee joint, bilateral; Z95.5 Presence of coronary angioplasty implant and graft; Z96.643 Presence of artificial hip joint, bilateral
CPT/HCPCS: 36415; 36430; 70450; 73521; 76775; 80048; 80053; 80069; 80076; 81001; 82436; 82533; 82550; 82570; 82595; 83520; 83735; 83883; 83930; 83935; 84100; 84133; 84155; 84156; 84165; 84166; 84295; 84300; 84439; 84443; 85014; 85018; 85025; 85652; 85999; 86021; 86038; 86039; 86060; 86140; 86160; 86162; 86215; 86225; 86235; 86334; 86335; 86703; 86705; 86706; 86803; 86850; 86900; 86901; 86923; 87077; 87086; 87088; 87186; 87340; 96360; 96361; 96365; 96366; 97110; 97116; 97161; 97165; 97530; 97535; 99285; A9270; G0378; G0432; J0696; J7030; J7050; P9016

== ENCOUNTER 2020-11-15 23:45 | Emergency (ER) | payer MEDICARE, SELFPAY ==
--- NOTE | ~2020-11-15 | XR_ITS ---
EXAMINATION: XR chest 2V DATE: 11/16/2020 00:22 INDICATION: Chest pain. TECHNIQUE: Frontal and lateral views of the chest were obtained. COMPARISON: Chest single view 10/23/2020, chest CT 06/29/2020 FINDINGS: There is no pneumonia, pleural effusion, or pneumothorax. Cardiomegaly is noted. Calcified hilar and mediastinal lymph nodes are consistent with old granulomatous disease. IMPRESSION: 1. Cardiomegaly. Reviewed, dictated and finalized at location A. AL DEVELOPER IMPRESSION: 1. Cardiomegaly.
[2020-11-15 23:50] VITALS: BP 163/86; PULSE 61; RESP 20; TEMP 36.8; O2SAT 99
--- NOTE | 2020-11-15 23:53 | ECG_ITS ---
Measurements Intervals [place] Rate: 60 P: 81 NV: 166 QRS: -68 QRSD: 100 T: 38 QT: 427 QTc: 429 Interpretive Statements SINUS RHYTHM LEFT AXIS DEVIATION ANTEROSEPTAL INFARCT, AGE INDETERMINATE ABNORMAL ECG Electronically Signed On 11-16-2020 6:59:41 SENIOR BUSINESS CONSULTANT by Marlon Joe D.O.
[2020-11-16 00:09] LABS: Basophils Percent Auto 0.5 % (0.2-1.2); Eosinophils Absolute Auto 0.1 K/mm3 (0-0.3); Eosinophils Percent Auto 1.5 % (0-4.4); Hematocrit 25.7 % (37.0-47.0); Hemoglobin 8.2 g/dL (12.0-15.0); Immature Granulocyte Absolute 0.04 K/mm3 (0.00-0.031); Lymphocytes Absolute Auto 0.97 K/mm3 (0.9-3.2); Lymphocytes Percent Auto 23.7 % (18.3-44.2); Mean Corpuscular HGB Conc 31.9 g/dl (32-36); Mean Corpuscular Hemoglobin 32.3 pg (26-34); Mean Corpuscular Volume 101.2 fl (80-100); Mean Platelet Volume 9.6 fl (7.4-10.4); Monocytes Absolute Auto 0.4 K/mm3 (0.1-0.6); Monocytes Percent Auto 9.5 % (2.6-8.5); Neutrophils Absolute Auto 2.6 K/mm3 (1.3-6.7); Neutrophils Percent Auto 63.8 % (45.5-73.1); Platelet Count Result 244 k/mm3 (150-375); Red Blood Count 2.54 M/mm3 (4.2-5.4); Red Cell Distribution Width 14.5 % (11.5-14.5); White Blood Count 4.1 K/mm3 (4.5-10.0)
[2020-11-16 00:23] LABS: Anion Gap 6 mmol/L (8-16); Blood Urea Nitrogen 27 mg/dL (7-17); Carbon Dioxide 30 mmol/L (22-30); Chloride 99 mmol/L (98-107); Estimated CRCL calculation 15 ml/min; Estimated Glomerular Filt Rate 25; Glucose 86 mg/dL (65-105); Potassium 3.6 mmol/L (3.4-5.0); Sodium 135 mmol/L (137-145)
[2020-11-16 00:30] LABS: INR 0.9
[2020-11-16 00:31] LABS: Partial Thromboplastin Time 30.2 SECONDS (22.3-36.8)
[2020-11-16 00:35] LABS: Troponin I < 0.012 ng/mL (0.000-0.034)
[2020-11-16] MEDS: HYDROcodone/acetaminophen (*CRX) 5-325 MG TABLET 1 TAB PO (01:51)
--- NOTE | 2020-11-16 02:18 | ED.GENADULT ---
HPI - General Adult General Chief complaint: Back Pain/Injury Stated complaint: Multiple complaints Time Seen by Provider: 11/16/20 00:51 History of Present Illness HPI narrative: Patient is an 80-year-old female who presents ER with chest pain and back pain. Patient reports she is having reactivation of her chronic chest pain has been ongoing for the last couple days. Its in the center of her chest and nonradiating. No relief with [id number] pain medication at home. Denies any trauma. Does not worsen with exertion. She also has some back pain that she has been struggling last since a fall 1 month ago. She has not yet followed up with her new primary care physician. She has noted swelling in her legs. No nausea/vomiting/dizziness. This is a typical presentation for her to come to the ER. Patient was hospitalized about 1 month ago after sudden fall due to hyponatremia and weakness. There were no fractures associated with her fall. Related Data Home Medications Medication Instructions Recorded Confirmed Entresto 1 tablet PO Q12H 09/01/19 10/27/20 alprazolam 0.5 mg PO TID PRN 09/01/19 10/27/20 clopidogrel 75 mg PO DAILY 09/01/19 10/27/20 metoprolol succinate 50 mg PO DAILY 09/01/19 10/27/20 nitroglycerin 0.4 mg SUBLINGUAL Q5M PRN 09/01/19 10/28/20 trazodone 100 mg PO HS 09/01/19 10/27/20 ferrous sulfate 325 mg PO DAILY 09/06/19 10/27/20 prednisolone acetate 1 % RIGHTEYE DAILY 09/06/19 10/27/20 oxybutynin chloride 10 mg PO DAILY 03/20/20 10/27/20 acyclovir 1,000 mg PO DAILY 05/31/20 10/27/20 sertraline 25 mg PO DAILY 06/16/20 10/27/20 furosemide 20 mg PO DAILY 07/02/20 10/27/20 Allergies Allergy/AdvReac Type Severity Reaction Status Date / Time Penicillins Allergy Unknown Rash Verified 10/27/20 09:06 Review of Systems Review of Systems: All systems reviewed & are unremarkable except as noted in HPI and below Constitutional: Constitutional: Denies chills, Denies fever(s) and Denies weakness ENT: Denies nasal congestion and Denies sore throat Cardiovascular: Cardiovascular: Reports chest pain, Denies rapid heart rate and Denies radiating jaw, neck or arm pain Respiratory: Respiratory: Denies cough, Denies dyspnea and Denies wheezing Gastrointestinal: Gastrointestinal: Denies abdominal pain, Denies nausea and Denies vomiting Musculoskeletal: Musculoskeletal: Reports back pain, Denies arthralgias, Denies joint swelling and Denies muscle cramps [facility] Past Medical History Medical History (Updated 11/16/20 @ 02:24 by Pablito De Souza MD) Acute kidney failure, unspecified Anxiety and depression Chronic anemia Chronic kidney disease, stage 3 Chronic kidney disease, stage 3b Congestive heart failure Systolic and diastolic congestive heart failure Echo 11/27 showed EF 50%. Echo 01/14/2019: EF measured at 39%. September 2018 EF was 25%. Echo 12/02/2019 EF 50-55%. Grade 1 diastolic function. Coronary artery disease With multivessel surgical revascularization with PCI at [place] October 2017. Cardiac catheterization 10/17/2018-mild preserved intra-stent luminal diameter Current use of senior care anticoagulation Depression with anxiety Detached retina Right-sided, x2. Frequent headaches GERD (gastroesophageal reflux disease) With history of esophageal stricture requiring dilatation. History of GI bleed History of rectal polyps Hyperlipidemia Hypertension Hypothyroidism TSH in November 2019 was a bit low, with normal T4. Irritable bowel syndrome Ischemic cardiomyopathy Mitral valve prolapse Myasthenia gravis Questionable history of. Obstructive sleep apnea Ocular herpes zoster History of shingles to the left eye, on chronic antiviral therapy. Paroxysmal atrial fibrillation No longer on long-term anticoagulation due to history of falls. Peripheral neuropathy Rectal polyp Restless leg syndrome Shingles Solitary rectal ulcer syndrome Stage III chronic kidney disease Surgical History Surgical History
[2020-11-16 02:53] VITALS: BP 154/92; PULSE 67; RESP 18; TEMP 36.4; O2SAT 98
== END 2020-11-16 02:54 | disposition home or self-care (01) ==
PROVIDERS: Emergency Provider Emergency Medicine; PCP Family Medicine
DX: R07.89 Other chest pain (principal); I13.0 Hypertensive heart and chronic kidney disease with heart failure and stage 1 through stage 4 chronic kidney disease, or unspecified chronic kidney disease; N18.32 Chronic kidney disease, stage 3b; I50.40 Unspecified combined systolic (congestive) and diastolic (congestive) heart failure; D63.1 Anemia in chronic kidney disease; I25.10 Atherosclerotic heart disease of native coronary artery without angina pectoris; E78.5 Hyperlipidemia, unspecified; E03.9 Hypothyroidism, unspecified; I34.1 Nonrheumatic mitral (valve) prolapse; G47.33 Obstructive sleep apnea (adult) (pediatric); I48.0 Paroxysmal atrial fibrillation; G25.81 Restless legs syndrome; K21.9 Gastro-esophageal reflux disease without esophagitis; K58.9 Irritable bowel syndrome, unspecified; Z96.643 Presence of artificial hip joint, bilateral; F41.8 Other specified anxiety disorders; Z87.19 Personal history of other diseases of the digestive system; Z96.653 Presence of artificial knee joint, bilateral; Z98.42 Cataract extraction status, left eye; Z98.41 Cataract extraction status, right eye; R94.31 Abnormal electrocardiogram [ECG] [EKG]
CPT/HCPCS: 36415; 71046; 80048; 84484; 85025; 85610; 85730; 93005; 99284; A9270

== ENCOUNTER 2020-12-06 23:09 | Emergency (ER) | payer MEDICARE, SELFPAY ==
--- NOTE | ~2020-12-06 | XR_ITS ---
EXAMINATION: XR chest 1V DATE: 12/07/2020 00:20 INDICATION: Chest pain. TECHNIQUE: A single frontal view of the chest was obtained. COMPARISON: Chest 2 views 11/16/2020, CT abdomen and pelvis 12/07/2020 FINDINGS: There is mild scarring at the lung apices. No pleural effusion or pneumothorax. Cardiomegal y is noted. IMPRESSION: 1. Mild scarring at the lung apices. 2. Cardiomegaly. Reviewed, dictated and finalized at location A. OTIC ASSISTANT
--- NOTE | ~2020-12-06 | CT_ITS ---
EXAMINATION: CT abdomen pelvis wo con DATE: 12/07/2020 01:22 INDICATION: Epigastric abdominal pain. TECHNIQUE: Computed tomography (CT) of the abdomen and pelvis was performed without intravenous contr ast. Automated exposure control and iterative reconstruction technique were employed. The dose-length product was 240.46 mGy-cm. COMPARISON: CT abdomen and pelvis 09/02/2020 FINDINGS: The visualized portions of the lung bases demonstrate mild atelectasis. A calcified right l misbah nodule is consistent with old granulomatous disease. No pleural effusion. Cardiomegaly is noted. There are coronary artery calcifications. No pericardial effusion. Calcifications in the liver and sp lucas are consistent with old granulomatous disease. There are changes of cholecystectomy. There is mi ld intrahepatic biliary duct dilatation. The common duct is dilated to 12 mm. The pancreas and adrena l glands are normal. There are simple and hemorrhagic cysts in the kidneys measuring up to 1.7 cm on the left. There are no dilated loops of bowel. The appendix is not visualized. There are no pathologi joey enlarged lymph nodes. There is no free intraperitoneal fluid. 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 There are healing insufficiency fractures of the bilateral sacral ala and left inferior pubic ramus. There is a benign bone island in left ilium. There is lumbar levoscoliosis and severe sp ondylosis. IMPRESSION: 1. Mild intrahepatic and extrahepatic biliary duct dilatation, improved from 09/02/2020. 2. Healing insufficiency fractures of the bilateral sacral ala and left inferior pubic ramus. Reviewed, dictated and finalized at location A. STRIAL TECHNICIAN IMPRESSION: 1. Mild intrahepatic and extrahepatic biliary duct dilatation, improved from . 2. Healing insufficiency fractures of the bilateral sacral ala and left inferio r pubic ramus.
--- NOTE | ~2020-12-06 | XR_ITS ---
EXAMINATION: XR hip LT 2V w AP pelvis DATE: 12/07/2020 00:20 INDICATION: Left hip pain. TECHNIQUE: An anteroposterior view of the pelvis and 2 views of left hip were obtained. COMPARISON: Pelvis and hip radiographs 10/27/2020 FINDINGS: There are bilateral total hip arthroplasties in near-anatomic alignment with cables around the proximal femora. No periprosthetic lucency to suggest loosening or infection. No fracture. There is lumbar levoscoliosis and severe spondylosis. IMPRESSION: 1. 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 Reviewed, dictated and finalized at location A. TRICIAN SOUND
[2020-12-06 23:13] VITALS: BP 121/80; PULSE 91; RESP 16; TEMP 35.8; O2SAT 100
--- NOTE | 2020-12-06 23:46 | ED.GENADULT ---
HPI - General Adult General Chief complaint: Unspecified Stated complaint: left leg pain, stomach pain, chest pain Time Seen by Provider: 12/06/20 23:22 Source: patient Mode of arrival: ambulatory Limitations: no limitations History of Present Illness HPI narrative: Patient is an 80-year-old female complaining of chest pain, epigastric pain, left hip pain and left knee pain. Patient states that the chest pain epigastric pain started a few days ago, I have esophagitis . Patient has a history of chronic chest pain and abdominal pain, has had multiple ER visits at least once every few weeks for the chest pain. Patient states her epigastric pain is probably due to her esophagitis which she takes medications at home for it, but states that we usually give her some medication which helps with it. Patient states that her left hip and knee pain started a few months ago when she fell last month, and came to the emergency room when it happened. Denies any recent falls. Patient was able to ambulate since her fall 2 months ago but states that she continues to have pain, worse with movement and ambulation. Patient denies any shortness of breath, nausea, vomiting, diarrhea, fever or chills. Patient denies any calf pain or swelling. Related Data Home Medications Medication Instructions Recorded Confirmed Entresto 1 tablet PO Q12H 09/01/19 10/27/20 alprazolam 0.5 mg PO TID PRN 09/01/19 10/27/20 clopidogrel 75 mg PO DAILY 09/01/19 10/27/20 metoprolol succinate 50 mg PO DAILY 09/01/19 10/27/20 nitroglycerin 0.4 mg SUBLINGUAL Q5M PRN 09/01/19 10/28/20 trazodone 100 mg PO HS 09/01/19 10/27/20 ferrous sulfate 325 mg PO DAILY 09/06/19 10/27/20 prednisolone acetate 1 % RIGHTEYE DAILY 09/06/19 10/27/20 oxybutynin chloride 10 mg PO DAILY 03/20/20 10/27/20 acyclovir 1,000 mg PO DAILY 05/31/20 10/27/20 sertraline 25 mg PO DAILY 06/16/20 10/27/20 furosemide 20 mg PO DAILY 07/02/20 10/27/20 Allergies Allergy/AdvReac Type Severity Reaction Status Date / Time Penicillins Allergy Unknown Rash Verified 12/06/20 23:17 Review of Systems Review of Systems: All systems reviewed & are unremarkable except as noted in HPI and below Constitutional: Constitutional: Denies body ache(s), Denies chills, Denies excessive sweating, Denies fatigue, Denies fever(s), Denies headache(s), Denies lethargy, Denies malaise, Denies weakness and Denies weight loss Eyes: Eyes: Denies blurry vision, Denies change in vision and Denies loss of vision ENT: Denies dizziness, Denies ear discharge, Denies headache(s), Denies lip swelling, Denies epistaxis, Denies nasal congestion, Denies neck pain, Denies throat swelling and Denies tongue swelling Cardiovascular: Cardiovascular: Denies diaphoresis, Denies rapid heart rate, Denies edema, Denies irregular heart rhythm, Denies lightheadedness, Denies palpitations, Denies dyspnea and Denies dyspnea on exertion Respiratory: Respiratory: Denies chest congestion, Denies cough, Denies hemoptysis, Denies dyspnea and Denies dyspnea on exertion Gastrointestinal: Gastrointestinal: Denies melena, Denies hematochezia, Denies diarrhea, Denies nausea, Denies vomiting and Denies hematemesis Musculoskeletal: Musculoskeletal: Denies abnormal gait, Denies deformity, Denies joint swelling, Denies limited range of motion, Denies neck pain and Denies numbness Neurologic: Denies Abnormal speech present, Denies abnormal gait, Denies confusion, Denies dizziness, Denies headache(s), Denies focal weakness, Denies loss of vision, Denies numbness, Denies Other visual disturbances, Denies Sensory deficit (Neuro) and Denies weakness Psychiatric: Psychiatric: Denies confusion, Denies depression, Denies auditory hallucinations, Denies homicidal ideation and Denies suicidal ideation Endocrine: Endocrine: Denies cold intolerance, Denies excessive sweating, Denies fatigue, Denies heat intolerance and Denies palpitations Hematologic/Lymphatic: Hematologic/Lymphatic: Denies easy
[2020-12-06 23:56] LABS: Basophils Percent Auto 0.3 % (0.2-1.2); Eosinophils Percent Auto 0.9 % (0-4.4); Hematocrit 28.5 % (37.0-47.0); Hemoglobin 8.6 g/dL (12.0-15.0); Immature Granulocyte Absolute 0.02 K/mm3 (0.00-0.031); Immature Granulocyte Percent A 0.6 % (0-0.5); Lymphocytes Absolute Auto 0.78 K/mm3 (0.9-3.2); Lymphocytes Percent Auto 24.4 % (18.3-44.2); Mean Corpuscular HGB Conc 30.2 g/dl (32-36); Mean Corpuscular Hemoglobin 32.7 pg (26-34); Mean Corpuscular Volume 108.4 fl (80-100); Mean Platelet Volume 9.7 fl (7.4-10.4); Monocytes Absolute Auto 0.4 K/mm3 (0.1-0.6); Monocytes Percent Auto 10.9 % (2.6-8.5); Neutrophils Percent Auto 62.9 % (45.5-73.1); Platelet Count Result 213 k/mm3 (150-375); Red Blood Count 2.63 M/mm3 (4.2-5.4); Red Cell Distribution Width 14.5 % (11.5-14.5); White Blood Count 3.2 K/mm3 (4.5-10.0)
[2020-12-07 00:10] LABS: Alanine Aminotransferase 21 U/L (4-35); Albumin Level 3.8 g/dL (3.5-5.1); Alkaline Phosphatase 177 U/L (38-126); Anion Gap 9 mmol/L (8-16); Aspartate Amino Transferase 31 U/L (14-36); Bilirubin,Total 0.3 mg/dL (0.2-1.3); Blood Urea Nitrogen 52 mg/dL (7-17); Calcium 8.4 mg/dL (8.4-10.2); Carbon Dioxide 22 mmol/L (22-30); Chloride 110 mmol/L (98-107); Estimated CRCL calculation 15 ml/min; Estimated Glomerular Filt Rate 24; Glucose 81 mg/dL (65-105); Lipase 647 U/L (23-300); Potassium 4.2 mmol/L (3.4-5.0); Sodium 141 mmol/L (137-145)
[2020-12-07 00:20] LABS: NT Pro B Type Natriuretic Pept 189 PG/ML (5-100); Troponin I < 0.012 ng/mL (0.000-0.034)
--- NOTE | 2020-12-07 01:17 | PC.NURSE ---
Patient in radiology
[2020-12-07] MEDS: LACTATED RINGERS 1,000 ML 500 ML IV CONT (01:50)
[2020-12-07 01:57] VITALS: BP 151/80; PULSE 63; RESP 14; O2SAT 99
--- NOTE | 2020-12-07 02:16 | ECG_ITS ---
Measurements Intervals [place] Rate: 71 P: 80 ND: 167 QRS: -26 QRSD: 97 T: 45 QT: 404 QTc: 440 Interpretive Statements SINUS RHYTHM ANTEROSEPTAL INFARCT, AGE INDETERMINATE BASELINE ARTIFACT- II, AVR, AVF ABNORMAL ECG Electronically Signed On 12-07-2020 6:55:09 ELECTRICAL WIRING LINEMAN by Marlon Joe D.O.
[2020-12-07] MEDS: HYDROcodone/acetaminophen (*CRX) 5-325 MG TABLET 1 TAB PO (02:27)
--- NOTE | 2020-12-07 02:58 | PC.NURSE ---
Per EDSai Mclean, give 500mL Lactated Ringer.
[2020-12-07 02:59] VITALS: BP 135/75; PULSE 64; RESP 18; TEMP 36.8; O2SAT 99
== END 2020-12-07 03:02 | disposition home or self-care (01) ==
PROVIDERS: Emergency Provider Emergency Medicine; PCP Family Medicine
DX: R07.89 Other chest pain (principal); R10.13 Epigastric pain; M25.562 Pain in left knee; M25.552 Pain in left hip; I13.0 Hypertensive heart and chronic kidney disease with heart failure and stage 1 through stage 4 chronic kidney disease, or unspecified chronic kidney disease; N18.32 Chronic kidney disease, stage 3b; I50.40 Unspecified combined systolic (congestive) and diastolic (congestive) heart failure; D63.1 Anemia in chronic kidney disease; I25.10 Atherosclerotic heart disease of native coronary artery without angina pectoris; E78.5 Hyperlipidemia, unspecified; E03.9 Hypothyroidism, unspecified; I34.1 Nonrheumatic mitral (valve) prolapse; G47.33 Obstructive sleep apnea (adult) (pediatric); I48.0 Paroxysmal atrial fibrillation; G25.81 Restless legs syndrome; K21.9 Gastro-esophageal reflux disease without esophagitis; F41.8 Other specified anxiety disorders; K58.9 Irritable bowel syndrome, unspecified; Z96.643 Presence of artificial hip joint, bilateral; Z96.653 Presence of artificial knee joint, bilateral; Z87.19 Personal history of other diseases of the digestive system; Z98.42 Cataract extraction status, left eye; Z98.41 Cataract extraction status, right eye; R94.31 Abnormal electrocardiogram [ECG] [EKG]; I51.7 Cardiomegaly
CPT/HCPCS: 36415; 71045; 73502; 74176; 80053; 83690; 83880; 84484; 85025; 93005; 96360; 99284; A9270; J7120

== ENCOUNTER 2020-12-07 16:25 | Emergency (ER) | payer MEDICARE, SELFPAY ==
[2020-12-07] VITALS (10 sets, daily range): BP systolic 118–151; BP diastolic 69–103; PULSE 74–90; RESP 12–20; TEMP 36.6; O2SAT 96–100
--- NOTE | ~2020-12-07 | XR_ITS ---
EXAMINATION: XR chest 1V portable INDICATION: Right-sided chest pain TECHNIQUE: Portable AP chest at 1722 hours COMPARISON: 12/06/2020 FINDINGS: The lungs are hyperinflated but free of acute opacities. Scarring is noted in the lung apic es. Cardiomegaly is noted. There is no pleural effusion or pneumothorax.. Surgical clips in the right upper quadrant are likely from prior cholecystectomy. Coronary artery stents are noted. IMPRESSION: 1. Cardiomegaly. Reviewed, dictated and finalized at location A. OR SUPPORT ENGINEER IMPRESSION: 1. Cardiomegaly.
--- NOTE | 2020-12-07 16:43 | ECG_ITS ---
Measurements Intervals [place] Rate: 81 P: 83 RI: 147 QRS: -7 QRSD: 97 T: 52 QT: 373 QTc: 435 Interpretive Statements SINUS RHYTHM ATRIAL PREMATURE COMPLEX LOW QRS VOLTAGE IN LIMB LEADS ANTEROSEPTAL INFARCT, AGE INDETERMINATE ABNORMAL ECG Electronically Signed On 12-08-2020 7:00:29 IN MOLD COATER by Marlon Joe D.O.
--- NOTE | 2020-12-07 16:58 | ED.GENADULT ---
HPI - General Adult General Chief complaint: Chest Pain <ZACKARY Burks Last Filed: 12/07/20 19:36> Stated complaint: Chest pain, right side <Lili Hopson PA-C - Last Filed: 12/07/20 19:36> Time Seen by Provider: 12/07/20 16:52 <Lili Hopson PA-C - Last Filed: 12/07/20 19:36> [facility] <ZACKARY Burks Last Filed: 12/07/20 19:36> Mode of arrival: ambulatory <ZACKARY Burks Last Filed: 12/07/20 19:36> Limitations: no limitations <Lili Hopson PA-C - Last Filed: 12/07/20 19:36> History of Present Illness HPI narrative: Patient is here with her for evaluation of right-sided chest pain that she states is a 9 out of 10 at this time. She states the pain started last evening but is a little better today. It is not typical of her esophagitis pain that she is frequently treated for. She states the pain radiates to midline and stops it is not exacerbated by breathing or movement. She has a monitor at home and states that when she checked her heart rate and blood pressure this morning her heart rate was high and her blood pressure was high but she could not remember the numbers. Her also did let me know that she is still having left leg pain associated with a fall that had occurred in October. <ZACKARY Burks Last Filed: 12/07/20 19:36> Onset (ago): hour(s) <ZACKARY Burks Last Filed: 12/07/20 19:36> Associated symptoms: denies other symptoms <ZACKARY Burks Last Filed: 12/07/20 19:36> Related Data Home medications: Home Medications Medication Instructions Recorded Confirmed aspirin 12/07/20 12/07/20 atorvastatin 12/07/20 clopidogrel 12/07/20 ferrous sulfate mg 12/07/20 furosemide 12/07/20 hydralazine 12/07/20 levothyroxine 12/07/20 lidocaine HCl [Lidocaine Viscous] 12/07/20 metoprolol succinate PO 12/07/20 nitroglycerin mg 12/07/20 oxybutynin chloride mg PO 12/07/20 pantoprazole PO 12/07/20 potassium chloride meq PO 12/07/20 prednisone 12/07/20 pregabalin 12/07/20 sacubitril-valsartan [Entresto] 12/07/20 sertraline mg 12/07/20 spironolactone 12/07/20 sucralfate 12/07/20 trazodone 12/07/20 <Lili Hopson PA-C - Last Filed: 12/07/20 19:36> Allergies/adverse reactions: Allergies Allergy/AdvReac Type Severity Reaction Status Date / Time Penicillins Allergy Unknown Rash Verified 12/07/20 18:10 <Lili Hopson PA-C - Last Filed: 12/07/20 19:36> Review of Systems Review of Systems: All systems reviewed & are unremarkable except as noted in HPI and below <Lili Hopson PA-C - Last Filed: 12/07/20 19:36> [facility] Past Medical History Medical History: Medical History Acute kidney failure, unspecified Anxiety and depression Chronic anemia Chronic kidney disease, stage 3 Chronic kidney disease, stage 3b Congestive heart failure Systolic and diastolic congestive heart failure Echo 11/27 showed EF 50%. Echo 01/14/2019: EF measured at 39%. September 2018 EF was 25%. Echo 12/02/2019 EF 50-55%. Grade 1 diastolic function. Coronary artery disease With multivessel surgical revascularization with PCI at [place] October 2017. Cardiac catheterization 10/17/2018-mild preserved intra-stent luminal diameter Current use of metallurgical engineer anticoagulation Depression with anxiety Detached retina Right-sided, x2. Frequent headaches GERD (gastroesophageal reflux disease) With history of esophageal stricture requiring dilatation. History of GI bleed History of rectal polyps Hyperlipidemia Hypertension Hypothyroidism TSH in November 2019 was a bit low, with normal T4. Irritable bowel syndrome Ischemic cardiomyopathy Mitral valve prolapse Myasthenia gravis Questionable history of. Obstructive sleep apnea Ocular herpes zoster History of shingles to the left eye, on
[2020-12-07 17:15] LABS: Basophils Percent Auto 0.2 % (0.2-1.2); Eosinophils Absolute Auto 0.1 K/mm3 (0-0.3); Eosinophils Percent Auto 1.2 % (0-4.4); Hematocrit 33.4 % (37.0-47.0); Hemoglobin 10.4 g/dL (12.0-15.0); Immature Granulocyte Absolute 0.02 K/mm3 (0.00-0.031); Immature Granulocyte Percent A 0.5 % (0-0.5); Lymphocytes Absolute Auto 0.93 K/mm3 (0.9-3.2); Lymphocytes Percent Auto 22.7 % (18.3-44.2); Mean Corpuscular HGB Conc 31.1 g/dl (32-36); Mean Corpuscular Hemoglobin 33.2 pg (26-34); Mean Corpuscular Volume 106.7 fl (80-100); Mean Platelet Volume 10.1 fl (7.4-10.4); Monocytes Absolute Auto 0.4 K/mm3 (0.1-0.6); Monocytes Percent Auto 10.5 % (2.6-8.5); Neutrophils Absolute Auto 2.7 K/mm3 (1.3-6.7); Neutrophils Percent Auto 64.9 % (45.5-73.1); Platelet Count Result 230 k/mm3 (150-375); Red Blood Count 3.13 M/mm3 (4.2-5.4); Red Cell Distribution Width 14.3 % (11.5-14.5); White Blood Count 4.1 K/mm3 (4.5-10.0)
[2020-12-07 17:37] LABS: NT Pro B Type Natriuretic Pept 547 PG/ML (5-100)
[2020-12-07 17:41] LABS: Alanine Aminotransferase 23 U/L (4-35); Albumin Level 4.4 g/dL (3.5-5.1); Alkaline Phosphatase 179 U/L (38-126); Anion Gap 12 mmol/L (8-16); Aspartate Amino Transferase 35 U/L (14-36); Bilirubin,Total 0.4 mg/dL (0.2-1.3); Blood Urea Nitrogen 46 mg/dL (7-17); Calcium 8.6 mg/dL (8.4-10.2); Carbon Dioxide 17 mmol/L (22-30); Chloride 111 mmol/L (98-107); Estimated CRCL calculation 17 ml/min; Estimated Glomerular Filt Rate 29; Glucose 69 mg/dL (65-105); Lipase 629 U/L (23-300); Potassium 4.9 mmol/L (3.4-5.0); Sodium 140 mmol/L (137-145)
[2020-12-07 17:55] LABS: Troponin I < 0.012 ng/mL (0.000-0.034)
[2020-12-07] MEDS: BELLADONNA ALK/PHENOB ELIX 10 ML, MAG HYDROX/ALUMINUM HYD/SIMETH 30 ML, LIDOCAINE HCL 2... PO (19:06)
== END 2020-12-07 19:45 | disposition home or self-care (01) ==
PROVIDERS: Physician Assistant; Emergency Provider General Practice; PCP Family Medicine
DX: R07.89 Other chest pain (principal); K21.9 Gastro-esophageal reflux disease without esophagitis; I13.0 Hypertensive heart and chronic kidney disease with heart failure and stage 1 through stage 4 chronic kidney disease, or unspecified chronic kidney disease; N18.32 Chronic kidney disease, stage 3b; I50.40 Unspecified combined systolic (congestive) and diastolic (congestive) heart failure; D63.1 Anemia in chronic kidney disease; I25.10 Atherosclerotic heart disease of native coronary artery without angina pectoris; E78.5 Hyperlipidemia, unspecified; E03.9 Hypothyroidism, unspecified; I34.1 Nonrheumatic mitral (valve) prolapse; G47.33 Obstructive sleep apnea (adult) (pediatric); I48.0 Paroxysmal atrial fibrillation; G25.81 Restless legs syndrome; F41.9 Anxiety disorder, unspecified; K58.9 Irritable bowel syndrome, unspecified; Z96.643 Presence of artificial hip joint, bilateral; Z96.653 Presence of artificial knee joint, bilateral; Z87.19 Personal history of other diseases of the digestive system; Z98.42 Cataract extraction status, left eye; Z98.41 Cataract extraction status, right eye; I51.7 Cardiomegaly; I49.1 Atrial premature depolarization; R94.31 Abnormal electrocardiogram [ECG] [EKG]
CPT/HCPCS: 36415; 71045; 80053; 83690; 83880; 84484; 85025; 93005; 99284; A9270

== ENCOUNTER 2020-12-15 16:27 | Emergency (ER) | payer MEDICARE, SELFPAY ==
--- NOTE | ~2020-12-15 | XR_ITS ---
XR chest 2V 12/15/2020 17:05 Indication: Midsternal chest pain Procedure: 2 view chest Comparison: Comparison to multiple prior studies sequentially, with oldest reviewed study dated 10/23. Findings: Cardiomegaly. There are changes of right clavicular osteotomy. There are coronary stents. T he lungs are hyperinflated which is consistent with, but not diagnostic of chronic obstructive pulmon morales disease. No focal air space disease, pulmonary edema, pleural effusion or suspected pneumothorax. Impression: 1: No acute cardiopulmonary disease. Reviewed, dictated and finalized at location A. OR CLINICAL RESEARCH SCIENTIST Impression: 1: No acute cardiopulmonary disease.
[2020-12-15 16:36] VITALS: BP 129/83; PULSE 73; RESP 19; TEMP 36.6; O2SAT 98
--- NOTE | 2020-12-15 16:36 | ECG_ITS ---
Measurements Intervals [place] Rate: 73 P: 78 MT: 147 QRS: -25 QRSD: 90 T: 47 QT: 380 QTc: 419 Interpretive Statements SINUS RHYTHM ATRIAL PREMATURE COMPLEXES ANTEROSEPTAL INFARCT, AGE INDETERMINATE ABNORMAL ECG Electronically Signed On 12-15-2020 18:14:58 GAS CHARGER by Marlon Joe D.O.
[2020-12-15 16:45] VITALS: PULSE 69
[2020-12-15 16:49] VITALS: O2SAT 98
[2020-12-15 17:02] LABS: Basophils Percent Auto 0.3 % (0.2-1.2); Eosinophils Percent Auto 0.9 % (0-4.4); Hematocrit 27.5 % (37.0-47.0); Hemoglobin 8.6 g/dL (12.0-15.0); Immature Granulocyte Absolute 0.02 K/mm3 (0.00-0.031); Immature Granulocyte Percent A 0.6 % (0-0.5); Lymphocytes Absolute Auto 0.76 K/mm3 (0.9-3.2); Lymphocytes Percent Auto 22.7 % (18.3-44.2); Mean Corpuscular HGB Conc 31.3 g/dl (32-36); Mean Corpuscular Hemoglobin 32.5 pg (26-34); Mean Corpuscular Volume 103.8 fl (80-100); Mean Platelet Volume 9.9 fl (7.4-10.4); Monocytes Absolute Auto 0.5 K/mm3 (0.1-0.6); Neutrophils Absolute Auto 2.1 K/mm3 (1.3-6.7); Neutrophils Percent Auto 61.5 % (45.5-73.1); Platelet Count Result 233 k/mm3 (150-375); Red Blood Count 2.65 M/mm3 (4.2-5.4); Red Cell Distribution Width 14.2 % (11.5-14.5); White Blood Count 3.4 K/mm3 (4.5-10.0)
--- NOTE | 2020-12-15 17:04 | ED.CHESTPAIN ---
HPI - Chest Pain General Chief Complaint: Chest Pain Stated Complaint: chest pain. palpations Time Seen by Provider: 12/15/20 17:02 Source: patient Mode of arrival: ambulatory Limitations: no limitations History of Present Illness HPI narrative: Patient is an 80-year-old female complaining of chest pain and palpitations accompanied by shortness of breath started this morning. Patient has had multiple ER visits due to this, usually here every week for the same complaint. Denies any abdominal pain, nausea, vomiting, fever or chills. MD complaint: chest discomfort Pain location: substernal Pain radiation: none Severity: moderate Quality: tightness Relieving factors: nothing Exacerbating factors: nothing Related Data Home Medications Medication Instructions Recorded Confirmed hydralazine 12/07/20 12/15/20 pregabalin 12/07/20 12/15/20 spironolactone 12/07/20 12/15/20 sucralfate 12/07/20 12/15/20 alprazolam 0.5 mg tablet 0.5 mg PO DAILY 12/15/20 aspirin 81 mg tablet,delayed 81 mg PO DAILY 12/15/20 release clopidogrel 75 mg tablet 75 mg PO DAILY 12/15/20 ferrous sulfate 325 mg (65 mg 325 mg PO DAILY 12/15/20 iron) tablet furosemide 20 mg tablet 20 mg PO QAM 12/15/20 hyoscyamine sulfate 0.125 mg 0.125 mg PO QID 12/15/20 sublingual tablet levothyroxine 175 mcg capsule 175 mcg PO DAILY 12/15/20 lidocaine HCl 2 % mucosal jelly 1 applic TOPICAL TID PRN 12/15/20 metoprolol succinate 50 mg 50 mg PO DAILY 12/15/20 tablet,extended release 24 hr nitroglycerin 0.4 mg sublingual 0.4 mg SUBLINGUAL Q5M PRN 12/15/20 tablet oxybutynin chloride 10 mg 10 mg PO DAILY 12/15/20 tablet,extended release 24 hr pantoprazole 40 mg tablet,delayed 40 mg PO QAM 12/15/20 release prednisolone acetate 1 % eye 1 drp RIGHT EYE Q12H 12/15/20 drops,suspension sacubitril 24 mg-valsartan 26 mg 1 tablet PO BID 12/15/20 tablet sertraline 25 mg tablet 25 mg PO DAILY 12/15/20 trazodone 100 mg tablet 100 mg PO QHS PRN 12/15/20 Allergies Allergy/AdvReac Type Severity Reaction Status Date / Time Penicillins Allergy Unknown Rash Verified 12/15/20 08:48 Review of Systems Review of Systems: All systems reviewed & are unremarkable except as noted in HPI and below Constitutional: Constitutional: Denies body ache(s), Denies chills, Denies excessive sweating, Denies fatigue, Denies fever(s), Denies headache(s), Denies lethargy, Denies malaise, Denies weakness and Denies weight loss Eyes: Eyes: Denies blurry vision, Denies change in vision and Denies loss of vision ENT: Denies dizziness, Denies ear discharge, Denies headache(s), Denies lip swelling, Denies epistaxis, Denies nasal congestion, Denies neck pain, Denies throat swelling and Denies tongue swelling Cardiovascular: Cardiovascular: Denies diaphoresis, Denies rapid heart rate, Denies edema, Denies irregular heart rhythm and Denies lightheadedness Respiratory: Respiratory: Denies chest congestion, Denies cough and Denies hemoptysis Gastrointestinal: Gastrointestinal: Denies abdominal pain, Denies melena, Denies hematochezia, Denies diarrhea, Denies nausea, Denies vomiting and Denies hematemesis Musculoskeletal: Musculoskeletal: Denies abnormal gait, Denies deformity, Denies joint swelling, Denies limited range of motion, Denies neck pain and Denies numbness Neurologic: Denies Abnormal speech present, Denies abnormal gait, Denies confusion, Denies dizziness, Denies headache(s), Denies focal weakness, Denies loss of vision, Denies numbness, Denies Other visual disturbances, Denies Sensory deficit (Neuro) and Denies weakness Psychiatric: Psychiatric: Denies confusion, Denies depression, Denies auditory hallucinations, Denies homicidal ideation and Denies suicidal ideation Endocrine: Endocrine: Denies cold intolerance, Denies excessive sweating, Denies fatigue, Denies heat intolerance and Denies palpitations Hematologic/Lymphatic: Hematologic/Lymphatic: Denies easy bleeding an
[2020-12-15 17:11] LABS: Prothrombin Time 13.7 Seconds (11.1-14.7)
[2020-12-15 17:12] LABS: Partial Thromboplastin Time 27.1 SECONDS (22.3-36.8)
[2020-12-15 17:14] LABS: Anion Gap 7 mmol/L (8-16); Blood Urea Nitrogen 37 mg/dL (7-17); Carbon Dioxide 21 mmol/L (22-30); Chloride 110 mmol/L (98-107); Estimated CRCL calculation 18 ml/min; Estimated Glomerular Filt Rate 31; Glucose 99 mg/dL (65-105); Potassium 3.8 mmol/L (3.4-5.0); Sodium 138 mmol/L (137-145)
[2020-12-15] MEDS: ASPIRIN 81 MG CHEWABLE TABLET 324 MG PO (17:21)
[2020-12-15 17:25] LABS: Troponin I < 0.012 ng/mL (0.000-0.034)
[2020-12-15 17:55] VITALS: BP 130/79; PULSE 71; RESP 18; O2SAT 100
[2020-12-15 18:38] VITALS: BP 128/70; PULSE 74; RESP 12; O2SAT 99
[2020-12-15 19:20] VITALS: BP 117/77; PULSE 72; RESP 18; O2SAT 99
[2020-12-15 20:00] LABS: Troponin I < 0.012 ng/mL (0.000-0.034)
== END 2020-12-15 19:20 | disposition home or self-care (01) ==
PROVIDERS: Emergency Provider Emergency Medicine
DX: R07.89 Other chest pain (principal); I13.0 Hypertensive heart and chronic kidney disease with heart failure and stage 1 through stage 4 chronic kidney disease, or unspecified chronic kidney disease; N18.32 Chronic kidney disease, stage 3b; I50.40 Unspecified combined systolic (congestive) and diastolic (congestive) heart failure; D63.1 Anemia in chronic kidney disease; I25.10 Atherosclerotic heart disease of native coronary artery without angina pectoris; E78.5 Hyperlipidemia, unspecified; E03.9 Hypothyroidism, unspecified; I34.1 Nonrheumatic mitral (valve) prolapse; G47.33 Obstructive sleep apnea (adult) (pediatric); I48.0 Paroxysmal atrial fibrillation; G25.81 Restless legs syndrome; K21.9 Gastro-esophageal reflux disease without esophagitis; F41.8 Other specified anxiety disorders; K58.9 Irritable bowel syndrome, unspecified; Z96.643 Presence of artificial hip joint, bilateral; Z96.653 Presence of artificial knee joint, bilateral; Z87.19 Personal history of other diseases of the digestive system; Z98.42 Cataract extraction status, left eye; Z98.41 Cataract extraction status, right eye; I49.1 Atrial premature depolarization; R94.31 Abnormal electrocardiogram [ECG] [EKG]
CPT/HCPCS: 36415; 71046; 80048; 84484; 85025; 85610; 85730; 93005; 99284; A9270

== ENCOUNTER 2021-01-17 10:14 | Outpatient (CLI) | payer MEDICARE, SELFPAY | END 2021-01-17 10:15 | disposition home or self-care (01) | LOC: ANHCOVIDVC 10:14 | PROVIDERS: PCP Family Medicine | DX: Z23 Encounter for immunization (principal) | CPT/HCPCS: 0001A; 91300 ==

== ENCOUNTER 2021-02-07 10:18 | Outpatient (CLI) | payer MEDICARE, SELFPAY | END 2021-02-07 10:19 | disposition home or self-care (01) | LOC: ANHCOVIDVC 10:19 | PROVIDERS: PCP Family Medicine | DX: Z23 Encounter for immunization (principal) | CPT/HCPCS: 0002A; 91300 ==

== ENCOUNTER 2021-02-10 01:47 | Inpatient (IN) | payer MEDICARE, SELFPAY ==
[2021-02-10] VITALS (10 sets, daily range): BP systolic 132–186; BP diastolic 61–96; PULSE 61–81; RESP 16–20; TEMP 35.9–36.9; O2SAT 98–100; BMI 17.6
--- NOTE | ~2021-02-10 | XR_ITS ---
EXAMINATION: XR abdomen NG/feed tube insert INDICATION: Nasogastric tube insertion TECHNIQUE: Portable AP KUB-NG at 0535 hours COMPARISON: 05/22/2020 FINDINGS: The nasogastric tube coils the distal esophagus and ends with its tip in the midesophagus. Cardiomegaly is noted. There are multiple gas-filled loops of small bowel. IMPRESSION: 1. Nasogastric tube coiled in distal esophagus. Tube has been repositioned at the time of interpretat ion. Reviewed, dictated and finalized at location A. IMPRESSION: 1. Nasogastric tube coiled in distal esophagus. Tube has been repositioned at t he time of interpretation.
--- NOTE | ~2021-02-10 | XR_ITS ---
EXAMINATION: XR abdomen NG/feed tube insert INDICATION: Nasogastric tube placement TECHNIQUE: Portable AP KUB-NG at 0048 hours COMPARISON: 02/10/2021 FINDINGS: The nasogastric tube is in the stomach. Multiple gas-filled loops of bowel are unchanged. T he lung bases are clear. Cardiomegaly is noted. IMPRESSION: 1. Nasogastric tube in the stomach. Reviewed, dictated and finalized at location A.
--- NOTE | ~2021-02-10 | CT_ITS ---
EXAMINATION: CT abdomen pelvis w con INDICATION: Abdominal pain TECHNIQUE: Computed tomographic images of the abdomen and pelvis were obtained after the administrati on of 100 cc of Omnipaque 350 intravenous contrast. The dose-length product (DLP) was 251.60 mGy-cm. Automated exposure control and iterative reconstruction technique were employed. COMPARISON: 12/07/2020 FINDINGS: There is mild atelectasis of the visualized lung bases. Cardiomegaly is noted. The gallblad chintan is surgically absent. There is mild enlargement of the common bile duct and central intrahepatic ducts which is likely due to post cholecystectomy state. Punctate calcifications in otherwise normal appearing liver and spleen likely represent healed granulomatous disease. The pancreas and adrenal gl ands are normal. Cysts of the kidneys measure up to 1.6 cm on the left. There is calcified atheroscle rosis of the aorta and many of the other arteries. No pathologically enlarged abdominal or pelvic lym ph nodes are identified. There is a moderate volume of colonic stool. Multiple dilated loops of small bowel are present. The distal small bowel is decompressed. There is a possible transition point in t he pelvis although streak artifact from hip arthroplasties partially obscures visualization of the pe lvis. There are multiple phleboliths in the pelvis. There is severe lumbar spondylosis. A bone island is noted in the left ilium. There there are bilateral sacral insufficiency fractures. Also noted is a left inferior ramus insufficiency fracture. IMPRESSION: 1. Multiple dilated loops of small bowel with possible transition in the pelvis, ileus versus obstruc tion. Reviewed, dictated and finalized at location A. IMPRESSION: 1. Multiple dilated loops of small bowel with possible transition in the pelvis , ileus versus obstruction.
--- NOTE | ~2021-02-10 | XR_ITS ---
EXAMINATION: XR UGI water soluble w sbs DATE: 02/11/2021 10:12 INDICATION: Small bowel obstruction TECHNIQUE: Facility Engineer radiograph(s) of the abdomen was/were obtained. Water-soluble contrast was administe red through the nasogastric tube, and sequential radiographs of the abdomen were obtained until contr ast was noted to be in the proximal colon. Fluoroscopy exposure time was 1.9 minutes. The DAP for thi s procedure was 12.324 Gycm2. COMPARISON: 06/08/2020 FINDINGS: The nasogastric tube is in the stomach. No definitely dilated loops of small bowel are iden tified on the ict security specialist radiograph. There is a bone island of the left ilium. Multiple phleboliths are no jer in the pelvis. Changes of bilateral hip arthroplasty are noted. The stomach and proximal small ilia wel are unremarkable on the fluoroscopic images. Transit time from the stomach to proximal colon was approximately 45 minutes. There is normal caliber and mucosal fold pattern throughout the small bowel . IMPRESSION: 1. Unremarkable small bowel follow-through without evidence of bowel obstruction. Reviewed, dictated and finalized at location A. IMPRESSION: 1. Unremarkable small bowel follow-through without evidence of bowel obstructio nVictor Hugo
--- NOTE | ~2021-02-10 | XR_ITS ---
EXAMINATION: XR abdomen NG/feed tube rechec INDICATION: Possible nasogastric tube malpositioning TECHNIQUE: Portable AP KUB-NG at 0828 hours COMPARISON: 0543 hours FINDINGS: The tip of nasogastric tube remains in the stomach. The proximal side port is now seen near the gastroesophageal junction. Multiple gas-filled loops of bowel are again seen. Cardiomegaly is no jer. Cholecystectomy clips are present in the right upper quadrant. IMPRESSION: 1. Nasogastric tube in the stomach with proximal side port near the gastroesophageal junction. Tube c an be safely advanced 2 to 3 cm. Reviewed, dictated and finalized at location A. IMPRESSION: 1. Nasogastric tube in the stomach with proximal side port near the gastroesoph ageal junction. Tube can be safely advanced 2 to 3 cm.
--- NOTE | ~2021-02-10 | XR_ITS ---
EXAMINATION: XR abdomen/kub 1V INDICATION: Small bowel obstruction TECHNIQUE: Supine view the abdomen is obtained. COMPARISON: 0048 hours FINDINGS: The nasogastric tube is in the stomach. No definitely dilated loops of bowel are identified . The mid abdomen is relatively gasless. There is gas in the colon and rectum. There are multiple phl eboliths of the pelvis. A bone island is noted in the left ilium. Changes of bilateral total hip arth roplasty are noted. There is levoscoliosis of the lumbar spine. Cholecystectomy clips are present in the right upper quadrant. IMPRESSION: 1. No definitely dilated loops of bowel. Relatively gasless mid abdomen could be due to fluid-filled loops of small bowel. Reviewed, dictated and finalized at location A. IMPRESSION: 1. No definitely dilated loops of bowel. Relatively gasless mid abdomen could b e due to fluid-filled loops of small bowel.
--- NOTE | ~2021-02-10 | XR_ITS ---
EXAMINATION: XR abdomen NG/feed tube insert INDICATION: Nasogastric tube reinsertion TECHNIQUE: Portable AP KUB-NG at 0543 hours COMPARISON: 0535 hours FINDINGS: The repositioned nasogastric tube ends in the stomach. Cardiomegaly is noted. Multiple gas- filled loops of small bowel are again seen. IMPRESSION: 1. Repositioned nasogastric tube in the stomach. Reviewed, dictated and finalized at location A.
--- NOTE | 2021-02-10 02:01 | ECG_ITS ---
Measurements Intervals [place] Rate: 64 P: 74 WA: 142 QRS: -30 QRSD: 94 T: 23 QT: 447 QTc: 462 Interpretive Statements SINUS RHYTHM ANTEROSEPTAL INFARCT, AGE INDETERMINATE CONSIDER INFERIOR INFARCT, AGE INDETERMINATE BASELINE ARTIFACT- I, II, III ABNORMAL ECG Electronically Signed On 02-10-2021 6:26:10 CDT by Marlon Joe D.O.
[2021-02-10] MEDS: SODIUM CHLORIDE 0.9% IV 1,000 ML 999 ML IV CONT (02:41)
[2021-02-10] MEDS: ONDANSETRON INJ 4 MG/2 ML VIAL IV PUSH (02:41)
[2021-02-10] MEDS: PANTOPRAZOLE SODIUM IV 40 MG VIAL IV PUSH (02:41)
[2021-02-10 02:57] LABS: Basophils Percent Auto 0.3 % (0.2-1.2); Eosinophils Absolute Auto 0.1 K/mm3 (0-0.3); Eosinophils Percent Auto 2.7 % (0-4.4); Hematocrit 31.6 % (37.0-47.0); Immature Granulocyte Absolute 0.02 K/mm3 (0.00-0.031); Immature Granulocyte Percent A 0.5 % (0-0.5); Lymphocytes Absolute Auto 0.95 K/mm3 (0.9-3.2); Lymphocytes Percent Auto 25.3 % (18.3-44.2); Mean Corpuscular HGB Conc 31.6 g/dl (32-36); Mean Corpuscular Hemoglobin 31.3 pg (26-34); Mean Corpuscular Volume 98.8 fl (80-100); Monocytes Absolute Auto 0.5 K/mm3 (0.1-0.6); Monocytes Percent Auto 14.1 % (2.6-8.5); Neutrophils Absolute Auto 2.2 K/mm3 (1.3-6.7); Neutrophils Percent Auto 57.1 % (45.5-73.1); Platelet Count Result 196 k/mm3 (150-375); Red Cell Distribution Width 12.2 % (11.5-14.5); White Blood Count 3.8 K/mm3 (4.5-10.0)
[2021-02-10 03:06] LABS: Alanine Aminotransferase 14 U/L (4-35); Albumin Level 3.8 g/dL (3.5-5.1); Alkaline Phosphatase 106 U/L (38-126); Anion Gap 6 mmol/L (8-16); Aspartate Amino Transferase 30 U/L (14-36); Bilirubin,Total 0.2 mg/dL (0.2-1.3); Blood Urea Nitrogen 20 mg/dL (7-17); Calcium 9.2 mg/dL (8.4-10.2); Carbon Dioxide 23 mmol/L (22-30); Chloride 111 mmol/L (98-107); Estimated Glomerular Filt Rate 48; Glucose 97 mg/dL (65-105); Lactic Acid Reflex 0.9 mmol/L (0.7-2.1); Potassium 4.1 mmol/L (3.4-5.0); Sodium 140 mmol/L (137-145)
[2021-02-10 03:17] LABS: Troponin I < 0.012 ng/mL (0.000-0.034)
[2021-02-10 03:39] LABS: Add Urine Microscopic? YES; Appearance Urine Cloudy (Clear); Bacteria Urine Trace /hpf; Bilirubin Urine Negative (Negative); Blood Urine Negative (Negative); Color Urine Amber (Yellow); Glucose Urine UA Negative (Negative); Ketones Urine Negative (Negative); Leukocyte Esterase Ur 1+ LEU/UL (Negative); Mucus Urine Rare /lpf; Nitrate Urine Positive (Negative); Protein Urine 1+ mg/dL (Negative); RBC Urine 0-2 /hpf (0-2); Specific Grav Ur 1.015 (1.001-1.035); Squamous Epithelial Cell Urine Rare /hpf (Few); Urobilinogen Urine Negative mg/dL (<2.0); WBC Urine 31-50 /hpf
--- NOTE | 2021-02-10 05:12 | ED.GENADULT ---
HPI - General Adult General Chief complaint: Abdominal Pain Stated complaint: a lot of gas/burping a lot Time Seen by Provider: 02/10/21 01:54 History of Present Illness HPI narrative: Patient 80-year-old female presents the emergency department chief complaint of abdominal pain and abdominal distention. The patient states it started this evening reports has been burping and belching quite a bit feels as though her abdomen is distended and pushed out. The patient reports she had a bowel movement in the last 24 hours reports that she has had some nausea and vomiting with this as well. The patient denies fever denies chills reports that she has had prior abdominal surgeries including appendectomy in the past. Related Data Home Medications Medication Instructions Recorded Confirmed hydralazine 12/07/20 12/20/20 pregabalin 12/07/20 12/20/20 spironolactone 12/07/20 12/20/20 sucralfate 12/07/20 12/20/20 alprazolam 0.5 mg tablet 0.5 mg PO DAILY 12/15/20 12/20/20 aspirin 81 mg tablet,delayed 81 mg PO DAILY 12/15/20 12/20/20 release clopidogrel 75 mg tablet 75 mg PO DAILY 12/15/20 12/20/20 ferrous sulfate 325 mg (65 mg 325 mg PO DAILY 12/15/20 12/20/20 iron) tablet furosemide 20 mg tablet 20 mg PO QAM 12/15/20 12/20/20 hyoscyamine sulfate 0.125 mg 0.125 mg PO QID 12/15/20 12/20/20 sublingual tablet levothyroxine 175 mcg capsule 175 mcg PO DAILY 12/15/20 12/20/20 lidocaine HCl 2 % mucosal jelly 1 applic TOPICAL TID PRN 12/15/20 12/20/20 nitroglycerin 0.4 mg sublingual 0.4 mg SUBLINGUAL Q5M PRN 12/15/20 12/20/20 tablet oxybutynin chloride 10 mg 10 mg PO DAILY 12/15/20 12/20/20 tablet,extended release 24 hr pantoprazole 40 mg tablet,delayed 40 mg PO QAM 12/15/20 12/20/20 release prednisolone acetate 1 % eye 1 drp RIGHT EYE Q12H 12/15/20 12/20/20 drops,suspension sacubitril 24 mg-valsartan 26 mg 1 tablet PO BID 12/15/20 12/20/20 tablet sertraline 25 mg tablet 25 mg PO DAILY 12/15/20 12/20/20 trazodone 100 mg tablet 100 mg PO QHS PRN 12/15/20 12/20/20 Allergies Allergy/AdvReac Type Severity Reaction Status Date / Time Penicillins Allergy Unknown Rash Verified 12/20/20 13:27 Review of Systems Review of Systems: Narrative: A 10 system review of systems was completed on the patient and is negative except for what is stated in the HPI. Nursing and ancillary documentation was reviewed. [facility] Past Medical History Medical History Acute kidney failure, unspecified Anxiety and depression Chronic anemia Chronic kidney disease, stage 3 Chronic kidney disease, stage 3b Congestive heart failure Systolic and diastolic congestive heart failure Echo 11/27 showed EF 50%. Echo 01/14/2019: EF measured at 39%. September 2018 EF was 25%. Echo 12/02/2019 EF 50-55%. Grade 1 diastolic function. Coronary artery disease With multivessel surgical revascularization with PCI at [place] October 2017. Cardiac catheterization 10/17/2018-mild preserved intra-stent luminal diameter Current use of intermodal dispatcher anticoagulation Depression with anxiety Detached retina Right-sided, x2. Frequent headaches GERD (gastroesophageal reflux disease) With history of esophageal stricture requiring dilatation. History of GI bleed History of rectal polyps Hyperlipidemia Hypertension Hypothyroidism TSH in November 2019 was a bit low, with normal T4. Irritable bowel syndrome Ischemic cardiomyopathy Mitral valve prolapse Myasthenia gravis Questionable history of. Obstructive sleep apnea Ocular herpes zoster History of shingles to the left eye, on chronic antiviral therapy. Paroxysmal atrial fibrillation No longer on long-term anticoagulation due to history of falls. Peripheral neuropathy Rectal polyp Restless leg syndrome Shingles Solitary rectal ulcer syndrome Stage III chronic kidney disease Surgical History Surgical History (Reviewed 02/10/21 @ 05:13 by Scottie Flowers
--- NOTE | 2021-02-10 06:15 | PC.NURSE ---
This patient, Dhara Harry, was admitted to [facility] Surg Room 325-01 @06:17. Patient/family oriented to hospital policies and general routines including ID bracelet, bed and alarms, visiting hours, pain management, procedures, bathroom and other care routines, personal items, smoking policy, room service/diet, and visiting hours. Information on how to activate the Rapid Response Team has been discussed. Patient/Family are encouraged to report perceived risks to care and to ask questions if they do not understand what they are told or what they should do.
--- NOTE | 2021-02-10 08:08 | PM.CNGS ---
Assessment and Plan Assessment and plan (1) Small bowel obstruction: Code(s): K56.609 - Unspecified intestinal obstruction, unspecified as to partial versus complete obstruction Status: Acute Assessment and Plan: hopefully this will resolve with nonsurgical treatment. Continue NG suction, serial exams and daily KUB. IV fluids and analgesics will be needed as well. Will follow along with you. (2) CAD (coronary artery disease): Code(s): I25.10 - Atherosclerotic heart disease of [place] coronary artery without angina pectoris Status: Chronic (3) Congestive heart failure: Qualifiers: Heart failure type: unspecified Heart failure chronicity: chronic Qualified Code(s): I50.9 - Heart failure, unspecified Code(s): I50.9 - Heart failure, unspecified Status: Chronic (4) Antiplatelet or antithrombotic long-term use: Code(s): Z79.02 - long term acute care registered nurse (current) use of antithrombotics/antiplatelets Status: Chronic Assessment and Plan: Patient on Plavix. Please hold this medication. Increases risk of bleeding should patient require surgery. History of Present Illness Consult details Consult date: 02/10/21 Reason for consult: abdominal pain ( Small-bowel obstruction) Requesting physician: Scottie Fabian MD Narrative: the patient is an 80-year-old woman who for the last 3 or 4 days has had off and on episodes of upper abdominal pain. She has not really had any nausea or vomiting. She noted abdominal distention and persistent pain and came to the emergency room early this morning. Evaluation there showed her abdomen to be tender with some mild distention but no peritoneal signs. She is not acidotic. She had a CT scan of the abdomen and pelvis which showed probably a small bowel obstruction. NG tube is been placed and she has been admitted to the hospital. She has had both a hysterectomy and an appendectomy in the past. She has not had previous bowel obstruction were surgery for bowel obstruction. She does have a history of coronary disease and congestive heart failure. She has had percutaneous coronary intervention and stenting. She is on Plavix anti-platelet therapy. She is seen now in consultation for small bowel obstruction. Review of Systems Review of Systems: All systems reviewed & are unremarkable except as noted in HPI and below Constitutional: Constitutional: Denies chills and Denies fever(s) Cardiovascular: Cardiovascular: Denies chest pain, Denies diaphoresis, Denies dyspnea and Denies paroxysmal nocturnal dyspnea Respiratory: Respiratory: Denies chest congestion, Denies cough and Denies dyspnea Integumentary/Breasts: Skin/Breast: Denies lesions and Denies rash [facility] Past Medical History Medical History Acute kidney failure, unspecified Anxiety and depression Chronic anemia Chronic kidney disease, stage 3 Chronic kidney disease, stage 3b Congestive heart failure Systolic and diastolic congestive heart failure Echo 11/27 showed EF 50%. Echo 01/14/2019: EF measured at 39%. September 2018 EF was 25%. Echo 12/02/2019 EF 50-55%. Grade 1 diastolic function. Coronary artery disease With multivessel surgical revascularization with PCI at [place] October 2017. Cardiac catheterization 10/17/2018-mild preserved intra-stent luminal diameter Current use of skilled nursing anticoagulation Depression with anxiety Detached retina Right-sided, x2. Frequent headaches GERD (gastroesophageal reflux disease) With history of esophageal stricture requiring dilatation. History of GI bleed History of rectal polyps Hyperlipidemia Hypertension Hypothyroidism TSH in November 2019 was a bit low, with normal T4. Irritable bowel syndrome Ischemic cardiomyopathy Mitral valve prolapse Myasthenia gravis Questionable history of. Obstructive sleep apnea Ocular herpes zoster History of shingles to the left eye, on chroni
[2021-02-10] MEDS: SODIUM CHLORIDE 0.9% IV 1,000 ML 125 ML IV CONT (08:39)
[2021-02-10] MEDS: PHENOL/SOD PHENO SPRAY CHERRY (*BKC) 1 SPRAY MUCOUS MEM (09:25)
--- NOTE | 2021-02-10 16:11 | PM.IMHP ---
H&P: HPI History of Present Illness Date/Time: 02/10/21 16:11 Chief Complaint: Abdominal distension Narrative: Pleasant 80 year old lady admitted with abdominal distension and bloating. Pt had a ct showing -multiple dilated loops of small bowel with possible transition in the pelvis, ileus versus obstruction. Pt had NG tube passed which had to be repositioned. Pt was re-xrayed and is now in the correct position. Pt felt nauseated and has been having some hard stool Pt had previous admission with contusion of her hip and has several ED visits. Pt had multiple medical problems including CAD, CKD and anxiety and depression. Pt appears to have some mild dementia. Review of Systems Review of Systems: All systems reviewed & are unremarkable except as noted in HPI and below PMFSH Past Medical History Medical History Acute kidney failure, unspecified Anxiety and depression Chronic anemia Chronic kidney disease, stage 3 Chronic kidney disease, stage 3b Congestive heart failure Systolic and diastolic congestive heart failure Echo 11/27 showed EF 50%. Echo 01/14/2019: EF measured at 39%. September 2018 EF was 25%. Echo 12/02/2019 EF 50-55%. Grade 1 diastolic function. Coronary artery disease With multivessel surgical revascularization with PCI at [place] October 2017. Cardiac catheterization 10/17/2018-mild preserved intra-stent luminal diameter Current use of skilled nursing anticoagulation Depression with anxiety Detached retina Right-sided, x2. Frequent headaches GERD (gastroesophageal reflux disease) With history of esophageal stricture requiring dilatation. History of GI bleed History of rectal polyps Hyperlipidemia Hypertension Hypothyroidism TSH in November 2019 was a bit low, with normal T4. Irritable bowel syndrome Ischemic cardiomyopathy Mitral valve prolapse Myasthenia gravis Questionable history of. Obstructive sleep apnea Ocular herpes zoster History of shingles to the left eye, on chronic antiviral therapy. Paroxysmal atrial fibrillation No longer on long-term anticoagulation due to history of falls. Peripheral neuropathy Rectal polyp Restless leg syndrome Shingles Solitary rectal ulcer syndrome Stage III chronic kidney disease Surgical History Surgical History Status post appendectomy Status post bilateral hip replacements Status post bilateral knee replacements Status post breast biopsy Bilateral with benign histology. Status post carpal tunnel release Status post cataract extraction Bilateral. Status post cholecystectomy Status post laminectomy Lumbar spine. Status post LASIK surgery Status post rotator cuff repair Status post tonsillectomy Family History Family History Mother Cerebrovascular accident Diabetes mellitus Hypertension Sibling Cerebrovascular accident Other Acute myocardial infarction Social History Social History Social History: The patient lives with her in [place], [place]. She has been twice, around 31 years with current who was her childhood sweetheart. She has 3 biological children. 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 She is a lifelong nonsmoker and she denies alcohol and illicit substance use. She designates her , Librado, as her surrogate decision maker and wishes to be a full code. Smoking status: Never smoker Alcohol intake: never Substance use: never Substance use type: does not use Gender identity (if verbalized by the patient): Female Spiritual care concerns: No Agree to blood products: Yes Meds Home Medications and Allergies Home Medications Medication Instructions Recorded Confirmed Type hydralazine 10 mg PO DAILY 0
[2021-02-10] MEDS: SODIUM CHLORIDE 0.9% IV 1,000 ML 80 ML IV CONT (17:11)
[2021-02-10] MEDS: hydrALAZINE HCL 20 MG/ML VIAL 10 MG IV PUSH (18:49)
--- NOTE | 2021-02-10 19:47 | PC.NURSE ---
Received call from special weapons unit officer that pt had pulled out her NG tube. Walked into pt room. She was holding her NG tube in her hands, stating she took it out because it was clear . I sternly told her that she was not to pull that out as we had routinely discussed every 15 minutes all day. Pt stated she thought it was okay. I told pt that she would have to have it replaced as that is what the surgeon had ordered. Pt asked which nare the tube had been in, as she starts to put the tube back up to the nose. I firmly told her, No, we would be putting the tube in; you are not to do that . Luisana aguilar RN present for all of this. She will replace NG.
[2021-02-10] MEDS: FAMOTIDINE 20 MG/2 ML VIAL IV PUSH (20:46)
[2021-02-10] MEDS: ENOXAPARIN 30 MG/0.3 ML SYRINGE SUB-Q (20:46)
[2021-02-10] MEDS: LORazepam INJ (*CRX) 2 MG/ML VIAL 0.5 MG IV PUSH (23:25)
[2021-02-11] MEDS: PHENOL/SOD PHENO SPRAY CHERRY (*BKC) 1 SPRAY MUCOUS MEM (00:35)
[2021-02-11] MEDS: SODIUM CHLORIDE 0.9% IV 1,000 ML 80 ML IV CONT (05:12)
[2021-02-11 05:55] VITALS: BP 146/71; PULSE 95; RESP 16; TEMP 36.2; O2SAT 98
[2021-02-11 06:19] LABS: Hematocrit 30.9 % (37.0-47.0); Hemoglobin 9.9 g/dL (12.0-15.0); Mean Corpuscular Hemoglobin 30.7 pg (26-34); Mean Platelet Volume 9.6 fl (7.4-10.4); Platelet Count Result 191 k/mm3 (150-375); Red Blood Count 3.22 M/mm3 (4.2-5.4); White Blood Count 6.1 K/mm3 (4.5-10.0)
[2021-02-11 06:30] LABS: Anion Gap 5 mmol/L (8-16); Blood Urea Nitrogen 12 mg/dL (7-17); Carbon Dioxide 22 mmol/L (22-30); Chloride 111 mmol/L (98-107); Estimated CRCL calculation 38 ml/min; Estimated Glomerular Filt Rate > 60; Glucose 78 mg/dL (65-105); Potassium 3.9 mmol/L (3.4-5.0); Sodium 138 mmol/L (137-145)
--- NOTE | 2021-02-11 07:28 | PM.PNGS ---
Progress Note: A&P Assessment and Plan (1) Small bowel obstruction: Code(s): K56.609 - Unspecified intestinal obstruction, unspecified as to partial versus complete obstruction Status: Acute Assessment and Plan: seems to be resolved. I reviewed her KUB and it appears normal. Abdominal exam is negative and her pain is gone. Will get Gastrografin upper GI small bowel series today. If this shows normal transit, will DC NG and start oral intake. (2) Confusion and disorientation: Code(s): R41.0 - Disorientation, unspecified Status: Acute Assessment and Plan: Patient had a sitter throughout the night. Did not know she was in the hospital this morning. Disorientation, probably sundown syndrome. Hopefully will resolve soon. 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 Subjective Subjective Date/Time Seen: 02/11/21 07:28 Patient reports: feels better, pain is less and no bowel movement Review of Systems Review of Systems: All systems reviewed & are unremarkable except as noted in HPI and below Constitutional: Constitutional: Denies chills, Denies fever(s) and Denies headache(s) Gastrointestinal: Gastrointestinal: Reports as per HPI Neurologic: Reports confusion and Denies headache(s) Exam Const: General: cooperative, comfortable, no acute distress, awake and confusion Nutritional Appearance: thin Orientation/consciousness: No oriented to place and No confusion GI: Inspection: non-distended and scar GI Palp: Yes Soft to palpation, No Tenderness to palpation present (GI), No Guarding due to palpation present (GI) and No Rebound tenderness present Auscultation: normal bowel sounds Neuro: General: No oriented to place, no focal motor deficits and confusion Cranial nerves: Yes CN's II-XII intact bilaterally, Yes Normal facial strength present, Yes facial symmetry and Yes Midline tongue present Cognition (Neuro): abnormal cognition Speech: normal speech Motor exam (neuro): 5/5 motor strength present throughout and Motor abnormalities not present Extrem: General: no calf tenderness and no edema Psych: Speech and movement: Clear speech present Affect: Blunted affect present Attitude: cooperative Insight: Limited insight present (Psych) Judgement: Limited judgement present (Psych) Objective Data Vital Signs Vital Signs: Vital Signs - 24 hr 02/10/21 10:23 02/10/21 14:00 02/10/21 21:51 Temperature 36.4 C L 36.2 C L Pulse Rate 73 81 Respiratory Rate 20 20 Blood Pressure 177/85 H 139/61 Pulse Oximetry 98 100 99 02/11/21 05:55 Temperature 36.2 C L Pulse Rate 95 Respiratory Rate 16 Blood Pressure 146/71 H Pulse Oximetry 98 Intake/Output Intake/Output: Intake & Output 02/08/21 02/09/21 02/10/21 02/11/21 23:59 23:59 23:59 23:59 Intake Total 2170 1050 Output Total 402 300 Balance 1768 750 Meds/Results Medications: Active Medications Generic Name Dose Route Start Last Admin Trade Name Freq PRN Reason Stop Dose Admin Enoxaparin Sodium 40 mg 02/11/21 09:00 Enoxaparin 40 Mg/0.4 Ml Syringe SUB-Q DAILY JESSICA Famotidine 20 mg 02/10/21 21:00 02/10/21 20:46 Famotidine 20 Mg/2 Ml Vial IV PUSH 20 mg Q12HR JESSICA Administration Hydralazine HCl 10 mg 02/10/21 18:07 02/10/21 18:49 Hydralazine Hcl 20 Mg/Ml Vial IV PUSH 10 mg Q8H PRN Administration Blood Pressure - High Ceftriaxone Sodium/Dextrose 1 gm in 50 mls @ 100 mls/hr 02/11/21 06:00 02/11/21 05:41 Rocephin 1 Gm/D5w 50 Ml IVPB Infused Q24H JESSICA Infusion Sodium Chloride 1,000 mls @ 60 mls/hr 02/10/21 05:10 02/11/21 05:12 Normal Saline Iv IV CONT 80 mls/hr .[id number] JESSICA Administration Acetaminophen 1,000 mg in 100 mls @ 400 mls/hr 02/10/21
--- NOTE | 2021-02-11 09:10 | PC.NURSE ---
called to radiology pt is having nausea during small bowel series, will admin zofran per PRN orders
--- NOTE | 2021-02-11 10:24 | PC.NURSE ---
2 attempts to obtain IV access unsuccessful, call to IV therapy RN
[2021-02-11] MEDS: ACETAMINOPHEN 500 MG TABLET 1000 MG PO (11:57)
[2021-02-11] MEDS: ENOXAPARIN 40 MG/0.4 ML SYRINGE SUB-Q (11:58)
--- NOTE | 2021-02-11 12:18 | PM.IMPN ---
Progress Note: A&P Assessment and Plan (1) Small bowel obstruction: Code(s): K56.609 - Unspecified intestinal obstruction, unspecified as to partial versus complete obstruction Status: Acute Assessment and Plan: pt seen by surgery,pt can have NG removed, continue conservative management for SBO. (2) Abdominal pain: Qualifiers: Abdominal location: generalized Qualified Code(s): R10.84 - Generalized abdominal pain Code(s): R10.9 - Unspecified abdominal pain Status: Acute Assessment and Plan: pt feels better pt had bowel movement. Ando soft, KUB NL, pt going for gastro graffin study (3) Acute kidney failure, unspecified: Code(s): N17.9 - Acute kidney failure, unspecified Status: Acute Assessment and Plan: creat is 0.8 (4) Chronic kidney disease, stage 3b: Code(s): N18.32 - Chronic kidney disease, stage 3b Status: Acute Assessment and Plan: HIstory of CKD continue to monitor creat pt to start a diet (5) Hypothyroidism: Code(s): E03.9 - Hypothyroidism, unspecified Status: Chronic Assessment and Plan: Pt is on levothyroxine orally (6) Congestive heart failure: Qualifiers: Heart failure type: unspecified Heart failure chronicity: chronic Qualified Code(s): I50.9 - Heart failure, unspecified Code(s): I50.9 - Heart failure, unspecified Status: Chronic Assessment and Plan: restart home medications (7) Anxiety and depression: Code(s): F41.9 - Anxiety disorder, unspecified; F32.9 - Major depressive disorder, single episode, unspecified Status: Acute Assessment and Plan: restart home medications (8) UTI (urinary tract infection): Code(s): N39.0 - Urinary tract infection, site not specified Status: Acute Assessment and Plan: PTs UA is positive awaiting UC Pt is on IV rocephin currently (9) Hypertension: Qualifiers: Hypertension type: unspecified Qualified Code(s): I10 - Essential (primary) hypertension Code(s): I10 - Essential (primary) hypertension Status: Chronic Assessment and Plan: restart home medications Subjective Date/time seen: 02/11/21 12:18 Interval history: 80 year old female admitted with SBO, pt has had a bowel movement, today, abdomen is soft. KUB Nl, Pt to have NG removed can start diet and oral medications, hopeful dc tomorrow. Review of Systems Review of Systems: All systems reviewed & are unremarkable except as noted in HPI and below Exam Const: General: other (Thin appearing frail with NG tube in situ ) Eyes: General: appearance normal, both eyes and all related structures Pupils: Equal, round and reactive pupils present Neck: Neck: supple Chest: Chest palpation & inspection: normal inspection of the chest Resp: Effort & Inspection: normal respiratory effort Auscultation: clear to auscultation bilaterally Cardio: Rhythm: regular rhythm Heart sounds: S1 normal heart sound present and S2 normal heart sound present GI: Inspection: normal to inspection Auscultation: normal bowel sounds and other (Soft abdomen NT ) Skin: General skin exam: normal color and dry skin Neuro: Cranial nerves: Yes CN's II-XII intact bilaterally and Yes Equal, round and reactive pupils present Cognition (Neuro): normal cognition Speech: normal speech Motor exam (neuro): 5/5 motor strength present throughout Extrem: General: normal to inspection Psych: Appearance: grossly normal Mental Status: other (mild dementia ) Objective Data Vital Signs Vital Signs: Vital Signs - 24 hr 02/10/21 14:00 02/10/21 21:51 02/11/21 05:55 Temperature 36.4 C L 36.2 C L 36.2 C L Pulse Rate 73 81 95 Respiratory Rate 20 20 16 Blood Pressure 177/85 H 139/61 146/71 H Pulse Oximetry 100 99 98 Intake/Output Intake/Output: Intake & Output 02/08/21 02/09/21 02/10/21 02/11/21 23:59 23:59 23:59 23:59
[2021-02-11] MEDS: HYOSCYAMINE SULFATE 0.125 MG TABLET PO ×3 (13:41→20:07)
[2021-02-11 14:00] VITALS: BP 131/82; PULSE 73; RESP 16; TEMP 36.4; O2SAT 100
[2021-02-11 14:06] VITALS: BMI 17.6
--- NOTE | 2021-02-11 14:52 | PCNSR ---
On 02/11/21, the student, Janel Giles, provided care and completed [facility] documentation on this patient. I have reviewed the student's documentation and agree with the findings.
[2021-02-11] MEDS: SACUBITRIL/VALSARTAN 24-26 MG TABLET 1 TAB PO (20:06)
[2021-02-11] MEDS: FAMOTIDINE 20 MG TABLET PO (20:06)
[2021-02-11] MEDS: traZODone HCL 50 MG TABLET 100 MG PO (20:06)
[2021-02-11] MEDS: LORazepam INJ (*CRX) 2 MG/ML VIAL 0.5 MG IV PUSH (20:09)
[2021-02-11 22:00] VITALS: BP 139/72; PULSE 86; RESP 20; TEMP 36.2; O2SAT 99
[2021-02-12] MEDS: LEVOTHYROXINE SODIUM 75 MCG TABLET PO (05:54)
[2021-02-12] MEDS: LEVOTHYROXINE SODIUM 100 MCG TABLET PO (05:54)
[2021-02-12 06:00] VITALS: BP 151/82; PULSE 82; RESP 20; TEMP 36.2; O2SAT 99
[2021-02-12] MEDS: ENOXAPARIN 40 MG/0.4 ML SYRINGE SUB-Q (08:36)
[2021-02-12] MEDS: SPIRONOLACTONE 25 MG TABLET PO (08:36)
[2021-02-12] MEDS: PANTOPRAZOLE 40 MG TABLET PO (08:36)
[2021-02-12] MEDS: SUCRALFATE 1 GM TABLET PO (08:36)
[2021-02-12 08:37] VITALS: PULSE 71
[2021-02-12] MEDS: FAMOTIDINE 20 MG TABLET PO (08:37)
[2021-02-12] MEDS: METOPROLOL SUCCINATE EXT REL 50 MG TABCR PO (08:37)
[2021-02-12] MEDS: HYOSCYAMINE SULFATE 0.125 MG TABLET PO ×2 (08:37→11:59)
[2021-02-12] MEDS: SACUBITRIL/VALSARTAN 24-26 MG TABLET 1 TAB PO (08:37)
[2021-02-12] MEDS: FUROSEMIDE 20 MG TABLET PO (08:37)
[2021-02-12] MEDS: CLOPIDOGREL BISULFATE 75 MG TABLET PO (08:39)
[2021-02-12] MEDS: FERROUS SULFATE 324 MG TABLET PO (08:39)
[2021-02-12] MEDS: hydrALAZINE 10 MG TABLET PO (08:39)
[2021-02-12] MEDS: SERTRALINE HCL 25 MG TABLET PO (08:40)
[2021-02-12] MEDS: PREGABALIN (*CRX) 50 MG CAPSULE PO (08:43)
[2021-02-12] MEDS: ALPRAZolam (*CRX) 0.5 MG TABLET PO (08:43)
[2021-02-12] MEDS: ACETAMINOPHEN 500 MG TABLET 1000 MG PO (09:04)
--- NOTE | 2021-02-12 09:56 | PM.PNGS ---
Progress Note: A&P Assessment and Plan (1) Small bowel obstruction: Code(s): K56.609 - Unspecified intestinal obstruction, unspecified as to partial versus complete obstruction Status: Resolved Assessment and Plan: Patient doing well. Tolerating solid food. No further abdominal pain. Upper GI small bowel series was negative. Advanced to regular diet. Can be discharged from surgical standpoint. No follow-up with General surgery needed. (2) Antiplatelet or antithrombotic long-term use: Code(s): Z79.02 - supervisor intermediates (current) use of antithrombotics/antiplatelets Status: Chronic Assessment and Plan: Continue Plavix as before. Subjective Subjective Date/Time Seen: 02/12/21 09:56 Patient reports: no new complaints, feels better, pain is less (No abdominal pain.), tolerating a regular diet and bowel movement Review of Systems Review of Systems: All systems reviewed & are unremarkable except as noted in HPI and below Constitutional: Constitutional: Denies chills, Reports difficulty sleeping, Denies fever(s) and Denies headache(s) Gastrointestinal: Gastrointestinal: Reports as per HPI, Denies abdominal pain, Denies GI cramping, Denies heartburn and Denies nausea Exam Const: General: comfortable, no acute distress, alert and awake Nutritional Appearance: thin Orientation/consciousness: confusion GI: Inspection: normal to inspection and non-distended GI Palp: Yes Soft to palpation, No Tenderness to palpation present (GI), No Guarding due to palpation present (GI) and No Rebound tenderness present Auscultation: normal bowel sounds Extrem: General: no calf tenderness and no edema Psych: Appearance: grossly normal Speech and movement: Normal speech and movement present Affect: normal affect Objective Data Vital Signs Vital Signs: Vital Signs - 24 hr 02/11/21 14:00 02/11/21 22:00 02/12/21 06:00 Temperature 36.4 C L 36.2 C L 36.2 C L Pulse Rate 73 86 82 Respiratory Rate 16 20 20 Blood Pressure 131/82 139/72 151/82 H Pulse Oximetry 100 99 99 02/12/21 08:37 Temperature Pulse Rate 71 Respiratory Rate Blood Pressure Pulse Oximetry Intake/Output Intake/Output: Intake & Output 02/09/21 02/10/21 02/11/21 02/12/21 23:59 23:59 23:59 23:59 Intake Total 2170 1700 350 Output Total 402 400 Balance 1768 1300 350 Meds/Results Medications: Active Medications Generic Name Dose Route Start Last Admin Trade Name Alfreditoq PRN Reason Stop Dose Admin Acetaminophen 1,000 mg 02/11/21 11:38 02/12/21 09:04 Acetaminophen 500 Mg Tablet PO 1,000 mg Q6H PRN Administration Mild Pain (1-3) or Fever Alprazolam 0.5 mg 02/12/21 09:00 02/12/21 08:43 Alprazolam (*Crx) 0.5 Mg Tablet PO 0.5 mg DAILY JESSICA Administration Clopidogrel Bisulfate 75 mg 02/12/21 09:00 02/12/21 08:39 Clopidogrel Bisulfate 75 Mg Tablet PO 75 mg DAILY JESSICA Administration Enoxaparin Sodium 40 mg 02/11/21 09:00 02/12/21 08:36 Enoxaparin 40 Mg/0.4 Ml Syringe SUB-Q 40 mg DAILY JESSICA Administration Famotidine 20 mg 02/11/21 21:00 02/12/21 08:37 Famotidine 20 Mg Tablet PO 20 mg Q12HR JESSICA Administration Ferrous Sulfate 324 mg 02/12/21 09:00 02/12/21 08:39 Ferrous Sulfate 324 Mg Tablet PO 324 mg DAILY JESSICA Administration Furosemide 20 mg 02/12/21 09:00 02/12/21 08:37 Furosemide 20 Mg Tablet PO 20 mg QAM JESSICA Administration Hydralazine HCl 10 mg 02/10/21 18:07 02/10/21 18:49 Hydralazine Hcl 20 Mg/Ml Vial IV PUSH 10 mg Q8H PRN Administration Blood Pressure - High Hydralazine HCl 10 mg 02/12/21 09:00 02/12/21 08:39 Hydralazine 10 Mg Tablet PO 10 mg DAILY JESSICA Administration Hyoscyamine 0.125 mg 02/11/21 13:00 02/12/21 08:37 Hyoscyamine Sulfate 0.125 Mg Tablet PO 0.125 mg QID JESSICA Administration Ceftriaxone Sodium/Dextrose 1 gm in 50 mls @ 100 mls/hr 02/11/21 06:00 02/12/21 05:57 Rocephin 1 Gm/D5w 50 Ml
--- NOTE | 2021-02-12 10:16 | PCOTNOTE ---
Attempted OT evaluation, but unable to complete at this time as patient eating. Will attempt again later.
--- NOTE | 2021-02-12 12:28 | PM.DS ---
DS: Admitting Diagnosis Admitting Diagnosis Admitting Diagnosis: Abdominal distension DS: Discharge Diagnosis Discharge Diagnosis (1) Small bowel obstruction: Code(s): K56.609 - Unspecified intestinal obstruction, unspecified as to partial versus complete obstruction Status: Resolved Assessment and Plan: Pt had NG tube passed for relief of SBO, pt did well had bowel movement and abdominal distension was relieved. Pt had conservative management for SBO. (2) Abdominal pain: Qualifiers: Abdominal location: generalized Qualified Code(s): R10.84 - Generalized abdominal pain Code(s): R10.9 - Unspecified abdominal pain Status: Acute Assessment and Plan: Pt feels better pt had bowel movement. Abdo soft, KUB NL, small bowel series was NL. (3) Acute kidney failure, unspecified: Code(s): N17.9 - Acute kidney failure, unspecified Status: Acute Assessment and Plan: Creat is 0.8 which is nl. (4) Chronic kidney disease, stage 3b: Code(s): N18.32 - Chronic kidney disease, stage 3b Status: Acute Assessment and Plan: HIstory of CKD, creat is 0.8 on discharge (5) Hypothyroidism: Code(s): E03.9 - Hypothyroidism, unspecified Status: Chronic Assessment and Plan: Pt is on levothyroxine orally (6) Congestive heart failure: Qualifiers: Heart failure type: unspecified Heart failure chronicity: chronic Qualified Code(s): I50.9 - Heart failure, unspecified Code(s): I50.9 - Heart failure, unspecified Status: Chronic Assessment and Plan: Restart home medications (7) Anxiety and depression: Code(s): F41.9 - Anxiety disorder, unspecified; F32.9 - Major depressive disorder, single episode, unspecified Status: Acute Assessment and Plan: Restart home medications (8) UTI (urinary tract infection): Code(s): N39.0 - Urinary tract infection, site not specified Status: Acute Assessment and Plan: PTs UA is positive UC positive for K. oxytca pt to treated with ciprofloxacin bid for 10 days then stop. pt to have rpt UA and U in 2 weeks time with her PCP. (9) Hypertension: Qualifiers: Hypertension type: unspecified Qualified Code(s): I10 - Essential (primary) hypertension Code(s): I10 - Essential (primary) hypertension Status: Chronic Assessment and Plan: Restart home medications DS: Summary Hospital Course Hospital Course: 80 year old female admitted with SBO, pt has had a bowel movement, yesterday, abdomen is soft. KUB Nl, small bowel series was normal. Pt restarted diet and oral medications, can be discharge today. Time Spent with Patient Time attestation: Total time spent providing and/or coordinating discharge services:40 minutes on day of dischrage Exam Const: General: other (Thin and frail ) Eyes: General: appearance normal, both eyes and all related structures Pupils: Equal, round and reactive pupils present Neck: Neck: supple Chest: Chest palpation & inspection: normal inspection of the chest Resp: Effort & Inspection: normal respiratory effort Auscultation: clear to auscultation bilaterally Cardio: Jugular venous distension: no JVD Rhythm: regular rhythm Heart sounds: S1 normal heart sound present and S2 normal heart sound present GI: Inspection: normal to inspection Auscultation: normal bowel sounds and other (Soft abdomen NT ) Skin: General skin exam: normal color and dry skin Neuro: Cranial nerves: Yes CN's II-XII intact bilaterally and Yes Equal, round and reactive pupils present Cognition (Neuro): normal cognition Speech: normal speech Motor exam (neuro): 5/5 motor strength present throughout Extrem: General: normal to inspection Psych: Appearance: grossly normal Mental Status: other (mild dementia ) Discharge Plan Discharge Attending physician on discharge: Melissa Mcmillan
== END 2021-02-12 13:17 | disposition home or self-care (01) | DRG 389 ==
LOC: ANHED 05:15 → ANH3MEDSUR 05:50
PROVIDERS: Surgery; Admitting Provider Internal Medicine; Emergency Provider Emergency Medicine; PCP Family Medicine; Visit Provider Family Medicine
DX: K56.609 Unspecified intestinal obstruction, unspecified as to partial versus complete obstruction (principal); N39.0 Urinary tract infection, site not specified; I13.0 Hypertensive heart and chronic kidney disease with heart failure and stage 1 through stage 4 chronic kidney disease, or unspecified chronic kidney disease; N17.9 Acute kidney failure, unspecified; I50.42 Chronic combined systolic (congestive) and diastolic (congestive) heart failure; N18.32 Chronic kidney disease, stage 3b; R10.84 Generalized abdominal pain; R41.0 Disorientation, unspecified; I25.10 Atherosclerotic heart disease of native coronary artery without angina pectoris; I25.5 Ischemic cardiomyopathy; F41.8 Other specified anxiety disorders; K21.9 Gastro-esophageal reflux disease without esophagitis; E78.5 Hyperlipidemia, unspecified; E03.9 Hypothyroidism, unspecified; G25.81 Restless legs syndrome; G47.33 Obstructive sleep apnea (adult) (pediatric); Z79.02 Long term (current) use of antithrombotics/antiplatelets; Z79.82 Long term (current) use of aspirin; Z79.899 Other long term (current) drug therapy; Z88.0 Allergy status to penicillin; Z91.81 History of falling; Z98.42 Cataract extraction status, left eye; Z98.41 Cataract extraction status, right eye; Z96.643 Presence of artificial hip joint, bilateral; Z96.653 Presence of artificial knee joint, bilateral
CPT/HCPCS: 36415; 74018; 74177; 74240; 74248; 80048; 80053; 81001; 83605; 84484; 85025; 85027; 87077; 87086; 87088; 87186; 93005; 96361; 96365; 96375; 97161; 97165; 99285; A9270; C9113; G0378; J0131; J0360; J0696; J1650; J2060; J2405; J7030; Q9967

== ENCOUNTER 2021-02-22 15:55 | Emergency (ER) | payer MEDICARE, SELFPAY ==
[2021-02-22 16:25] VITALS: BP 132/94; PULSE 86; RESP 14; TEMP 36.1; O2SAT 99
--- NOTE | 2021-02-22 16:32 | ECG_ITS ---
Measurements Intervals [place] Rate: 76 P: 72 CT: 145 QRS: -34 QRSD: 100 T: 23 QT: 415 QTc: 467 Interpretive Statements SINUS RHYTHM ATRIAL PREMATURE COMPLEXES LEFT AXIS DEVIATION ANTEROSEPTAL INFARCT, AGE INDETERMINATE ABNORMAL ECG Electronically Signed On 02-22-2021 20:04:52 CDT by Marlon Joe D.O.
[2021-02-22 16:45] LABS: Basophils Percent Auto 0.5 % (0.2-1.2); Eosinophils Absolute Auto 0.1 K/mm3 (0-0.3); Hematocrit 30.7 % (37.0-47.0); Hemoglobin 9.6 g/dL (12.0-15.0); Immature Granulocyte Absolute 0.05 K/mm3 (0.00-0.031); Immature Granulocyte Percent A 0.8 % (0-0.5); Lymphocytes Absolute Auto 1.36 K/mm3 (0.9-3.2); Lymphocytes Percent Auto 20.7 % (18.3-44.2); Mean Corpuscular HGB Conc 31.3 g/dl (32-36); Mean Corpuscular Hemoglobin 30.2 pg (26-34); Mean Corpuscular Volume 96.5 fl (80-100); Mean Platelet Volume 9.7 fl (7.4-10.4); Monocytes Absolute Auto 0.7 K/mm3 (0.1-0.6); Monocytes Percent Auto 10.2 % (2.6-8.5); Neutrophils Absolute Auto 4.3 K/mm3 (1.3-6.7); Neutrophils Percent Auto 65.8 % (45.5-73.1); Platelet Count Result 257 k/mm3 (150-375); Red Blood Count 3.18 M/mm3 (4.2-5.4); Red Cell Distribution Width 12.5 % (11.5-14.5); White Blood Count 6.6 K/mm3 (4.5-10.0)
[2021-02-22 16:56] LABS: Alanine Aminotransferase 12 U/L (4-35); Albumin Level 3.6 g/dL (3.5-5.1); Alkaline Phosphatase 97 U/L (38-126); Anion Gap 5 mmol/L (8-16); Aspartate Amino Transferase 28 U/L (14-36); Bilirubin,Total 0.2 mg/dL (0.2-1.3); Blood Urea Nitrogen 16 mg/dL (7-17); Calcium 8.4 mg/dL (8.4-10.2); Carbon Dioxide 26 mmol/L (22-30); Chloride 106 mmol/L (98-107); Estimated CRCL calculation 26 ml/min; Estimated Glomerular Filt Rate 48; Glucose 88 mg/dL (65-105); Lipase 98 U/L (23-300); Potassium 3.9 mmol/L (3.4-5.0); Sodium 137 mmol/L (137-145)
[2021-02-22] MEDS: PANTOPRAZOLE SODIUM IV 40 MG VIAL IV PUSH (17:24)
[2021-02-22] MEDS: ONDANSETRON INJ 4 MG/2 ML VIAL IV PUSH (17:24)
[2021-02-22] MEDS: LACTATED RINGERS 1,000 ML 999 ML IV CONT (17:24)
[2021-02-22] MEDS: HYOSCYAMINE SULFATE 0.125 MG TABLET PO (17:31)
[2021-02-22] MEDS: LORazepam INJ (*CRX) 2 MG/ML VIAL 1 MG IV PUSH (17:31)
[2021-02-22 18:23] LABS: Add Urine Microscopic? YES; Appearance Urine Cloudy (Clear); Bacteria Urine Trace /hpf; Bilirubin Urine Negative (Negative); Blood Urine Negative (Negative); Color Urine Yellow (Yellow); Glucose Urine UA Negative (Negative); Ketones Urine Negative (Negative); Leukocyte Esterase Ur Negative LEU/UL (Negative); Nitrate Urine Negative (Negative); Protein Urine Negative (Negative); RBC Urine 0-2 /hpf (0-2); Specific Grav Ur 1.005 (1.001-1.035); Urobilinogen Urine Negative mg/dL (<2.0); WBC Urine 0-3 /hpf
--- NOTE | 2021-02-22 19:09 | ED.GENADULT ---
HPI - General Adult General Chief complaint: Abdominal Pain Stated complaint: abd pain/dizzy Time Seen by Provider: 02/22/21 16:43 Source: patient, family and RN notes reviewed Mode of arrival: ambulatory Limitations: no limitations History of Present Illness HPI narrative: Patient is an 80-year-old female who presents with GI discomfort that began after eating today had been some pineapple patient with longstanding history of GI upset has not had anything for symptoms on arrival does not appear distressed or uncomfortable denies any URI symptoms nausea vomiting or diarrhea or any rectal bleeding or melena or urinary symptoms Related Data Home Medications Medication Instructions Recorded Confirmed hydralazine 10 mg PO DAILY 12/07/20 02/15/21 pregabalin 50 mg PO DAILY 12/07/20 02/15/21 spironolactone 25 mg PO DAILY 12/07/20 02/15/21 sucralfate 1 g PO DAILY 12/07/20 02/15/21 aspirin 81 mg tablet,delayed 81 mg PO DAILY 12/15/20 02/15/21 release clopidogrel 75 mg tablet 75 mg PO DAILY 12/15/20 02/15/21 ferrous sulfate 325 mg (65 mg 325 mg PO DAILY 12/15/20 02/15/21 iron) tablet furosemide 20 mg tablet 20 mg PO QAM 12/15/20 02/15/21 hyoscyamine sulfate 0.125 mg 0.125 mg PO QID 12/15/20 02/15/21 sublingual tablet levothyroxine 175 mcg capsule 175 mcg PO DAILY 12/15/20 02/15/21 lidocaine HCl 2 % mucosal jelly 1 applic TOPICAL TID PRN 12/15/20 02/15/21 nitroglycerin 0.4 mg sublingual 0.4 mg SUBLINGUAL Q5M PRN 12/15/20 02/15/21 tablet oxybutynin chloride 10 mg 10 mg PO DAILY 12/15/20 02/15/21 tablet,extended release 24 hr pantoprazole 40 mg tablet,delayed 40 mg PO QAM 12/15/20 02/15/21 release prednisolone acetate 1 % eye 1 drp RIGHT EYE Q12H 12/15/20 02/15/21 drops,suspension sertraline 25 mg tablet 25 mg PO DAILY 12/15/20 02/15/21 trazodone 100 mg tablet 100 mg PO QHS PRN 12/15/20 02/15/21 Entresto 1 tablet PO BID 02/10/21 02/15/21 Allergies Allergy/AdvReac Type Severity Reaction Status Date / Time Penicillins Allergy Unknown Rash Verified 02/22/21 16:44 Review of Systems Review of Systems: All systems reviewed & are unremarkable except as noted in HPI and below PMFSH Past Medical History Medical History Acute kidney failure, unspecified Anxiety and depression Chronic anemia Chronic kidney disease, stage 3 Chronic kidney disease, stage 3b Congestive heart failure Systolic and diastolic congestive heart failure Echo 11/27 showed EF 50%. Echo 01/14/2019: EF measured at 39%. September 2018 EF was 25%. Echo 12/02/2019 EF 50-55%. Grade 1 diastolic function. Coronary artery disease With multivessel surgical revascularization with PCI at [facility] October 2017. 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 Frequent headaches GERD (gastroesophageal reflux disease) With history of esophageal stricture requiring dilatation. History of GI bleed History of rectal polyps Hyperlipidemia Hypertension Hypothyroidism TSH in November 2019 was a bit low, with normal T4. Irritable bowel syndrome Ischemic cardiomyopathy Mitral valve prolapse Myasthenia gravis Questionable history of. Obstructive sleep apnea Ocular herpes zoster History of shingles to the left eye, on chronic antiviral therapy. Paroxysmal atrial fibrillation No longer on long-term anticoagulation due to history of falls. Peripheral neuropathy Rectal polyp Restless leg syndrome Shingles Solitary rectal ulcer syndrome Stage III chronic kidney disease Surgical History Surgical History Status post appendectomy Status post bilateral hip replacements Status post bilateral knee replacements Status post breast biopsy Bilateral with benign histology. Status post carpal tunnel release Status post cataract extra
[2021-02-22 19:24] VITALS: BP 150/95; PULSE 72; RESP 18; O2SAT 98
== END 2021-02-22 19:27 | disposition home or self-care (01) ==
PROVIDERS: Emergency Medicine; Emergency Provider Emergency Medicine; PCP Family Medicine
DX: R10.9 Unspecified abdominal pain (principal); F41.9 Anxiety disorder, unspecified; F32.9 Major depressive disorder, single episode, unspecified; I13.0 Hypertensive heart and chronic kidney disease with heart failure and stage 1 through stage 4 chronic kidney disease, or unspecified chronic kidney disease; N18.30 Chronic kidney disease, stage 3 unspecified; I50.9 Heart failure, unspecified; K21.9 Gastro-esophageal reflux disease without esophagitis; E03.9 Hypothyroidism, unspecified; I48.91 Unspecified atrial fibrillation
CPT/HCPCS: 36415; 51701; 80053; 81001; 83690; 85025; 93005; 96361; 96374; 96375; 99284; A9270; C9113; J2060; J2405; J7120

== ENCOUNTER 2021-02-28 19:11 | Emergency (ER) | payer MEDICARE, SELFPAY ==
--- NOTE | ~2021-02-28 | XR_ITS ---
EXAMINATION: XR chest 2V 02/28/2021 19:40 INDICATION: Localized chest pain PROCEDURE: PA and lateral views of the chest COMPARISON: Comparison to multiple prior studies sequentially, with oldest reviewed study dated 06/2021. FINDINGS: The lungs are clear. The lungs are hyperinflated which is consistent with, but not diagnost ic of chronic obstructive pulmonary disease there is a coronary artery stent.. The cardiomediastinal silhouette is within normal limits. There are no pleural effusions. There is no pneumothorax suspec jer. There are cholecystectomy clips. There is scoliosis. IMPRESSION: 1: NO ACUTE CARDIOPULMONARY DISEASE. Reviewed, dictated and finalized at location A.
[2021-02-28 19:24] VITALS: BP 139/93; PULSE 65; RESP 14; TEMP 36.6; O2SAT 99
--- NOTE | 2021-02-28 19:27 | ECG_ITS ---
Measurements Intervals [place] Rate: 84 P: 70 [place]: 147 QRS: -33 QRSD: 93 T: 33 QT: 379 QTc: 450 Interpretive Statements SINUS RHYTHM LEFT AXIS DEVIATION ANTEROSEPTAL INFARCT, AGE INDETERMINATE BASELINE ARTIFACT- I, II, III, AVR, AVL, AVF, V5-V6 ABNORMAL ECG Electronically Signed On 02-28-2021 20:29:27 CDT by Marlon Joe D.O.
[2021-02-28 19:33] LABS: Basophils Percent Auto 0.3 % (0.2-1.2); Eosinophils Absolute Auto 0.1 K/mm3 (0-0.3); Eosinophils Percent Auto 1.3 % (0-4.4); Hematocrit 32.2 % (37.0-47.0); Hemoglobin 10.3 g/dL (12.0-15.0); Immature Granulocyte Absolute 0.02 K/mm3 (0.00-0.031); Immature Granulocyte Percent A 0.3 % (0-0.5); Lymphocytes Absolute Auto 1.18 K/mm3 (0.9-3.2); Lymphocytes Percent Auto 19.7 % (18.3-44.2); Mean Platelet Volume 9.8 fl (7.4-10.4); Monocytes Absolute Auto 0.6 K/mm3 (0.1-0.6); Monocytes Percent Auto 9.4 % (2.6-8.5); Neutrophils Absolute Auto 4.1 K/mm3 (1.3-6.7); Platelet Count Result 250 k/mm3 (150-375); Red Blood Count 3.32 M/mm3 (4.2-5.4); Red Cell Distribution Width 12.9 % (11.5-14.5)
[2021-02-28 19:45] LABS: Anion Gap 5 mmol/L (8-16); Blood Urea Nitrogen 18 mg/dL (7-17); Calcium 8.8 mg/dL (8.4-10.2); Carbon Dioxide 25 mmol/L (22-30); Chloride 105 mmol/L (98-107); Estimated CRCL calculation 18 ml/min; Estimated Glomerular Filt Rate 33; Glucose 86 mg/dL (65-105); INR 0.9; Potassium 4.4 mmol/L (3.4-5.0); Prothrombin Time 12.8 Seconds (11.1-14.7); Sodium 135 mmol/L (137-145)
[2021-02-28 19:46] LABS: Partial Thromboplastin Time 27.5 SECONDS (22.3-36.8)
[2021-02-28 19:57] LABS: Troponin I < 0.012 ng/mL (0.000-0.034)
[2021-02-28 20:33] VITALS: BP 155/98; PULSE 78; RESP 20; O2SAT 99
[2021-02-28 20:41] VITALS: O2SAT 96
--- NOTE | 2021-02-28 20:42 | PC.NURSE ---
Pt presents to ED with complaints of upper, midsternal chest pain that radiates down to her lower abdomen. Pt states pain onset mid morning and is currently rated 8/10. Pt denies tx pain and denies use of blood thinners, nausea, emesis and sob with chest pain. Pt describes discomfort as a burning pressure. No complaints of pain and discomfort with urination. Denies hx of AA. Pt noted to be alert and oriented x4. was present at bedside and left to go home. Pt in no obvious distress with call button and personal items within reach.
--- NOTE | 2021-02-28 21:17 | ED.CHESTPAIN ---
HPI - Chest Pain General Chief Complaint: Chest Pain Stated Complaint: chest pain Time Seen by Provider: 02/28/21 21:06 History of Present Illness HPI narrative: Burning pain from her throat to her suprapubic region for the past 2 hours. She has been seen here for the same numerous times. This is no different than usual. No SOB, diaphoresis. Related Data Home Medications Medication Instructions Recorded Confirmed hydralazine 10 mg PO DAILY 12/07/20 03/02/21 pregabalin 50 mg PO DAILY 12/07/20 03/02/21 spironolactone 25 mg PO DAILY 12/07/20 03/02/21 aspirin 81 mg tablet,delayed 81 mg PO DAILY 12/15/20 03/02/21 release clopidogrel 75 mg tablet 75 mg PO DAILY 12/15/20 03/02/21 ferrous sulfate 325 mg (65 mg 325 mg PO DAILY 12/15/20 03/02/21 iron) tablet furosemide 20 mg tablet 20 mg PO QAM 12/15/20 03/02/21 levothyroxine 175 mcg capsule 175 mcg PO DAILY 12/15/20 03/02/21 lidocaine HCl 2 % mucosal jelly 1 applic TOPICAL TID PRN 12/15/20 03/02/21 nitroglycerin 0.4 mg sublingual 0.4 mg SUBLINGUAL Q5M PRN 12/15/20 03/02/21 tablet oxybutynin chloride 10 mg 10 mg PO DAILY 12/15/20 03/02/21 tablet,extended release 24 hr pantoprazole 40 mg tablet,delayed 40 mg PO QAM 12/15/20 03/02/21 release prednisolone acetate 1 % eye 1 drp RIGHT EYE Q12H 12/15/20 03/02/21 drops,suspension sertraline 25 mg tablet 25 mg PO DAILY 12/15/20 03/02/21 trazodone 100 mg tablet 100 mg PO QHS PRN 12/15/20 03/02/21 Entresto 1 tablet PO BID 02/10/21 03/02/21 Allergies Allergy/AdvReac Type Severity Reaction Status Date / Time Penicillins Allergy Unknown Rash Verified 03/02/21 10:50 Review of Systems Review of Systems: All systems reviewed & are unremarkable except as noted in HPI and below Constitutional: Constitutional: Denies fever(s) Eyes: Eyes: Reports no additional eye complaints ENT: Denies dizziness and Reports sore throat Cardiovascular: Cardiovascular: Reports chest pain Respiratory: Respiratory: Denies dyspnea Gastrointestinal: Gastrointestinal: Reports abdominal pain Genitourinary: Genitourinary: Denies hematuria and Denies dysuria Musculoskeletal: Musculoskeletal: Denies back pain Neurologic: Denies dizziness and Denies weakness [facility] Past Medical History Medical History Acute kidney failure, unspecified Anxiety and depression Chronic anemia Chronic kidney disease, stage 3 Chronic kidney disease, stage 3b Congestive heart failure Systolic and diastolic congestive heart failure Echo 11/27 showed EF 50%. Echo 01/14/2019: EF measured at 39%. September 2018 EF was 25%. Echo 12/02/2019 EF 50-55%. Grade 1 diastolic function. Coronary artery disease With multivessel surgical revascularization with PCI at [place] October 2017. 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 Frequent headaches GERD (gastroesophageal reflux disease) With history of esophageal stricture requiring dilatation. History of GI bleed History of rectal polyps Hyperlipidemia Hypertension Hypothyroidism TSH in November 2019 was a bit low, with normal T4. Irritable bowel syndrome Ischemic cardiomyopathy Mitral valve prolapse Myasthenia gravis Questionable history of. Obstructive sleep apnea Ocular herpes zoster History of shingles to the left eye, on chronic antiviral therapy. Paroxysmal atrial fibrillation No longer on long-term anticoagulation due to history of falls. Peripheral neuropathy Rectal polyp Restless leg syndrome Shingles Solitary rectal ulcer syndrome Stage III chronic kidney disease Surgical History Surgical History Status post appendectomy Status post bilateral hip replacements Status post bilateral knee replacements Status post breast biopsy Bilateral with benign histology
[2021-02-28 22:12] VITALS: BP 147/87; PULSE 73; RESP 18; TEMP 37.2; O2SAT 99
[2021-02-28] MEDS: PANTOPRAZOLE 40 MG TABLET PO (22:12)
== END 2021-02-28 22:21 | disposition home or self-care (01) ==
PROVIDERS: Emergency Medicine; Emergency Provider Emergency Medicine; PCP Family Medicine
DX: R10.13 Epigastric pain (principal); I13.0 Hypertensive heart and chronic kidney disease with heart failure and stage 1 through stage 4 chronic kidney disease, or unspecified chronic kidney disease; N18.32 Chronic kidney disease, stage 3b; I50.40 Unspecified combined systolic (congestive) and diastolic (congestive) heart failure; D63.1 Anemia in chronic kidney disease; I25.10 Atherosclerotic heart disease of native coronary artery without angina pectoris; E78.5 Hyperlipidemia, unspecified; E03.9 Hypothyroidism, unspecified; I34.1 Nonrheumatic mitral (valve) prolapse; G47.33 Obstructive sleep apnea (adult) (pediatric); I48.0 Paroxysmal atrial fibrillation; G25.81 Restless legs syndrome; K21.9 Gastro-esophageal reflux disease without esophagitis; F41.8 Other specified anxiety disorders; K58.9 Irritable bowel syndrome, unspecified; Z79.82 Long term (current) use of aspirin; Z96.643 Presence of artificial hip joint, bilateral; Z96.653 Presence of artificial knee joint, bilateral; Z87.19 Personal history of other diseases of the digestive system; Z98.42 Cataract extraction status, left eye; Z98.41 Cataract extraction status, right eye; R94.31 Abnormal electrocardiogram [ECG] [EKG]
CPT/HCPCS: 36415; 71046; 80048; 84484; 85025; 85610; 85730; 93005; 99284; A9270

== ENCOUNTER 2021-03-16 06:08 | Emergency (ER) | payer MEDICARE, SELFPAY ==
--- NOTE | ~2021-03-16 | XR_ITS ---
XR chest 2V 03/16/2021 08:07 Indication: Chest pain Procedure: AP and lateral views of the chest Comparison: Comparison to multiple prior studies sequentially, with oldest reviewed study dated 10/2020. Findings: Cardiomegaly. No focal air space disease, pulmonary edema, pleural effusion or suspected pn eumothorax. There are degenerative changes of the shoulders. The lungs are hyperinflated which is con sistent with, but not diagnostic of chronic obstructive pulmonary disease. There are coronary artery stents. Impression: 1: No acute cardiopulmonary disease. Reviewed, dictated and finalized at location B. Impression: 1: No acute cardiopulmonary disease.
[2021-03-16 06:22] VITALS: BP 152/78; PULSE 65; RESP 18; TEMP 36.2; O2SAT 99
--- NOTE | 2021-03-16 06:27 | ECG_ITS ---
Measurements Intervals [place] Rate: 60 P: 74 CA: 152 QRS: -31 QRSD: 93 T: 27 QT: 422 QTc: 422 Interpretive Statements SINUS RHYTHM LEFT AXIS DEVIATION ANTEROSEPTAL INFARCT, AGE INDETERMINATE ABNORMAL ECG Electronically Signed On 03-16-2021 7:41:24 CDT by Marlon Joe D.O.
[2021-03-16 07:15] VITALS: BP 136/90; PULSE 55; RESP 10; O2SAT 98
--- NOTE | 2021-03-16 08:04 | ED.GENADULT ---
HPI - General Adult General Chief complaint: Chest Pain Stated complaint: Chest Pain Time Seen by Provider: 03/16/21 07:01 History of Present Illness HPI narrative: Patient is an 80-year-old female who presents to the ER with reports abdominal pain and chest pain. Reports overnight she started having bloating and cramping of her abdomen. It radiated into her chest causing discomfort as well. She then had two episodes of diarrhea. Her symptoms have resolved. She has no nausea/vomiting/shortness of breath. No chest pain or chest pressure. She has episodes similar to this quite often. Related Data Home Medications Medication Instructions Recorded Confirmed hydralazine 10 mg PO DAILY 12/07/20 03/02/21 pregabalin 50 mg PO DAILY 12/07/20 03/02/21 spironolactone 25 mg PO DAILY 12/07/20 03/02/21 aspirin 81 mg tablet,delayed 81 mg PO DAILY 12/15/20 03/02/21 release clopidogrel 75 mg tablet 75 mg PO DAILY 12/15/20 03/02/21 ferrous sulfate 325 mg (65 mg 325 mg PO DAILY 12/15/20 03/02/21 iron) tablet furosemide 20 mg tablet 20 mg PO QAM 12/15/20 03/02/21 hyoscyamine sulfate 0.125 mg 0.125 mg PO QID 12/15/20 03/02/21 sublingual tablet levothyroxine 175 mcg capsule 175 mcg PO DAILY 12/15/20 03/02/21 lidocaine HCl 2 % mucosal jelly 1 applic TOPICAL TID PRN 12/15/20 03/02/21 nitroglycerin 0.4 mg sublingual 0.4 mg SUBLINGUAL Q5M PRN 12/15/20 03/02/21 tablet oxybutynin chloride 10 mg 10 mg PO DAILY 12/15/20 03/02/21 tablet,extended release 24 hr pantoprazole 40 mg tablet,delayed 40 mg PO QAM 12/15/20 03/02/21 release prednisolone acetate 1 % eye 1 drp RIGHT EYE Q12H 12/15/20 03/02/21 drops,suspension sertraline 25 mg tablet 25 mg PO DAILY 12/15/20 03/02/21 trazodone 100 mg tablet 100 mg PO QHS PRN 12/15/20 03/02/21 Entresto 1 tablet PO BID 02/10/21 03/02/21 Allergies Allergy/AdvReac Type Severity Reaction Status Date / Time Penicillins Allergy Unknown Rash Verified 03/02/21 10:50 Review of Systems Review of Systems: All systems reviewed & are unremarkable except as noted in HPI and below Constitutional: Constitutional: Denies chills, Denies fever(s) and Denies weakness Cardiovascular: Cardiovascular: Reports chest pain, Denies rapid heart rate and Denies radiating jaw, neck or arm pain Respiratory: Respiratory: Denies cough, Denies dyspnea and Denies wheezing Gastrointestinal: Gastrointestinal: Reports abdominal pain, Reports bloating, Reports diarrhea, Denies nausea and Denies vomiting Genitourinary: Genitourinary: Denies nocturia, Denies dysuria and Denies flank pain [facility] Past Medical History Medical History Acute kidney failure, unspecified Anxiety and depression Chronic anemia Chronic kidney disease, stage 3 Chronic kidney disease, stage 3b Congestive heart failure Systolic and diastolic congestive heart failure Echo 11/27 showed EF 50%. Echo 01/14/2019: EF measured at 39%. September 2018 EF was 25%. Echo 12/02/2019 EF 50-55%. Grade 1 diastolic function. Coronary artery disease With multivessel surgical revascularization with PCI at [place] October 2017. 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 Frequent headaches GERD (gastroesophageal reflux disease) With history of esophageal stricture requiring dilatation. History of GI bleed History of rectal polyps Hyperlipidemia Hypertension Hypothyroidism TSH in November 2019 was a bit low, with normal T4. Irritable bowel syndrome Ischemic cardiomyopathy Mitral valve prolapse Myasthenia gravis Questionable history of. Obstructive sleep apnea Ocular herpes zoster History of shingles to the left eye, on chronic antiviral therapy. Paroxysmal atrial fibrillation No longer on long-term anticoagulation due to history of falls. Peripheral neuropathy Rectal polyp R
[2021-03-16 08:06] LABS: Basophils Percent Auto 0.3 % (0.2-1.2); Eosinophils Absolute Auto 0.1 K/mm3 (0-0.3); Eosinophils Percent Auto 1.2 % (0-4.4); Hematocrit 31.8 % (37.0-47.0); Immature Granulocyte Absolute 0.09 K/mm3 (0.00-0.031); Immature Granulocyte Percent A 1.2 % (0-0.5); Lymphocytes Absolute Auto 1.22 K/mm3 (0.9-3.2); Lymphocytes Percent Auto 16.3 % (18.3-44.2); Mean Corpuscular HGB Conc 31.4 g/dl (32-36); Mean Corpuscular Hemoglobin 30.8 pg (26-34); Mean Corpuscular Volume 97.8 fl (80-100); Mean Platelet Volume 9.5 fl (7.4-10.4); Monocytes Absolute Auto 0.5 K/mm3 (0.1-0.6); Monocytes Percent Auto 7.2 % (2.6-8.5); Neutrophils Absolute Auto 5.5 K/mm3 (1.3-6.7); Neutrophils Percent Auto 73.8 % (45.5-73.1); Platelet Count Result 216 k/mm3 (150-375); Red Blood Count 3.25 M/mm3 (4.2-5.4); Red Cell Distribution Width 13.8 % (11.5-14.5); White Blood Count 7.5 K/mm3 (4.5-10.0)
[2021-03-16 08:14] LABS: Alanine Aminotransferase 20 U/L (4-35); Albumin Level 3.7 g/dL (3.5-5.1); Alkaline Phosphatase 84 U/L (38-126); Anion Gap 8 mmol/L (8-16); Aspartate Amino Transferase 40 U/L (14-36); Bilirubin,Total 0.4 mg/dL (0.2-1.3); Blood Urea Nitrogen 16 mg/dL (7-17); Calcium 8.8 mg/dL (8.4-10.2); Carbon Dioxide 25 mmol/L (22-30); Chloride 104 mmol/L (98-107); Estimated Glomerular Filt Rate 43; Glucose 85 mg/dL (65-105); Lipase 85 U/L (23-300); Sodium 137 mmol/L (137-145)
[2021-03-16 08:25] LABS: Troponin I < 0.012 ng/mL (0.000-0.034)
[2021-03-16 09:45] VITALS: BP 162/104; PULSE 61; RESP 19; O2SAT 99
== END 2021-03-16 09:48 | disposition home or self-care (01) ==
PROVIDERS: Emergency Provider Emergency Medicine; PCP Family Medicine
DX: R07.89 Other chest pain (principal); I13.0 Hypertensive heart and chronic kidney disease with heart failure and stage 1 through stage 4 chronic kidney disease, or unspecified chronic kidney disease; N18.32 Chronic kidney disease, stage 3b; I50.9 Heart failure, unspecified; Z79.01 Long term (current) use of anticoagulants; G47.30 Sleep apnea, unspecified; I48.91 Unspecified atrial fibrillation; E03.9 Hypothyroidism, unspecified; I25.10 Atherosclerotic heart disease of native coronary artery without angina pectoris
CPT/HCPCS: 36415; 71046; 80053; 83690; 84484; 85025; 93005; 99284

== ENCOUNTER 2021-04-02 16:54 | Emergency (ER) | payer MEDICARE, SELFPAY ==
--- NOTE | ~2021-04-02 | XR_ITS ---
EXAMINATION: XR chest 2V DATE: 04/02/2021 17:39 INDICATION: Midsternal chest pain. TECHNIQUE: Frontal and lateral views of the chest were obtained. COMPARISON: Chest 2 views 03/16/2021 FINDINGS: There is mild scarring at the lung apices. No pleural effusion or pneumothorax. The heart s ize is normal. Calcified mediastinal lymph nodes are consistent with old granulomatous disease. There are surgical clips in right abdomen. IMPRESSION: 1. Stable mild scarring at the lung apices. Reviewed, dictated and finalized at location A.
--- NOTE | 2021-04-02 16:55 | ECG_ITS ---
Measurements Intervals [place] Rate: 71 P: 150 CT: 154 QRS: -21 QRSD: 93 T: 0 QT: 321 QTc: 349 Interpretive Statements ECTOPIC ATRIAL RHYTHM ANTEROSEPTAL INFARCT, AGE INDETERMINATE BORDERLINE ST-T WAVE ABNORMALITY- INF/HIGH LAT LEADS BASELINE ARTIFACT- I, II, III, AVR, AVL ABNORMAL ECG Electronically Signed On 04-02-2021 19:31:21 CDT by Marlon Joe D.O.
[2021-04-02 17:07] VITALS: BP 130/82; PULSE 75; RESP 16; TEMP 36.8; O2SAT 97
[2021-04-02 17:14] LABS: Basophils Percent Auto 0.5 % (0.2-1.2); Eosinophils Absolute Auto 0.1 K/mm3 (0-0.3); Eosinophils Percent Auto 1.6 % (0-4.4); Hematocrit 30.4 % (37.0-47.0); Hemoglobin 9.7 g/dL (12.0-15.0); Immature Granulocyte Absolute 0.03 K/mm3 (0.00-0.031); Immature Granulocyte Percent A 0.7 % (0-0.5); Lymphocytes Absolute Auto 1.03 K/mm3 (0.9-3.2); Lymphocytes Percent Auto 23.8 % (18.3-44.2); Mean Corpuscular HGB Conc 31.9 g/dl (32-36); Mean Corpuscular Hemoglobin 30.7 pg (26-34); Mean Corpuscular Volume 96.2 fl (80-100); Mean Platelet Volume 9.5 fl (7.4-10.4); Monocytes Absolute Auto 0.4 K/mm3 (0.1-0.6); Monocytes Percent Auto 9.2 % (2.6-8.5); Neutrophils Absolute Auto 2.8 K/mm3 (1.3-6.7); Neutrophils Percent Auto 64.2 % (45.5-73.1); Platelet Count Result 239 k/mm3 (150-375); Red Blood Count 3.16 M/mm3 (4.2-5.4); White Blood Count 4.3 K/mm3 (4.5-10.0)
[2021-04-02 17:24] LABS: INR 0.9; Prothrombin Time 13.2 Seconds (11.1-14.7)
[2021-04-02 17:25] LABS: Partial Thromboplastin Time 29.2 SECONDS (22.3-36.8)
[2021-04-02 17:30] LABS: Anion Gap 7 mmol/L (8-16); Blood Urea Nitrogen 14 mg/dL (7-17); Calcium 8.9 mg/dL (8.4-10.2); Carbon Dioxide 25 mmol/L (22-30); Chloride 104 mmol/L (98-107); Estimated CRCL calculation 19 ml/min; Estimated Glomerular Filt Rate 33; Glucose 92 mg/dL (65-105); Potassium 3.8 mmol/L (3.4-5.0); Sodium 136 mmol/L (137-145)
[2021-04-02 17:41] LABS: Troponin I < 0.012 ng/mL (0.000-0.034)
[2021-04-02] MEDS: ASPIRIN 81 MG CHEWABLE TABLET 324 MG PO (19:15)
[2021-04-02 19:17] VITALS: BP 155/87; PULSE 73; RESP 15; O2SAT 99
--- NOTE | 2021-04-02 19:26 | ED.CHESTPAIN ---
HPI - Chest Pain General Chief Complaint: Chest Pain Stated Complaint: Chest Pain, ABD Pain Time Seen by Provider: 04/02/21 19:10 History of Present Illness HPI narrative: Burning pain throughout the abdomen and chest. Worst in the lower abdomen. 8/10 in severity. She also reports multiple loose stools, no blood. She has been seen for the same complaint numerous times. She recently saw Dr. Coates and had her pantoprazole dose doubled. She reports no significnat improvement. No SOB, fever, cough congestion, weakness, dizziness. Related Data Home Medications Medication Instructions Recorded Confirmed hydralazine 10 mg PO DAILY 12/07/20 03/31/21 aspirin 81 mg tablet,delayed 81 mg PO DAILY 12/15/20 03/31/21 release clopidogrel 75 mg tablet 75 mg PO DAILY 12/15/20 03/31/21 ferrous sulfate 325 mg (65 mg 325 mg PO DAILY 12/15/20 03/31/21 iron) tablet furosemide 20 mg tablet 20 mg PO QAM 12/15/20 03/31/21 levothyroxine 175 mcg capsule 175 mcg PO DAILY 12/15/20 03/31/21 lidocaine HCl 2 % mucosal jelly 1 applic TOPICAL TID PRN 12/15/20 03/02/21 nitroglycerin 0.4 mg sublingual 0.4 mg SUBLINGUAL Q5M PRN 12/15/20 03/31/21 tablet prednisolone acetate 1 % eye 1 drp RIGHT EYE Q12H 12/15/20 03/31/21 drops,suspension trazodone 100 mg tablet 100 mg PO QHS PRN 12/15/20 03/31/21 Entresto 1 tablet PO BID 02/10/21 03/31/21 Allergies Allergy/AdvReac Type Severity Reaction Status Date / Time Penicillins Allergy Unknown Rash Verified 04/02/21 19:17 Review of Systems Review of Systems: All systems reviewed & are unremarkable except as noted in HPI and below PMFSH Past Medical History Medical History Acute kidney failure, unspecified Anxiety and depression Chronic anemia Chronic kidney disease, stage 3 Chronic kidney disease, stage 3b Congestive heart failure Systolic and diastolic congestive heart failure Echo 11/27 showed EF 50%. Echo 01/14/2019: EF measured at 39%. September 2018 EF was 25%. Echo 12/02/2019 EF 50-55%. Grade 1 diastolic function. Coronary artery disease With multivessel surgical revascularization with PCI at [place] October 2017. Cardiac catheterization 10/17/2018-mild preserved intra-stent luminal diameter Current use of detention anticoagulation Depression with anxiety Detached retina Right-sided, x2. Frequent headaches GERD (gastroesophageal reflux disease) With history of esophageal stricture requiring dilatation. History of GI bleed History of rectal polyps Hyperlipidemia Hypertension Hypothyroidism TSH in November 2019 was a bit low, with normal T4. Irritable bowel syndrome Ischemic cardiomyopathy Mitral valve prolapse Myasthenia gravis Questionable history of. Obstructive sleep apnea Ocular herpes zoster History of shingles to the left eye, on chronic antiviral therapy. Paroxysmal atrial fibrillation No longer on long-term anticoagulation due to history of falls. Peripheral neuropathy Rectal polyp Restless leg syndrome Shingles Solitary rectal ulcer syndrome Stage III chronic kidney disease Surgical History Surgical History Status post appendectomy Status post bilateral hip replacements Status post bilateral knee replacements Status post breast biopsy Bilateral with benign histology. Status post carpal tunnel release Status post cataract extraction Bilateral. Status post cholecystectomy Status post laminectomy Lumbar spine. Status post LASIK surgery Status post rotator cuff repair Status post tonsillectomy Family History Family History Mother Cerebrovascular accident Diabetes mellitus Hypertension Sibling Cerebrovascular accident Other Acute myocardial infarction Social History Social History Social History: The patient lives with her in
[2021-04-02 20:00] VITALS: BP 148/88; PULSE 62; RESP 19; O2SAT 99
[2021-04-02 20:30] VITALS: BP 146/88; PULSE 59; RESP 17; O2SAT 99
[2021-04-02 20:32] LABS: Troponin I 0.016 ng/mL (0.000-0.034)
[2021-04-02 21:17] VITALS: BP 146/88; PULSE 60; RESP 20; TEMP 37; O2SAT 99
== END 2021-04-02 20:50 | disposition home or self-care (01) ==
PROVIDERS: Emergency Medicine; Emergency Provider Emergency Medicine; PCP Family Medicine
DX: K29.70 Gastritis, unspecified, without bleeding (principal); R07.89 Other chest pain; I13.0 Hypertensive heart and chronic kidney disease with heart failure and stage 1 through stage 4 chronic kidney disease, or unspecified chronic kidney disease; N18.9 Chronic kidney disease, unspecified; I50.9 Heart failure, unspecified; E78.5 Hyperlipidemia, unspecified; F41.9 Anxiety disorder, unspecified; F32.9 Major depressive disorder, single episode, unspecified; E03.9 Hypothyroidism, unspecified; K21.9 Gastro-esophageal reflux disease without esophagitis; Z79.01 Long term (current) use of anticoagulants
CPT/HCPCS: 36415; 71046; 80048; 84484; 85025; 85610; 85730; 93005; 96365; 99284; A9270; J0131

== ENCOUNTER 2021-05-12 01:16 | Day surgery (SDC) | payer MEDICARE, SELFPAY ==
[2021-04-29 13:12] VITALS: BMI 17.8
--- NOTE | 2021-05-12 10:07 | WPDANESEPPF ---
Anes - Initial Pre Proc Eval Procedure: Operation Date: 05/12/21 11:00 Proposed Procedures p Esophagogastroduodenoscopy - Otis Coates MD Date/Time: 05/12/21 10:07 Surgeon: Otis Coates MD Pre Op Diagnosis: atypical chest pain Patient Data Age: 80 Gender: F Height: 1.68 m Weight: 50 kg Allergies Allergy/AdvReac Type Severity Reaction Status Date / Time Penicillins Allergy Unknown Rash Verified 05/12/21 10:06 Home Medications Medication Instructions Recorded Confirmed Type hydralazine 10 mg PO DAILY 12/07/20 04/29/21 History clopidogrel 75 mg tablet 75 mg PO DAILY 12/15/20 05/12/21 History ferrous sulfate 325 mg (65 mg 325 mg PO DAILY 12/15/20 04/29/21 History iron) tablet furosemide 20 mg tablet 20 mg PO QAM 12/15/20 04/29/21 History nitroglycerin 0.4 mg sublingual 0.4 mg SUBLINGUAL Q5M PRN 12/15/20 04/29/21 History tablet Entresto 1 tablet PO BID 02/10/21 04/29/21 History hyoscyamine sulfate 0.125 mg See Rx Instructions .ROUTE 03/16/21 04/29/21 Rx sublingual tablet .COMPLEX #180 tablet pantoprazole 40 mg tablet,delayed 40 mg PO BID #60 tablet 03/31/21 04/29/21 Rx release alprazolam 0.25 mg tablet 0.25 mg PO TID PRN #30 tablet 04/18/21 04/29/21 Rx betamethasone dipropionate 0.05 % 1 applic TOPICAL DAILY PRN #15 g 04/18/21 04/29/21 Rx topical cream levothyroxine 125 mcg tablet 125 mcg PO DAILY 04/18/21 04/29/21 History oxybutynin chloride 10 mg 10 mg PO DAILY 04/18/21 04/29/21 History tablet,extended release 24 hr sertraline 25 mg tablet 25 mg PO DAILY 04/18/21 04/29/21 History acyclovir 200 mg PO DAILY PRN 04/29/21 04/29/21 History atorvastatin 40 mg PO DAILY 04/29/21 04/29/21 History cholecalciferol (vitamin D3) 5,000 unit PO DAILY 04/29/21 04/29/21 History Patient hx anesthesia problems: none Family hx anesthesia problems: none [facility] Past Medical History Medical History Acute kidney failure, unspecified Anxiety and depression Chronic anemia Chronic kidney disease, stage 3 Chronic kidney disease, stage 3b Congestive heart failure Systolic and diastolic congestive heart failure Echo 11/27 showed EF 50%. Echo 01/14/2019: EF measured at 39%. September 2018 EF was 25%. Echo 12/02/2019 EF 50-55%. Grade 1 diastolic function. Coronary artery disease With multivessel surgical revascularization with PCI at [place] October 2017. Cardiac catheterization 10/17/2018-mild preserved intra-stent luminal diameter Current use of fdc anticoagulation Depression with anxiety Detached retina Right-sided, x2. Frequent headaches GERD (gastroesophageal reflux disease) With history of esophageal stricture requiring dilatation. History of GI bleed History of rectal polyps Hyperlipidemia Hypertension Hypothyroidism TSH in November 2019 was a bit low, with normal T4. Irritable bowel syndrome Ischemic cardiomyopathy Mitral valve prolapse Myasthenia gravis Questionable history of. Obstructive sleep apnea Ocular herpes zoster History of shingles to the left eye, on chronic antiviral therapy. Paroxysmal atrial fibrillation No longer on long-term anticoagulation due to history of falls. Peripheral neuropathy Rectal polyp Restless leg syndrome Shingles Solitary rectal ulcer syndrome Stage III chronic kidney disease Surgical History Surgical History Status post appendectomy Status post bilateral hip replacements Status post bilateral knee replacements Status post breast biopsy Bilateral with benign histology. Status post carpal tunnel release Status post cataract extraction Bilateral. Status post cholecystectomy Status post laminectomy Lumbar spine. Status post LASIK surgery Status post rotator cuff repair Status post tonsillectomy Family History Family History Mother Cerebrovascular accident Diabetes mellitus Hy
[2021-05-12 10:09] VITALS: BP 157/105; PULSE 79; RESP 18; TEMP 36.4; O2SAT 97; BMI 19.3
[2021-05-12] MEDS: LACTATED RINGERS 1,000 ML 150 ML IV CONT (10:28)
--- NOTE | 2021-05-12 10:29 | WPDGICN ---
Assessment and Plan Assessment and plan (1) Atypical chest pain: Code(s): R07.89 - Other chest pain Status: Acute Assessment and Plan: Patient with atypical chest pain. Known to have GE reflux disease plan is for EGD to assess more thoroughly. Currently anticipate continuing pantoprazole 40 mg p.o. b.i.d. as well as bland diet and anti-reflux measures. Further recommendations will be given after endoscopy. (2) Abdominal pain: Qualifiers: Abdominal location: generalized Qualified Code(s): R10.84 - Generalized abdominal pain Code(s): R10.9 - Unspecified abdominal pain Status: Acute Assessment and Plan: Patient complains of abdominal bloating. Plan is to monitor her diet. Gas-X may be of some benefit (3) Solitary rectal ulcer syndrome: Code(s): K62.6 - Ulcer of anus and rectum Status: Acute Assessment and Plan: patient felt to have benign rectal ulcer syndrome she has had multiple biopsies are negative. Stool softeners to avoid constipation as encourage. (4) CAD (coronary artery disease): Code(s): I25.10 - Atherosclerotic heart disease of [place] coronary artery without angina pectoris Status: Chronic GI Consult Note Consult date/time: 05/12/21 10:29 HPI: Dhara Harry is a 80 year old female presents for evaluation of chest pain. Patient has a known history of atherosclerotic heart disease also known to have GE reflux disease. she has recently had exacerbation of her chest pain and presents today for evaluation. Chest pain seems improved on increasing dose of pantoprazole to40mg p.o. b.i.d.. Patient's pain is variously described as pressure and burning. Patient denies any weight loss. She has no dysphagia. She is on long-term anticoagulation, currently with Plavix. Past medical history is significant for solitary rectal ulcer syndrome she has had no recent bleeding multiple colonoscopies and biopsies of confirmed this to be benign. Additionally patient suffers from significant anxiety. Review of Systems Review of Systems: All systems reviewed & are unremarkable except as noted in HPI and below PMFSH Past Medical History Medical History Acute kidney failure, unspecified Anxiety and depression Chronic anemia Chronic kidney disease, stage 3 Chronic kidney disease, stage 3b Congestive heart failure Systolic and diastolic congestive heart failure Echo 11/27 showed EF 50%. Echo 01/14/2019: EF measured at 39%. September 2018 EF was 25%. Echo 12/02/2019 EF 50-55%. Grade 1 diastolic function. Coronary artery disease With multivessel surgical revascularization with PCI at [place] October 2017. Cardiac catheterization 10/17/2018-mild preserved intra-stent luminal diameter Current use of penitentiary anticoagulation Depression with anxiety Detached retina Right-sided, x2. Frequent headaches GERD (gastroesophageal reflux disease) With history of esophageal stricture requiring dilatation. History of GI bleed History of rectal polyps Hyperlipidemia Hypertension Hypothyroidism TSH in November 2019 was a bit low, with normal T4. Irritable bowel syndrome Ischemic cardiomyopathy Mitral valve prolapse Myasthenia gravis Questionable history of. Obstructive sleep apnea Ocular herpes zoster History of shingles to the left eye, on chronic antiviral therapy. Paroxysmal atrial fibrillation No longer on long-term anticoagulation due to history of falls. Peripheral neuropathy Rectal polyp Restless leg syndrome Shingles Solitary rectal ulcer syndrome Stage III chronic kidney disease Surgical History Surgical History Status post appendectomy Status post bilateral hip replacements Status post bilateral knee replacements Status post breast biopsy Bilateral with benign histology. Status post carpal tunnel release Status post cat
[2021-05-12 10:44] VITALS: BP 144/88; PULSE 69; RESP 19; O2SAT 100
[2021-05-12 10:54] VITALS: BP 132/79; PULSE 72; RESP 18; O2SAT 100
[2021-05-12 11:04] VITALS: BP 145/82; PULSE 63; RESP 25; O2SAT 100
== END 2021-05-12 11:20 | disposition home or self-care (01) ==
PROVIDERS: PCP Family Medicine; Visit Provider Internal Medicine Gastroenterology
PROC: 0DJ08ZZ Inspection of Upper Intestinal Tract, Via Natural or Artificial Opening Endoscopic (ICD-10-PCS; CPT 43235; principal; 2021-05-12 11:00)
DX: R07.89 Other chest pain (principal); I13.0 Hypertensive heart and chronic kidney disease with heart failure and stage 1 through stage 4 chronic kidney disease, or unspecified chronic kidney disease; N18.32 Chronic kidney disease, stage 3b; I50.40 Unspecified combined systolic (congestive) and diastolic (congestive) heart failure; I48.0 Paroxysmal atrial fibrillation; G62.9 Polyneuropathy, unspecified; I34.1 Nonrheumatic mitral (valve) prolapse; I25.5 Ischemic cardiomyopathy; K58.9 Irritable bowel syndrome, unspecified; E03.9 Hypothyroidism, unspecified; K21.9 Gastro-esophageal reflux disease without esophagitis; F41.8 Other specified anxiety disorders; I25.10 Atherosclerotic heart disease of native coronary artery without angina pectoris; G47.33 Obstructive sleep apnea (adult) (pediatric); G25.81 Restless legs syndrome; Z95.5 Presence of coronary angioplasty implant and graft; Z79.02 Long term (current) use of antithrombotics/antiplatelets
CPT/HCPCS: 43239; 87081; J2704; J7120

== ENCOUNTER 2021-05-13 07:24 | Emergency (ER) | payer MEDICARE, SELFPAY ==
--- NOTE | ~2021-05-13 | CT_ITS ---
EXAMINATION: CT abdomen pelvis wo con DATE: 05/13/2021 08:59 INDICATION: Abdominal pain post endoscopy TECHNIQUE: Computed tomography (CT) of the abdomen and pelvis was performed without intravenous contr ast. Automated exposure control and iterative reconstruction technique were employed. The dose-length product was 380.21 mGy-cm. COMPARISON: 02/10/21 and 12/07/2020 FINDINGS: Unchanged mild bronchiectasis and mild basilar atelectasis in the bilateral lower lobes. Cardiomegaly with at least moderate sized pericardial effusion. There is chronic coronary artery calcific a cyst versus stenting. There are few scattered tiny calcifications consistent with old granulomatous diseas e. Unchanged mild intra and extra hepatic biliary ductal dilation likely related to prior cholecystec anshu with surgical clips at the gallbladder fossa. There are bilateral simple and hyperdense proteina ceous/hemorrhagic cysts at both kidneys, the largest on the left measuring 1.7 cm. Pancreas and bilat eral adrenal glands are normal. There is mild colonic diverticulosis with a sigmoid predominance. Th ere is no adjacent inflammatory change to suggest diverticulitis. No bowel obstruction. The appendix is not visualized. Portions of the otherwise normal-appearing bladder and portions of the deep pelvis are obscured by dense metallic streak artifact from bilateral total hip arthroplasties. There are nu merous phleboliths in the pelvis and along the right gonadal vein. Prominent wall thickening at the d istal rectum. The uterus is not identified and has likely been surgically resected. No pathologically enlarged abdominal or pelvic lymphadenopathy. There is calcified atherosclerosis of the aorta and ma ny of the other arteries. Mild lumbar levocurvature with severe spondylosis. Old healed insufficiency fractures of the bilateral sacral ala and left inferior pubic ramus. IMPRESSION: 1. Wall thickening at the distal rectum with differential including proctitis, hemorrhoids and malign raphael. Correlate with physical exam and if not recently performed to further evaluation with sigmoidos copy. Line 2. Cardiomegaly with new moderate-sized pericardial effusion. Reviewed, dictated and finalized at location A. IMPRESSION: 1. Wall thickening at the distal rectum with differential including proctitis, hemorrhoids and malignancy. Correlate with physical exam and if not recently pe rformed to further evaluation with sigmoidoscopy. Line 2. Cardiomegaly with new moderate-sized pericardial effusion.
[2021-05-13 07:30] VITALS: BP 177/92; PULSE 73; RESP 16; TEMP 36.7; O2SAT 100
--- NOTE | 2021-05-13 07:34 | ED.GENADULT ---
HPI - General Adult General Chief complaint: Abdominal Pain Stated complaint: my belly is hard Time Seen by Provider: 05/13/21 07:29 Source: RN notes reviewed History of Present Illness HPI narrative: Patient presents to emergency department from home for abdominal pain patient states that she had an EGD performed by Dr. Coates yesterday. States since last night she has had burning in her abdomen and has been unable to sleep. States the pain is diffuse throughout the abdomen states has been associated with several episodes of loose stool she denies any fevers or chills chest pain shortness of breath vomiting or any other symptoms. States that the EGD was performed only no colonoscopy patient states she does have a history of chronic abdominal pain Related Data Home Medications Medication Instructions Recorded Confirmed clopidogrel 75 mg tablet 75 mg PO DAILY 12/15/20 05/12/21 ferrous sulfate 325 mg (65 mg 325 mg PO DAILY 12/15/20 05/12/21 iron) tablet furosemide 20 mg tablet 20 mg PO QAM 12/15/20 05/12/21 nitroglycerin 0.4 mg sublingual 0.4 mg SUBLINGUAL Q5M PRN 12/15/20 04/29/21 tablet Entresto 1 tablet PO BID 02/10/21 05/12/21 levothyroxine 125 mcg tablet 125 mcg PO DAILY 04/18/21 05/12/21 oxybutynin chloride 10 mg 10 mg PO DAILY 04/18/21 05/12/21 tablet,extended release 24 hr sertraline 25 mg tablet 25 mg PO DAILY 04/18/21 05/12/21 acyclovir 200 mg PO DAILY PRN 04/29/21 05/12/21 atorvastatin 40 mg PO DAILY 04/29/21 05/12/21 cholecalciferol (vitamin D3) 5,000 unit PO DAILY 04/29/21 05/12/21 sacubitril-valsartan [Entresto] 05/13/21 Allergies Allergy/AdvReac Type Severity Reaction Status Date / Time Penicillins Allergy Unknown Rash Verified 05/13/21 07:47 Review of Systems Review of Systems: Gen.: Denies fevers or chills ENT: Denies congestion Respiratory: Denies shortness of breath or cough CV: Denies chest pain or palpitations GI: See HPI denies burning, urgency, frequency or hematuria Musculoskeletal: Denies back pain or muscle pain Neuro: Denies numbness, tingling, weakness or focal weakness Skin: Denies rash Except as documented, all other systems reviewed and negative [facility] Past Medical History Medical History Acute kidney failure, unspecified Anxiety and depression Chronic anemia Chronic kidney disease, stage 3 Chronic kidney disease, stage 3b Congestive heart failure Systolic and diastolic congestive heart failure Echo 11/27 showed EF 50%. Echo 01/14/2019: EF measured at 39%. September 2018 EF was 25%. Echo 12/02/2019 EF 50-55%. Grade 1 diastolic function. Coronary artery disease With multivessel surgical revascularization with PCI at [facility] October 2017. 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 Frequent headaches GERD (gastroesophageal reflux disease) With history of esophageal stricture requiring dilatation. History of GI bleed History of rectal polyps Hyperlipidemia Hypertension Hypothyroidism TSH in November 2019 was a bit low, with normal T4. Irritable bowel syndrome Ischemic cardiomyopathy Mitral valve prolapse Myasthenia gravis Questionable history of. Obstructive sleep apnea Ocular herpes zoster History of shingles to the left eye, on chronic antiviral therapy. Paroxysmal atrial fibrillation No longer on long-term anticoagulation due to history of falls. Peripheral neuropathy Rectal polyp Restless leg syndrome Shingles Solitary rectal ulcer syndrome Stage III chronic kidney disease Surgical History Surgical History Status post appendectomy Status post bilateral hip replacements Status post bilateral knee replacements Status post breast biopsy Bilateral with benign histology. Status post carpal tunnel release Status post
[2021-05-13 08:16] LABS: Basophils Percent Auto 0.6 % (0.2-1.2); Eosinophils Absolute Auto 0.1 K/mm3 (0-0.3); Eosinophils Percent Auto 0.9 % (0-4.4); Hematocrit 32.9 % (37.0-47.0); Hemoglobin 10.5 g/dL (12.0-15.0); Immature Granulocyte Absolute 0.04 K/mm3 (0.00-0.031); Immature Granulocyte Percent A 0.7 % (0-0.5); Lymphocytes Absolute Auto 0.83 K/mm3 (0.9-3.2); Lymphocytes Percent Auto 15.5 % (18.3-44.2); Mean Corpuscular HGB Conc 31.9 g/dl (32-36); Mean Corpuscular Hemoglobin 31.3 pg (26-34); Mean Corpuscular Volume 98.2 fl (80-100); Mean Platelet Volume 10.1 fl (7.4-10.4); Monocytes Absolute Auto 0.5 K/mm3 (0.1-0.6); Neutrophils Absolute Auto 3.9 K/mm3 (1.3-6.7); Neutrophils Percent Auto 73.3 % (45.5-73.1); Platelet Count Result 217 k/mm3 (150-375); Red Blood Count 3.35 M/mm3 (4.2-5.4); Red Cell Distribution Width 13.9 % (11.5-14.5); White Blood Count 5.3 K/mm3 (4.5-10.0)
[2021-05-13 08:26] LABS: Alanine Aminotransferase 34 U/L (4-35); Albumin Level 4.9 g/dL (3.5-5.1); Alkaline Phosphatase 75 U/L (38-126); Anion Gap 7 mmol/L (8-16); Aspartate Amino Transferase 61 U/L (14-36); Bilirubin,Total 0.7 mg/dL (0.2-1.3); Blood Urea Nitrogen 18 mg/dL (7-17); Calcium 9.6 mg/dL (8.4-10.2); Carbon Dioxide 29 mmol/L (22-30); Chloride 100 mmol/L (98-107); Estimated CRCL calculation 19 ml/min; Estimated Glomerular Filt Rate 29; Glucose 82 mg/dL (65-110); Lipase 257 U/L (23-300); Potassium 3.7 mmol/L (3.4-5.0); Sodium 136 mmol/L (137-145)
[2021-05-13 08:58] LABS: Add Urine Microscopic? YES; Appearance Urine Cloudy (Clear); Bilirubin Urine Negative (Negative); Blood Urine Negative (Negative); Color Urine Amber (Yellow); Glucose Urine UA Negative (Negative); Ketones Urine Negative (Negative); Leukocyte Esterase Ur Trace LEU/UL (Negative); Nitrate Urine Positive (Negative); Protein Urine Negative (Negative); RBC Urine 0-2 /hpf (0-2); Urobilinogen Urine Negative mg/dL (<2.0)
--- NOTE | 2021-05-13 09:35 | ECG_ITS ---
Measurements Intervals [place] Rate: 67 P: 73 VA: 155 QRS: -49 QRSD: 97 T: -25 QT: 415 QTc: 439 Interpretive Statements SINUS RHYTHM VENTRICULAR PREMATURE COMPLEX LEFT AXIS DEVIATION ANTEROSEPTAL INFARCT, AGE INDETERMINATE BORDERLINE T WAVE ABNORMALITY- INFERIOR LEADS BASELINE WANDER- V3-V4 ABNORMAL ECG Electronically Signed On 05-13-2021 11:59:43 CDT by Marlon Joe D.O.
[2021-05-13 11:50] VITALS: BP 160/90; PULSE 65; RESP 16; O2SAT 99
== END 2021-05-13 11:50 | disposition home or self-care (01) ==
PROVIDERS: Emergency Provider Emergency Medicine; PCP Family Medicine
DX: R10.9 Unspecified abdominal pain (principal); I31.3 Pericardial effusion (noninflammatory); K62.6 Ulcer of anus and rectum; I13.0 Hypertensive heart and chronic kidney disease with heart failure and stage 1 through stage 4 chronic kidney disease, or unspecified chronic kidney disease; I50.42 Chronic combined systolic (congestive) and diastolic (congestive) heart failure; N18.32 Chronic kidney disease, stage 3b; I25.10 Atherosclerotic heart disease of native coronary artery without angina pectoris; I48.0 Paroxysmal atrial fibrillation; I25.5 Ischemic cardiomyopathy; K21.9 Gastro-esophageal reflux disease without esophagitis; E78.5 Hyperlipidemia, unspecified; E03.9 Hypothyroidism, unspecified; G25.81 Restless legs syndrome; G47.33 Obstructive sleep apnea (adult) (pediatric); F41.8 Other specified anxiety disorders; Z98.42 Cataract extraction status, left eye; Z98.41 Cataract extraction status, right eye; Z96.643 Presence of artificial hip joint, bilateral; Z96.653 Presence of artificial knee joint, bilateral; Z87.19 Personal history of other diseases of the digestive system; I49.3 Ventricular premature depolarization; R94.31 Abnormal electrocardiogram [ECG] [EKG]
CPT/HCPCS: 36415; 74176; 80053; 81001; 83690; 85025; 93005; 99284; A9270

== ENCOUNTER 2021-05-15 12:55 | Emergency (ER) | payer MEDICARE, SELFPAY ==
--- NOTE | ~2021-05-15 | XR_ITS ---
EXAMINATION: XR chest 2V DATE: 05/15/2021 18:06 INDICATION: Chest pain. TECHNIQUE: Frontal and lateral views of the chest were obtained. COMPARISON: Chest 2 views 04/02/2021 FINDINGS: There is no pneumonia, pleural effusion, or pneumothorax. Cardiomegaly is noted. IMPRESSION: 1. Cardiomegaly. Reviewed, dictated and finalized at location A. IMPRESSION: 1. Cardiomegaly.
[2021-05-15 13:53] VITALS: BP 155/91; PULSE 80; RESP 16; TEMP 36.6; O2SAT 98
[2021-05-15 16:48] LABS: Basophils Percent Auto 0.9 % (0.2-1.2); Eosinophils Absolute Auto 0.1 K/mm3 (0-0.3); Eosinophils Percent Auto 1.5 % (0-4.4); Hematocrit 32.2 % (37.0-47.0); Hemoglobin 10.4 g/dL (12.0-15.0); Immature Granulocyte Absolute 0.03 K/mm3 (0.00-0.031); Immature Granulocyte Percent A 0.7 % (0-0.5); Lymphocytes Absolute Auto 1.13 K/mm3 (0.9-3.2); Lymphocytes Percent Auto 24.6 % (18.3-44.2); Mean Corpuscular HGB Conc 32.3 g/dl (32-36); Mean Corpuscular Hemoglobin 31.8 pg (26-34); Mean Corpuscular Volume 98.5 fl (80-100); Mean Platelet Volume 10.6 fl (7.4-10.4); Monocytes Absolute Auto 0.4 K/mm3 (0.1-0.6); Monocytes Percent Auto 8.7 % (2.6-8.5); Neutrophils Absolute Auto 2.9 K/mm3 (1.3-6.7); Neutrophils Percent Auto 63.6 % (45.5-73.1); Platelet Count Result 189 k/mm3 (150-375); Red Blood Count 3.27 M/mm3 (4.2-5.4); Red Cell Distribution Width 13.8 % (11.5-14.5); White Blood Count 4.6 K/mm3 (4.5-10.0)
[2021-05-15 16:55] LABS: Add Urine Microscopic? YES; Appearance Urine Cloudy (Clear); Bilirubin Urine Negative (Negative); Blood Urine Negative (Negative); Color Urine Amber (Yellow); Glucose Urine UA Negative (Negative); Ketones Urine Negative (Negative); Leukocyte Esterase Ur 2+ LEU/UL (Negative); Mucus Urine Rare /lpf; Nitrate Urine Negative (Negative); Protein Urine 1+ mg/dL (Negative); RBC Urine 0-2 /hpf (0-2); Specific Grav Ur 1.014 (1.001-1.035); Squamous Epithelial Cell Urine Few /hpf (Few); Urobilinogen Urine Negative mg/dL (<2.0); WBC Urine 51-75 /hpf
--- NOTE | 2021-05-15 17:00 | ECG_ITS ---
Measurements Intervals [place] Rate: 65 P: 63 ID: [id number] QRS: -42 QRSD: 90 T: -26 QT: 345 QTc: 360 Interpretive Statements SINUS RHYTHM LEFT AXIS DEVIATION ANTEROSEPTAL INFARCT, AGE INDETERMINATE CONSIDER INFERIOR INFARCT, AGE INDETERMINATE BASELINE ARTIFACT- I, III, V3-V4 ABNORMAL ECG Electronically Signed On 05-15-2021 20:05:34 CDT by Marlon Joe D.O.
--- NOTE | 2021-05-15 17:30 | ED.ABDPAIN ---
HPI - Abdominal Pain General Chief Complaint: Abdominal Pain Stated Complaint: abd pain Time Seen by Provider: 05/15/21 16:27 Source: patient Mode of arrival: ambulatory Limitations: no limitations History of Present Illness HPI narrative: This is a 80 year old female that presents to the ER for chest pain and abdominal pain present over the last couple of days. Reports the pain is burning and sharp in nature. Recently had an upper endoscopy and has follow up with her game artist soon. Denies fever, shortness of breath, vomiting, or dysuria. Related Data Home Medications Medication Instructions Recorded Confirmed clopidogrel 75 mg tablet 75 mg PO DAILY 12/15/20 05/12/21 ferrous sulfate 325 mg (65 mg 325 mg PO DAILY 12/15/20 05/12/21 iron) tablet furosemide 20 mg tablet 20 mg PO QAM 12/15/20 05/12/21 nitroglycerin 0.4 mg sublingual 0.4 mg SUBLINGUAL Q5M PRN 12/15/20 04/29/21 tablet Entresto 1 tablet PO BID 02/10/21 05/12/21 levothyroxine 125 mcg tablet 125 mcg PO DAILY 04/18/21 05/12/21 oxybutynin chloride 10 mg 10 mg PO DAILY 04/18/21 05/12/21 tablet,extended release 24 hr sertraline 25 mg tablet 25 mg PO DAILY 04/18/21 05/12/21 acyclovir 200 mg PO DAILY PRN 04/29/21 05/12/21 atorvastatin 40 mg PO DAILY 04/29/21 05/12/21 cholecalciferol (vitamin D3) 5,000 unit PO DAILY 04/29/21 05/12/21 sacubitril-valsartan [Entresto] 05/13/21 Allergies Allergy/AdvReac Type Severity Reaction Status Date / Time Penicillins Allergy Unknown Rash Verified 05/15/21 16:13 Review of Systems Review of Systems: CONSTITUTIONAL: Denies fever CARDIOVASCULAR: Reports chest pain. Denies edema. RESPIRATORY: Denies cough or dyspnea. GASTROINTESTINAL: Reports abdominal pain. Denies nausea, vomiting GENITOURINARY: Denies dysuria All systems reviewed & are unremarkable except as noted in HPI and below PMFSH Past Medical History Medical History Acute kidney failure, unspecified Anxiety and depression Chronic anemia Chronic kidney disease, stage 3 Chronic kidney disease, stage 3b Congestive heart failure Systolic and diastolic congestive heart failure Echo 11/27 showed EF 50%. Echo 01/14/2019: EF measured at 39%. September 2018 EF was 25%. Echo 12/02/2019 EF 50-55%. Grade 1 diastolic function. Coronary artery disease With multivessel surgical revascularization with PCI at [place] October 2017. Cardiac catheterization 10/17/2018-mild preserved intra-stent luminal diameter Current use of group home anticoagulation Depression with anxiety Detached retina Right-sided, x2. Frequent headaches GERD (gastroesophageal reflux disease) With history of esophageal stricture requiring dilatation. History of GI bleed History of rectal polyps Hyperlipidemia Hypertension Hypothyroidism TSH in November 2019 was a bit low, with normal T4. Irritable bowel syndrome Ischemic cardiomyopathy Mitral valve prolapse Myasthenia gravis Questionable history of. Obstructive sleep apnea Ocular herpes zoster History of shingles to the left eye, on chronic antiviral therapy. Paroxysmal atrial fibrillation No longer on long-term anticoagulation due to history of falls. Peripheral neuropathy Rectal polyp Restless leg syndrome Shingles Solitary rectal ulcer syndrome Stage III chronic kidney disease Surgical History Surgical History Status post appendectomy Status post bilateral hip replacements Status post bilateral knee replacements Status post breast biopsy Bilateral with benign histology. Status post carpal tunnel release Status post cataract extraction Bilateral. Status post cholecystectomy Status post laminectomy Lumbar spine. Status post LASIK surgery Status post rotator cuff repair Status post tonsillectomy Family History Family History Mother Cerebrovascular accident Diabetes ryann
[2021-05-15] MEDS: BELLADONNA ALK/PHENOB ELIX 10 ML, MAG HYDROX/ALUMINUM HYD/SIMETH 30 ML, LIDOCAINE HCL 2... PO (17:36)
[2021-05-15] MEDS: PANTOPRAZOLE SODIUM IV 40 MG VIAL IV PUSH (17:36)
[2021-05-15 17:39] VITALS: BP 166/95; PULSE 72; RESP 20; O2SAT 99
[2021-05-15 17:58] LABS: Alanine Aminotransferase 36 U/L (4-35); Albumin Level 4.5 g/dL (3.5-5.1); Alkaline Phosphatase 74 U/L (38-126); Anion Gap 10 mmol/L (8-16); Aspartate Amino Transferase 67 U/L (14-36); Bilirubin,Total 0.5 mg/dL (0.2-1.3); Blood Urea Nitrogen 17 mg/dL (7-17); Calcium 9.1 mg/dL (8.4-10.2); Carbon Dioxide 27 mmol/L (22-30); Chloride 96 mmol/L (98-107); Estimated CRCL calculation 18 ml/min; Estimated Glomerular Filt Rate 27; Glucose 89 mg/dL (65-110); Lipase 148 U/L (23-300); Potassium 3.5 mmol/L (3.4-5.0); Sodium 133 mmol/L (137-145)
[2021-05-15 18:10] LABS: Troponin I < 0.012 ng/mL (0.000-0.034)
[2021-05-15 18:27] VITALS: BP 161/105; PULSE 66; RESP 20; O2SAT 98
[2021-05-15 18:58] VITALS: BP 153/98; PULSE 72; RESP 18; O2SAT 97
== END 2021-05-15 19:12 | disposition home or self-care (01) ==
PROVIDERS: Emergency Provider Emergency Medicine; PCP Family Medicine
DX: R10.9 Unspecified abdominal pain (principal); I13.0 Hypertensive heart and chronic kidney disease with heart failure and stage 1 through stage 4 chronic kidney disease, or unspecified chronic kidney disease; I50.42 Chronic combined systolic (congestive) and diastolic (congestive) heart failure; N18.32 Chronic kidney disease, stage 3b; I25.10 Atherosclerotic heart disease of native coronary artery without angina pectoris; I48.0 Paroxysmal atrial fibrillation; I25.5 Ischemic cardiomyopathy; K21.9 Gastro-esophageal reflux disease without esophagitis; E78.5 Hyperlipidemia, unspecified; E03.9 Hypothyroidism, unspecified; G25.81 Restless legs syndrome; G47.33 Obstructive sleep apnea (adult) (pediatric); K62.6 Ulcer of anus and rectum; F41.8 Other specified anxiety disorders; Z98.42 Cataract extraction status, left eye; Z98.41 Cataract extraction status, right eye; Z96.643 Presence of artificial hip joint, bilateral; Z96.653 Presence of artificial knee joint, bilateral; R94.31 Abnormal electrocardiogram [ECG] [EKG]; I51.7 Cardiomegaly
CPT/HCPCS: 36415; 71046; 80053; 81001; 83690; 84484; 85025; 87077; 87086; 87186; 93005; 96374; 99284; A9270; C9113

== ENCOUNTER 2021-05-17 11:11 | Emergency (ER) | payer MEDICARE, SELFPAY ==
--- NOTE | ~2021-05-17 | XR_ITS ---
EXAMINATION: XR chest 2V DATE: 05/17/2021 11:34 INDICATION: Left-sided chest pain TECHNIQUE: PA and lateral views of the chest are obtained. COMPARISON: 05/17/2021 FINDINGS: The lungs are free of acute opacities. There is no pleural effusion or pneumothorax. Cardio megaly is noted. There is a coronary artery stent. There is severe thoracic spondylosis. A calcified loose body is noted in the right glenohumeral joint. Surgical clips in the right upper quadrant are l ikely from prior cholecystectomy. IMPRESSION: 1. Cardiomegaly. Reviewed, dictated and finalized at location B. IMPRESSION: 1. Cardiomegaly.
--- NOTE | 2021-05-17 11:15 | ECG_ITS ---
Measurements Intervals [place] Rate: 88 P: 69 LA: 157 QRS: -70 QRSD: 94 T: 69 QT: 299 QTc: 362 Interpretive Statements SINUS RHYTHM LEFT AXIS DEVIATION ANTEROSEPTAL INFARCT, AGE INDETERMINATE INFERIOR INFARCT, AGE INDETERMINATE BASELINE ARTIFACT- I, II, AVR ABNORMAL ECG Electronically Signed On 05-17-2021 12:22:56 CDT by Marlon Joe D.O.
[2021-05-17 11:25] VITALS: BP 159/96; PULSE 88; RESP 16; TEMP 36.7; O2SAT 96
[2021-05-17 11:39] LABS: Basophils Percent Auto 0.8 % (0.2-1.2); Eosinophils Absolute Auto 0.1 K/mm3 (0-0.3); Eosinophils Percent Auto 1.6 % (0-4.4); Hematocrit 30.2 % (37.0-47.0); Hemoglobin 9.9 g/dL (12.0-15.0); Immature Granulocyte Absolute 0.04 K/mm3 (0.00-0.031); Immature Granulocyte Percent A 0.8 % (0-0.5); Lymphocytes Absolute Auto 1.18 K/mm3 (0.9-3.2); Lymphocytes Percent Auto 22.9 % (18.3-44.2); Mean Corpuscular HGB Conc 32.8 g/dl (32-36); Mean Corpuscular Hemoglobin 31.4 pg (26-34); Mean Corpuscular Volume 95.9 fl (80-100); Mean Platelet Volume 10.3 fl (7.4-10.4); Monocytes Absolute Auto 0.5 K/mm3 (0.1-0.6); Monocytes Percent Auto 8.9 % (2.6-8.5); Neutrophils Absolute Auto 3.4 K/mm3 (1.3-6.7); Platelet Count Result 216 k/mm3 (150-375); Red Blood Count 3.15 M/mm3 (4.2-5.4); Red Cell Distribution Width 13.6 % (11.5-14.5); White Blood Count 5.2 K/mm3 (4.5-10.0)
[2021-05-17 11:50] LABS: Anion Gap 10 mmol/L (8-16); Blood Urea Nitrogen 15 mg/dL (7-17); Calcium 9.4 mg/dL (8.4-10.2); Carbon Dioxide 25 mmol/L (22-30); Chloride 102 mmol/L (98-107); Estimated CRCL calculation 20 ml/min; Estimated Glomerular Filt Rate 31; Glucose 84 mg/dL (65-110); Potassium 3.4 mmol/L (3.4-5.0); Sodium 137 mmol/L (137-145)
[2021-05-17 11:57] LABS: INR 0.9; Prothrombin Time 12.1 Seconds (11.1-14.7)
[2021-05-17 11:58] LABS: Partial Thromboplastin Time 29.6 SECONDS (22.3-36.8)
[2021-05-17 12:02] LABS: Troponin I < 0.012 ng/mL (0.000-0.034)
--- NOTE | 2021-05-17 12:05 | PC.NURSE ---
pt waiting in er vestibule - refuses to wait in WR. explained to her that it is too hot to wait in the ER vestibule.
--- NOTE | 2021-05-17 12:35 | PC.NURSE ---
pt picked up by .
--- NOTE | 2021-05-17 12:55 | PC.NURSE ---
pt arrives back to ER via W/C states Dr Aj office would not see her and here to be seen again. Pt decided to go on home with .
== END 2021-05-17 12:55 | disposition left against medical advice (07) ==
PROVIDERS: Emergency Provider Emergency Medicine; PCP Family Medicine
DX: R07.9 Chest pain, unspecified (principal)
CPT/HCPCS: 36415; 71046; 80048; 84484; 85025; 85610; 85730; 93005; 99199

== ENCOUNTER 2021-05-19 17:17 | Emergency (ER) | payer MEDICARE, SELFPAY ==
[2021-05-19 18:06] VITALS: BP 131/102; PULSE 85; RESP 18; TEMP 36.6; O2SAT 100
[2021-05-19 18:25] LABS: Basophils Percent Auto 0.7 % (0.2-1.2); Eosinophils Absolute Auto 0.1 K/mm3 (0-0.3); Eosinophils Percent Auto 1.8 % (0-4.4); Hematocrit 31.2 % (37.0-47.0); Immature Granulocyte Absolute 0.07 K/mm3 (0.00-0.031); Immature Granulocyte Percent A 1.1 % (0-0.5); Lymphocytes Absolute Auto 1.29 K/mm3 (0.9-3.2); Mean Corpuscular HGB Conc 32.1 g/dl (32-36); Mean Corpuscular Hemoglobin 31.5 pg (26-34); Mean Corpuscular Volume 98.4 fl (80-100); Mean Platelet Volume 10.5 fl (7.4-10.4); Monocytes Absolute Auto 0.6 K/mm3 (0.1-0.6); Monocytes Percent Auto 9.4 % (2.6-8.5); Neutrophils Absolute Auto 4.1 K/mm3 (1.3-6.7); Platelet Count Result 197 k/mm3 (150-375); Red Blood Count 3.17 M/mm3 (4.2-5.4); Red Cell Distribution Width 13.5 % (11.5-14.5); White Blood Count 6.1 K/mm3 (4.5-10.0)
[2021-05-19 18:34] LABS: Alanine Aminotransferase 35 U/L (4-35); Albumin Level 4.3 g/dL (3.5-5.1); Alkaline Phosphatase 92 U/L (38-126); Anion Gap 9 mmol/L (8-16); Aspartate Amino Transferase 59 U/L (14-36); Bilirubin,Total 0.5 mg/dL (0.2-1.3); Blood Urea Nitrogen 17 mg/dL (7-17); Calcium 9.5 mg/dL (8.4-10.2); Carbon Dioxide 26 mmol/L (22-30); Chloride 101 mmol/L (98-107); Estimated Glomerular Filt Rate 27; Glucose 95 mg/dL (65-110); Lipase 276 U/L (23-300); Potassium 3.5 mmol/L (3.4-5.0); Sodium 136 mmol/L (137-145)
--- NOTE | 2021-05-19 19:10 | PC.NURSE ---
Pt to desk stating that her is on the way to pick her up and that she cant stay. Pt advised that she is welcome to check in at anytime for her symptoms. IV removed that was placed by EMS
== END 2021-05-19 19:10 | disposition left against medical advice (07) ==
PROVIDERS: Emergency Provider Emergency Medicine
DX: R10.9 Unspecified abdominal pain (principal)
CPT/HCPCS: 36415; 80053; 83690; 85025; 99199

== ENCOUNTER 2021-05-21 10:57 | Emergency (ER) | payer MEDICARE, SELFPAY ==
[2021-05-21 10:52] VITALS: BP 149/109; PULSE 90; RESP 18; TEMP 36.2; O2SAT 96
[2021-05-21 11:33] VITALS: BP 135/96; PULSE 81; RESP 12; O2SAT 97
[2021-05-21] MEDS: LIDOCAINE HCL 2% VISC SOLN 15 ML UDC 20 ML PO (13:22)
[2021-05-21] MEDS: MAG HYDROX/AL HYDROX/SIMETH 30 ML UDC PO (13:22)
[2021-05-21] MEDS: SODIUM CHLORIDE 0.9% IV 500 ML 999 ML IV CONT (13:27)
[2021-05-21 13:35] LABS: Basophils Percent Auto 0.5 % (0.2-1.2); Eosinophils Absolute Auto 0.1 K/mm3 (0-0.3); Eosinophils Percent Auto 1.5 % (0-4.4); Hematocrit 31.4 % (37.0-47.0); Hemoglobin 10.1 g/dL (12.0-15.0); Immature Granulocyte Absolute 0.05 K/mm3 (0.00-0.031); Immature Granulocyte Percent A 0.7 % (0-0.5); Mean Corpuscular HGB Conc 32.2 g/dl (32-36); Mean Corpuscular Hemoglobin 31.6 pg (26-34); Mean Corpuscular Volume 98.1 fl (80-100); Mean Platelet Volume 11.2 fl (7.4-10.4); Monocytes Absolute Auto 0.7 K/mm3 (0.1-0.6); Neutrophils Absolute Auto 5.1 K/mm3 (1.3-6.7); Neutrophils Percent Auto 69.3 % (45.5-73.1); Platelet Count Result 230 k/mm3 (150-375); Red Cell Distribution Width 13.5 % (11.5-14.5); White Blood Count 7.4 K/mm3 (4.5-10.0)
[2021-05-21 13:40] VITALS: BP 163/101; PULSE 75; RESP 16; O2SAT 97
[2021-05-21 14:30] VITALS: BP 173/115; PULSE 68; RESP 18; O2SAT 98
[2021-05-21 14:46] LABS: Alanine Aminotransferase 28 U/L (4-35); Albumin Level 3.8 g/dL (3.5-5.1); Alkaline Phosphatase 62 U/L (38-126); Anion Gap 6 mmol/L (8-16); Aspartate Amino Transferase 49 U/L (14-36); Bilirubin,Total 0.6 mg/dL (0.2-1.3); Blood Urea Nitrogen 13 mg/dL (7-17); Calcium 8.6 mg/dL (8.4-10.2); Carbon Dioxide 29 mmol/L (22-30); Chloride 101 mmol/L (98-107); Estimated CRCL calculation 21 ml/min; Estimated Glomerular Filt Rate 33; Glucose 81 mg/dL (65-110); Sodium 136 mmol/L (137-145)
--- NOTE | 2021-05-21 15:11 | ED.ABDPAIN ---
HPI - Abdominal Pain General Chief Complaint: Abdominal Pain Stated Complaint: abd pain Time Seen by Provider: 05/21/21 12:36 History of Present Illness HPI narrative: Patient presents with epigastric pain. Patient reports longstanding history of epigastric pain for which she has seen a GI specialist has had a scope done and has known esophagitis. Symptoms are similar to all her prior episodes and she is hoping to get some relief. Patient where she been eating and drinking okay pain is a burning sensation starts in epigastric area and radiates up into her chest denies any nausea or vomiting. Related Data Home Medications Medication Instructions Recorded Confirmed clopidogrel 75 mg tablet 75 mg PO DAILY 12/15/20 05/12/21 ferrous sulfate 325 mg (65 mg 325 mg PO DAILY 12/15/20 05/12/21 iron) tablet furosemide 20 mg tablet 20 mg PO QAM 12/15/20 05/12/21 nitroglycerin 0.4 mg sublingual 0.4 mg SUBLINGUAL Q5M PRN 12/15/20 04/29/21 tablet Entresto 1 tablet PO BID 02/10/21 05/12/21 levothyroxine 125 mcg tablet 125 mcg PO DAILY 04/18/21 05/12/21 oxybutynin chloride 10 mg 10 mg PO DAILY 04/18/21 05/12/21 tablet,extended release 24 hr sertraline 25 mg tablet 25 mg PO DAILY 04/18/21 05/12/21 acyclovir 200 mg PO DAILY PRN 04/29/21 05/12/21 cholecalciferol (vitamin D3) 5,000 unit PO DAILY 04/29/21 05/12/21 sacubitril-valsartan [Entresto] 05/13/21 Allergies Allergy/AdvReac Type Severity Reaction Status Date / Time Penicillins Allergy Unknown Rash Verified 05/21/21 10:57 Review of Systems Review of Systems: CONSTITUTIONAL: Denies fever, chills, or sweats. EYES: Denies visual changes, redness, or discharge. ENT: Denies rhinorrhea, congestion, sore throat, or otalgia. CARDIOVASCULAR: Denies chest pain, palpitations, or edema. RESPIRATORY: Denies cough or dyspnea. GASTROINTESTINAL: Denies nausea, vomiting, or diarrhea. GENITOURINARY: Denies dysuria or hematuria. SKIN: Denies rash or itching. MUSCULOSKELETAL: Denies back pain, joint pain, or myalgia. NEUROLOGIC: Denies headache, numbness, dizziness, or weakness. PSYCHIATRIC: Denies anxiety or depression. All systems reviewed & are unremarkable except as noted in HPI and below PMFSH Past Medical History Medical History Acute kidney failure, unspecified Anxiety and depression Chronic anemia Chronic kidney disease, stage 3 Chronic kidney disease, stage 3b Congestive heart failure Systolic and diastolic congestive heart failure Echo 11/27 showed EF 50%. Echo 01/14/2019: EF measured at 39%. September 2018 EF was 25%. Echo 12/02/2019 EF 50-55%. Grade 1 diastolic function. Coronary artery disease With multivessel surgical revascularization with PCI at [place] October 2017. Cardiac catheterization 10/17/2018-mild preserved intra-stent luminal diameter Current use of alf anticoagulation Depression with anxiety Detached retina Right-sided, x2. Frequent headaches GERD (gastroesophageal reflux disease) With history of esophageal stricture requiring dilatation. History of GI bleed History of rectal polyps Hyperlipidemia Hypertension Hypothyroidism TSH in November 2019 was a bit low, with normal T4. Irritable bowel syndrome Ischemic cardiomyopathy Mitral valve prolapse Myasthenia gravis Questionable history of. Obstructive sleep apnea Ocular herpes zoster History of shingles to the left eye, on chronic antiviral therapy. Paroxysmal atrial fibrillation No longer on long-term anticoagulation due to history of falls. Peripheral neuropathy Rectal polyp Restless leg syndrome Shingles Solitary rectal ulcer syndrome Stage III chronic kidney disease Surgical History Surgical History Status post appendectomy Status post bilateral hip replacements Status post bilateral knee replacements Status post breast biopsy Bilateral with benign histology. Status post carpal tunne
[2021-05-21 15:21] VITALS: BP 168/105; PULSE 78; RESP 18; O2SAT 98
== END 2021-05-21 15:23 | disposition home or self-care (01) ==
PROVIDERS: Emergency Provider Emergency Medicine; PCP Family Medicine
DX: K29.50 Unspecified chronic gastritis without bleeding (principal); I13.0 Hypertensive heart and chronic kidney disease with heart failure and stage 1 through stage 4 chronic kidney disease, or unspecified chronic kidney disease; I50.42 Chronic combined systolic (congestive) and diastolic (congestive) heart failure; N18.32 Chronic kidney disease, stage 3b; I25.10 Atherosclerotic heart disease of native coronary artery without angina pectoris; I48.0 Paroxysmal atrial fibrillation; I25.5 Ischemic cardiomyopathy; K21.9 Gastro-esophageal reflux disease without esophagitis; E78.5 Hyperlipidemia, unspecified; E03.9 Hypothyroidism, unspecified; G25.81 Restless legs syndrome; G47.33 Obstructive sleep apnea (adult) (pediatric); K62.6 Ulcer of anus and rectum; F41.8 Other specified anxiety disorders; Z98.42 Cataract extraction status, left eye; Z98.41 Cataract extraction status, right eye; Z96.643 Presence of artificial hip joint, bilateral; Z96.653 Presence of artificial knee joint, bilateral
CPT/HCPCS: 36415; 80053; 85025; 96360; 99283; A9270; J7040

== ENCOUNTER 2021-05-22 09:21 | Emergency (ER) | payer MEDICARE, SELFPAY ==
[2021-05-22 09:31] VITALS: BP 154/93; PULSE 68; RESP 18; TEMP 36.4; O2SAT 97
[2021-05-22 11:16] LABS: Basophils Percent Auto 0.6 % (0.2-1.2); Eosinophils Absolute Auto 0.1 K/mm3 (0-0.3); Eosinophils Percent Auto 1.9 % (0-4.4); Hematocrit 31.7 % (37.0-47.0); Hemoglobin 10.1 g/dL (12.0-15.0); Immature Granulocyte Absolute 0.04 K/mm3 (0.00-0.031); Immature Granulocyte Percent A 0.8 % (0-0.5); Lymphocytes Absolute Auto 1.02 K/mm3 (0.9-3.2); Lymphocytes Percent Auto 19.6 % (18.3-44.2); Mean Corpuscular HGB Conc 31.9 g/dl (32-36); Mean Corpuscular Hemoglobin 31.5 pg (26-34); Mean Corpuscular Volume 98.8 fl (80-100); Monocytes Absolute Auto 0.4 K/mm3 (0.1-0.6); Monocytes Percent Auto 7.5 % (2.6-8.5); Neutrophils Absolute Auto 3.6 K/mm3 (1.3-6.7); Neutrophils Percent Auto 69.6 % (45.5-73.1); Platelet Count Result 216 k/mm3 (150-375); Red Blood Count 3.21 M/mm3 (4.2-5.4); Red Cell Distribution Width 13.3 % (11.5-14.5); White Blood Count 5.2 K/mm3 (4.5-10.0)
[2021-05-22 11:26] LABS: Alanine Aminotransferase 36 U/L (4-35); Albumin Level 4.8 g/dL (3.5-5.1); Alkaline Phosphatase 70 U/L (38-126); Anion Gap 4 mmol/L (8-16); Aspartate Amino Transferase 65 U/L (14-36); Bilirubin,Total 0.7 mg/dL (0.2-1.3); Blood Urea Nitrogen 13 mg/dL (7-17); Calcium 9.5 mg/dL (8.4-10.2); Carbon Dioxide 31 mmol/L (22-30); Chloride 99 mmol/L (98-107); Estimated CRCL calculation 21 ml/min; Estimated Glomerular Filt Rate 33; Glucose 86 mg/dL (65-110); Lipase 150 U/L (23-300); Potassium 3.3 mmol/L (3.4-5.0); Sodium 134 mmol/L (137-145)
[2021-05-22 12:48] VITALS: BP 172/106; PULSE 62; RESP 18; O2SAT 95
--- NOTE | 2021-05-22 12:58 | ECG_ITS ---
Measurements Intervals [place] Rate: 64 P: 63 [place]: 164 QRS: -64 QRSD: 94 T: -41 QT: 421 QTc: 436 Interpretive Statements SINUS RHYTHM LEFT AXIS DEVIATION ANTEROSEPTAL INFARCT, AGE INDETERMINATE BORDERLINE T WAVE ABNORMALITY- INF/LAT LEADS BASELINE ARTIFACT- I, II, AVR, AVL, AVF, V1-V2 ABNORMAL ECG Electronically Signed On 05-22-2021 17:40:55 CDT by Marlon Joe D.O.
[2021-05-22 13:07] LABS: Add Urine Microscopic? YES; Appearance Urine Cloudy (Clear); Bilirubin Urine Negative (Negative); Blood Urine Negative (Negative); Color Urine Amber (Yellow); Glucose Urine UA Negative (Negative); Ketones Urine Negative (Negative); Leukocyte Esterase Ur 3+ LEU/UL (Negative); Nitrate Urine Negative (Negative); Protein Urine 1+ mg/dL (Negative); RBC Urine 0-2 /hpf (0-2); Specific Grav Ur 1.006 (1.001-1.035); Squamous Epithelial Cell Urine Rare /hpf (Few); Urobilinogen Urine Negative mg/dL (<2.0); WBC Urine 0-3 /hpf
--- NOTE | 2021-05-22 13:19 | ED.ABDPAIN ---
HPI - Abdominal Pain General Chief Complaint: Abdominal Pain Stated Complaint: abdominal pain Time Seen by Provider: 05/22/21 12:53 History of Present Illness HPI narrative: Patient with burning and pain. Patient reports she was seen yesterday for the same however today symptoms are worse so she wanted to come back in for evaluation. She denies any short most of breath, lightheadedness, nausea, vomiting or diarrhea. Related Data Home Medications Medication Instructions Recorded Confirmed clopidogrel 75 mg tablet 75 mg PO DAILY 12/15/20 05/12/21 ferrous sulfate 325 mg (65 mg 325 mg PO DAILY 12/15/20 05/12/21 iron) tablet furosemide 20 mg tablet 20 mg PO QAM 12/15/20 05/12/21 nitroglycerin 0.4 mg sublingual 0.4 mg SUBLINGUAL Q5M PRN 12/15/20 04/29/21 tablet Entresto 1 tablet PO BID 02/10/21 05/12/21 levothyroxine 125 mcg tablet 125 mcg PO DAILY 04/18/21 05/12/21 oxybutynin chloride 10 mg 10 mg PO DAILY 04/18/21 05/12/21 tablet,extended release 24 hr sertraline 25 mg tablet 25 mg PO DAILY 04/18/21 05/12/21 acyclovir 200 mg PO DAILY PRN 04/29/21 05/12/21 cholecalciferol (vitamin D3) 5,000 unit PO DAILY 04/29/21 05/12/21 sacubitril-valsartan [Entresto] 05/13/21 Allergies Allergy/AdvReac Type Severity Reaction Status Date / Time Penicillins Allergy Unknown Rash Verified 05/22/21 09:33 Review of Systems Review of Systems: CONSTITUTIONAL: Denies fever, chills, or sweats. EYES: Denies visual changes, redness, or discharge. ENT: Denies rhinorrhea, congestion, sore throat, or otalgia. CARDIOVASCULAR: Denies chest pain, palpitations, or edema. RESPIRATORY: Denies cough or dyspnea. GASTROINTESTINAL: Denies abdominal pain, nausea, vomiting, or diarrhea. GENITOURINARY: Denies dysuria or hematuria. SKIN: Denies rash or itching. MUSCULOSKELETAL: Denies back pain, joint pain, or myalgia. NEUROLOGIC: Denies headache, numbness, dizziness, or weakness. PSYCHIATRIC: Denies anxiety or depression. All systems reviewed & are unremarkable except as noted in HPI and below PMFSH Past Medical History Medical History Acute kidney failure, unspecified Anxiety and depression Chronic anemia Chronic kidney disease, stage 3 Chronic kidney disease, stage 3b Congestive heart failure Systolic and diastolic congestive heart failure Echo 11/27 showed EF 50%. Echo 01/14/2019: EF measured at 39%. September 2018 EF was 25%. Echo 12/02/2019 EF 50-55%. Grade 1 diastolic function. Coronary artery disease With multivessel surgical revascularization with PCI at [place] October 2017. 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 Frequent headaches GERD (gastroesophageal reflux disease) With history of esophageal stricture requiring dilatation. History of GI bleed History of rectal polyps Hyperlipidemia Hypertension Hypothyroidism TSH in November 2019 was a bit low, with normal T4. Irritable bowel syndrome Ischemic cardiomyopathy Mitral valve prolapse Myasthenia gravis Questionable history of. Obstructive sleep apnea Ocular herpes zoster History of shingles to the left eye, on chronic antiviral therapy. Paroxysmal atrial fibrillation No longer on long-term anticoagulation due to history of falls. Peripheral neuropathy Rectal polyp Restless leg syndrome Shingles Solitary rectal ulcer syndrome Stage III chronic kidney disease Surgical History Surgical History Status post appendectomy Status post bilateral hip replacements Status post bilateral knee replacements Status post breast biopsy Bilateral with benign histology. Status post carpal tunnel release Status post cataract extraction Bilateral. Status post cholecystectomy Status post laminectomy Lumbar spine. Status post LASIK surgery Status p
[2021-05-22] MEDS: MAG HYDROX/AL HYDROX/SIMETH 30 ML UDC PO (13:36)
[2021-05-22] MEDS: LIDOCAINE HCL 2% VISC SOLN 15 ML UDC 20 ML PO (13:36)
[2021-05-22] MEDS: FAMOTIDINE 20 MG TABLET PO (14:04)
== END 2021-05-22 15:30 | disposition home or self-care (01) ==
PROVIDERS: Emergency Medicine; Emergency Provider Emergency Medicine; PCP Family Medicine
DX: K29.70 Gastritis, unspecified, without bleeding (principal); I13.0 Hypertensive heart and chronic kidney disease with heart failure and stage 1 through stage 4 chronic kidney disease, or unspecified chronic kidney disease; N18.32 Chronic kidney disease, stage 3b; I50.40 Unspecified combined systolic (congestive) and diastolic (congestive) heart failure; I25.10 Atherosclerotic heart disease of native coronary artery without angina pectoris; E78.5 Hyperlipidemia, unspecified; F32.9 Major depressive disorder, single episode, unspecified; F41.9 Anxiety disorder, unspecified; Z79.01 Long term (current) use of anticoagulants
CPT/HCPCS: 36415; 80053; 81001; 83690; 85025; 93005; 99283; A9270

== ENCOUNTER 2021-05-25 20:35 | Emergency (ER) | payer MEDICARE, SELFPAY ==
--- NOTE | ~2021-05-25 | XR_ITS ---
XR chest 2V DATE: 05/25/2021 21:25 INDICATION: Generalized chest pain radiating to abdomen. History of congestive heart failure, coronar y artery disease TECHNIQUE: PA and lateral views COMPARISON: 05/17/2021 PA and lateral chest FINDINGS: Cardiomegaly. Coronary artery stent. Aortic calcification and unfolding. No hilar or medias tinal enlargement. Bilateral hyperinflation, suggesting COPD. The elderly chest can simulate this appearance. No pulmonary consolidation, pleural effusion, pulmonary vascular congestion or pneumothorax is detect ed. Diffuse osteopenia. Synovial osteochondromatosis of the right shoulder. Osteoarthritic change at both glenohumeral joints . There is scoliosis and degenerative change of the thoracic spine Status post cholecystectomy. IMPRESSION: Collimated, coronary artery stent. No evidence of congestive heart failure Aortic atherosclerosis Bilateral hyperinflation, suggesting COPD Reviewed, dictated and finalized at location A.
--- NOTE | ~2021-05-25 | XR_ITS ---
XR abdomen obstructive series DATE: 05/25/2021 21:24 INDICATION: Abdominal pain, bloating for one day TECHNIQUE: Supine and upright AP views COMPARISON: 05/13/[address] abdomen pelvis FINDINGS: Cardiomegaly. (Please note that there is pericardial effusion demonstrated on 05/13/2021 CT a bdomen pelvis examination.) Coronary artery stent. Status post cholecystectomy There is no evidence of small or large bowel dilatation but there are scattered small bowel air-fluid levels suggesting mild adynamic ileus or enteritis. No intraperitoneal free air. No visceromegaly is evident. Numerous bilateral calcified pelvic phleboliths. Levoscoliosis and severe degenerative disc disease of the lumbar spine. Diffuse osteopenia. Probable bone island of the left iliac bone. Bilateral total hip arthroplasty. IMPRESSION: Cardiomegaly, pericardial effusion Status post cholecystectomy Scattered small bowel air-fluid levels suggesting enteritis or mild adynamic ileus no bowel obstructi on or intraperitoneal free air is evident Reviewed, dictated and finalized at [facility]. Reviewed, dictated and finalized at location A. IMPRESSION: Cardiomegaly, pericardial effusion Status post cholecystectomy Scattered small bowel air-fluid levels suggesting enteritis or mild adynamic il eus no bowel obstruction or intraperitoneal free air is evident
[2021-05-25 20:52] VITALS: BP 153/87; PULSE 69; RESP 18; TEMP 36.4; O2SAT 100
--- NOTE | 2021-05-25 20:56 | ECG_ITS ---
Measurements Intervals [place] Rate: 67 P: 70 CT: 160 QRS: -56 QRSD: 93 T: 15 QT: 408 QTc: 431 Interpretive Statements SINUS RHYTHM LEFT AXIS DEVIATION ANTEROSEPTAL INFARCT, AGE INDETERMINATE BORDERLINE T WAVE ABNORMALITY- INFERIOR LEADS ABNORMAL ECG Electronically Signed On 05-26-2021 6:42:08 CDT by Marlon Joe D.O.
[2021-05-25 21:18] LABS: Basophils Percent Auto 0.4 % (0.2-1.2); Eosinophils Absolute Auto 0.1 K/mm3 (0-0.3); Eosinophils Percent Auto 2.4 % (0-4.4); Hematocrit 29.9 % (37.0-47.0); Hemoglobin 9.3 g/dL (12.0-15.0); Immature Granulocyte Absolute 0.05 K/mm3 (0.00-0.031); Lymphocytes Absolute Auto 1.18 K/mm3 (0.9-3.2); Lymphocytes Percent Auto 23.2 % (18.3-44.2); Mean Corpuscular HGB Conc 31.1 g/dl (32-36); Mean Corpuscular Hemoglobin 31.6 pg (26-34); Mean Corpuscular Volume 101.7 fl (80-100); Monocytes Absolute Auto 0.4 K/mm3 (0.1-0.6); Monocytes Percent Auto 8.3 % (2.6-8.5); Neutrophils Absolute Auto 3.3 K/mm3 (1.3-6.7); Neutrophils Percent Auto 64.7 % (45.5-73.1); Platelet Count Result 170 k/mm3 (150-375); Red Blood Count 2.94 M/mm3 (4.2-5.4); Red Cell Distribution Width 13.4 % (11.5-14.5); White Blood Count 5.1 K/mm3 (4.5-10.0)
[2021-05-25 21:26] LABS: Lipase 244 U/L (23-300)
[2021-05-25 21:27] LABS: Anion Gap 4 mmol/L (8-16); Blood Urea Nitrogen 15 mg/dL (7-17); Calcium 8.6 mg/dL (8.4-10.2); Carbon Dioxide 30 mmol/L (22-30); Chloride 102 mmol/L (98-107); Estimated CRCL calculation 20 ml/min; Estimated Glomerular Filt Rate 31; Glucose 100 mg/dL (65-110); Potassium 3.3 mmol/L (3.4-5.0); Sodium 136 mmol/L (137-145)
[2021-05-25 21:30] LABS: INR 0.9; Prothrombin Time 12.1 Seconds (11.1-14.7)
[2021-05-25 21:31] LABS: Partial Thromboplastin Time 29.7 SECONDS (22.3-36.8)
[2021-05-25 21:39] LABS: Troponin I < 0.012 ng/mL (0.000-0.034)
--- NOTE | 2021-05-25 23:36 | ED.CHESTPAIN ---
HPI - Chest Pain General Chief Complaint: Chest Pain Stated Complaint: abd pain, shortness of breath Time Seen by Provider: 05/25/21 23:20 Source: patient Mode of arrival: ambulatory Limitations: no limitations History of Present Illness HPI narrative: 80-year-old with a history of hypertension, CHF here with complaints of chest pain since she woke up with this since this morning. Patient states that the pain is constant. She denies any shortness of breath, nausea or vomiting. However she states her lower abdomen is bloated. She has been seen in the ER for the same several times in the recent past. MD complaint: chest discomfort Onset (ago): day(s) (1) Timing of current episode: constant and still present Prior episodes: Yes Pain location: substernal, left chest and right chest Pain radiation: none Relieving factors: nothing Exacerbating factors: nothing Related Data Home Medications Medication Instructions Recorded Confirmed clopidogrel 75 mg tablet 75 mg PO DAILY 12/15/20 05/12/21 ferrous sulfate 325 mg (65 mg 325 mg PO DAILY 12/15/20 05/12/21 iron) tablet furosemide 20 mg tablet 20 mg PO QAM 12/15/20 05/12/21 nitroglycerin 0.4 mg sublingual 0.4 mg SUBLINGUAL Q5M PRN 12/15/20 04/29/21 tablet Entresto 1 tablet PO BID 02/10/21 05/12/21 levothyroxine 125 mcg tablet 125 mcg PO DAILY 04/18/21 05/12/21 oxybutynin chloride 10 mg 10 mg PO DAILY 04/18/21 05/12/21 tablet,extended release 24 hr sertraline 25 mg tablet 25 mg PO DAILY 04/18/21 05/12/21 acyclovir 200 mg PO DAILY PRN 04/29/21 05/12/21 cholecalciferol (vitamin D3) 5,000 unit PO DAILY 04/29/21 05/12/21 sacubitril-valsartan [Entresto] 05/13/21 Allergies Allergy/AdvReac Type Severity Reaction Status Date / Time Penicillins Allergy Unknown Rash Verified 05/22/21 09:33 Review of Systems Review of Systems: All systems reviewed & are unremarkable except as noted in HPI and below Constitutional: Constitutional: Reports no additional constitutional complaints Eyes: Eyes: Reports no additional eye complaints ENT: Reports system reviewed and no additional complaints, except as documented Cardiovascular: Cardiovascular: Reports as per HPI Respiratory: Respiratory: Reports no additional respiratory complaints Gastrointestinal: Gastrointestinal: Reports abdominal pain Musculoskeletal: Musculoskeletal: Reports no additional musculoskeletal complaints [facility] Past Medical History Medical History Acute kidney failure, unspecified Anxiety and depression Chronic anemia Chronic kidney disease, stage 3 Chronic kidney disease, stage 3b Congestive heart failure Systolic and diastolic congestive heart failure Echo 11/27 showed EF 50%. Echo 01/14/2019: EF measured at 39%. September 2018 EF was 25%. Echo 12/02/2019 EF 50-55%. Grade 1 diastolic function. Coronary artery disease With multivessel surgical revascularization with PCI at [place] October 2017. 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 Frequent headaches GERD (gastroesophageal reflux disease) With history of esophageal stricture requiring dilatation. History of GI bleed History of rectal polyps Hyperlipidemia Hypertension Hypothyroidism TSH in November 2019 was a bit low, with normal T4. Irritable bowel syndrome Ischemic cardiomyopathy Mitral valve prolapse Myasthenia gravis Questionable history of. Obstructive sleep apnea Ocular herpes zoster History of shingles to the left eye, on chronic antiviral therapy. Paroxysmal atrial fibrillation No longer on long-term anticoagulation due to history of falls. Peripheral neuropathy Rectal polyp Restless leg syndrome Shingles Solitary rectal ulcer syndrome Stage III chronic kidney disease Surgical History Surgical History (Reviewed 05/25/21 @ 23:39 by Zain Malin
[2021-05-25] MEDS: LORazepam (*CRX) 1 MG TABLET PO (23:38)
[2021-05-25 23:40] VITALS: PULSE 68; RESP 15; O2SAT 100
[2021-05-25 23:41] VITALS: PULSE 67
[2021-05-25 23:42] VITALS: BP 164/81; PULSE 68; RESP 18; O2SAT 100
[2021-05-25 23:43] VITALS: O2SAT 100
[2021-05-26 00:13] VITALS: BP 164/87; PULSE 61; RESP 17; O2SAT 99
== END 2021-05-26 00:14 | disposition home or self-care (01) ==
LOC: ANHED 05-26 00:09
PROVIDERS: Emergency Provider Family Medicine; PCP Family Medicine
DX: R07.9 Chest pain, unspecified (principal); F41.8 Other specified anxiety disorders; I13.0 Hypertensive heart and chronic kidney disease with heart failure and stage 1 through stage 4 chronic kidney disease, or unspecified chronic kidney disease; N18.32 Chronic kidney disease, stage 3b; I50.40 Unspecified combined systolic (congestive) and diastolic (congestive) heart failure; D63.1 Anemia in chronic kidney disease; I25.10 Atherosclerotic heart disease of native coronary artery without angina pectoris; E78.5 Hyperlipidemia, unspecified; I48.0 Paroxysmal atrial fibrillation; I25.5 Ischemic cardiomyopathy; K21.9 Gastro-esophageal reflux disease without esophagitis; E03.9 Hypothyroidism, unspecified; G25.81 Restless legs syndrome; G47.33 Obstructive sleep apnea (adult) (pediatric); K62.6 Ulcer of anus and rectum; K58.9 Irritable bowel syndrome, unspecified; Z98.42 Cataract extraction status, left eye; Z98.41 Cataract extraction status, right eye; Z96.643 Presence of artificial hip joint, bilateral; Z96.653 Presence of artificial knee joint, bilateral; R94.31 Abnormal electrocardiogram [ECG] [EKG]; Z95.5 Presence of coronary angioplasty implant and graft; I70.0 Atherosclerosis of aorta; I51.7 Cardiomegaly
CPT/HCPCS: 36415; 71046; 74019; 80048; 83690; 84484; 85025; 85610; 85730; 93005; 99284; A9270

== ENCOUNTER → 2021-05-27 09:51 | Outpatient (CLI) | payer MEDICARE, SELFPAY ==
--- NOTE | ~2021-05-27 | MM_ITS ---
EXAMINATION: MM screening rik BI w tram HISTORY: Screening mammogram TECHNIQUE: Craniocaudal and mediolateral oblique 3-D tomosynthesis images were obtained and synthetic 2-D images were generated. CAD analysis was submitted and interpreted. COMPARISON: 04/27/2020, 04/25/2019, 04/23/2018 BREAST PARENCHYMAL COMPOSITION: There are scattered areas of fibroglandular density. FINDINGS: RIGHT BREAST: There is possible architectural distortion in the posterior third of the lower-outer br east. LEFT BREAST: There is no evidence of suspicious mass, calcification, or architectural distortion to s uggest malignancy. There has been no significant interval change. IMPRESSION: 1. Possible right breast architectural distortion. 2. Additional mammographic views and possible breast ultrasound are recommended. BI-RADS Category 0: Incomplete: Needs additional imaging evaluation. Reviewed, dictated and finalized at location A. IMPRESSION: 1. Possible right breast architectural distortion. 2. Additional mammographic views and possible breast ultrasound are recommended . BI-RADS Category 0: Incomplete: Needs additional imaging evaluation.
== END ==
PROVIDERS: PCP Family Medicine; Visit Provider Family Medicine
DX: Z12.31 Encounter for screening mammogram for malignant neoplasm of breast (principal); R92.8 Other abnormal and inconclusive findings on diagnostic imaging of breast
CPT/HCPCS: 77063; 77067

== ENCOUNTER 2021-06-05 10:12 | Emergency (ER) | payer MEDICARE, SELFPAY ==
--- NOTE | ~2021-06-05 | XR_ITS ---
EXAMINATION: XR chest 2V DATE: 06/05/2021 10:36 INDICATION: Chest pain. Epigastric burning. TECHNIQUE: frontal and lateral views of the chest were obtained. COMPARISON: Chest radiograph dated 05/25/2021 FINDINGS: Hyperexpansion of the lungs with increased retrosternal clear space suggestive but not diagnostic of COPD.. No focal airspace opacities, pulmonary edema, pleural effusion or pneumothorax. Persistent enl arged and somewhat globular silhouette with both cardiomegaly and pericardial effusion evident on deni or CT. Atherosclerotic coronary artery calcifications and coronary artery stenting. Mild thoracic kyp hosis with moderate spondylosis. Bilateral distal clavicle resections. Moderate bilateral glenohumera l osteoarthritis with large loose osteochondral body on the right. IMPRESSION: 1. Hyperexpansion of the lungs suggestive but not diagnostic of COPD. 2. Enlarged cardiac silhouette with both cardiomegaly and pericardial effusion evident on the recent prior CT. Reviewed, dictated and finalized at location A.
[2021-06-05 10:17] VITALS: BP 166/101; PULSE 82; RESP 20; TEMP 36.8; O2SAT 97
--- NOTE | 2021-06-05 10:20 | ED.GENADULT ---
HPI - General Adult General Chief complaint: Unspecified Stated complaint: multiple complaints Time Seen by Provider: 06/05/21 10:20 History of Present Illness HPI narrative: Patient presents with chest pain. Reports a burning sensation from her neck down to her stomach. Burning sensation is constant radiates over her abdomen and chest there are no clear aggravating or alleviating symptoms. Symptoms been present for months seem to be worse over the past couple days. Reports she tried to see her GI doctor but was unable to do so so she came to the ER for evaluation. She denies any fevers, cough, shortness of breath, dizziness. She does report some nausea. Related Data Home Medications Medication Instructions Recorded Confirmed clopidogrel 75 mg tablet 75 mg PO DAILY 12/15/20 05/12/21 ferrous sulfate 325 mg (65 mg 325 mg PO DAILY 12/15/20 05/12/21 iron) tablet furosemide 20 mg tablet 20 mg PO QAM 12/15/20 05/12/21 nitroglycerin 0.4 mg sublingual 0.4 mg SUBLINGUAL Q5M PRN 12/15/20 04/29/21 tablet Entresto 1 tablet PO BID 02/10/21 05/12/21 levothyroxine 125 mcg tablet 125 mcg PO DAILY 04/18/21 05/12/21 oxybutynin chloride 10 mg 10 mg PO DAILY 04/18/21 05/12/21 tablet,extended release 24 hr sertraline 25 mg tablet 25 mg PO DAILY 04/18/21 05/12/21 acyclovir 200 mg PO DAILY PRN 04/29/21 05/12/21 cholecalciferol (vitamin D3) 5,000 unit PO DAILY 04/29/21 05/12/21 sacubitril-valsartan [Entresto] 05/13/21 Allergies Allergy/AdvReac Type Severity Reaction Status Date / Time Penicillins Allergy Unknown Rash Verified 06/05/21 10:20 Review of Systems Review of Systems: CONSTITUTIONAL: Denies fever, chills, or sweats. EYES: Denies visual changes, redness, or discharge. ENT: Denies rhinorrhea, congestion, sore throat, or otalgia. CARDIOVASCULAR: Denies palpitations, or edema. RESPIRATORY: Denies cough or dyspnea. GASTROINTESTINAL: Denies vomiting, or diarrhea. GENITOURINARY: Denies dysuria or hematuria. SKIN: Denies rash or itching. MUSCULOSKELETAL: Denies back pain, joint pain, or myalgia. NEUROLOGIC: Denies headache, numbness, dizziness, or weakness. PSYCHIATRIC: Denies anxiety or depression. [facility] Past Medical History Medical History Acute kidney failure, unspecified Anxiety and depression Chronic anemia Chronic kidney disease, stage 3 Chronic kidney disease, stage 3b Congestive heart failure Systolic and diastolic congestive heart failure Echo 11/27 showed EF 50%. Echo 01/14/2019: EF measured at 39%. September 2018 EF was 25%. Echo 12/02/2019 EF 50-55%. Grade 1 diastolic function. Coronary artery disease With multivessel surgical revascularization with PCI at [place] October 2017. Cardiac catheterization 10/17/2018-mild preserved intra-stent luminal diameter Current use of detention anticoagulation Depression with anxiety Detached retina Right-sided, x2. Frequent headaches GERD (gastroesophageal reflux disease) With history of esophageal stricture requiring dilatation. History of GI bleed History of rectal polyps Hyperlipidemia Hypertension Hypothyroidism TSH in November 2019 was a bit low, with normal T4. Irritable bowel syndrome Ischemic cardiomyopathy Mitral valve prolapse Myasthenia gravis Questionable history of. Obstructive sleep apnea Ocular herpes zoster History of shingles to the left eye, on chronic antiviral therapy. Paroxysmal atrial fibrillation No longer on long-term anticoagulation due to history of falls. Peripheral neuropathy Rectal polyp Restless leg syndrome Shingles Solitary rectal ulcer syndrome Stage III chronic kidney disease Surgical History Surgical History Status post appendectomy Status post bilateral hip replacements Status post bilateral knee replacements Status post breast biopsy Bilateral with benign histology. Status post carpal tunnel release Status post c
[2021-06-05 10:49] LABS: Basophils Percent Auto 0.8 % (0.2-1.2); Eosinophils Absolute Auto 0.1 K/mm3 (0-0.3); Eosinophils Percent Auto 1.5 % (0-4.4); Hemoglobin 9.5 g/dL (12.0-15.0); Immature Granulocyte Absolute 0.03 K/mm3 (0.00-0.031); Immature Granulocyte Percent A 0.6 % (0-0.5); Lymphocytes Absolute Auto 1.11 K/mm3 (0.9-3.2); Lymphocytes Percent Auto 23.3 % (18.3-44.2); Mean Corpuscular HGB Conc 32.8 g/dl (32-36); Mean Corpuscular Volume 97.6 fl (80-100); Mean Platelet Volume 9.4 fl (7.4-10.4); Monocytes Absolute Auto 0.4 K/mm3 (0.1-0.6); Monocytes Percent Auto 8.2 % (2.6-8.5); Neutrophils Absolute Auto 3.1 K/mm3 (1.3-6.7); Neutrophils Percent Auto 65.6 % (45.5-73.1); Platelet Count Result 199 k/mm3 (150-375); Red Blood Count 2.97 M/mm3 (4.2-5.4); Red Cell Distribution Width 13.1 % (11.5-14.5); White Blood Count 4.8 K/mm3 (4.5-10.0)
[2021-06-05 10:59] LABS: Alanine Aminotransferase 33 U/L (4-35); Albumin Level 4.3 g/dL (3.5-5.1); Alkaline Phosphatase 63 U/L (38-126); Anion Gap 7 mmol/L (8-16); Aspartate Amino Transferase 64 U/L (14-36); Bilirubin,Total 0.8 mg/dL (0.2-1.3); Blood Urea Nitrogen 11 mg/dL (7-17); Carbon Dioxide 27 mmol/L (22-30); Chloride 100 mmol/L (98-107); Estimated CRCL calculation 17 ml/min; Estimated Glomerular Filt Rate 25; Glucose 141 mg/dL (65-110); Potassium 2.9 mmol/L (3.4-5.0); Sodium 134 mmol/L (137-145)
[2021-06-05 11:00] VITALS: PULSE 71
[2021-06-05] MEDS: ONDANSETRON INJ 4 MG/2 ML VIAL IV PUSH (11:07)
[2021-06-05] MEDS: MAG HYDROX/AL HYDROX/SIMETH 30 ML UDC PO (11:07)
[2021-06-05] MEDS: LIDOCAINE HCL 2% VISC SOLN 15 ML UDC 20 ML PO (11:07)
[2021-06-05] MEDS: SODIUM CHLORIDE 0.9% IV 500 ML 999 ML IV CONT (11:07)
[2021-06-05 11:11] LABS: Troponin I < 0.012 ng/mL (0.000-0.034)
[2021-06-05] MEDS: FAMOTIDINE 20 MG/2 ML VIAL IV PUSH (11:33)
[2021-06-05 11:39] VITALS: PULSE 69; RESP 14; O2SAT 97
[2021-06-05 11:46] VITALS: PULSE 71; RESP 18; O2SAT 99
[2021-06-05 13:00] VITALS: BP 179/95; PULSE 71; RESP 20; O2SAT 97
[2021-06-05 13:04] LABS: Add Urine Microscopic? YES; Appearance Urine Cloudy (Clear); Bacteria Urine Trace /hpf; Bilirubin Urine Negative (Negative); Blood Urine 3+ (Negative); Glucose Urine UA Negative (Negative); Ketones Urine Negative (Negative); Leukocyte Esterase Ur 3+ LEU/UL (Negative); Mucus Urine Rare /lpf; Nitrate Urine Negative (Negative); Protein Urine 2+ mg/dL (Negative); Squamous Epithelial Cell Urine Many /hpf (Few); Transitional Epi Cells Urine Occasional /hpf (None Seen); Urobilinogen Urine Negative mg/dL (<2.0); WBC Urine >75 /hpf
[2021-06-05 13:09] LABS: Color Urine Light Yellow (Yellow)
== END 2021-06-05 13:00 | disposition home or self-care (01) ==
PROVIDERS: Emergency Provider Emergency Medicine; PCP Family Medicine
DX: K21.00 Gastro-esophageal reflux disease with esophagitis, without bleeding (principal); I13.0 Hypertensive heart and chronic kidney disease with heart failure and stage 1 through stage 4 chronic kidney disease, or unspecified chronic kidney disease; N18.32 Chronic kidney disease, stage 3b; I50.40 Unspecified combined systolic (congestive) and diastolic (congestive) heart failure; D63.1 Anemia in chronic kidney disease; I25.10 Atherosclerotic heart disease of native coronary artery without angina pectoris; E78.5 Hyperlipidemia, unspecified; I48.0 Paroxysmal atrial fibrillation; I25.5 Ischemic cardiomyopathy; E03.9 Hypothyroidism, unspecified; G25.81 Restless legs syndrome; G47.33 Obstructive sleep apnea (adult) (pediatric); K62.6 Ulcer of anus and rectum; K58.9 Irritable bowel syndrome, unspecified; F41.8 Other specified anxiety disorders; Z98.42 Cataract extraction status, left eye; Z98.41 Cataract extraction status, right eye; Z96.643 Presence of artificial hip joint, bilateral; Z96.653 Presence of artificial knee joint, bilateral; Z95.5 Presence of coronary angioplasty implant and graft; R91.8 Other nonspecific abnormal finding of lung field; I51.7 Cardiomegaly; I31.3 Pericardial effusion (noninflammatory); R82.998 Other abnormal findings in urine
CPT/HCPCS: 36415; 71046; 80053; 81001; 84484; 85025; 87077; 87086; 87088; 87186; 96361; 96374; 96375; 99284; A9270; J2405; J7040

== ENCOUNTER 2021-06-06 08:10 | Emergency (ER) | payer MEDICARE, SELFPAY ==
--- NOTE | ~2021-06-06 | XR_ITS ---
EXAMINATION: XR chest 1V portable EXAM DATE: 06/06/2021 09:19 INDICATION: Centralized chest pain. CHF. TECHNIQUE: Portable AP frontal chest x-ray was obtained. Comparison is made to prior examination from 06/05/2021. FINDINGS: Cardiac silhouette is enlarged but stable in size compared to prior exam. No confluent cons olidation, pneumothorax or pleural effusion suspected. There are bony degenerative changes. There is aortic arteriosclerosis. IMPRESSION: 1. Cardiomegaly unchanged. Reviewed, dictated and finalized at location B. IMPRESSION: 1. Cardiomegaly unchanged.
[2021-06-06 08:11] VITALS: BP 147/83; PULSE 81; RESP 20; TEMP 36.8; O2SAT 97
--- NOTE | 2021-06-06 08:53 | ECG_ITS ---
Measurements Intervals [place] Rate: 74 P: 53 VA: 159 QRS: -40 QRSD: 100 T: 105 QT: 366 QTc: 407 Interpretive Statements SINUS RHYTHM FREQUENT VENTRICULAR PREMATURE COMPLEXES LEFT AXIS DEVIATION ANTEROSEPTAL INFARCT, AGE INDETERMINATE BASELINE ARTIFACT- I, II, III, AVR, AVL, AVF, , V3-V6 ABNORMAL ECG Electronically Signed On 06-06-2021 8:57:40 CDT by Marlon Joe D.O.
[2021-06-06] MEDS: SODIUM CHLORIDE 0.9% IV 1,000 ML 999 ML IV CONT (09:15)
[2021-06-06] MEDS: METOCLOPRAMIDE HCL INJ 10 MG/2 ML VIAL IV PUSH (09:16)
[2021-06-06] MEDS: diphenhydrAMINE HCl INJ 50 MG/ML VIAL 25 MG IV PUSH (09:17)
[2021-06-06] MEDS: POTASSIUM CHLORIDE 20 MEQ TABLET 40 MEQ PO (09:18)
[2021-06-06] MEDS: LORazepam INJ (*CRX) 2 MG/ML VIAL 1 MG IV PUSH (09:18)
[2021-06-06 09:21] LABS: Basophils Percent Auto 0.6 % (0.2-1.2); Eosinophils Percent Auto 0.6 % (0-4.4); Hematocrit 29.1 % (37.0-47.0); Hemoglobin 9.5 g/dL (12.0-15.0); Immature Granulocyte Absolute 0.04 K/mm3 (0.00-0.031); Immature Granulocyte Percent A 0.8 % (0-0.5); Lymphocytes Absolute Auto 0.94 K/mm3 (0.9-3.2); Lymphocytes Percent Auto 18.7 % (18.3-44.2); Mean Corpuscular HGB Conc 32.6 g/dl (32-36); Mean Corpuscular Hemoglobin 31.7 pg (26-34); Monocytes Absolute Auto 0.4 K/mm3 (0.1-0.6); Monocytes Percent Auto 7.8 % (2.6-8.5); Neutrophils Absolute Auto 3.6 K/mm3 (1.3-6.7); Neutrophils Percent Auto 71.5 % (45.5-73.1); Platelet Count Result 213 k/mm3 (150-375); Red Cell Distribution Width 13.1 % (11.5-14.5)
[2021-06-06 09:59] LABS: Alanine Aminotransferase 32 U/L (4-35); Albumin Level 4.4 g/dL (3.5-5.1); Alkaline Phosphatase 66 U/L (38-126); Anion Gap 9 mmol/L (8-16); Aspartate Amino Transferase 63 U/L (14-36); Bilirubin,Total 0.6 mg/dL (0.2-1.3); Blood Urea Nitrogen 14 mg/dL (7-17); Calcium 8.9 mg/dL (8.4-10.2); Carbon Dioxide 26 mmol/L (22-30); Chloride 101 mmol/L (98-107); Estimated CRCL calculation 18 ml/min; Estimated Glomerular Filt Rate 27; Glucose 117 mg/dL (65-110); Lipase 301 U/L (23-300); Sodium 136 mmol/L (137-145)
[2021-06-06 10:09] LABS: Troponin I < 0.012 ng/mL (0.000-0.034)
[2021-06-06 11:38] VITALS: BP 185/112; PULSE 82; RESP 19; O2SAT 100
--- NOTE | 2021-06-06 13:47 | ED.GENADULT ---
HPI - General Adult General Chief complaint: Abdominal Pain Stated complaint: stomach burning Time Seen by Provider: 06/06/21 08:51 Source: patient and family Limitations: clinical condition History of Present Illness HPI narrative: Patient presents with esophageal and gastric burning sensation, intermittent, for months. Patient is known to us, frequent and numerous ED visits for the same symptoms without a specific diagnosis. Last visit was few hours ago with negative work-up. Related Data Home Medications Medication Instructions Recorded Confirmed clopidogrel 75 mg tablet 75 mg PO DAILY 12/15/20 05/12/21 ferrous sulfate 325 mg (65 mg 325 mg PO DAILY 12/15/20 05/12/21 iron) tablet furosemide 20 mg tablet 20 mg PO QAM 12/15/20 05/12/21 nitroglycerin 0.4 mg sublingual 0.4 mg SUBLINGUAL Q5M PRN 12/15/20 04/29/21 tablet Entresto 1 tablet PO BID 02/10/21 05/12/21 levothyroxine 125 mcg tablet 125 mcg PO DAILY 04/18/21 05/12/21 oxybutynin chloride 10 mg 10 mg PO DAILY 04/18/21 05/12/21 tablet,extended release 24 hr sertraline 25 mg tablet 25 mg PO DAILY 04/18/21 05/12/21 acyclovir 200 mg PO DAILY PRN 04/29/21 05/12/21 cholecalciferol (vitamin D3) 5,000 unit PO DAILY 04/29/21 05/12/21 sacubitril-valsartan [Entresto] 05/13/21 Allergies Allergy/AdvReac Type Severity Reaction Status Date / Time Penicillins Allergy Unknown Rash Verified 06/06/21 08:54 Review of Systems Review of Systems: CONSTITUTIONAL: Denies fever, chills, or sweats. EYES: Denies visual changes, redness, or discharge. ENT: Denies rhinorrhea, congestion, sore throat, or otalgia. CARDIOVASCULAR: Denies chest pain, palpitations, or edema. RESPIRATORY: Denies cough or dyspnea. GASTROINTESTINAL: Denies abdominal pain, nausea, vomiting, or diarrhea. GENITOURINARY: Denies dysuria or hematuria. SKIN: Denies rash or itching. MUSCULOSKELETAL: Denies back pain, joint pain, or myalgia. NEUROLOGIC: Denies headache, numbness, or weakness. PSYCHIATRIC: Denies anxiety or depression. PMFSH Past Medical History Medical History Acute kidney failure, unspecified Anxiety and depression Chronic anemia Chronic kidney disease, stage 3 Chronic kidney disease, stage 3b Congestive heart failure Systolic and diastolic congestive heart failure Echo 11/27 showed EF 50%. Echo 01/14/2019: EF measured at 39%. September 2018 EF was 25%. Echo 12/02/2019 EF 50-55%. Grade 1 diastolic function. Coronary artery disease With multivessel surgical revascularization with PCI at [place] October 2017. 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 Frequent headaches GERD (gastroesophageal reflux disease) With history of esophageal stricture requiring dilatation. History of GI bleed History of rectal polyps Hyperlipidemia Hypertension Hypothyroidism TSH in November 2019 was a bit low, with normal T4. Irritable bowel syndrome Ischemic cardiomyopathy Mitral valve prolapse Myasthenia gravis Questionable history of. Obstructive sleep apnea Ocular herpes zoster History of shingles to the left eye, on chronic antiviral therapy. Paroxysmal atrial fibrillation No longer on long-term anticoagulation due to history of falls. Peripheral neuropathy Rectal polyp Restless leg syndrome Shingles Solitary rectal ulcer syndrome Stage III chronic kidney disease Surgical History Surgical History Status post appendectomy Status post bilateral hip replacements Status post bilateral knee replacements Status post breast biopsy Bilateral with benign histology. Status post carpal tunnel release Status post cataract extraction Bilateral. Status post cholecystectomy Status post laminectomy Lumbar spine. Status post LASIK surgery Status post rotator cuff repair St
[2021-06-06 14:16] VITALS: BP 187/111; PULSE 87; RESP 17; O2SAT 100
== END 2021-06-06 14:18 | disposition home or self-care (01) ==
PROVIDERS: Emergency Provider Emergency Medicine; PCP Family Medicine
DX: R10.9 Unspecified abdominal pain (principal); R07.9 Chest pain, unspecified; G89.29 Other chronic pain; E87.6 Hypokalemia; E86.0 Dehydration; I13.0 Hypertensive heart and chronic kidney disease with heart failure and stage 1 through stage 4 chronic kidney disease, or unspecified chronic kidney disease; N18.32 Chronic kidney disease, stage 3b; I50.40 Unspecified combined systolic (congestive) and diastolic (congestive) heart failure; D63.1 Anemia in chronic kidney disease; I25.10 Atherosclerotic heart disease of native coronary artery without angina pectoris; E78.5 Hyperlipidemia, unspecified; I48.0 Paroxysmal atrial fibrillation; I25.5 Ischemic cardiomyopathy; E03.9 Hypothyroidism, unspecified; G25.81 Restless legs syndrome; G47.33 Obstructive sleep apnea (adult) (pediatric); K62.6 Ulcer of anus and rectum; K58.9 Irritable bowel syndrome, unspecified; K21.9 Gastro-esophageal reflux disease without esophagitis; F41.8 Other specified anxiety disorders; Z98.42 Cataract extraction status, left eye; Z98.41 Cataract extraction status, right eye; Z96.643 Presence of artificial hip joint, bilateral; Z96.653 Presence of artificial knee joint, bilateral; Z95.5 Presence of coronary angioplasty implant and graft
CPT/HCPCS: 36415; 71045; 80053; 83690; 84484; 85025; 93005; 96361; 96374; 96375; 99284; A9270; J1200; J2060; J2765; J7030

== ENCOUNTER 2021-06-09 03:42 | Emergency (ER) | payer MEDICARE, SELFPAY ==
[2021-06-09] VITALS (9 sets, daily range): BP systolic 137–153; BP diastolic 84–103; PULSE 68–96; RESP 13–20; TEMP 35.9; O2SAT 91–95
--- NOTE | ~2021-06-09 | XR_ITS ---
EXAMINATION: XR chest 2V DATE: 06/09/2021 04:19 INDICATION: Chest pain TECHNIQUE: AP and lateral views of the chest are obtained. COMPARISON: 06/06/2021 FINDINGS: There is stable cardiomegaly. Coronary artery stents are noted. Minimal bibasilar airspace opacities likely reflect atelectasis. There is no pleural effusion or pneumothorax. There is severe t horacic spondylosis. A calcified loose body is noted in the right shoulder. IMPRESSION: 1. Stable cardiomegaly. Reviewed, dictated and finalized at location A. IMPRESSION: 1. Stable cardiomegaly.
--- NOTE | 2021-06-09 03:45 | ECG_ITS ---
Measurements Intervals [place] Rate: 78 P: 43 DE: 150 QRS: -44 QRSD: 98 T: 180 QT: 437 QTc: 500 Interpretive Statements SINUS RHYTHM VENTRICULAR PREMATURE COMPLEXES LEFT AXIS DEVIATION ANTEROSEPTAL INFARCT, AGE INDETERMINATE BORDERLINE T WAVE ABNORMALITY- INFERIOR LEADS BASELINE ARTIFACT- I, II, AVR, AVF, V3-V6 ABNORMAL ECG Electronically Signed On 06-09-2021 8:15:44 CDT by Marlon Joe D.O.
[2021-06-09] MEDS: BELLADONNA ALK/PHENOB ELIX 10 ML, MAG HYDROX/ALUMINUM HYD/SIMETH 30 ML, LIDOCAINE HCL 2... PO (04:18)
[2021-06-09 04:38] LABS: Basophils Percent Auto 0.7 % (0.2-1.2); Eosinophils Absolute Auto 0.1 K/mm3 (0-0.3); Eosinophils Percent Auto 2.5 % (0-4.4); Hematocrit 31.9 % (37.0-47.0); Hemoglobin 10.3 g/dL (12.0-15.0); Immature Granulocyte Absolute 0.04 K/mm3 (0.00-0.031); Immature Granulocyte Percent A 0.9 % (0-0.5); Lymphocytes Absolute Auto 1.09 K/mm3 (0.9-3.2); Lymphocytes Percent Auto 24.5 % (18.3-44.2); Mean Corpuscular HGB Conc 32.3 g/dl (32-36); Mean Corpuscular Hemoglobin 31.9 pg (26-34); Mean Corpuscular Volume 98.8 fl (80-100); Mean Platelet Volume 9.5 fl (7.4-10.4); Monocytes Absolute Auto 0.4 K/mm3 (0.1-0.6); Monocytes Percent Auto 7.9 % (2.6-8.5); Neutrophils Absolute Auto 2.8 K/mm3 (1.3-6.7); Neutrophils Percent Auto 63.5 % (45.5-73.1); Platelet Count Result 221 k/mm3 (150-375); Red Blood Count 3.23 M/mm3 (4.2-5.4); Red Cell Distribution Width 13.1 % (11.5-14.5); White Blood Count 4.5 K/mm3 (4.5-10.0)
[2021-06-09 04:54] LABS: Anion Gap 8 mmol/L (8-16); Blood Urea Nitrogen 13 mg/dL (7-17); Calcium 8.8 mg/dL (8.4-10.2); Carbon Dioxide 30 mmol/L (22-30); Chloride 96 mmol/L (98-107); Estimated CRCL calculation 18 ml/min; Estimated Glomerular Filt Rate 24; Glucose 101 mg/dL (65-110); Potassium 3.1 mmol/L (3.4-5.0); Sodium 134 mmol/L (137-145)
[2021-06-09 05:06] LABS: Troponin I < 0.012 ng/mL (0.000-0.034)
--- NOTE | 2021-06-09 05:46 | ED.GENADULT ---
HPI - General Adult General Chief complaint: Chest Pain Stated complaint: cp Time Seen by Provider: 06/09/21 03:46 History of Present Illness HPI narrative: Patient is an 81-year-old female who presents ER with chest pain. Ongoing for 3 hours. Central and radiates down into her abdomen. Is burning. It feels like a reflux she has typically. No nausea or vomiting. She tried Mylanta without improvement. Has these symptoms regularly. Recently had an EGD that showed a well-healed esophagus. Related Data Home Medications Medication Instructions Recorded Confirmed clopidogrel 75 mg tablet 75 mg PO DAILY 12/15/20 05/12/21 ferrous sulfate 325 mg (65 mg 325 mg PO DAILY 12/15/20 05/12/21 iron) tablet furosemide 20 mg tablet 20 mg PO QAM 12/15/20 05/12/21 nitroglycerin 0.4 mg sublingual 0.4 mg SUBLINGUAL Q5M PRN 12/15/20 04/29/21 tablet Entresto 1 tablet PO BID 02/10/21 05/12/21 levothyroxine 125 mcg tablet 125 mcg PO DAILY 04/18/21 05/12/21 oxybutynin chloride 10 mg 10 mg PO DAILY 04/18/21 05/12/21 tablet,extended release 24 hr sertraline 25 mg tablet 25 mg PO DAILY 04/18/21 05/12/21 acyclovir 200 mg PO DAILY PRN 04/29/21 05/12/21 cholecalciferol (vitamin D3) 5,000 unit PO DAILY 04/29/21 05/12/21 sacubitril-valsartan [Entresto] 05/13/21 hydralazine 06/09/21 metoprolol succinate PO 06/09/21 prednisolone acetate drp 06/09/21 trazodone 06/09/21 Allergies Allergy/AdvReac Type Severity Reaction Status Date / Time Penicillins Allergy Unknown Rash Verified 06/09/21 03:58 Review of Systems Review of Systems: All systems reviewed & are unremarkable except as noted in HPI and below Constitutional: Constitutional: Denies chills and Denies fever(s) ENT: Denies nasal congestion and Denies sore throat Cardiovascular: Cardiovascular: Reports chest pain, Denies rapid heart rate and Denies radiating jaw, neck or arm pain Respiratory: Respiratory: Denies cough and Denies dyspnea Gastrointestinal: Gastrointestinal: Denies abdominal pain, Reports heartburn, Denies nausea and Denies vomiting PMF Past Medical History Medical History Acute kidney failure, unspecified Anxiety and depression Chronic anemia Chronic kidney disease, stage 3 Chronic kidney disease, stage 3b Congestive heart failure Systolic and diastolic congestive heart failure Echo 11/27 showed EF 50%. Echo 01/14/2019: EF measured at 39%. September 2018 EF was 25%. Echo 12/02/2019 EF 50-55%. Grade 1 diastolic function. Coronary artery disease With multivessel surgical revascularization with PCI at [place] October 2017. Cardiac catheterization 10/17/2018-mild preserved intra-stent luminal diameter Current use of fpc anticoagulation Depression with anxiety Detached retina Right-sided, x2. Frequent headaches GERD (gastroesophageal reflux disease) With history of esophageal stricture requiring dilatation. History of GI bleed History of rectal polyps Hyperlipidemia Hypertension Hypothyroidism TSH in November 2019 was a bit low, with normal T4. Irritable bowel syndrome Ischemic cardiomyopathy Mitral valve prolapse Myasthenia gravis Questionable history of. Obstructive sleep apnea Ocular herpes zoster History of shingles to the left eye, on chronic antiviral therapy. Paroxysmal atrial fibrillation No longer on long-term anticoagulation due to history of falls. Peripheral neuropathy Rectal polyp Restless leg syndrome Shingles Solitary rectal ulcer syndrome Stage III chronic kidney disease Surgical History Surgical History Status post appendectomy Status post bilateral hip replacements Status post bilateral knee replacements Status post breast biopsy Bilateral with benign histology. Status post carpal tunnel release Status post cataract extraction Bilateral. Status post cholecystectomy Status post laminectomy Lumbar spine. Status p
== END 2021-06-09 06:06 | disposition home or self-care (01) ==
PROVIDERS: Emergency Provider Emergency Medicine; PCP Family Medicine
DX: K21.9 Gastro-esophageal reflux disease without esophagitis (principal); I13.0 Hypertensive heart and chronic kidney disease with heart failure and stage 1 through stage 4 chronic kidney disease, or unspecified chronic kidney disease; N18.32 Chronic kidney disease, stage 3b; I50.40 Unspecified combined systolic (congestive) and diastolic (congestive) heart failure; D63.1 Anemia in chronic kidney disease; I25.10 Atherosclerotic heart disease of native coronary artery without angina pectoris; E78.5 Hyperlipidemia, unspecified; I48.0 Paroxysmal atrial fibrillation; I25.5 Ischemic cardiomyopathy; E03.9 Hypothyroidism, unspecified; G25.81 Restless legs syndrome; G47.33 Obstructive sleep apnea (adult) (pediatric); K58.9 Irritable bowel syndrome, unspecified; F41.8 Other specified anxiety disorders; K62.6 Ulcer of anus and rectum; G62.9 Polyneuropathy, unspecified; Z98.42 Cataract extraction status, left eye; Z98.41 Cataract extraction status, right eye; Z96.643 Presence of artificial hip joint, bilateral; Z96.653 Presence of artificial knee joint, bilateral; Z95.5 Presence of coronary angioplasty implant and graft; I49.3 Ventricular premature depolarization; R94.31 Abnormal electrocardiogram [ECG] [EKG]; I51.7 Cardiomegaly
CPT/HCPCS: 36415; 71046; 80048; 84484; 85025; 93005; 99284; A9270

== ENCOUNTER 2021-06-14 02:42 | Emergency (ER) | payer MEDICARE, SELFPAY ==
[2021-06-14] VITALS (26 sets, daily range): BP systolic 156–194; BP diastolic 96–128; PULSE 63–106; RESP 10–29; TEMP 36.1; O2SAT 92–100
--- NOTE | ~2021-06-14 | XR_ITS ---
EXAMINATION: XR chest 1V portable DATE: 06/14/2021 03:20 INDICATION: Chest pain. TECHNIQUE: A single frontal view of the chest was obtained. COMPARISON: Chest 2 views 06/09/2021, CT abdomen and pelvis 05/13/2021 FINDINGS: Right lateral costophrenic angle is excluded. There is mild atelectasis at left lung base. No pleural effusion or pneumothorax. There is enlargement of the cardiac silhouette. IMPRESSION: 1. Mild atelectasis at left lung base. 2. Stable enlargement of the cardiac silhouette, likely a combination of cardiomegaly and pericardial effusion as seen on the prior CT. Reviewed, dictated and finalized at location A. IMPRESSION: 1. Mild atelectasis at left lung base. 2. Stable enlargement of the cardiac silhouette, likely a combination of cardio megaly and pericardial effusion as seen on the prior CT.
--- NOTE | 2021-06-14 02:46 | ECG_ITS ---
Measurements Intervals [place] Rate: 67 P: [place]: 0 QRS: -41 QRSD: 98 T: 210 QT: 366 QTc: 386 Interpretive Statements SINUS RHYTHM VENTRICULAR BIGEMINY LEFT AXIS DEVIATION ANTEROSEPTAL INFARCT, AGE INDETERMINATE BORDERLINE T WAVE ABNORMALITY- DIFFUSE LEADS BASELINE ARTIFACT- V2-V5 ABNORMAL ECG Electronically Signed On 06-14-2021 5:26:53 CDT by Marlon Joe D.O.
--- NOTE | 2021-06-14 02:52 | ED.GENADULT ---
HPI - General Adult General Chief complaint: Abdominal Pain Stated complaint: stomach and chest pain x few years Source: RN notes reviewed History of Present Illness HPI narrative: Patient presents emergency department from home for abdominal and chest pain. Patient states that the pain began this evening she states the pain goes from her upper chest down to her pelvis and is described as a burning sensation the pain is consistent with her previous episodes of gastric reflux patient does have a history of chronic abdominal pain she denies any fevers or chills shortness of breath vomiting diarrhea or any other symptoms Related Data Home Medications Medication Instructions Recorded Confirmed clopidogrel 75 mg tablet 75 mg PO DAILY 12/15/20 05/12/21 ferrous sulfate 325 mg (65 mg 325 mg PO DAILY 12/15/20 05/12/21 iron) tablet furosemide 20 mg tablet 20 mg PO QAM 12/15/20 05/12/21 nitroglycerin 0.4 mg sublingual 0.4 mg SUBLINGUAL PRN PRN 12/15/20 04/29/21 tablet Entresto 1 tablet PO BID 02/10/21 05/12/21 levothyroxine 125 mcg tablet 125 mcg PO DAILY 04/18/21 05/12/21 oxybutynin chloride 10 mg 10 mg PO DAILY 04/18/21 05/12/21 tablet,extended release 24 hr sertraline 25 mg tablet 25 mg PO DAILY 04/18/21 05/12/21 acyclovir 200 mg PO DAILY PRN 04/29/21 05/12/21 cholecalciferol (vitamin D3) 5,000 unit PO DAILY 04/29/21 05/12/21 sacubitril-valsartan [Entresto] 05/13/21 hydralazine 06/09/21 metoprolol succinate PO 06/09/21 prednisolone acetate drp 06/09/21 trazodone 06/09/21 Allergies Allergy/AdvReac Type Severity Reaction Status Date / Time Penicillins Allergy Unknown Rash Verified 06/09/21 03:58 Review of Systems Review of Systems: Gen.: Denies fevers or chills ENT: Denies congestion Respiratory: Denies shortness of breath or cough CV: Reports chest pain GI: Reports abdominal pain Musculoskeletal: Denies back pain or muscle pain Neuro: Denies numbness, tingling, weakness or focal weakness Skin: Denies rash Except as documented, all other systems reviewed and negative PMFSH Past Medical History Medical History Acute kidney failure, unspecified Anxiety and depression Chronic anemia Chronic kidney disease, stage 3 Chronic kidney disease, stage 3b Congestive heart failure Systolic and diastolic congestive heart failure Echo 11/27 showed EF 50%. Echo 01/14/2019: EF measured at 39%. September 2018 EF was 25%. Echo 12/02/2019 EF 50-55%. Grade 1 diastolic function. Coronary artery disease With multivessel surgical revascularization with PCI at [place] October 2017. Cardiac catheterization 10/17/2018-mild preserved intra-stent luminal diameter Current use of longterm anticoagulation Depression with anxiety Detached retina Right-sided, x2. Frequent headaches GERD (gastroesophageal reflux disease) With history of esophageal stricture requiring dilatation. History of GI bleed History of rectal polyps Hyperlipidemia Hypertension Hypothyroidism TSH in November 2019 was a bit low, with normal T4. Irritable bowel syndrome Ischemic cardiomyopathy Mitral valve prolapse Myasthenia gravis Questionable history of. Obstructive sleep apnea Ocular herpes zoster History of shingles to the left eye, on chronic antiviral therapy. Paroxysmal atrial fibrillation No longer on long-term anticoagulation due to history of falls. Peripheral neuropathy Rectal polyp Restless leg syndrome Shingles Solitary rectal ulcer syndrome Stage III chronic kidney disease Surgical History Surgical History Status post appendectomy Status post bilateral hip replacements Status post bilateral knee replacements Status post breast biopsy Bilateral with benign histology. Status post carpal tunnel release Status post cataract extraction Bilateral. Status post cholecystectomy Status post laminectomy Lumbar spine. Status post LASIK s
[2021-06-14] MEDS: ASPIRIN 81 MG CHEWABLE TABLET 324 MG PO (03:28)
[2021-06-14 04:00] LABS: Basophils Percent Auto 0.9 % (0.2-1.2); Eosinophils Absolute Auto 0.1 K/mm3 (0-0.3); Eosinophils Percent Auto 1.5 % (0-4.4); Hematocrit 32.5 % (37.0-47.0); Hemoglobin 10.5 g/dL (12.0-15.0); Immature Granulocyte Absolute 0.04 K/mm3 (0.00-0.031); Immature Granulocyte Percent A 0.9 % (0-0.5); Lymphocytes Absolute Auto 1.06 K/mm3 (0.9-3.2); Lymphocytes Percent Auto 22.9 % (18.3-44.2); Mean Corpuscular HGB Conc 32.3 g/dl (32-36); Mean Corpuscular Hemoglobin 31.6 pg (26-34); Mean Corpuscular Volume 97.9 fl (80-100); Monocytes Absolute Auto 0.4 K/mm3 (0.1-0.6); Monocytes Percent Auto 7.6 % (2.6-8.5); Neutrophils Absolute Auto 3.1 K/mm3 (1.3-6.7); Neutrophils Percent Auto 66.2 % (45.5-73.1); Platelet Count Result 189 k/mm3 (150-375); Red Blood Count 3.32 M/mm3 (4.2-5.4); Red Cell Distribution Width 12.9 % (11.5-14.5); White Blood Count 4.6 K/mm3 (4.5-10.0)
[2021-06-14 04:10] LABS: INR 0.9; Prothrombin Time 12.2 Seconds (11.1-14.7)
[2021-06-14 04:11] LABS: Partial Thromboplastin Time 29.7 SECONDS (22.3-36.8)
[2021-06-14 04:13] LABS: Alanine Aminotransferase 34 U/L (4-35); Albumin Level 4.6 g/dL (3.5-5.1); Alkaline Phosphatase 83 U/L (38-126); Anion Gap 8 mmol/L (8-16); Aspartate Amino Transferase 64 U/L (14-36); Bilirubin,Total 0.6 mg/dL (0.2-1.3); Blood Urea Nitrogen 14 mg/dL (7-17); Calcium 9.1 mg/dL (8.4-10.2); Carbon Dioxide 32 mmol/L (22-30); Chloride 96 mmol/L (98-107); Estimated CRCL calculation 18 ml/min; Estimated Glomerular Filt Rate 29; Glucose 96 mg/dL (65-110); Lipase 193 U/L (23-300); Potassium 3.2 mmol/L (3.4-5.0); Sodium 136 mmol/L (137-145)
[2021-06-14 04:24] LABS: Troponin I 0.018 ng/mL (0.000-0.034)
[2021-06-14 07:14] LABS: Troponin I < 0.012 ng/mL (0.000-0.034)
[2021-06-14] MEDS: POTASSIUM CHLORIDE 20 MEQ PACKET (FOR LIQUID) PO (07:28)
== END 2021-06-14 07:30 | disposition home or self-care (01) ==
PROVIDERS: Emergency Provider Emergency Medicine; PCP Family Medicine
DX: R10.13 Epigastric pain (principal); F41.9 Anxiety disorder, unspecified; F32.9 Major depressive disorder, single episode, unspecified; I13.0 Hypertensive heart and chronic kidney disease with heart failure and stage 1 through stage 4 chronic kidney disease, or unspecified chronic kidney disease; N18.32 Chronic kidney disease, stage 3b; I50.40 Unspecified combined systolic (congestive) and diastolic (congestive) heart failure; D64.9 Anemia, unspecified; I25.10 Atherosclerotic heart disease of native coronary artery without angina pectoris; E78.5 Hyperlipidemia, unspecified; G47.30 Sleep apnea, unspecified; E03.9 Hypothyroidism, unspecified; I48.91 Unspecified atrial fibrillation
CPT/HCPCS: 36415; 71045; 80048; 80076; 83690; 84484; 85025; 85610; 85730; 93005; 99284; A9270

== ENCOUNTER 2021-06-16 04:33 | Emergency (ER) | payer MEDICARE, SELFPAY ==
[2021-06-16 05:01] VITALS: BP 158/121; PULSE 72; RESP 18; TEMP 36.4; O2SAT 100
[2021-06-16] MEDS: LIDOCAINE HCL 2% VISC SOLN 15 ML UDC 20 ML PO (05:33)
[2021-06-16] MEDS: MAG HYDROX/AL HYDROX/SIMETH 30 ML UDC PO (05:33)
[2021-06-16 05:38] LABS: Add Urine Microscopic? YES; Appearance Urine Cloudy (Clear); Bilirubin Urine Negative (Negative); Blood Urine Negative (Negative); Color Urine Yellow (Yellow); Glucose Urine UA Negative (Negative); Ketones Urine Negative (Negative); Leukocyte Esterase Ur 2+ LEU/UL (Negative); Mucus Urine Rare /lpf; Nitrate Urine Positive (Negative); Protein Urine 2+ mg/dL (Negative); Specific Grav Ur 1.008 (1.001-1.035); Squamous Epithelial Cell Urine Few /hpf (Few); Urobilinogen Urine Negative mg/dL (<2.0); WBC Urine 31-50 /hpf
[2021-06-16 06:03] LABS: Basophils Percent Auto 0.7 % (0.2-1.2); Eosinophils Absolute Auto 0.1 K/mm3 (0-0.3); Eosinophils Percent Auto 1.6 % (0-4.4); Hematocrit 28.8 % (37.0-47.0); Hemoglobin 9.5 g/dL (12.0-15.0); Immature Granulocyte Absolute 0.03 K/mm3 (0.00-0.031); Immature Granulocyte Percent A 0.7 % (0-0.5); Lymphocytes Absolute Auto 1.01 K/mm3 (0.9-3.2); Lymphocytes Percent Auto 23.4 % (18.3-44.2); Mean Corpuscular Hemoglobin 31.9 pg (26-34); Mean Corpuscular Volume 96.6 fl (80-100); Monocytes Absolute Auto 0.4 K/mm3 (0.1-0.6); Monocytes Percent Auto 8.1 % (2.6-8.5); Neutrophils Absolute Auto 2.8 K/mm3 (1.3-6.7); Neutrophils Percent Auto 65.5 % (45.5-73.1); Platelet Count Result 178 k/mm3 (150-375); Red Blood Count 2.98 M/mm3 (4.2-5.4); Red Cell Distribution Width 12.7 % (11.5-14.5); White Blood Count 4.3 K/mm3 (4.5-10.0)
[2021-06-16 06:16] LABS: Alanine Aminotransferase 31 U/L (4-35); Albumin Level 4.4 g/dL (3.5-5.1); Alkaline Phosphatase 77 U/L (38-126); Anion Gap 6 mmol/L (8-16); Aspartate Amino Transferase 57 U/L (14-36); Bilirubin,Total 0.6 mg/dL (0.2-1.3); Blood Urea Nitrogen 12 mg/dL (7-17); Calcium 9.3 mg/dL (8.4-10.2); Carbon Dioxide 30 mmol/L (22-30); Chloride 96 mmol/L (98-107); Estimated CRCL calculation 22 ml/min; Estimated Glomerular Filt Rate 31; Glucose 78 mg/dL (65-110); Lipase 203 U/L (23-300); Potassium 2.8 mmol/L (3.4-5.0); Sodium 132 mmol/L (137-145)
--- NOTE | 2021-06-16 06:22 | ED.ABDPAIN ---
HPI - Abdominal Pain General Chief Complaint: Abdominal Pain Stated Complaint: chest and stomach pain Time Seen by Provider: 06/16/21 04:59 History of Present Illness HPI narrative: Patient presents abdominal pain and chest pain. Patient reports longstanding history of the same and has been previously diagnosed with GERD. Reports her symptoms are similar to her prior GERD flareups. Her pain is constant describes a burning sensation no clear aggravating or alleviating factors and radiates up into her chest. She denies any nausea or vomiting she denies any cough shortness of breath or fever she denies diarrhea. Patient does report increased urinary frequency and pain with urination Related Data Home Medications Medication Instructions Recorded Confirmed clopidogrel 75 mg tablet 75 mg PO DAILY 12/15/20 05/12/21 ferrous sulfate 325 mg (65 mg 325 mg PO DAILY 12/15/20 05/12/21 iron) tablet furosemide 20 mg tablet 20 mg PO QAM 12/15/20 05/12/21 nitroglycerin 0.4 mg sublingual 0.4 mg SUBLINGUAL PRN PRN 12/15/20 04/29/21 tablet Entresto 1 tablet PO BID 02/10/21 05/12/21 levothyroxine 125 mcg tablet 125 mcg PO DAILY 04/18/21 05/12/21 oxybutynin chloride 10 mg 10 mg PO DAILY 04/18/21 05/12/21 tablet,extended release 24 hr sertraline 25 mg tablet 25 mg PO DAILY 04/18/21 05/12/21 acyclovir 200 mg PO DAILY PRN 04/29/21 05/12/21 cholecalciferol (vitamin D3) 5,000 unit PO DAILY 04/29/21 05/12/21 sacubitril-valsartan [Entresto] 05/13/21 hydralazine 06/09/21 metoprolol succinate PO 06/09/21 prednisolone acetate drp 06/09/21 trazodone 06/09/21 Allergies Allergy/AdvReac Type Severity Reaction Status Date / Time Penicillins Allergy Unknown Rash Verified 06/09/21 03:58 Review of Systems Review of Systems: CONSTITUTIONAL: Denies fever, chills, or sweats. EYES: Denies visual changes, redness, or discharge. ENT: Denies rhinorrhea, congestion, sore throat, or otalgia. CARDIOVASCULAR: Denies palpitations, or edema. RESPIRATORY: Denies cough or dyspnea. GASTROINTESTINAL: Denies nausea, vomiting, or diarrhea. GENITOURINARY: Reports some pain with urination increased urinary frequency SKIN: Denies rash or itching. MUSCULOSKELETAL: Denies back pain, joint pain, or myalgia. NEUROLOGIC: Denies headache, numbness, dizziness, or weakness. PSYCHIATRIC: Denies anxiety or depression. All systems reviewed & are unremarkable except as noted in HPI and below PMFSH Past Medical History Medical History Acute kidney failure, unspecified Anxiety and depression Chronic anemia Chronic kidney disease, stage 3 Chronic kidney disease, stage 3b Congestive heart failure Systolic and diastolic congestive heart failure Echo 11/27 showed EF 50%. Echo 01/14/2019: EF measured at 39%. September 2018 EF was 25%. Echo 12/02/2019 EF 50-55%. Grade 1 diastolic function. Coronary artery disease With multivessel surgical revascularization with PCI at [place] October 2017. Cardiac catheterization 10/17/2018-mild preserved intra-stent luminal diameter Current use of usp anticoagulation Depression with anxiety Detached retina Right-sided, x2. Frequent headaches GERD (gastroesophageal reflux disease) With history of esophageal stricture requiring dilatation. History of GI bleed History of rectal polyps Hyperlipidemia Hypertension Hypothyroidism TSH in November 2019 was a bit low, with normal T4. Irritable bowel syndrome Ischemic cardiomyopathy Mitral valve prolapse Myasthenia gravis Questionable history of. Obstructive sleep apnea Ocular herpes zoster History of shingles to the left eye, on chronic antiviral therapy. Paroxysmal atrial fibrillation No longer on long-term anticoagulation due to history of falls. Peripheral neuropathy Rectal polyp Restless leg syndrome Shingles Solitary rectal ulcer syndrome Stage III chronic kidney disease Surgical History Surgical History (Reviewed
[2021-06-16 06:39] VITALS: PULSE 77; RESP 17; O2SAT 98
--- NOTE | 2021-06-16 07:05 | ECG_ITS ---
Measurements Intervals [place] Rate: 68 P: 146 WV: 156 QRS: -26 QRSD: 101 T: -26 QT: 389 QTc: 416 Interpretive Statements SINUS OR ECTOPIC ATRIAL RHYTHM ANTEROSEPTAL INFARCT, AGE INDETERMINATE BORDERLINE T WAVE ABNORMALITY- DIFFUSE LEADS ABNORMAL ECG Electronically Signed On 06-16-2021 8:26:56 CDT by Marlon Joe D.O.
== END 2021-06-16 07:28 | disposition home or self-care (01) ==
PROVIDERS: Emergency Provider Emergency Medicine; PCP Family Medicine
DX: K29.50 Unspecified chronic gastritis without bleeding (principal); N30.00 Acute cystitis without hematuria; E87.6 Hypokalemia; I13.0 Hypertensive heart and chronic kidney disease with heart failure and stage 1 through stage 4 chronic kidney disease, or unspecified chronic kidney disease; N18.32 Chronic kidney disease, stage 3b; I50.40 Unspecified combined systolic (congestive) and diastolic (congestive) heart failure; D63.1 Anemia in chronic kidney disease; I25.10 Atherosclerotic heart disease of native coronary artery without angina pectoris; E78.5 Hyperlipidemia, unspecified; I48.0 Paroxysmal atrial fibrillation; I25.5 Ischemic cardiomyopathy; E03.9 Hypothyroidism, unspecified; G25.81 Restless legs syndrome; G47.33 Obstructive sleep apnea (adult) (pediatric); K58.9 Irritable bowel syndrome, unspecified; F41.8 Other specified anxiety disorders; K62.6 Ulcer of anus and rectum; G62.9 Polyneuropathy, unspecified; Z98.42 Cataract extraction status, left eye; Z98.41 Cataract extraction status, right eye; Z96.643 Presence of artificial hip joint, bilateral; Z96.653 Presence of artificial knee joint, bilateral; Z95.5 Presence of coronary angioplasty implant and graft; R94.31 Abnormal electrocardiogram [ECG] [EKG]
CPT/HCPCS: 36415; 80053; 81001; 83690; 85025; 87077; 87086; 87088; 87186; 93005; 99283; A9270

== ENCOUNTER 2021-06-26 08:53 | Emergency (ER) | payer MEDICARE, SELFPAY ==
[2021-06-26 09:06] VITALS: BP 170/79; PULSE 82; RESP 18; TEMP 36; O2SAT 98
[2021-06-26] MEDS: BELLADONNA ALK/PHENOB ELIX 10 ML, MAG HYDROX/ALUMINUM HYD/SIMETH 30 ML, LIDOCAINE HCL 2... PO (10:44)
[2021-06-26 10:57] LABS: Basophils Absolute Auto 0.1 K/mm3 (0.0-0.1); Basophils Percent Auto 1.4 % (0.2-1.2); Eosinophils Absolute Auto 0.1 K/mm3 (0-0.3); Eosinophils Percent Auto 2.1 % (0-4.4); Hematocrit 30.9 % (37.0-47.0); Hemoglobin 9.6 g/dL (12.0-15.0); Immature Granulocyte Absolute 0.03 K/mm3 (0.00-0.031); Immature Granulocyte Percent A 0.7 % (0-0.5); Lymphocytes Absolute Auto 1.03 K/mm3 (0.9-3.2); Mean Corpuscular HGB Conc 31.1 g/dl (32-36); Mean Corpuscular Hemoglobin 32.2 pg (26-34); Mean Corpuscular Volume 103.7 fl (80-100); Mean Platelet Volume 10.1 fl (7.4-10.4); Monocytes Absolute Auto 0.4 K/mm3 (0.1-0.6); Neutrophils Absolute Auto 2.7 K/mm3 (1.3-6.7); Neutrophils Percent Auto 61.8 % (45.5-73.1); Platelet Count Result 185 k/mm3 (150-375); Red Blood Count 2.98 M/mm3 (4.2-5.4); Red Cell Distribution Width 13.1 % (11.5-14.5); White Blood Count 4.3 K/mm3 (4.5-10.0)
[2021-06-26 11:01] LABS: Alanine Aminotransferase 38 U/L (4-35); Albumin Level 4.4 g/dL (3.5-5.1); Alkaline Phosphatase 67 U/L (38-126); Anion Gap 8 mmol/L (8-16); Aspartate Amino Transferase 69 U/L (14-36); Bilirubin,Total 0.8 mg/dL (0.2-1.3); Blood Urea Nitrogen 15 mg/dL (7-17); Calcium 8.9 mg/dL (8.4-10.2); Carbon Dioxide 28 mmol/L (22-30); Chloride 99 mmol/L (98-107); Estimated CRCL calculation 27 ml/min; Estimated Glomerular Filt Rate 31; Glucose 93 mg/dL (65-110); Lipase 185 U/L (23-300); Potassium 2.9 mmol/L (3.4-5.0); Sodium 135 mmol/L (137-145)
[2021-06-26] MEDS: POTASSIUM CHLORIDE 20 MEQ TABLET 40 MEQ PO (11:38)
[2021-06-26 12:51] LABS: Add Urine Microscopic? YES; Appearance Urine Clear (Clear); Bacteria Urine Trace /hpf; Bilirubin Urine Negative (Negative); Blood Urine 1+ (Negative); Color Urine Straw (Yellow); Glucose Urine UA Negative (Negative); Ketones Urine Negative (Negative); Leukocyte Esterase Ur 1+ LEU/UL (Negative); Mucus Urine Rare /lpf; Nitrate Urine Negative (Negative); Protein Urine 2+ mg/dL (Negative); Specific Grav Ur 1.006 (1.001-1.035); Squamous Epithelial Cell Urine Occasional /hpf (Few); Urobilinogen Urine Negative mg/dL (<2.0)
[2021-06-26 13:25] VITALS: BP 177/100; PULSE 72; RESP 18; O2SAT 100
[2021-06-26 13:41] VITALS: BP 168/110
--- NOTE | 2021-06-26 14:59 | ED.GENADULT ---
HPI - General Adult General Chief complaint: Abdominal Pain Stated complaint: abdominal pain Time Seen by Provider: 06/26/21 10:06 Source: patient Mode of arrival: ambulatory Limitations: no limitations History of Present Illness HPI narrative: Presents with hx of gerd, chronic constipation, hypertension, and chronic hypokalemia presents chief complaint of epigastric burning in the center of her stomach radiating up to her chest. Patient states that she has these symptoms frequently due to chronic GERD. Patient reports longstanding history of the same and has been previously diagnosed with GERD. Reports her symptoms are similar to her prior GERD flare ups. Patient saw her GI specialist on the and was started on linzess for her chronic constipation. . Her pain is constant describes a burning sensation. no clear aggravating or alleviating factors. She denies any nausea or vomiting. she denies any cough, shortness of breath, fever, or diarrhea. Patient does report increased urinary frequency, pain with urination. She reports she has almost completed her abx for the UTI found at her prior visit. Related Data Home Medications Medication Instructions Recorded Confirmed clopidogrel 75 mg tablet 75 mg PO DAILY 12/15/20 06/24/21 ferrous sulfate 325 mg (65 mg 325 mg PO DAILY 12/15/20 06/24/21 iron) tablet furosemide 20 mg tablet 20 mg PO QAM 12/15/20 06/24/21 nitroglycerin 0.4 mg sublingual 0.4 mg SUBLINGUAL PRN PRN 12/15/20 06/24/21 tablet Entresto 1 tablet PO BID 02/10/21 06/24/21 levothyroxine 125 mcg tablet 125 mcg PO DAILY 04/18/21 06/24/21 oxybutynin chloride 10 mg 10 mg PO DAILY 04/18/21 06/24/21 tablet,extended release 24 hr sertraline 25 mg tablet 25 mg PO DAILY 04/18/21 06/24/21 acyclovir 200 mg PO DAILY PRN 04/29/21 06/24/21 cholecalciferol (vitamin D3) 5,000 unit PO DAILY 04/29/21 06/24/21 sacubitril-valsartan [Entresto] 05/13/21 06/24/21 hydralazine 06/09/21 06/24/21 metoprolol succinate PO 06/09/21 06/24/21 prednisolone acetate drp 06/09/21 06/24/21 trazodone 06/09/21 06/24/21 Allergies Allergy/AdvReac Type Severity Reaction Status Date / Time Penicillins Allergy Unknown Rash Verified 06/24/21 10:13 Review of Systems Review of Systems: CONSTITUTIONAL: Denies fever, chills, or sweats. EYES: Denies visual changes, redness, or discharge. ENT: Denies rhinorrhea, congestion, sore throat, or otalgia. CARDIOVASCULAR: Denies chest pain, palpitations, or edema. RESPIRATORY: Denies cough or dyspnea. GASTROINTESTINAL: Reports epigastric pain denies nausea, vomiting, or diarrhea. GENITOURINARY: Denies dysuria or hematuria. SKIN: Denies rash or itching. MUSCULOSKELETAL: Denies back pain, joint pain, or myalgia. NEUROLOGIC: Denies headache, numbness, dizziness, or weakness. PSYCHIATRIC: Denies anxiety or depression. [facility] Past Medical History Medical History (Updated 06/26/21 @ 14:47 by Asa Bergman PA-C) Acute kidney failure, unspecified Anxiety and depression Chronic anemia Chronic kidney disease, stage 3 Chronic kidney disease, stage 3b Congestive heart failure Systolic and diastolic congestive heart failure Echo 11/27 showed EF 50%. Echo 01/14/2019: EF measured at 39%. September 2018 EF was 25%. Echo 12/02/2019 EF 50-55%. Grade 1 diastolic function. Constipation Coronary artery disease With multivessel surgical revascularization with PCI at [place] October 2017. Cardiac catheterization 10/17/2018-mild preserved intra-stent luminal diameter Current use of fci anticoagulation Depression with anxiety Detached retina Right-sided, x2. Frequent headaches GERD (gastroesophageal reflux disease) With history of esophageal stricture requiring dilatation. History of GI bleed History of rectal polyps Hyperlipidemia Hypertension Hypothyroidism TSH in November 2019 was a bit low, with normal T4. Irritable bowel syndrome Ischemic cardiomyopathy Mitral valve prolapse Myasthenia gravis Questionable history
== END 2021-06-26 15:01 | disposition home or self-care (01) ==
PROVIDERS: Emergency Provider Family Medicine; PCP Family Medicine
DX: K21.9 Gastro-esophageal reflux disease without esophagitis (principal); K29.70 Gastritis, unspecified, without bleeding; I13.0 Hypertensive heart and chronic kidney disease with heart failure and stage 1 through stage 4 chronic kidney disease, or unspecified chronic kidney disease; N18.32 Chronic kidney disease, stage 3b; I50.9 Heart failure, unspecified; I25.10 Atherosclerotic heart disease of native coronary artery without angina pectoris; Z87.19 Personal history of other diseases of the digestive system; Z79.899 Other long term (current) drug therapy; Z88.0 Allergy status to penicillin
CPT/HCPCS: 36415; 80053; 81001; 83690; 85025; 87077; 87086; 87186; 99283; A9270

== ENCOUNTER 2021-07-02 09:44 | Emergency (ER) | payer MEDICARE, SELFPAY ==
--- NOTE | ~2021-07-02 | XR_ITS ---
EXAMINATION: XR abdomen obstructive series EXAM DATE: 07/02/2021 12:47 INDICATION: Abdominal pain. TECHNIQUE: Frontal upright projection of the upper abdomen, frontal projection of the lower abdomen f or interpretation. Comparison is made to prior examination from 05/25/2021. FINDINGS: There is moderate amount of colonic stool and gas. Nonobstructive bowel gas pattern. Exten sive phleboliths. Bilateral hip replacements. Moderate lumbar dextroscoliosis. Cholecystectomy clips. There is no organomegaly. Cardiomegaly. Lung bases unremarkable. IMPRESSION: Moderate amount of colonic stool and gas. Reviewed, dictated and finalized at location A.
[2021-07-02 09:48] VITALS: BP 138/79; PULSE 81; RESP 16; TEMP 36.1; O2SAT 98
--- NOTE | 2021-07-02 12:30 | ED.ABDPAIN ---
HPI - Abdominal Pain General Chief Complaint: Abdominal Pain Stated Complaint: abd pain Time Seen by Provider: 07/02/21 11:32 Source: patient Mode of arrival: ambulatory Limitations: no limitations History of Present Illness HPI narrative: Patient presents for evaluation of abdominal bloating. Indicates she has had symptoms for several years and is unable to tell me what about her specific symptoms prompted her to come to the ER today. On chart review, it appears she has been seen here multiple times as of late for the same symptoms. She also saw her GI provider. During several of her ER stays it was noted that her symptoms were consistent with GERD, on a recent ER visit, she was diagnosed and treated for urinary tract infection. She states she is a history of constipation and sometimes needs to manually disimpact herself. She states that her last bowel movement was yesterday and was a decent size. She has not had blood or mucous in the stool. She reports some nausea on and off but has not experienced vomiting. She has a burning sensation in her abdominal region. She denies any fever, chills, chest pain or SOB. She states she has an appointment to see Dr Coates in the next few days. She had a colonoscopy in 2017 which showed hemorrhoids but no polyps. EGD in 2018 with esophageal ring that was dilated. Related Data Home Medications Medication Instructions Recorded Confirmed clopidogrel 75 mg tablet 75 mg PO DAILY 12/15/20 06/24/21 ferrous sulfate 325 mg (65 mg 325 mg PO DAILY 12/15/20 06/24/21 iron) tablet furosemide 20 mg tablet 20 mg PO QAM 12/15/20 06/24/21 nitroglycerin 0.4 mg sublingual 0.4 mg SUBLINGUAL PRN PRN 12/15/20 06/24/21 tablet Entresto 1 tablet PO BID 02/10/21 06/24/21 levothyroxine 125 mcg tablet 125 mcg PO DAILY 04/18/21 06/24/21 oxybutynin chloride 10 mg 10 mg PO DAILY 04/18/21 06/24/21 tablet,extended release 24 hr sertraline 25 mg tablet 25 mg PO DAILY 04/18/21 06/24/21 acyclovir 200 mg PO DAILY PRN 04/29/21 06/24/21 cholecalciferol (vitamin D3) 5,000 unit PO DAILY 04/29/21 06/24/21 sacubitril-valsartan [Entresto] 05/13/21 06/24/21 hydralazine 06/09/21 06/24/21 metoprolol succinate PO 06/09/21 06/24/21 prednisolone acetate drp 06/09/21 06/24/21 trazodone 06/09/21 06/24/21 Allergies Allergy/AdvReac Type Severity Reaction Status Date / Time Penicillins Allergy Unknown Rash Verified 06/24/21 10:13 Review of Systems Review of Systems: CONSTITUTIONAL: Denies fever, chills, or sweats. EYES: Denies visual changes, redness, or discharge. ENT: Denies rhinorrhea, congestion, sore throat, or otalgia. CARDIOVASCULAR: Denies chest pain, palpitations, or edema. RESPIRATORY: Denies cough or dyspnea. GASTROINTESTINAL: Reports nausea without vomiting. Reports burning sensation in her abdomen. Reports constipation but denies diarrhea. GENITOURINARY: Denies dysuria or hematuria. SKIN: Denies rash or itching. MUSCULOSKELETAL: Denies back pain, joint pain, or myalgia. NEUROLOGIC: Denies headache, numbness, dizziness, or weakness. PSYCHIATRIC: Denies anxiety or depression. [facility] Past Medical History Medical History Acute kidney failure, unspecified Anxiety and depression Chronic anemia Chronic kidney disease, stage 3 Chronic kidney disease, stage 3b Congestive heart failure Systolic and diastolic congestive heart failure Echo 11/27 showed EF 50%. Echo 01/14/2019: EF measured at 39%. September 2018 EF was 25%. Echo 12/02/2019 EF 50-55%. Grade 1 diastolic function. Constipation Coronary artery disease With multivessel surgical revascularization with PCI at [place] October 2017. Cardiac catheterization 10/17/2018-mild preserved intra-stent luminal diameter Current use of kiln pusher anticoagulation Depression with anxiety Detached retina Right-sided, x2. Frequent headaches GERD (gastroesophageal reflux disease) With history of esophageal stricture re
== END 2021-07-02 09:48 | disposition left against medical advice (07) ==
PROVIDERS: Emergency Provider Nurse Practitioner
DX: R10.84 Generalized abdominal pain (principal); K59.09 Other constipation; I13.0 Hypertensive heart and chronic kidney disease with heart failure and stage 1 through stage 4 chronic kidney disease, or unspecified chronic kidney disease; N18.32 Chronic kidney disease, stage 3b; I50.40 Unspecified combined systolic (congestive) and diastolic (congestive) heart failure; D63.1 Anemia in chronic kidney disease; I25.10 Atherosclerotic heart disease of native coronary artery without angina pectoris; E78.5 Hyperlipidemia, unspecified; I48.0 Paroxysmal atrial fibrillation; I25.5 Ischemic cardiomyopathy; E03.9 Hypothyroidism, unspecified; G25.81 Restless legs syndrome; G47.33 Obstructive sleep apnea (adult) (pediatric); K58.9 Irritable bowel syndrome, unspecified; F41.8 Other specified anxiety disorders; K62.6 Ulcer of anus and rectum; G62.9 Polyneuropathy, unspecified; Z98.42 Cataract extraction status, left eye; Z98.41 Cataract extraction status, right eye; Z96.643 Presence of artificial hip joint, bilateral; Z96.653 Presence of artificial knee joint, bilateral; Z95.5 Presence of coronary angioplasty implant and graft
CPT/HCPCS: 74019; 99283

== ENCOUNTER 2021-07-04 09:03 | Emergency (ER) | payer MEDICARE, SELFPAY ==
[2021-07-04 09:30] VITALS: BP 150/113; PULSE 74; RESP 16; TEMP 36.8; O2SAT 99
--- NOTE | 2021-07-04 09:50 | ED.GENADULT ---
HPI - General Adult General Chief complaint: Abdominal Pain Stated complaint: Chest and ABD Pain Time Seen by Provider: 07/04/21 09:50 Source: patient Mode of arrival: ambulatory Limitations: no limitations History of Present Illness HPI narrative: Patient is here this morning for some abdominal bloating and reflux-like chest pain that occurred late last night and early this morning. She did not take any of her medications this morning, she did state that she tried to see the GI doctor but he was not in. She otherwise looks well and states that she is feeling better at this time. She has had frequent emergency room visits in the last several months for similar complaints. At this time she feels her abdomen may be a little more distended and feel warm. Onset (ago): hour(s) Pain Consistency: now resolved Exacerbating factors: none Related Data Home Medications Medication Instructions Recorded Confirmed clopidogrel 75 mg tablet 75 mg PO DAILY 12/15/20 06/24/21 ferrous sulfate 325 mg (65 mg 325 mg PO DAILY 12/15/20 06/24/21 iron) tablet furosemide 20 mg tablet 20 mg PO QAM 12/15/20 06/24/21 nitroglycerin 0.4 mg sublingual 0.4 mg SUBLINGUAL PRN PRN 12/15/20 06/24/21 tablet Entresto 1 tablet PO BID 02/10/21 06/24/21 levothyroxine 125 mcg tablet 125 mcg PO DAILY 04/18/21 06/24/21 oxybutynin chloride 10 mg 10 mg PO DAILY 04/18/21 06/24/21 tablet,extended release 24 hr sertraline 25 mg tablet 25 mg PO DAILY 04/18/21 06/24/21 acyclovir 200 mg PO DAILY PRN 04/29/21 06/24/21 cholecalciferol (vitamin D3) 5,000 unit PO DAILY 04/29/21 06/24/21 sacubitril-valsartan [Entresto] 05/13/21 06/24/21 hydralazine 06/09/21 06/24/21 metoprolol succinate PO 06/09/21 06/24/21 prednisolone acetate drp 06/09/21 06/24/21 trazodone 06/09/21 06/24/21 Allergies Allergy/AdvReac Type Severity Reaction Status Date / Time Penicillins Allergy Unknown Rash Verified 06/24/21 10:13 Review of Systems Review of Systems: All systems reviewed & are unremarkable except as noted in HPI and below [facility] Past Medical History Medical History Acute kidney failure, unspecified Anxiety and depression Chronic anemia Chronic kidney disease, stage 3 Chronic kidney disease, stage 3b Congestive heart failure Systolic and diastolic congestive heart failure Echo 11/27 showed EF 50%. Echo 01/14/2019: EF measured at 39%. September 2018 EF was 25%. Echo 12/02/2019 EF 50-55%. Grade 1 diastolic function. Constipation Coronary artery disease With multivessel surgical revascularization with PCI at [place] October 2017. Cardiac catheterization 10/17/2018-mild preserved intra-stent luminal diameter Current use of technician terminal and repeater anticoagulation Depression with anxiety Detached retina Right-sided, x2. Frequent headaches GERD (gastroesophageal reflux disease) With history of esophageal stricture requiring dilatation. History of GI bleed History of rectal polyps Hyperlipidemia Hypertension Hypothyroidism TSH in November 2019 was a bit low, with normal T4. Irritable bowel syndrome Ischemic cardiomyopathy Mitral valve prolapse Myasthenia gravis Questionable history of. Obstructive sleep apnea Ocular herpes zoster History of shingles to the left eye, on chronic antiviral therapy. Paroxysmal atrial fibrillation No longer on long-term anticoagulation due to history of falls. Peripheral neuropathy Rectal polyp Restless leg syndrome Shingles Solitary rectal ulcer syndrome Stage III chronic kidney disease Surgical History Surgical History Status post appendectomy Status post bilateral hip replacements Status post bilateral knee replacements Status post breast biopsy Bilateral with benign histology. Status post carpal tunnel release Status post cataract extraction Bilateral. Status post cholecystectomy Status post laminectomy Lumbar spine. Status post LASI
[2021-07-04 10:00] VITALS: BP 165/103; PULSE 72; RESP 12; O2SAT 97
[2021-07-04 11:11] VITALS: BP 158/98; PULSE 77; RESP 12; O2SAT 96
[2021-07-04] MEDS: BELLADONNA ALK/PHENOB ELIX 10 ML, MAG HYDROX/ALUMINUM HYD/SIMETH 30 ML, LIDOCAINE HCL 2... PO (11:12)
[2021-07-04 11:40] VITALS: BP 158/98; PULSE 63; RESP 14; O2SAT 96
== END 2021-07-04 11:40 | disposition home or self-care (01) ==
PROVIDERS: Emergency Provider Emergency Medicine; PCP Family Medicine
DX: K21.9 Gastro-esophageal reflux disease without esophagitis (principal); I13.0 Hypertensive heart and chronic kidney disease with heart failure and stage 1 through stage 4 chronic kidney disease, or unspecified chronic kidney disease; N18.32 Chronic kidney disease, stage 3b; I50.40 Unspecified combined systolic (congestive) and diastolic (congestive) heart failure; D63.1 Anemia in chronic kidney disease; I25.10 Atherosclerotic heart disease of native coronary artery without angina pectoris; E78.5 Hyperlipidemia, unspecified; I48.0 Paroxysmal atrial fibrillation; I25.5 Ischemic cardiomyopathy; E03.9 Hypothyroidism, unspecified; G25.81 Restless legs syndrome; G47.33 Obstructive sleep apnea (adult) (pediatric); K58.9 Irritable bowel syndrome, unspecified; F41.8 Other specified anxiety disorders; K62.6 Ulcer of anus and rectum; G62.9 Polyneuropathy, unspecified; Z98.42 Cataract extraction status, left eye; Z98.41 Cataract extraction status, right eye; Z96.643 Presence of artificial hip joint, bilateral; Z96.653 Presence of artificial knee joint, bilateral; Z95.5 Presence of coronary angioplasty implant and graft
CPT/HCPCS: 99283; A9270

== ENCOUNTER 2021-07-05 20:50 | Emergency (ER) | payer MEDICARE, SELFPAY ==
--- NOTE | ~2021-07-05 | XR_ITS ---
EXAMINATION: XR chest 1V portable INDICATION: Chest pain TECHNIQUE: Portable AP chest at 2118 hours COMPARISON: 06/14/2021 FINDINGS: There is stable cardiomegaly. Minimal opacities present in the left costophrenic angle. The re is no pneumothorax. Coronary artery stents are noted. There is a calcified loose body in the right shoulder. IMPRESSION: 1. Stable cardiomegaly. 2. Left basilar opacity, consistent with pleural effusion and/or atelectasis and/or pneumonia. Reviewed, dictated and finalized at location A. IMPRESSION: 1. Stable cardiomegaly. 2. Left basilar opacity, consistent with pleural effusion and/or atelectasis an d/or pneumonia.
[2021-07-05 20:53] VITALS: BP 144/95; PULSE 79; RESP 18; TEMP 36.8; O2SAT 98
--- NOTE | 2021-07-05 21:02 | ECG_ITS ---
Measurements Intervals [place] Rate: 78 P: 44 [place]: 151 QRS: -40 QRSD: 104 T: 180 QT: 348 QTc: 397 Interpretive Statements SINUS RHYTHM ATRIAL AND VENTRICULAR PREMATURE COMPLEXES LEFT AXIS DEVIATION CANNOT RULE OUT SEPTAL INFARCT, AGE INDETERMINATE BORDERLINE ST-T WAVE ABNORMALITY- INF/HIGH LAT LEADS BASELINE ARTIFACT- V4-V6 ABNORMAL ECG Electronically Signed On 07-06-2021 6:56:40 CDT by Marlon Joe D.O.
[2021-07-05 21:24] LABS: Basophils Percent Auto 0.9 % (0.2-1.2); Eosinophils Absolute Auto 0.1 K/mm3 (0-0.3); Eosinophils Percent Auto 2.8 % (0-4.4); Hematocrit 25.9 % (37.0-47.0); Hemoglobin 8.5 g/dL (12.0-15.0); Immature Granulocyte Absolute 0.03 K/mm3 (0.00-0.031); Immature Granulocyte Percent A 0.9 % (0-0.5); Lymphocytes Percent Auto 25.6 % (18.3-44.2); Mean Corpuscular HGB Conc 32.8 g/dl (32-36); Mean Corpuscular Hemoglobin 32.7 pg (26-34); Mean Corpuscular Volume 99.6 fl (80-100); Mean Platelet Volume 10.1 fl (7.4-10.4); Monocytes Absolute Auto 0.3 K/mm3 (0.1-0.6); Monocytes Percent Auto 8.5 % (2.6-8.5); Neutrophils Absolute Auto 2.2 K/mm3 (1.3-6.7); Neutrophils Percent Auto 61.3 % (45.5-73.1); Platelet Count Result 186 k/mm3 (150-375); Red Cell Distribution Width 13.2 % (11.5-14.5); White Blood Count 3.5 K/mm3 (4.5-10.0)
[2021-07-05 21:36] LABS: INR 0.8; Prothrombin Time 10.9 Seconds (11.1-14.7)
[2021-07-05 21:37] LABS: Partial Thromboplastin Time 30.1 SECONDS (22.3-36.8)
[2021-07-05 21:46] LABS: Anion Gap 8 mmol/L (8-16); Blood Urea Nitrogen 18 mg/dL (7-17); Calcium 8.8 mg/dL (8.4-10.2); Carbon Dioxide 28 mmol/L (22-30); Chloride 98 mmol/L (98-107); Estimated CRCL calculation 16 ml/min; Estimated Glomerular Filt Rate 24; Glucose 124 mg/dL (65-110); Potassium 2.6 mmol/L (3.4-5.0); Sodium 134 mmol/L (137-145)
[2021-07-05 21:48] LABS: Troponin I 0.013 ng/mL (0.000-0.034)
--- NOTE | 2021-07-05 21:49 | ED.CHESTPAIN ---
HPI - Chest Pain General Chief Complaint: Chest Pain Stated Complaint: chest pain Time Seen by Provider: 07/05/21 21:08 Source: patient and RN notes reviewed Mode of arrival: EMS Limitations: no limitations History of Present Illness HPI narrative: This is an 81 year old female with history of chronic chest pain, chronic GERD who presents for evaluation of left lateral chest pain. Patient states she developed pain 3 hours ago when she was washing her face. She called 911 and EMS gave patient aspirin and nitroglycerin. Patient reports her pain has improved. She denies associated nausea, vomiting, fever, shortness of breath or diaphoresis. She does admit she has been evaluated in ER multiple times for similar pain. She denies history of cardiac stents and she reports normal stress test within past 1 year. Related Data Home Medications Medication Instructions Recorded Confirmed clopidogrel 75 mg tablet 75 mg PO DAILY 12/15/20 06/24/21 ferrous sulfate 325 mg (65 mg 325 mg PO DAILY 12/15/20 06/24/21 iron) tablet furosemide 20 mg tablet 20 mg PO QAM 12/15/20 06/24/21 nitroglycerin 0.4 mg sublingual 0.4 mg SUBLINGUAL PRN PRN 12/15/20 06/24/21 tablet Entresto 1 tablet PO BID 02/10/21 06/24/21 levothyroxine 125 mcg tablet 125 mcg PO DAILY 04/18/21 06/24/21 oxybutynin chloride 10 mg 10 mg PO DAILY 04/18/21 06/24/21 tablet,extended release 24 hr sertraline 25 mg tablet 25 mg PO DAILY 04/18/21 06/24/21 acyclovir 200 mg PO DAILY PRN 04/29/21 06/24/21 cholecalciferol (vitamin D3) 5,000 unit PO DAILY 04/29/21 06/24/21 sacubitril-valsartan [Entresto] 05/13/21 06/24/21 hydralazine 06/09/21 06/24/21 metoprolol succinate PO 06/09/21 06/24/21 prednisolone acetate drp 06/09/21 06/24/21 trazodone 06/09/21 06/24/21 Allergies Allergy/AdvReac Type Severity Reaction Status Date / Time Penicillins Allergy Unknown Rash Verified 06/24/21 10:13 Review of Systems Review of Systems: All systems reviewed & are unremarkable except as noted in HPI and below PMFSH Past Medical History Medical History Acute kidney failure, unspecified Anxiety and depression Chronic anemia Chronic kidney disease, stage 3 Chronic kidney disease, stage 3b Congestive heart failure Systolic and diastolic congestive heart failure Echo 11/27 showed EF 50%. Echo 01/14/2019: EF measured at 39%. September 2018 EF was 25%. Echo 12/02/2019 EF 50-55%. Grade 1 diastolic function. Constipation Coronary artery disease With multivessel surgical revascularization with PCI at [place] October 2017. 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 Frequent headaches GERD (gastroesophageal reflux disease) With history of esophageal stricture requiring dilatation. History of GI bleed History of rectal polyps Hyperlipidemia Hypertension Hypothyroidism TSH in November 2019 was a bit low, with normal T4. Irritable bowel syndrome Ischemic cardiomyopathy Mitral valve prolapse Myasthenia gravis Questionable history of. Obstructive sleep apnea Ocular herpes zoster History of shingles to the left eye, on chronic antiviral therapy. Paroxysmal atrial fibrillation No longer on long-term anticoagulation due to history of falls. Peripheral neuropathy Rectal polyp Restless leg syndrome Shingles Solitary rectal ulcer syndrome Stage III chronic kidney disease Surgical History Surgical History Status post appendectomy Status post bilateral hip replacements Status post bilateral knee replacements Status post breast biopsy Bilateral with benign histology. Status post carpal tunnel release Status post cataract extraction Bilateral. Status post cholecystectomy Status post laminectomy Lumbar spine. Status post LASIK surgery Statu
[2021-07-05] MEDS: POTASSIUM CHLORIDE 20 MEQ PACKET (FOR LIQUID) 40 MEQ PO (22:14)
[2021-07-05] MEDS: BELLADONNA ALK/PHENOB ELIX 10 ML, MAG HYDROX/ALUMINUM HYD/SIMETH 30 ML, LIDOCAINE HCL 2... PO (22:14)
[2021-07-06 00:01] VITALS: BP 154/109; PULSE 74; RESP 18; O2SAT 98
[2021-07-06 00:50] LABS: Troponin I 0.013 ng/mL (0.000-0.034)
[2021-07-06 02:18] VITALS: BP 149/91; PULSE 73; RESP 18; O2SAT 97
== END 2021-07-06 02:37 | disposition home or self-care (01) ==
PROVIDERS: Emergency Medicine; Emergency Provider General Practice; PCP Family Medicine
DX: R07.89 Other chest pain (principal); E87.6 Hypokalemia; I13.0 Hypertensive heart and chronic kidney disease with heart failure and stage 1 through stage 4 chronic kidney disease, or unspecified chronic kidney disease; N18.32 Chronic kidney disease, stage 3b; I50.40 Unspecified combined systolic (congestive) and diastolic (congestive) heart failure; D63.1 Anemia in chronic kidney disease; I25.10 Atherosclerotic heart disease of native coronary artery without angina pectoris; E78.5 Hyperlipidemia, unspecified; I48.0 Paroxysmal atrial fibrillation; I25.5 Ischemic cardiomyopathy; E03.9 Hypothyroidism, unspecified; G25.81 Restless legs syndrome; G47.33 Obstructive sleep apnea (adult) (pediatric); K58.9 Irritable bowel syndrome, unspecified; F41.8 Other specified anxiety disorders; K62.6 Ulcer of anus and rectum; G62.9 Polyneuropathy, unspecified; Z98.42 Cataract extraction status, left eye; Z98.41 Cataract extraction status, right eye; Z96.643 Presence of artificial hip joint, bilateral; Z96.653 Presence of artificial knee joint, bilateral; Z95.5 Presence of coronary angioplasty implant and graft; I49.1 Atrial premature depolarization; I49.3 Ventricular premature depolarization; R94.31 Abnormal electrocardiogram [ECG] [EKG]
CPT/HCPCS: 36415; 71045; 80048; 84484; 85025; 85610; 85730; 93005; 99284; A9270

== ENCOUNTER 2021-07-16 16:38 | Emergency (ER) | payer MEDICARE, SELFPAY ==
[2021-07-16 16:40] VITALS: BP 143/89; PULSE 80; RESP 18; TEMP 36.4; O2SAT 98
--- NOTE | 2021-07-16 18:58 | ECG_ITS ---
Measurements Intervals [place] Rate: 78 P: 42 MA: 155 QRS: -32 QRSD: 106 T: 60 QT: 409 QTc: 469 Interpretive Statements SINUS RHYTHM ATRIAL AND VENTRICULAR PREMATURE COMPLEXES LEFT AXIS DEVIATION ANTEROSEPTAL INFARCT, AGE INDETERMINATE BORDERLINE T WAVE ABNORMALITY- INF/LAT LEADS ABNORMAL ECG Electronically Signed On 07-17-2021 7:32:53 CDT by Marlon Joe D.O.
--- NOTE | 2021-07-16 20:48 | PC.NURSE ---
pt. called 2x to be taken to room. no answer
== END 2021-07-16 16:47 | disposition left against medical advice (07) ==
LOC: ANHED 21:24
PROVIDERS: Emergency Provider Emergency Medicine; PCP Family Medicine
DX: Z53.21 Procedure and treatment not carried out due to patient leaving prior to being seen by health care provider (principal)
CPT/HCPCS: 93005; 99199

== ENCOUNTER 2021-07-25 06:09 | Emergency (ER) | payer MEDICARE, SELFPAY ==
[2021-07-25 06:17] VITALS: BP 135/93; PULSE 80; RESP 16; O2SAT 97
[2021-07-25 06:43] VITALS: TEMP 36.2
[2021-07-25] MEDS: BELLADONNA ALK/PHENOB ELIX 10 ML, MAG HYDROX/ALUMINUM HYD/SIMETH 30 ML, LIDOCAINE HCL 2... PO (07:35)
--- NOTE | 2021-07-25 07:39 | ED.ABDPAIN ---
HPI - Abdominal Pain General Chief Complaint: Abdominal Pain Stated Complaint: epigastric pain Time Seen by Provider: 07/25/21 06:58 History of Present Illness HPI narrative: Patient is an 81-year-old female who presents ER with epigastric pain. Ongoing for last couple days. No improvement with Mylanta. Has this regularly but reports its been more intense. She reports that radiates to her back. She feels like she is more bloated. She has had normal bowel movements. No nausea or vomiting. Denies fevers or chills or sweats. No exertional chest pain or chest pressure or difficulty breathing. Related Data Home Medications Medication Instructions Recorded Confirmed clopidogrel 75 mg tablet 75 mg PO DAILY 12/15/20 06/24/21 ferrous sulfate 325 mg (65 mg 325 mg PO DAILY 12/15/20 06/24/21 iron) tablet furosemide 20 mg tablet 20 mg PO QAM 12/15/20 06/24/21 nitroglycerin 0.4 mg sublingual 0.4 mg SUBLINGUAL PRN PRN 12/15/20 06/24/21 tablet Entresto 1 tablet PO BID 02/10/21 06/24/21 levothyroxine 125 mcg tablet 125 mcg PO DAILY 04/18/21 06/24/21 oxybutynin chloride 10 mg 10 mg PO DAILY 04/18/21 06/24/21 tablet,extended release 24 hr sertraline 25 mg tablet 25 mg PO DAILY 04/18/21 06/24/21 acyclovir 200 mg PO DAILY PRN 04/29/21 06/24/21 cholecalciferol (vitamin D3) 5,000 unit PO DAILY 04/29/21 06/24/21 sacubitril-valsartan [Entresto] 05/13/21 06/24/21 hydralazine 06/09/21 06/24/21 metoprolol succinate PO 06/09/21 06/24/21 prednisolone acetate drp 06/09/21 06/24/21 trazodone 06/09/21 06/24/21 Allergies Allergy/AdvReac Type Severity Reaction Status Date / Time Penicillins Allergy Unknown Rash Verified 06/24/21 10:13 Review of Systems Review of Systems: All systems reviewed & are unremarkable except as noted in HPI and below Constitutional: Constitutional: Denies chills, Denies fever(s) and Denies weakness ENT: Denies nasal congestion and Denies sore throat Cardiovascular: Cardiovascular: Denies chest pain, Denies rapid heart rate and Denies radiating jaw, neck or arm pain Respiratory: Respiratory: Denies cough and Denies dyspnea Gastrointestinal: Gastrointestinal: Reports abdominal pain, Reports bloating, Denies diarrhea, Denies nausea and Denies vomiting PMF Past Medical History Medical History Acute kidney failure, unspecified Anxiety and depression Chronic anemia Chronic kidney disease, stage 3 Chronic kidney disease, stage 3b Congestive heart failure Systolic and diastolic congestive heart failure Echo 11/27 showed EF 50%. Echo 01/14/2019: EF measured at 39%. September 2018 EF was 25%. Echo 12/02/2019 EF 50-55%. Grade 1 diastolic function. Constipation Coronary artery disease With multivessel surgical revascularization with PCI at [place] October 2017. 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 Frequent headaches GERD (gastroesophageal reflux disease) With history of esophageal stricture requiring dilatation. History of GI bleed History of rectal polyps Hyperlipidemia Hypertension Hypothyroidism TSH in November 2019 was a bit low, with normal T4. Irritable bowel syndrome Ischemic cardiomyopathy Mitral valve prolapse Myasthenia gravis Questionable history of. Obstructive sleep apnea Ocular herpes zoster History of shingles to the left eye, on chronic antiviral therapy. Paroxysmal atrial fibrillation No longer on long-term anticoagulation due to history of falls. Peripheral neuropathy Rectal polyp Restless leg syndrome Shingles Solitary rectal ulcer syndrome Stage III chronic kidney disease Surgical History Surgical History Status post appendectomy Status post bilateral hip replacements Status post bilateral knee replacements Status post breast bi
[2021-07-25 07:57] LABS: Basophils Percent Auto 0.5 % (0.2-1.2); Eosinophils Absolute Auto 0.1 K/mm3 (0-0.3); Eosinophils Percent Auto 2.4 % (0-4.4); Hematocrit 28.1 % (37.0-47.0); Hemoglobin 9.2 g/dL (12.0-15.0); Immature Granulocyte Absolute 0.02 K/mm3 (0.00-0.031); Immature Granulocyte Percent A 0.5 % (0-0.5); Lymphocytes Absolute Auto 0.78 K/mm3 (0.9-3.2); Mean Corpuscular HGB Conc 32.7 g/dl (32-36); Mean Corpuscular Hemoglobin 32.3 pg (26-34); Mean Corpuscular Volume 98.6 fl (80-100); Mean Platelet Volume 10.4 fl (7.4-10.4); Monocytes Absolute Auto 0.4 K/mm3 (0.1-0.6); Monocytes Percent Auto 9.3 % (2.6-8.5); Neutrophils Absolute Auto 2.8 K/mm3 (1.3-6.7); Neutrophils Percent Auto 68.3 % (45.5-73.1); Platelet Count Result 214 k/mm3 (150-375); Red Blood Count 2.85 M/mm3 (4.2-5.4); Red Cell Distribution Width 13.2 % (11.5-14.5); White Blood Count 4.1 K/mm3 (4.5-10.0)
[2021-07-25 08:19] LABS: Alanine Aminotransferase 35 U/L (4-35); Albumin Level 4.3 g/dL (3.5-5.1); Alkaline Phosphatase 64 U/L (38-126); Anion Gap 5 mmol/L (8-16); Aspartate Amino Transferase 70 U/L (14-36); Bilirubin,Total 0.6 mg/dL (0.2-1.3); Blood Urea Nitrogen 14 mg/dL (7-17); Carbon Dioxide 35 mmol/L (22-30); Chloride 94 mmol/L (98-107); Estimated CRCL calculation 23 ml/min; Estimated Glomerular Filt Rate 33; Glucose 85 mg/dL (65-110); Lipase 85 U/L (23-300); Potassium 2.7 mmol/L (3.4-5.0); Sodium 134 mmol/L (137-145)
[2021-07-25] MEDS: POTASSIUM CHLORIDE 20 MEQ TABLET 40 MEQ PO (08:29)
[2021-07-25 09:20] VITALS: BP 159/97; PULSE 77; RESP 14; O2SAT 98
== END 2021-07-25 09:55 | disposition home or self-care (01) ==
PROVIDERS: Emergency Provider Emergency Medicine; PCP Family Medicine
DX: E87.6 Hypokalemia (principal); K21.9 Gastro-esophageal reflux disease without esophagitis; I13.0 Hypertensive heart and chronic kidney disease with heart failure and stage 1 through stage 4 chronic kidney disease, or unspecified chronic kidney disease; N18.32 Chronic kidney disease, stage 3b; I50.40 Unspecified combined systolic (congestive) and diastolic (congestive) heart failure; D63.1 Anemia in chronic kidney disease; I25.10 Atherosclerotic heart disease of native coronary artery without angina pectoris; E78.5 Hyperlipidemia, unspecified; I48.0 Paroxysmal atrial fibrillation; I25.5 Ischemic cardiomyopathy; E03.9 Hypothyroidism, unspecified; G25.81 Restless legs syndrome; G47.33 Obstructive sleep apnea (adult) (pediatric); K58.9 Irritable bowel syndrome, unspecified; F41.8 Other specified anxiety disorders; K62.6 Ulcer of anus and rectum; G62.9 Polyneuropathy, unspecified; Z98.42 Cataract extraction status, left eye; Z98.41 Cataract extraction status, right eye; Z96.643 Presence of artificial hip joint, bilateral; Z96.653 Presence of artificial knee joint, bilateral; Z95.5 Presence of coronary angioplasty implant and graft
CPT/HCPCS: 36415; 80053; 83690; 85025; 99283; A9270

== ENCOUNTER 2021-07-27 08:12 | Observation (INO) | payer MEDICARE, SELFPAY ==
[2021-07-27] VITALS (10 sets, daily range): BP systolic 139–156; BP diastolic 82–105; PULSE 70–95; RESP 16–21; TEMP 35.8–36.9; O2SAT 94–100; BMI 21.3
--- NOTE | ~2021-07-27 | CT_ITS ---
EXAMINATION: CT abdomen pelvis wo con DATE: 07/27/2021 08:58 INDICATION: Abdominal distention. Generalized abdominal pain. Diarrhea. TECHNIQUE: Computed tomography (CT) of the abdomen and pelvis was performed without intravenous contr ast. Automated exposure control and iterative reconstruction technique were employed. The dose-length product was 341.35 mGy-cm. COMPARISON: CT abdomen and pelvis 05/13/2021, 02/10/2021 FINDINGS: The visualized portions of the lung bases demonstrate mild atelectasis and chronic lung dis ease. There is bronchiectasis in the lower lobes. There are trace pleural effusions. Cardiomegaly is noted. There are coronary artery calcifications. There is a large pericardial effusion. The liver is normal. There are changes of cholecystectomy. Calcifications in the spleen are consistent with old gr anulomatous disease. The pancreas and adrenal glands are normal. There is mild atrophy of left kidney . There are hemorrhagic cysts in the kidneys measuring up to 18 mm on the left. There is diverticulos is of the colon without evidence of diverticulitis. There are no dilated loops of bowel. The appendix is not visualized. There are no pathologically enlarged lymph nodes. There is no free intraperitonea l fluid. There are bilateral total hip arthroplasties. There is a benign bone island in left ilium. T here is lumbar levoscoliosis and severe spondylosis. IMPRESSION: 1. Worsened large pericardial effusion. Reviewed, dictated and finalized at location A.
--- NOTE | ~2021-07-27 | XR_ITS ---
XR chest 1V portable 07/27/2021 08:51 Indication: Shortness of breath. Abdominal pain. Procedure: AP portable chest Comparison: Comparison to multiple prior studies sequentially, with oldest reviewed study dated 06/06. Findings: Cardiomegaly. Bibasilar atelectasis. No focal pneumonia, edema, significant effusion or pne umothorax. There is atherosclerosis of the aorta. There are degenerative changes of the shoulders. Impression: 1: Bibasilar atelectasis. 2: Cardiomegaly. Reviewed, dictated and finalized at location B. Impression: 1: Bibasilar atelectasis. 2: Cardiomegaly.
--- NOTE | 2021-07-27 08:25 | ECG_ITS ---
Measurements Intervals [place] Rate: 82 P: 43 RI: 146 QRS: -26 QRSD: 106 T: -5 QT: 415 QTc: 485 Interpretive Statements SINUS RHYTHM ATRIAL AND VENTRICULAR PREMATURE COMPLEXES ANTEROSEPTAL INFARCT, AGE INDETERMINATE CONSIDER INFERIOR INFARCT, AGE INDETERMINATE BASELINE ARTIFACT- I, II, V1, V3-V6 ABNORMAL ECG Electronically Signed On 07-27-2021 8:28:54 CDT by Marlon Joe D.O.
--- NOTE | 2021-07-27 08:54 | ED.GENADULT ---
HPI - General Adult General Chief complaint: Unspecified Stated complaint: body pain Time Seen by Provider: 07/27/21 08:15 Source: patient, family and RN notes reviewed Mode of arrival: ambulatory Limitations: no limitations History of Present Illness HPI narrative: This is a 81 year old female with history hypertension, CHF, hypokalemia who presents for evaluation of multiple complaints. She is complaining of burning pain from her throat to her pelvis. She also reports abdominal bloating and pain. Her states he has giving her tea with baking soda without any improvement. She denies nausea, vomiting or constipation. She had normal bowel movement this morning and her states she has multiple bowel movements throughout the day. She also states that she has congestive heart failure and it is bothering her. states she has been having shortness of breath for 2 days. He states she sleeps in a chair because she is unable to lay back due to shortness of breath. Related Data Home Medications Medication Instructions Recorded Confirmed ferrous sulfate 325 mg (65 mg 325 mg PO DAILY 12/15/20 07/27/21 iron) tablet furosemide 20 mg tablet 20 mg PO QAM 12/15/20 07/27/21 nitroglycerin 0.4 mg sublingual 0.4 mg SUBLINGUAL PRN PRN 12/15/20 07/27/21 tablet Entresto 1 tablet PO BID 02/10/21 07/27/21 levothyroxine 125 mcg tablet 125 mcg PO DAILY 04/18/21 07/27/21 oxybutynin chloride 10 mg 10 mg PO DAILY 04/18/21 07/27/21 tablet,extended release 24 hr acyclovir 200 mg PO DAILY PRN 04/29/21 07/27/21 cholecalciferol (vitamin D3) 5,000 unit PO DAILY 04/29/21 07/27/21 hydralazine 10 mg PO DAILY 06/09/21 07/27/21 metoprolol succinate PO 06/09/21 06/24/21 prednisolone acetate [Pred Forte] 1 drp EACH EYE DAILY 06/09/21 07/27/21 trazodone 100 mg PO HS 06/09/21 07/27/21 Allergies Allergy/AdvReac Type Severity Reaction Status Date / Time Penicillins Allergy Unknown Rash Verified 06/24/21 10:13 Review of Systems Review of Systems: All systems reviewed & are unremarkable except as noted in HPI and below PMFSH Past Medical History Medical History Acute kidney failure, unspecified Anxiety and depression Chronic anemia Chronic kidney disease, stage 3 Chronic kidney disease, stage 3b Congestive heart failure Systolic and diastolic congestive heart failure Echo 11/27 showed EF 50%. Echo 01/14/2019: EF measured at 39%. September 2018 EF was 25%. Echo 12/02/2019 EF 50-55%. Grade 1 diastolic function. Constipation Coronary artery disease With multivessel surgical revascularization with PCI at [place] October 2017. 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 Frequent headaches GERD (gastroesophageal reflux disease) With history of esophageal stricture requiring dilatation. History of GI bleed History of rectal polyps Hyperlipidemia Hypertension Hypothyroidism TSH in November 2019 was a bit low, with normal T4. Irritable bowel syndrome Ischemic cardiomyopathy Mitral valve prolapse Myasthenia gravis Questionable history of. Obstructive sleep apnea Ocular herpes zoster History of shingles to the left eye, on chronic antiviral therapy. Paroxysmal atrial fibrillation No longer on long-term anticoagulation due to history of falls. Peripheral neuropathy Rectal polyp Restless leg syndrome Shingles Solitary rectal ulcer syndrome Stage III chronic kidney disease Surgical History Surgical History Status post appendectomy Status post bilateral hip replacements Status post bilateral knee replacements Status post breast biopsy Bilateral with benign histology. Status post carpal tunnel release Status post cataract extraction Bilateral. Status post cholecystectomy Statu
[2021-07-27 09:40] LABS: Basophils Percent Auto 0.4 % (0.2-1.2); Eosinophils Absolute Auto 0.1 K/mm3 (0-0.3); Eosinophils Percent Auto 2.7 % (0-4.4); Hematocrit 28.7 % (37.0-47.0); Hemoglobin 9.5 g/dL (12.0-15.0); Immature Granulocyte Absolute 0.02 K/mm3 (0.00-0.031); Immature Granulocyte Percent A 0.4 % (0-0.5); Lymphocytes Absolute Auto 0.89 K/mm3 (0.9-3.2); Lymphocytes Percent Auto 19.7 % (18.3-44.2); Mean Corpuscular HGB Conc 33.1 g/dl (32-36); Mean Corpuscular Hemoglobin 32.6 pg (26-34); Mean Corpuscular Volume 98.6 fl (80-100); Mean Platelet Volume 10.1 fl (7.4-10.4); Monocytes Absolute Auto 0.4 K/mm3 (0.1-0.6); Monocytes Percent Auto 9.1 % (2.6-8.5); Neutrophils Absolute Auto 3.1 K/mm3 (1.3-6.7); Neutrophils Percent Auto 67.7 % (45.5-73.1); Platelet Count Result 209 k/mm3 (150-375); Red Blood Count 2.91 M/mm3 (4.2-5.4); Red Cell Distribution Width 13.2 % (11.5-14.5); White Blood Count 4.5 K/mm3 (4.5-10.0)
[2021-07-27 09:55] LABS: Alanine Aminotransferase 36 U/L (4-35); Albumin Level 4.5 g/dL (3.5-5.1); Alkaline Phosphatase 71 U/L (38-126); Anion Gap 7 mmol/L (8-16); Aspartate Amino Transferase 72 U/L (14-36); Bilirubin,Total 0.4 mg/dL (0.2-1.3); Blood Urea Nitrogen 17 mg/dL (7-17); Calcium 9.5 mg/dL (8.4-10.2); Carbon Dioxide 34 mmol/L (22-30); Chloride 95 mmol/L (98-107); Estimated CRCL calculation 18 ml/min; Estimated Glomerular Filt Rate 29; Glucose 82 mg/dL (65-110); INR 0.9; Lipase 120 U/L (23-300); Magnesium 2.3 mg/dL (1.6-2.3); Potassium 3.4 mmol/L (3.4-5.0); Prothrombin Time 12.1 Seconds (11.1-14.7); Sodium 136 mmol/L (137-145)
[2021-07-27 10:12] LABS: NT Pro B Type Natriuretic Pept 2020 pg/mL (5-100); Troponin I 0.013 ng/mL (0.000-0.034)
--- NOTE | 2021-07-27 13:30 | PM.IMHP ---
H&P: HPI History of Present Illness Date/Time: 07/27/21 13:30 Chief Complaint: Multiple complaints. Narrative: This is an 81-year-old female with multiple medical problems including congestive heart failure, chronic kidney disease, chronic anemia, paroxysmal atrial fibrillation, hypertension, hypothyroidism, coronary artery disease previously referred for CABG however deemed to be too frail, and several other comorbidities who presented to the emergency department earlier today from home for evaluation of multiple complaints. She has frequently reoccurring burning discomfort from her throat to pelvis which seems unchanged however over the past couple of days she has developed distention in the lower abdomen. She does not think that she is constipated as she had a bowel movement today and several soft stools yesterday however she tells me that at times she will have to use her finger to disimpact herself before having a bowel movement. In any regard, she also complains of increasing dyspnea on lesser and lesser exertion over the past 2 to 3 days as well as orthopnea. In fact she slept in her recliner the last 2 nights due to shortness of breath. Imaging today she was found to have enlarging pericardial effusion and we were asked to admit the patient in this setting. She denies fever, chills, sweats, exertional chest pain, palpitations, pleuritic pain, productive cough, vomiting, syncope, near syncope, and edema. Review of Systems Review of Systems: 12 systems were reviewed. No fever, chills, or sweats. No recent cold or flu symptoms. No melena or hematochezia. She has frequent GI discomfort and is seen in the emergency department quite often with complaints related to the same. She denies dysuria and hematuria. She denies history of urinary retention. Except as documented, all other systems were reviewed and are negative [facility] Past Medical History Medical History (Updated 07/27/21 @ 18:10 by Sunshine Bowman PA-C) Anxiety and depression Chronic anemia Chronic kidney disease, stage 3b Creatinine ranges between 1.5 and 2.00 Congestive heart failure Systolic and diastolic congestive heart failure Echo 11/27 showed EF 50%. Echo 01/14/2019: EF measured at 39%. September 2018 EF was 25%. Echo 12/02/2019 EF 50-55%. Grade 1 diastolic function. Coronary artery disease With multivessel surgical revascularization with PCI at [place] October 2017. Cardiac catheterization 10/17/2018-mild preserved intra-stent luminal diameter Depression with anxiety Detached retina Right-sided, x2. Frequent headaches Gastroesophageal reflux disease History of GI bleed Hyperlipidemia Hypertension Hypothyroidism Irritable bowel syndrome Ischemic cardiomyopathy Mitral valve prolapse Myasthenia gravis Questionable history of. Obstructive sleep apnea Ocular herpes zoster History of shingles to the left eye, on chronic antiviral therapy. Paroxysmal atrial fibrillation No longer on long-term anticoagulation due to history of falls. Peripheral neuropathy Rectal polyp Restless leg syndrome Shingles Solitary rectal ulcer syndrome Surgical History Surgical History (Updated 07/27/21 @ 18:06 by Sunshine Bowman PA-C) Status post appendectomy Status post bilateral hip replacements Status post bilateral knee replacements Status post breast biopsy Bilateral with benign histology. Status post carpal tunnel release Status post cataract extraction Bilateral. Status post cholecystectomy Status post dilatation of esophageal stricture Status post laminectomy Lumbar spine. Status post LASIK surgery Status post rotator cuff repair Status post tonsillectomy Family History Family History Mother Cerebrovascular accident Diabetes mellitus Hypertension Sibling Cerebrovascular accident Other Acute myocardial infarction Social History Social History (Updated 07/27/21 @ 17:55 by Sunshine Rubio
--- NOTE | 2021-07-27 14:48 | ADMGEN ---
This patient, Dhara Harry, was admitted to Medical Room 343-01. Patient/family oriented to hospital policies and general routines including ID bracelet, bed and alarms, visiting hours, pain management, procedures, bathroom and other care routines, personal items, smoking policy, room service/diet, and visiting hours. Information on how to activate the Rapid Response Team has been discussed. Patient/Family are encouraged to report perceived risks to care and to ask questions if they do not understand what they are told or what they should do. Patient in bed resting comfortably at this time with no complaints. Will continue to monitor.
--- NOTE | 2021-07-27 16:31 | PM.CNCAR ---
Assessment and Plan Assessment and plan (1) Pericardial effusion: Code(s): I31.3 - Pericardial effusion (noninflammatory) Status: Acute Assessment and Plan: Patient's CT scans have shown a pericardial effusion over the last couple of years which is enlarging. She is not in tamponade clinically. No JVD, tachycardia etc. no history of TB or connective tissue disease. Perhaps related to her chronic kidney disease? Or idiopathic? Check an echo in the morning. (2) Acute on chronic diastolic CHF (congestive heart failure): Code(s): I50.33 - Acute on chronic diastolic (congestive) heart failure Status: Acute Assessment and Plan: Patient's apparently reported increasing shortness of breath as well as orthopnea and her proBNP is 2000 so she may have a mild exacerbation of chronic diastolic heart failure. Will check Echo for signs of tamponade before increasing her diuretic (3) CAD (coronary artery disease): Code(s): I25.10 - Atherosclerotic heart disease of jamul coronary artery without angina pectoris Status: Acute Assessment and Plan: History of CAD, Left anterior descending stents, with atypical chest pain. appears stable. Currently not taking any aspirin or anticoagulation; not sure if this is intentional due to anemia or aspirin just fell off of her medicine list. Add aspirin 81 mg daily Continue Entresto, atorvastatin (4) History of atrial fibrillation without current medication: Code(s): Z86.79 - Personal history of other diseases of the circulatory system Status: Acute Assessment and Plan: Patient carries a history of paroxysmal atrial fibrillation as well as SVT. These do not appear to be a problem clinically recently. Not on any beta-wilmer or anticoagulant. (5) Chronic abdominal pain: Code(s): R10.9 - Unspecified abdominal pain; G89.29 - Other chronic pain Status: Acute Assessment and Plan: Exam suggests some abdominal gas, nder if elated to her iron tablets, evaluation and treatment per hospitalist. History of Present Illness History of Present Illness Consult date/time: 07/27/21 16:31 Requesting physician: Sharron Gunderson MD Reason For Visit: body pain Narrative: Date of service 07/27/2021 Mrs. susana Harry is an 81 old white female who is a longstanding patient of Dr. Aj. She came to the emergency room with multiple complaints and we have been asked to see her at the request of Dr. Gunderson for advice and opinion regarding her shortness of breath and pericardial effusion , in consultation. The patient came to the ER on 07/05/2021 with atypical chest pain, workup was negative and her potassium of 2.6 was addressed. She came to the ER on 07/25/2021 with complaints of epigastric discomfort and bloating. She was given a GI cocktail. Her potassium of 2.7 was addressed. She came back to the ER today again with complaints of abdominal bloating and pain. The patient herself is a poor historian, telling me she came back because they they sent me here. Her is not available by phone. Per ER notes she was having some burning pain from her throat to her pelvis, abdominal pain and bloating, and shortness of breath for 2 days, sleeping in a chair. The patient currently states that she is not have any PND orthopnea, but some DOBSON with some ADLs such as bathing. However she is more concerned with her abdominal pain, gas and bloating. CT of the abdomen and pelvis today , done for abdominal pain and diarrhea, showed worsening of a large pericardial effusion. She admits to some epigastric heaviness which bothers her more in the evening. Patient reports a history of thyroid disease but no connective tissue disease or tuberculosis. No history of cancer. The patient has a history of SVT and paroxysmal atrial fibrillation. She has a history of CAD with cardiac cathet
[2021-07-27] MEDS: MORPHINE SULFATE (*CRX) 2 MG/ML INJ 1 MG IV PUSH (23:50)
[2021-07-28] VITALS (9 sets, daily range): BP systolic 120–157; BP diastolic 77–90; PULSE 67–88; RESP 16–18; TEMP 36.1–36.2; O2SAT 94–98
[2021-07-28] MEDS: ALPRAZolam (*CRX) 0.25 MG TABLET PO ×2 (02:20→09:15)
[2021-07-28] MEDS: LEVOTHYROXINE SODIUM 125 MCG TABLET PO (05:16)
[2021-07-28 05:54] LABS: Basophils Percent Auto 0.7 % (0.2-1.2); Eosinophils Absolute Auto 0.1 K/mm3 (0-0.3); Eosinophils Percent Auto 2.4 % (0-4.4); Hematocrit 30.7 % (37.0-47.0); Hemoglobin 9.9 g/dL (12.0-15.0); Immature Granulocyte Absolute 0.02 K/mm3 (0.00-0.031); Immature Granulocyte Percent A 0.5 % (0-0.5); Lymphocytes Absolute Auto 0.86 K/mm3 (0.9-3.2); Lymphocytes Percent Auto 20.8 % (18.3-44.2); Mean Corpuscular HGB Conc 32.2 g/dl (32-36); Mean Corpuscular Hemoglobin 32.1 pg (26-34); Mean Corpuscular Volume 99.7 fl (80-100); Mean Platelet Volume 10.9 fl (7.4-10.4); Monocytes Absolute Auto 0.3 K/mm3 (0.1-0.6); Monocytes Percent Auto 6.5 % (2.6-8.5); Neutrophils Absolute Auto 2.9 K/mm3 (1.3-6.7); Neutrophils Percent Auto 69.1 % (45.5-73.1); Platelet Count Result 198 k/mm3 (150-375); Red Blood Count 3.08 M/mm3 (4.2-5.4); Red Cell Distribution Width 13.2 % (11.5-14.5); White Blood Count 4.1 K/mm3 (4.5-10.0)
--- NOTE | 2021-07-28 06:00 | ECHO_ITS ---
Patient Info Name: Dhara Harry Age: 81 years : 1940 Gender: Female Ht: 66 in Wt: 132 lbs BSA: 1.67 m2 HR: 81 bpm BP: 157 / 90 mmHg Heart Rhythm: Sinus Rhythm Technical Quality: Good Exam Date: 07/28/2021 9:16 AM Exam Location: [facility] Pulmonary Exam Room: 343 Patient Status: Inpatient Admit Date: 07/27/2021 Staff Ordering Physician: Sharron Gunderson MD Surety Bond Agent: Laurie Bundy RDCS Attending Provider: Payal Segovia MD Referring Physician: Jalyn ABEL; Exam Type: CA echo doppler color flow Study Info Indications - pericardial effusion Complete two-dimensional, color flow and Doppler transthoracic echocardiogram is performed. Summary 1. Complete two-dimensional, color flow and Doppler transthoracic echocardiogram is performed. 2. Normal left ventricular size with mild concentric left ventricular hypertrophy. Severe global hypokinesis is present with no segmental wall motion abnormalities. Calculated ejection fraction is 30 8% but visually it appears to be in the 25-30% range. Diastolic dysfunction grade 2 is present. 3. Left atrial chamber dimension is severely enlarged. 4. There is mild aortic valve regurgitation. 5. There is mild mitral valve regurgitation. 6. There is mild tricuspid valve regurgitation. 7. No pulmonary hypertension, estimated pulmonary arterial systolic pressure is 32 mmHg. 8. Dilated inferior vena cava with >50% collapse upon inspiration consistent with elevated right atrial pressure, 10 mmHg. 9. There is a large pericardial effusion present, most of it posteriorly (2-3.5 cm thick posteriorly). There is right atrial and right ventricular collapse consistent with cardiac tamponade physiology. 10. Normal sinus rhythm. Left Ventricle Left ventricular chamber dimension is normal. Left ventricular systolic function is normal, estimated at 25-30%. There is mildly increased left ventricular wall thickness. Left ventricular septal wall motion is normal. The left ventricular diastolic function is grade II diastolic dysfunction. Right Ventricle Right ventricular chamber dimension is normal. Right ventricular systolic function is normal. Left Atria Left atrial chamber dimension is severely enlarged. Right Atria Right atrial chamber dimension is normal. Aortic Valve The aortic valve is trileaflet. There is no aortic valve sclerosis. There is no aortic valve stenosis. There is mild aortic valve regurgitation. Pulmonic Valve The pulmonic valve is normal. There is no pulmonic valve stenosis. There is no pulmonic regurgitation. Mitral Valve The mitral valve has thickened leaflets. There is no mitral valve stenosis. There is mild mitral valve regurgitation. Tricuspid Valve The tricuspid valve leaflets are normal. There is no significant tricuspid valve stenosis. There is mild tricuspid valve regurgitation. No pulmonary hypertension, estimated pulmonary arterial systolic pressure is 32 mmHg. Pericardium/Pleural The pericardium appears normal. There is a large pericardial effusion present, most of it posteriorly (2-3.5 cm thick posteriorly). There is right atrial and right ventricular collapse consistent with cardiac tamponade physiology. Inferior Vena Cava Dilated inferior vena cava with >50% collapse upon inspiration consistent with elevated right atrial pressure, 10 mmHg. Aorta The aortic root size at the sinus of Valsalva is normal. The prox ascending aorta size is normal.
[2021-07-28 06:52] LABS: Thyroid Stimulating Hormone Reflex > 100.000 uIU/mL (0.465-4.68)
[2021-07-28 07:00] LABS: Anion Gap 10 mmol/L (8-16); Blood Urea Nitrogen 15 mg/dL (7-17); Calcium 9.3 mg/dL (8.4-10.2); Carbon Dioxide 27 mmol/L (22-30); Chloride 95 mmol/L (98-107); Estimated CRCL calculation 26 ml/min; Estimated Glomerular Filt Rate 36; Glucose 93 mg/dL (65-110); Magnesium 2.2 mg/dL (1.6-2.3); Potassium 3.4 mmol/L (3.4-5.0); Sodium 132 mmol/L (137-145)
[2021-07-28 07:17] LABS: Free T4 Free Thyroxine Reflex < 0.07 ng/dL (0.78-2.19)
[2021-07-28] MEDS: ATORVASTATIN 40 MG TABLET PO (08:31)
[2021-07-28] MEDS: FERROUS SULFATE 324 MG TABLET PO (08:31)
[2021-07-28] MEDS: CHOLECALCIFEROL 1,000 UNITS TABLET 5000 UNITS PO (08:31)
[2021-07-28] MEDS: FUROSEMIDE 20 MG TABLET PO (08:32)
[2021-07-28] MEDS: POTASSIUM CHLORIDE 20 MEQ TABLET.ER PO (08:32)
[2021-07-28] MEDS: SACUBITRIL/VALSARTAN 24-26 MG TABLET 1 TAB PO ×2 (08:32→17:37)
[2021-07-28] MEDS: hydrALAZINE 10 MG TABLET PO (08:32)
[2021-07-28] MEDS: PANTOPRAZOLE 40 MG TABLET PO ×2 (08:32→17:37)
[2021-07-28] MEDS: prednisoLONE ACETATE 1% OPHTH 5 ML 1 DROP EACH EYE (08:33)
--- NOTE | 2021-07-28 09:37 | PM.IMPN ---
Progress Note: A&P Assessment and Plan (1) Pericardial effusion: Code(s): I31.3 - Pericardial effusion (noninflammatory) Status: Acute Assessment and Plan: CT scan shows an enlarging pericardial effusion No evidence to suggest cardiac tamponade Echocardiogram pending Continue with her current diuretic dose, pending echocardiogram Cardiology following, recommendations apprecaited Tele monitoring (2) Gastroesophageal reflux disease: Code(s): K21.9 - Gastro-esophageal reflux disease without esophagitis Status: Acute Assessment and Plan: Continue with pepcid (3) Acute on chronic diastolic CHF (congestive heart failure): Code(s): I50.33 - Acute on chronic diastolic (congestive) heart failure Status: Acute Assessment and Plan: proBNP ECHO pending Cardiology following, recommendations appreciated Continue aspirin, atorvastatin, and Entresto Strict I/Os (4) Coronary artery disease: Code(s): I25.10 - Atherosclerotic heart disease of [place] coronary artery without angina pectoris Status: Acute Assessment and Plan: Stable Continue ASA, statin, and Entresto (5) Paroxysmal atrial fibrillation: Code(s): I48.0 - Paroxysmal atrial fibrillation Status: Chronic Assessment and Plan: No BB or AC due to frequent falls and Hx of GI bleed Tele monitoring (6) Chronic abdominal pain: Code(s): R10.9 - Unspecified abdominal pain; G89.29 - Other chronic pain Status: Chronic Assessment and Plan: Unchanged (7) Chronic anemia: Code(s): D64.9 - Anemia, unspecified Status: Chronic Assessment and Plan: Hgb 9.9 Stable Transfuse if <7 Monitor (8) Elevated LFTs: Code(s): R79.89 - Other specified abnormal findings of blood chemistry Status: Acute Assessment and Plan: Chronic Appears stable Monitor Additional Plan Lane comes in today with multiple complaints including increasing shortness of breath on lesser and lesser exertion over the past couple of days as well as orthopnea. Code status: FULL CODE Disposition: pending hospital course Subjective Date/time seen: 07/28/21 09:37 Interval history: pt seen and evaluated; labs, vs, diagnostic reports and consult notes reviewed; pt denies any CP; does endorse some SOB Review of Systems Review of Systems: All systems reviewed & are unremarkable except as noted in HPI and below Exam Const: General: no acute distress, alert and awake Orientation/consciousness: patient oriented x3 HENMT: Head: normocephalic and atraumatic Face and sinus: face symmetric Mouth: Yes Normal oral and palatal mucosa present Eyes: EOM: EOMs intact bilaterally Neck: Neck: full ROM, trachea midline and no JVD Chest: Chest palpation & inspection: normal inspection of the chest Resp: Auscultation: clear to auscultation bilaterally and diminished lung sounds (bilateral bases) Cardio: Rate: regular rate Rhythm: regular rhythm Heart sounds: S1 normal heart sound present and S2 normal heart sound present GI: Inspection: normal to inspection GI Palp: Yes Soft to palpation Percussion: Yes normal to percussion Auscultation: normal bowel sounds : General: Yes no CVA tenderness Skin: General skin exam: normal color Rashes: no rashes Neuro: General: patient oriented x3 Cranial nerves: Yes Equal, round and reactive pupils present Speech: normal speech Extrem: General: no clubbing, cyanosis or edema Psych: Appearance: grossly normal Affect: normal affect Judgement: Good judgement present (Psych) Objective Data Vital Signs Vital Signs: Vital Signs - 24 hr 07/27/21 11:58 07/27/21 13:10 07/27/21 14:01 Temperature 36.6 C Pulse Rate 75 79 75 Respiratory Rate 18 16 16 Blood Pressure 154/89 H 156/98 H 148/95 H Pulse Oximetry 99 99 99 07/27/21 15:17 07/27/21 16:00 07/27/21 19:42 Temperature 35.8 C L 36.9 C Pulse Rate 70 78 71
--- NOTE | 2021-07-28 19:14 | PM.PNCARD ---
Progress Note: A&P Assessment and Plan (1) Pericardial effusion: Code(s): I31.3 - Pericardial effusion (noninflammatory) Status: Acute Assessment and Plan: Enlarging pericardial effusion, with tamponade physiology by echo. She is not in severe tamponade clinically. No JVD, tachycardia, but she does have some mild CHF which is probably related to the tamponade physiology. Caused by her severe hypothyroidism. (Sed rate, FRANCIA and rheumatoid factor are pending also.) Follow closely for any signs of decompensation, severe tamponade, etc. May be best treated with pericardiocentesis or pericardial window as treatment of the hypothyroidism may take a while to be effective. No emergency or urgency at the moment as pt is hemodynamically stable. Discussed with Dr. Aj who will review in the morning but will leave pt NPO for now. (2) Hypothyroidism: Code(s): E03.9 - Hypothyroidism, unspecified Status: Chronic Assessment and Plan: History of hypothyroidism, with a TSH greater than 100 in October 2020. At that time she was instructed to increase her levothyroxine from 125 mcg to 175 mcg daily. However, she is still taking 125 mcg daily. Will increase again to 175 mcg daily. (3) Acute on chronic combined systolic and diastolic heart failure: Code(s): I50.43 - Acute on chronic combined systolic (congestive) and diastolic (congestive) heart failure Status: Acute Assessment and Plan: Patient's apparently reported increasing shortness of breath as well as orthopnea and her proBNP is 2000 so she may have a mild exacerbation of chronic systolic and diastolic heart failure. Probably related to the tamponade physiology. (4) Cardiomyopathy: Code(s): I42.9 - Cardiomyopathy, unspecified Status: Acute Assessment and Plan: Patient has a history of cardiomyopathy with improvement of LV function. However this echo shows her EF has dropped to 25-30%, possibly related to her hypothyroidism. Continue guideline directed therapy with Entresto etc. Add BB once tamponade situation has resolved. (5) CAD (coronary artery disease): Code(s): I25.10 - Atherosclerotic heart disease of [place] coronary artery without angina pectoris Status: Acute Assessment and Plan: History of CAD, Left anterior descending stents, with atypical chest pain. appears stable. Currently not taking any aspirin or anticoagulation; not sure if this is intentional due to anemia or aspirin just fell off of her medicine list. Added aspirin 81 mg daily Continue Entresto, atorvastatin (6) History of atrial fibrillation without current medication: Code(s): Z86.79 - Personal history of other diseases of the circulatory system Status: Acute Assessment and Plan: Patient carries a history of paroxysmal atrial fibrillation as well as SVT. These do not appear to be a problem clinically recently. Not on any beta-wilmer or anticoagulant. (7) Chronic abdominal pain: Code(s): R10.9 - Unspecified abdominal pain; G89.29 - Other chronic pain Status: Acute Assessment and Plan: Exam suggests some abdominal gas, nder if elated to her iron tablets, evaluation and treatment per hospitalist. Subjective Date/time seen: 07/28/21 19:14 Interval history: Follow-up for pericardial effusion, mild acute on chronic diastolic CHF. Also history of CAD,, PAF, PSVT, and chronic abdominal pain. Date of service 07/28/2021: Patient without major complaints, abdominal pain better. Her echo showed right atrial and right ventricular collapse consistent with pericardial tamponade. Also her TSH returned greater than 100. Vital signs remained stable. No shortness of breath. Review of Systems Constitutional: Constitutional: Reports lethargy Eyes: Eyes: Reports no additional eye complaints ENT: Denies epistaxis Cardiovascular: Cardiovasc
[2021-07-28] MEDS: MORPHINE SULFATE (*CRX) 2 MG/ML INJ 1 MG IV PUSH (20:05)
[2021-07-28] MEDS: traZODone HCL 50 MG TABLET 100 MG PO (20:05)
[2021-07-29] VITALS: PULSE 71
[2021-07-29] MEDS: MORPHINE SULFATE (*CRX) 2 MG/ML INJ 1 MG IV PUSH (03:25)
[2021-07-29 04:00] VITALS: PULSE 73
[2021-07-29 06:00] VITALS: BP 121/55; PULSE 69; RESP 17; TEMP 36.1; O2SAT 95
[2021-07-29] MEDS: LEVOTHYROXINE SODIUM 50 MCG TABLET PO (06:10)
[2021-07-29] MEDS: LEVOTHYROXINE SODIUM 125 MCG TABLET PO (06:10)
[2021-07-29 06:22] LABS: Hematocrit 26.2 % (37.0-47.0); Hemoglobin 8.7 g/dL (12.0-15.0); Mean Corpuscular HGB Conc 33.2 g/dl (32-36); Mean Corpuscular Volume 96.3 fl (80-100); Mean Platelet Volume 10.5 fl (7.4-10.4); Platelet Count Result 204 k/mm3 (150-375); Red Blood Count 2.72 M/mm3 (4.2-5.4); Red Cell Distribution Width 13.3 % (11.5-14.5); White Blood Count 3.5 K/mm3 (4.5-10.0)
[2021-07-29 06:34] LABS: Rheumatoid Factor < 8.6 IU/ML (<12)
[2021-07-29 06:53] LABS: Anion Gap 5 mmol/L (8-16); Blood Urea Nitrogen 16 mg/dL (7-17); Calcium 8.7 mg/dL (8.4-10.2); Carbon Dioxide 29 mmol/L (22-30); Chloride 99 mmol/L (98-107); Estimated CRCL calculation 22 ml/min; Estimated Glomerular Filt Rate 29; Glucose 88 mg/dL (65-110); Potassium 3.5 mmol/L (3.4-5.0); Sodium 133 mmol/L (137-145)
[2021-07-29 08:00] VITALS: PULSE 97
[2021-07-29 08:18] LABS: Erythrocyte Sedimentation Rate 22 mm/hr (0-20)
[2021-07-29] MEDS: prednisoLONE ACETATE 1% OPHTH 5 ML 1 DROP EACH EYE (08:45)
[2021-07-29] MEDS: FERROUS SULFATE 324 MG TABLET PO (08:46)
[2021-07-29] MEDS: hydrALAZINE 10 MG TABLET PO (08:46)
[2021-07-29] MEDS: POTASSIUM CHLORIDE 20 MEQ TABLET.ER PO (08:46)
[2021-07-29] MEDS: ATORVASTATIN 40 MG TABLET PO (08:46)
[2021-07-29] MEDS: SACUBITRIL/VALSARTAN 24-26 MG TABLET 1 TAB PO (08:47)
[2021-07-29] MEDS: PANTOPRAZOLE 40 MG TABLET PO (08:47)
[2021-07-29] MEDS: CHOLECALCIFEROL 1,000 UNITS TABLET 5000 UNITS PO (08:47)
[2021-07-29] MEDS: FUROSEMIDE 20 MG TABLET PO (08:47)
--- NOTE | 2021-07-29 11:09 | PM.PNCARD ---
Progress Note: A&P Additional Plan 81-year-old lady with: Coronary artery disease with previous high risk percutaneous revascularization as detailed in many previous notes. Current issue is that she has a chronic but somewhat enlarging pericardial effusion that appears to be the result of hypothyroidism. The echo results notwithstanding there is absolutely no physical exam evidence of cardiac tamponade physiology and therefore there is no indication to perform a pericardiocentesis. I will follow this effusion and the outpatient setting in the office as she becomes euthyroid. Discharge at any time is okay with me. Please call me if you have any questions Nathaniel Aj MD [facility] Subjective Date/time seen: Date of service:07/29/21 11:09 Interval history: Follow-up for pericardial effusion, mild acute on chronic diastolic CHF. Also history of CAD,, PAF, PSVT, and chronic abdominal pain. Date of service 07/28/2021: Patient without major complaints, abdominal pain better. Her echo showed right atrial and right ventricular collapse consistent with pericardial tamponade. Also her TSH returned greater than 100. Vital signs remained stable. No shortness of breath. Date of service 07/29/2021: Patient feels reasonably well today her abdominal pain has improved significantly. Long discussion with the patient about her pericardial effusion. It is clear that she does not have any physical exam evidence of cardiac tamponade as Dr. patel well detailed in her consultation note. It seems relatively clear that this effusion is probably related to her newly diagnosed hypothyroidism. There is no indication to perform a pericardiocentesis in the absence of any findings of tamponade and this chronic effusion is probably related to her thyroid disorder. It should generally slowly improve as she becomes euthyroid. Exam Narrative: Older lady, hard of hearing, no distress Const: General: comfortable and no acute distress HENMT: General nose exam: no epistaxis Eyes: EOM: EOMs intact bilaterally Neck: Neck: supple and no JVD Thyroid: thyroid normal Carotids: no bruits Lymphatic: lymphadenopathy not noted Resp: Effort & Inspection: normal respiratory effort Auscultation: clear to auscultation bilaterally Cardio: Rate: regular rate and not tachycardic Rhythm: regular rhythm Heart sounds: no murmurs and no rubs GI: Inspection: non-distended Auscultation: normal bowel sounds Other: Patient does have a slightly distended abdomen with some tympany Skin: General skin exam: normal color and no rashes or lesions noted Neuro: Cranial nerves: No Normal hearing present Cognition (Neuro): normal cognition and abnormal cognition Speech: normal speech and No Abnormal speech present Other: suspect some memory loss, poor historian Extrem: General: no edema and no pedal edema Other: good disallowed pedis pulses Psych: Mental Status: mental status grossly normal Affect: normal affect Other: perseverating historian Objective Data Vital Signs Vital Signs: Vital Signs - 24 hr 07/28/21 12:00 07/28/21 16:00 07/28/21 17:47 Temperature Pulse Rate 68 82 82 Respiratory Rate Blood Pressure 120/89 Pulse Oximetry 07/28/21 19:16 07/28/21 20:00 07/29/21 00:00 Temperature 36.2 C L Pulse Rate 73 69 71 Respiratory Rate 18 Blood Pressure 131/77 Pulse Oximetry 98 07/29/21 04:00 07/29/21 06:00 07/29/21 08:00 Temperature 36.1 C L Pulse Rate 73 69 97 Respiratory Rate 17 Blood Pressure 121/55 L Pulse Oximetry 95 Intake/Output Intake/Output: Intake & Output 07/26/21 07/27/21 07/28/21 07/29/21 23:59 23:59 23:59 23:59 Intake Total 355 870 100 Output Total 925 8302 500 Balance -422 -[phone] -628 Meds/Results Medications: Active Medications Generic Name Dose Route Start Last Admin Trade Name Freq PRN Reason Stop Dose Admin Acyclovir 200 mg 07/27/21 23:48 Acyclovir 200 Mg Cap
--- NOTE | 2021-07-29 12:21 | PM.DS ---
DS: Admitting Diagnosis Discharge Date 07/29/2021 Admitting Diagnosis Pericardial effusion DS: Discharge Diagnosis Discharge Diagnosis (1) Pericardial effusion: Code(s): I31.3 - Pericardial effusion (noninflammatory) Status: Acute Assessment and Plan: CT scan shows an enlarging pericardial effusion No evidence to suggest cardiac tamponade S/p Echocardiogram Continue with her current diuretic dose, pending echocardiogram Cardiology following, recommendations appreciated Suspect due to new diagnosis of hypothyroidism and no need for percardiocentesis Tele monitoring (2) Gastroesophageal reflux disease: Code(s): K21.9 - Gastro-esophageal reflux disease without esophagitis Status: Acute Assessment and Plan: Continue with pepcid (3) Acute on chronic diastolic CHF (congestive heart failure): Code(s): I50.33 - Acute on chronic diastolic (congestive) heart failure Status: Acute Assessment and Plan: proBNP ECHO pending Cardiology following, recommendations appreciated Continue aspirin, atorvastatin, and Entresto Strict I/Os (4) Coronary artery disease: Code(s): I25.10 - Atherosclerotic heart disease of [place] coronary artery without angina pectoris Status: Acute Assessment and Plan: Stable Continue ASA, statin, and Entresto (5) Paroxysmal atrial fibrillation: Code(s): I48.0 - Paroxysmal atrial fibrillation Status: Chronic Assessment and Plan: No BB or AC due to frequent falls and Hx of GI bleed Tele monitoring (6) Chronic abdominal pain: Code(s): R10.9 - Unspecified abdominal pain; G89.29 - Other chronic pain Status: Chronic Assessment and Plan: Unchanged (7) Chronic anemia: Code(s): D64.9 - Anemia, unspecified Status: Chronic Assessment and Plan: Hgb 9.9 Stable Transfuse if <7 Monitor (8) Elevated LFTs: Code(s): R79.89 - Other specified abnormal findings of blood chemistry Status: Acute Assessment and Plan: Chronic Appears stable Monitor DS: Summary Hospital Course Hospital Course: 81-year-old female with multiple medical problems including congestive heart failure, chronic kidney disease, chronic anemia, paroxysmal atrial fibrillation, hypertension, hypothyroidism, coronary artery disease previously referred for CABG however deemed to be too frail, and several other comorbidities. Dhara was admitted after presenting to the ED with multiple complaints including increasing shortness of breath on lesser and lesser exertion over the past couple of days as well as orthopnea. She was also complaining of her chronic abdominal pain, which is unchanged. CT scan shows an enlarging pericardial effusion and she is being admitted in this setting. Clinically there is no evidence to suggest cardiac tamponade. She underwent Echocardiogram and her current diuretic dose was continued Cardiology has seen the patient, recommendations are to follow patient on an outpatient basis and monitor. She is hemodynamically stable and will discharge home with home health care. Time Spent with Patient Time attestation: Total time spent providing and/or coordinating discharge services: Time spent: Greater than 30 minutes Exam Const: General: no acute distress, alert and awake Orientation/consciousness: patient oriented x3 HENMT: Head: normocephalic and atraumatic Face and sinus: face symmetric Mouth: Yes Normal oral and palatal mucosa present Eyes: Pupils: Equal, round and reactive pupils present EOM: EOMs intact bilaterally Neck: Neck: full ROM, trachea midline and no JVD Chest: Chest palpation & inspection: normal inspection of the chest Resp: Auscultation: clear to auscultation bilaterally and diminished lung sounds (bilateral bases) Cardio: Rate: regular rate Rhythm: regular rhythm Heart sounds: S1 normal heart sound present and S2 normal heart sound present G
== END 2021-07-29 13:27 | disposition home health service (06) ==
LOC: ANHED 12:02 → ANH3MED 15:40
PROVIDERS: Internal Medicine Cardiovascular Disease; Nurse Practitioner Adult Health; Physician Assistant; Admitting Provider Hospitalist; Emergency Provider General Practice; PCP Family Medicine; Visit Provider Internal Medicine
DX: I31.3 Pericardial effusion (noninflammatory) (principal); I13.0 Hypertensive heart and chronic kidney disease with heart failure and stage 1 through stage 4 chronic kidney disease, or unspecified chronic kidney disease; I50.33 Acute on chronic diastolic (congestive) heart failure; N18.30 Chronic kidney disease, stage 3 unspecified; I25.10 Atherosclerotic heart disease of native coronary artery without angina pectoris; R06.02 Shortness of breath; K21.9 Gastro-esophageal reflux disease without esophagitis; D64.9 Anemia, unspecified; R79.89 Other specified abnormal findings of blood chemistry; R10.9 Unspecified abdominal pain
CPT/HCPCS: 36415; 71045; 74176; 80048; 80053; 83690; 83735; 83880; 84439; 84443; 84484; 85025; 85027; 85610; 85652; 85730; 86038; 86039; 86430; 93005; 93306; 96375; 96376; 99285; A9270; G0378; J0131; J2270

== ENCOUNTER 2021-08-06 08:33 | Emergency (ER) | payer MEDICARE, SELFPAY ==
[2021-08-06] VITALS (12 sets, daily range): BP systolic 142–158; BP diastolic 100–111; PULSE 78–91; RESP 13–25; TEMP 36.7; O2SAT 91–97
--- NOTE | ~2021-08-06 | XR_ITS ---
EXAMINATION: XR chest 2V EXAM DATE: 08/06/2021 09:20 INDICATION: Chest pain, CHF. TECHNIQUE: Frontal and lateral projections of the chest obtained and reviewed. Comparison is made to prior examination from 07/27/2021. FINDINGS: Severe cardiomegaly and/or pericardial effusion unchanged. Small pleural effusions. No con fluent consolidation or pneumothorax. There are bony degenerative changes. There is aortic arterioscl erosis. There is no significant interval change. IMPRESSION: Severe cardiomegaly and/or pericardial effusion. Small pleural effusions. Reviewed, dictated and finalized at location A. IMPRESSION: Severe cardiomegaly and/or pericardial effusion. Small pleural eff usions.
--- NOTE | 2021-08-06 08:40 | ECG_ITS ---
Measurements Intervals [place] Rate: 85 P: VT: 0 QRS: -13 QRSD: 105 T: 0 QT: 225 QTc: 268 Interpretive Statements SINUS RHYTHM ATRIAL PREMATURE COMPLEXES AND VENTRICULAR COUPLETS ANTEROSEPTAL INFARCT, AGE INDETERMINATE CONSIDER INFERIOR INFARCT, AGE INDETERMINATE BORDERLINE ST-T WAVE ABNORMALITY- HIGH LATERAL LEADS BASELINE ARTIFACT- II, III, AVF, V4-V6 ABNORMAL ECG Electronically Signed On 08-06-2021 15:54:06 CDT by Marlon Joe D.O.
[2021-08-06 09:05] LABS: Basophils Percent Auto 0.7 % (0.2-1.2); Eosinophils Absolute Auto 0.1 K/mm3 (0-0.3); Eosinophils Percent Auto 1.7 % (0-4.4); Hematocrit 27.6 % (37.0-47.0); Hemoglobin 8.9 g/dL (12.0-15.0); Immature Granulocyte Absolute 0.02 K/mm3 (0.00-0.031); Immature Granulocyte Percent A 0.5 % (0-0.5); Lymphocytes Percent Auto 19.8 % (18.3-44.2); Mean Corpuscular HGB Conc 32.2 g/dl (32-36); Mean Corpuscular Volume 99.3 fl (80-100); Mean Platelet Volume 10.3 fl (7.4-10.4); Monocytes Absolute Auto 0.4 K/mm3 (0.1-0.6); Monocytes Percent Auto 9.4 % (2.6-8.5); Neutrophils Absolute Auto 2.7 K/mm3 (1.3-6.7); Neutrophils Percent Auto 67.9 % (45.5-73.1); Platelet Count Result 200 k/mm3 (150-375); Red Blood Count 2.78 M/mm3 (4.2-5.4); Red Cell Distribution Width 13.8 % (11.5-14.5)
[2021-08-06 09:17] LABS: Alanine Aminotransferase 29 U/L (4-35); Albumin Level 4.7 g/dL (3.5-5.1); Alkaline Phosphatase 56 U/L (38-126); Anion Gap 8 mmol/L (8-16); Aspartate Amino Transferase 62 U/L (14-36); Bilirubin,Total 0.7 mg/dL (0.2-1.3); Blood Urea Nitrogen 15 mg/dL (7-17); Calcium 9.3 mg/dL (8.4-10.2); Carbon Dioxide 29 mmol/L (22-30); Chloride 99 mmol/L (98-107); Estimated CRCL calculation 23 ml/min; Estimated Glomerular Filt Rate 33; Glucose 112 mg/dL (65-110); Lipase 145 U/L (23-300); Potassium 3.1 mmol/L (3.4-5.0); Sodium 136 mmol/L (137-145)
--- NOTE | 2021-08-06 09:23 | ED.CHESTPAIN ---
HPI - Chest Pain General Chief Complaint: Chest Pain Stated Complaint: abd pain Time Seen by Provider: 08/06/21 08:39 Source: patient History of Present Illness HPI narrative: Patient presents with chest and abdominal pain. Pain is a burning sensation. Patient reports to me that symptoms just started this morning when she woke up she has been walking around to try and alleviate her symptoms. She has not attempted any of her home medications. Her pain seemed severe so she came to the ER for evaluation. She denies any fevers, cough, congestion, lightheadedness. Related Data Home Medications Medication Instructions Recorded Confirmed ferrous sulfate 325 mg (65 mg 325 mg PO DAILY 12/15/20 07/27/21 iron) tablet furosemide 20 mg tablet 20 mg PO QAM 12/15/20 07/27/21 nitroglycerin 0.4 mg sublingual 0.4 mg SUBLINGUAL PRN PRN 12/15/20 07/27/21 tablet Entresto 1 tablet PO BID 02/10/21 07/27/21 levothyroxine 125 mcg tablet 125 mcg PO DAILY 04/18/21 07/27/21 oxybutynin chloride 10 mg 10 mg PO DAILY 04/18/21 07/27/21 tablet,extended release 24 hr acyclovir 200 mg PO DAILY PRN 04/29/21 07/27/21 cholecalciferol (vitamin D3) 5,000 unit PO DAILY 04/29/21 07/27/21 hydralazine 10 mg PO DAILY 06/09/21 07/27/21 metoprolol succinate PO 06/09/21 06/24/21 prednisolone acetate [Pred Forte] 1 drp EACH EYE DAILY 06/09/21 07/27/21 trazodone 100 mg PO HS 06/09/21 07/27/21 Allergies Allergy/AdvReac Type Severity Reaction Status Date / Time Penicillins Allergy Unknown Rash Verified 08/03/21 13:24 Review of Systems Review of Systems: CONSTITUTIONAL: Denies fever, chills, or sweats. EYES: Denies visual changes, redness, or discharge. ENT: Denies rhinorrhea, congestion, sore throat, or otalgia. CARDIOVASCULAR: Denies palpitations, or edema. RESPIRATORY: Denies cough or dyspnea. GASTROINTESTINAL: Denies nausea, vomiting, or diarrhea. GENITOURINARY: Denies dysuria or hematuria. SKIN: Denies rash or itching. MUSCULOSKELETAL: Denies back pain, joint pain, or myalgia. NEUROLOGIC: Denies headache, numbness, dizziness, or weakness. PSYCHIATRIC: Denies anxiety or depression. All systems reviewed & are unremarkable except as noted in HPI and below PMFSH Past Medical History Medical History Anxiety and depression Cardiomyopathy Chronic anemia Chronic kidney disease, stage 3b Creatinine ranges between 1.5 and 2.00 Congestive heart failure Systolic and diastolic congestive heart failure Echo 11/27 showed EF 50%. Echo 01/14/2019: EF measured at 39%. September 2018 EF was 25%. Echo 12/02/2019 EF 50-55%. Grade 1 diastolic function. Coronary artery disease With multivessel surgical revascularization with PCI at [place] October 2017. Cardiac catheterization 10/17/2018-mild preserved intra-stent luminal diameter Depression with anxiety Detached retina Right-sided, x2. Frequent headaches Gastroesophageal reflux disease History of GI bleed Hyperlipidemia Hypertension Hypothyroidism Irritable bowel syndrome Ischemic cardiomyopathy Mitral valve prolapse Myasthenia gravis Questionable history of. Obstructive sleep apnea Ocular herpes zoster History of shingles to the left eye, on chronic antiviral therapy. Paroxysmal atrial fibrillation No longer on long-term anticoagulation due to history of falls. Peripheral neuropathy Rectal polyp Restless leg syndrome Shingles Solitary rectal ulcer syndrome Surgical History Surgical History Status post appendectomy Status post bilateral hip replacements Status post bilateral knee replacements Status post breast biopsy Bilateral with benign histology. Status post carpal tunnel release Status post cataract extraction Bilateral. Status post cholecystectomy Status post dilatation of esophageal stricture Status post laminectomy Lumbar spine. Status post LASIK surgery Status post rotator cuff repair
[2021-08-06] MEDS: SODIUM CHLORIDE 0.9% IV 1,000 ML 999 ML IV CONT (09:24)
[2021-08-06] MEDS: LIDOCAINE HCL 2% VISC SOLN 15 ML UDC 20 ML PO (09:25)
[2021-08-06] MEDS: PANTOPRAZOLE SODIUM IV 40 MG VIAL IV PUSH (09:25)
[2021-08-06] MEDS: FAMOTIDINE 20 MG/2 ML VIAL IV PUSH (09:25)
[2021-08-06] MEDS: MAG HYDROX/AL HYDROX/SIMETH 30 ML UDC PO (09:26)
[2021-08-06 09:28] LABS: Troponin I 0.019 ng/mL (0.000-0.034)
[2021-08-06 10:06] LABS: Add Urine Microscopic? YES; Appearance Urine Cloudy (Clear); Bilirubin Urine Negative (Negative); Blood Urine Negative (Negative); Color Urine Yellow (Yellow); Glucose Urine UA Negative (Negative); Ketones Urine Negative (Negative); Leukocyte Esterase Ur 1+ LEU/UL (Negative); Nitrate Urine Positive (Negative); Protein Urine 2+ mg/dL (Negative); Specific Grav Ur 1.008 (1.001-1.035); Squamous Epithelial Cell Urine Few /hpf (Few); Urobilinogen Urine Negative mg/dL (<2.0); WBC Urine 21-30 /hpf
== END 2021-08-06 11:44 | disposition home or self-care (01) ==
PROVIDERS: Emergency Provider Emergency Medicine; PCP Family Medicine
DX: N39.0 Urinary tract infection, site not specified (principal); K29.70 Gastritis, unspecified, without bleeding; I13.0 Hypertensive heart and chronic kidney disease with heart failure and stage 1 through stage 4 chronic kidney disease, or unspecified chronic kidney disease; N18.32 Chronic kidney disease, stage 3b; I50.40 Unspecified combined systolic (congestive) and diastolic (congestive) heart failure; D63.1 Anemia in chronic kidney disease; I25.10 Atherosclerotic heart disease of native coronary artery without angina pectoris; E78.5 Hyperlipidemia, unspecified; I48.0 Paroxysmal atrial fibrillation; I25.5 Ischemic cardiomyopathy; E03.9 Hypothyroidism, unspecified; G25.81 Restless legs syndrome; G47.33 Obstructive sleep apnea (adult) (pediatric); K58.9 Irritable bowel syndrome, unspecified; F41.8 Other specified anxiety disorders; K62.6 Ulcer of anus and rectum; K21.9 Gastro-esophageal reflux disease without esophagitis; G62.9 Polyneuropathy, unspecified; Z98.42 Cataract extraction status, left eye; Z98.41 Cataract extraction status, right eye; Z96.643 Presence of artificial hip joint, bilateral; Z96.653 Presence of artificial knee joint, bilateral; Z95.5 Presence of coronary angioplasty implant and graft; I49.1 Atrial premature depolarization; R00.8 Other abnormalities of heart beat; R94.31 Abnormal electrocardiogram [ECG] [EKG]; I51.7 Cardiomegaly
CPT/HCPCS: 36415; 71046; 80053; 81001; 83690; 84484; 85025; 87077; 87086; 87186; 93005; 96361; 96365; 96375; 99284; A9270; C9113; J0131; J0696; J7030

== ENCOUNTER 2021-08-08 12:24 | Inpatient (IN) | payer MEDICARE, SELFPAY ==
[2021-08-08] VITALS (28 sets, daily range): BP systolic 137–157; BP diastolic 90–121; PULSE 70–108; RESP 16–28; TEMP 36.3–36.6; O2SAT 78–100; BMI 20.2
--- NOTE | ~2021-08-08 | XR_ITS ---
EXAMINATION: XR chest 1V portable INDICATION: Transient alteration of awareness TECHNIQUE: Portable AP chest at 1305 hours COMPARISON: 08/06/2021 FINDINGS: Cardiomegaly is noted. There are small pleural effusions. Minimal airspace opacities are pr esent in the lung bases. There is no pneumothorax. IMPRESSION: 1. Cardiomegaly. 2. Small pleural effusions. Reviewed, dictated and finalized at location B.
--- NOTE | ~2021-08-08 | CT_ITS ---
EXAMINATION: CT chest abdomen pelvis wo con EXAM DATE: 08/08/2021 15:00 INDICATION: Severe chest, abdominal pain, near syncope. Low GFR. TECHNIQUE: Spiral CT of the chest, abdomen and pelvis was performed without contrast. Axial, paredes l and sagittal images chest, abdomen and pelvis were reviewed. Coronal maximum intensity pixel image s of chest reviewed. The dose-length product (DLP) for this examination was 553.55 mGy-cm. The expo sure was tailored according to patient size (auto mA exposure control), and iterative reconstruction (ASIR) was used as additional dose reduction technique. Comparison is made to prior examination from 07/27/2021. FINDINGS: CHEST: There is moderate cardiomegaly, and large pericardial effusion unchanged (up to 4 cm in thick ness). The interventricular septum is perceptible, suggesting patient is anemic. The main, central pu lmonary arteries are dilated which can indicate elevated pulmonary arterial pressure, pulmonary arter ial hypertension. There is left basilar segmental atelectasis, right basilar subsegmental atelectasi s. No evidence of superimposed pneumonia. There are trace pleural effusions. Tracheobronchial tree is patent. There is no mediastinal, hilar or axillary lymphadenopathy. There is no pneumothorax. Dense left anterior descending and circumflex coronary artery calcifications and/or stents. Midline common carotid arteries at the thoracic inlet. ABDOMEN PELVIS: The liver, spleen, adrenal glands and pancreas are unremarkable. Gallbladder not farzad ntified, patient likely has had cholecystectomy. Multiple renal lesions likely cysts and hemorrhagic cyst correlating with prior studies. There is no nephrolithiasis or hydronephrosis. Small hyperdense renal lesions consistent with hemorrhagic cyst. Pelvis, bladder poorly evaluated due to artifact fro m bilateral hip replacements. There is possible hysterectomy. There is no retroperitoneal or pelvic lymphadenopathy. There is mild to moderate scattered arteriosclerotic disease. There are no findings to suggest appendicitis. The stomach and small bowel are unremarkable. There is expected amount of colonic stool. There is moderate sigmoid colonic diverticulosis. There is no a djacent inflammatory change to suggest diverticulitis. There are no osteoblastic or osteolytic lesion s identified. Mild to moderate lumbar levoscoliosis. Moderate to severe mid and lower lumbar disc dis ease. IMPRESSION: 1. Moderate cardiomegaly, large pericardial effusion unchanged. Pulmonary arterial hypertension. 2. Left lower lobe segmental, right lower lobe subsegmental atelectasis. 3. Moderate sigmoid diverticulosis. 4. No acute intra-abdominal findings. Reviewed, dictated and finalized at location A. IMPRESSION: 1. Moderate cardiomegaly, large pericardial effusion unchanged. Pulmonary allyson rial hypertension. 2. Left lower lobe segmental, right lower lobe subsegmental atelectasis. 3. Moderate sigmoid diverticulosis. 4. No acute intra-abdominal findings.
--- NOTE | 2021-08-08 12:38 | ED.SYNCOPE ---
HPI - Syncope General Chief Complaint: Chest Pain Stated Complaint: Near-syncope Time Seen by Provider: 08/08/21 12:29 Source: patient Mode of arrival: ambulatory Limitations: no limitations History of Present Illness HPI narrative: Patient is an 81-year-old female with a complex medical history, multiple medical problems including congestive heart failure, chronic kidney disease, anemia, paroxysmal atrial fibrillation, hypertension, hypothyroidism, coronary artery disease, presenting for evaluation of chest pain, abdominal pain and near syncopal event. Patient states that she was sitting down, doing no specific activity when she suddenly felt a sharp, burning pain in her chest and abdomen. Patient with associated nausea, shortness of breath, lightheadedness. Patient did not pass out but felt as if she was going to. Patient brought her in for evaluation due to her symptoms. She states that the abdominal pain, chest pain, nausea persists. She reports she currently feels lightheaded and feels generally unwell. She denies fever, chills, cough. No rhinorrhea or congestion. No dysuria or hematuria. No back pain. Related Data Home Medications Medication Instructions Recorded Confirmed ferrous sulfate 325 mg (65 mg 325 mg PO DAILY 12/15/20 07/27/21 iron) tablet furosemide 20 mg tablet 20 mg PO QAM 12/15/20 07/27/21 nitroglycerin 0.4 mg sublingual 0.4 mg SUBLINGUAL PRN PRN 12/15/20 07/27/21 tablet Entresto 1 tablet PO BID 02/10/21 07/27/21 levothyroxine 125 mcg tablet 125 mcg PO DAILY 04/18/21 07/27/21 oxybutynin chloride 10 mg 10 mg PO DAILY 04/18/21 07/27/21 tablet,extended release 24 hr acyclovir 200 mg PO DAILY PRN 04/29/21 07/27/21 cholecalciferol (vitamin D3) 5,000 unit PO DAILY 04/29/21 07/27/21 hydralazine 10 mg PO DAILY 06/09/21 07/27/21 metoprolol succinate PO 06/09/21 06/24/21 prednisolone acetate [Pred Forte] 1 drp EACH EYE DAILY 06/09/21 07/27/21 trazodone 100 mg PO HS 06/09/21 07/27/21 Allergies Allergy/AdvReac Type Severity Reaction Status Date / Time Penicillins Allergy Unknown Rash Verified 08/08/21 13:41 Review of Systems Review of Systems: CONSTITUTIONAL: Denies fever, chills, or sweats. EYES: Denies visual changes, redness, or discharge. ENT: Denies rhinorrhea, congestion, sore throat, or otalgia. CARDIOVASCULAR: Reports chest pain without palpitations or edema RESPIRATORY: Reports cough and shortness of breath GASTROINTESTINAL: Reports abdominal pain and nausea GENITOURINARY: Denies dysuria or hematuria. SKIN: Denies rash or itching. MUSCULOSKELETAL: Denies back pain, joint pain, or myalgia. NEUROLOGIC: Denies headache, numbness, reports feeling diffusely weak PMFSH Past Medical History Medical History Anxiety and depression Cardiomyopathy Chronic anemia Chronic kidney disease, stage 3b Creatinine ranges between 1.5 and 2.00 Congestive heart failure Systolic and diastolic congestive heart failure Echo 11/27 showed EF 50%. Echo 01/14/2019: EF measured at 39%. September 2018 EF was 25%. Echo 12/02/2019 EF 50-55%. Grade 1 diastolic function. Coronary artery disease With multivessel surgical revascularization with PCI at [place] October 2017. Cardiac catheterization 10/17/2018-mild preserved intra-stent luminal diameter Depression with anxiety Detached retina Right-sided, x2. Frequent headaches Gastroesophageal reflux disease History of GI bleed Hyperlipidemia Hypertension Hypothyroidism Irritable bowel syndrome Ischemic cardiomyopathy Mitral valve prolapse Myasthenia gravis Questionable history of. Obstructive sleep apnea Ocular herpes zoster History of shingles to the left eye, on chronic antiviral therapy. Paroxysmal atrial fibrillation No longer on long-term anticoagulation due to history of falls. Peripheral neuropathy Rectal polyp Restless leg syndrome Shingles Solitary rectal ulcer syndrome Surgical History Surgical
--- NOTE | 2021-08-08 12:43 | ECG_ITS ---
Measurements Intervals [place] Rate: 83 P: 56 HI: 146 QRS: -31 QRSD: 108 T: 35 QT: 362 QTc: 428 Interpretive Statements SINUS RHYTHM ATRIAL AND VENTRICULAR PREMATURE COMPLEXES LEFT AXIS DEVIATION ANTEROSEPTAL INFARCT, AGE INDETERMINATE BORDERLINE ST-T WAVE ABNORMALITY- INF/LAT LEADS ABNORMAL ECG Electronically Signed On 08-08-2021 13:31:17 CDT by Marlon Joe D.O.
[2021-08-08 13:00] LABS: Basophils Percent Auto 0.6 % (0.2-1.2); Eosinophils Absolute Auto 0.1 K/mm3 (0-0.3); Eosinophils Percent Auto 1.6 % (0-4.4); Hematocrit 27.2 % (37.0-47.0); Hemoglobin 9.2 g/dL (12.0-15.0); Immature Granulocyte Absolute 0.03 K/mm3 (0.00-0.031); Immature Granulocyte Percent A 0.6 % (0-0.5); Lymphocytes Percent Auto 21.7 % (18.3-44.2); Mean Corpuscular HGB Conc 33.8 g/dl (32-36); Mean Corpuscular Volume 97.5 fl (80-100); Mean Platelet Volume 10.6 fl (7.4-10.4); Monocytes Absolute Auto 0.4 K/mm3 (0.1-0.6); Monocytes Percent Auto 7.7 % (2.6-8.5); Neutrophils Absolute Auto 3.4 K/mm3 (1.3-6.7); Neutrophils Percent Auto 67.8 % (45.5-73.1); Platelet Count Result 232 k/mm3 (150-375); Red Blood Count 2.79 M/mm3 (4.2-5.4); Red Cell Distribution Width 14.1 % (11.5-14.5); White Blood Count 5.1 K/mm3 (4.5-10.0)
[2021-08-08 13:10] LABS: Prothrombin Time 12.7 Seconds (11.1-14.7)
[2021-08-08 13:14] LABS: D Dimer 0.98 ug/mL (<0.48)
[2021-08-08] MEDS: ONDANSETRON INJ 4 MG/2 ML VIAL IV PUSH ×2 (14:22→18:44)
[2021-08-08] MEDS: MORPHINE SULFATE (*CRX) 4 MG/ML INJ IV PUSH (14:22)
[2021-08-08 14:33] LABS: Alanine Aminotransferase 28 U/L (4-35); Albumin Level 4.5 g/dL (3.5-5.1); Alkaline Phosphatase 67 U/L (38-126); Anion Gap 8 mmol/L (8-16); Aspartate Amino Transferase 54 U/L (14-36); Bilirubin,Total 0.7 mg/dL (0.2-1.3); Blood Urea Nitrogen 18 mg/dL (7-17); Calcium 9.2 mg/dL (8.4-10.2); Carbon Dioxide 27 mmol/L (22-30); Chloride 100 mmol/L (98-107); Estimated CRCL calculation 20 ml/min; Estimated Glomerular Filt Rate 27; Glucose 104 mg/dL (65-110); Potassium 3.1 mmol/L (3.4-5.0); Sodium 135 mmol/L (137-145)
[2021-08-08 14:44] LABS: NT Pro B Type Natriuretic Pept 14000 pg/mL (5-100); Troponin I 0.022 ng/mL (0.000-0.034)
[2021-08-08] MEDS: POTASSIUM CHLORIDE 20 MEQ PACKET (FOR LIQUID) 40 MEQ PO (15:31)
--- NOTE | 2021-08-08 16:15 | PM.IMHP ---
H&P: HPI History of Present Illness Date/Time: 08/08/21 16:15 Chief Complaint: Chest pain and lightheadedness. Narrative: This is an 81-year-old female with multiple medical problems including congestive heart failure, chronic kidney disease, chronic anemia, paroxysmal atrial fibrillation, hypertension, hypothyroidism, coronary artery disease previously referred for CABG however deemed to be too frail, anxiety, and several other comorbidities who presented to the emergency department earlier today from home for evaluation of chest pain and lightheadedness. She is well known to the emergency department and the hospitalist service with multiple visits over the years, many of which have been under similar circumstances. I am familiar with the patient as I admitted her to the hospital on 07/27/2021 with increasing shortness of breath and orthopnea as well as an enlarging pericardial effusion. Echocardiogram at that time showed severe global hypokinesis with a calculated ejection fraction of 38% but a visual estimate of 25 to 30%, grade 2 diastolic dysfunction, and a large pericardial effusion, mostly posterior, with right atrial and right ventricular collapse consistent with cardiac tamponade physiology. Clinically however she did not demonstrate severe tamponade and there was no indication for urgent pericardiocentesis or pericardial window. It was thought that her enlarging effusion was related to severe hypothyroidism and there were plans to increase her levothyroxine dose however that has not yet been done. In any event, the patient tells me that she was sitting down doing nothing in particular when she developed a severe burning pain in her chest and abdomen with feelings of shortness of breath, nausea, and lightheadedness. The burning discomfort she was experiencing is unfortunately a chronic finding for the patient however the lightheadedness and increasing shortness of breath is relatively new. In the emergency department she was noted to become hypoxic into the low to mid 80s on room air, especially when lying back or in a reclined position. Her BNP has also continued to climb and due to these findings she is being admitted for further treatment and evaluation. She still feeling a bit lightheaded but does endorse anxiety. She notes chills but denies fever and sweats. No cold or flu symptoms. She denies lower extremity edema but her hands appear to be a bit puffy. She has not noticed any significant hair loss and she denies weight gain and constipation. Review of Systems Review of Systems: Twelve systems were reviewed. No fever or sweats. Reports chills. No sick contacts. No sinus congestion, rhinorrhea, otalgia, or odynophagia. She denies palpitations and racing heart. No vomiting. No dysuria. Except as documented, all other systems were reviewed and are negative. [facility] Past Medical History Medical History (Updated 08/08/21 @ 21:19 by Sunshine Bowman PA-C) Anxiety and depression Cardiomyopathy Chronic anemia Chronic kidney disease, stage 3b Creatinine ranges between 1.5 and 2.00 Congestive heart failure Echocardiogram on 07/28/2021 showed normal left ventricular size with mild concentric left ventricular hypertrophy and severe global hypokinesis with no segmental wall abnormalities and a calculated ejection fraction of 38% however visual estimate was in the 25 to 30% range as well as diastolic dysfunction grade 2 with severely enlarged left atrial chamber and a large pericardial effusion, mostly posterior, with right atrial and ventricular collapse consistent with cardiac tamponade physiology. Coronary artery disease With multivessel surgical revascularization with PCI at [place] October 2017. Cardiac catheterization 10/17/2018-mild preserved intra-stent luminal diameter Depression with anxiety Detached retina Right-sided, x2. Frequent headaches Gastroesophageal reflux disease History of GI bleed Hyperlipidemia Hypertension Hypothyroidism Irritable b
--- NOTE | 2021-08-08 17:59 | ADMGEN ---
This patient, Dhara Harry, was admitted to IMU Room 205 [id number]. Patient oriented to hospital policies and general routines including ID bracelet, bed and alarms, visiting hours, pain management, procedures, bathroom and other care routines, personal items, smoking policy, room service/diet, and visiting hours. Information on how to activate the Rapid Response Team has been discussed. Patient encouraged to report perceived risks to care and to ask questions if they do not understand what they are told or what they should do.
[2021-08-08 19:25] LABS: Thyroid Stimulating Hormone Reflex > 100.000 uIU/mL (0.465-4.68)
--- NOTE | 2021-08-08 19:52 | PC.NURSE ---
1830- home medications verified - pt supplied list that was not completed - used retail pharmacy/ list .
[2021-08-08 20:00] LABS: Free T4 Free Thyroxine Reflex 0.13 ng/dL (0.78-2.19)
[2021-08-08] MEDS: PANTOPRAZOLE 40 MG TABLET PO (22:37)
[2021-08-08] MEDS: ALPRAZolam (*CRX) 0.25 MG TABLET PO (22:37)
[2021-08-08] MEDS: SACUBITRIL/VALSARTAN 24-26 MG TABLET 1 TAB PO (22:37)
[2021-08-09] VITALS (15 sets, daily range): BP systolic 104–141; BP diastolic 56–85; PULSE 61–97; RESP 16–20; TEMP 36–36.7; O2SAT 91–100
[2021-08-09] MEDS: LEVOTHYROXINE SODIUM 100 MCG TABLET PO (05:53)
[2021-08-09] MEDS: LEVOTHYROXINE SODIUM 75 MCG TABLET PO (05:53)
[2021-08-09 07:14] LABS: Add Urine Microscopic? YES; Appearance Urine Cloudy (Clear); Bacteria Urine Trace /hpf; Bilirubin Urine Negative (Negative); Blood Urine Negative (Negative); Budding Yeast Urine Present /hpf; Color Urine Yellow (Yellow); Glucose Urine UA Negative (Negative); Ketones Urine Negative (Negative); Leukocyte Esterase Ur 3+ LEU/UL (Negative); Mucus Urine Rare /lpf; Nitrate Urine Negative (Negative); Protein Urine 2+ mg/dL (Negative); Specific Grav Ur 1.012 (1.001-1.035); Squamous Epithelial Cell Urine Many /hpf (Few); Transitional Epi Cells Urine Rare /hpf (None Seen); Urobilinogen Urine Negative mg/dL (<2.0); WBC Urine >75 /hpf
[2021-08-09 07:41] LABS: Hematocrit 31.6 % (37.0-47.0); Hemoglobin 9.9 g/dL (12.0-15.0); Mean Corpuscular HGB Conc 31.3 g/dl (32-36); Mean Corpuscular Hemoglobin 32.5 pg (26-34); Mean Corpuscular Volume 103.6 fl (80-100); Mean Platelet Volume 10.3 fl (7.4-10.4); Platelet Count Result 211 k/mm3 (150-375); Red Blood Count 3.05 M/mm3 (4.2-5.4); Red Cell Distribution Width 14.2 % (11.5-14.5); White Blood Count 4.6 K/mm3 (4.5-10.0)
[2021-08-09 08:03] LABS: Anion Gap 7 mmol/L (8-16); Blood Urea Nitrogen 17 mg/dL (7-17); Calcium 8.9 mg/dL (8.4-10.2); Carbon Dioxide 27 mmol/L (22-30); Chloride 102 mmol/L (98-107); Estimated CRCL calculation 22 ml/min; Estimated Glomerular Filt Rate 31; Glucose 98 mg/dL (65-110); Magnesium 2.6 mg/dL (1.6-2.3); Potassium 3.6 mmol/L (3.4-5.0); Sodium 136 mmol/L (137-145)
[2021-08-09] MEDS: CHOLECALCIFEROL 1,000 UNITS TABLET 5000 UNITS PO (08:46)
[2021-08-09] MEDS: ATORVASTATIN 40 MG TABLET PO (08:46)
[2021-08-09] MEDS: prednisoLONE ACETATE 1% OPHTH 5 ML 1 DROP EACH EYE (08:46)
[2021-08-09] MEDS: FUROSEMIDE 20 MG TABLET PO (08:47)
[2021-08-09] MEDS: hydrALAZINE 10 MG TABLET PO (08:47)
[2021-08-09] MEDS: valACYclovir HCL 500 MG TABLET PO ×2 (08:47→17:15)
[2021-08-09] MEDS: FERROUS SULFATE 324 MG TABLET PO (08:47)
[2021-08-09] MEDS: SACUBITRIL/VALSARTAN 24-26 MG TABLET 1 TAB PO ×2 (08:47→20:36)
[2021-08-09] MEDS: METOPROLOL SUCCINATE EXT REL 50 MG TABCR PO (08:47)
[2021-08-09] MEDS: CLOPIDOGREL BISULFATE 75 MG TABLET PO (08:47)
[2021-08-09] MEDS: PANTOPRAZOLE 40 MG TABLET PO ×2 (08:48→20:36)
--- NOTE | 2021-08-09 11:06 | PM.CNCAR ---
Assessment and Plan Assessment and plan (1) Pericardial effusion: Code(s): I31.3 - Pericardial effusion (noninflammatory) Status: Acute Assessment and Plan: 81-year-old female with CHF with reduced ejection fraction, CAD/ischemic cardiomyopathy status post multivessel PCI/stenting; chronic pericardial effusion, PAF, CKD, hypothyroidism. Patient admitted with multiple complaints including shortness of breath, substernal and epigastric discomfort, headache. Her EKG shows sinus rhythm with PACs. Troponin negative. BNP elevated. Recent echocardiogram showed large, predominantly posterior pericardial effusion. CT scan on this admission showed stable pericardial effusion. Patient is currently not in tamponade clinically. -continue to monitor closely for any hemodynamic changes. -avoid aggressive diuresis. Intravascular volume depletion may precipitate tamponade. -patient's pericardial effusion has been attributed to severe hypothyroidism. Optimize treatment for hypothyroidism with thyroxine replacement. -other management as per primary team (2) Hypothyroidism: Code(s): E03.9 - Hypothyroidism, unspecified Status: Acute Assessment and Plan: Severely hypothyroid. Optimize treatment for hypothyroidism with thyroxine replacement. (3) Acute on chronic combined systolic and diastolic heart failure: Code(s): I50.43 - Acute on chronic combined systolic (congestive) and diastolic (congestive) heart failure Status: Acute Assessment and Plan: Cautious diuresis. Continue low-dose beta-wilmer, sacubitril/valsartan, hydralazine. Monitor blood pressure closely. (4) CAD (coronary artery disease): Code(s): I25.10 - Atherosclerotic heart disease of [place] coronary artery without angina pectoris Status: Acute Assessment and Plan: Continue clopidogrel, statin. (5) Paroxysmal atrial fibrillation: Code(s): I48.0 - Paroxysmal atrial fibrillation Status: Chronic Assessment and Plan: Currently in sinus rhythm. Not on anticoagulation at this time. Current HAS-BLED score is 4, which suggests high risk for bleeding. Option for left atrial appendage occlusion can be discussed as an outpatient. History of Present Illness History of Present Illness Consult date/time: 08/09/21 11:06 DATE OF CONSULT: 08/09/2021 REASON FOR CONSULT: Pericardial effusion, chest pain REQUESTING PHYSICIAN:Melissa Mcmillan MD CHIEF COMPLAINT: Chest pain HPI: 81-year-old female with CHF with reduced ejection fraction, CAD/ischemic cardiomyopathy status post multivessel PCI/stenting; chronic pericardial effusion, PAF, CKD, hypothyroidism. Patient presented to [facility] on 08/08/2021 with complaints of multiple complaints including abdominal pain, chest pain, generalized fatigue and weakness. Patient is hard of hearing, and information was gathered from the patient, her and from review of the chart. According to patient's family, patient had worsening shortness of breath. She has limited mobility at baseline, uses cane for walking. She has baseline dyspnea on mild exertion. Her vitals in the emergency room showed blood pressure 150/115, pulse 89, temperature 36.6?c, saturating 98%. EKG on presentation which I personally evaluated showed sinus rhythm, PACs, anteroseptal infarct-age indeterminate. On telemetry, patient is in sinus rhythm with PACs. Two sets of troponins negative. BNP elevated. CT abdomen showed moderate cardiomegaly, large pericardial effusion unchanged;pulmonary arterial hypertension; left lower lobe segmental, right lower lobe subsegmental atelectasis; moderate sigmoid diverticulosis; no acute intra-abdominal findings. Chest x-ray shows cardiomegaly with pleural effusions. Patient was recently seen by cardiology service on 07/27/2021. At that time, on echocardiogram, she was found to have severe LV systolic dysfunction, EF 25-30%, grade 2 diastolic dysfunction,
--- NOTE | 2021-08-09 14:54 | PM.IMPN ---
Progress Note: A&P Assessment and Plan (1) Hypoxia: Code(s): R09.02 - Hypoxemia Status: Acute Assessment and Plan: Pt is not wearing any oxygen presently, hypoxia is better (2) Pericardial effusion: Code(s): I31.3 - Pericardial effusion (noninflammatory) Status: Acute Assessment and Plan: Chronic in nature related to hypothyroidism Pt had ct abdo and pelvis showing 1. Moderate cardiomegaly, large pericardial effusion unchanged. Pulmonary arterial hypertension. 2. Left lower lobe segmental, right lower lobe subsegmental atelectasis. 3. Moderate sigmoid diverticulosis. 4. No acute intra-abdominal findings. (3) Acute on chronic combined systolic and diastolic heart failure: Code(s): I50.43 - Acute on chronic combined systolic (congestive) and diastolic (congestive) heart failure Status: Acute Assessment and Plan: chronic and stable (4) Paroxysmal atrial fibrillation: Code(s): I48.0 - Paroxysmal atrial fibrillation Status: Chronic Assessment and Plan: Chronic and stable (5) Chronic abdominal pain: Code(s): R10.9 - Unspecified abdominal pain; G89.29 - Other chronic pain Status: Resolved Assessment and Plan: order PPI (6) Chronic anemia: Code(s): D64.9 - Anemia, unspecified Status: Chronic Assessment and Plan: Hb is 8 cont to monitor (7) Chronic kidney disease, stage 3: Code(s): N18.3 - Chronic kidney disease, stage 3 (moderate) Status: Acute Assessment and Plan: creat is 1.6 cont to monitor (8) Hypokalemia: Code(s): E87.6 - Hypokalemia Status: Resolved Assessment and Plan: Potassium is 3.6 cont to monitor (9) Hypothyroidism: Code(s): E03.9 - Hypothyroidism, unspecified Status: Acute Assessment and Plan: TSH is over 100, possible non compliance, aggressive management of hypothyoidism Subjective Date/time seen: 08/09/21 14:54 Interval history: 81-year-old female with multiple medical problems including congestive heart failure, chronic kidney disease, chronic anemia, paroxysmal atrial fibrillation, hypertension, hypothyroidism, coronary artery disease previously referred for CABG however deemed to be too frail, anxiety.. Pt is found to have pericardial effusion which appears more chronic than urgent. As per cardiology pericardial effusion, appears secondary to untreated hypothyroidism. Pt has some complains of some positional chest pain and mild sob. Review of Systems Review of Systems: All systems reviewed & are unremarkable except as noted in HPI and below Exam Const: General: ill appearing and other (thin chronically ill appearing ) HENMT: Head: normal to inspection Resp: Effort & Inspection: no respiratory distress Auscultation: no rhonchi and no wheezes Cardio: Rate: regular rate Rhythm: regular rhythm GI: Inspection: normal to inspection GI Palp: No abdominal tenderness, No Guarding due to palpation present (GI) and No Hepatomegaly present Auscultation: normal bowel sounds Neuro: General: other (disoriented as times ) Objective Data Vital Signs Vital Signs: Vital Signs - 24 hr 08/08/21 14:57 08/08/21 15:10 08/08/21 15:15 Temperature Pulse Rate 77 82 73 Respiratory Rate Blood Pressure Pulse Oximetry 83 L 87 L 84 L 08/08/21 15:25 08/08/21 15:27 08/08/21 15:30 Temperature Pulse Rate 77 Respiratory Rate Blood Pressure Pulse Oximetry 88 L 92 96 08/08/21 16:05 08/08/21 16:17 08/08/21 16:30 Temperature Pulse Rate 74 74 Respiratory Rate Blood Pressure Pulse Oximetry 100 98 96 08/08/21 16:44 08/08/21 17:25 08/08/21 17:34 Temperature 36.5 C Pulse Rate 74 71 70 Respiratory Rate 20 16 Blood Pressure 157/111 H 140/94 H 141/97 H Pulse Oximetry 96 93 96 08/08/21 18:00 08/08/21 20:00 08/08/21 22:00 Temperature 36.3 C L Pulse Rate 76 74 78 Respiratory
[2021-08-09] MEDS: ALPRAZolam (*CRX) 0.25 MG TABLET PO (20:36)
[2021-08-10] VITALS (14 sets, daily range): BP systolic 102–129; BP diastolic 60–90; PULSE 63–98; RESP 12–20; TEMP 36.3–36.5; O2SAT 91–99
[2021-08-10] MEDS: LEVOTHYROXINE SODIUM 75 MCG TABLET PO (05:58)
[2021-08-10] MEDS: LEVOTHYROXINE SODIUM 100 MCG TABLET PO (05:58)
[2021-08-10] MEDS: ATORVASTATIN 40 MG TABLET PO (08:03)
[2021-08-10] MEDS: ALPRAZolam (*CRX) 0.25 MG TABLET PO ×3 (08:03→21:16)
[2021-08-10] MEDS: CHOLECALCIFEROL 1,000 UNITS TABLET 5000 UNITS PO (08:03)
[2021-08-10] MEDS: SACUBITRIL/VALSARTAN 24-26 MG TABLET 1 TAB PO ×2 (08:03→21:16)
[2021-08-10] MEDS: hydrALAZINE 10 MG TABLET PO (08:03)
[2021-08-10] MEDS: CLOPIDOGREL BISULFATE 75 MG TABLET PO (08:03)
[2021-08-10] MEDS: valACYclovir HCL 500 MG TABLET PO ×2 (08:04→17:51)
[2021-08-10] MEDS: METOPROLOL SUCCINATE EXT REL 50 MG TABCR PO (08:04)
[2021-08-10] MEDS: PANTOPRAZOLE 40 MG TABLET PO ×2 (08:04→21:16)
[2021-08-10] MEDS: FUROSEMIDE 20 MG TABLET PO (08:04)
[2021-08-10] MEDS: FERROUS SULFATE 324 MG TABLET PO (08:04)
[2021-08-10] MEDS: prednisoLONE ACETATE 1% OPHTH 5 ML 1 DROP EACH EYE (08:04)
[2021-08-10 08:17] LABS: Hematocrit 31.2 % (37.0-47.0); Mean Corpuscular HGB Conc 32.1 g/dl (32-36); Mean Corpuscular Hemoglobin 32.5 pg (26-34); Mean Corpuscular Volume 101.3 fl (80-100); Mean Platelet Volume 10.5 fl (7.4-10.4); Platelet Count Result 219 k/mm3 (150-375); Red Blood Count 3.08 M/mm3 (4.2-5.4); Red Cell Distribution Width 14.5 % (11.5-14.5); White Blood Count 4.5 K/mm3 (4.5-10.0)
[2021-08-10 08:27] LABS: Anion Gap 7 mmol/L (8-16); Blood Urea Nitrogen 21 mg/dL (7-17); Carbon Dioxide 25 mmol/L (22-30); Chloride 102 mmol/L (98-107); Estimated CRCL calculation 19 ml/min; Estimated Glomerular Filt Rate 25; Glucose 94 mg/dL (65-110); Potassium 3.9 mmol/L (3.4-5.0); Sodium 134 mmol/L (137-145)
--- NOTE | 2021-08-10 10:17 | ECG_ITS ---
Measurements Intervals [place] Rate: 64 P: 45 [place]: 156 QRS: -24 QRSD: 106 T: 0 QT: 387 QTc: 399 Interpretive Statements SINUS RHYTHM ATRIAL AND VENTRICULAR PREMATURE COMPLEXES ANTEROSEPTAL INFARCT, AGE INDETERMINATE BORDERLINE T WAVE ABNORMALITY- INF/HIGH LAT LEADS BASELINE ARTIFACT- V4-V5 ABNORMAL ECG Electronically Signed On 08-10-2021 11:09:24 CDT by Marlon Joe D.O.
--- NOTE | 2021-08-10 12:33 | PM.IMPN ---
Progress Note: A&P Assessment and Plan (1) Hypoxia: Code(s): R09.02 - Hypoxemia Status: Resolved Assessment and Plan: Pt is not wearing any oxygen presently, pt will benefit from a home oxygen assessment prior to dischrage (2) Pericardial effusion: Code(s): I31.3 - Pericardial effusion (noninflammatory) Status: Acute Assessment and Plan: Chronic in nature related to hypothyroidism Pt had ct abdo and pelvis showing 1. Moderate cardiomegaly, large pericardial effusion unchanged. Pulmonary arterial hypertension. 2. Left lower lobe segmental, right lower lobe subsegmental atelectasis. 3. Moderate sigmoid diverticulosis. 4. No acute intra-abdominal findings. 5.Awaiting to see cardiology today 6. pt is on oral lasix 20 mg po qdaily (3) Acute on chronic combined systolic and diastolic heart failure: Code(s): I50.43 - Acute on chronic combined systolic (congestive) and diastolic (congestive) heart failure Status: Acute Assessment and Plan: Chronic and stable ejection fraction is 30% Diastolic dysfunction grade 2 is present. (4) Paroxysmal atrial fibrillation: Code(s): I48.0 - Paroxysmal atrial fibrillation Status: Chronic Assessment and Plan: Chronic and stable (5) Chronic abdominal pain: Code(s): R10.9 - Unspecified abdominal pain; G89.29 - Other chronic pain Status: Resolved Assessment and Plan: Order PPI (6) Chronic anemia: Code(s): D64.9 - Anemia, unspecified Status: Chronic Assessment and Plan: Hb is 10 cont to monitor (7) Chronic kidney disease, stage 3: Code(s): N18.3 - Chronic kidney disease, stage 3 (moderate) Status: Acute Assessment and Plan: Creat is 1.9 cont to monitor (8) Hypokalemia: Code(s): E87.6 - Hypokalemia Status: Resolved Assessment and Plan: Potassium is 3.9 (9) Hypothyroidism: Code(s): E03.9 - Hypothyroidism, unspecified Status: Acute Assessment and Plan: TSH is over 100, possible non compliance, aggressive management of hypothyoidism , pt is on 175mcg levothyroxine daily Subjective Date/time seen: 08/10/21 12:33 Interval history: 81-year-old female with multiple medical problems including congestive heart failure, chronic kidney disease, chronic anemia, paroxysmal atrial fibrillation, hypertension, hypothyroidism, coronary artery disease previously referred for CABG however deemed to be too frail, anxiety. Pt is found to have pericardial effusion which appears more chronic than urgent. As per cardiology pericardial effusion, appears secondary to untreated hypothyroidism. Pt has some complains of some positional chest pain and mild sob. Similar presentation to yesterday. Review of Systems Review of Systems: All systems reviewed & are unremarkable except as noted in HPI and below Exam Const: General: ill appearing and other (thin chronically ill appearing ) HENMT: Head: normal to inspection Resp: Effort & Inspection: no respiratory distress Auscultation: no rhonchi and no wheezes Cardio: Rhythm: other (faint heart beat ) GI: Inspection: normal to inspection Auscultation: normal bowel sounds Neuro: General: other (disoriented as times ) Objective Data Vital Signs Vital Signs: Vital Signs - 24 hr 08/09/21 14:00 08/09/21 16:00 08/09/21 18:00 Temperature 36.4 C L Pulse Rate 88 61 64 Respiratory Rate 16 Blood Pressure 116/70 Pulse Oximetry 91 08/09/21 20:00 08/09/21 22:00 08/09/21 23:18 Temperature 36.7 C Pulse Rate 62 68 64 Respiratory Rate 16 16 Blood Pressure 116/62 Pulse Oximetry 98 98 08/09/21 23:48 08/10/21 01:48 08/10/21 03:57 Temperature 36.4 C L Pulse Rate 63 68 66 Respiratory Rate 20 20 Blood Pressure 134/65 Pulse Oximetry 97 97 08/10/21 04:00 08/10/21 06:00 08/10/21 08:00 Temperature 36.4 C L 36.4 C L Pulse Rate 67 68 69 Respiratory Ra
--- NOTE | 2021-08-10 13:20 | PM.PNCARD ---
Progress Note: A&P Additional Plan 81-year-old white female with: Coronary artery disease clinically stable in that regard following for aggressive percutaneous revascularization when she was felt to be too frail to undergo CABG in the past. She from that respect seems to be stable. She has a sizable pericardial effusion that I am sure is the result of hypothyroidism. 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 Once again as I mentioned in my consultation a couple of weeks ago there is no indication to tap this effusion since it is not causing any hemodynamic compromise. Once again there is no physical exam evidence of cardiac tamponade. Nathaniel Aj MD [facility] Subjective Date/time seen: Date of service: 08/10/21 13:20 Interval history: 81-year-old woman with: Coronary artery disease previous aggressive percutaneous revascularization and she has been stable in this regard for a number of years. The patient also has a history of a moderate to enlarging pericardial effusion which is the result of hypothyroidism. This was detailed in previous consultations less than 2 weeks ago. She describes a multitude of complaints which is typically her admission which include some abdominal pain some chest pain a variety of other symptoms. None of these are suspicious for or related to myocardial ischemia in my opinion. She many times has the sorts of complaints as R[place]in[place] detailed in multiple previous admissions. The current issue seems to be concern regarding her pericardial effusion. Patient has long discussion with me today in the hospital room asking the same questions multiple times. She seems to not remember these topics including her hypothyroidism in the need to follow-up with her PCP and have this adequately treated. She was wondering about I would be the physician prescribing her thyroid medications and I told her several times that I would not. She was happy to see me in the room today as she said she has not seen me in quite a long time. I reminded her that we saw each other just less than 2 weeks ago in the hospital. Exam Const: General: comfortable and no acute distress Other: Rather anxious frail elderly lady HENMT: Mouth: Yes moist mucous membranes Eyes: Sclera: sclerae normal Pupils: Equal, round and reactive pupils present Neck: Neck: supple and no JVD Resp: Effort & Inspection: normal respiratory effort Auscultation: clear to auscultation bilaterally Cardio: Rate: regular rate Rhythm: regular rhythm Other: No pericardial rub GI: GI Palp: Yes Soft to palpation Auscultation: normal bowel sounds Skin: General skin exam: normal color Neuro: Other: Answers questions appropriately seems to have poor memory at this time Extrem: General: normal to inspection Objective Data Vital Signs Vital Signs: Vital Signs - 24 hr 08/09/21 14:00 08/09/21 16:00 08/09/21 18:00 Temperature 36.4 C L Pulse Rate 88 61 64 Respiratory Rate 16 Blood Pressure 116/70 Pulse Oximetry 91 08/09/21 20:00 08/09/21 22:00 08/09/21 23:18 Temperature 36.7 C Pulse Rate 62 68 64 Respiratory Rate 16 16 Blood Pressure 116/62 Pulse Oximetry 98 98 08/09/21 23:48 08/10/21 01:48 08/10/21 03:57 Temperature 36.4 C L Pulse Rate 63 68 66 Respiratory Rate 20 20 Blood Pressure 134/65 Pulse Oximetry 97 97 08/10/21 04:00 08/10/21 06:00 08/10/21 08:00 Temperature 36.4 C L 36.4 C L Pulse Rate 67 68 69 Respiratory Rate 20 12 Blood Pressure 126/72 129/90 Pulse Oximetry 95 95 08/10/21 10:59 08/10/21 12:00 Temperature 36.3 C L Pulse Rate 98 Respiratory Rate 16 Blood Pressure 125/75 Pulse Oximetry 91 96 Intake/Output Intake/Output: Intake & Output 08/07/21 08/08/21 08/09/21 08/10/21 23:59 23:59 23:59 23:59 Intake Total 1150 440 Output Total 1200 400 Balance -50 40 Meds/
[2021-08-11] VITALS (13 sets, daily range): BP systolic 111–139; BP diastolic 64–80; PULSE 57–91; RESP 16–18; TEMP 36.3–36.7; O2SAT 93–99
[2021-08-11] MEDS: LEVOTHYROXINE SODIUM 100 MCG TABLET PO (05:51)
[2021-08-11] MEDS: ACETAMINOPHEN 325 MG TABLET 650 MG PO (05:51)
[2021-08-11] MEDS: LEVOTHYROXINE SODIUM 75 MCG TABLET PO (05:51)
[2021-08-11 08:08] LABS: Hemoglobin 9.6 g/dL (12.0-15.0); Mean Corpuscular HGB Conc 33.1 g/dl (32-36); Mean Corpuscular Hemoglobin 33.1 pg (26-34); Mean Platelet Volume 10.5 fl (7.4-10.4); Platelet Count Result 221 k/mm3 (150-375); Red Cell Distribution Width 14.6 % (11.5-14.5); White Blood Count 3.8 K/mm3 (4.5-10.0)
[2021-08-11 08:10] LABS: Anion Gap 8 mmol/L (8-16); Blood Urea Nitrogen 23 mg/dL (7-17); Calcium 8.9 mg/dL (8.4-10.2); Carbon Dioxide 25 mmol/L (22-30); Chloride 100 mmol/L (98-107); Estimated CRCL calculation 19 ml/min; Estimated Glomerular Filt Rate 25; Glucose 98 mg/dL (65-110); Potassium 4.1 mmol/L (3.4-5.0); Sodium 133 mmol/L (137-145)
[2021-08-11 08:26] LABS: INR 0.9; Prothrombin Time 12.4 Seconds (11.1-14.7)
[2021-08-11] MEDS: valACYclovir HCL 500 MG TABLET PO (10:05)
[2021-08-11] MEDS: METOPROLOL SUCCINATE EXT REL 50 MG TABCR PO (10:05)
[2021-08-11] MEDS: hydrALAZINE 10 MG TABLET PO (10:05)
[2021-08-11] MEDS: ATORVASTATIN 40 MG TABLET PO (10:06)
[2021-08-11] MEDS: PANTOPRAZOLE 40 MG TABLET PO (10:06)
[2021-08-11] MEDS: CHOLECALCIFEROL 1,000 UNITS TABLET 5000 UNITS PO (10:06)
[2021-08-11] MEDS: CLOPIDOGREL BISULFATE 75 MG TABLET PO (10:06)
[2021-08-11] MEDS: FUROSEMIDE 20 MG TABLET PO (10:06)
[2021-08-11] MEDS: SACUBITRIL/VALSARTAN 24-26 MG TABLET 1 TAB PO (10:07)
[2021-08-11] MEDS: prednisoLONE ACETATE 1% OPHTH 5 ML 1 DROP EACH EYE (10:07)
--- NOTE | 2021-08-11 13:54 | HOMEO2EVAL ---
Evaluation was performed at [facility] Home Oxygen Evaluation RC: Home Oxygen (O2) Evaluation Start: 08/11/21 10:39 Freq: ONCE Status: Active Protocol: RPE Activity Type Activity Date Activity User E-Sign Co-Sign Detail Recorded Client Recorded Date Recorded By Document 08/11/21 11:40 HAL [email or web address] 08/11/21 13:54 HAL Document 08/11/21 11:45 HAL [email or web address] 08/11/21 13:54 HAL Document 08/11/21 11:55 HAL [email or web address] 08/11/21 13:54 HAL 08/11/21 08/11/21 08/11/21 11:40 11:45 11:55 Home O2 Evaluation Test Phase Resting Exercise Resting Oxygen Delivery Room Air Room Air Room Air Pulse Oximetry (90-100 %) 98 96 98 Pulse Rate (60-100 beats/min) 57 L 88 63 Activity Tolerance Excellent Ambulation Distance (feet) 200 Home Oxygen Evaluation Comments No home o2 needed at this time. Treatment Charges O2 Evaluation - Inpatient
--- NOTE | 2021-08-11 13:54 | PCRCNOTE ---
Home o2 eval completed. No home o2 needed at this time.
--- NOTE | 2021-08-11 14:28 | PM.DS ---
DS: Admitting Diagnosis Discharge Date 08/11/2021 Admitting Diagnosis Hypoxia DS: Discharge Diagnosis Discharge Diagnosis (1) Hypoxia: Code(s): R09.02 - Hypoxemia Status: Resolved Assessment and Plan: On presentation, she was found to be hypoxic in the mid 80s. Reeders to be related to CHF given markedly elevated BNP from her baseline in addition to weight gain. She was weaned to room air and was maintaining adequate O2 saturations. Home O2 eval performed on 08/11/2021 with no need for supplemental oxygen. (2) Hypothyroidism: Code(s): E03.9 - Hypothyroidism, unspecified Status: Acute Assessment and Plan: TSH found to be elevated >100. On review of prior labs, this is been an issue since October 2020. Possibly due to poor compliance. Free T4 low. Levothyroxine increased to 175 mcg daily. She will need repeat TSH with reflex in 4 weeks. Instructed extensively on importance of taking levothyroxine daily. (3) Pericardial effusion: Code(s): I31.3 - Pericardial effusion (noninflammatory) Status: Acute Assessment and Plan: Chronic in nature. Reeders to be related to hypothyroidism. Echo from her last visit showed physiology consistent with cardiac tamponade, however she had no clinical symptoms and was hemodynamically stable. Repeat CT of the chest showed unchanged pericardial effusion. She was seen in consultation by Cardiology who noted no need for further intervention regarding effusion as it was not causing any hemodynamic compromise. Follow-up with cardiology as an outpatient. (4) Acute on chronic combined systolic and diastolic heart failure: Code(s): I50.43 - Acute on chronic combined systolic (congestive) and diastolic (congestive) heart failure Status: Acute Assessment and Plan: Chronic and stable. Echocardiogram from 07/28/2021 showed EF 30% with grade 2 diastolic dysfunction. She was euvolemic on my exam and will be continued on her current regimen including Lasix 20 mg daily, Entresto, metoprolol. CHF education provided. Continue with Cardiology follow-up. (5) Paroxysmal atrial fibrillation: Code(s): I48.0 - Paroxysmal atrial fibrillation Status: Chronic Assessment and Plan: Rate remained controlled. (6) Chronic anemia: Code(s): D64.9 - Anemia, unspecified Status: Chronic Assessment and Plan: Hemoglobin and hematocrit stable on review of prior labs. (7) Chronic kidney disease, stage 3: Code(s): N18.3 - Chronic kidney disease, stage 3 (moderate) Status: Acute Assessment and Plan: Creatinine remained consistent with her baseline. (8) Hypokalemia: Code(s): E87.6 - Hypokalemia Status: Resolved Assessment and Plan: Potassium slightly low at 3.1 on presentation and was supplemented. Subsequent potassium levels remained stable. (9) Asymptomatic bacteriuria: Code(s): R82.71 - Bacteriuria Status: Acute Assessment and Plan: UA was abnormal on presentation with 3+ leuk esterase, however with many squamous cells. Urine culture with growth of Enterococcus species an additional non predominating organisms. She was entirely asymptomatic. Given her lack of symptoms and lack of fevers/chills, or leukocytosis, there was no indication for antibiotics. Should she develop urinary symptoms, she should obtain repeat urine culture. DS: Summary Hospital Course Hospital Course: Date of admission: 08/08/2021 Date of discharge: 08/11/2021 Dhara Harry is an 81-year-old female well known to the hospitalist service with a history of CHF, CKD, chronic anemia, paroxysmal atrial fibrillation, hypertension, hypothyroidism, CAD, anxiety, and several other comorbidities who presented to the emergency department on 08/08/2021 with complaints chest discomfort and abdominal pain. On presentation to the emergency department, her bl
== END 2021-08-11 15:13 | disposition home health service (06) | DRG 643 ==
LOC: ANHED 15:40 → ANHIMU 16:32
PROVIDERS: Family Medicine; Physician Assistant; Admitting Provider Internal Medicine; Emergency Provider Emergency Medicine; PCP Family Medicine; Visit Provider Physician Assistant
DX: E03.9 Hypothyroidism, unspecified (principal); I50.43 Acute on chronic combined systolic (congestive) and diastolic (congestive) heart failure; I31.3 Pericardial effusion (noninflammatory); I13.0 Hypertensive heart and chronic kidney disease with heart failure and stage 1 through stage 4 chronic kidney disease, or unspecified chronic kidney disease; R09.02 Hypoxemia; R82.71 Bacteriuria; E87.6 Hypokalemia; D64.9 Anemia, unspecified; I48.0 Paroxysmal atrial fibrillation; I25.5 Ischemic cardiomyopathy; N18.32 Chronic kidney disease, stage 3b; I34.1 Nonrheumatic mitral (valve) prolapse; G47.33 Obstructive sleep apnea (adult) (pediatric); R10.9 Unspecified abdominal pain; G89.29 Other chronic pain; F41.8 Other specified anxiety disorders; K21.9 Gastro-esophageal reflux disease without esophagitis; E78.5 Hyperlipidemia, unspecified; G62.9 Polyneuropathy, unspecified; Z79.899 Other long term (current) drug therapy; Z88.0 Allergy status to penicillin; Z91.81 History of falling; Z95.5 Presence of coronary angioplasty implant and graft; Z98.42 Cataract extraction status, left eye; Z98.41 Cataract extraction status, right eye
CPT/HCPCS: 36415; 71045; 71250; 74176; 80048; 80053; 81001; 83690; 83735; 83880; 84439; 84443; 84484; 85025; 85027; 85380; 85610; 85730; 87077; 87086; 87088; 87186; 93005; 94618; 96374; 96375; 96376; 99285; A9270; G0378; J2270; J2405

== ENCOUNTER 2021-08-21 08:35 | Emergency (ER) | payer MEDICARE, SELFPAY ==
[2021-08-21] VITALS (19 sets, daily range): BP systolic 108–147; BP diastolic 59–84; PULSE 69–92; RESP 13–24; TEMP 36.5–36.6; O2SAT 94–100
--- NOTE | ~2021-08-21 | XR_ITS ---
EXAMINATION: XR chest 2V DATE: 08/21/2021 09:33 INDICATION: Chest pain TECHNIQUE: AP and lateral views of the chest are obtained. COMPARISON: 08/08/2021 FINDINGS: There is persistent enlargement of the cardiac silhouette, consistent with cardiomegaly per icardial effusion. There are minimal airspace opacities of the lung bases. No pleural effusion or pne umothorax is identified. There is severe thoracic spondylosis. Coronary artery stents are noted. Ther e are degenerative changes of the shoulders with a calcified loose body noted on the right. IMPRESSION: 1. Bibasilar airspace opacities, consistent with atelectasis versus pneumonia. 2. Enlarged cardiac silhouette, consistent with cardiomegaly and pericardial effusion. Reviewed, dictated and finalized at location A. R SPECIALIST IMPRESSION: 1. Bibasilar airspace opacities, consistent with atelectasis versus pneumonia. 2. Enlarged cardiac silhouette, consistent with cardiomegaly and pericardial ef fusion.
--- NOTE | ~2021-08-21 | XR_ITS ---
EXAMINATION: XR abdomen/kub 1V INDICATION: Abdominal pain TECHNIQUE: Supine views of the abdomen were obtained on 2 radiographs. COMPARISON: 07/02/2021 FINDINGS: The bowel gas pattern is normal. No dilated loops of bowel are evident. There is no evidenc e of free intraperitoneal gas. Phleboliths are noted in the pelvis and right paraspinal regions. Ther e is a bone island of the left ilium. Changes of bilateral total hip arthroplasty are noted. Surgical clips in the right upper quadrant are likely from prior cholecystectomy. There is severe lumbar spon dylosis. The cardiac silhouette is enlarged, consistent with cardiomegaly and pericardial effusion. IMPRESSION: 1. No radiographic correlate for the patient's symptoms. Reviewed, dictated and finalized at location A. PLATE STAMPING MACHINE OPERATOR
--- NOTE | 2021-08-21 09:20 | ECG_ITS ---
Measurements Intervals [place] Rate: 74 P: CO: 0 QRS: -24 QRSD: 106 T: -35 QT: 386 QTc: 431 Interpretive Statements SINUS RHYTHM ATRIAL AND VENTRICULAR PREMATURE COMPLEXES ANTEROSEPTAL INFARCT, AGE INDETERMINATE BORDERLINE ST-T WAVE ABNORMALITY- INF/LAT LEADS BASELINE ARTIFACT- I, II, III, V3 ABNORMAL ECG Electronically Signed On 08-21-2021 14:43:24 RECREATIONAL THERAPY AIDE by Marlon Joe D.O.
[2021-08-21] MEDS: FAMOTIDINE 20 MG/2 ML VIAL IV PUSH (09:52)
[2021-08-21] MEDS: MAG HYDROX/AL HYDROX/SIMETH 30 ML UDC PO (09:52)
[2021-08-21] MEDS: LIDOCAINE HCL 2% VISC SOLN 15 ML UDC 20 ML PO (09:52)
[2021-08-21 10:06] LABS: Basophils Percent Auto 0.5 % (0.2-1.2); Eosinophils Absolute Auto 0.1 K/mm3 (0-0.3); Eosinophils Percent Auto 1.6 % (0-4.4); Hematocrit 24.3 % (37.0-47.0); Immature Granulocyte Absolute 0.01 K/mm3 (0.00-0.031); Immature Granulocyte Percent A 0.3 % (0-0.5); Lymphocytes Absolute Auto 0.72 K/mm3 (0.9-3.2); Lymphocytes Percent Auto 18.8 % (18.3-44.2); Mean Corpuscular HGB Conc 32.9 g/dl (32-36); Mean Corpuscular Hemoglobin 33.1 pg (26-34); Mean Corpuscular Volume 100.4 fl (80-100); Mean Platelet Volume 10.1 fl (7.4-10.4); Monocytes Absolute Auto 0.5 K/mm3 (0.1-0.6); Monocytes Percent Auto 13.4 % (2.6-8.5); Neutrophils Absolute Auto 2.5 K/mm3 (1.3-6.7); Neutrophils Percent Auto 65.4 % (45.5-73.1); Platelet Count Result 200 k/mm3 (150-375); Red Blood Count 2.42 M/mm3 (4.2-5.4); Red Cell Distribution Width 14.9 % (11.5-14.5); White Blood Count 3.8 K/mm3 (4.5-10.0)
[2021-08-21 10:22] LABS: Alanine Aminotransferase 13 U/L (4-35); Albumin Level 3.8 g/dL (3.5-5.1); Alkaline Phosphatase 53 U/L (38-126); Anion Gap 6 mmol/L (8-16); Aspartate Amino Transferase 30 U/L (14-36); Bilirubin,Total 0.5 mg/dL (0.2-1.3); Blood Urea Nitrogen 16 mg/dL (7-17); Calcium 8.6 mg/dL (8.4-10.2); Carbon Dioxide 34 mmol/L (22-30); Chloride 97 mmol/L (98-107); Estimated CRCL calculation 21 ml/min; Estimated Glomerular Filt Rate 36; Glucose 83 mg/dL (65-110); Lipase 61 U/L (23-300); Potassium 2.7 mmol/L (3.4-5.0); Sodium 137 mmol/L (137-145)
--- NOTE | 2021-08-21 10:24 | ED.GENADULT ---
HPI - General Adult General Chief complaint: Abdominal Pain Stated complaint: epigastric pain Time Seen by Provider: 08/21/21 10:06 Source: patient Mode of arrival: ambulatory Limitations: no limitations History of Present Illness HPI narrative: Patient presents for evaluation of a burning sensation in her abdomen, back and chest. She states her symptoms have been present for the last 3 to 4 weeks. She has been seen in this emergency department multiple times over the last several months for abdominal pain and/or chest pain. She states that the burning sensation starts in her abdomen and radiates circumferentially into the back and up into the chest. She denies overt chest pain per se. No fever, chills, nausea, vomiting, change in bowel pattern, urinary symptoms. She does have some chronic exertional dyspnea but denies shortness of breath at rest and denies cough. Last bowel movement was this morning, solid in consistency, without the presence of blood or mucus in the stool. On chart review it appears that Dr Coates follows her and she is taking a PPI BID. Pt does not believe she has taken any medication to assist with her symptoms. No additional complaints or concerns. Related Data Home Medications Medication Instructions Recorded Confirmed furosemide 20 mg tablet 20 mg PO QAM 12/15/20 08/08/21 nitroglycerin 0.4 mg sublingual 0.4 mg SUBLINGUAL PRN PRN 12/15/20 08/08/21 tablet Entresto 1 tablet PO BID 02/10/21 08/08/21 oxybutynin chloride 10 mg 10 mg PO DAILY 04/18/21 08/08/21 tablet,extended release 24 hr cholecalciferol (vitamin D3) 5,000 unit PO DAILY 04/29/21 08/08/21 hydralazine 10 mg PO DAILY 06/09/21 08/08/21 metoprolol succinate [Toprol XL] 50 mg PO DAILY 06/09/21 08/08/21 prednisolone acetate [Pred Forte] 1 drp EACH EYE DAILY 06/09/21 08/08/21 clopidogrel [Plavix] 75 mg PO DAILY 08/08/21 08/08/21 pantoprazole 40 mg PO Q12H 08/08/21 08/08/21 valacyclovir 500 mg PO BID 08/08/21 08/08/21 Allergies Allergy/AdvReac Type Severity Reaction Status Date / Time Penicillins Allergy Unknown Rash Verified 08/21/21 09:06 Review of Systems Review of Systems: CONSTITUTIONAL: Denies fever, chills, or sweats. EYES: Denies visual changes, redness, or discharge. ENT: Denies rhinorrhea, congestion, sore throat, or otalgia. CARDIOVASCULAR: Reports a burning sensation in the chest. Denies overt chest pain per se, palpitations, or edema. RESPIRATORY: Denies cough or dyspnea. GASTROINTESTINAL: Reports burning sensation of the abdomen. Denies nausea, vomiting, or diarrhea. GENITOURINARY: Denies dysuria or hematuria. SKIN: Denies rash or itching. MUSCULOSKELETAL: Denies back pain, joint pain, or myalgia. NEUROLOGIC: Denies headache, numbness, dizziness, or weakness. PSYCHIATRIC: Denies anxiety or depression. [facility] Past Medical History Medical History Anxiety and depression Cardiomyopathy Chronic anemia Chronic kidney disease, stage 3b Creatinine ranges between 1.5 and 2.00 Congestive heart failure Echocardiogram on 07/28/2021 showed normal left ventricular size with mild concentric left ventricular hypertrophy and severe global hypokinesis with no segmental wall abnormalities and a calculated ejection fraction of 38% however visual estimate was in the 25 to 30% range as well as diastolic dysfunction grade 2 with severely enlarged left atrial chamber and a large pericardial effusion, mostly posterior, with right atrial and ventricular collapse consistent with cardiac tamponade physiology. Coronary artery disease With multivessel surgical revascularization with PCI at [facility] October 2017. Cardiac catheterization 10/17/2018-mild preserved intra-stent luminal diameter Depression with anxiety Detached retina Right-sided, x2. Frequent headaches Gastroesophageal reflux disease History of GI bleed Hyperlipidemia Hypertension Hypothyroidism Irritable bowel syndrome Ischemic car
[2021-08-21 10:53] LABS: NT Pro B Type Natriuretic Pept 8000 pg/mL (5-100); Troponin I < 0.012 ng/mL (0.000-0.034)
[2021-08-21] MEDS: BELLADONNA ALK/PHENOB ELIX 10 ML, MAG HYDROX/ALUMINUM HYD/SIMETH 30 ML, LIDOCAINE HCL 2... PO (11:13)
[2021-08-21 11:14] LABS: Add Urine Microscopic? YES; Appearance Urine Clear (Clear); Bilirubin Urine Negative (Negative); Blood Urine Negative (Negative); Color Urine Straw (Yellow); Glucose Urine UA Negative (Negative); Ketones Urine Negative (Negative); Leukocyte Esterase Ur Negative LEU/UL (Negative); Nitrate Urine Negative (Negative); Protein Urine 1+ mg/dL (Negative); RBC Urine 0-2 /hpf (0-2); Specific Grav Ur 1.006 (1.001-1.035); Urobilinogen Urine Negative mg/dL (<2.0); WBC Urine 0-3 /hpf
[2021-08-21] MEDS: POTASSIUM CHLORIDE 20 MEQ PACKET (FOR LIQUID) 40 MEQ PO (11:14)
== END 2021-08-21 12:26 | disposition home or self-care (01) ==
PROVIDERS: Emergency Medicine; Emergency Provider Nurse Practitioner; PCP Family Medicine
DX: E87.6 Hypokalemia (principal); R91.8 Other nonspecific abnormal finding of lung field; K21.9 Gastro-esophageal reflux disease without esophagitis; Z79.02 Long term (current) use of antithrombotics/antiplatelets; I13.0 Hypertensive heart and chronic kidney disease with heart failure and stage 1 through stage 4 chronic kidney disease, or unspecified chronic kidney disease; N18.32 Chronic kidney disease, stage 3b; I50.40 Unspecified combined systolic (congestive) and diastolic (congestive) heart failure; D63.1 Anemia in chronic kidney disease; I25.10 Atherosclerotic heart disease of native coronary artery without angina pectoris; E78.5 Hyperlipidemia, unspecified; I48.0 Paroxysmal atrial fibrillation; I25.5 Ischemic cardiomyopathy; E03.9 Hypothyroidism, unspecified; G25.81 Restless legs syndrome; G47.33 Obstructive sleep apnea (adult) (pediatric); K58.9 Irritable bowel syndrome, unspecified; F41.8 Other specified anxiety disorders; K62.6 Ulcer of anus and rectum; G62.9 Polyneuropathy, unspecified; Z98.42 Cataract extraction status, left eye; Z98.41 Cataract extraction status, right eye; Z96.643 Presence of artificial hip joint, bilateral; Z96.653 Presence of artificial knee joint, bilateral; Z95.5 Presence of coronary angioplasty implant and graft; I49.1 Atrial premature depolarization; I49.3 Ventricular premature depolarization; R94.31 Abnormal electrocardiogram [ECG] [EKG]
CPT/HCPCS: 36415; 71046; 74018; 80053; 81001; 83690; 83735; 83880; 84484; 85025; 93005; 96374; 99284; A9270

== ENCOUNTER 2021-08-24 13:12 | Observation (INO) | payer MEDICARE, SELFPAY ==
[2021-08-24] VITALS (11 sets, daily range): BP systolic 125–148; BP diastolic 74–97; PULSE 69–110; RESP 14–20; TEMP 36.4–37.3; O2SAT 95–100; BMI 19.8
--- NOTE | ~2021-08-24 | XR_ITS ---
EXAMINATION: XR chest 1V portable EXAM DATE: 08/24/2021 14:09 INDICATION: Chest pain, tightness. TECHNIQUE: Portable AP frontal chest x-ray was obtained. Comparison is made to prior examination from 08/21/2021 FINDINGS: Significantly enlarged cardiac silhouette, probably combination of effusion and cardiomegal y correlating with chest CT from 2 weeks ago Coronary artery stents. Small amount of bibasilar opacit y probably atelectasis. There is aortic arteriosclerosis. There is no pneumothorax or pleural effusio n suspected. The bones are osteopenic. There are bony degenerative changes. IMPRESSION: Cardiomegaly, pericardial effusion. Small amount of basilar airspace disease probably at electasis. Reviewed, dictated and finalized at location B. MARKETING ANALYST IMPRESSION: Cardiomegaly, pericardial effusion. Small amount of basilar airspa ce disease probably atelectasis.
--- NOTE | 2021-08-24 13:14 | ECG_ITS ---
Measurements Intervals [place] Rate: 78 P: 87 [place]: 156 QRS: -52 QRSD: 107 T: 36 QT: 399 QTc: 456 Interpretive Statements SINUS RHYTHM ATRIAL COUPLET AND ATRIAL AND VENTRICULAR PREMATURE COMPLEXES LEFT ANTERIOR FASCICULAR BLOCK CANNOT RULE OUT SEPTAL INFARCT, AGE INDETERMINATE BORDERLINE T WAVE ABNORMALITY- INFERIOR LEADS BASELINE ARTIFACT- I, III, AVR, AVL,A VF ABNORMAL ECG Electronically Signed On 08-24-2021 14:19:28 ANALYTICAL SCIENTIST by Marlon Joe D.O.
--- NOTE | 2021-08-24 14:11 | ED.CHESTPAIN ---
HPI - Chest Pain General Chief Complaint: Chest Pain Stated Complaint: crushing chest pain Time Seen by Provider: 08/24/21 13:25 Source: patient, RN notes reviewed and old records reviewed Mode of arrival: ambulatory Limitations: no limitations History of Present Illness HPI narrative: This is an 81 year old female with history hypertension, CHF, esophagitis and chronic pain who presents for evaluation of chest pain and abdominal pain. She states she developed left chest pain and abdominal pain yesterday. This pain has been constant. She denies nausea, vomiting, fever, cough. She does reports some shortness of breath. Patient is frequently seen in ER for these symptoms over the past several year. She reports she is taking her home medications as prescribed but there is concern about compliance. Related Data Home Medications Medication Instructions Recorded Confirmed furosemide 20 mg tablet 20 mg PO QAM 12/15/20 08/24/21 nitroglycerin 0.4 mg sublingual 0.4 mg SUBLINGUAL PRN PRN 12/15/20 08/24/21 tablet Entresto 1 tablet PO BID 02/10/21 08/24/21 oxybutynin chloride 10 mg 10 mg PO DAILY 04/18/21 08/24/21 tablet,extended release 24 hr cholecalciferol (vitamin D3) 5,000 unit PO DAILY 04/29/21 08/24/21 hydralazine 10 mg PO DAILY 06/09/21 08/24/21 metoprolol succinate [Toprol XL] 50 mg PO DAILY 06/09/21 08/24/21 prednisolone acetate [Pred Forte] 1 drp EACH EYE DAILY 06/09/21 08/24/21 clopidogrel [Plavix] 75 mg PO DAILY 08/08/21 08/24/21 pantoprazole 40 mg PO Q12H 08/08/21 08/24/21 valacyclovir 500 mg PO BID 08/08/21 08/24/21 Allergies Allergy/AdvReac Type Severity Reaction Status Date / Time Penicillins Allergy Unknown Rash Verified 08/24/21 13:27 Review of Systems Review of Systems: All systems reviewed & are unremarkable except as noted in HPI and below PMFSH Past Medical History Medical History (Updated 08/24/21 @ 20:51 by Sharron Gunderson MD) Anxiety and depression Chronic anemia Chronic kidney disease, stage 3b Creatinine ranges between 1.5 and 2.00 Congestive heart failure Echocardiogram on 07/28/2021 showed normal left ventricular size with mild concentric left ventricular hypertrophy and severe global hypokinesis with no segmental wall abnormalities and a calculated ejection fraction of 38% however visual estimate was in the 25 to 30% range as well as diastolic dysfunction grade 2 with severely enlarged left atrial chamber and a large pericardial effusion, mostly posterior, with right atrial and ventricular collapse consistent with cardiac tamponade physiology. Coronary artery disease With multivessel surgical revascularization with PCI at [place] October 2017. Cardiac catheterization 10/17/2018-mild preserved intra-stent luminal diameter Depression with anxiety Detached retina Right-sided, x2. Frequent headaches Gastroesophageal reflux disease History of GI bleed Hyperlipidemia Hypertension Hypothyroidism Irritable bowel syndrome Ischemic cardiomyopathy Mitral valve prolapse Myasthenia gravis Questionable history of, poorly documented. Obstructive sleep apnea Ocular herpes zoster History of shingles to the left eye, on chronic antiviral therapy. Paroxysmal atrial fibrillation No longer on long-term anticoagulation due to history of falls. Peripheral neuropathy Rectal polyp Restless leg syndrome Shingles Solitary rectal ulcer syndrome Surgical History Surgical History Status post appendectomy Status post bilateral hip replacements Status post bilateral knee replacements Status post breast biopsy Bilateral with benign histology. Status post carpal tunnel release Status post cataract extraction Bilateral. Status post cholecystectomy Status post dilatation of esophageal stricture Status post laminectomy Lumbar spine. Status post LASIK surgery Status post rotator cuff repair Status post tonsillectomy Family History
[2021-08-24] MEDS: BELLADONNA ALK/PHENOB ELIX 10 ML, MAG HYDROX/ALUMINUM HYD/SIMETH 30 ML, LIDOCAINE HCL 2... PO (14:21)
[2021-08-24 14:31] LABS: Basophils Percent Auto 0.6 % (0.2-1.2); Eosinophils Absolute Auto 0.1 K/mm3 (0-0.3); Eosinophils Percent Auto 1.4 % (0-4.4); Hematocrit 22.8 % (37.0-47.0); Hemoglobin 7.6 g/dL (12.0-15.0); Immature Granulocyte Absolute 0.02 K/mm3 (0.00-0.031); Immature Granulocyte Percent A 0.6 % (0-0.5); Lymphocytes Absolute Auto 0.78 K/mm3 (0.9-3.2); Lymphocytes Percent Auto 22.2 % (18.3-44.2); Mean Corpuscular HGB Conc 33.3 g/dl (32-36); Mean Corpuscular Volume 99.1 fl (80-100); Mean Platelet Volume 10.4 fl (7.4-10.4); Monocytes Absolute Auto 0.4 K/mm3 (0.1-0.6); Monocytes Percent Auto 11.1 % (2.6-8.5); Neutrophils Absolute Auto 2.3 K/mm3 (1.3-6.7); Neutrophils Percent Auto 64.1 % (45.5-73.1); Platelet Count Result 195 k/mm3 (150-375); Red Cell Distribution Width 15.4 % (11.5-14.5); White Blood Count 3.5 K/mm3 (4.5-10.0)
[2021-08-24 14:40] LABS: INR 1.1
[2021-08-24 14:41] LABS: Partial Thromboplastin Time 28.3 SECONDS (22.3-36.8)
[2021-08-24 14:48] LABS: Alanine Aminotransferase 17 U/L (4-35); Albumin Level 3.9 g/dL (3.5-5.1); Alkaline Phosphatase 67 U/L (38-126); Anion Gap 10 mmol/L (8-16); Aspartate Amino Transferase 36 U/L (14-36); Bilirubin,Total 0.6 mg/dL (0.2-1.3); Blood Urea Nitrogen 21 mg/dL (7-17); Calcium 8.5 mg/dL (8.4-10.2); Carbon Dioxide 29 mmol/L (22-30); Chloride 96 mmol/L (98-107); Estimated CRCL calculation 19 ml/min; Estimated Glomerular Filt Rate 29; Glucose 97 mg/dL (65-110); Lipase 57 U/L (23-300); Sodium 135 mmol/L (137-145)
[2021-08-24] MEDS: POTASSIUM CHLORIDE 20 MEQ PACKET (FOR LIQUID) PO (14:58)
[2021-08-24 15:06] LABS: Troponin I 0.049 ng/mL (0.000-0.034)
[2021-08-24] MEDS: ACETAMINOPHEN 325 MG TABLET 650 MG PO ×2 (16:23→21:35)
--- NOTE | 2021-08-24 16:45 | PM.IMHP ---
H&P: HPI History of Present Illness Date/Time: 08/24/21 16:45 Chief Complaint: Chest pain. Narrative: This is an 81-year-old female with multiple medical problems including congestive heart failure, chronic kidney disease, chronic anemia, paroxysmal atrial fibrillation, hypertension, hypothyroidism, coronary artery disease previously referred for CABG however deemed to be too frail, anxiety, and several other comorbidities who presented to the emergency department earlier today from home for evaluation of chest pain. At the time my evaluation her only complaint is right low back pain for which she is requesting a heating pad. She did not seem to remember why she was brought to the hospital today and she told me it had something to do with an appointment with Dr. Aj. However she was brought into the emergency department today and reported ?crushing? chest pain on arrival. According to the ED physician note the patient reported left-sided chest pain and abdominal pain that started yesterday and it has been constant since the outset. At this time she denies chest and abdominal pain but ?I am sure I will have it pretty soon.? Her troponin was mildly elevated and she has been admitted in this setting. She has been seen in the ER innumerable times over the last several years with similar complaints and she was hospitalized twice within the past month after presenting with similar symptoms. More recently she was found to have an enlarging pericardial effusion that has been attributed to severe hypothyroidism for which she has had recent adjustments in her levothyroxine. At the time my evaluation she is eating and seems to to be in no distress. She denies fever, chills, sweats, chest pain, pleuritic pain, shortness of breath, abdominal pain, nausea, and vomiting. Review of Systems Review of Systems: Twelve systems were reviewed. omewhat limited as she seems to be getting more and more forgetful. She denies cold and flu symptoms. Reports mild abdominal bloating on occasion but not at this time. Last hospitalization she had issues with urinary retention however she tells me she has been urinating without issue recently. No dysuria or hematuria. No melena or hematochezia. Regarding her back pain, she states this is not a new finding and she has not had any falls or injuries. Except as documented, all other systems were reviewed and are negative. [facility] Past Medical History Medical History Anxiety and depression Chronic anemia Chronic kidney disease, stage 3b Creatinine ranges between 1.5 and 2.00 Congestive heart failure Echocardiogram on 07/28/2021 showed normal left ventricular size with mild concentric left ventricular hypertrophy and severe global hypokinesis with no segmental wall abnormalities and a calculated ejection fraction of 38% however visual estimate was in the 25 to 30% range as well as diastolic dysfunction grade 2 with severely enlarged left atrial chamber and a large pericardial effusion, mostly posterior, with right atrial and ventricular collapse consistent with cardiac tamponade physiology. Coronary artery disease With multivessel surgical revascularization with PCI at [facility] October 2017. Cardiac catheterization 10/17/2018-mild preserved intra-stent luminal diameter Depression with anxiety Detached retina Right-sided, x2. Frequent headaches Gastroesophageal reflux disease History of GI bleed Hyperlipidemia Hypertension Hypothyroidism Irritable bowel syndrome Ischemic cardiomyopathy Mitral valve prolapse Myasthenia gravis Questionable history of, poorly documented. Obstructive sleep apnea Ocular herpes zoster History of shingles to the left eye, on chronic antiviral therapy. Paroxysmal atrial fibrillation No longer on long-term anticoagulation due to history of falls. Peripheral neuropathy Rectal polyp Restless leg syndrome Shingles Solitary rectal ulcer syndrome Surgical
--- NOTE | 2021-08-24 17:36 | PC.NURSE ---
This patient, Dhara Harry, was admitted to IMU Room 202-. Patient/family oriented to hospital policies and general routines including ID bracelet, bed and alarms, visiting hours, pain management, procedures, bathroom and other care routines, personal items, smoking policy, room service/diet, and visiting hours. Information on how to activate the Rapid Response Team has been discussed. Patient/Family are encouraged to report perceived risks to care and to ask questions if they do not understand what they are told or what they should do.
--- NOTE | 2021-08-24 18:09 | PC.NURSE ---
Bladded scanned, 303 ml of urine noted in bladder.
[2021-08-24 20:16] LABS: Troponin I 0.033 ng/mL (0.000-0.034)
[2021-08-25] VITALS (23 sets, daily range): BP systolic 130–149; BP diastolic 76–99; PULSE 67–94; RESP 16–24; TEMP 36.3–37; O2SAT 91–99
[2021-08-25] MEDS: ALPRAZolam (*CRX) 0.25 MG TABLET PO ×3 (00:37→14:56)
[2021-08-25 00:56] LABS: Hematocrit 23.5 % (37.0-47.0); Hemoglobin 7.8 g/dL (12.0-15.0)
[2021-08-25] MEDS: LEVOTHYROXINE SODIUM 75 MCG TABLET PO (06:11)
[2021-08-25] MEDS: LEVOTHYROXINE SODIUM 100 MCG TABLET PO (06:11)
[2021-08-25] MEDS: METOPROLOL SUCCINATE EXT REL 50 MG TABCR PO (07:50)
[2021-08-25] MEDS: FUROSEMIDE 20 MG TABLET PO (07:50)
[2021-08-25] MEDS: valACYclovir HCL 500 MG TABLET PO ×2 (07:51→16:28)
[2021-08-25] MEDS: hydrALAZINE 10 MG TABLET PO (07:51)
[2021-08-25] MEDS: FERROUS SULFATE 324 MG TABLET PO (07:51)
[2021-08-25] MEDS: POTASSIUM CHLORIDE 20 MEQ TABLET 40 MEQ PO ×2 (07:51→16:27)
[2021-08-25] MEDS: ATORVASTATIN 40 MG TABLET PO (07:51)
[2021-08-25] MEDS: CLOPIDOGREL BISULFATE 75 MG TABLET PO (07:51)
[2021-08-25] MEDS: PANTOPRAZOLE 40 MG TABLET PO ×2 (07:51→19:53)
[2021-08-25] MEDS: SACUBITRIL/VALSARTAN 24-26 MG TABLET 1 TAB PO ×2 (07:51→19:53)
[2021-08-25] MEDS: CHOLECALCIFEROL 1,000 UNITS TABLET 5000 UNITS PO (07:51)
[2021-08-25] MEDS: prednisoLONE ACETATE 1% OPHTH 5 ML 1 DROP EACH EYE (07:51)
[2021-08-25] MEDS: ACETAMINOPHEN 325 MG TABLET 650 MG PO ×2 (08:02→14:55)
[2021-08-25 08:05] LABS: Hematocrit 23.6 % (37.0-47.0); Hemoglobin 7.7 g/dL (12.0-15.0); Mean Corpuscular HGB Conc 32.6 g/dl (32-36); Mean Corpuscular Hemoglobin 31.7 pg (26-34); Mean Corpuscular Volume 97.1 fl (80-100); Mean Platelet Volume 10.2 fl (7.4-10.4); Platelet Count Result 192 k/mm3 (150-375); Red Blood Count 2.43 M/mm3 (4.2-5.4); Red Cell Distribution Width 14.6 % (11.5-14.5); White Blood Count 3.8 K/mm3 (4.5-10.0)
[2021-08-25 08:25] LABS: Anion Gap 8 mmol/L (8-16); Blood Urea Nitrogen 24 mg/dL (7-17); Calcium 8.6 mg/dL (8.4-10.2); Carbon Dioxide 27 mmol/L (22-30); Chloride 92 mmol/L (98-107); Estimated CRCL calculation 22 ml/min; Estimated Glomerular Filt Rate 31; Glucose 98 mg/dL (65-110); Magnesium 1.9 mg/dL (1.6-2.3); Potassium 3.2 mmol/L (3.4-5.0); Sodium 127 mmol/L (137-145)
--- NOTE | 2021-08-25 08:44 | ECG_ITS ---
Measurements Intervals [place] Rate: 77 P: DE: 0 QRS: -33 QRSD: 109 T: 34 QT: 401 QTc: 454 Interpretive Statements SINUS RHYTHM ATRIAL AND VENTRICULAR PREMATURE COMPLEXES LEFT AXIS DEVIATION ANTEROSEPTAL INFARCT, AGE INDETERMINATE BORDERLINE T WAVE ABNORMALITY- INFERIOR LEADS BASELINE ARTIFACT- V4-V5 ABNORMAL ECG Electronically Signed On 08-25-2021 9:03:26 DIRECTOR OF CARDIAC CATH LAB by Marlon Joe D.O.
[2021-08-25] MEDS: NITROGLYCERIN SL 0.4 MG TABLET SUBLINGUAL (08:47)
[2021-08-25 10:06] LABS: Free T4 Free Thyroxine Reflex 3.07 ng/dL (0.78-2.19)
--- NOTE | 2021-08-25 10:17 | PM.IMPN ---
Progress Note: A&P Assessment and Plan (1) Chest pain: Qualifiers: Chest pain type: unspecified Qualified Code(s): R07.9 - Chest pain, unspecified Code(s): R07.9 - Chest pain, unspecified Status: Acute Assessment and Plan: The patient came in today with crushing chest pain, troponin telemetry cardiology consult (2) Elevated troponin: Code(s): R79.89 - Other specified abnormal findings of blood chemistry Status: Acute Assessment and Plan: Plan is as detailed above. (3) Pericardial effusion: Code(s): I31.3 - Pericardial effusion (noninflammatory) Status: Acute Assessment and Plan: Effusion still noted on chest x-ray today. (4) Paroxysmal atrial fibrillation: Code(s): I48.0 - Paroxysmal atrial fibrillation Status: Chronic Assessment and Plan: Currently in a sinus rhythm with occasional ectopy. (5) Chronic kidney disease, stage 3: Code(s): N18.3 - Chronic kidney disease, stage 3 (moderate) Status: Acute Assessment and Plan: Kidney function is stable on review of previous labs. (6) Chronic anemia: Code(s): D64.9 - Anemia, unspecified Status: Chronic Assessment and Plan: Hemoglobin is a bit lower than what is it has been running over the past 1 month.hb is 7.7 today can contribute to chest pain (7) Hypothyroidism: Code(s): E03.9 - Hypothyroidism, unspecified Status: Acute Assessment and Plan: Continue levothyroxine and check TSH and free T4. (8) Congestive heart failure: Qualifiers: Heart failure type: unspecified Heart failure chronicity: chronic Qualified Code(s): I50.9 - Heart failure, unspecified Code(s): I50.9 - Heart failure, unspecified Status: Chronic Assessment and Plan: Clinically compensated on exam. Continue Entresto. (9) Hypokalemia: Code(s): E87.6 - Hypokalemia Status: Resolved Assessment and Plan: Potassium will be replaced and monitored. Subjective Date/time seen: 08/25/21 10:17 Interval history: 81-year-old female with multiple medical problems including congestive heart failure, chronic kidney disease, chronic anemia, paroxysmal atrial fibrillation, hypertension, hypothyroidism, coronary artery disease previously referred for CABG however deemed to be too frail, anxiety, and several other comorbidities who presented to the emergency department earlier today from home for evaluation of chest pain. Recently here with pericardial effusion. Seen by cardiology then. Review of Systems Review of Systems: All systems reviewed & are unremarkable except as noted in HPI and below Exam Narrative: General: Thin, frail, chronically ill-appearing elderly female Respiratory: Respirations are even and nonlabored. Lungs are clear to auscultation. Cardiovascular: Regular rate and rhythm with S1-S2. Slightly distant heart sounds. Gastrointestinal: Abdomen is soft and nontender with positive bowel sounds. Bladder feels mildly distended. No voluntary guarding or rebound tenderness. Skin: Warm and dry. Generalized pallor. Extremities: No cyanosis, clubbing, or edema. Radial and pedal pulses intact. Neurological: Alert and oriented to name, age, date of , and year. Pleasantly confused and incoherent Objective Data Vital Signs Vital Signs: Vital Signs - 24 hr 08/24/21 13:14 08/24/21 13:33 08/24/21 13:34 Temperature 36.8 C Pulse Rate 110 H 78 72 Respiratory Rate 14 14 Blood Pressure 133/89 132/94 H Pulse Oximetry 100 96 08/24/21 15:53 08/24/21 17:04 08/24/21 17:30 Temperature 37.3 C Pulse Rate 75 69 80 Respiratory Rate 18 18 18 Blood Pressure 125/96 H 148/92 H 143/97 H Pulse Oximetry 100 100 97 08/24/21 18:00 08/24/21 20:00 08/24/21 20:45 Temperature 36.4 C Pulse Rate 81 78 Respiratory Rate 20 Blood Pressure 128/87 Pulse Oximetry 95 97
--- NOTE | 2021-08-25 11:33 | PM.CNCAR ---
Assessment and Plan Additional Plan -chest pain -abdominal pain -chronic systolic and diastolic heart failure exacerbation. -anemia with hemoglobin baseline around 9-9.5 and this admission 7.7. -coronary artery disease with multiple stents. -large pericardial effusion attributed to hypothyroidism and mentioned in the past by her primary tie worker Dr. Aj not causing hemodynamic compromise and therefore being managed expectantly with the promise that it will resolve upon fixing the hypothyroidism. -paroxysmal atrial fibrillation not on anticoagulation. -CKD stage 4 This is a 81-year-old patient who follows up with Dr. Aj who presents complaining of lower abdominal pain radiating to both lower back area. She mentioned to hospitalist that she had chest pain as well. Her EKG does not show ischemia and troponins mildly elevated and trending down. Takes Plavix 75 mg daily at home. At this time prefer to manage medically given underlying anemia and frailty of the patient. Hopefully chest pain improves after blood transfusion. She presents to the hospital also shortness of breath on exertion, noticed that the hemoglobin has dropped significantly and is trending down.. Plan to transfuse 1 unit of blood today. Unsure the etiology of the anemia however definitely contributing to shortness of breath on exertion. On physical examination she appears to be euvolemic. Continue Entresto, metoprolol. Continue p.o. Lasix. She might need IV Lasix after blood transfusion. Re-evaluate -in regards to paroxysmal atrial fibrillation, currently in sinus rhythm with short bursts of AFib with aberrancy. Continue metoprolol. -underlying CKD stage 4 as well History of Present Illness History of Present Illness Consult date/time: 08/25/21 11:33 Requesting physician: Sharron Gunderson MD Consult reason: chest pain Reason For Visit: chest pain,elevated troponin Narrative: this is a 81-year-old female past medical history hyperlipidemia, ischemic cardiomyopathy CHF with ejection fraction July 2021 are EF 25-30%, multivessel PCI at [facility] with last cardiac catheterization 2018 shows mild InStent restenosis, history of COVID June 2020. She follows up with Dr. Aj She presents to the hospital because of lower abdominal pain in the suprapubic region radiating to the right lower back and then to the mid abdomen. Increasing shortness of breath for the last couple days. Denies lower limb edema, palpitations, dizziness, syncope. She has chronic cough. She denied chest pain to me however upon review of hospitalist history and physical examination indicates that the patient had chest pain on admission. hemoglobin 7.7, troponins 0.049, 0.044, 0.033, creatinine 1.6, potassium 3.2, TSH 13.5, chest x-ray reviewed and analyzed myselfa so shows cardiomegaly echocardiogram July 2021 shows ejection fraction 25-30%, large posterior pericardial effusion with evidence of compression of the right atrium right ventricle, mild MR, TR, severe dilated left atrium. Review of Systems Constitutional: Constitutional: Denies chills, Denies fever(s) and Denies poor appetite Eyes: Eyes: Denies eye discharge, Denies loss of vision, Denies eye pain and Denies photophobia ENT: Denies dizziness, Denies epistaxis, Denies nasal congestion and Denies sore throat Cardiovascular: Cardiovascular: Reports chest pain, Denies syncope, Denies pedal edema, Denies leg edema, Denies palpitations, Reports dyspnea, Reports dyspnea on exertion and Denies orthopnea Respiratory: Respiratory: Reports cough, Reports dyspnea, Reports dyspnea on exertion and Denies wheezing Gastrointestinal: Gastrointestinal: Reports abdominal pain, Denies diarrhea, Denies nausea and Denies vomiting Genitourinary: Genitourinary: Denies hematuria, Denies genital lesions and Denies dysuria Musculoskeletal: Musculoskeletal: Reports arthralgias, Denies joint swelling and Denies numbness Int
[2021-08-25] MEDS: FUROSEMIDE 40 MG TABLET PO (11:49)
[2021-08-25] MEDS: TUBING, BLOOD PLUM PUMP TUBING 1 EACH XX (13:28)
[2021-08-25] MEDS: SODIUM CHLORIDE 0.9% IV 250 ML 30 ML IV CONT (13:28)
--- NOTE | 2021-08-25 14:38 | PC.NURSE ---
On 08/25/21, the student, [Jaja oHff], provided care and completed [facility] documentation on this patient. I have reviewed the student's documentation and agree with the findings.
[2021-08-25] MEDS: NEOMYCIN/POLYMYXIN/BACITRACIN OINTMENT PACKET 2 PACKET (18:32)
[2021-08-26] VITALS (14 sets, daily range): BP systolic 113–146; BP diastolic 77–90; PULSE 87–130; RESP 18–28; TEMP 36.1–37.1; O2SAT 92–98
[2021-08-26] MEDS: ALPRAZolam (*CRX) 0.25 MG TABLET PO ×2 (00:36→10:33)
[2021-08-26] MEDS: LEVOTHYROXINE SODIUM 100 MCG TABLET PO (05:20)
[2021-08-26] MEDS: LEVOTHYROXINE SODIUM 75 MCG TABLET PO (05:20)
[2021-08-26 09:18] LABS: Anion Gap 15 mmol/L (8-16); Blood Urea Nitrogen 29 mg/dL (7-17); Calcium 9.5 mg/dL (8.4-10.2); Carbon Dioxide 22 mmol/L (22-30); Chloride 94 mmol/L (98-107); Estimated CRCL calculation 22 ml/min; Estimated Glomerular Filt Rate 31; Glucose 115 mg/dL (65-110); Potassium 4.1 mmol/L (3.4-5.0); Sodium 131 mmol/L (137-145)
[2021-08-26] MEDS: POTASSIUM CHLORIDE 20 MEQ TABLET 40 MEQ PO (10:32)
[2021-08-26] MEDS: FERROUS SULFATE 324 MG TABLET PO (10:32)
[2021-08-26] MEDS: hydrALAZINE 10 MG TABLET PO (10:32)
[2021-08-26] MEDS: FUROSEMIDE 20 MG TABLET PO (10:33)
[2021-08-26] MEDS: CLOPIDOGREL BISULFATE 75 MG TABLET PO (10:33)
[2021-08-26] MEDS: SACUBITRIL/VALSARTAN 24-26 MG TABLET 1 TAB PO ×2 (10:33→20:28)
[2021-08-26] MEDS: ATORVASTATIN 40 MG TABLET PO (10:33)
[2021-08-26] MEDS: CHOLECALCIFEROL 1,000 UNITS TABLET 5000 UNITS PO (10:33)
[2021-08-26] MEDS: METOPROLOL SUCCINATE EXT REL 50 MG TABCR PO (10:34)
[2021-08-26] MEDS: PANTOPRAZOLE 40 MG TABLET PO ×2 (10:34→20:28)
[2021-08-26] MEDS: prednisoLONE ACETATE 1% OPHTH 5 ML 1 DROP EACH EYE (10:34)
[2021-08-26] MEDS: valACYclovir HCL 500 MG TABLET PO (10:35)
--- NOTE | 2021-08-26 10:44 | PM.PNCARD ---
Progress Note: A&P Additional Plan 81-year-old lady with minimally elevated troponin that is flat probably related to anemia. There is no evidence of acute coronary syndrome and at this point she does not require further cardiac assessment while she is in the hospital. She clearly has had a significant change in her mental status as she is fixated on issues that happened about 6 decades ago and cannot be reoriented to the current situation at least by me. At this point other than continuing her current medical regimen for her ischemic cardiomyopathy should be continued other than this there are no specific recommendations to make. Her troponin levels are not indicative of acute coronary syndrome. Please let me know if you have further questions about this. I will sign off of her inpatient care at this point Nathaniel Aj MD [facility] Subjective Date/time seen: Date of service: 08/26/21 10:44 Interval history: Follow-up visit in this 81-year-old woman with chronic coronary artery disease, ischemic cardiomyopathy previous aggressive PCI done in [place] all of which is well detailed in previous notes. She is admitted to the hospital with ongoing abdominal and chest pain which has been a problem for this lady off and on for a number of years I. After being quite and it is now problematic again in recent weeks. She was admitted couple of weeks ago with this and admitted again yesterday. It is clear to me this is not a cardiac ischemic problem despite ongoing symptoms her troponin levels are minimally elevated but are flat not in a pattern compatible with acute coronary syndrome. She is more anemic and was given a red cell transfusion yesterday the patient does not feel much better after that. It is clear to me her mental status has changed significantly. I have known this patient for years and she has always been lucid. 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 She persists in being very upset about this and despite attempts to reorient is still fixated on this issue. This is not baseline mental status for this lady. Exam Const: General: cooperative, comfortable, no acute distress, alert and awake Nutritional Appearance: well nourished Orientation/consciousness: patient oriented x3 HENMT: Head: normal to inspection, normocephalic and atraumatic Ears: hearing grossly normal bilaterally General nose exam: Normal external nose present, Normal nares present and no nasal discharge noted Face and sinus: normal facial exam and no erythema Mouth: No drooling and No restricted motion Throat: uvula midline Eyes: General: appearance normal, both eyes and all related structures Alignment and Position: position normal Conjunctivae: conjunctivae normal Sclera: sclerae normal Direct Ophthalmoscopy: No photophobia Neck: Neck: normal visual inspection and no JVD Thyroid: thyroid normal Carotids: no bruits Lymphatic: lymphedema not noted Chest: Chest palpation & inspection: normal inspection of the chest and no tenderness Resp: Effort & Inspection: normal respiratory effort and no nasal flaring Auscultation: clear to auscultation bilaterally, no crackles, no rales and no wheezes Cardio: Jugular venous distension: no JVD Rate: regular rate Rhythm: regular rhythm Heart sounds: S1 normal heart sound present, S2 normal heart sound present, no gallops, no murmurs and no rubs GI: Inspection: non-distended Auscultation: normal bowel sounds Rectal Exam: deferred : General: No no CVA tenderness Back/Spine/Pelvis: Back: No no CVA tenderness Cervical Spine: cervical ROM normal Skin: General skin exam: normal color and rashes and/or lesions noted Neuro: General: patient oriented x3 Cranial nerves: No CN's II-XII intact bilaterally Speech: normal speech M
[2021-08-26 11:21] LABS: Hematocrit 35.6 % (37.0-47.0); Hemoglobin 11.7 g/dL (12.0-15.0); Mean Corpuscular HGB Conc 32.9 g/dl (32-36); Mean Corpuscular Hemoglobin 32.2 pg (26-34); Mean Corpuscular Volume 98.1 fl (80-100); Mean Platelet Volume 10.7 fl (7.4-10.4); Platelet Count Result 221 k/mm3 (150-375); Red Blood Count 3.63 M/mm3 (4.2-5.4); Red Cell Distribution Width 16.8 % (11.5-14.5); White Blood Count 5.6 K/mm3 (4.5-10.0)
[2021-08-26] MEDS: ALPRAZolam (*CRX) 0.5 MG TABLET PO ×2 (13:04→21:13)
--- NOTE | 2021-08-26 15:29 | PM.IMPN ---
Progress Note: A&P Assessment and Plan (1) Chest pain: Qualifiers: Chest pain type: unspecified Qualified Code(s): R07.9 - Chest pain, unspecified Code(s): R07.9 - Chest pain, unspecified Status: Acute Assessment and Plan: The patient came in today with crushing chest pain, troponin telemetry cardiology consulted no cardiac issues can be transferred to medical floor (2) Elevated troponin: Code(s): R79.89 - Other specified abnormal findings of blood chemistry Status: Acute Assessment and Plan: Plan is as detailed above. (3) Pericardial effusion: Code(s): I31.3 - Pericardial effusion (noninflammatory) Status: Acute Assessment and Plan: Effusion still noted on chest x-ray today. (4) Paroxysmal atrial fibrillation: Code(s): I48.0 - Paroxysmal atrial fibrillation Status: Chronic Assessment and Plan: Currently in a sinus rhythm with occasional ectopy. (5) Chronic kidney disease, stage 3: Code(s): N18.3 - Chronic kidney disease, stage 3 (moderate) Status: Acute Assessment and Plan: Kidney function is stable on review of previous labs. (6) Chronic anemia: Code(s): D64.9 - Anemia, unspecified Status: Chronic Assessment and Plan: sp blood transfusion hb improved to 11 (7) Hypothyroidism: Code(s): E03.9 - Hypothyroidism, unspecified Status: Acute Assessment and Plan: Continue levothyroxine and check TSH and free T4. (8) Congestive heart failure: Qualifiers: Heart failure type: unspecified Heart failure chronicity: chronic Qualified Code(s): I50.9 - Heart failure, unspecified Code(s): I50.9 - Heart failure, unspecified Status: Chronic Assessment and Plan: Clinically compensated on exam. Continue Entresto. (9) Hypokalemia: Code(s): E87.6 - Hypokalemia Status: Resolved Assessment and Plan: Potassium will be replaced and monitored. Additional Plan Pt is very confused xanax increased seroquel ordered hope daughter can stay with her overnight Subjective Date/time seen: 08/26/21 15:29 Interval history: 81-year-old female with multiple medical problems including congestive heart failure, chronic kidney disease, chronic anemia, paroxysmal atrial fibrillation, hypertension, hypothyroidism, coronary artery disease previously referred for CABG however deemed to be too frail, anxiety, and several other comorbidities who presented to the emergency department earlier today from home for evaluation of chest pain. Pt denies any chest pain today but very confused, daughter stayed with her last night. Review of Systems Review of Systems: All systems reviewed & are unremarkable except as noted in HPI and below Exam Narrative: General: Thin, frail, chronically ill-appearing elderly female, very confused Respiratory: Respirations are even and nonlabored. Lungs are clear to auscultation. Cardiovascular: Regular rate and rhythm with S1-S2. Slightly distant heart sounds. Gastrointestinal: Abdomen is soft and nontender with positive bowel sounds. Bladder feels mildly distended. No voluntary guarding or rebound tenderness. Skin: Warm and dry. Generalized pallor. Extremities: No cyanosis, clubbing, or edema. Radial and pedal pulses intact. Neurological: Disoriented x3 Objective Data Vital Signs Vital Signs: Vital Signs - 24 hr 08/25/21 15:54 08/25/21 16:00 08/25/21 17:57 Temperature 36.6 C Pulse Rate 75 76 83 Respiratory Rate 24 H Blood Pressure 145/95 H Pulse Oximetry 96 08/25/21 19:43 08/25/21 20:00 08/25/21 22:00 Temperature 36.3 C L Pulse Rate 83 94 88 Respiratory Rate 22 H 22 H Blood Pressure 130/93 H Pulse Oximetry 93 93 08/26/21 00:00 08/26/21 02:00 08/26/21 04:00 Temperature 36.6 C 36.7 C Pulse Rate 103 H 87 125 H Respiratory Rate 21 H 20 Blood Pressure
--- NOTE | 2021-08-26 18:41 | PC.NURSE ---
This patient, Dhara Harry, was transferred to [ [id number]] on 08/26/21 at 1841. Personal belongings sent with patient. Report given to [Brenda SALVADOR ]. Appropriate documentation sent with patient.
--- NOTE | 2021-08-26 18:57 | PC.NURSE ---
This patient, Dhara Harry, was received from [] on 08/26/21 at 1850. Patient/family oriented to unit policies and routines
[2021-08-26] MEDS: QUEtiapine FUMARATE 25 MG TABLET PO (20:28)
[2021-08-27] MEDS: ACETAMINOPHEN 325 MG TABLET 650 MG PO ×2 (06:22→12:26)
[2021-08-27] MEDS: LEVOTHYROXINE SODIUM 100 MCG TABLET PO (06:23)
[2021-08-27] MEDS: LEVOTHYROXINE SODIUM 75 MCG TABLET PO (06:23)
[2021-08-27 06:46] VITALS: BP 134/97; PULSE 77; RESP 18; TEMP 36.8; O2SAT 93
[2021-08-27 08:00] VITALS: PULSE 72; RESP 18; O2SAT 93
[2021-08-27] MEDS: CHOLECALCIFEROL 1,000 UNITS TABLET 5000 UNITS PO (09:03)
[2021-08-27] MEDS: POTASSIUM CHLORIDE 20 MEQ TABLET 40 MEQ PO ×2 (09:03→17:23)
[2021-08-27] MEDS: valACYclovir HCL 500 MG TABLET PO ×2 (09:03→17:23)
[2021-08-27 09:04] VITALS: PULSE 72
[2021-08-27] MEDS: METOPROLOL SUCCINATE EXT REL 50 MG TABCR PO (09:04)
[2021-08-27] MEDS: SACUBITRIL/VALSARTAN 24-26 MG TABLET 1 TAB PO ×2 (09:04→20:47)
[2021-08-27] MEDS: CLOPIDOGREL BISULFATE 75 MG TABLET PO (09:04)
[2021-08-27] MEDS: FERROUS SULFATE 324 MG TABLET PO (09:04)
[2021-08-27] MEDS: ATORVASTATIN 40 MG TABLET PO (09:04)
[2021-08-27] MEDS: hydrALAZINE 10 MG TABLET PO (09:04)
[2021-08-27] MEDS: FUROSEMIDE 20 MG TABLET PO (09:05)
[2021-08-27] MEDS: prednisoLONE ACETATE 1% OPHTH 5 ML 1 DROP EACH EYE (09:05)
[2021-08-27] MEDS: PANTOPRAZOLE 40 MG TABLET PO ×2 (09:05→20:46)
[2021-08-27] MEDS: ALPRAZolam (*CRX) 0.5 MG TABLET PO ×2 (09:06→13:18)
--- NOTE | 2021-08-27 11:41 | PM.PNCARD ---
Progress Note: A&P Additional Plan 81-year-old lady with minimally elevated troponin that is flat probably related to anemia. There is no evidence of acute coronary syndrome and at this point she does not require further cardiac assessment while she is in the hospital. She clearly has had a significant change in her mental status as she is fixated on issues that happened about 6 decades ago and cannot be reoriented to the current situation at least by me. At this point other than continuing her current medical regimen for her ischemic cardiomyopathy should be continued other than this there are no specific recommendations to make. Her troponin levels are not indicative of acute coronary syndrome. Please let me know if you have further questions about this. Will sign off Subjective Date/time seen: 08/27/21 11:41 Interval history: 81-year-old woman with chronic coronary artery disease, ischemic cardiomyopathy previous aggressive PCI done in [place] all of which is well detailed in previous notes. She is admitted to the hospital with ongoing abdominal and chest pain which has been a problem for this lady off and on for a number of years Date of service 08/27/2021: A bit more awake alert today. No chest pain. Review of Systems Constitutional: Constitutional: Denies chills, Denies fever(s) and Denies poor appetite Eyes: Eyes: Denies eye discharge, Denies loss of vision, Denies eye pain and Denies photophobia ENT: Denies dizziness, Denies epistaxis, Denies nasal congestion and Denies sore throat Cardiovascular: Cardiovascular: Reports chest pain, Denies syncope, Denies pedal edema, Denies leg edema, Denies palpitations, Reports dyspnea, Reports dyspnea on exertion and Denies orthopnea Respiratory: Respiratory: Reports cough, Reports dyspnea, Reports dyspnea on exertion and Denies wheezing Gastrointestinal: Gastrointestinal: Reports abdominal pain, Denies diarrhea, Denies nausea and Denies vomiting Genitourinary: Genitourinary: Denies hematuria, Denies genital lesions and Denies dysuria Musculoskeletal: Musculoskeletal: Reports arthralgias, Denies joint swelling and Denies numbness Integumentary/Breasts: Skin/Breast: Denies pruritus and Denies rash Neurologic: Denies dizziness, Denies syncope, Denies loss of vision and Denies numbness Psychiatric: Psychiatric: Denies anxiety and Denies depression Endocrine: Endocrine: Denies cold intolerance, Denies heat intolerance and Denies palpitations Hematologic/Lymphatic: Hematologic/Lymphatic: Denies easy bleeding and Denies easy bruising Allergic/Immunologic: Allergic/Immunologic: Denies urticaria and Denies wheezing Exam Const: General: cooperative, comfortable, no acute distress, alert and awake Nutritional Appearance: well nourished Orientation/consciousness: patient oriented x3 HENMT: Head: normal to inspection, normocephalic and atraumatic Ears: hearing grossly normal bilaterally General nose exam: Normal external nose present, Normal nares present and no nasal discharge noted Face and sinus: normal facial exam and no erythema Mouth: No drooling and No restricted motion Throat: uvula midline Eyes: General: appearance normal, both eyes and all related structures Alignment and Position: position normal Conjunctivae: conjunctivae normal Sclera: sclerae normal Direct Ophthalmoscopy: No photophobia Neck: Neck: normal visual inspection and no JVD Thyroid: thyroid normal Carotids: no bruits Lymphatic: lymphedema not noted Chest: Chest palpation & inspection: normal inspection of the chest and no tenderness Resp: Effort & Inspection: normal respiratory effort and no nasal flaring Auscultation: clear to auscultation bilaterally, no crackles, no rales and no wheezes Cardio: Jugular venous distension: no JVD Rate: regular rate Rhythm: regular rhythm Heart sounds: S1 normal heart sound present, S2 normal heart sound present, no gallops, no murmurs and no rubs GI: Inspect
--- NOTE | 2021-08-27 12:14 | PM.DS ---
DS: Discharge Diagnosis Discharge Diagnosis (1) Chest pain: Qualifiers: Chest pain type: unspecified Qualified Code(s): R07.9 - Chest pain, unspecified Code(s): R07.9 - Chest pain, unspecified Status: Acute Assessment and Plan: The patient came in today with crushing chest pain, troponin telemetry cardiology consulted no cardiac issues can be transferred to medical floor (2) Elevated troponin: Code(s): R79.89 - Other specified abnormal findings of blood chemistry Status: Acute Assessment and Plan: Plan is as detailed above. (3) Pericardial effusion: Code(s): I31.3 - Pericardial effusion (noninflammatory) Status: Acute Assessment and Plan: Effusion still noted on chest x-ray today. (4) Paroxysmal atrial fibrillation: Code(s): I48.0 - Paroxysmal atrial fibrillation Status: Chronic Assessment and Plan: Currently in a sinus rhythm with occasional ectopy. (5) Chronic kidney disease, stage 3: Code(s): N18.3 - Chronic kidney disease, stage 3 (moderate) Status: Acute Assessment and Plan: Kidney function is stable on review of previous labs. (6) Chronic anemia: Code(s): D64.9 - Anemia, unspecified Status: Chronic Assessment and Plan: sp blood transfusion hb improved to 11 (7) Hypothyroidism: Code(s): E03.9 - Hypothyroidism, unspecified Status: Acute Assessment and Plan: Continue levothyroxine and check TSH and free T4. (8) Congestive heart failure: Qualifiers: Heart failure type: unspecified Heart failure chronicity: chronic Qualified Code(s): I50.9 - Heart failure, unspecified Code(s): I50.9 - Heart failure, unspecified Status: Chronic Assessment and Plan: Clinically compensated on exam. Continue Entresto. (9) Hypokalemia: Code(s): E87.6 - Hypokalemia Status: Resolved Assessment and Plan: Potassium will be replaced and monitored. DS: Summary Time Spent with Patient Time attestation: Total time spent providing and/or coordinating discharge services: Exam Narrative: General: Thin, frail, chronically ill-appearing elderly female, very confused Respiratory: Respirations are even and nonlabored. Lungs are clear to auscultation. Cardiovascular: Regular rate and rhythm with S1-S2. Slightly distant heart sounds. Gastrointestinal: Abdomen is soft and nontender with positive bowel sounds. Bladder feels mildly distended. No voluntary guarding or rebound tenderness. Skin: Warm and dry. Generalized pallor. Extremities: No cyanosis, clubbing, or edema. Radial and pedal pulses intact. Neurological: Disoriented x3 Discharge Plan Discharge Attending physician on discharge: Melissa Mcmillan Consulting providers: Ernie Odell Discharging Clinician: Melissa Mcmillan Anticipated Discharge Date/Time: 08/27/21 12:13 Patient Disposition: Home, Self-Care Activity: as tolerated Diet: heart healthy Patient Instructions: Antibiotic Form, Heart Failure (GEN) Stand Alone Forms: General Discharge Information Follow-up/Referrals: Nathaniel Aj MD [Primary Care Provider] - (in 4-6 weeks time ) Discharge Medications: New quetiapine [Seroquel] 25 mg Tablet 25 mg PO HS Qty: 30 RF: 2 Continued oxybutynin chloride 10 mg tablet extended release 24hr 10 mg PO DAILY RF: 0 nitroglycerin 0.4 mg tablet, sublingual 0.4 mg sublingual PRN PRN (Reason: Chest Pain) RF: 0 furosemide 20 mg tablet 20 mg PO QAM RF: 0 hydralazine 10 mg tablet 10 mg PO DAILY RF: 0 metoprolol succinate [Toprol XL] 50 mg tablet extended release 24 hr 50 mg PO DAILY RF: 0 prednisolone acetate [Pred Forte] 1 % drops,suspension 1 drp EACH EYE DAILY RF: 0 Entresto 24-26 mg Tablet 1 tablet PO BID RF: 0 cholecalciferol (vitamin D3) 125 mcg (5,000
[2021-08-27] MEDS: PANTOPRAZOLE SODIUM IV 40 MG VIAL IV PUSH (13:16)
--- NOTE | 2021-08-27 15:11 | PM.IMPN ---
Progress Note: A&P Assessment and Plan (1) Chest pain: Qualifiers: Chest pain type: unspecified Qualified Code(s): R07.9 - Chest pain, unspecified Code(s): R07.9 - Chest pain, unspecified Status: Acute Assessment and Plan: The patient came in today with crushing chest pain, troponin telemetry cardiology consulted no cardiac issues, appears more abdominal pains. (2) Elevated troponin: Code(s): R79.89 - Other specified abnormal findings of blood chemistry Status: Acute Assessment and Plan: Plan is as detailed above. (3) Pericardial effusion: Code(s): I31.3 - Pericardial effusion (noninflammatory) Status: Acute Assessment and Plan: Effusion still noted on chest x-ray today. (4) Paroxysmal atrial fibrillation: Code(s): I48.0 - Paroxysmal atrial fibrillation Status: Chronic Assessment and Plan: Currently in a sinus rhythm with occasional ectopy. (5) Chronic kidney disease, stage 3: Code(s): N18.3 - Chronic kidney disease, stage 3 (moderate) Status: Acute Assessment and Plan: Kidney function is stable on review of previous labs. (6) Chronic anemia: Code(s): D64.9 - Anemia, unspecified Status: Chronic Assessment and Plan: sp blood transfusion hb improved to 11 (7) Hypothyroidism: Code(s): E03.9 - Hypothyroidism, unspecified Status: Acute Assessment and Plan: Continue levothyroxine and check TSH and free T4. (8) Congestive heart failure: Qualifiers: Heart failure type: unspecified Heart failure chronicity: chronic Qualified Code(s): I50.9 - Heart failure, unspecified Code(s): I50.9 - Heart failure, unspecified Status: Chronic Assessment and Plan: Clinically compensated on exam. Continue Entresto. (9) Hypokalemia: Code(s): E87.6 - Hypokalemia Status: Resolved Assessment and Plan: Potassium will be replaced and monitored. Additional Plan Pt is diong better on xanax increased seroquel, hopeful dc wes Subjective Date/time seen: 08/27/21 15:11 Interval history: 81-year-old female with multiple medical problems including congestive heart failure, chronic kidney disease, chronic anemia, paroxysmal atrial fibrillation, hypertension, hypothyroidism, coronary artery disease previously referred for CABG however deemed to be too frail, anxiety, and several other comorbidities who presented to the emergency department earlier today from home for evaluation of chest pain. Pt states she is having abdominal pains and discomfort Review of Systems Review of Systems: All systems reviewed & are unremarkable except as noted in HPI and below Exam Narrative: General: Thin, frail, chronically ill-appearing elderly female Respiratory: Respirations are even and nonlabored. Lungs are clear to auscultation. Cardiovascular: Regular rate and rhythm with S1-S2. Slightly distant heart sounds. Gastrointestinal: Abdomen is soft and nontender with positive bowel sounds. Bladder feels mildly distended. No voluntary guarding or rebound tenderness. Skin: Warm and dry. Generalized pallor. Extremities: No cyanosis, clubbing, or edema. Radial and pedal pulses intact. Neurological: Oriented x2 Objective Data Vital Signs Vital Signs: Vital Signs - 24 hr 08/26/21 16:00 08/26/21 18:56 08/26/21 22:11 Temperature 37.1 C 36.4 C 36.1 C L Pulse Rate 130 H 88 88 Respiratory Rate 28 H 20 18 Blood Pressure 137/82 133/77 143/90 H Pulse Oximetry 92 93 96 08/26/21 23:15 08/27/21 06:46 08/27/21 08:00 Temperature 36.8 C Pulse Rate 77 72 Respiratory Rate 18 18 Blood Pressure 134/97 H Pulse Oximetry 94 93 93 08/27/21 09:04 Temperature Pulse Rate 72 Respiratory Rate Blood Pressure Pulse Oximetry Intake/Output Intake/Output: Intake & Output 08/24/21 08/25/21 08/26/21 08/27/21 23:59 23:59 23
[2021-08-27 16:00] VITALS: BP 122/87; PULSE 84; RESP 14; TEMP 36.2; O2SAT 97
[2021-08-27] MEDS: methylPREDNISolone SOD SUCC 40 MG VIAL 20 MG IV PUSH (17:23)
[2021-08-27 19:50] VITALS: PULSE 84; RESP 14; O2SAT 97
[2021-08-27] MEDS: QUEtiapine FUMARATE 25 MG TABLET PO (20:48)
[2021-08-28] VITALS: BP 139/91; PULSE 78; RESP 16; TEMP 36.5; O2SAT 93
[2021-08-28] MEDS: LEVOTHYROXINE SODIUM 75 MCG TABLET PO (06:59)
[2021-08-28] MEDS: LEVOTHYROXINE SODIUM 100 MCG TABLET PO (06:59)
[2021-08-28 08:00] VITALS: PULSE 92; RESP 18; O2SAT 95
[2021-08-28] MEDS: ATORVASTATIN 40 MG TABLET PO (08:44)
[2021-08-28] MEDS: SACUBITRIL/VALSARTAN 24-26 MG TABLET 1 TAB PO ×2 (08:44→20:07)
[2021-08-28] MEDS: POTASSIUM CHLORIDE 20 MEQ TABLET 40 MEQ PO ×2 (08:44→18:06)
[2021-08-28] MEDS: CHOLECALCIFEROL 1,000 UNITS TABLET 5000 UNITS PO (08:44)
[2021-08-28] MEDS: CLOPIDOGREL BISULFATE 75 MG TABLET PO (08:44)
[2021-08-28 08:45] VITALS: PULSE 80
[2021-08-28] MEDS: valACYclovir HCL 500 MG TABLET PO ×2 (08:45→18:07)
[2021-08-28] MEDS: hydrALAZINE 10 MG TABLET PO (08:45)
[2021-08-28] MEDS: PANTOPRAZOLE 40 MG TABLET PO ×2 (08:45→20:07)
[2021-08-28] MEDS: prednisoLONE ACETATE 1% OPHTH 5 ML 1 DROP EACH EYE (08:45)
[2021-08-28] MEDS: FUROSEMIDE 20 MG TABLET PO (08:45)
[2021-08-28] MEDS: METOPROLOL SUCCINATE EXT REL 50 MG TABCR PO (08:45)
[2021-08-28] MEDS: FERROUS SULFATE 324 MG TABLET PO (08:45)
[2021-08-28] MEDS: methylPREDNISolone SOD SUCC 40 MG VIAL 20 MG IV PUSH ×2 (08:45→18:06)
[2021-08-28] MEDS: ALPRAZolam (*CRX) 0.5 MG TABLET PO ×2 (08:47→16:12)
[2021-08-28 11:30] LABS: Anion Gap 11 mmol/L (8-16); Blood Urea Nitrogen 30 mg/dL (7-17); Calcium 8.8 mg/dL (8.4-10.2); Carbon Dioxide 23 mmol/L (22-30); Chloride 104 mmol/L (98-107); Estimated CRCL calculation 24 ml/min; Estimated Glomerular Filt Rate 33; Glucose 170 mg/dL (65-110); Sodium 138 mmol/L (137-145)
--- NOTE | 2021-08-28 14:25 | PM.IMPN ---
Progress Note: A&P Assessment and Plan (1) Chest pain: Qualifiers: Chest pain type: unspecified Qualified Code(s): R07.9 - Chest pain, unspecified Code(s): R07.9 - Chest pain, unspecified Status: Acute Assessment and Plan: The patient came in today with crushing chest pain, troponin telemetry cardiology consulted no cardiac issues. Chest pain - appears more abdominal pains. (2) Elevated troponin: Code(s): R79.89 - Other specified abnormal findings of blood chemistry Status: Acute Assessment and Plan: Plan is as detailed above. (3) Pericardial effusion: Code(s): I31.3 - Pericardial effusion (noninflammatory) Status: Acute Assessment and Plan: Effusion still noted on chest x-ray today. I started iv solumedrol BID (4) Paroxysmal atrial fibrillation: Code(s): I48.0 - Paroxysmal atrial fibrillation Status: Chronic Assessment and Plan: Currently in a sinus rhythm with occasional ectopy. (5) Chronic kidney disease, stage 3: Code(s): N18.3 - Chronic kidney disease, stage 3 (moderate) Status: Acute Assessment and Plan: Kidney function is stable on review of previous labs. creat is 1.5 which is baseline. (6) Chronic anemia: Code(s): D64.9 - Anemia, unspecified Status: Chronic Assessment and Plan: sp blood transfusion hb improved to 11 (7) Hypothyroidism: Code(s): E03.9 - Hypothyroidism, unspecified Status: Acute Assessment and Plan: Continue levothyroxine and check TSH and free T4. (8) Congestive heart failure: Qualifiers: Heart failure type: unspecified Heart failure chronicity: chronic Qualified Code(s): I50.9 - Heart failure, unspecified Code(s): I50.9 - Heart failure, unspecified Status: Chronic Assessment and Plan: Clinically compensated on exam. Continue Entresto. (9) Hypokalemia: Code(s): E87.6 - Hypokalemia Status: Resolved Assessment and Plan: Potassium will be replaced and monitored. Additional Plan Pt is diong better on xanax increased seroquel, hopeful dc soon Subjective Date/time seen: 08/28/21 14:25 Interval history: 81-year-old female with multiple medical problems including congestive heart failure, chronic kidney disease, chronic anemia, paroxysmal atrial fibrillation, hypertension, hypothyroidism, coronary artery disease previously referred for CABG however deemed to be too frail, anxiety, and several other comorbidities who presented to the emergency department earlier today from home for evaluation of chest pain. Pt states she is having abdominal pains and discomfort today. Review of Systems Review of Systems: All systems reviewed & are unremarkable except as noted in HPI and below Exam Narrative: General: Thin, frail, chronically ill-appearing elderly female Respiratory: Respirations are even and nonlabored. Lungs are clear to auscultation. Cardiovascular: Regular rate and rhythm with S1-S2. Slightly distant heart sounds. Gastrointestinal: Abdomen is soft and nontender with positive bowel sounds. Bladder feels mildly distended. No voluntary guarding or rebound tenderness. Skin: Warm and dry. Generalized pallor. Extremities: No cyanosis, clubbing, or edema. Radial and pedal pulses intact. Neurological: Oriented x2 Objective Data Vital Signs Vital Signs: Vital Signs - 24 hr 08/27/21 16:00 08/27/21 19:50 08/28/21 00:00 Temperature 36.2 C L 36.5 C Pulse Rate 84 84 78 Respiratory Rate 14 14 16 Blood Pressure 122/87 139/91 H Pulse Oximetry 97 97 93 08/28/21 08:45 Temperature Pulse Rate 80 Respiratory Rate Blood Pressure Pulse Oximetry Intake/Output Intake/Output: Intake & Output 08/25/21 08/26/21 08/27/21 08/28/21 23:59 23:59 23:59 23:59 Intake Total 930 1000 760 390 Output Total 500 580 252 Balance 430 420 760 138 Meds/Result
[2021-08-28 14:44] VITALS: BP 146/60; PULSE 92; RESP 18; TEMP 37.2; O2SAT 95
--- NOTE | 2021-08-28 15:57 | PCCCNOTE ---
Phone call to talk with bedside RN Debora, she states that she spoke with daughter and daughter is concerned about patient discharging home and she won't be able to come to the area from [place] until Sunday. Advised as this managed care nurse is for ED will need to read managed care nurse notes and speak with floor care coordinators and call her back. Spoke with [employer] Stephani that worked with patient and daughter on Sunday at length. She advises for bedside RN Debora to have Dr. Mcmillan put PT/OT orders. Called Debora back on floor and provided recommendation, She confirms that she will have Dr. Mcmillan put in PT/OT orders for dc planning.
[2021-08-28] MEDS: QUEtiapine FUMARATE 25 MG TABLET PO (20:07)
[2021-08-28 22:00] VITALS: BP 122/67; PULSE 84; RESP 18; TEMP 36.1; O2SAT 95
[2021-08-29] MEDS: LEVOTHYROXINE SODIUM 75 MCG TABLET PO (05:56)
[2021-08-29] MEDS: LEVOTHYROXINE SODIUM 100 MCG TABLET PO (05:56)
[2021-08-29 06:00] VITALS: BP 139/89; PULSE 99; RESP 18; TEMP 36.4; O2SAT 97
[2021-08-29 08:24] LABS: Mean Corpuscular HGB Conc 33.3 g/dl (32-36); Mean Corpuscular Hemoglobin 32.4 pg (26-34); Mean Corpuscular Volume 97.1 fl (80-100); Mean Platelet Volume 11.2 fl (7.4-10.4); Platelet Count Result 214 k/mm3 (150-375); Red Cell Distribution Width 16.2 % (11.5-14.5); White Blood Count 7.8 K/mm3 (4.5-10.0)
[2021-08-29 08:41] LABS: Anion Gap 14 mmol/L (8-16); Blood Urea Nitrogen 37 mg/dL (7-17); Calcium 9.6 mg/dL (8.4-10.2); Carbon Dioxide 21 mmol/L (22-30); Chloride 105 mmol/L (98-107); Estimated CRCL calculation 24 ml/min; Estimated Glomerular Filt Rate 33; Glucose 136 mg/dL (65-110); Potassium 4.2 mmol/L (3.4-5.0); Sodium 140 mmol/L (137-145)
[2021-08-29 10:43] VITALS: PULSE 80
[2021-08-29] MEDS: methylPREDNISolone SOD SUCC 40 MG VIAL 20 MG IV PUSH (10:43)
[2021-08-29] MEDS: valACYclovir HCL 500 MG TABLET PO (10:43)
[2021-08-29] MEDS: METOPROLOL SUCCINATE EXT REL 50 MG TABCR PO (10:43)
[2021-08-29] MEDS: CLOPIDOGREL BISULFATE 75 MG TABLET PO (10:44)
[2021-08-29] MEDS: PANTOPRAZOLE 40 MG TABLET PO (10:45)
[2021-08-29] MEDS: FUROSEMIDE 20 MG TABLET PO (10:45)
[2021-08-29] MEDS: FERROUS SULFATE 324 MG TABLET PO (10:45)
[2021-08-29] MEDS: hydrALAZINE 10 MG TABLET PO (10:45)
[2021-08-29] MEDS: CHOLECALCIFEROL 1,000 UNITS TABLET 5000 UNITS PO (10:45)
[2021-08-29] MEDS: POTASSIUM CHLORIDE 20 MEQ TABLET 40 MEQ PO (10:45)
[2021-08-29] MEDS: SACUBITRIL/VALSARTAN 24-26 MG TABLET 1 TAB PO (10:45)
[2021-08-29] MEDS: ATORVASTATIN 40 MG TABLET PO (10:45)
--- NOTE | 2021-08-29 13:36 | PM.DS ---
DS: Admitting Diagnosis Discharge Date 08/29/2021 Admitting Diagnosis Chest pain DS: Discharge Diagnosis Discharge Diagnosis (1) Chest pain: Qualifiers: Chest pain type: unspecified Qualified Code(s): R07.9 - Chest pain, unspecified Code(s): R07.9 - Chest pain, unspecified Status: Acute Assessment and Plan: She presented with crushing chest pain. She had mildly elevated troponin. She was evaluated by Cardiology and episode was not felt to be consistent with acute coronary syndrome. Chest pain resolved entirely. (2) Elevated troponin: Code(s): R79.89 - Other specified abnormal findings of blood chemistry Status: Acute Assessment and Plan: Mildly elevated, not felt to be consistent with acute coronary syndrome. (3) Pericardial effusion: Code(s): I31.3 - Pericardial effusion (noninflammatory) Status: Acute Assessment and Plan: Chronic and unchanged from prior recent admissions. She has been evaluated by cardiology for this several times and it is stable. The patient remains hemodynamically stable without evidence of cardiac tamponade. She will need to continue outpatient cardiology follow-up. (4) Paroxysmal atrial fibrillation: Code(s): I48.0 - Paroxysmal atrial fibrillation Status: Chronic Assessment and Plan: Rate remained controlled. (5) Chronic kidney disease, stage 3: Code(s): N18.3 - Chronic kidney disease, stage 3 (moderate) Status: Acute Assessment and Plan: Kidney function stable on review of previous labs. (6) Chronic anemia: Code(s): D64.9 - Anemia, unspecified Status: Chronic Assessment and Plan: Hemoglobin was 7.6 upon present station and she was transfused 1 unit PRBC. Hemoglobin increased to 11 and remained stable following transfusion. Continue p.o. ferrous sulfate. (7) Hypothyroidism: Code(s): E03.9 - Hypothyroidism, unspecified Status: Acute Assessment and Plan: TSH elevated but improved from last admission. Her dose was just adjusted 2 weeks prior and therefore no changes made. Continue levothyroxine 175 mcg daily. Repeat reflex TSH in 4-6 weeks from last adjustment. Her level of compliance with her medication regimen is difficult to ascertain. (8) Congestive heart failure: Qualifiers: Heart failure type: unspecified Heart failure chronicity: chronic Qualified Code(s): I50.9 - Heart failure, unspecified Code(s): I50.9 - Heart failure, unspecified Status: Chronic Assessment and Plan: Clinically compensated on exam. Continue Entresto, furosemide, metoprolol. (9) Hypokalemia: Code(s): E87.6 - Hypokalemia Status: Resolved Assessment and Plan: Potassium was low on presentation was supplemented. Levels remained stable following. Continue p.o. potassium chloride 40 mEq b.i.d. DS: Summary Hospital Course Hospital Course: Date of admission: 08/24/2021 Date of discharge: 08/29/2021 Dhara Harry is an 81-year-old female well known to the hospitalist service with history of CHF, CKD, chronic anemia, paroxysmal atrial fibrillation, pericardial effusion, hypertension, hypothyroidism, CAD, and several other medical problems who presented to the emergency department on 08/24/2021 with complaints of left-sided chest pain and abdominal pain. On presentation to the emergency department, she was mildly tachycardic with additional vital signs stable, hemoglobin and hematocrit slightly decreased, potassium 3.0, creatinine 1.7, troponin 0.049, additional laboratory workup unremarkable, CXR with cardiomegaly and pericardial effusion. She was admitted to the hospitalist service for further evaluation and management was seen in consultation by Cardiology. Please see above for further details. Chest pain not felt to be consistent with ACS and did resolve. She was feeling back to h
== END 2021-08-29 14:00 | disposition home health service (06) ==
LOC: ANHED 13:39 → ANHIMU 16:32 → ANH3MEDSUR 08-26 18:54
PROVIDERS: Physician Assistant; Admitting Provider Family Medicine; Emergency Provider General Practice; PCP Family Medicine; Visit Provider Internal Medicine
DX: R07.9 Chest pain, unspecified (principal); R10.9 Unspecified abdominal pain; R77.8 Other specified abnormalities of plasma proteins; I31.3 Pericardial effusion (noninflammatory); I48.0 Paroxysmal atrial fibrillation; I13.0 Hypertensive heart and chronic kidney disease with heart failure and stage 1 through stage 4 chronic kidney disease, or unspecified chronic kidney disease; D64.9 Anemia, unspecified; E87.6 Hypokalemia; N18.31 Chronic kidney disease, stage 3a; I50.42 Chronic combined systolic (congestive) and diastolic (congestive) heart failure; I25.10 Atherosclerotic heart disease of native coronary artery without angina pectoris; F41.8 Other specified anxiety disorders; I34.1 Nonrheumatic mitral (valve) prolapse; K21.9 Gastro-esophageal reflux disease without esophagitis; E78.5 Hyperlipidemia, unspecified; E03.9 Hypothyroidism, unspecified; K58.9 Irritable bowel syndrome, unspecified; I25.5 Ischemic cardiomyopathy; G47.30 Sleep apnea, unspecified; G62.9 Polyneuropathy, unspecified; G25.81 Restless legs syndrome; Z79.02 Long term (current) use of antithrombotics/antiplatelets
CPT/HCPCS: 36415; 36430; 71045; 80048; 80053; 83690; 83735; 84439; 84443; 84484; 85014; 85018; 85025; 85027; 85610; 85730; 86850; 86900; 86901; 86920; 93005; 96374; 96375; 96376; 97161; 97165; 99285; A9270; C9113; G0378; J2920; J7050; P9016

== ENCOUNTER 2021-09-03 15:20 | Emergency (ER) | payer MEDICARE, SELFPAY ==
--- NOTE | ~2021-09-03 | XR_ITS ---
XR chest 2V 09/03/2021 16:40 Indication: Midsternal chest pain Procedure: PA and lateral views of the chest Comparison: Comparison to multiple prior studies sequentially, with oldest reviewed study dated 07/10. Findings: Severe cardiomegaly with atherosclerosis. There is atherosclerosis of the aorta. No focal p neumonia, edema or pneumothorax. There is basilar atelectasis. Impression: 1: Bibasilar atelectasis. 2: Severe cardiomegaly. Reviewed, dictated and finalized at location A. YER HELPER Impression: 1: Bibasilar atelectasis. 2: Severe cardiomegaly.
[2021-09-03 15:23] VITALS: BP 140/80; PULSE 87; RESP 16; TEMP 37.1; O2SAT 99
--- NOTE | 2021-09-03 16:26 | ECG_ITS ---
Measurements Intervals [place] Rate: 95 P: 79 SC: 165 QRS: -31 QRSD: 97 T: 55 QT: 354 QTc: 446 Interpretive Statements SINUS RHYTHM FREQUENT VENTRICULAR PREMATURE COMPLEXES LEFT AXIS DEVIATION ANTEROSEPTAL INFARCT, AGE INDETERMINATE BORDERLINE T WAVE ABNORMALITY- HIGH LATERAL LEADS BASELINE ARTIFACT- I, II, III, AVR, AVL, AVF, V1, V3-V6 ABNORMAL ECG Electronically Signed On 09-04-2021 8:45:[address] [employer] by Marlon Joe D.O.
--- NOTE | 2021-09-03 16:34 | ED.ABDPAIN ---
HPI - Abdominal Pain General Chief Complaint: Abdominal Pain Stated Complaint: abdominal pain Time Seen by Provider: 09/03/21 16:15 Source: patient and family History of Present Illness HPI narrative: Patient reports she is here for her scheduled eye appointment. Family reports she is here for chest and abdominal pain. Patient does report her chest and abdominal pain hurts she describes a burning sensation which she has been here for similar symptoms in the past. Reports she is here for her chest and abdominal pain which she usually comes in for . Have not noted any fevers, cough, congestion, nausea or vomiting. Patient reports she is feeling better from earlier today. Family reports she was crouched over due to pain. She reports she is continuing to have mild symptoms. Related Data Home Medications Medication Instructions Recorded Confirmed furosemide 20 mg tablet 20 mg PO QAM 12/15/20 08/24/21 nitroglycerin 0.4 mg sublingual 0.4 mg SUBLINGUAL PRN PRN 12/15/20 08/24/21 tablet Entresto 1 tablet PO BID 02/10/21 08/24/21 oxybutynin chloride 10 mg 10 mg PO DAILY 04/18/21 08/24/21 tablet,extended release 24 hr cholecalciferol (vitamin D3) 5,000 unit PO DAILY 04/29/21 08/24/21 hydralazine 10 mg PO DAILY 06/09/21 08/24/21 metoprolol succinate [Toprol XL] 50 mg PO DAILY 06/09/21 08/24/21 prednisolone acetate [Pred Forte] 1 drp EACH EYE DAILY 06/09/21 08/24/21 clopidogrel [Plavix] 75 mg PO DAILY 08/08/21 08/24/21 pantoprazole 40 mg PO Q12H 08/08/21 08/24/21 valacyclovir 500 mg PO BID 08/08/21 08/24/21 Allergies Allergy/AdvReac Type Severity Reaction Status Date / Time Penicillins Allergy Unknown Rash Verified 09/02/21 09:09 Review of Systems Review of Systems: CONSTITUTIONAL: Denies fever, chills, or sweats. EYES: Denies visual changes, redness, or discharge. ENT: Denies rhinorrhea, congestion, sore throat, or otalgia. CARDIOVASCULAR: Denies palpitations, or edema. RESPIRATORY: Denies cough or dyspnea. GASTROINTESTINAL: Denies nausea, vomiting, or diarrhea. GENITOURINARY: Denies dysuria or hematuria. SKIN: Denies rash or itching. MUSCULOSKELETAL: Denies back pain, joint pain, or myalgia. NEUROLOGIC: Denies headache, numbness, dizziness, or weakness. PSYCHIATRIC: Denies anxiety or depression. All systems reviewed & are unremarkable except as noted in HPI and below PMFSH Past Medical History Medical History Anxiety and depression Chronic anemia Chronic kidney disease, stage 3b Creatinine ranges between 1.5 and 2.00 Congestive heart failure Echocardiogram on 07/28/2021 showed normal left ventricular size with mild concentric left ventricular hypertrophy and severe global hypokinesis with no segmental wall abnormalities and a calculated ejection fraction of 38% however visual estimate was in the 25 to 30% range as well as diastolic dysfunction grade 2 with severely enlarged left atrial chamber and a large pericardial effusion, mostly posterior, with right atrial and ventricular collapse consistent with cardiac tamponade physiology. Coronary artery disease With multivessel surgical revascularization with PCI at [place] October 2017. Cardiac catheterization 10/17/2018-mild preserved intra-stent luminal diameter Dementia Depression with anxiety Detached retina Right-sided, x2. Frequent headaches Gastroesophageal reflux disease History of GI bleed Hyperlipidemia Hypertension Hypothyroidism Irritable bowel syndrome Ischemic cardiomyopathy Mitral valve prolapse Myasthenia gravis Questionable history of, poorly documented. Obstructive sleep apnea Ocular herpes zoster History of shingles to the left eye, on chronic antiviral therapy. Paroxysmal atrial fibrillation No longer on long-term anticoagulation due to history of falls. Peripheral neuropathy Rectal polyp Restless leg syndrome Shingles Solitary rectal ulcer syndrome Surgical History Surgical History (Review
[2021-09-03 17:14] LABS: Basophils Percent Auto 0.3 % (0.2-1.2); Eosinophils Absolute Auto 0.1 K/mm3 (0-0.3); Eosinophils Percent Auto 1.3 % (0-4.4); Hematocrit 31.4 % (37.0-47.0); Immature Granulocyte Absolute 0.02 K/mm3 (0.00-0.031); Immature Granulocyte Percent A 0.3 % (0-0.5); Lymphocytes Percent Auto 12.5 % (18.3-44.2); Mean Corpuscular HGB Conc 31.8 g/dl (32-36); Mean Corpuscular Hemoglobin 31.8 pg (26-34); Mean Platelet Volume 11.5 fl (7.4-10.4); Monocytes Absolute Auto 0.8 K/mm3 (0.1-0.6); Monocytes Percent Auto 12.1 % (2.6-8.5); Neutrophils Absolute Auto 4.7 K/mm3 (1.3-6.7); Neutrophils Percent Auto 73.5 % (45.5-73.1); Nucleated Red Blood Cells Perc 0.3 % (0.0-0.2); Platelet Count Result 258 k/mm3 (150-375); Red Blood Count 3.14 M/mm3 (4.2-5.4); Red Cell Distribution Width 16.1 % (11.5-14.5); White Blood Count 6.4 K/mm3 (4.5-10.0)
[2021-09-03 17:20] LABS: Add Urine Microscopic? YES; Appearance Urine Clear (Clear); Bacteria Urine 1+ /hpf; Bilirubin Urine Negative (Negative); Blood Urine 1+ (Negative); Color Urine Yellow (Yellow); Glucose Urine UA Negative (Negative); Ketones Urine Negative (Negative); Leukocyte Esterase Ur Negative LEU/UL (Negative); Mucus Urine Rare /lpf; Nitrate Urine Negative (Negative); Protein Urine 1+ mg/dL (Negative); RBC Urine 0-2 /hpf (0-2); Squamous Epithelial Cell Urine Rare /hpf (Few); Urobilinogen Urine Negative mg/dL (<2.0); WBC Urine 0-3 /hpf
[2021-09-03] MEDS: FAMOTIDINE 20 MG/2 ML VIAL IV PUSH (17:20)
[2021-09-03] MEDS: LIDOCAINE HCL 2% VISC SOLN 15 ML UDC 20 ML PO (17:23)
[2021-09-03] MEDS: MAG HYDROX/AL HYDROX/SIMETH 30 ML UDC PO (17:23)
[2021-09-03] MEDS: SODIUM CHLORIDE 0.9% IV 500 ML 999 ML IV CONT (17:25)
[2021-09-03 17:29] LABS: Alanine Aminotransferase 53 U/L (4-35); Albumin Level 4.1 g/dL (3.5-5.1); Alkaline Phosphatase 118 U/L (38-126); Anion Gap 12 mmol/L (8-16); Aspartate Amino Transferase 43 U/L (14-36); Bilirubin,Total 0.7 mg/dL (0.2-1.3); Blood Urea Nitrogen 36 mg/dL (7-17); Calcium 8.7 mg/dL (8.4-10.2); Carbon Dioxide 22 mmol/L (22-30); Chloride 102 mmol/L (98-107); Estimated CRCL calculation 23 ml/min; Estimated Glomerular Filt Rate 33; Glucose 106 mg/dL (65-110); Lipase 82 U/L (23-300); Potassium 3.6 mmol/L (3.4-5.0); Sodium 136 mmol/L (137-145)
[2021-09-03 17:41] LABS: Troponin I 0.013 ng/mL (0.000-0.034)
== END 2021-09-03 18:49 | disposition home or self-care (01) ==
PROVIDERS: Emergency Provider Emergency Medicine; PCP Family Medicine
DX: K29.50 Unspecified chronic gastritis without bleeding (principal); I13.0 Hypertensive heart and chronic kidney disease with heart failure and stage 1 through stage 4 chronic kidney disease, or unspecified chronic kidney disease; N18.32 Chronic kidney disease, stage 3b; I50.40 Unspecified combined systolic (congestive) and diastolic (congestive) heart failure; D63.1 Anemia in chronic kidney disease; I25.10 Atherosclerotic heart disease of native coronary artery without angina pectoris; E78.5 Hyperlipidemia, unspecified; I48.0 Paroxysmal atrial fibrillation; I25.5 Ischemic cardiomyopathy; E03.9 Hypothyroidism, unspecified; G25.81 Restless legs syndrome; G47.33 Obstructive sleep apnea (adult) (pediatric); K58.9 Irritable bowel syndrome, unspecified; F41.8 Other specified anxiety disorders; K62.6 Ulcer of anus and rectum; K21.9 Gastro-esophageal reflux disease without esophagitis; G62.9 Polyneuropathy, unspecified; Z98.42 Cataract extraction status, left eye; Z98.41 Cataract extraction status, right eye; Z96.643 Presence of artificial hip joint, bilateral; Z96.653 Presence of artificial knee joint, bilateral; Z95.5 Presence of coronary angioplasty implant and graft; Z79.02 Long term (current) use of antithrombotics/antiplatelets; R94.31 Abnormal electrocardiogram [ECG] [EKG]; I51.7 Cardiomegaly
CPT/HCPCS: 36415; 71046; 80053; 81001; 83690; 84484; 85025; 93005; 96365; 96375; 99284; A9270; J0131; J7040

== ENCOUNTER 2021-09-06 07:55 | Emergency (ER) | payer MEDICARE, SELFPAY ==
[2021-09-06 08:12] VITALS: BP 125/84; PULSE 91; RESP 17; TEMP 36.7; O2SAT 96
[2021-09-06 08:19] LABS: Basophils Percent Auto 0.3 % (0.2-1.2); Eosinophils Absolute Auto 0.1 K/mm3 (0-0.3); Eosinophils Percent Auto 1.3 % (0-4.4); Hematocrit 29.3 % (37.0-47.0); Hemoglobin 9.4 g/dL (12.0-15.0); Immature Granulocyte Absolute 0.03 K/mm3 (0.00-0.031); Immature Granulocyte Percent A 0.5 % (0-0.5); Lymphocytes Absolute Auto 0.69 K/mm3 (0.9-3.2); Lymphocytes Percent Auto 10.9 % (18.3-44.2); Mean Corpuscular HGB Conc 32.1 g/dl (32-36); Mean Corpuscular Hemoglobin 32.4 pg (26-34); Mean Platelet Volume 11.2 fl (7.4-10.4); Monocytes Absolute Auto 0.7 K/mm3 (0.1-0.6); Monocytes Percent Auto 11.6 % (2.6-8.5); Neutrophils Absolute Auto 4.8 K/mm3 (1.3-6.7); Neutrophils Percent Auto 75.4 % (45.5-73.1); Platelet Count Result 231 k/mm3 (150-375); Red Cell Distribution Width 16.3 % (11.5-14.5); White Blood Count 6.3 K/mm3 (4.5-10.0)
[2021-09-06 08:26] LABS: INR 1.3; Prothrombin Time 15.7 Seconds (11.1-14.7)
[2021-09-06 08:27] LABS: Partial Thromboplastin Time 30.5 SECONDS (22.3-36.8)
[2021-09-06 08:28] LABS: Alanine Aminotransferase 39 U/L (4-35); Albumin Level 3.8 g/dL (3.5-5.1); Alkaline Phosphatase 130 U/L (38-126); Anion Gap 10 mmol/L (8-16); Aspartate Amino Transferase 32 U/L (14-36); Bilirubin,Total 0.7 mg/dL (0.2-1.3); Blood Urea Nitrogen 36 mg/dL (7-17); Calcium 8.6 mg/dL (8.4-10.2); Carbon Dioxide 22 mmol/L (22-30); Chloride 105 mmol/L (98-107); Estimated CRCL calculation 21 ml/min; Estimated Glomerular Filt Rate 29; Glucose 122 mg/dL (65-110); Potassium 3.4 mmol/L (3.4-5.0); Sodium 137 mmol/L (137-145)
--- NOTE | 2021-09-06 08:29 | PCCCNOTE ---
Visited pt while in ED about any needs when discharged. States she lives with her and they do well together. She uses a cane to ambulate and most of the time her cooks. She states she eats well. She states she has seen a GI MD in the past and was told she has no GI issues. She states she does have a history of CHF and diverticulitis. Her daughter lives in [place]. Pt states she has no needs.
[2021-09-06 08:45] VITALS: BP 138/78; PULSE 93; RESP 19; O2SAT 99
--- NOTE | 2021-09-06 09:28 | ED.GENADULT ---
HPI - General Adult General Chief complaint: GI Bleed Stated complaint: abd pain Time Seen by Provider: 09/06/21 08:13 Source: patient History of Present Illness HPI narrative: Patient is a 81 y/o female have multiple complaints. She states that she has been having diffuse prickling chest pain and abdominal pain for 2 days. She rates her pain as 10/10. There is no alleviating or exacerbating factor. She also complains of difficult with urination. She has some blood in stool. Related Data Home Medications Medication Instructions Recorded Confirmed furosemide 20 mg tablet 20 mg PO QAM 12/15/20 08/24/21 nitroglycerin 0.4 mg sublingual 0.4 mg SUBLINGUAL PRN PRN 12/15/20 08/24/21 tablet Entresto 1 tablet PO BID 02/10/21 08/24/21 oxybutynin chloride 10 mg 10 mg PO DAILY 04/18/21 08/24/21 tablet,extended release 24 hr cholecalciferol (vitamin D3) 5,000 unit PO DAILY 04/29/21 08/24/21 hydralazine 10 mg PO DAILY 06/09/21 08/24/21 metoprolol succinate [Toprol XL] 50 mg PO DAILY 06/09/21 08/24/21 prednisolone acetate [Pred Forte] 1 drp EACH EYE DAILY 06/09/21 08/24/21 clopidogrel [Plavix] 75 mg PO DAILY 08/08/21 08/24/21 pantoprazole 40 mg PO Q12H 08/08/21 08/24/21 valacyclovir 500 mg PO BID 08/08/21 08/24/21 Allergies Allergy/AdvReac Type Severity Reaction Status Date / Time Penicillins Allergy Unknown Rash Verified 09/06/21 08:15 Review of Systems Constitutional: Constitutional: Denies chills, Denies fever(s), Denies headache(s) and Denies weakness Eyes: Eyes: Denies blurry vision ENT: Denies headache(s) and Denies neck pain Cardiovascular: Cardiovascular: Reports chest pain and Denies dyspnea Respiratory: Respiratory: Denies cough and Denies dyspnea Gastrointestinal: Gastrointestinal: Reports abdominal pain, Reports hematochezia, Denies diarrhea, Denies nausea and Denies vomiting Genitourinary: Genitourinary: Denies hematuria and Denies dysuria Musculoskeletal: Musculoskeletal: Denies back pain and Denies neck pain Neurologic: Denies headache(s) and Denies weakness PMFSH Past Medical History Medical History Anxiety and depression Chronic anemia Chronic kidney disease, stage 3b Creatinine ranges between 1.5 and 2.00 Congestive heart failure Echocardiogram on 07/28/2021 showed normal left ventricular size with mild concentric left ventricular hypertrophy and severe global hypokinesis with no segmental wall abnormalities and a calculated ejection fraction of 38% however visual estimate was in the 25 to 30% range as well as diastolic dysfunction grade 2 with severely enlarged left atrial chamber and a large pericardial effusion, mostly posterior, with right atrial and ventricular collapse consistent with cardiac tamponade physiology. Coronary artery disease With multivessel surgical revascularization with PCI at [facility] October 2017. Cardiac catheterization 10/17/2018-mild preserved intra-stent luminal diameter Dementia Depression with anxiety Detached retina Right-sided, x2. Frequent headaches Gastroesophageal reflux disease History of GI bleed Hyperlipidemia Hypertension Hypothyroidism Irritable bowel syndrome Ischemic cardiomyopathy Mitral valve prolapse Myasthenia gravis Questionable history of, poorly documented. Obstructive sleep apnea Ocular herpes zoster History of shingles to the left eye, on chronic antiviral therapy. Paroxysmal atrial fibrillation No longer on long-term anticoagulation due to history of falls. Peripheral neuropathy Rectal polyp Restless leg syndrome Shingles Solitary rectal ulcer syndrome Surgical History Surgical History Status post appendectomy Status post bilateral hip replacements Status post bilateral knee replacements Status post breast biopsy Bilateral with benign histology. Status post carpal tunnel release Status post cataract extraction Bilateral. Status
[2021-09-06] MEDS: BELLADONNA ALK/PHENOB ELIX 10 ML, MAG HYDROX/ALUMINUM HYD/SIMETH 30 ML, LIDOCAINE HCL 2... PO (10:50)
[2021-09-06 12:49] VITALS: BP 139/98; PULSE 97; RESP 19; O2SAT 96
== END 2021-09-06 12:51 | disposition left against medical advice (07) ==
PROVIDERS: Emergency Provider Emergency Medicine; PCP Family Medicine
DX: R07.9 Chest pain, unspecified (principal); R10.9 Unspecified abdominal pain; F41.9 Anxiety disorder, unspecified; F32.9 Major depressive disorder, single episode, unspecified; I13.0 Hypertensive heart and chronic kidney disease with heart failure and stage 1 through stage 4 chronic kidney disease, or unspecified chronic kidney disease; N18.32 Chronic kidney disease, stage 3b; I50.9 Heart failure, unspecified; I25.10 Atherosclerotic heart disease of native coronary artery without angina pectoris; K21.9 Gastro-esophageal reflux disease without esophagitis; E78.5 Hyperlipidemia, unspecified; I48.91 Unspecified atrial fibrillation; G25.81 Restless legs syndrome; G47.30 Sleep apnea, unspecified; G62.9 Polyneuropathy, unspecified; Z96.653 Presence of artificial knee joint, bilateral; Z96.643 Presence of artificial hip joint, bilateral; Z91.81 History of falling
CPT/HCPCS: 36415; 80053; 85025; 85610; 85730; 86850; 86900; 86901; 99283; A9270

== ENCOUNTER 2021-09-10 06:20 | Inpatient (IN) | payer MEDICARE, SELFPAY ==
[2021-09-10] VITALS (16 sets, daily range): BP systolic 127–151; BP diastolic 85–104; PULSE 54–120; RESP 13–26; TEMP 36.7–37; O2SAT 98–100
--- NOTE | ~2021-09-10 | XR_ITS ---
EXAMINATION: XR chest 2V DATE: 09/16/2021 14:14 INDICATION: Cough TECHNIQUE: frontal and lateral views of the chest were obtained. COMPARISON: Chest radiograph dated 09/10/2021 FINDINGS: Mild increased interstitial pattern at the bilateral lower lung zones consistent with mild pulmonary edema. Additional airspace opacities at the bilateral lung bases consistent with small bilateral pleu ral effusions and associated atelectasis and/or pneumonia, left greater than right. No pneumothorax. Markedly enlarged cardiac silhouette correspond to moderate cardiomegaly along with a large pericardi al effusion on prior MRI dated 04/27. Coronary artery stenting. Degenerative skeletal changes in the spine and at both shoulders with large loose osteochondral body at the right shoulder likely nori ng the long head biceps tendon sheath. Widening of the bilateral acromioclavicular joint spaces sugge sting prior distal clavicle resections. IMPRESSION: 1. Small bilateral pleural effusions with bibasilar atelectasis and/or pneumonia, left greater than r ight. 2. Mild pulmonary edema at the lower lung zones likely related to congestive heart failure. 3. Markedly enlarged cardiac silhouette which on recent prior MRI corresponded with moderate cardiome kiley and a large pericardial effusion. Reviewed, dictated and finalized at location B. HAZARD INSPECTOR IMPRESSION: 1. Small bilateral pleural effusions with bibasilar atelectasis and/or pneumoni a, left greater than right. 2. Mild pulmonary edema at the lower lung zones likely related to congestive he art failure. 3. Markedly enlarged cardiac silhouette which on recent prior MRI corresponded with moderate cardiomegaly and a large pericardial effusion.
--- NOTE | ~2021-09-10 | CT_ITS ---
EXAMINATION: CT brain wo con DATE: 09/10/2021 06:50 INDICATION: Altered mental status TECHNIQUE: Computed tomography (CT) of the head was performed without intravenous contrast. Sagittal and coronal reconstructions were performed. The mA was adjusted according to patient size. Iterative reconstruction technique was employed. The dose-length product was 681.00 mGy-cm. COMPARISON: None FINDINGS: No acute intracranial hemorrhage, acute infarction or abnormal extra axial fluid collection. There is mild scattered white matter hypoattenuation consistent with chronic small vessel ischemic disease. V entricles are normal and symmetric. No mass/mass effect. Small mucous retention cyst in the right max illary sinus. Changes of bilateral intraocular lens replacement. Mastoid air cells and middle ear cav ities are clear. IMPRESSION: 1. No acute intracranial process. 2. Mild scattered white matter hypoattenuation consistent with chronic small vessel ischemic disease. Reviewed, dictated and finalized at location A. ALIZER IMPRESSION: 1. No acute intracranial process. 2. Mild scattered white matter hypoattenuation consistent with chronic small ve ssel ischemic disease.
--- NOTE | ~2021-09-10 | MR_ITS ---
EXAMINATION: MR MRCP wo con/w 3D wo ind pp DATE: 09/13/2021 14:47 INDICATION: Transaminitis. Biliary dilation. TECHNIQUE: Magnetic resonance imaging (MRI) of the abdomen was performed without intravenous contrast . Sequences included coronal T2-weighted SS-FSE, coronal T2-weighted FS SS-FSE, coronal T2-weighted F S FIESTA, axial T2-weighted FS FIESTA, axial T2-weighted FIESTA, sagittal T2-weighted SS-FSE, axial T 1-weighted dual-echo FSPGR, axial T2-weighted SS-FSE, axial T1-weighted LAVA, axial T2-weighted STIR FSE. Thick-slab T2-weighted FRFSE-XL images were obtained for magnetic resonance cholangiopancreatogr aphy (MRCP). Rotating maximum intensity projection 3-D reconstructions of the volumetric data were cr eated by the technologist. COMPARISON: Ultrasound dated 09/11/[address] dated 08/08/2021 FINDINGS: ABDOMEN MRI: Moderate cardiomegaly along with large pericardial effusion. Small left and [id number] right p leural effusions. Liver is normal with no intrahepatic biliary ductal dilation. Gallbladder surgicall y absent. Pancreas is normal with no dilation of the main pancreatic duct. Spleen and bilateral adren al glands are normal. Multiple bilateral renal cysts. No dilated bowel to suggest obstruction. Diffus e edema in the mesentery, retroperitoneum and abdominal and pelvic wall. Mild lumbar levocurvature wi th severe spondylosis. ABDOMEN MRCP: Common bile duct is dilated to 11 mm in the mid duct and 6 mm distal duct with smooth tapering at the ampulla without evident obstructing stone or mass. IMPRESSION: 1. Mild dilation of the common bile duct likely related to prior cholecystectomy and sphincterotomy. No intrapedicular ductal dilation or obstructing stone or mass. 2. Anasarca with small left and small to moderate right pleural effusions, large pericardial effusion and extensive soft tissue edema throughout the mesentery, retroperitoneum and body wall. 3. Moderate cardiomegaly. Reviewed, dictated and finalized at location B. ERICAN HISTORY PROFESSOR IMPRESSION: 1. Mild dilation of the common bile duct likely related to prior cholecystectom y and sphincterotomy. No intrapedicular ductal dilation or obstructing stone or mass. 2. Anasarca with small left and small to moderate right pleural effusions, larg e pericardial effusion and extensive soft tissue edema throughout the mesentery , retroperitoneum and body wall. 3. Moderate cardiomegaly.
--- NOTE | ~2021-09-10 | US_ITS ---
EXAMINATION: US abdomen limited DATE: 09/11/2021 08:49 INDICATION: Elevated liver enzymes TECHNIQUE: Multiple grayscale and Doppler ultrasound images of the abdomen were obtained. COMPARISON: CT dated 08/08/2021 FINDINGS: The pancreatic head and body are normal in appearance. The pancreatic tail is not visualized. Liver has normal echogenicity and contour, with a smooth surface. No liver lesion identified. Portal venous flow was seen in the hepatopetal, normal direction and has normal Doppler waveform. There is mild ce ntral intrahepatic biliary ductal dilation along with dilation of the common bile duct which measures up to 9 mm in maximal diameter Gallbladder is not visualized and likely surgically absent surgical c lips at the gallbladder fossa seen on prior CT. Small right pleural effusion. IMPRESSION: 1. Mild dilation of the common bile duct and central intrahepatic biliary ducts which is within toro l limits post cholecystectomy. Given the reported elevated liver enzymes could consider further evalu ation with MRCP. Reviewed, dictated and finalized at location A. ICAL ESTHETICIAN IMPRESSION: 1. Mild dilation of the common bile duct and central intrahepatic biliary ducts which is within normal limits post cholecystectomy. Given the reported elevate d liver enzymes could consider further evaluation with MRCP.
--- NOTE | ~2021-09-10 | XR_ITS ---
EXAMINATION: XR chest 2V DATE: 09/10/2021 07:52 INDICATION: Altered mental status. Increased confusion and weakness TECHNIQUE: frontal view of the chest was obtained. COMPARISON: Chest radiograph dated 09/03/[address] dated 08/08/2021 FINDINGS: Marked enlargement of the cardiac silhouette which on an earlier CT corresponded to a combination of cardiomegaly and a large pericardial effusion. Small bilateral pleural effusions with associated basi lar atelectasis and/or pneumonia, left greater than right. Increased interstitial pattern in the righ t lower lung zone consistent with mild pulmonary edema. No pneumothorax. Urinary artery stenting. Mod erate degenerative skeletal changes in the spine and at both shoulders along with change of prior chetna ateral distal clavicle resections. IMPRESSION: 1. Marked enlargement of the cardiac silhouette likely combination of cardiomegaly and persistent per icardial effusion. 2. Likely congestive heart failure with mild pulmonary edema in the lower lungs along with small bila teral pleural effusions. Differential includes pneumonia. Reviewed, dictated and finalized at location A. TREATMENT TECHNICIAN IMPRESSION: 1. Marked enlargement of the cardiac silhouette likely combination of cardiomeg [place] and persistent pericardial effusion. 2. Likely congestive heart failure with mild pulmonary edema in the lower lungs along with small bilateral pleural effusions. Differential includes pneumonia.
--- NOTE | 2021-09-10 06:28 | ECG_ITS ---
Measurements Intervals [place] Rate: 81 P: 100 NH: 149 QRS: -40 QRSD: 105 T: -56 QT: 409 QTc: 477 Interpretive Statements SINUS RHYTHM FREQUENT ATRIAL AND VENTRICULAR PREMATURE COMPLEXES LEFT ATRIAL ENLARGEMENT LEFT AXIS DEVIATION ANTEROSEPTAL INFARCT, AGE INDETERMINATE BORDERLINE T WAVE ABNORMALITY- INFERIOR LEADS ABNORMAL ECG Electronically Signed On 09-10-2021 7:03:56 SHAPE CARVER by Marlon Joe D.O.
[2021-09-10 07:02] LABS: Basophils Percent Auto 0.4 % (0.2-1.2); Eosinophils Percent Auto 0.5 % (0-4.4); Hematocrit 30.6 % (37.0-47.0); Hemoglobin 9.9 g/dL (12.0-15.0); Immature Granulocyte Absolute 0.03 K/mm3 (0.00-0.031); Immature Granulocyte Percent A 0.4 % (0-0.5); Lymphocytes Absolute Auto 0.66 K/mm3 (0.9-3.2); Mean Corpuscular HGB Conc 32.4 g/dl (32-36); Mean Corpuscular Hemoglobin 32.5 pg (26-34); Mean Corpuscular Volume 100.3 fl (80-100); Mean Platelet Volume 11.6 fl (7.4-10.4); Monocytes Absolute Auto 0.7 K/mm3 (0.1-0.6); Monocytes Percent Auto 8.9 % (2.6-8.5); Neutrophils Absolute Auto 5.9 K/mm3 (1.3-6.7); Neutrophils Percent Auto 80.8 % (45.5-73.1); Nucleated Red Blood Cells Perc 0.3 % (0.0-0.2); Platelet Count Result 170 k/mm3 (150-375); Red Blood Count 3.05 M/mm3 (4.2-5.4); Red Cell Distribution Width 16.8 % (11.5-14.5); White Blood Count 7.3 K/mm3 (4.5-10.0)
[2021-09-10 07:04] LABS: INR 1.6; Prothrombin Time 18.3 Seconds (11.1-14.7)
[2021-09-10 07:05] LABS: Partial Thromboplastin Time 32.8 SECONDS (22.3-36.8)
[2021-09-10 07:07] LABS: Alanine Aminotransferase 341 U/L (4-35); Albumin Level 3.2 g/dL (3.5-5.1); Alkaline Phosphatase 176 U/L (38-126); Anion Gap 10 mmol/L (8-16); Aspartate Amino Transferase 267 U/L (14-36); Bilirubin,Total 1.1 mg/dL (0.2-1.3); Blood Urea Nitrogen 37 mg/dL (7-17); Calcium 8.4 mg/dL (8.4-10.2); Carbon Dioxide 21 mmol/L (22-30); Chloride 104 mmol/L (98-107); Estimated CRCL calculation 19 ml/min; Estimated Glomerular Filt Rate 31; Glucose 109 mg/dL (65-110); Potassium 2.8 mmol/L (3.4-5.0); Sodium 135 mmol/L (137-145)
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
[2021-09-10] MEDS: POTASSIUM CHLORIDE 20 MEQ PACKET (FOR LIQUID) 40 MEQ PO (08:21)
--- NOTE | 2021-09-10 08:43 | PC.NURSE ---
Pt was taken to the bathroom and no sample was collected
[2021-09-10 08:44] LABS: Free T4 Free Thyroxine 3.68 ng/mL (0.78-2.19)
--- NOTE | 2021-09-10 08:51 | PC.NURSE ---
Spoke with patients daughter. She lives in [place] but will be coming here tomorrow around noon. She has been working with care coordination on getting her a bed at [facility]. Pt believes that her home is not her home and her is not her . She keeps asking her daughter where her is that several years ago. She often asks for her daughter pillo but does not recognize her when she sees her.
[2021-09-10 08:58] LABS: Thyroid Stimulating Hormone Reflex 0.815 uIU/mL (0.465-4.68)
[2021-09-10 10:01] LABS: Add Urine Microscopic? YES; Appearance Urine Cloudy (Clear); Bacteria Urine Trace /hpf; Bilirubin Urine Negative (Negative); Blood Urine 1+ (Negative); Color Urine Yellow (Yellow); Glucose Urine UA Negative (Negative); Ketones Urine Negative (Negative); Leukocyte Esterase Ur 1+ LEU/UL (Negative); Nitrate Urine Negative (Negative); Protein Urine 1+ mg/dL (Negative); Specific Grav Ur 1.013 (1.001-1.035); Squamous Epithelial Cell Urine Many /hpf (Few); Urobilinogen Urine Negative mg/dL (<2.0)
--- NOTE | 2021-09-10 11:30 | PC.NURSE ---
Pt seems to be more confused at this time. Pt keeps sitting up in bed. Pt placed on bed alarm, call light in reach, lights dimmed
--- NOTE | 2021-09-10 13:15 | PC.NURSE ---
Pt continues to attempt to get out of bed. Spoke with Shira, she gave order for 10mg Zyprexa
[2021-09-10] MEDS: OLANZapine 10 MG INJ VIAL IM (13:32)
[2021-09-10] MEDS: WATER, STERILE FOR INJECTION 10 ML VIAL XX (13:33)
[2021-09-10] MEDS: LORazepam INJ (*CRX) 2 MG/ML VIAL 0.5 MG IV PUSH (14:55)
--- NOTE | 2021-09-10 15:00 | PC.NURSE ---
Pt hallucinating. Grabbing at things that are not there, talking to people that are not there.
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
--- NOTE | 2021-09-10 16:58 | PC.NURSE ---
pt continues to be restless and confused. call light in reach, on bed alarm
[2021-09-10 17:54] LABS: Hepatitis B Surface Antigen Negative (Negative)
[2021-09-10 18:00] LABS: HAV RESULT Negative (Negative); Hepatitis B Core IgM Result Negative (Negative)
[2021-09-10 18:12] LABS: Hepatitis C Virus Antibody Negative (Negative)
[2021-09-10 18:33] LABS: Anion Gap 19 mmol/L (8-16); Blood Urea Nitrogen 37 mg/dL (7-17); Calcium 9.3 mg/dL (8.4-10.2); Carbon Dioxide 14 mmol/L (22-30); Chloride 109 mmol/L (98-107); Estimated CRCL calculation 21 ml/min; Estimated Glomerular Filt Rate 33; Glucose 159 mg/dL (65-110); Potassium 4.1 mmol/L (3.4-5.0); Sodium 142 mmol/L (137-145)
--- NOTE | 2021-09-10 18:46 | ADMGEN ---
This patient, Dhara Harry, was admitted to 2 Medical Room 240-. Patient/family oriented to hospital policies and general routines including ID bracelet, bed and alarms, visiting hours, pain management, procedures, bathroom and other care routines, personal items, smoking policy, room service/diet, and visiting hours. Information on how to activate the Rapid Response Team has been discussed. Patient/Family are encouraged to report perceived risks to care and to ask questions if they do not understand what they are told or what they should do. Report received from MODESTO Berkowitz.
[2021-09-10] MEDS: PANTOPRAZOLE 40 MG TABLET PO (22:12)
[2021-09-10] MEDS: valACYclovir HCL 500 MG TABLET PO (22:14)
[2021-09-10] MEDS: SACUBITRIL/VALSARTAN 24-26 MG TABLET 1 TAB PO (22:14)
[2021-09-10] MEDS: QUEtiapine FUMARATE 25 MG TABLET PO (22:15)
[2021-09-10] MEDS: POTASSIUM CHLORIDE 10 MEQ TABLET.ER 40 MEQ PO (22:15)
[2021-09-11] VITALS (11 sets, daily range): BP systolic 110–142; BP diastolic 84–99; PULSE 80–119; RESP 20–36; TEMP 36.1–36.8; O2SAT 96–98
[2021-09-11 05:45] LABS: Basophils Percent Auto 0.3 % (0.2-1.2); Eosinophils Percent Auto 0.1 % (0-4.4); Hematocrit 31.9 % (37.0-47.0); Hemoglobin 10.4 g/dL (12.0-15.0); Immature Granulocyte Absolute 0.03 K/mm3 (0.00-0.031); Immature Granulocyte Percent A 0.4 % (0-0.5); Lymphocytes Absolute Auto 0.65 K/mm3 (0.9-3.2); Lymphocytes Percent Auto 9.5 % (18.3-44.2); Mean Corpuscular HGB Conc 32.6 g/dl (32-36); Mean Corpuscular Volume 98.2 fl (80-100); Mean Platelet Volume 12.2 fl (7.4-10.4); Monocytes Absolute Auto 0.9 K/mm3 (0.1-0.6); Monocytes Percent Auto 12.9 % (2.6-8.5); Neutrophils Absolute Auto 5.2 K/mm3 (1.3-6.7); Neutrophils Percent Auto 76.8 % (45.5-73.1); Nucleated Red Blood Cells Perc 0.3 % (0.0-0.2); Platelet Count Result 163 k/mm3 (150-375); Red Blood Count 3.25 M/mm3 (4.2-5.4); White Blood Count 6.8 K/mm3 (4.5-10.0)
[2021-09-11] MEDS: LEVOTHYROXINE SODIUM 75 MCG TABLET PO (05:52)
[2021-09-11] MEDS: LEVOTHYROXINE SODIUM 100 MCG TABLET PO (05:52)
[2021-09-11 05:57] LABS: Alanine Aminotransferase 476 U/L (4-35); Albumin Level 3.2 g/dL (3.5-5.1); Alkaline Phosphatase 183 U/L (38-126); Anion Gap 10 mmol/L (8-16); Aspartate Amino Transferase 378 U/L (14-36); Blood Urea Nitrogen 34 mg/dL (7-17); Calcium 8.7 mg/dL (8.4-10.2); Carbon Dioxide 20 mmol/L (22-30); Chloride 108 mmol/L (98-107); Estimated CRCL calculation 24 ml/min; Estimated Glomerular Filt Rate 39; Glucose 122 mg/dL (65-110); Lactate Dehydrogenase 1656 U/L (313-618); Lipase 309 U/L (23-300); Magnesium 2.2 mg/dL (1.6-2.3); Potassium 4.2 mmol/L (3.4-5.0); Sodium 138 mmol/L (137-145)
[2021-09-11 06:02] LABS: Lactic Acid Reflex 1.7 mmol/L (0.7-2.1)
[2021-09-11] MEDS: LORazepam INJ (*CRX) 2 MG/ML VIAL 0.5 MG IV PUSH (06:15)
[2021-09-11] MEDS: FUROSEMIDE 20 MG TABLET PO (09:49)
[2021-09-11] MEDS: ATORVASTATIN 40 MG TABLET PO (09:49)
[2021-09-11] MEDS: CHOLECALCIFEROL 1,000 UNITS TABLET 5000 UNITS PO (09:49)
[2021-09-11] MEDS: CLOPIDOGREL BISULFATE 75 MG TABLET PO (09:49)
[2021-09-11] MEDS: FERROUS SULFATE 324 MG TABLET PO (09:49)
[2021-09-11] MEDS: PANTOPRAZOLE 40 MG TABLET PO ×2 (09:50→21:59)
[2021-09-11] MEDS: POTASSIUM CHLORIDE 10 MEQ TABLET.ER 40 MEQ PO (09:50)
[2021-09-11] MEDS: hydrALAZINE 10 MG TABLET PO (09:50)
[2021-09-11] MEDS: METOPROLOL SUCCINATE EXT REL 50 MG TABCR PO (09:50)
[2021-09-11] MEDS: prednisoLONE ACETATE 1% OPHTH 5 ML 1 DROP EACH EYE (09:50)
[2021-09-11] MEDS: valACYclovir HCL 500 MG TABLET PO ×2 (09:51→22:02)
[2021-09-11] MEDS: SACUBITRIL/VALSARTAN 24-26 MG TABLET 1 TAB PO ×2 (09:51→22:02)
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
[2021-09-11] MEDS: QUEtiapine FUMARATE 25 MG TABLET PO (22:01)
[2021-09-12] VITALS (10 sets, daily range): BP systolic 104–129; BP diastolic 67–82; PULSE 88–136; RESP 14–18; TEMP 36.1–36.8; O2SAT 92–100; BMI 15.7
[2021-09-12] MEDS: LEVOTHYROXINE SODIUM 100 MCG TABLET PO (06:11)
[2021-09-12] MEDS: LEVOTHYROXINE SODIUM 75 MCG TABLET PO (06:11)
[2021-09-12 07:09] LABS: Potassium 4.7 mmol/L (3.4-5.0)
[2021-09-12 08:09] LABS: Alanine Aminotransferase 478 U/L (4-35); Albumin Level 3.7 g/dL (3.5-5.1); Alkaline Phosphatase 218 U/L (38-126); Anion Gap 12 mmol/L (8-16); Aspartate Amino Transferase 321 U/L (14-36); Bilirubin,Total 1.4 mg/dL (0.2-1.3); Blood Urea Nitrogen 39 mg/dL (7-17); Calcium 9.1 mg/dL (8.4-10.2); Carbon Dioxide 18 mmol/L (22-30); Chloride 109 mmol/L (98-107); Estimated CRCL calculation 22 ml/min; Estimated Glomerular Filt Rate 36; Glucose 122 mg/dL (65-110); Potassium 4.8 mmol/L (3.4-5.0); Sodium 139 mmol/L (137-145)
[2021-09-12] MEDS: METOPROLOL SUCCINATE EXT REL 50 MG TABCR PO (08:21)
[2021-09-12] MEDS: SACUBITRIL/VALSARTAN 24-26 MG TABLET 1 TAB PO ×2 (08:21→20:27)
[2021-09-12] MEDS: FERROUS SULFATE 324 MG TABLET PO (08:21)
[2021-09-12] MEDS: FUROSEMIDE 20 MG TABLET PO (08:21)
[2021-09-12] MEDS: PANTOPRAZOLE 40 MG TABLET PO ×2 (08:21→20:27)
[2021-09-12] MEDS: hydrALAZINE 10 MG TABLET PO (08:21)
[2021-09-12] MEDS: CHOLECALCIFEROL 1,000 UNITS TABLET 5000 UNITS PO (08:21)
[2021-09-12] MEDS: ATORVASTATIN 40 MG TABLET PO (08:21)
[2021-09-12] MEDS: CLOPIDOGREL BISULFATE 75 MG TABLET PO (08:21)
[2021-09-12] MEDS: prednisoLONE ACETATE 1% OPHTH 5 ML 1 DROP EACH EYE (08:22)
[2021-09-12] MEDS: valACYclovir HCL 500 MG TABLET PO ×2 (08:23→20:27)
--- NOTE | 2021-09-12 14:15 | PM.IMPN ---
Progress Note: A&P Assessment and Plan (1) UTI (urinary tract infection): Code(s): N39.0 - Urinary tract infection, site not specified Status: Acute Assessment and Plan: Urine culture with growth of Klebsiella oxytoca ESBL. She was initially started on Rocephin, discontinued today after receiving cultures. Will switch to IV ertapenem, renally dosed. Penicillin allergy noted, will monitor closely with therapy. (2) Transaminitis: Code(s): R74.01 - Elevation of levels of liver transaminase levels Status: Acute Assessment and Plan: LFTs have been mildly elevated in the past with marked increase this admission. Total bilirubin elevated 1.4 today. Abdominal ultrasound showed mild dilation of the common bile duct and central intrahepatic biliary ducts. Will proceed with MRCP (3) CHF (congestive heart failure): Code(s): I50.9 - Heart failure, unspecified Status: Acute Assessment and Plan: CXR presentation showed mild pulmonary edema in the lower lungs, consistent with CHF. She appears euvolemic on my exam today. Continue PO Lasix, Entresto, metoprolol. Monitor intake and output and weight daily (4) Hypokalemia: Code(s): E87.6 - Hypokalemia Status: Acute Assessment and Plan: Potassium is 4.8 today. Continue to monitor BMP (5) Pericardial effusion: Code(s): I31.3 - Pericardial effusion (noninflammatory) Status: Acute Assessment and Plan: Chronic, longstanding and unchanged. She has been evaluated by Cardiology in the past for this. She will need to continue to follow-up with cardiology as an outpatient (6) Dementia: Code(s): F03.90 - Unspecified dementia without behavioral disturbance Status: Acute Assessment and Plan: She is A&Ox1 today. Mental status waxes and wanes. Monitor mental status closely. Continue seroquel at night (7) Hypothyroidism: Code(s): E03.9 - Hypothyroidism, unspecified Status: Acute Assessment and Plan: TSH is within normal limits this admission. Continue levothyroxine 175 mcg daily. (8) Chronic kidney disease, stage 3: Code(s): N18.3 - Chronic kidney disease, stage 3 (moderate) Status: Chronic Assessment and Plan: Renal function is stable. Continue to monitor. Renally dose medications and avoid nephrotoxic agents. Subjective Date/time seen: 09/12/21 14:15 Interval history: Date of service: 09/12/2021 Dhara Harry is an 81 year old female who is known to me from prior hospitalizations with a history of CHF, CKD, chronic anemia, paroxysmal atrial fibrillation, pericardial effusion, hypertension, hypothyroidism, T, and several other medical problems who is seen in follow-up for urinary tract infection. She is quite confused today, more confused than I have previously seen her. She is not able to reliably contribute to a history. Her daughter is present and states that she is working on getting her set up for assisted living. She notes that her confusion has been waxing and waning for some time. Review of Systems Review of Systems: ROS unobtainable: Yes unobtainable due to mental status Exam Narrative: Ms. Harry is thin, frail 81-year-old female who is lying supine in bed. She appears comfortable and is in NARD. Neuro: awake, alert and oriented to self only, not responding to questions appropriately, speech clear, no focal neuro deficits noted HEENMT: normocephalic, atraumatic, EOMI, sclerae anicteric Neck: supple, no lymphadenopathy Respiratory: clear to auscultation bilaterally, nonlabored breathing Cardio: regular rate, regular rhythm with S1-S2 Abdomen: nondistended, normoactive bowel sounds, soft, nontender to palpation Extremities: no edema, erythema, or tenderness to palpation, DP pulses 2+ bilaterally Skin: no rashes or lesions, warm and dry Psych: appropriate mood and affect, judgment and insight p
--- NOTE | 2021-09-12 19:25 | PC.NURSE ---
Patient lost IV access prior to IV administration of IV antibiotics. Called hospitalist to inform Kalyn MIRAMONTES that the patient lost IV access, okay for patient to not have an IV at this time, will administer IM antibiotics for tonight until vascular access can evaluate in the AM.
[2021-09-12] MEDS: ERTAPENEM SODIUM 1 GM VIAL 0.5 GM IM (19:48)
[2021-09-12] MEDS: QUEtiapine FUMARATE 25 MG TABLET PO (20:27)
[2021-09-13] MEDS: LORazepam INJ (*CRX) 2 MG/ML VIAL 0.5 MG IV PUSH (00:05)
[2021-09-13 06:00] VITALS: BP 134/77; PULSE 110; RESP 20; TEMP 36.3; O2SAT 92
[2021-09-13] MEDS: LEVOTHYROXINE SODIUM 100 MCG TABLET PO (06:30)
[2021-09-13] MEDS: LEVOTHYROXINE SODIUM 75 MCG TABLET PO (06:30)
[2021-09-13 06:49] LABS: Hematocrit 37.5 % (37.0-47.0); Hemoglobin 11.5 g/dL (12.0-15.0); Mean Corpuscular HGB Conc 30.7 g/dl (32-36); Mean Corpuscular Hemoglobin 31.6 pg (26-34); Mean Platelet Volume 11.9 fl (7.4-10.4); Platelet Count Result 132 k/mm3 (150-375); Red Blood Count 3.64 M/mm3 (4.2-5.4); Red Cell Distribution Width 17.6 % (11.5-14.5); White Blood Count 7.8 K/mm3 (4.5-10.0)
[2021-09-13 06:59] LABS: Anion Gap 13 mmol/L (8-16); Blood Urea Nitrogen 44 mg/dL (7-17); Carbon Dioxide 19 mmol/L (22-30); Chloride 109 mmol/L (98-107); Estimated CRCL calculation 22 ml/min; Estimated Glomerular Filt Rate 36; Glucose 120 mg/dL (65-110); Potassium 4.3 mmol/L (3.4-5.0); Sodium 141 mmol/L (137-145)
[2021-09-13] MEDS: PANTOPRAZOLE 40 MG TABLET PO ×2 (08:11→21:23)
[2021-09-13] MEDS: valACYclovir HCL 500 MG TABLET PO ×2 (08:11→21:23)
[2021-09-13] MEDS: CHOLECALCIFEROL 1,000 UNITS TABLET 5000 UNITS PO (08:11)
[2021-09-13] MEDS: SACUBITRIL/VALSARTAN 24-26 MG TABLET 1 TAB PO ×2 (08:11→21:23)
[2021-09-13] MEDS: hydrALAZINE 10 MG TABLET PO (08:11)
[2021-09-13] MEDS: METOPROLOL SUCCINATE EXT REL 50 MG TABCR PO (08:11)
[2021-09-13] MEDS: ATORVASTATIN 40 MG TABLET PO (08:12)
[2021-09-13] MEDS: prednisoLONE ACETATE 1% OPHTH 5 ML 1 DROP EACH EYE (08:12)
[2021-09-13] MEDS: FUROSEMIDE 20 MG TABLET PO (08:12)
[2021-09-13] MEDS: FERROUS SULFATE 324 MG TABLET PO (08:12)
[2021-09-13] MEDS: CLOPIDOGREL BISULFATE 75 MG TABLET PO (08:12)
[2021-09-13 08:20] LABS: Alanine Aminotransferase 361 U/L (4-35); Albumin Level 3.6 g/dL (3.5-5.1); Alkaline Phosphatase 220 U/L (38-126); Anion Gap 16 mmol/L (8-16); Aspartate Amino Transferase 138 U/L (14-36); Blood Urea Nitrogen 45 mg/dL (7-17); Calcium 9.1 mg/dL (8.4-10.2); Carbon Dioxide 18 mmol/L (22-30); Chloride 108 mmol/L (98-107); Estimated CRCL calculation 22 ml/min; Estimated Glomerular Filt Rate 36; Glucose 121 mg/dL (65-110); Lipase 445 U/L (23-300); Potassium 4.3 mmol/L (3.4-5.0); Sodium 142 mmol/L (137-145)
--- NOTE | 2021-09-13 08:40 | ECG_ITS ---
Measurements Intervals [place] Rate: 87 P: SD: 0 QRS: -89 QRSD: 102 T: 89 QT: 388 QTc: 469 Interpretive Statements WANDERING PACEMAKER ATRIAL AND VENTRICULAR PREMATURE COMPLEXES ANTEROSEPTAL INFARCT, AGE INDETERMINATE BORDERLINE T WAVE ABNORMALITY- HIGH LATERAL LEADS BASELINE ARTIFACT- I, AVL, V1, V4 ABNORMAL ECG Electronically Signed On 09-13-2021 9:34:42 [employer]UCTURAL RIGGER by Marlon Joe D.O.
--- NOTE | 2021-09-13 11:24 | P.CDI_ITS ---
CDI Query Clarification Request -CHF Continue with IV Lasix and metoprolol documented in H&P - Echocardiogram on 07/28/2021 showed normal left ventricular size with mild concentric left ventricular hypertrophy and severe global hypokinesis with no segmental wall abnormalities and a calculated ejection fraction of 38% however visual estimate was in the 25 to 30% range as well as diastolic dysfunction grade 2 with severely enlarged left atrial chamber and a large pericardial effusion, mostly posterior, with right atrial and ventricular collapse consistent with cardiac tamponade physiology. documented in H&P -Pt's home dose of Lasix 20mg daily ordered Please further clarify type and acuity of CHF: * Systolic *Acute * Diastolic *Chronic * Both systolic and diastolic *Acute on chronic * Unable to determine *Unable to determine
--- NOTE | 2021-09-13 14:41 | PM.IMPN ---
Progress Note: A&P Assessment and Plan (1) UTI (urinary tract infection): Code(s): N39.0 - Urinary tract infection, site not specified Status: Acute Assessment and Plan: Urine culture with growth of Klebsiella oxytoca ESBL. She was initially started on Rocephin, discontinued 09/12/2021 after receiving cultures. Started on IV ertapenem on 09/12, renally dosed. IV access was lost yesterday afternoon, therefore she had received IM ertapenem. She now has IV access and will continue with IV ertapenem. Blood cultures pending, negative to date. (2) Transaminitis: Code(s): R74.01 - Elevation of levels of liver transaminase levels Status: Acute Assessment and Plan: LFTs have been mildly elevated in the past with marked increase this admission. Total bilirubin was elevated at 1.4, now is back to 1.0. AST and ALT mildly improved today. Abdominal ultrasound showed mild dilation of the common bile duct and central intrahepatic biliary ducts. MRCP is pending (3) CHF (congestive heart failure): Code(s): I50.9 - Heart failure, unspecified Status: Acute Assessment and Plan: CXR on presentation showed mild pulmonary edema in the lower lungs, consistent with CHF. She appears euvolemic on exam. Continue PO Lasix, Entresto, metoprolol. Monitor intake and output and weight daily (4) Hypokalemia: Code(s): E87.6 - Hypokalemia Status: Acute Assessment and Plan: Potassium is 4.3 today. Continue to monitor BMP (5) Pericardial effusion: Code(s): I31.3 - Pericardial effusion (noninflammatory) Status: Acute Assessment and Plan: Chronic, longstanding and unchanged. She has been evaluated by Cardiology in the past for this. She will need to continue to follow-up with cardiology as an outpatient (6) Dementia: Code(s): F03.90 - Unspecified dementia without behavioral disturbance Status: Acute Assessment and Plan: She is A&Ox1 today. Mental status waxes and wanes. Monitor mental status closely. Noted to be somewhat restless last night, likely related to her dementia. Continue seroquel at night. Limit sedating agents (7) Hypothyroidism: Code(s): E03.9 - Hypothyroidism, unspecified Status: Acute Assessment and Plan: TSH is within normal limits this admission. Continue levothyroxine 175 mcg daily. (8) Chronic kidney disease, stage 3: Code(s): N18.3 - Chronic kidney disease, stage 3 (moderate) Status: Chronic Assessment and Plan: Renal function is stable. Continue to monitor. Renally dose medications and avoid nephrotoxic agents. Subjective Date/time seen: 09/13/21 14:41 Interval history: Date of service: 09/13/2021 Dhara Harry is an 81 year old female who is known to me from prior hospitalizations with a history of CHF, CKD, chronic anemia, paroxysmal atrial fibrillation, pericardial effusion, hypertension, hypothyroidism, and several other medical problems who is seen in follow-up for urinary tract infection. She remains confused today and is more fatigued, she is not really able to participate in answering questions. Spoke with her RN who notes that last night she was quite restless and did not sleep throughout the night. This explains her increased fatigue today. Her is present at the bedside. Tells me he is worried about his because she has been increasingly more confused for the past several weeks and does not get around well at all at home. 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 Review of Systems Review of Systems: ROS unobtainable: Yes unobtainable due to mental status Exam Narrative: Ms. Harry is thin, frail 81-year-old female who is lying supine in bed. She appears comfortable and is in NARD. Neuro: awake, alert and oriented to self only, not responding to questions freda
[2021-09-13 15:00] VITALS: BP 123/82; PULSE 67; RESP 22; TEMP 36; O2SAT 96
[2021-09-13] MEDS: ERTAPENEM SODIUM 0.5 GM in SODIUM CHLORIDE 0.9% IV 50 ML IVPB (19:00)
[2021-09-13] MEDS: QUEtiapine FUMARATE 25 MG TABLET PO (21:23)
[2021-09-13 21:32] VITALS: BP 120/77; PULSE 100; RESP 20; TEMP 36; O2SAT 92
[2021-09-14] MEDS: LEVOTHYROXINE SODIUM 75 MCG TABLET PO (05:35)
[2021-09-14] MEDS: LEVOTHYROXINE SODIUM 100 MCG TABLET PO (05:35)
[2021-09-14 05:39] VITALS: BP 129/74; PULSE 110; RESP 20; TEMP 36.1; O2SAT 98
[2021-09-14 06:15] LABS: Anion Gap 12 mmol/L (8-16); Blood Urea Nitrogen 48 mg/dL (7-17); Calcium 8.5 mg/dL (8.4-10.2); Carbon Dioxide 19 mmol/L (22-30); Chloride 111 mmol/L (98-107); Estimated CRCL calculation 108 ml/min; Estimated Glomerular Filt Rate 33; Glucose 116 mg/dL (65-110); Potassium 4.2 mmol/L (3.4-5.0); Sodium 142 mmol/L (137-145)
[2021-09-14 06:16] LABS: Hematocrit 33.8 % (37.0-47.0); Hemoglobin 10.4 g/dL (12.0-15.0); Mean Corpuscular HGB Conc 30.8 g/dl (32-36); Mean Corpuscular Hemoglobin 31.2 pg (26-34); Mean Corpuscular Volume 101.5 fl (80-100); Mean Platelet Volume 12.4 fl (7.4-10.4); Platelet Count Result 128 k/mm3 (150-375); Red Blood Count 3.33 M/mm3 (4.2-5.4); Red Cell Distribution Width 17.6 % (11.5-14.5); White Blood Count 6.3 K/mm3 (4.5-10.0)
[2021-09-14 08:27] VITALS: BP 136/77; PULSE 93; RESP 14; TEMP 36.5; O2SAT 99
[2021-09-14] MEDS: FUROSEMIDE 20 MG TABLET PO (09:19)
[2021-09-14] MEDS: METOPROLOL SUCCINATE EXT REL 50 MG TABCR PO (09:19)
[2021-09-14] MEDS: ATORVASTATIN 40 MG TABLET PO (09:19)
[2021-09-14] MEDS: CHOLECALCIFEROL 1,000 UNITS TABLET 5000 UNITS PO (09:19)
[2021-09-14] MEDS: valACYclovir HCL 500 MG TABLET PO ×2 (09:19→22:47)
[2021-09-14] MEDS: PANTOPRAZOLE 40 MG TABLET PO ×2 (09:19→22:37)
[2021-09-14] MEDS: hydrALAZINE 10 MG TABLET PO (09:19)
[2021-09-14] MEDS: FERROUS SULFATE 324 MG TABLET PO (09:19)
[2021-09-14] MEDS: CLOPIDOGREL BISULFATE 75 MG TABLET PO (09:20)
[2021-09-14] MEDS: SACUBITRIL/VALSARTAN 24-26 MG TABLET 1 TAB PO ×2 (09:20→22:41)
[2021-09-14] MEDS: prednisoLONE ACETATE 1% OPHTH 5 ML 1 DROP EACH EYE (09:21)
[2021-09-14 12:38] LABS: Alanine Aminotransferase 255 U/L (4-35); Albumin Level 3.1 g/dL (3.5-5.1); Alkaline Phosphatase 197 U/L (38-126); Anion Gap 13 mmol/L (8-16); Aspartate Amino Transferase 76 U/L (14-36); Bilirubin,Total 1.1 mg/dL (0.2-1.3); Blood Urea Nitrogen 47 mg/dL (7-17); Calcium 8.8 mg/dL (8.4-10.2); Carbon Dioxide 19 mmol/L (22-30); Chloride 113 mmol/L (98-107); Estimated CRCL calculation 108 ml/min; Estimated Glomerular Filt Rate 33; Glucose 120 mg/dL (65-110); Potassium 4.4 mmol/L (3.4-5.0); Sodium 145 mmol/L (137-145)
--- NOTE | 2021-09-14 13:26 | PCOTNOTE ---
Attempted 2 times this date. This A.M. patient had just been laid down after having PT services. Per RN, try back this afternoon. Attempted again this P.M. Patient having a lot of coughing and stated feeling very weak. Patient refused to participate at this time.
[2021-09-14 14:20] VITALS: BP 130/87; PULSE 88; RESP 18; TEMP 36.4; O2SAT 93
--- NOTE | 2021-09-14 16:06 | PM.IMPN ---
Progress Note: A&P Assessment and Plan (1) UTI (urinary tract infection): Code(s): N39.0 - Urinary tract infection, site not specified Status: Acute Assessment and Plan: Urine culture with growth of Klebsiella oxytoca ESBL. She was initially started on Rocephin, discontinued 09/12/2021 after receiving cultures. Started on IV ertapenem on 09/12, renally dosed. Continue IV ertapenenm. Blood cultures pending, negative to date. (2) Transaminitis: Code(s): R74.01 - Elevation of levels of liver transaminase levels Status: Acute Assessment and Plan: LFTs have been mildly elevated in the past with marked increase this admission. Total bilirubin was elevated at 1.4, now is back to 1.0. Some improvement today. Abdominal ultrasound showed mild dilation of the common bile duct and central intrahepatic biliary ducts. MRCP with mild dilation of CBD related to prior cholecystectomy, no evidence of obstructing stone or mass. (3) CHF (congestive heart failure): Code(s): I50.9 - Heart failure, unspecified Status: Acute Assessment and Plan: CXR on presentation showed mild pulmonary edema in the lower lungs, consistent with CHF. Echo reviewed from July 2021 with EF 25-30%. She appears euvolemic on exam. Continue PO Lasix, Entresto, metoprolol. Monitor intake and output and weigh daily (4) Hypokalemia: Code(s): E87.6 - Hypokalemia Status: Acute Assessment and Plan: Potassium is 4.2 today. Continue to monitor BMP (5) Pericardial effusion: Code(s): I31.3 - Pericardial effusion (noninflammatory) Status: Acute Assessment and Plan: Chronic, longstanding and unchanged. She has been evaluated by Cardiology in the past for this. She will need to continue to follow-up with cardiology as an outpatient (6) Dementia: Code(s): F03.90 - Unspecified dementia without behavioral disturbance Status: Acute Assessment and Plan: She is A&Ox1 today. Mental status waxes and wanes. Monitor mental status closely. She is more alert today but still exhibiting confusion. Continue seroquel at night. Limit sedating agents (7) Hypothyroidism: Code(s): E03.9 - Hypothyroidism, unspecified Status: Acute Assessment and Plan: TSH is within normal limits this admission. Continue levothyroxine 175 mcg daily. (8) Chronic kidney disease, stage 3: Code(s): N18.3 - Chronic kidney disease, stage 3 (moderate) Status: Chronic Assessment and Plan: Renal function is stable. Continue to monitor. Renally dose medications and avoid nephrotoxic agents. Subjective Date/time seen: 09/14/21 16:06 Interval history: Date of service: 09/14/2021 Dhara Harry is an 81 year old female who is known to me from prior hospitalizations with a history of CHF, CKD, chronic anemia, paroxysmal atrial fibrillation, pericardial effusion, hypertension, hypothyroidism, and several other medical problems who is seen in follow-up for urinary tract infection. She remains confused today but is more awake than yesterday. She is calling out for her Iam. She complains of chills and pain in her back. She has not eaten much at all today. Review of Systems Review of Systems: ROS unobtainable: Yes unobtainable due to mental status Exam Narrative: Ms. Harry is thin, frail 81-year-old female who is lying supine in bed. She appears comfortable and is in NARD. Neuro: awake, alert and oriented to self only, exhibits confusion in conversation, speech clear, no focal neuro deficits noted HEENMT: normocephalic, atraumatic, EOMI, sclerae anicteric Neck: supple, no lymphadenopathy Respiratory: clear to auscultation bilaterally, nonlabored breathing Cardio: regular rate, regular rhythm with S1-S2 Abdomen: nondistended, normoactive bowel sounds, soft, nontender to palpation Extremities: no edema, erythema, or
[2021-09-14] MEDS: ERTAPENEM SODIUM 0.5 GM in SODIUM CHLORIDE 0.9% IV 50 ML IVPB (16:40)
[2021-09-14 22:00] VITALS: BP 128/90; PULSE 114; RESP 22; TEMP 36.1; O2SAT 100
[2021-09-14] MEDS: QUEtiapine FUMARATE 25 MG TABLET PO (22:40)
[2021-09-15 05:56] LABS: Basophils Percent Auto 0.5 % (0.2-1.2); Eosinophils Percent Auto 0.5 % (0-4.4); Hematocrit 37.3 % (37.0-47.0); Hemoglobin 11.1 g/dL (12.0-15.0); Immature Granulocyte Absolute 0.02 K/mm3 (0.00-0.031); Immature Granulocyte Percent A 0.3 % (0-0.5); Lymphocytes Absolute Auto 0.76 K/mm3 (0.9-3.2); Lymphocytes Percent Auto 11.5 % (18.3-44.2); Mean Corpuscular HGB Conc 29.8 g/dl (32-36); Mean Corpuscular Hemoglobin 31.5 pg (26-34); Mean Platelet Volume 12.2 fl (7.4-10.4); Monocytes Absolute Auto 0.8 K/mm3 (0.1-0.6); Monocytes Percent Auto 11.5 % (2.6-8.5); Neutrophils Percent Auto 75.7 % (45.5-73.1); Nucleated Red Blood Cells Perc 0.3 % (0.0-0.2); Platelet Count Result 141 k/mm3 (150-375); Red Blood Count 3.52 M/mm3 (4.2-5.4); Red Cell Distribution Width 17.4 % (11.5-14.5); White Blood Count 6.6 K/mm3 (4.5-10.0)
[2021-09-15 06:00] VITALS: BP 125/85; PULSE 74; RESP 20; TEMP 36.2; O2SAT 99
[2021-09-15 06:37] LABS: Alanine Aminotransferase 221 U/L (4-35); Albumin Level 3.4 g/dL (3.5-5.1); Alkaline Phosphatase 207 U/L (38-126); Anion Gap 16 mmol/L (8-16); Aspartate Amino Transferase 78 U/L (14-36); Bilirubin,Total 1.4 mg/dL (0.2-1.3); Blood Urea Nitrogen 53 mg/dL (7-17); Calcium 8.6 mg/dL (8.4-10.2); Carbon Dioxide 16 mmol/L (22-30); Chloride 113 mmol/L (98-107); Estimated CRCL calculation 90 ml/min; Estimated Glomerular Filt Rate 27; Glucose 113 mg/dL (65-110); Potassium 4.6 mmol/L (3.4-5.0); Sodium 145 mmol/L (137-145)
[2021-09-15] MEDS: LEVOTHYROXINE SODIUM 100 MCG TABLET PO (06:37)
[2021-09-15] MEDS: LEVOTHYROXINE SODIUM 75 MCG TABLET PO (06:37)
[2021-09-15 06:46] LABS: Lactate Dehydrogenase 1177 U/L (313-618)
[2021-09-15] MEDS: CHOLECALCIFEROL 1,000 UNITS TABLET 5000 UNITS PO (09:44)
[2021-09-15] MEDS: ATORVASTATIN 40 MG TABLET PO (09:44)
[2021-09-15 09:45] VITALS: PULSE 84
[2021-09-15] MEDS: PANTOPRAZOLE 40 MG TABLET PO ×2 (09:45→23:23)
[2021-09-15] MEDS: CLOPIDOGREL BISULFATE 75 MG TABLET PO (09:45)
[2021-09-15] MEDS: prednisoLONE ACETATE 1% OPHTH 5 ML 1 DROP EACH EYE (09:45)
[2021-09-15] MEDS: hydrALAZINE 10 MG TABLET PO (09:45)
[2021-09-15] MEDS: METOPROLOL SUCCINATE EXT REL 50 MG TABCR PO (09:45)
[2021-09-15] MEDS: FERROUS SULFATE 324 MG TABLET PO (09:45)
[2021-09-15] MEDS: valACYclovir HCL 500 MG TABLET PO ×2 (09:46→23:23)
--- NOTE | 2021-09-15 11:21 | PCNFU ---
Nutrition Follow-Up Complete: Underweight as related to dementia as evidenced by BMI 15.8 Goal: Adequate Intake of at least 75% of meals/supplements Patient is progressing towards goal. We will continue current goal. Pt current nutrition is Regular with Ensure Enlive BID. Last recorded weight is 51.8 kg, up from 50 kg on admit. Bowel Motility:+BM reported 09/12 Labs Reviewed:Glu 113, Cr 1.8,GFR 27, BUN 53, Alb 3.4 Meds Noted:Valtrex, Toprol, Protonix, Lipitor, Ferrous Sulfate, Plavix, Vit D, Pred Forte. Skin: WNL Additional Notes: Nutrition follow up. Patient oral intake improving to about 50% of meals per nursing. Diet supplements of Ensure Enlive providing an additional 350 kcals and 20 gms protein. Agree with diet orders. Monitoring: Will monitor every 5 days.
[2021-09-15 14:15] VITALS: BP 124/93; PULSE 110; RESP 20; TEMP 36.3; O2SAT 100
[2021-09-15] MEDS: ERTAPENEM SODIUM 0.5 GM in SODIUM CHLORIDE 0.9% IV 50 ML IVPB (15:05)
--- NOTE | 2021-09-15 15:50 | PM.IMPN ---
Progress Note: A&P Assessment and Plan (1) UTI (urinary tract infection): Code(s): N39.0 - Urinary tract infection, site not specified Status: Acute Assessment and Plan: Urine culture with growth of Klebsiella oxytoca ESBL. She was initially started on Rocephin, discontinued 09/12/2021 after receiving cultures. Started on IV ertapenem on 09/12, renally dosed. Continue IV ertapenenem. Blood cultures pending, negative to date. Difficulty with IV access due to patient removing lines. Do not believe she would keep a midline in as an outpatient to receive antibiotics, therefore we will plan to keep her until she has completed 7 days of IV ertapenem. Dose #4 today. (2) Transaminitis: Code(s): R74.01 - Elevation of levels of liver transaminase levels Status: Acute Assessment and Plan: Etiology for this is unclear. LFTs have been mildly elevated in the past with marked increase this admission. Total bilirubin was elevated at 1.4, now is back to 1.0. Some improvement in LFTs today. Abdominal ultrasound showed mild dilation of the common bile duct and central intrahepatic biliary ducts. MRCP with mild dilation of CBD related to prior cholecystectomy, no evidence of obstructing stone or mass. Continue to monitor CMP (3) CHF (congestive heart failure): Code(s): I50.9 - Heart failure, unspecified Status: Acute Assessment and Plan: CXR on presentation showed mild pulmonary edema in the lower lungs, consistent with CHF. Echo reviewed from July 2021 with EF 25-30%. She appears euvolemic on exam. Continue PO metoprolol. Hold Lasix and Entresto due to rising creatinikne. Monitor intake and output and weigh daily (4) Hypokalemia: Code(s): E87.6 - Hypokalemia Status: Acute Assessment and Plan: Potassium is 4.2 today. Continue to monitor BMP (5) Pericardial effusion: Code(s): I31.3 - Pericardial effusion (noninflammatory) Status: Acute Assessment and Plan: Chronic, longstanding and unchanged. She has been evaluated by Cardiology in the past for this. She will need to continue to follow-up with cardiology as an outpatient (6) Dementia: Code(s): F03.90 - Unspecified dementia without behavioral disturbance Status: Acute Assessment and Plan: She is A&Ox2 today. Mental status waxes and wanes. Monitor mental status closely. She is more alert today but still exhibiting confusion. Continue seroquel at night. Limit sedating agents (7) Hypothyroidism: Code(s): E03.9 - Hypothyroidism, unspecified Status: Acute Assessment and Plan: TSH is within normal limits this admission. Continue levothyroxine 175 mcg daily. (8) Chronic kidney disease, stage 3: Code(s): N18.3 - Chronic kidney disease, stage 3 (moderate) Status: Chronic Assessment and Plan: Baseline appears to be 1.4-1.6. Slight increase in creatinine today up to 1.8. Hold Lasix and Entresto. Continue to monitor. Renally dose medications and avoid nephrotoxic agents. Subjective Date/time seen: 09/15/21 15:50 Interval history: Date of service: 09/15/2021 Dhara Harry is an 81 year old female who is known to me from prior hospitalizations with a history of CHF, CKD, chronic anemia, paroxysmal atrial fibrillation, pericardial effusion, hypertension, hypothyroidism, and several other medical problems who is seen in follow-up for urinary tract infection. She is still confused, though seems improved from prior exams. She is answering questions appropriately but still not really able to contribute a reliable history. Spoke with her nurse who reports that she is eating a little bit better today. There has been issues with her pulling out her IV and difficulty with administering her medications. Review of Systems Review of Systems: ROS unobtainable: Yes unobtainable due to mental status Exam Narrative:
[2021-09-15 19:49] VITALS: BP 122/82; PULSE 54; RESP 16; TEMP 36.6; O2SAT 93
[2021-09-15] MEDS: QUEtiapine FUMARATE 25 MG TABLET PO (23:23)
[2021-09-16 03:22] VITALS: BP 131/91; PULSE 93; RESP 18; TEMP 36.8; O2SAT 99
[2021-09-16] MEDS: LEVOTHYROXINE SODIUM 100 MCG TABLET PO (07:01)
[2021-09-16] MEDS: LEVOTHYROXINE SODIUM 75 MCG TABLET PO (07:01)
[2021-09-16 09:24] VITALS: PULSE 84
[2021-09-16] MEDS: ATORVASTATIN 40 MG TABLET PO (09:24)
[2021-09-16] MEDS: FERROUS SULFATE 324 MG TABLET PO (09:24)
[2021-09-16] MEDS: valACYclovir HCL 500 MG TABLET PO ×2 (09:24→21:19)
[2021-09-16] MEDS: prednisoLONE ACETATE 1% OPHTH 5 ML 1 DROP EACH EYE (09:24)
[2021-09-16] MEDS: CLOPIDOGREL BISULFATE 75 MG TABLET PO (09:24)
[2021-09-16] MEDS: METOPROLOL SUCCINATE EXT REL 50 MG TABCR PO (09:24)
[2021-09-16] MEDS: PANTOPRAZOLE 40 MG TABLET PO ×2 (09:24→21:18)
[2021-09-16] MEDS: hydrALAZINE 10 MG TABLET PO (09:24)
[2021-09-16] MEDS: CHOLECALCIFEROL 1,000 UNITS TABLET 5000 UNITS PO (09:24)
[2021-09-16 09:30] LABS: Alanine Aminotransferase 175 U/L (4-35); Albumin Level 3.4 g/dL (3.5-5.1); Alkaline Phosphatase 188 U/L (38-126); Anion Gap 13 mmol/L (8-16); Aspartate Amino Transferase 56 U/L (14-36); Bilirubin,Total 1.1 mg/dL (0.2-1.3); Blood Urea Nitrogen 57 mg/dL (7-17); Calcium 8.6 mg/dL (8.4-10.2); Carbon Dioxide 18 mmol/L (22-30); Chloride 113 mmol/L (98-107); Estimated CRCL calculation 22 ml/min; Estimated Glomerular Filt Rate 33; Glucose 113 mg/dL (65-110); Potassium 3.9 mmol/L (3.4-5.0); Sodium 144 mmol/L (137-145)
[2021-09-16 09:49] LABS: Hematocrit 37.7 % (37.0-47.0); Hemoglobin 11.5 g/dL (12.0-15.0); Mean Corpuscular HGB Conc 30.5 g/dl (32-36); Mean Corpuscular Hemoglobin 31.1 pg (26-34); Mean Corpuscular Volume 101.9 fl (80-100); Mean Platelet Volume 12.6 fl (7.4-10.4); Platelet Count Result 133 k/mm3 (150-375); Red Cell Distribution Width 17.2 % (11.5-14.5); White Blood Count 7.6 K/mm3 (4.5-10.0)
--- NOTE | 2021-09-16 10:36 | PM.IMPN ---
Progress Note: A&P Assessment and Plan (1) UTI (urinary tract infection): Code(s): N39.0 - Urinary tract infection, site not specified Status: Acute Assessment and Plan: Urine culture with growth of Klebsiella oxytoca ESBL. She was initially started on Rocephin, discontinued 09/12/2021 after receiving cultures. Continue IV ertapenem, started on 09/12, renally dosed. Blood cultures negative. Difficulty with IV access due to patient removing lines. Do not believe she would keep a midline in as an outpatient to receive antibiotics, therefore we will plan to keep her until she has completed 7 days of IV ertapenem. Dose #5 today. (2) Transaminitis: Code(s): R74.01 - Elevation of levels of liver transaminase levels Status: Acute Assessment and Plan: Etiology for this is unclear. LFTs have been mildly elevated in the past with marked increase this admission. slight improvement in LFTs today. Abdominal ultrasound showed mild dilation of the common bile duct and central intrahepatic biliary ducts. MRCP with mild dilation of CBD related to prior cholecystectomy, no evidence of obstructing stone or mass. Continue to monitor CMP (3) CHF (congestive heart failure): Code(s): I50.9 - Heart failure, unspecified Status: Acute Assessment and Plan: CXR on presentation showed mild pulmonary edema in the lower lungs, consistent with CHF. Echo reviewed from July 2021 with EF 25-30%. She appears euvolemic on exam. Continue PO metoprolol. Resume Lasix and Entresto, had been held due to rising creatinine. Monitor intake and output and weigh daily. (4) Hypokalemia: Code(s): E87.6 - Hypokalemia Status: Acute Assessment and Plan: Potassium is 4.2 today. Continue to monitor BMP (5) Pericardial effusion: Code(s): I31.3 - Pericardial effusion (noninflammatory) Status: Acute Assessment and Plan: Chronic, longstanding and unchanged. She has been evaluated by Cardiology in the past for this. She will need to continue to follow-up with cardiology as an outpatient (6) Dementia: Code(s): F03.90 - Unspecified dementia without behavioral disturbance Status: Acute Assessment and Plan: Progressive. She is A&Ox1 today. Mental status waxes and wanes. Monitor mental status closely. She is more alert today but still exhibiting confusion. Continue seroquel at night. Limit sedating agents (7) Hypothyroidism: Code(s): E03.9 - Hypothyroidism, unspecified Status: Acute Assessment and Plan: TSH is within normal limits this admission. Continue levothyroxine 175 mcg daily. (8) Chronic kidney disease, stage 3: Code(s): N18.3 - Chronic kidney disease, stage 3 (moderate) Status: Chronic Assessment and Plan: Baseline appears to be 1.4-1.6. Slight increase in creatinine up to 1.8 yesterday, back down to baseline 1.5 today. Continue to monitor. Renally dose medications and avoid nephrotoxic agents. Additional Plan Wet cough noted on exam today. Will proceed with CXR Subjective Date/time seen: 09/16/21 10:36 Interval history: Date of service: 09/16/2021 Dhara Harry is an 81 year old female who is known to me from prior hospitalizations with a history of CHF, CKD, chronic anemia, paroxysmal atrial fibrillation, pericardial effusion, hypertension, hypothyroidism, and several other medical problems who is seen in follow-up for urinary tract infection. she is quite talkative today, telling me [place] she is still confused has difficulty answering questions. she gets off track and goes back to telling stories. I was not able to obtain any meaningful history, other than the fact that she denies abdominal pain. Spoke with her MORTGAGE LOAN ASSISTANT who reports she ate very little breakfast this morning. Her Iam is at the bedside. He feels that she is somewhat impro
[2021-09-16 14:24] VITALS: BP 123/69; PULSE 87; RESP 18; TEMP 36.4; O2SAT 97
[2021-09-16] MEDS: ERTAPENEM SODIUM 0.5 GM in SODIUM CHLORIDE 0.9% IV 50 ML IVPB (15:20)
--- NOTE | 2021-09-16 16:25 | PCOTNOTE ---
On 09/16/21, Enriqueta ZEPEDA provided care and completed Jaeger documentation on this patient. I have reviewed the student's documentation and agree with the findings.
[2021-09-16] MEDS: LORazepam INJ (*CRX) 2 MG/ML VIAL 0.5 MG IV PUSH (17:34)
[2021-09-16 19:29] VITALS: BP 129/81; PULSE 114; RESP 20; TEMP 37.1; O2SAT 92
[2021-09-16] MEDS: guaiFENesin 12 HR 600 MG TABCR PO (21:17)
[2021-09-16] MEDS: QUEtiapine FUMARATE 25 MG TABLET PO (21:18)
[2021-09-16] MEDS: SACUBITRIL/VALSARTAN 24-26 MG TABLET 1 TAB PO (21:44)
[2021-09-17 03:36] VITALS: BP 128/91; PULSE 98; RESP 16; TEMP 36.1; O2SAT 92
[2021-09-17] MEDS: LEVOTHYROXINE SODIUM 100 MCG TABLET PO (05:22)
[2021-09-17] MEDS: LEVOTHYROXINE SODIUM 75 MCG TABLET PO (05:23)
[2021-09-17 05:51] LABS: Hematocrit 35.4 % (37.0-47.0); Hemoglobin 10.8 g/dL (12.0-15.0); Mean Corpuscular HGB Conc 30.5 g/dl (32-36); Mean Corpuscular Hemoglobin 30.9 pg (26-34); Mean Corpuscular Volume 101.4 fl (80-100); Mean Platelet Volume 12.4 fl (7.4-10.4); Platelet Count Result 149 k/mm3 (150-375); Red Blood Count 3.49 M/mm3 (4.2-5.4); Red Cell Distribution Width 17.3 % (11.5-14.5)
[2021-09-17 05:59] LABS: Alanine Aminotransferase 139 U/L (4-35); Albumin Level 3.1 g/dL (3.5-5.1); Alkaline Phosphatase 180 U/L (38-126); Anion Gap 12 mmol/L (8-16); Aspartate Amino Transferase 43 U/L (14-36); Bilirubin,Total 1.1 mg/dL (0.2-1.3); Blood Urea Nitrogen 57 mg/dL (7-17); Calcium 8.6 mg/dL (8.4-10.2); Carbon Dioxide 22 mmol/L (22-30); Chloride 115 mmol/L (98-107); Estimated CRCL calculation 23 ml/min; Estimated Glomerular Filt Rate 33; Glucose 115 mg/dL (65-110); Sodium 149 mmol/L (137-145)
[2021-09-17 08:50] VITALS: PULSE 98
[2021-09-17] MEDS: FERROUS SULFATE 324 MG TABLET PO (08:50)
[2021-09-17] MEDS: PANTOPRAZOLE 40 MG TABLET PO ×2 (08:50→20:44)
[2021-09-17] MEDS: METOPROLOL SUCCINATE EXT REL 50 MG TABCR PO (08:50)
[2021-09-17] MEDS: SACUBITRIL/VALSARTAN 24-26 MG TABLET 1 TAB PO ×2 (08:50→20:45)
[2021-09-17] MEDS: guaiFENesin 12 HR 600 MG TABCR PO ×2 (08:50→20:44)
[2021-09-17] MEDS: hydrALAZINE 10 MG TABLET PO (08:51)
[2021-09-17] MEDS: prednisoLONE ACETATE 1% OPHTH 5 ML 1 DROP EACH EYE (08:51)
[2021-09-17] MEDS: CHOLECALCIFEROL 1,000 UNITS TABLET 5000 UNITS PO (08:51)
[2021-09-17] MEDS: ATORVASTATIN 40 MG TABLET PO (08:51)
[2021-09-17] MEDS: CLOPIDOGREL BISULFATE 75 MG TABLET PO (08:51)
[2021-09-17] MEDS: valACYclovir HCL 500 MG TABLET PO ×2 (08:51→20:45)
[2021-09-17] MEDS: FUROSEMIDE 20 MG TABLET PO (12:43)
[2021-09-17 14:00] VITALS: BP 114/75; PULSE 100; RESP 20; TEMP 36.2; O2SAT 58
--- NOTE | 2021-09-17 14:14 | PM.IMPN ---
Progress Note: A&P Assessment and Plan (1) UTI (urinary tract infection): Code(s): N39.0 - Urinary tract infection, site not specified Status: Acute Assessment and Plan: Urine culture with growth of Klebsiella oxytoca ESBL. She was initially started on Rocephin, discontinued 09/12/2021 after receiving cultures. Continue IV ertapenem, started on 09/12, renally dosed. Blood cultures negative. Difficulty with IV access due to patient removing lines. Do not believe she would keep a midline in as an outpatient to receive antibiotics, therefore we will plan to keep her until she has completed 7 days of IV ertapenem. Dose #6 today. (2) Transaminitis: Code(s): R74.01 - Elevation of levels of liver transaminase levels Status: Acute Assessment and Plan: Etiology for this is unclear. LFTs have been mildly elevated in the past with marked increase this admission with slow but steady improvement. Abdominal ultrasound showed mild dilation of the common bile duct and central intrahepatic biliary ducts. MRCP with mild dilation of CBD related to prior cholecystectomy, no evidence of obstructing stone or mass. Continue to monitor CMP (3) CHF (congestive heart failure): Code(s): I50.9 - Heart failure, unspecified Status: Acute Assessment and Plan: CXR on presentation showed mild pulmonary edema in the lower lungs, consistent with CHF. Echo reviewed from July 2021 with EF 25-30%. She appears euvolemic on exam. Continue PO metoprolol. Continue Lasix and Entresto. Monitor intake and output and weigh daily. (4) Hypokalemia: Code(s): E87.6 - Hypokalemia Status: Acute Assessment and Plan: Potassium is 4.0 today. Continue to monitor BMP (5) Pericardial effusion: Code(s): I31.3 - Pericardial effusion (noninflammatory) Status: Acute Assessment and Plan: Chronic, longstanding and unchanged. She has been evaluated by Cardiology in the past for this. She will need to continue to follow-up with cardiology as an outpatient (6) Dementia: Code(s): F03.90 - Unspecified dementia without behavioral disturbance Status: Acute Assessment and Plan: Progressive. She is A&Ox1 today. Mental status waxes and wanes. Monitor mental status closely. Continue seroquel at night. Limit sedating agents (7) Hypothyroidism: Code(s): E03.9 - Hypothyroidism, unspecified Status: Acute Assessment and Plan: TSH is within normal limits this admission. Continue levothyroxine 175 mcg daily. (8) Chronic kidney disease, stage 3: Code(s): N18.3 - Chronic kidney disease, stage 3 (moderate) Status: Chronic Assessment and Plan: Baseline appears to be 1.4-1.6. Slight increase in creatinine up to 1.8 but now back to baseline 1.5 today. Continue to monitor. Renally dose medications and avoid nephrotoxic agents. (9) Decreased appetite: Code(s): R63.0 - Anorexia Status: Acute Assessment and Plan: She has poor oral intake. Dietitian following. Continue Ensure. She should have assistance of all meals to help encourage oral intake Subjective Date/time seen: 09/17/21 14:14 Interval history: Date of service: 09/16/2021 Dhara Harry is an 81 year old female who is known to me from prior hospitalizations with a history of CHF, CKD, chronic anemia, paroxysmal atrial fibrillation, pericardial effusion, hypertension, hypothyroidism, and several other medical problems who is seen in follow-up for urinary tract infection. She seems to be doing well today. She tells me she is not having any pain. She denies shortness of breath, cough, chest pain. Denies abdominal pain. I tried to help her eat her lunch but she told me the food was too hot and she only took one sip of her Ensure. I told her we would let her food cool and she should try to eat something again soon. She needs assistance with meal
[2021-09-17] MEDS: LIDOCAINE HCL 1% LOCAL INJ 10 ML VIAL 3.2 ML XX (19:06)
[2021-09-17] MEDS: ERTAPENEM SODIUM 1 GM VIAL 0.5 GM IM (19:11)
[2021-09-17 19:33] VITALS: BP 100/75; PULSE 73; RESP 18; TEMP 36.6; O2SAT 94
[2021-09-17] MEDS: QUEtiapine FUMARATE 25 MG TABLET PO (20:45)
[2021-09-18 03:26] VITALS: BP 126/62; PULSE 69; RESP 18; TEMP 37.1; O2SAT 95
[2021-09-18] MEDS: ACETAMINOPHEN 325 MG TABLET 650 MG PO ×3 (05:26→20:32)
[2021-09-18] MEDS: LEVOTHYROXINE SODIUM 75 MCG TABLET PO (05:27)
[2021-09-18] MEDS: LEVOTHYROXINE SODIUM 100 MCG TABLET PO (05:27)
[2021-09-18 07:36] LABS: Hematocrit 34.4 % (37.0-47.0); Hemoglobin 10.4 g/dL (12.0-15.0); Mean Corpuscular HGB Conc 30.2 g/dl (32-36); Mean Corpuscular Volume 102.4 fl (80-100); Mean Platelet Volume 12.2 fl (7.4-10.4); Platelet Count Result 142 k/mm3 (150-375); Red Blood Count 3.36 M/mm3 (4.2-5.4); Red Cell Distribution Width 17.4 % (11.5-14.5); White Blood Count 7.2 K/mm3 (4.5-10.0)
[2021-09-18 07:47] LABS: Alanine Aminotransferase 106 U/L (4-35); Albumin Level 2.9 g/dL (3.5-5.1); Alkaline Phosphatase 171 U/L (38-126); Anion Gap 10 mmol/L (8-16); Aspartate Amino Transferase 36 U/L (14-36); Blood Urea Nitrogen 59 mg/dL (7-17); Calcium 8.3 mg/dL (8.4-10.2); Carbon Dioxide 22 mmol/L (22-30); Chloride 116 mmol/L (98-107); Estimated CRCL calculation 21 ml/min; Estimated Glomerular Filt Rate 33; Glucose 103 mg/dL (65-110); Potassium 4.1 mmol/L (3.4-5.0); Sodium 148 mmol/L (137-145)
[2021-09-18 08:16] VITALS: PULSE 69
[2021-09-18] MEDS: FUROSEMIDE 20 MG TABLET PO (08:16)
[2021-09-18] MEDS: ATORVASTATIN 40 MG TABLET PO (08:16)
[2021-09-18] MEDS: FERROUS SULFATE 324 MG TABLET PO (08:16)
[2021-09-18] MEDS: METOPROLOL SUCCINATE EXT REL 50 MG TABCR PO (08:16)
[2021-09-18] MEDS: hydrALAZINE 10 MG TABLET PO (08:16)
[2021-09-18] MEDS: CHOLECALCIFEROL 1,000 UNITS TABLET 5000 UNITS PO (08:16)
[2021-09-18] MEDS: guaiFENesin 12 HR 600 MG TABCR PO ×2 (08:16→20:29)
[2021-09-18] MEDS: CLOPIDOGREL BISULFATE 75 MG TABLET PO (08:16)
[2021-09-18] MEDS: PANTOPRAZOLE 40 MG TABLET PO ×2 (08:17→20:29)
[2021-09-18] MEDS: valACYclovir HCL 500 MG TABLET PO ×2 (08:17→20:29)
[2021-09-18] MEDS: prednisoLONE ACETATE 1% OPHTH 5 ML 1 DROP EACH EYE (08:17)
[2021-09-18] MEDS: SACUBITRIL/VALSARTAN 24-26 MG TABLET 1 TAB PO ×2 (08:17→20:29)
--- NOTE | 2021-09-18 09:10 | PM.IMPN ---
Progress Note: A&P Assessment and Plan (1) UTI (urinary tract infection): Code(s): N39.0 - Urinary tract infection, site not specified Status: Acute Assessment and Plan: Urine culture with growth of Klebsiella oxytoca ESBL. She was initially started on Rocephin, discontinued 09/12/2021 after receiving cultures. Continue IV ertapenem, started on 09/12, renally dosed. Blood cultures negative. Difficulty with IV access due to patient removing lines. She lost IV access yesterday. Received IM ertapenem and will do one more dose of IM ertapenem today to complete 7 days of antibiotic therapy. (2) Transaminitis: Code(s): R74.01 - Elevation of levels of liver transaminase levels Status: Acute Assessment and Plan: Etiology for this is unclear. LFTs have been mildly elevated in the past with marked increase this admission with slow but steady improvement. Abdominal ultrasound showed mild dilation of the common bile duct and central intrahepatic biliary ducts. MRCP with mild dilation of CBD related to prior cholecystectomy, no evidence of obstructing stone or mass. Continue to monitor CMP (3) CHF (congestive heart failure): Code(s): I50.9 - Heart failure, unspecified Status: Acute Assessment and Plan: CXR on presentation showed mild pulmonary edema in the lower lungs, consistent with CHF. Echo reviewed from July 2021 with EF 25-30%. She appears euvolemic on exam. Continue PO metoprolol. Continue Lasix and Entresto. Monitor intake and output and weigh daily. (4) Hypokalemia: Code(s): E87.6 - Hypokalemia Status: Acute Assessment and Plan: Potassium is 4.1 today. Continue to monitor BMP (5) Pericardial effusion: Code(s): I31.3 - Pericardial effusion (noninflammatory) Status: Acute Assessment and Plan: Chronic, longstanding and unchanged. She has been evaluated by Cardiology in the past for this. She will need to continue to follow-up with cardiology as an outpatient (6) Dementia: Code(s): F03.90 - Unspecified dementia without behavioral disturbance Status: Acute Assessment and Plan: Progressive. She is A&Ox1 today. Mental status waxes and wanes. Monitor mental status closely. Continue seroquel at night. Limit sedating agents (7) Hypothyroidism: Code(s): E03.9 - Hypothyroidism, unspecified Status: Acute Assessment and Plan: TSH is within normal limits this admission. Continue levothyroxine 175 mcg daily. (8) Chronic kidney disease, stage 3: Code(s): N18.3 - Chronic kidney disease, stage 3 (moderate) Status: Chronic Assessment and Plan: Baseline appears to be 1.4-1.6. Slight increase in creatinine up to 1.8 but now back to baseline 1.5 today. Continue to monitor. Renally dose medications and avoid nephrotoxic agents. (9) Decreased appetite: Code(s): R63.0 - Anorexia Status: Acute Assessment and Plan: She has poor oral intake. Dietitian following. Continue Ensure. She should have assistance of all meals to help encourage oral intake. She ate half of her breakfast this morning. Additional Plan Awaiting insurance authorization for SNF. Subjective Date/time seen: 09/18/21 09:10 Interval history: Date of service: 09/16/2021 Dhara Harry is an 81 year old female who is known to me from prior hospitalizations with a history of CHF, CKD, chronic anemia, paroxysmal atrial fibrillation, pericardial effusion, hypertension, hypothyroidism, and several other medical problems who is seen in follow-up for urinary tract infection. She is doing well today. She is talkative. She tells me that she feels comfortable. She does complain of some pain in her knees, and mentioned that someone has told her she needs knee surgery. She says that she wants something cold to drink. She did eat more of her breakfast today. I spoke with her nurse
[2021-09-18 14:57] VITALS: BP 112/63; PULSE 109; RESP 30; TEMP 36.1; O2SAT 90
[2021-09-18] MEDS: ERTAPENEM SODIUM 1 GM VIAL 0.5 GM IM (18:29)
[2021-09-18] MEDS: LIDOCAINE HCL 1% LOCAL INJ 10 ML VIAL 3.2 ML XX (18:29)
[2021-09-18 20:00] VITALS: O2SAT 95
[2021-09-18] MEDS: QUEtiapine FUMARATE 25 MG TABLET PO (20:29)
[2021-09-18 22:00] VITALS: BP 112/70; PULSE 102; RESP 16; TEMP 36.1
[2021-09-19 06:00] VITALS: BP 121/72; PULSE 94; RESP 16; TEMP 36.1; O2SAT 96
[2021-09-19 06:17] LABS: Hematocrit 32.2 % (37.0-47.0); Hemoglobin 9.8 g/dL (12.0-15.0); Mean Corpuscular HGB Conc 30.4 g/dl (32-36); Mean Corpuscular Volume 98.5 fl (80-100); Mean Platelet Volume 12.3 fl (7.4-10.4); Platelet Count Result 163 k/mm3 (150-375); Red Blood Count 3.27 M/mm3 (4.2-5.4); Red Cell Distribution Width 17.2 % (11.5-14.5)
[2021-09-19] MEDS: LEVOTHYROXINE SODIUM 100 MCG TABLET PO (06:19)
[2021-09-19] MEDS: LEVOTHYROXINE SODIUM 75 MCG TABLET PO (06:20)
[2021-09-19 06:26] LABS: Alanine Aminotransferase 84 U/L (4-35); Albumin Level 2.7 g/dL (3.5-5.1); Alkaline Phosphatase 153 U/L (38-126); Anion Gap 11 mmol/L (8-16); Aspartate Amino Transferase 28 U/L (14-36); Bilirubin,Total 0.9 mg/dL (0.2-1.3); Blood Urea Nitrogen 62 mg/dL (7-17); Calcium 8.2 mg/dL (8.4-10.2); Carbon Dioxide 20 mmol/L (22-30); Chloride 116 mmol/L (98-107); Estimated CRCL calculation 21 ml/min; Estimated Glomerular Filt Rate 33; Glucose 96 mg/dL (65-110); Potassium 3.9 mmol/L (3.4-5.0); Sodium 147 mmol/L (137-145)
[2021-09-19] MEDS: ACETAMINOPHEN 325 MG TABLET 650 MG PO ×2 (08:20→18:40)
[2021-09-19] MEDS: ATORVASTATIN 40 MG TABLET PO (08:23)
[2021-09-19] MEDS: SACUBITRIL/VALSARTAN 24-26 MG TABLET 1 TAB PO ×2 (08:23→20:13)
[2021-09-19] MEDS: FUROSEMIDE 20 MG TABLET PO ×2 (08:23→17:04)
[2021-09-19] MEDS: guaiFENesin 12 HR 600 MG TABCR PO ×2 (08:23→20:13)
[2021-09-19] MEDS: hydrALAZINE 10 MG TABLET PO (08:23)
[2021-09-19 08:24] VITALS: PULSE 94
[2021-09-19] MEDS: PANTOPRAZOLE 40 MG TABLET PO ×2 (08:24→20:13)
[2021-09-19] MEDS: CLOPIDOGREL BISULFATE 75 MG TABLET PO (08:24)
[2021-09-19] MEDS: FERROUS SULFATE 324 MG TABLET PO (08:24)
[2021-09-19] MEDS: METOPROLOL SUCCINATE EXT REL 50 MG TABCR PO (08:24)
[2021-09-19] MEDS: prednisoLONE ACETATE 1% OPHTH 5 ML 1 DROP EACH EYE (08:24)
[2021-09-19] MEDS: CHOLECALCIFEROL 1,000 UNITS TABLET 5000 UNITS PO (08:24)
[2021-09-19] MEDS: valACYclovir HCL 500 MG TABLET PO ×2 (08:26→20:13)
--- NOTE | 2021-09-19 09:31 | PCOTNOTE ---
Attempted to see patient for OT this AM. Patient just finished working with PT and is too tired at this time. Will continue to attempt.
[2021-09-19 14:50] VITALS: BP 110/69; PULSE 95; RESP 20; TEMP 36.4; O2SAT 99
--- NOTE | 2021-09-19 15:20 | PM.IMPN ---
Progress Note: A&P Assessment and Plan (1) UTI (urinary tract infection): Code(s): N39.0 - Urinary tract infection, site not specified Status: Acute Assessment and Plan: Urine culture with growth of Klebsiella oxytoca ESBL. She has completed 7 days of IV ertapenem. Blood cultures negative. (2) Transaminitis: Code(s): R74.01 - Elevation of levels of liver transaminase levels Status: Acute Assessment and Plan: Etiology for this is unclear. LFTs have been mildly elevated in the past with marked increase this admission with slow but steady improvement. AST has normalized, ALT and alk phos improving. Abdominal ultrasound showed mild dilation of the common bile duct and central intrahepatic biliary ducts. MRCP with mild dilation of CBD related to prior cholecystectomy, no evidence of obstructing stone or mass. Continue to monitor CMP (3) CHF (congestive heart failure): Code(s): I50.9 - Heart failure, unspecified Status: Acute Assessment and Plan: CXR on presentation showed mild pulmonary edema in the lower lungs, consistent with CHF. Echo reviewed from July 2021 with EF 25-30%. She appears euvolemic on exam. Continue PO metoprolol. Continue Lasix, increase to 20 mg BID and Entresto. Monitor intake and output and weigh daily. (4) Hypokalemia: Code(s): E87.6 - Hypokalemia Status: Acute Assessment and Plan: Potassium is 3.9 today. Continue to monitor BMP (5) Pericardial effusion: Code(s): I31.3 - Pericardial effusion (noninflammatory) Status: Acute Assessment and Plan: Chronic, longstanding and unchanged. She has been evaluated by Cardiology in the past for this. She will need to continue to follow-up with cardiology as an outpatient (6) Dementia: Code(s): F03.90 - Unspecified dementia without behavioral disturbance Status: Acute Assessment and Plan: Progressive. She is A&Ox1 today. Mental status waxes and wanes. Monitor mental status closely. Continue seroquel at night. Limit sedating agents (7) Hypothyroidism: Code(s): E03.9 - Hypothyroidism, unspecified Status: Acute Assessment and Plan: TSH is within normal limits this admission. Continue levothyroxine 175 mcg daily. (8) Chronic kidney disease, stage 3: Code(s): N18.3 - Chronic kidney disease, stage 3 (moderate) Status: Chronic Assessment and Plan: Baseline appears to be 1.4-1.6. Slight increase in creatinine up to 1.8 but now back to baseline 1.5 today. Continue to monitor. Renally dose medications and avoid nephrotoxic agents. (9) Decreased appetite: Code(s): R63.0 - Anorexia Status: Acute Assessment and Plan: She has poor oral intake. Dietitian following. Continue Ensure. She should have assistance of all meals to help encourage oral intake. She ate 35% of her breakfast this morning. Subjective Date/time seen: 09/19/21 15:20 Interval history: Date of service: 09/17/2021 Dhara Harry is an 81 year old female who is known to me from prior hospitalizations with a history of CHF, CKD, chronic anemia, paroxysmal atrial fibrillation, pericardial effusion, hypertension, hypothyroidism, and several other medical problems who is seen in follow-up for urinary tract infection. She is pleasantly confused today and told me that she was . She told me she ate a small amount of her breakfast this morning. She denies abdominal pain. No nausea or vomiting. No shortness of breath. Not able to obtain any further history. Review of Systems Review of Systems: Limited review of systems given mental status with pertinent positives and negatives as per HPI. Exam Narrative: Ms. Harry is a thin, frail 81-year-old female who is lying supine in bed. She appears comfortable and is in NARD. Neuro: Awake, alert and oriented to self. Answering most questions appr
[2021-09-19] MEDS: QUEtiapine FUMARATE 25 MG TABLET PO (20:13)
[2021-09-19 20:33] VITALS: BP 115/63; PULSE 79; RESP 18; TEMP 35.9; O2SAT 100
--- NOTE | 2021-09-20 01:22 | PC.NURSE ---
Pt anxious and crying, making seral attempts to get up and unable to redirect patient. Ativan given as ordered.
[2021-09-20] MEDS: LORazepam INJ (*CRX) 2 MG/ML VIAL 0.5 MG IM (01:26)
[2021-09-20 03:33] VITALS: BP 105/48; PULSE 86; RESP 16; TEMP 36.4; O2SAT 93
[2021-09-20] MEDS: LEVOTHYROXINE SODIUM 100 MCG TABLET PO (06:05)
[2021-09-20] MEDS: LEVOTHYROXINE SODIUM 75 MCG TABLET PO (06:05)
[2021-09-20 06:32] LABS: Hematocrit 34.9 % (37.0-47.0); Hemoglobin 10.6 g/dL (12.0-15.0); Mean Corpuscular HGB Conc 30.4 g/dl (32-36); Mean Corpuscular Hemoglobin 30.5 pg (26-34); Mean Corpuscular Volume 100.6 fl (80-100); Mean Platelet Volume 12.4 fl (7.4-10.4); Platelet Count Result 181 k/mm3 (150-375); Red Blood Count 3.47 M/mm3 (4.2-5.4); Red Cell Distribution Width 17.2 % (11.5-14.5); White Blood Count 7.9 K/mm3 (4.5-10.0)
[2021-09-20 06:45] LABS: Anion Gap 12 mmol/L (8-16); Blood Urea Nitrogen 63 mg/dL (7-17); Calcium 8.2 mg/dL (8.4-10.2); Carbon Dioxide 21 mmol/L (22-30); Chloride 112 mmol/L (98-107); Estimated CRCL calculation 22 ml/min; Estimated Glomerular Filt Rate 33; Glucose 89 mg/dL (65-110); Potassium 4.2 mmol/L (3.4-5.0); Sodium 145 mmol/L (137-145)
[2021-09-20] MEDS: CHOLECALCIFEROL 1,000 UNITS TABLET 5000 UNITS PO (09:23)
[2021-09-20] MEDS: hydrALAZINE 10 MG TABLET PO (09:23)
[2021-09-20] MEDS: prednisoLONE ACETATE 1% OPHTH 5 ML 1 DROP EACH EYE (09:23)
[2021-09-20] MEDS: FUROSEMIDE 20 MG TABLET PO (09:23)
[2021-09-20] MEDS: PANTOPRAZOLE 40 MG TABLET PO (09:23)
[2021-09-20 09:24] VITALS: PULSE 80
[2021-09-20] MEDS: SACUBITRIL/VALSARTAN 24-26 MG TABLET 1 TAB PO (09:24)
[2021-09-20] MEDS: METOPROLOL SUCCINATE EXT REL 50 MG TABCR PO (09:24)
[2021-09-20] MEDS: valACYclovir HCL 500 MG TABLET PO (09:24)
[2021-09-20] MEDS: CLOPIDOGREL BISULFATE 75 MG TABLET PO (09:24)
[2021-09-20] MEDS: FERROUS SULFATE 324 MG TABLET PO (09:24)
[2021-09-20] MEDS: ATORVASTATIN 40 MG TABLET PO (09:24)
[2021-09-20] MEDS: guaiFENesin 12 HR 600 MG TABCR PO (09:25)
--- NOTE | 2021-09-20 11:00 | PCNFU ---
Nutrition Follow-Up Complete: Underweight as related to dementia as evidenced by BMI 15.8 Goal: Adequate Intake of at least 75% of meals/supplements Patient has limited progress towards goal. We will continue current goal. Pt current nutrition is Regular with Ensure Enlive BID. Last recorded weight is 53 kg, up from 50 kg on admit. Bowel Motility:+BM reported on 09/19 Labs Reviewed:Cr 1.5,GFR 33, BUN 63, Hct 34.9,Hgb 10.6 Meds Noted:Synthroid, Toprol, Lipitor, Ferrous Sulfate, Vit D, Plavix, Mucinix, Lasix Skin:WNL Additional Notes: Patient seen today for nutrition follow up. She was getting ready to eat her breakfast. Oral Intake has been poor-10-50% reported with meal refusals. PO intake has been encouraged. Ensure Enlive is providing patient with an additional 350 kcals and 20 gms protein. Agree with diet orders. Monitoring: Will monitor every 3 days.
[2021-09-20 11:56] LABS: EDCOVIDSCREEN Negative (Negative)
--- NOTE | 2021-09-20 13:58 | PM.DS ---
DS: Admitting Diagnosis Discharge Date 09/20/2021 Admitting Diagnosis Urinary tract infection DS: Discharge Diagnosis Discharge Diagnosis (1) UTI (urinary tract infection): Code(s): N39.0 - Urinary tract infection, site not specified Status: Acute Assessment and Plan: Urine culture with growth of Klebsiella oxytoca ESBL. She completed 7 days of IV ertapenem. Blood cultures negative. (2) Transaminitis: Code(s): R74.01 - Elevation of levels of liver transaminase levels Status: Acute Assessment and Plan: Etiology for this is unclear. LFTs have been mildly elevated in the past with marked increase this admission with slow but steady improvement. AST has normalized, ALT and alk phos improving. Abdominal ultrasound showed mild dilation of the common bile duct and central intrahepatic biliary ducts. MRCP with mild dilation of CBD related to prior cholecystectomy, no evidence of obstructing stone or mass. Recommend follow-up with PCP for repeat labs in 2 weeks to monitor for resolution (3) CHF (congestive heart failure): Code(s): I50.9 - Heart failure, unspecified Status: Acute Assessment and Plan: CXR on presentation showed mild pulmonary edema in the lower lungs, consistent with CHF. Echo reviewed from July 2021 with EF 25-30%. She appears euvolemic on exam though imaging did suggest edema. Continue PO metoprolol, lasix, and Entresto. Continue with outpatient cardiology follow up. Unfortunately, the patient is at high risk for readmission. She has had multiple admissions over the past several months and even more frequent ER visits. (4) Hypokalemia: Code(s): E87.6 - Hypokalemia Status: Acute Assessment and Plan: Potassium levels remained stable following supplementation. Continue PO potassium 40 meq daily (5) Pericardial effusion: Code(s): I31.3 - Pericardial effusion (noninflammatory) Status: Acute Assessment and Plan: Chronic, longstanding and unchanged. She has been evaluated by Cardiology in the past for this. She will need to continue to follow-up with cardiology as an outpatient (6) Dementia: Code(s): F03.90 - Unspecified dementia without behavioral disturbance Status: Acute Assessment and Plan: She was typically oriented to self only during her admission. I discussed with her daughter and with her that unfortunately this will continue to progress. Given her cognitive decline and medical comorbidities, I did discuss the patient's code status with her daughter, who is her surrogate decision maker. She states that this time she would like her to be full code while she has time to discuss with the patient's , who is having a harder time grasping the patients mental status. I also discussed hospice care with the patient's daughter reports that she would like to consider this after the patient is moved from rehab to residential [facility]. (7) Hypothyroidism: Code(s): E03.9 - Hypothyroidism, unspecified Status: Acute Assessment and Plan: TSH is within normal limits this admission. Continue levothyroxine 175 mcg daily. (8) Chronic kidney disease, stage 3: Code(s): N18.3 - Chronic kidney disease, stage 3 (moderate) Status: Chronic Assessment and Plan: Renal function remained generally consistent. (9) Decreased appetite: Code(s): R63.0 - Anorexia Status: Acute Assessment and Plan: She had poor oral intake. This is likely due to her progressive dementia. She was seen by the dietitian. Dietary supplements were provided. She did eat more wants she had assistance with her meals. She should continue with dietary supplements at [facility] and should have assistance with all of her meals. DS: Summary Hospital Course Hospital Course: Date of admission: 09/10/2021 Date of discharge: 09/20/2021 Alena
== END 2021-09-20 15:47 | DRG 690 ==
LOC: ANHED 08:20 → ANH2MED 17:43
PROVIDERS: Emergency Medicine; Family Medicine; Nurse Practitioner; Physician Assistant; Admitting Provider Internal Medicine; Emergency Provider Emergency Medicine; PCP Family Medicine; Visit Provider Internal Medicine
DX: N39.0 Urinary tract infection, site not specified (principal); I31.3 Pericardial effusion (noninflammatory); I13.0 Hypertensive heart and chronic kidney disease with heart failure and stage 1 through stage 4 chronic kidney disease, or unspecified chronic kidney disease; I50.42 Chronic combined systolic (congestive) and diastolic (congestive) heart failure; Z16.12 Extended spectrum beta lactamase (ESBL) resistance; B96.89 Other specified bacterial agents as the cause of diseases classified elsewhere; F03.90 Unspecified dementia, unspecified severity, without behavioral disturbance, psychotic disturbance, mood disturbance, and anxiety; N18.32 Chronic kidney disease, stage 3b; E87.6 Hypokalemia; R63.0 Anorexia; R74.01 Elevation of levels of liver transaminase levels; E03.9 Hypothyroidism, unspecified; I25.10 Atherosclerotic heart disease of native coronary artery without angina pectoris; F41.8 Other specified anxiety disorders; I25.5 Ischemic cardiomyopathy; G47.33 Obstructive sleep apnea (adult) (pediatric); Z79.899 Other long term (current) drug therapy; Z88.0 Allergy status to penicillin; Z98.42 Cataract extraction status, left eye; Z98.41 Cataract extraction status, right eye; Z90.49 Acquired absence of other specified parts of digestive tract
CPT/HCPCS: 36415; 70450; 71046; 74181; 76376; 76705; 80048; 80053; 80074; 81001; 82728; 83605; 83615; 83690; 83735; 84132; 84439; 84443; 85025; 85027; 85610; 85730; 87040; 87077; 87086; 87088; 87186; 87426; 93005; 96365; 96375; 96376; 97110; 97116; 97161; 97165; 97530; 97535; 99285; A9270; C9803; G0378; J0696; J1335; J2060

== ENCOUNTER 2021-09-23 11:09 | Inpatient (IN) | payer MEDICARE, SELFPAY ==
[2021-09-23] VITALS (37 sets, daily range): BP systolic 117–136; BP diastolic 74–101; PULSE 60–124; RESP 12–30; TEMP 36.3–36.7; O2SAT 96–100
--- NOTE | ~2021-09-23 | XR_ITS ---
EXAMINATION: XR chest 2V DATE: 09/23/2021 12:51 INDICATION: Shortness of breath. TECHNIQUE: Frontal and lateral views of the chest were obtained. COMPARISON: Chest 2 views 09/16/2021, chest CT 08/08/2021 FINDINGS: There are airspace opacities in the lower lung zones. Sushil B-lines are noted, consistent with mild pulmonary edema. There is mild scarring at the lung apices. No pneumothorax. There are smal l pleural effusions. There is enlargement of the cardiac silhouette. IMPRESSION: 1. Airspace opacities in the lower lung zones, consistent with atelectasis versus pneumonia. 2. Mild pulmonary edema. 3. Stable small pleural effusions. 4. Stable enlargement of the cardiac silhouette, likely a combination of cardiomegaly and pericardial effusion as seen on the prior CT. Reviewed, dictated and finalized at location A. SPECIALIST IMPRESSION: 1. Airspace opacities in the lower lung zones, consistent with atelectasis vers us pneumonia. 2. Mild pulmonary edema. 3. Stable small pleural effusions. 4. Stable enlargement of the cardiac silhouette, likely a combination of cardio megaly and pericardial effusion as seen on the prior CT.
--- NOTE | ~2021-09-23 | US_ITS ---
EXAMINATION: US art doppler w press LE BI DATE: 09/23/2021 18:24 INDICATION: Peripheral arterial disease. TECHNIQUE: Segmental pressures and plethysmographic and Doppler waveforms of the brachial and lower e xtremity arteries were obtained. COMPARISON: None. FINDINGS: Pressures of the brachial arteries and lower limb arteries could not be measured due to patient nonco mpliance. In the right lower limb, arterial waveforms are at least triphasic in common femoral artery , superficial femoral artery, and popliteal artery and biphasic at the ankle. In left lower limb, wav eforms are at least triphasic in common femoral artery, superficial femoral artery, and popliteal art mason and at least biphasic at the ankle. IMPRESSION: 1. Arterial pressures could not be measured due to patient noncompliance. 2. Normal phasicity of the lower limb arteries. Reviewed, dictated and finalized at location A. ANT SORTER
--- NOTE | ~2021-09-23 | XR_ITS ---
XR chest 1V portable 09/27/2021 09:34 Indication: Pneumonia. Procedure: AP portable chest Comparison: Comparison to multiple prior studies sequentially, with oldest reviewed study dated 08/09. Findings: Cardiomegaly. Bibasilar airspace disease, consistent with pneumonia. Small left pleural eff usion. No pneumothorax. Moderate degenerative change of the glenohumeral joints. There is atheroscler osis of the aorta. Impression: 1: Unchanged bibasilar airspace disease, compatible with pneumonia. 2: Small left pleural effusion. 3: Stable enlarged cardiopericardial silhouette. Cannot exclude pericardial effusion. Reviewed, dictated and finalized at location A. SMISSION DESIGN ENGINEER Impression: 1: Unchanged bibasilar airspace disease, compatible with pneumonia. 2: Small left pleural effusion. 3: Stable enlarged cardiopericardial silhouette. Cannot exclude pericardial eff usion.
--- NOTE | 2021-09-23 12:18 | ECG_ITS ---
Measurements Intervals [place] Rate: 95 P: [place]: 0 QRS: -71 QRSD: 108 T: 88 QT: 377 QTc: 475 Interpretive Statements WANDERING PACEMAKER ATRIAL AND VENTRICULAR PREMATURE COMPLEXES LEFT ANTERIOR FASCICULAR BLOCK ANTEROSEPTAL INFARCT, AGE INDETERMINATE BORDERLINE T WAVE ABNORMALITY- INF/HIGH LAT LEADS BASELINE ARTIFACT- I, II, III, AVR, AVF, V2-V6 ABNORMAL ECG Electronically Signed On 09-23-2021 12:24:15 PLATE PUT IN WORKER by Marlon Joe D.O.
[2021-09-23 12:31] LABS: Basophils Percent Auto 0.4 % (0.2-1.2); Eosinophils Percent Auto 0.5 % (0-4.4); Hematocrit 38.7 % (37.0-47.0); Hemoglobin 11.7 g/dL (12.0-15.0); Immature Granulocyte Absolute 0.03 K/mm3 (0.00-0.031); Immature Granulocyte Percent A 0.4 % (0-0.5); Lymphocytes Absolute Auto 0.67 K/mm3 (0.9-3.2); Lymphocytes Percent Auto 8.6 % (18.3-44.2); Mean Corpuscular HGB Conc 30.2 g/dl (32-36); Mean Corpuscular Hemoglobin 30.4 pg (26-34); Mean Corpuscular Volume 100.5 fl (80-100); Mean Platelet Volume 12.5 fl (7.4-10.4); Monocytes Absolute Auto 0.9 K/mm3 (0.1-0.6); Monocytes Percent Auto 11.5 % (2.6-8.5); Neutrophils Absolute Auto 6.1 K/mm3 (1.3-6.7); Neutrophils Percent Auto 78.6 % (45.5-73.1); Platelet Count Result 226 k/mm3 (150-375); Red Blood Count 3.85 M/mm3 (4.2-5.4); Red Cell Distribution Width 17.3 % (11.5-14.5); White Blood Count 7.8 K/mm3 (4.5-10.0)
[2021-09-23 12:49] LABS: Alanine Aminotransferase 53 U/L (4-35); Albumin Level 3.5 g/dL (3.5-5.1); Alkaline Phosphatase 146 U/L (38-126); Anion Gap 9 mmol/L (8-16); Aspartate Amino Transferase 42 U/L (14-36); Bilirubin,Total 1.1 mg/dL (0.2-1.3); Blood Urea Nitrogen 47 mg/dL (7-17); Calcium 8.5 mg/dL (8.4-10.2); Carbon Dioxide 26 mmol/L (22-30); Chloride 109 mmol/L (98-107); Estimated CRCL calculation 25 ml/min; Estimated Glomerular Filt Rate 39; Glucose 103 mg/dL (65-110); Potassium 4.5 mmol/L (3.4-5.0); Sodium 144 mmol/L (137-145)
--- NOTE | 2021-09-23 13:25 | ED.GENADULT ---
HPI - General Adult General Chief complaint: Shortness of Breath/Dyspnea Stated complaint: LETHARGY, HYPOTENSIVE Time Seen by Provider: 09/23/21 12:16 History of Present Illness HPI narrative: 81-year-old female presenting [facility] emergency department [facility] for reported hypotension and hypoxia. half-way was concerned because they were getting blood pressures of 80/30. Upon arrival to the emergency department patient's blood pressures were in the 119-120 systolic range. Patient is typically only alert and oriented x2 at her baseline. half-way states that she is currently at her normal mental baseline. Related Data Home Medications Medication Instructions Recorded Confirmed furosemide 20 mg tablet 20 mg PO QAM 12/15/20 09/10/21 nitroglycerin 0.4 mg sublingual 0.4 mg SUBLINGUAL PRN PRN 12/15/20 09/10/21 tablet Entresto 1 tablet PO BID 02/10/21 09/10/21 oxybutynin chloride 10 mg 10 mg PO DAILY 04/18/21 09/10/21 tablet,extended release 24 hr cholecalciferol (vitamin D3) 5,000 unit PO DAILY 04/29/21 09/10/21 hydralazine 10 mg PO DAILY 06/09/21 09/10/21 metoprolol succinate [Toprol XL] 50 mg PO DAILY 06/09/21 09/10/21 prednisolone acetate [Pred Forte] 1 drp EACH EYE DAILY 06/09/21 09/10/21 clopidogrel [Plavix] 75 mg PO DAILY 08/08/21 09/10/21 pantoprazole 40 mg PO Q12H 08/08/21 09/10/21 valacyclovir 500 mg PO BID 08/08/21 09/10/21 Allergies Allergy/AdvReac Type Severity Reaction Status Date / Time Penicillins Allergy Unknown Rash Verified 09/10/21 15:47 Review of Systems Review of Systems: ROS unobtainable: Yes unobtainable due to mental status (Patient denies any complaints but does have significant dementia) PMFSH Past Medical History Medical History Anxiety and depression Chronic anemia Chronic kidney disease, stage 3b Creatinine ranges between 1.5 and 2.00 Congestive heart failure Echocardiogram on 07/28/2021 showed normal left ventricular size with mild concentric left ventricular hypertrophy and severe global hypokinesis with no segmental wall abnormalities and a calculated ejection fraction of 38% however visual estimate was in the 25 to 30% range as well as diastolic dysfunction grade 2 with severely enlarged left atrial chamber and a large pericardial effusion, mostly posterior, with right atrial and ventricular collapse consistent with cardiac tamponade physiology. Coronary artery disease With multivessel surgical revascularization with PCI at [facility] October 2017. Cardiac catheterization 10/17/2018-mild preserved intra-stent luminal diameter Dementia Depression with anxiety Detached retina Right-sided, x2. Frequent headaches Gastroesophageal reflux disease History of GI bleed Hyperlipidemia Hypertension Hypothyroidism Irritable bowel syndrome Ischemic cardiomyopathy Mitral valve prolapse Myasthenia gravis Questionable history of, poorly documented. Obstructive sleep apnea Ocular herpes zoster History of shingles to the left eye, on chronic antiviral therapy. Paroxysmal atrial fibrillation No longer on long-term anticoagulation due to history of falls. Peripheral neuropathy Rectal polyp Restless leg syndrome Shingles Solitary rectal ulcer syndrome Surgical History Surgical History Status post appendectomy Status post bilateral hip replacements Status post bilateral knee replacements Status post breast biopsy Bilateral with benign histology. Status post carpal tunnel release Status post cataract extraction Bilateral. Status post cholecystectomy Status post dilatation of esophageal stricture Status post laminectomy Lumbar spine. Status post LASIK surgery Status post rotator cuff repair Status post tonsillectomy Family History Family History Mother Cerebrovascular accident Diabetes mellitus Hypertension Si
[2021-09-23 13:32] LABS: Add Urine Microscopic? YES; Appearance Urine Clear (Clear); Bilirubin Urine Negative (Negative); Blood Urine Negative (Negative); Color Urine Yellow (Yellow); Glucose Urine UA Negative (Negative); Ketones Urine Negative (Negative); Leukocyte Esterase Ur Negative LEU/UL (Negative); Mucus Urine Rare /lpf; Nitrate Urine Negative (Negative); Protein Urine 1+ mg/dL (Negative); RBC Urine 0-2 /hpf (0-2); Specific Grav Ur 1.016 (1.001-1.035); Squamous Epithelial Cell Urine Rare /hpf (Few); Urobilinogen Urine Negative mg/dL (<2.0); WBC Urine 0-3 /hpf
[2021-09-23 15:03] LABS: Basophils Percent Auto 0.3 % (0.2-1.2); Eosinophils Absolute Auto 0.1 K/mm3 (0-0.3); Eosinophils Percent Auto 0.7 % (0-4.4); Hematocrit 33.8 % (37.0-47.0); Hemoglobin 10.4 g/dL (12.0-15.0); Immature Granulocyte Absolute 0.04 K/mm3 (0.00-0.031); Immature Granulocyte Percent A 0.5 % (0-0.5); Lymphocytes Absolute Auto 0.74 K/mm3 (0.9-3.2); Lymphocytes Percent Auto 9.7 % (18.3-44.2); Mean Corpuscular HGB Conc 30.8 g/dl (32-36); Mean Corpuscular Hemoglobin 30.7 pg (26-34); Mean Corpuscular Volume 99.7 fl (80-100); Monocytes Absolute Auto 0.8 K/mm3 (0.1-0.6); Monocytes Percent Auto 10.5 % (2.6-8.5); Neutrophils Percent Auto 78.3 % (45.5-73.1); Platelet Count Result 228 k/mm3 (150-375); Red Blood Count 3.39 M/mm3 (4.2-5.4); Red Cell Distribution Width 17.2 % (11.5-14.5); White Blood Count 7.7 K/mm3 (4.5-10.0)
[2021-09-23 15:13] LABS: Lactic Acid Reflex 0.9 mmol/L (0.7-2.1)
[2021-09-23 15:14] LABS: Alanine Aminotransferase 49 U/L (4-35); Albumin Level 3.4 g/dL (3.5-5.1); Alkaline Phosphatase 140 U/L (38-126); Anion Gap 7 mmol/L (8-16); Aspartate Amino Transferase 37 U/L (14-36); Bilirubin,Total 1.1 mg/dL (0.2-1.3); Blood Urea Nitrogen 43 mg/dL (7-17); Calcium 8.3 mg/dL (8.4-10.2); Carbon Dioxide 25 mmol/L (22-30); Chloride 109 mmol/L (98-107); Estimated CRCL calculation 30 ml/min; Estimated Glomerular Filt Rate 48; Glucose 125 mg/dL (65-110); Potassium 3.9 mmol/L (3.4-5.0); Sodium 141 mmol/L (137-145)
[2021-09-23] MEDS: HALOPERIDOL LACTATE 5 MG/ML VIAL 2 MG IM (16:01)
--- NOTE | 2021-09-23 17:05 | PM.IMHP ---
H&P: HPI History of Present Illness Date/Time: 09/23/21 17:05 this is a 81-year-old female patient who is well known to me. The patient came from the senior living to the emergency room for reported hypotension and hypoxia. It was reported that the patient's blood pressure was 80/30. Upon arrival to the emergency room her blood pressure was in the 119-120 systolic range. The patient is very hard of hearing which she was awake and talking to me. The patient is read able to recall her and deferred events that occurred during their marriage. However she was not able to give the date or the president. Patient is currently at her baseline. Her H&H is at her baseline at 10.4 and 33.8. BUN is 43 and creatinine 1.1 which is her baseline. GFR is 48 which is her baseline. Her AST slightly elevated at 37. ALT is 49 which is lower than her normal and alkaline phosphatase is 140 which is lower than her normal. Her urine was negative for UTI. Patient's chest x-ray was read as airspace opacities in the lower lung zones consistent with atelectasis versus pneumonia. Mild pulmonary edema. Stable small pleural effusions. Stable enlargement of the cardiac silhouette likely a combination cardiomegaly and pericardial effusion as seen on the prior CT. However the patient does not have a white count or a fever. Patient's chest x-ray was consistent with previous chest x-ray 1 week ago. The patient was started on cefepime in the emergency room. Patient was pretty talkative. Several attempts were made to obtain ABGs without success. The patient was given Haldol in the emergency room. The patient is being admitted to inpatient services on 09/23/2021. Chief Complaint: Hypoxia and hypotension Review of Systems Review of Systems: All systems reviewed & are unremarkable except as noted in HPI and below Constitutional: Constitutional: Reports as per HPI and Reports no additional constitutional complaints Eyes: Eyes: Reports as per HPI and Reports no additional eye complaints ENT: Reports system reviewed and no additional complaints, except as documented and Reports Normal hearing present Cardiovascular: Cardiovascular: Reports no additional cardiovascular complaints Respiratory: Respiratory: Reports no additional respiratory complaints and Reports no additional respiratory complaints Gastrointestinal: Gastrointestinal: Reports as per HPI and Reports no additional gastrointestinal complaints Musculoskeletal: Musculoskeletal: Reports no additional musculoskeletal complaints Integumentary/Breasts: Skin/Breast: Reports system reviewed and no additional complaints, except as docu and Reports as per HPI Neurologic: Reports system reviewed and no additional complaints, except as documented, Reports as per HPI and Reports Normal hearing present Psychiatric: Psychiatric: Reports no additional psychiatric complaints and Reports as per HPI Endocrine: Endocrine: Reports no additional endocrine complaints Hematologic/Lymphatic: Hematologic/Lymphatic: Reports no additional hematologic/lymphatic complaints Allergic/Immunologic: Allergic/Immunologic: Reports no additional allergic/immunologic complaints [facility] Past Medical History Medical History Anxiety and depression Chronic anemia Chronic kidney disease, stage 3b Creatinine ranges between 1.5 and 2.00 Congestive heart failure Echocardiogram on 07/28/2021 showed normal left ventricular size with mild concentric left ventricular hypertrophy and severe global hypokinesis with no segmental wall abnormalities and a calculated ejection fraction of 38% however visual estimate was in the 25 to 30% range as well as diastolic dysfunction grade 2 with severely enlarged left atrial chamber and a large pericardial effusion, mostly posterior, with right atrial and ventricular collapse consistent with cardiac tamponade physiology. Coronary artery disease With multivessel
[2021-09-23 17:10] LABS: EDCOVIDSCREEN Negative (Negative)
--- NOTE | 2021-09-23 20:12 | ADMGEN ---
This patient, Dhara Harry, was admitted to Medical Room [facility] at 1900. Patient/family oriented to hospital policies and general routines including ID bracelet, bed and alarms, visiting hours, pain management, procedures, bathroom and other care routines, personal items, smoking policy, room service/diet, and visiting hours. Information on how to activate the Rapid Response Team has been discussed. Patient/Family are encouraged to report perceived risks to care and to ask questions if they do not understand what they are told or what they should do.
[2021-09-23] MEDS: HALOPERIDOL LACTATE 5 MG/ML VIAL IM (20:16)
[2021-09-23] MEDS: SACUBITRIL/VALSARTAN 24-26 MG TABLET 1 TAB PO (21:54)
[2021-09-23] MEDS: valACYclovir HCL 500 MG TABLET PO (21:55)
[2021-09-23] MEDS: PANTOPRAZOLE 40 MG TABLET PO (21:55)
[2021-09-23] MEDS: QUEtiapine FUMARATE 25 MG TABLET PO (21:55)
[2021-09-23] MEDS: ACETAMINOPHEN 325 MG TABLET 650 MG PO (21:58)
[2021-09-23] MEDS: ALPRAZolam (*CRX) 0.25 MG TABLET PO (21:59)
[2021-09-24 05:38] VITALS: BP 115/57; PULSE 101; RESP 16; TEMP 36.7; O2SAT 93
[2021-09-24 05:41] LABS: Basophils Percent Auto 0.5 % (0.2-1.2); Eosinophils Percent Auto 0.5 % (0-4.4); Hematocrit 30.1 % (37.0-47.0); Hemoglobin 9.1 g/dL (12.0-15.0); Immature Granulocyte Absolute 0.02 K/mm3 (0.00-0.031); Immature Granulocyte Percent A 0.3 % (0-0.5); Lymphocytes Absolute Auto 0.69 K/mm3 (0.9-3.2); Lymphocytes Percent Auto 10.9 % (18.3-44.2); Mean Corpuscular HGB Conc 30.2 g/dl (32-36); Mean Corpuscular Hemoglobin 30.3 pg (26-34); Mean Corpuscular Volume 100.3 fl (80-100); Monocytes Absolute Auto 0.6 K/mm3 (0.1-0.6); Neutrophils Absolute Auto 4.9 K/mm3 (1.3-6.7); Neutrophils Percent Auto 77.8 % (45.5-73.1); Platelet Count Result 183 k/mm3 (150-375); Red Cell Distribution Width 17.2 % (11.5-14.5); White Blood Count 6.3 K/mm3 (4.5-10.0)
[2021-09-24 05:49] LABS: Lactic Acid Reflex 0.9 mmol/L (0.7-2.1)
[2021-09-24 05:51] LABS: Alanine Aminotransferase 38 U/L (4-35); Albumin Level 2.6 g/dL (3.5-5.1); Alkaline Phosphatase 112 U/L (38-126); Anion Gap 7 mmol/L (8-16); Aspartate Amino Transferase 31 U/L (14-36); Blood Urea Nitrogen 39 mg/dL (7-17); Calcium 7.9 mg/dL (8.4-10.2); Carbon Dioxide 22 mmol/L (22-30); Chloride 109 mmol/L (98-107); Estimated CRCL calculation 30 ml/min; Estimated Glomerular Filt Rate 48; Glucose 86 mg/dL (65-110); Lactate Dehydrogenase 700 U/L (313-618); Magnesium 2.7 mg/dL (1.6-2.3); Potassium 3.4 mmol/L (3.4-5.0); Sodium 138 mmol/L (137-145)
[2021-09-24] MEDS: LEVOTHYROXINE SODIUM 100 MCG TABLET PO (06:22)
[2021-09-24] MEDS: LEVOTHYROXINE SODIUM 75 MCG TABLET PO (06:22)
[2021-09-24 07:14] LABS: Free T4 Free Thyroxine Reflex 1.17 ng/dL (0.78-2.19)
[2021-09-24] MEDS: FERROUS SULFATE 324 MG TABLET PO (08:45)
[2021-09-24] MEDS: prednisoLONE ACETATE 1% OPHTH 5 ML 1 DROP EACH EYE (08:45)
[2021-09-24] MEDS: POTASSIUM CHLORIDE 10 MEQ TABLET.ER 40 MEQ PO (08:45)
[2021-09-24 08:46] LABS: Total Triiodothyronine (T3) 0.48 NG/ML (0.97-1.69)
[2021-09-24] MEDS: CHOLECALCIFEROL 1,000 UNITS TABLET 5000 UNITS PO (08:46)
[2021-09-24 08:47] VITALS: PULSE 101
[2021-09-24] MEDS: METOPROLOL SUCCINATE EXT REL 50 MG TABCR PO (08:47)
[2021-09-24] MEDS: hydrALAZINE 10 MG TABLET PO (08:47)
[2021-09-24] MEDS: CLOPIDOGREL BISULFATE 75 MG TABLET PO (08:47)
[2021-09-24] MEDS: SACUBITRIL/VALSARTAN 24-26 MG TABLET 1 TAB PO ×2 (08:47→16:29)
[2021-09-24] MEDS: ATORVASTATIN 40 MG TABLET PO (08:47)
[2021-09-24] MEDS: PANTOPRAZOLE 40 MG TABLET PO ×2 (08:47→19:31)
[2021-09-24] MEDS: FUROSEMIDE 20 MG TABLET PO (08:47)
[2021-09-24] MEDS: valACYclovir HCL 500 MG TABLET PO ×2 (08:47→16:29)
[2021-09-24 10:00] VITALS: BP 102/63; PULSE 82; RESP 18; TEMP 35.8; O2SAT 96
--- NOTE | 2021-09-24 10:54 | PM.IMPN ---
Progress Note: A&P Assessment and Plan (1) Acute hypotension: Code(s): I95.9 - Hypotension, unspecified Status: Acute Assessment and Plan: -Her blood pressure has improved. It was felt that the patient has sepsis due to pneumonia. -stable today 115/57 -continue IV abx (2) Hypoxia: Code(s): R09.02 - Hypoxemia Status: Acute Assessment and Plan: -The patient is currently on room air. She has a pulse ox of 99%. (3) Pneumonia: Qualifiers: Laterality: bilateral Lung location: lower lobe of lung Pneumonia type: due to unspecified organism Qualified Code(s): J18.9 - Pneumonia, unspecified organism Code(s): J18.9 - Pneumonia, unspecified organism Status: Acute Assessment and Plan: -As seen on CXR -Patient was started on cefepime due to her tachycardia and hypotension. -The patient has no leukocytosis or fever but does continue to be tachycardic. (4) Hypokalemia: Code(s): E87.6 - Hypokalemia Status: Acute Assessment and Plan: Replace as necessary. (5) Pericardial effusion: Code(s): I31.3 - Pericardial effusion (noninflammatory) Status: Acute Assessment and Plan: Chronic and appears to be unchanged. (6) CHF (congestive heart failure): Code(s): I50.9 - Heart failure, unspecified Status: Acute Assessment and Plan: -The patient is on metoprolol and Entresto. If blood pressure sustains we can continue this. -Mild pulmonary edema on CXR -Check BNP -Continue Lasix 20 mg QD (7) Transaminitis: Code(s): R74.01 - Elevation of levels of liver transaminase levels Status: Acute Assessment and Plan: Continue to monitor. Appear to be improving. The patient has had a MRCP in the past. On 09/13/2021 she had MRCP which was read following 1. Mild dilation of the common bile duct likely related to prior cholecystectomy and sphincterotomy. No intrapedicular ductal dilation or obstructing stone or mass. 2. Anasarca with small left and small to moderate right pleural effusions, large pericardial effusion and extensive soft tissue edema throughout the mesentery, retroperitoneum and body wall. 3. Moderate cardiomegaly. (8) Dementia: Code(s): F03.90 - Unspecified dementia without behavioral disturbance Status: Acute Assessment and Plan: Continue with home medications. Her last admission it was explained to Librado that she will continue to decline and also her daughter the power business attorney spoke with the provider at the time. They chose not to do hospice at this time. (9) Hypothyroidism: Code(s): E03.9 - Hypothyroidism, unspecified Status: Acute Assessment and Plan: -Continue with home medications. -TSH elevated 13.2 but T4 WNL 1.17 (10) Chronic kidney disease, stage 3b: Code(s): N18.32 - Chronic kidney disease, stage 3b Status: Acute Assessment and Plan: Appears to be at her baseline. (11) History of atrial fibrillation without current medication: Code(s): Z86.79 - Personal history of other diseases of the circulatory system Status: Acute Assessment and Plan: -Appears to be an normal sinus rhythm. If her blood pressure sustains we may continue with her metoprolol. -No longer on long-term anticoagulation due to history of falls. (12) CAD (coronary artery disease): Code(s): I25.10 - Atherosclerotic heart disease of [place] coronary artery without angina pectoris Status: Acute Assessment and Plan: Continue with home medications. (13) Anemia: Qualifiers: Anemia type: unspecified type Qualified Code(s): D64.9 - Anemia, unspecified Code(s): D64.9 - Anemia, unspecified Status: Chronic Assessment and Plan: She Is at her baseline Subjective Date/time seen: 09/24/21 10:54 Interval histor
[2021-09-24 14:00] VITALS: BP 108/68; PULSE 84; RESP 18; TEMP 36.2; O2SAT 100
[2021-09-24 16:45] LABS: SARS-CoV-2 RNA PCR Negative (Negative)
[2021-09-24 18:00] VITALS: BP 105/70; PULSE 91; RESP 18; TEMP 35.7; O2SAT 100
[2021-09-24] MEDS: ALPRAZolam (*CRX) 0.25 MG TABLET PO (19:29)
[2021-09-24] MEDS: ACETAMINOPHEN 325 MG TABLET 650 MG PO (19:31)
[2021-09-24] MEDS: QUEtiapine FUMARATE 25 MG TABLET PO (19:33)
[2021-09-24 20:00] VITALS: BP 136/100; PULSE 101; RESP 18; TEMP 35.8; O2SAT 100
[2021-09-25] VITALS (9 sets, daily range): BP systolic 90–145; BP diastolic 52–89; PULSE 77–104; RESP 14–18; TEMP 36–37.1; O2SAT 91–100
[2021-09-25] MEDS: ACETAMINOPHEN 325 MG TABLET 650 MG PO ×2 (04:11→08:20)
[2021-09-25] MEDS: ALPRAZolam (*CRX) 0.25 MG TABLET PO ×2 (04:11→21:34)
[2021-09-25] MEDS: LEVOTHYROXINE SODIUM 75 MCG TABLET PO (04:12)
[2021-09-25] MEDS: LEVOTHYROXINE SODIUM 100 MCG TABLET PO (04:12)
[2021-09-25 06:59] LABS: Basophils Percent Auto 0.4 % (0.2-1.2); Eosinophils Absolute Auto 0.1 K/mm3 (0-0.3); Hematocrit 34.5 % (37.0-47.0); Hemoglobin 9.7 g/dL (12.0-15.0); Immature Granulocyte Absolute 0.03 K/mm3 (0.00-0.031); Immature Granulocyte Percent A 0.4 % (0-0.5); Lymphocytes Absolute Auto 0.91 K/mm3 (0.9-3.2); Lymphocytes Percent Auto 12.4 % (18.3-44.2); Mean Corpuscular HGB Conc 28.1 g/dl (32-36); Mean Corpuscular Hemoglobin 29.4 pg (26-34); Mean Corpuscular Volume 104.5 fl (80-100); Mean Platelet Volume 12.5 fl (7.4-10.4); Monocytes Absolute Auto 0.6 K/mm3 (0.1-0.6); Monocytes Percent Auto 8.2 % (2.6-8.5); Neutrophils Absolute Auto 5.7 K/mm3 (1.3-6.7); Neutrophils Percent Auto 77.6 % (45.5-73.1); Platelet Count Result 204 k/mm3 (150-375); Red Cell Distribution Width 17.2 % (11.5-14.5); White Blood Count 7.3 K/mm3 (4.5-10.0)
[2021-09-25 07:08] LABS: Alanine Aminotransferase 33 U/L (4-35); Albumin Level 2.7 g/dL (3.5-5.1); Alkaline Phosphatase 123 U/L (38-126); Anion Gap 10 mmol/L (8-16); Aspartate Amino Transferase 34 U/L (14-36); Bilirubin,Total 0.7 mg/dL (0.2-1.3); Blood Urea Nitrogen 45 mg/dL (7-17); Calcium 7.9 mg/dL (8.4-10.2); Carbon Dioxide 19 mmol/L (22-30); Chloride 109 mmol/L (98-107); Estimated CRCL calculation 24 ml/min; Estimated Glomerular Filt Rate 36; Glucose 99 mg/dL (65-110); Potassium 4.5 mmol/L (3.4-5.0); Sodium 138 mmol/L (137-145)
[2021-09-25 07:15] LABS: NT Pro B Type Natriuretic Pept 33900 pg/mL (5-100)
--- NOTE | 2021-09-25 09:09 | PM.IMPN ---
Progress Note: A&P Assessment and Plan (1) Acute hypotension: Code(s): I95.9 - Hypotension, unspecified Status: Acute Assessment and Plan: -Her blood pressure has improved. It was felt that the patient has sepsis due to pneumonia. -stable today 145/89 -continue IV abx (2) Hypoxia: Code(s): R09.02 - Hypoxemia Status: Acute Assessment and Plan: -The patient is currently on room air. She has a pulse ox of 91%. -BNP today 29104, will diurese her with close monitoring of her blood pressure (3) CHF (congestive heart failure): Code(s): I50.9 - Heart failure, unspecified Status: Acute Assessment and Plan: -echo from 07/28/21 w/ EF of 25-30% -The patient is on metoprolol and Entresto. BP stable at this time so we will continue this. -Mild pulmonary edema on CXR -BNP today 08280 -Was on Lasix 20 mg PO QD, will switch to 20 mg IV BID -Monitor blood pressure closely (4) Pneumonia: Qualifiers: Laterality: bilateral Lung location: lower lobe of lung Pneumonia type: due to unspecified organism Qualified Code(s): J18.9 - Pneumonia, unspecified organism Code(s): J18.9 - Pneumonia, unspecified organism Status: Acute Assessment and Plan: -As seen on CXR -Patient was started on cefepime due to her tachycardia and hypotension. -The patient has no leukocytosis or fever but does continue to be tachycardic at times (5) Hypokalemia: Code(s): E87.6 - Hypokalemia Status: Acute Assessment and Plan: Replace as necessary. Resolved. (6) Pericardial effusion: Code(s): I31.3 - Pericardial effusion (noninflammatory) Status: Acute Assessment and Plan: Chronic and appears to be unchanged. (7) Transaminitis: Code(s): R74.01 - Elevation of levels of liver transaminase levels Status: Acute Assessment and Plan: Continue to monitor. Appear to be improving. The patient has had a MRCP in the past. On 09/13/2021 she had MRCP which was read following 1. Mild dilation of the common bile duct likely related to prior cholecystectomy and sphincterotomy. No intrapedicular ductal dilation or obstructing stone or mass. 2. Anasarca with small left and small to moderate right pleural effusions, large pericardial effusion and extensive soft tissue edema throughout the mesentery, retroperitoneum and body wall. 3. Moderate cardiomegaly. 09/25/21 Resolved: AST 34, ALT 33, alk phos 123 (8) Dementia: Code(s): F03.90 - Unspecified dementia without behavioral disturbance Status: Acute Assessment and Plan: Continue with home medications. Her last admission it was explained to Librado that she will continue to decline and also her daughter the power attorney at law spoke with the provider at the time. They chose not to do hospice at that time. (9) Hypothyroidism: Code(s): E03.9 - Hypothyroidism, unspecified Status: Acute Assessment and Plan: -Continue with home medications. -TSH elevated 13.2 but T4 WNL 1.17 (10) Chronic kidney disease, stage 3b: Code(s): N18.32 - Chronic kidney disease, stage 3b Status: Acute Assessment and Plan: Appears to be at her baseline. (11) History of atrial fibrillation without current medication: Code(s): Z86.79 - Personal history of other diseases of the circulatory system Status: Acute Assessment and Plan: -Appears to be an normal sinus rhythm. If her blood pressure sustains we may continue with her metoprolol. -No longer on long-term anticoagulation due to history of falls. (12) CAD (coronary artery disease): Code(s): I25.10 - Atherosclerotic heart disease of [place] coronary artery without angina pectoris Status: Acute Assessment and Plan: Continue with home medications. (13) Anemia: Qualifiers: Anemia typ
[2021-09-25] MEDS: ATORVASTATIN 40 MG TABLET PO (10:15)
[2021-09-25] MEDS: FERROUS SULFATE 324 MG TABLET PO (10:15)
[2021-09-25] MEDS: PANTOPRAZOLE 40 MG TABLET PO ×2 (10:15→21:34)
[2021-09-25] MEDS: SACUBITRIL/VALSARTAN 24-26 MG TABLET 1 TAB PO ×2 (10:15→17:51)
[2021-09-25] MEDS: POTASSIUM CHLORIDE 10 MEQ TABLET.ER 40 MEQ PO (10:16)
[2021-09-25] MEDS: CHOLECALCIFEROL 1,000 UNITS TABLET 5000 UNITS PO (10:16)
[2021-09-25] MEDS: CLOPIDOGREL BISULFATE 75 MG TABLET PO (10:16)
[2021-09-25] MEDS: prednisoLONE ACETATE 1% OPHTH 5 ML 1 DROP EACH EYE (10:16)
[2021-09-25] MEDS: valACYclovir HCL 500 MG TABLET PO ×2 (10:16→17:51)
[2021-09-25] MEDS: FUROSEMIDE INJ 40 MG/4 ML VIAL 20 MG IV PUSH (14:58)
[2021-09-25] MEDS: QUEtiapine FUMARATE 25 MG TABLET PO (21:35)
[2021-09-26] VITALS (8 sets, daily range): BP systolic 80–117; BP diastolic 42–78; PULSE 69–116; RESP 14–20; TEMP 36.3–36.5; O2SAT 80–98
[2021-09-26 05:16] LABS: Basophils Absolute Auto 0.1 K/mm3 (0.0-0.1); Basophils Percent Auto 0.7 % (0.2-1.2); Eosinophils Absolute Auto 0.2 K/mm3 (0-0.3); Eosinophils Percent Auto 2.2 % (0-4.4); Hematocrit 35.5 % (37.0-47.0); Hemoglobin 10.2 g/dL (12.0-15.0); Immature Granulocyte Absolute 0.03 K/mm3 (0.00-0.031); Immature Granulocyte Percent A 0.4 % (0-0.5); Lymphocytes Absolute Auto 1.17 K/mm3 (0.9-3.2); Lymphocytes Percent Auto 15.5 % (18.3-44.2); Mean Corpuscular HGB Conc 28.7 g/dl (32-36); Mean Corpuscular Hemoglobin 30.3 pg (26-34); Mean Corpuscular Volume 105.3 fl (80-100); Monocytes Absolute Auto 0.6 K/mm3 (0.1-0.6); Monocytes Percent Auto 7.8 % (2.6-8.5); Neutrophils Absolute Auto 5.6 K/mm3 (1.3-6.7); Neutrophils Percent Auto 73.4 % (45.5-73.1); Platelet Count Result 202 k/mm3 (150-375); Red Blood Count 3.37 M/mm3 (4.2-5.4); Red Cell Distribution Width 17.2 % (11.5-14.5); White Blood Count 7.6 K/mm3 (4.5-10.0)
[2021-09-26] MEDS: LEVOTHYROXINE SODIUM 100 MCG TABLET PO (05:36)
[2021-09-26] MEDS: LEVOTHYROXINE SODIUM 75 MCG TABLET PO (05:36)
[2021-09-26 05:37] LABS: Alanine Aminotransferase 31 U/L (4-35); Albumin Level 2.9 g/dL (3.5-5.1); Alkaline Phosphatase 109 U/L (38-126); Anion Gap 9 mmol/L (8-16); Aspartate Amino Transferase 39 U/L (14-36); Bilirubin,Total 0.7 mg/dL (0.2-1.3); Blood Urea Nitrogen 44 mg/dL (7-17); Calcium 7.8 mg/dL (8.4-10.2); Carbon Dioxide 16 mmol/L (22-30); Chloride 108 mmol/L (98-107); Estimated CRCL calculation 22 ml/min; Estimated Glomerular Filt Rate 33; Glucose 78 mg/dL (65-110); Magnesium 2.7 mg/dL (1.6-2.3); Sodium 133 mmol/L (137-145)
[2021-09-26 08:04] LABS: Ovalocytes 1+ (NORMAL); Platelet Estimate Adequate (Adequate); Poikilocytosis 2+ (NORMAL)
[2021-09-26 08:05] LABS: Acanthocytes 2+ (NORMAL); Burr Cells 1+ (NORMAL)
[2021-09-26] MEDS: POTASSIUM CHLORIDE 10 MEQ TABLET.ER 40 MEQ PO (08:45)
[2021-09-26] MEDS: valACYclovir HCL 500 MG TABLET PO ×2 (08:45→16:22)
[2021-09-26] MEDS: ATORVASTATIN 40 MG TABLET PO (08:45)
[2021-09-26] MEDS: FERROUS SULFATE 324 MG TABLET PO (08:45)
[2021-09-26] MEDS: SACUBITRIL/VALSARTAN 24-26 MG TABLET 1 TAB PO ×2 (08:45→16:22)
[2021-09-26] MEDS: CHOLECALCIFEROL 1,000 UNITS TABLET 5000 UNITS PO (08:45)
[2021-09-26] MEDS: CLOPIDOGREL BISULFATE 75 MG TABLET PO (08:46)
[2021-09-26] MEDS: PANTOPRAZOLE 40 MG TABLET PO ×2 (08:46→19:55)
[2021-09-26] MEDS: prednisoLONE ACETATE 1% OPHTH 5 ML 1 DROP EACH EYE (08:46)
[2021-09-26] MEDS: METOPROLOL SUCCINATE EXT REL 50 MG TABCR PO (08:46)
[2021-09-26] MEDS: hydrALAZINE 10 MG TABLET PO (08:46)
[2021-09-26] MEDS: FUROSEMIDE INJ 40 MG/4 ML VIAL 20 MG IV PUSH (08:46)
--- NOTE | 2021-09-26 12:03 | PM.IMPN ---
Progress Note: A&P Assessment and Plan (1) Acute hypotension: Code(s): I95.9 - Hypotension, unspecified Status: Acute Assessment and Plan: -Her blood pressure has improved. It was felt that the patient has sepsis due to pneumonia. -stable today 117/68 -continue IV abx (2) Hypoxia: Code(s): R09.02 - Hypoxemia Status: Acute Assessment and Plan: -The patient is currently on room air. She has a pulse ox of 98%. -BNP 46108, will diurese her with close monitoring of her blood pressure (3) CHF (congestive heart failure): Code(s): I50.9 - Heart failure, unspecified Status: Acute Assessment and Plan: -echo from 07/28/21 w/ EF of 25-30% -The patient is on metoprolol and Entresto. BP stable at this time so we will continue this. -Mild pulmonary edema on CXR -BNP today 74043 -Was on Lasix 20 mg PO QD, switched to 20 mg IV BID -Monitor blood pressure closely (4) Pneumonia: Qualifiers: Laterality: bilateral Lung location: lower lobe of lung Pneumonia type: due to unspecified organism Qualified Code(s): J18.9 - Pneumonia, unspecified organism Code(s): J18.9 - Pneumonia, unspecified organism Status: Acute Assessment and Plan: -As seen on CXR -Patient was started on cefepime due to her tachycardia and hypotension. -The patient has no leukocytosis or fever but does continue to be tachycardic at times (5) Hypokalemia: Code(s): E87.6 - Hypokalemia Status: Acute Assessment and Plan: Replace as necessary. Resolved. (6) Pericardial effusion: Code(s): I31.3 - Pericardial effusion (noninflammatory) Status: Acute Assessment and Plan: Chronic and appears to be unchanged. (7) Transaminitis: Code(s): R74.01 - Elevation of levels of liver transaminase levels Status: Acute Assessment and Plan: Continue to monitor. Appear to be improving. The patient has had a MRCP in the past. On 09/13/2021 she had MRCP which was read following 1. Mild dilation of the common bile duct likely related to prior cholecystectomy and sphincterotomy. No intrapedicular ductal dilation or obstructing stone or mass. 2. Anasarca with small left and small to moderate right pleural effusions, large pericardial effusion and extensive soft tissue edema throughout the mesentery, retroperitoneum and body wall. 3. Moderate cardiomegaly. 09/25/21 Resolved: AST 34, ALT 33, alk phos 123 (8) Dementia: Code(s): F03.90 - Unspecified dementia without behavioral disturbance Status: Acute Assessment and Plan: Continue with home medications. Her last admission it was explained to Librado that she will continue to decline and also her daughter the power employee benefits attorney spoke with the provider at the time. They chose not to do hospice at that time. (9) Hypothyroidism: Code(s): E03.9 - Hypothyroidism, unspecified Status: Acute Assessment and Plan: -Continue with home medications. -TSH elevated 13.2 but T4 WNL 1.17 (10) Chronic kidney disease, stage 3b: Code(s): N18.32 - Chronic kidney disease, stage 3b Status: Acute Assessment and Plan: Appears to be at her baseline. (11) History of atrial fibrillation without current medication: Code(s): Z86.79 - Personal history of other diseases of the circulatory system Status: Acute Assessment and Plan: -Appears to be an normal sinus rhythm. If her blood pressure sustains we may continue with her metoprolol. -No longer on long-term anticoagulation due to history of falls. (12) CAD (coronary artery disease): Code(s): I25.10 - Atherosclerotic heart disease of [place] coronary artery without angina pectoris Status: Acute Assessment and Plan: Continue with home medications. (13) Anemia: Qualifiers: Anemia type: unspec
[2021-09-26] MEDS: QUEtiapine FUMARATE 25 MG TABLET PO (19:55)
[2021-09-27] VITALS (12 sets, daily range): BP systolic 100–122; BP diastolic 60–94; PULSE 75–151; RESP 14–20; TEMP 36.2–36.9; O2SAT 91–98
[2021-09-27 05:22] LABS: Basophils Percent Auto 0.5 % (0.2-1.2); Eosinophils Absolute Auto 0.1 K/mm3 (0-0.3); Eosinophils Percent Auto 0.9 % (0-4.4); Hematocrit 34.9 % (37.0-47.0); Hemoglobin 10.6 g/dL (12.0-15.0); Immature Granulocyte Absolute 0.04 K/mm3 (0.00-0.031); Immature Granulocyte Percent A 0.5 % (0-0.5); Lymphocytes Absolute Auto 1.06 K/mm3 (0.9-3.2); Lymphocytes Percent Auto 13.3 % (18.3-44.2); Mean Corpuscular HGB Conc 30.4 g/dl (32-36); Mean Corpuscular Hemoglobin 30.5 pg (26-34); Mean Corpuscular Volume 100.3 fl (80-100); Mean Platelet Volume 12.1 fl (7.4-10.4); Monocytes Absolute Auto 0.6 K/mm3 (0.1-0.6); Monocytes Percent Auto 7.6 % (2.6-8.5); Neutrophils Absolute Auto 6.2 K/mm3 (1.3-6.7); Neutrophils Percent Auto 77.2 % (45.5-73.1); Platelet Count Result 244 k/mm3 (150-375); Red Blood Count 3.48 M/mm3 (4.2-5.4); Red Cell Distribution Width 17.1 % (11.5-14.5)
[2021-09-27 05:38] LABS: Anion Gap 10 mmol/L (8-16); Blood Urea Nitrogen 47 mg/dL (7-17); Calcium 8.2 mg/dL (8.4-10.2); Carbon Dioxide 19 mmol/L (22-30); Chloride 105 mmol/L (98-107); Estimated CRCL calculation 20 ml/min; Estimated Glomerular Filt Rate 29; Glucose 101 mg/dL (65-110); Sodium 134 mmol/L (137-145)
[2021-09-27] MEDS: LEVOTHYROXINE SODIUM 75 MCG TABLET PO (05:59)
[2021-09-27] MEDS: ACETAMINOPHEN 325 MG TABLET 650 MG PO (05:59)
[2021-09-27] MEDS: LEVOTHYROXINE SODIUM 100 MCG TABLET PO (05:59)
[2021-09-27] MEDS: CHOLECALCIFEROL 1,000 UNITS TABLET 5000 UNITS PO (10:27)
[2021-09-27] MEDS: FERROUS SULFATE 324 MG TABLET PO (10:27)
[2021-09-27] MEDS: POTASSIUM CHLORIDE 10 MEQ TABLET.ER 40 MEQ PO (10:27)
[2021-09-27] MEDS: ATORVASTATIN 40 MG TABLET PO (10:27)
[2021-09-27] MEDS: CLOPIDOGREL BISULFATE 75 MG TABLET PO (10:27)
[2021-09-27] MEDS: PANTOPRAZOLE 40 MG TABLET PO ×2 (10:27→20:04)
[2021-09-27] MEDS: valACYclovir HCL 500 MG TABLET PO ×2 (10:27→16:51)
[2021-09-27] MEDS: SACUBITRIL/VALSARTAN 24-26 MG TABLET 1 TAB PO ×2 (10:27→16:51)
[2021-09-27] MEDS: METOPROLOL SUCCINATE EXT REL 50 MG TABCR PO (10:27)
[2021-09-27] MEDS: prednisoLONE ACETATE 1% OPHTH 5 ML 1 DROP EACH EYE (10:28)
[2021-09-27 11:05] LABS: EDCOVIDSCREEN Negative (Negative)
--- NOTE | 2021-09-27 11:31 | PCOTNOTE ---
On 09/27/21, the student, Enriqueta Reyez, provided care and completed [facility] documentation on this patient. I have reviewed the student's documentation and agree with the findings.
--- NOTE | 2021-09-27 15:01 | PM.IMPN ---
Progress Note: A&P Assessment and Plan (1) Pneumonia: Qualifiers: Laterality: bilateral Lung location: lower lobe of lung Pneumonia type: due to unspecified organism Qualified Code(s): J18.9 - Pneumonia, unspecified organism Code(s): J18.9 - Pneumonia, unspecified organism Status: Acute Assessment and Plan: Dhara Harry is an 81 year old female who is known to me from prior hospitalizations with a history of CHF, CKD, chronic anemia, paroxysmal atrial fibrillation, pericardial effusion, hypertension, hypothyroidism, and several other medical problems who presented to the emergency department on 09/23/2021 due to increased SOB. Per triage note the patient was found to be hypotensive, tachycardic, and hypoxic. Our initial vitals showed stable blood pressure 118/76, heart rate 96 beats per minute, normal respirations, afebrile, 96% on room air. Initial labs showed normal white blood cell count, normocytic anemia with a hemoglobin of 10 which is stable from prior labs, elevated neutrophils at 78%, normal creatinine 1.1, BUN 43, normal lactic acid. Elevation of her LFTs mildly. Urinalysis was normal. Chest x-ray showed airspace opacity lower lung zones, consistent with atelectasis versus pneumonia. Mild pulmonary edema. Small pleural effusions are stable. Patient was admitted into the hospital for further workup and evaluation for pneumonia and started on IV Rocephin and azithromycin as well as mild CHF exacerbation and started on IV Lasix. Patient is currently on day 5 of IV Rocephin and azithromycin for her pneumonia She is currently 91% on room air, without any shortness of breath or cough. I stopped her IV Lasix given the increase in her creatinine from 1.1-1.7 since her admission. Concerns at this time is tachycardia, not be on any Lovenox for DVT prophylaxis since admission Will start SQ Lovenox 40 mg at this time and recheck her labs and heart rate on telemetry in the morning If her heart rate normalizes then will consider discharge. If her heart rate is still tachycardic and her creatinine is improved I will consider a CTA of her chest to rule out PE. Repeat chest x-ray today showed stable pneumonia and pleural effusion. No more pulmonary edema. Continue monitoring. (2) Tachycardia: Code(s): R00.0 - Tachycardia, unspecified Status: Acute Assessment and Plan: During the patient's admission she does have intermittent mild tachycardia at times. Over the last 24 hours she has had sustained tachycardia highest recorded 151 beats per minute, and now she is 107 beats per minute on telemetry. Not complain of any shortness of breath or chest pain at this time Will continue her metoprolol without any adjustments Will continue monitor on tele overnight Concern for possible PE since she has not been on any medicines for DVT prophylaxis Will start subQ Lovenox now Continue monitoring. (3) Elevated serum creatinine: Code(s): R79.89 - Other specified abnormal findings of blood chemistry Status: Acute Assessment and Plan: Patient's creatinine has been elevating since arrival from 1.1-1.7 today. Most likely due to some mild dehydration from IV Lasix. I discontinue IV Lasix today. Chest x-ray showed no more pulmonary edema. Will recheck renal function in the morning. (4) CHF (congestive heart failure): Code(s): I50.9 - Heart failure, unspecified Status: Acute Assessment and Plan: -Echo from 07/28/21 w/ EF of 25-30% -The patient is on metoprolol and Entresto. -BP stable at this time so we will continue this. -Mild pulmonary edema on CXR -patient's creatinine is going up, chest x-ray shows no more pulmonary edema. -09/27-discontinued IV Lasix. Will recheck her creatinine electrolytes in the morning. I believe she is euvolemic at this time. -Monitor blood pressure closely (5) Hypokalemia: Code(s): E87.6 - Hypokalemia
[2021-09-27] MEDS: ALPRAZolam (*CRX) 0.25 MG TABLET PO (18:31)
[2021-09-27] MEDS: QUEtiapine FUMARATE 25 MG TABLET PO (20:04)
[2021-09-28] VITALS (11 sets, daily range): BP systolic 114–120; BP diastolic 76–84; PULSE 73–117; RESP 14–18; TEMP 36.1–36.9; O2SAT 92–100
[2021-09-28 05:47] LABS: Basophils Percent Auto 0.3 % (0.2-1.2); Eosinophils Percent Auto 0.6 % (0-4.4); Hematocrit 32.1 % (37.0-47.0); Hemoglobin 9.8 g/dL (12.0-15.0); Immature Granulocyte Absolute 0.04 K/mm3 (0.00-0.031); Immature Granulocyte Percent A 0.6 % (0-0.5); Lymphocytes Percent Auto 11.4 % (18.3-44.2); Mean Corpuscular HGB Conc 30.5 g/dl (32-36); Mean Corpuscular Hemoglobin 29.5 pg (26-34); Mean Corpuscular Volume 96.7 fl (80-100); Mean Platelet Volume 11.9 fl (7.4-10.4); Monocytes Absolute Auto 0.5 K/mm3 (0.1-0.6); Monocytes Percent Auto 7.4 % (2.6-8.5); Neutrophils Absolute Auto 5.6 K/mm3 (1.3-6.7); Neutrophils Percent Auto 79.7 % (45.5-73.1); Platelet Count Result 269 k/mm3 (150-375); Red Blood Count 3.32 M/mm3 (4.2-5.4); Red Cell Distribution Width 16.8 % (11.5-14.5)
[2021-09-28 05:53] LABS: Anion Gap 10 mmol/L (8-16); Blood Urea Nitrogen 49 mg/dL (7-17); Calcium 8.4 mg/dL (8.4-10.2); Carbon Dioxide 18 mmol/L (22-30); Chloride 107 mmol/L (98-107); Estimated CRCL calculation 18 ml/min; Estimated Glomerular Filt Rate 25; Glucose 74 mg/dL (65-110); Potassium 5.8 mmol/L (3.4-5.0); Sodium 135 mmol/L (137-145)
[2021-09-28] MEDS: LEVOTHYROXINE SODIUM 75 MCG TABLET PO (06:31)
[2021-09-28] MEDS: LEVOTHYROXINE SODIUM 100 MCG TABLET PO (06:31)
[2021-09-28] MEDS: SODIUM POLYSTYRENE SULFONONATE 15 GM/60 ML BTL PO (07:50)
[2021-09-28] MEDS: CLOPIDOGREL BISULFATE 75 MG TABLET PO (07:51)
[2021-09-28] MEDS: PANTOPRAZOLE 40 MG TABLET PO ×2 (07:51→20:24)
[2021-09-28] MEDS: CHOLECALCIFEROL 1,000 UNITS TABLET 5000 UNITS PO (07:51)
[2021-09-28] MEDS: METOPROLOL SUCCINATE EXT REL 50 MG TABCR PO (07:51)
[2021-09-28] MEDS: ATORVASTATIN 40 MG TABLET PO (07:52)
[2021-09-28] MEDS: FERROUS SULFATE 324 MG TABLET PO (07:52)
[2021-09-28] MEDS: SACUBITRIL/VALSARTAN 24-26 MG TABLET 1 TAB PO ×2 (07:52→17:46)
[2021-09-28] MEDS: valACYclovir HCL 500 MG TABLET PO ×2 (07:52→17:46)
[2021-09-28] MEDS: prednisoLONE ACETATE 1% OPHTH 5 ML 1 DROP EACH EYE (07:52)
[2021-09-28 11:47] LABS: Anion Gap 10 mmol/L (8-16); Blood Urea Nitrogen 46 mg/dL (7-17); Calcium 8.9 mg/dL (8.4-10.2); Carbon Dioxide 19 mmol/L (22-30); Chloride 105 mmol/L (98-107); Estimated CRCL calculation 19 ml/min; Estimated Glomerular Filt Rate 27; Glucose 87 mg/dL (65-110); Potassium 5.5 mmol/L (3.4-5.0); Sodium 134 mmol/L (137-145)
--- NOTE | 2021-09-28 12:37 | PM.IMPN ---
Progress Note: A&P Assessment and Plan (1) Pneumonia: Qualifiers: Laterality: bilateral Lung location: lower lobe of lung Pneumonia type: due to unspecified organism Qualified Code(s): J18.9 - Pneumonia, unspecified organism Code(s): J18.9 - Pneumonia, unspecified organism Status: Acute Assessment and Plan: Dhara Harry is an 81 year old female who is known to me from prior hospitalizations with a history of CHF, CKD, chronic anemia, paroxysmal atrial fibrillation, pericardial effusion, hypertension, hypothyroidism, and several other medical problems who presented to the emergency department on 09/23/2021 due to increased SOB. Per triage note the patient was found to be hypotensive, tachycardic, and hypoxic. Our initial vitals showed stable blood pressure 118/76, heart rate 96 beats per minute, normal respirations, afebrile, 96% on room air. Initial labs showed normal white blood cell count, normocytic anemia with a hemoglobin of 10 which is stable from prior labs, elevated neutrophils at 78%, normal creatinine 1.1, BUN 43, normal lactic acid. Elevation of her LFTs mildly. Urinalysis was normal. Chest x-ray showed airspace opacity lower lung zones, consistent with atelectasis versus pneumonia. Mild pulmonary edema. Small pleural effusions are stable. Patient was admitted into the hospital for further workup and evaluation for pneumonia and started on IV Rocephin and azithromycin as well as mild CHF exacerbation and started on IV Lasix. Patient is currently on day #6 of IV Rocephin and discontinued azithromycin #5 (completed treatment) for her pneumonia She is currently 100% on room air, without any shortness of breath or cough. I stopped her IV Lasix given the increase in her creatinine from 1.1-1.7 since her admission. Tachycardia has improved today and only intermittent, otherwise rate controlled at 78 bpm now. Will start SQ Lovenox 40 mg at this time and continue monitoring Tele If her heart rate normalizes then will consider discharge. If her heart rate is still tachycardic and her creatinine is improved I will consider a CTA of her chest to rule out PE. Repeat chest x-ray today showed stable pneumonia and pleural effusion. No more pulmonary edema. Continue monitoring. (2) Tachycardia: Code(s): R00.0 - Tachycardia, unspecified Status: Acute Assessment and Plan: During the patient's admission she does have intermittent mild tachycardia at times. Over the last 24 hours she has had sustained tachycardia highest recorded 151 beats per minute, and now she is 107 beats per minute on telemetry. Not complain of any shortness of breath or chest pain at this time Will continue her metoprolol without any adjustments Tele better. Will continue monitoring No acute arrhythmia noted. Concern for possible PE since she has not been on any medicines for DVT prophylaxis Will start subQ Lovenox now Continue monitoring. (3) Elevated serum creatinine: Code(s): R79.89 - Other specified abnormal findings of blood chemistry Status: Acute Assessment and Plan: Patient's creatinine has been elevating since arrival from 1.1-1.7 today. Most likely due to some mild dehydration from IV Lasix Concerned Cr increased again to 1.9. Talked With attending provider and recommended giving 250 cc of normal saline to help with creatinine. Will recheck her BMP in the morning. Chest x-ray showed no more pulmonary edema. Will recheck renal function in the morning. (4) CHF (congestive heart failure): Code(s): I50.9 - Heart failure, unspecified Status: Acute Assessment and Plan: -Echo from 07/28/21 w/ EF of 25-30% -The patient is on metoprolol and Entresto. -BP stable at this time so we will continue this. -Mild pulmonary edema on CXR -patient's creatinine is going up, chest x-ray shows no more pulmonary edema. -09/27- Discontinued IV Lasix. -09-28- Cr i
[2021-09-28] MEDS: SODIUM CHLORIDE 0.9% IV 250 ML 100 ML IV CONT (12:51)
[2021-09-28] MEDS: ENOXAPARIN 30 MG/0.3 ML SYRINGE SUB-Q (17:46)
[2021-09-28] MEDS: ACETAMINOPHEN 325 MG TABLET 650 MG PO (20:23)
[2021-09-28] MEDS: QUEtiapine FUMARATE 25 MG TABLET PO (20:23)
[2021-09-28] MEDS: ALPRAZolam (*CRX) 0.25 MG TABLET PO (20:23)
[2021-09-29] VITALS: PULSE 82
[2021-09-29 03:35] VITALS: BP 109/64; PULSE 110; RESP 18; TEMP 36.4; O2SAT 96
[2021-09-29 04:00] VITALS: PULSE 94
[2021-09-29] MEDS: LEVOTHYROXINE SODIUM 100 MCG TABLET PO (05:48)
[2021-09-29] MEDS: LEVOTHYROXINE SODIUM 75 MCG TABLET PO (05:48)
[2021-09-29 06:34] LABS: Anion Gap 10 mmol/L (8-16); Blood Urea Nitrogen 43 mg/dL (7-17); Calcium 8.4 mg/dL (8.4-10.2); Carbon Dioxide 18 mmol/L (22-30); Chloride 108 mmol/L (98-107); Estimated CRCL calculation 21 ml/min; Estimated Glomerular Filt Rate 31; Glucose 83 mg/dL (65-110); Potassium 4.4 mmol/L (3.4-5.0); Sodium 136 mmol/L (137-145)
[2021-09-29 06:38] LABS: Hematocrit 32.4 % (37.0-47.0); Hemoglobin 9.8 g/dL (12.0-15.0); Mean Corpuscular HGB Conc 30.2 g/dl (32-36); Mean Corpuscular Hemoglobin 30.1 pg (26-34); Mean Corpuscular Volume 99.4 fl (80-100); Mean Platelet Volume 11.7 fl (7.4-10.4); Platelet Count Result 265 k/mm3 (150-375); Red Blood Count 3.26 M/mm3 (4.2-5.4); Red Cell Distribution Width 17.1 % (11.5-14.5)
--- NOTE | 2021-09-29 08:42 | PM.DS ---
DS: Admitting Diagnosis Discharge Date 09/29/21 Admitting Diagnosis SOB DS: Discharge Diagnosis Discharge Diagnosis (1) Pneumonia: Qualifiers: Laterality: bilateral Lung location: lower lobe of lung Pneumonia type: due to unspecified organism Qualified Code(s): J18.9 - Pneumonia, unspecified organism Code(s): J18.9 - Pneumonia, unspecified organism Status: Acute Assessment and Plan: Dhara Harry is an 81 year old female who is known to me from prior hospitalizations with a history of CHF, CKD, chronic anemia, paroxysmal atrial fibrillation, pericardial effusion, hypertension, hypothyroidism, and several other medical problems who presented to the emergency department on 09/23/2021 due to increased SOB. Per triage note the patient was found to be hypotensive, tachycardic, and hypoxic. Our initial vitals showed stable blood pressure 118/76, heart rate 96 beats per minute, normal respirations, afebrile, 96% on room air. Initial labs showed normal white blood cell count, normocytic anemia with a hemoglobin of 10 which is stable from prior labs, elevated neutrophils at 78%, normal creatinine 1.1, BUN 43, normal lactic acid. Elevation of her LFTs mildly. Urinalysis was normal. Chest x-ray showed airspace opacity lower lung zones, consistent with atelectasis versus pneumonia. Mild pulmonary edema. Small pleural effusions are stable. Patient was admitted into the hospital for further workup and evaluation for pneumonia and started on IV Rocephin and azithromycin as well as mild CHF exacerbation and started on IV Lasix. Patient is currently on day #6 of IV Rocephin and discontinued azithromycin #5 (completed treatment) for her pneumonia She is currently 97% on room air, without any shortness of breath or cough. I stopped her IV Lasix given the increase in her creatinine from 1.1-1.7 since her admission. Tachycardia has improved today and only intermittent, otherwise rate controlled at 79 bpm now. HR normalized. Repeat chest x-ray today showed stable pneumonia and pleural effusion. No more pulmonary edema. Stable at this time to be discharged to SNF with a few more days of PO Cefdinir to complete 7 days of treatment. Return to ER warnings given and follow up instructions given. Patient understands and agrees with the plan. All questions answered. (2) Tachycardia: Code(s): R00.0 - Tachycardia, unspecified Status: Acute Assessment and Plan: During the patient's admission she does have intermittent mild tachycardia at times. Over the last 24 hours she has had sustained tachycardia highest recorded 151 beats per minute, and now she is 107 beats per minute on telemetry. Not complain of any shortness of breath or chest pain at this time Will continue her metoprolol without any adjustments Tele better and rate controlled. No acute arrhythmia noted. (3) Elevated serum creatinine: Code(s): R79.89 - Other specified abnormal findings of blood chemistry Status: Acute Assessment and Plan: Patient's creatinine has been elevating since arrival from 1.1-1.7 today. Most likely due to some mild dehydration from IV Lasix Concerned Cr increased again to 1.9. Talked With attending provider and recommended giving 250 cc of normal saline to help with creatinine. Cr improved to 1.6 which is within her normal baseline (4) CHF (congestive heart failure): Code(s): I50.9 - Heart failure, unspecified Status: Acute Assessment and Plan: -Echo from 07/28/21 w/ EF of 25-30% -The patient is on metoprolol and Entresto. -BP stable at this time so we will continue this. -Mild pulmonary edema on CXR -patient's creatinine is going up, chest x-ray shows no more pulmonary edema. Euvolemic at this time. Continue home diuretics (5) Hypokalemia: Code(s): E87.6 - Hypokalemia Status: Acute Assessment and Plan: Replace as necmauricio
[2021-09-29] MEDS: CHOLECALCIFEROL 1,000 UNITS TABLET 5000 UNITS PO (10:01)
[2021-09-29] MEDS: valACYclovir HCL 500 MG TABLET PO (10:02)
[2021-09-29] MEDS: PANTOPRAZOLE 40 MG TABLET PO (10:02)
[2021-09-29] MEDS: ATORVASTATIN 40 MG TABLET PO (10:02)
[2021-09-29] MEDS: SACUBITRIL/VALSARTAN 24-26 MG TABLET 1 TAB PO (10:02)
[2021-09-29 10:03] VITALS: PULSE 94
[2021-09-29] MEDS: FUROSEMIDE 20 MG TABLET PO (10:03)
[2021-09-29] MEDS: METOPROLOL SUCCINATE EXT REL 50 MG TABCR PO (10:03)
[2021-09-29] MEDS: CLOPIDOGREL BISULFATE 75 MG TABLET PO (10:03)
[2021-09-29] MEDS: FERROUS SULFATE 324 MG TABLET PO (10:03)
[2021-09-29] MEDS: prednisoLONE ACETATE 1% OPHTH 5 ML 1 DROP EACH EYE (10:04)
[2021-09-29 10:19] LABS: EDCOVIDSCREEN Negative (Negative)
[2021-09-29 10:35] VITALS: BP 108/65; PULSE 87; RESP 12; TEMP 36.2; O2SAT 97
== END 2021-09-29 13:22 | DRG 194 ==
LOC: ANHED 14:06 → ANH2MED 17:26
PROVIDERS: Nurse Practitioner; Physician Assistant; Admitting Provider Internal Medicine; Emergency Provider Emergency Medicine; PCP Family Medicine; Visit Provider Physician Assistant
DX: J18.9 Pneumonia, unspecified organism (principal); I13.0 Hypertensive heart and chronic kidney disease with heart failure and stage 1 through stage 4 chronic kidney disease, or unspecified chronic kidney disease; I31.3 Pericardial effusion (noninflammatory); I50.22 Chronic systolic (congestive) heart failure; Z20.822 Contact with and (suspected) exposure to COVID-19; E03.9 Hypothyroidism, unspecified; D64.9 Anemia, unspecified; R74.01 Elevation of levels of liver transaminase levels; N18.32 Chronic kidney disease, stage 3b; I25.10 Atherosclerotic heart disease of native coronary artery without angina pectoris; F03.90 Unspecified dementia, unspecified severity, without behavioral disturbance, psychotic disturbance, mood disturbance, and anxiety; R09.02 Hypoxemia; F41.8 Other specified anxiety disorders; K21.9 Gastro-esophageal reflux disease without esophagitis; I48.0 Paroxysmal atrial fibrillation; R00.0 Tachycardia, unspecified; E87.5 Hyperkalemia; E78.5 Hyperlipidemia, unspecified; K58.9 Irritable bowel syndrome, unspecified; I25.5 Ischemic cardiomyopathy; G47.33 Obstructive sleep apnea (adult) (pediatric); E86.0 Dehydration; G25.81 Restless legs syndrome; G62.9 Polyneuropathy, unspecified; Z96.641 Presence of right artificial hip joint; Z96.653 Presence of artificial knee joint, bilateral; Z91.81 History of falling; Z90.49 Acquired absence of other specified parts of digestive tract; Z98.42 Cataract extraction status, left eye; Z98.41 Cataract extraction status, right eye
CPT/HCPCS: 36415; 51701; 71045; 71046; 80048; 80053; 81001; 82728; 83605; 83615; 83735; 83880; 84439; 84443; 84480; 85025; 85027; 87040; 87426; 93005; 93923; 97110; 97161; 97165; 97530; 97535; 99285; A9270; C9803; J0456; J0692; J0696; J1630; J1650; J1940; J7050; U0003; U0005

== ENCOUNTER 2021-10-02 12:40 | Emergency (ER) | payer MEDICARE, SELFPAY ==
--- NOTE | ~2021-10-02 | XR_ITS ---
XR foot RT min 3V DATE: 10/02/2021 13:08 INDICATION: Pain, swelling, bruising of anterior distal foot TECHNIQUE: 4 views. COMPARISON: None FINDINGS: There is soft tissue swelling of the ankle and foot. Diffuse osteopenia. No recent soft tissue swelling Diffuse osteopenia fracture or dislocation, periosteal reaction or bone destruction is detected. IMPRESSION: Reviewed, dictated and finalized at location A. [employer] IMPRESSION:
[2021-10-02 12:52] VITALS: BP 98/68; PULSE 77; RESP 18; TEMP 36.7; O2SAT 100
--- NOTE | 2021-10-02 12:58 | ED.LOWEXIN ---
HPI - Extremity Injury (Lower) General Chief Complaint: Extremity Injury, Lower Stated Complaint: SWELLING , ?PULSELESS FOOT Time Seen by Provider: 10/02/21 12:52 Source: patient and EMS Mode of arrival: EMS Limitations: dementia History of Present Illness HPI Narrative: Patient is an 81-year-old female [facility] due to right foot swelling and [facility] staff were not able to palpate a pulse so her doctor advised to send her to the emergency room. Unknown if patient had injury to the foot but there is swelling and bruising on the right foot. Patient is a very poor historian due to her dementia history. Related Data Home Medications Medication Instructions Recorded Confirmed furosemide 20 mg tablet 20 mg PO QAM 12/15/20 09/23/21 nitroglycerin 0.4 mg sublingual 0.4 mg SUBLINGUAL PRN PRN 12/15/20 09/23/21 tablet Entresto 1 tablet PO BID 02/10/21 09/23/21 oxybutynin chloride 10 mg 10 mg PO DAILY 04/18/21 09/23/21 tablet,extended release 24 hr cholecalciferol (vitamin D3) 5,000 unit PO DAILY 04/29/21 09/23/21 hydralazine 10 mg PO DAILY 06/09/21 09/23/21 metoprolol succinate [Toprol XL] 50 mg PO DAILY 06/09/21 09/23/21 prednisolone acetate [Pred Forte] 1 drp EACH EYE DAILY 06/09/21 09/23/21 clopidogrel [Plavix] 75 mg PO DAILY 08/08/21 09/23/21 pantoprazole 40 mg PO Q12H 08/08/21 09/23/21 valacyclovir 500 mg PO BID 08/08/21 09/23/21 Allergies Allergy/AdvReac Type Severity Reaction Status Date / Time Penicillins Allergy Unknown Rash Verified 09/10/21 15:47 Review of Systems Review of Systems: All systems reviewed & are unremarkable except as noted in HPI and below ROS unobtainable: Yes other (Dementia) Constitutional: Constitutional: Reports as per HPI [facility] Past Medical History Medical History Anxiety and depression Chronic anemia Chronic kidney disease, stage 3b Creatinine ranges between 1.5 and 2.00 Congestive heart failure Echocardiogram on 07/28/2021 showed normal left ventricular size with mild concentric left ventricular hypertrophy and severe global hypokinesis with no segmental wall abnormalities and a calculated ejection fraction of 38% however visual estimate was in the 25 to 30% range as well as diastolic dysfunction grade 2 with severely enlarged left atrial chamber and a large pericardial effusion, mostly posterior, with right atrial and ventricular collapse consistent with cardiac tamponade physiology. Coronary artery disease With multivessel surgical revascularization with PCI at [place] October 2017. Cardiac catheterization 10/17/2018-mild preserved intra-stent luminal diameter Dementia Depression with anxiety Detached retina Right-sided, x2. Frequent headaches Gastroesophageal reflux disease History of GI bleed Hyperlipidemia Hypertension Hypothyroidism Irritable bowel syndrome Ischemic cardiomyopathy Mitral valve prolapse Myasthenia gravis Questionable history of, poorly documented. Obstructive sleep apnea Ocular herpes zoster History of shingles to the left eye, on chronic antiviral therapy. Paroxysmal atrial fibrillation No longer on long-term anticoagulation due to history of falls. Peripheral neuropathy Rectal polyp Restless leg syndrome Shingles Solitary rectal ulcer syndrome Surgical History Surgical History Status post appendectomy Status post bilateral hip replacements Status post bilateral knee replacements Status post breast biopsy Bilateral with benign histology. Status post carpal tunnel release Status post cataract extraction Bilateral. Status post cholecystectomy Status post dilatation of esophageal stricture Status post laminectomy Lumbar spine. Status post LASIK surgery Status post rotator cuff repair Status post tonsillectomy Family History Family History Mother Cerebro
[2021-10-02 14:13] LABS: Basophils Percent Auto 0.5 % (0.2-1.2); Eosinophils Absolute Auto 0.1 K/mm3 (0-0.3); Eosinophils Percent Auto 1.8 % (0-4.4); Hematocrit 34.8 % (37.0-47.0); Hemoglobin 10.6 g/dL (12.0-15.0); Immature Granulocyte Absolute 0.04 K/mm3 (0.00-0.031); Immature Granulocyte Percent A 0.6 % (0-0.5); Lymphocytes Absolute Auto 0.61 K/mm3 (0.9-3.2); Lymphocytes Percent Auto 9.3 % (18.3-44.2); Mean Corpuscular HGB Conc 30.5 g/dl (32-36); Mean Corpuscular Hemoglobin 30.5 pg (26-34); Monocytes Absolute Auto 0.6 K/mm3 (0.1-0.6); Neutrophils Absolute Auto 5.2 K/mm3 (1.3-6.7); Neutrophils Percent Auto 78.8 % (45.5-73.1); Platelet Count Result 301 k/mm3 (150-375); Red Blood Count 3.48 M/mm3 (4.2-5.4); Red Cell Distribution Width 17.5 % (11.5-14.5); White Blood Count 6.6 K/mm3 (4.5-10.0)
[2021-10-02 14:26] LABS: Anion Gap 10 mmol/L (8-16); Blood Urea Nitrogen 36 mg/dL (7-17); Carbon Dioxide 19 mmol/L (22-30); Chloride 110 mmol/L (98-107); Estimated CRCL calculation 25 ml/min; Estimated Glomerular Filt Rate 36; Glucose 80 mg/dL (65-110); Potassium 4.8 mmol/L (3.4-5.0); Sodium 139 mmol/L (137-145)
[2021-10-02] MEDS: HYDROcodone/acetaminophen (*CRX) 5-325 MG TABLET 1 TAB PO (14:29)
[2021-10-02 16:51] VITALS: BP 99/72; PULSE 86; RESP 16; O2SAT 100
--- NOTE | 2021-10-02 16:52 | PC.NURSE ---
Report given to MODESTO Erickson at [facility]
[2021-10-02 17:47] VITALS: BP 108/73; PULSE 77; RESP 18; O2SAT 100
== END 2021-10-02 17:48 ==
PROVIDERS: Emergency Provider Emergency Medicine; PCP Family Medicine
DX: M79.89 Other specified soft tissue disorders (principal); I13.0 Hypertensive heart and chronic kidney disease with heart failure and stage 1 through stage 4 chronic kidney disease, or unspecified chronic kidney disease; N18.32 Chronic kidney disease, stage 3b; I50.9 Heart failure, unspecified; I25.10 Atherosclerotic heart disease of native coronary artery without angina pectoris; D64.9 Anemia, unspecified; E78.5 Hyperlipidemia, unspecified; I48.0 Paroxysmal atrial fibrillation; I25.5 Ischemic cardiomyopathy; E03.9 Hypothyroidism, unspecified; G25.81 Restless legs syndrome; G47.33 Obstructive sleep apnea (adult) (pediatric); K58.9 Irritable bowel syndrome, unspecified; F41.8 Other specified anxiety disorders; K62.6 Ulcer of anus and rectum; K21.9 Gastro-esophageal reflux disease without esophagitis; G62.9 Polyneuropathy, unspecified; Z98.42 Cataract extraction status, left eye; Z98.41 Cataract extraction status, right eye; Z96.643 Presence of artificial hip joint, bilateral; Z96.653 Presence of artificial knee joint, bilateral; Z95.5 Presence of coronary angioplasty implant and graft; Z79.02 Long term (current) use of antithrombotics/antiplatelets; M85.871 Other specified disorders of bone density and structure, right ankle and foot
CPT/HCPCS: 36415; 73630; 80048; 85025; 99283; A9270

== ENCOUNTER 2021-10-03 08:05 | Emergency (ER) | payer MEDICARE, SELFPAY ==
--- NOTE | ~2021-10-03 | XR_ITS ---
EXAMINATION: XR pelvis 1-2V DATE: 10/03/2021 09:21 INDICATION: Low back pain. Fall. TECHNIQUE: An anteroposterior view of the pelvis was obtained on 2 radiographs. COMPARISON: Abdomen radiograph 08/21/2021, CT 08/08/2021 FINDINGS: There are bilateral total hip arthroplasties in near-anatomic alignment. There are cables a round the proximal femora. No periprosthetic lucency to suggest loosening or infection. No fracture. There is lumbar levoscoliosis and severe spondylosis. There is a benign bone island in left ilium. Adam rgical clips overlie right abdomen. IMPRESSION: 1. 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 2. Severe lumbar spondylosis. Reviewed, dictated and finalized at location A. [employer]
--- NOTE | ~2021-10-03 | XR_ITS ---
EXAMINATION: XR foot RT min 3V DATE: 10/03/2021 09:22 INDICATION: Right foot swelling. TECHNIQUE: 4 views of right foot were obtained. COMPARISON: Right foot radiographs 10/02/2021 FINDINGS: There is dorsiflexion of all of the metatarsophalangeal joints. There is a benign bone jadon nd in first distal phalanx. No fracture. There is mild osteoarthritis of some of the interphalangeal joints. There is soft tissue swelling of the foot. IMPRESSION: 1. Mild polyarticular osteoarthritis. Reviewed, dictated and finalized at location A. CLEANER
--- NOTE | ~2021-10-03 | CT_ITS ---
EXAMINATION: CT cervical spine wo con DATE: 10/03/2021 09:30 INDICATION: Head injury. TECHNIQUE: Computed tomography (CT) of the cervical spine was performed without intravenous contrast. Automated exposure control and iterative reconstruction technique were employed. The dose-length pro duct was 239.14 mGy-cm. COMPARISON: CT cervical spine 12/01/2019 FINDINGS: There is a right pleural effusion. There is 2 mm anterolisthesis of C4 on C5, 2 mm retrolis thesis of C5 on C6, 2 mm anterolisthesis of C6 on C7, and 3 mm anterolisthesis of T2 on T3. There is mild chronic anterior wedging of T1 and T2 vertebral bodies. There is severely decreased disc height at C3-C4. There is interbody fusion at C4-C5. There is severely decreased disc height at C5-C6 and mi ldly decreased disc height at C6-C7. The following disc levels are specifically discussed: C2-C3: There is no uncovertebral joint osteoarthritis. There is severe bilateral facet joint osteoart hritis. There is mild bilateral neural foraminal stenosis. There is mild central canal stenosis. C3-C4: There is severe bilateral uncovertebral joint osteoarthritis. There is severe bilateral facet joint osteoarthritis. There is mild bilateral neural foraminal stenosis. There is mild central canal stenosis. C4-C5: There is ankylosis of the uncovertebral joints with mild hypertrophy. There is ankylosis of th e facet joints with moderate hypertrophy. There is no neural foraminal stenosis. There is mild centra l canal stenosis. C5-C6: There is severe bilateral uncovertebral joint osteoarthritis. There is severe right and modera te left facet joint osteoarthritis. There is mild bilateral neural foraminal stenosis. There is mild central canal stenosis. C6-C7: There is mild bilateral uncovertebral joint osteoarthritis. There is severe bilateral facet viviane int osteoarthritis. There is mild bilateral neural foraminal stenosis. There is mild central canal st enosis. C7-T1: There is no uncovertebral joint osteoarthritis. There is severe right and moderate left facet joint osteoarthritis. There is mild bilateral neural foraminal stenosis. There is no central canal st enosis. IMPRESSION: 1. No acute fracture. 2. Severe cervical spondylosis. Reviewed, dictated and finalized at location A. T CAPTAIN
--- NOTE | ~2021-10-03 | CT_ITS ---
EXAMINATION: CT brain wo con DATE: 10/03/2021 09:30 INDICATION: Head injury. TECHNIQUE: Computed tomography (CT) of the head was performed without intravenous contrast. The mA wa s adjusted according to patient size. Iterative reconstruction technique was employed. The dose-lengt h product was 1210.67 mGy-cm. COMPARISON: Head CT 09/10/2021 FINDINGS: There are scattered areas of low attenuation in the cerebral white matter. Motion artifact is noted. There is no intracranial hemorrhage, acute infarction, or abnormal intracranial mass lesion . The ventricles are normal in size. There are likely changes of ocular lens replacement surgeries. T here is mild mucosal thickening in the paranasal sinuses. The mastoid air cells are normal. IMPRESSION: 1. Stable mild nonspecific cerebral white matter disease, which likely represents chronic small vesse l ischemic disease. 2. Sensitivity is mildly decreased by motion artifact. Reviewed, dictated and finalized at location A. INSPECTOR IMPRESSION: 1. Stable mild nonspecific cerebral white matter disease, which likely represen ts chronic small vessel ischemic disease. 2. Sensitivity is mildly decreased by motion artifact.
[2021-10-03 08:07] VITALS: BP 109/77; PULSE 85; RESP 21; TEMP 36.3; O2SAT 100
--- NOTE | 2021-10-03 08:51 | ED.FALL ---
HPI - Fall General Chief Complaint: Fall Stated Complaint: fall Time Seen by Provider: 10/03/21 08:41 Source: patient and EMS Mode of arrival: EMS Limitations: dementia History of Present Illness HPI Narrative: Patient is a an 81-year-old female sent here [facility] after a ground-level fall. Patient complaining of right foot pain, was seen here yesterday for the same complaint. Patient has small abrasion on her right forehead. Patient has dementia and a very poor historian. Unknown if any loss of consciousness. Unknown why she fell. Related Data Home Medications Medication Instructions Recorded Confirmed furosemide 20 mg tablet 20 mg PO QAM 12/15/20 09/23/21 nitroglycerin 0.4 mg sublingual 0.4 mg SUBLINGUAL PRN PRN 12/15/20 09/23/21 tablet Entresto 1 tablet PO BID 02/10/21 09/23/21 oxybutynin chloride 10 mg 10 mg PO DAILY 04/18/21 09/23/21 tablet,extended release 24 hr cholecalciferol (vitamin D3) 5,000 unit PO DAILY 04/29/21 09/23/21 hydralazine 10 mg PO DAILY 06/09/21 09/23/21 metoprolol succinate [Toprol XL] 50 mg PO DAILY 06/09/21 09/23/21 prednisolone acetate [Pred Forte] 1 drp EACH EYE DAILY 06/09/21 09/23/21 clopidogrel [Plavix] 75 mg PO DAILY 08/08/21 09/23/21 pantoprazole 40 mg PO Q12H 08/08/21 09/23/21 valacyclovir 500 mg PO BID 08/08/21 09/23/21 Allergies Allergy/AdvReac Type Severity Reaction Status Date / Time Penicillins Allergy Unknown Rash Verified 10/03/21 09:11 Review of Systems Review of Systems: ROS unobtainable: Yes other (Dementia) [facility] Past Medical History Medical History Anxiety and depression Chronic anemia Chronic kidney disease, stage 3b Creatinine ranges between 1.5 and 2.00 Congestive heart failure Echocardiogram on 07/28/2021 showed normal left ventricular size with mild concentric left ventricular hypertrophy and severe global hypokinesis with no segmental wall abnormalities and a calculated ejection fraction of 38% however visual estimate was in the 25 to 30% range as well as diastolic dysfunction grade 2 with severely enlarged left atrial chamber and a large pericardial effusion, mostly posterior, with right atrial and ventricular collapse consistent with cardiac tamponade physiology. Coronary artery disease With multivessel surgical revascularization with PCI at [place] October 2017. Cardiac catheterization 10/17/2018-mild preserved intra-stent luminal diameter Dementia Depression with anxiety Detached retina Right-sided, x2. Frequent headaches Gastroesophageal reflux disease History of GI bleed Hyperlipidemia Hypertension Hypothyroidism Irritable bowel syndrome Ischemic cardiomyopathy Mitral valve prolapse Myasthenia gravis Questionable history of, poorly documented. Obstructive sleep apnea Ocular herpes zoster History of shingles to the left eye, on chronic antiviral therapy. Paroxysmal atrial fibrillation No longer on long-term anticoagulation due to history of falls. Peripheral neuropathy Rectal polyp Restless leg syndrome Shingles Solitary rectal ulcer syndrome Surgical History Surgical History Status post appendectomy Status post bilateral hip replacements Status post bilateral knee replacements Status post breast biopsy Bilateral with benign histology. Status post carpal tunnel release Status post cataract extraction Bilateral. Status post cholecystectomy Status post dilatation of esophageal stricture Status post laminectomy Lumbar spine. Status post LASIK surgery Status post rotator cuff repair Status post tonsillectomy Family History Family History Mother Cerebrovascular accident Diabetes mellitus Hypertension Sibling Cerebrovascular accident Other Acute myocardial infarction Social History Social History (Reviewed 10/03/21 @ 08:56 by Larry Cedeño
[2021-10-03] MEDS: HYDROcodone/acetaminophen (*CRX) 5-325 MG TABLET 1 TAB PO (08:52)
[2021-10-03 09:05] VITALS: BP 120/87; PULSE 80; RESP 18; O2SAT 98
--- NOTE | 2021-10-03 11:04 | PC.NURSE ---
Attempted to call report back to [facility] without answer at this time.
--- NOTE | 2021-10-03 11:20 | PC.NURSE ---
made contact with [facility] to transfer pt back to [facility]. ETA with [facility] is [phone]
[2021-10-03 11:21] VITALS: BP 114/90; PULSE 86; RESP 18; O2SAT 97
--- NOTE | 2021-10-03 12:21 | PC.NURSE ---
[facility] has arrived and is aware that [facility]
== END 2021-10-03 12:24 ==
PROVIDERS: Emergency Provider Emergency Medicine; PCP Family Medicine
DX: S09.90XA Unspecified injury of head, initial encounter (principal); S90.31XA Contusion of right foot, initial encounter; W18.30XA Fall on same level, unspecified, initial encounter; F03.90 Unspecified dementia, unspecified severity, without behavioral disturbance, psychotic disturbance, mood disturbance, and anxiety; I13.0 Hypertensive heart and chronic kidney disease with heart failure and stage 1 through stage 4 chronic kidney disease, or unspecified chronic kidney disease; I50.9 Heart failure, unspecified; N18.32 Chronic kidney disease, stage 3b; D64.9 Anemia, unspecified; K21.9 Gastro-esophageal reflux disease without esophagitis; E78.5 Hyperlipidemia, unspecified; F41.8 Other specified anxiety disorders; I25.10 Atherosclerotic heart disease of native coronary artery without angina pectoris; E03.9 Hypothyroidism, unspecified; K58.9 Irritable bowel syndrome, unspecified; I25.5 Ischemic cardiomyopathy; I34.1 Nonrheumatic mitral (valve) prolapse; G47.33 Obstructive sleep apnea (adult) (pediatric); I48.0 Paroxysmal atrial fibrillation; G62.9 Polyneuropathy, unspecified; G25.81 Restless legs syndrome; Z79.02 Long term (current) use of antithrombotics/antiplatelets; Z79.51 Long term (current) use of inhaled steroids
CPT/HCPCS: 70450; 72125; 72170; 73630; 99284; A9270

== ENCOUNTER 2021-10-07 07:46 | Emergency (ER) | payer MEDICARE, SELFPAY ==
--- NOTE | ~2021-10-07 | XR_ITS ---
EXAMINATION: XR foot RT min 3V DATE: 10/07/2021 10:03 INDICATION: Right foot injury and swelling. TECHNIQUE: 4 views of right foot were obtained. COMPARISON: Right foot radiographs 10/03/2021 FINDINGS: There is dorsiflexion of all of the metatarsophalangeal joints. No fracture. There is a edmond ign bone island of first distal phalanx. There is a chronic dystrophic calcification at lateral base of first proximal phalanx. There is mild midfoot osteoarthritis. There is soft tissue swelling of the foot. IMPRESSION: 1. Mild polyarticular osteoarthritis. Reviewed, dictated and finalized at location A. LE REINFORCER
--- NOTE | ~2021-10-07 | XR_ITS ---
EXAMINATION: XR pelvis 1-2V DATE: 10/07/2021 08:23 INDICATION: Pelvis injury. TECHNIQUE: An anteroposterior view of the pelvis was obtained. COMPARISON: Pelvis single view 10/03/2021, CT 08/08/21, 12/07/20, 10/28/18 FINDINGS: There are bilateral total hip arthroplasties. There are cables around the proximal femora. No periprosthetic lucency to suggest loosening or infection. No acute fracture. There is a chronic fr acture of left greater trochanter with nonunion, present since at least 10/28/18. There is lumbar levo curvature and severe spondylosis. There is a benign bone island in left ilium. IMPRESSION: 1. No acute fracture. 2. 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 Chronic fracture of left greater tr ochanter with nonunion. Reviewed, dictated and finalized at location A. RIAL ASSEMBLER IMPRESSION: 1. No acute fracture. 2. 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 Chronic fract ure of left greater trochanter with nonunion.
--- NOTE | ~2021-10-07 | CT_ITS ---
EXAMINATION: CT brain wo con DATE: 10/07/2021 08:22 INDICATION: Fall. TECHNIQUE: Computed tomography (CT) of the head was performed without intravenous contrast. The mA wa s adjusted according to patient size. Iterative reconstruction technique was employed. The dose-lengt h product was 605.33 mGy-cm. COMPARISON: Head CT 10/03/2021, 09/10/2021 FINDINGS: There are scattered areas of low attenuation in the cerebral white matter. There is no intr acranial hemorrhage, acute infarction, or abnormal intracranial mass lesion. The ventricles are toro l in size. There are likely changes of ocular lens replacement surgeries. There is mild mucosal thick ening in the paranasal sinuses. The mastoid air cells are normal. IMPRESSION: 1. Stable moderate nonspecific cerebral white matter disease, which likely represents chronic small v essel ischemic disease. Reviewed, dictated and finalized at location A. D CLINICAL ENGINEER IMPRESSION: 1. Stable moderate nonspecific cerebral white matter disease, which likely repr esents chronic small vessel ischemic disease.
--- NOTE | ~2021-10-07 | CT_ITS ---
EXAMINATION: CT cervical spine wo con DATE: 10/07/2021 08:22 INDICATION: Neck injury. TECHNIQUE: Computed tomography (CT) of the cervical spine was performed without intravenous contrast. Automated exposure control and iterative reconstruction technique were employed. The dose-length pro duct was 133.32 mGy-cm. COMPARISON: CT cervical spine 10/03/2021 FINDINGS: There is mild scarring at the lung apices. There is a right-sided pleural effusion. There i s 9 degrees dextrocurvature of cervicothoracic spine. There is 2 mm anterolisthesis of C4 on C5, 2 mm retrolisthesis of C5 on C6, 2 mm anterolisthesis of C6 on C7, and 3 mm anterolisthesis of T2 on T3. There is mild chronic anterior wedging of T1 and T2 vertebral bodies. There is severely decreased dis c height at C3-C4. There is interbody fusion at C4-C5. There is severely decreased disc height at C5- C6 and mildly decreased disc height at C6-C7. The following disc levels are specifically discussed: C2-C3: There is no uncovertebral joint osteoarthritis. There is severe bilateral facet joint osteoart hritis. There is mild bilateral neural foraminal stenosis. There is mild central canal stenosis. C3-C4: There is severe bilateral uncovertebral joint osteoarthritis. There is severe bilateral facet joint osteoarthritis. There is mild bilateral neural foraminal stenosis. There is mild central canal stenosis. C4-C5: There is ankylosis of the uncovertebral joints with mild hypertrophy. There is ankylosis of th e facet joints with moderate hypertrophy. There is no neural foraminal stenosis. There is mild centra l canal stenosis. C5-C6: There is severe bilateral uncovertebral joint osteoarthritis. There is severe right and modera te left facet joint osteoarthritis. There is mild bilateral neural foraminal stenosis. There is mild central canal stenosis. C6-C7: There is mild bilateral uncovertebral joint osteoarthritis. There is severe bilateral facet viviane int osteoarthritis. There is mild bilateral neural foraminal stenosis. There is mild central canal st enosis. C7-T1: There is no uncovertebral joint osteoarthritis. There is severe right and moderate left facet joint osteoarthritis. There is mild bilateral neural foraminal stenosis. There is no central canal st enosis. IMPRESSION: 1. No acute fracture. 2. Severe cervical spondylosis. Reviewed, dictated and finalized at location A. E MAN
--- NOTE | ~2021-10-07 | XR_ITS ---
EXAMINATION: XR chest 1V DATE: 10/07/2021 08:23 INDICATION: Fall. Weakness. TECHNIQUE: A single frontal view of the chest was obtained. COMPARISON: Chest single view 09/27/2021, MRCP 09/13/21 FINDINGS: There is a diffuse interstitial pattern, consistent with mild pulmonary edema. There is mil d atelectasis in right lower lung zone. No pleural effusion or pneumothorax. There is enlargement of the cardiac silhouette. IMPRESSION: 1. Mild pulmonary edema. 2. Mild atelectasis in right lower lung zone. 3. Stable enlargement of the cardiac silhouette, likely a combination of cardiomegaly and pericardial effusion as seen on the prior MRI. Reviewed, dictated and finalized at location A. FIC WORKER IMPRESSION: 1. Mild pulmonary edema. 2. Mild atelectasis in right lower lung zone. 3. Stable enlargement of the cardiac silhouette, likely a combination of cardio megaly and pericardial effusion as seen on the prior MRI.
[2021-10-07 07:55] VITALS: BP 92/69; PULSE 69; RESP 13; TEMP 36.8; O2SAT 100
[2021-10-07 10:30] VITALS: BP 105/69; PULSE 89; RESP 18; O2SAT 99
--- NOTE | 2021-10-07 10:37 | ECG_ITS ---
Measurements Intervals [place] Rate: 64 P: 88 TN: 160 QRS: 68 QRSD: 101 T: 52 QT: 434 QTc: 451 Interpretive Statements SINUS RHYTHM ATRIAL AND VENTRICULAR PREMATURE COMPLEXES ANTERIOR INFARCT, AGE INDETERMINATE BASELINE ARTIFACT- I, II, III, AVR, AVL, AVF, V1-V6 ABNORMAL ECG Electronically Signed On 10-07-2021 14:45:33 HOME OFFICE REPRESENTATIVE by Marlon Joe D.O.
--- NOTE | 2021-10-07 11:35 | ED.GENADULT ---
HPI - General Adult General Chief complaint: Fall Stated complaint: fall Time Seen by Provider: 10/07/21 07:54 Source: RN notes reviewed History of Present Illness HPI narrative: Patient presents emergency department from [facility] via EMS for fall. Per staff the patient had fallen yesterday family been contacted and wished the patient to be evaluated today. Patient has had several falls recently patient currently laying in bed she denies any complaints she denies any headaches, chest pain, shortness of breath abdominal pain nausea vomiting patient does have a history of dementia and is a limited historian she is noted to have bruising to her right foot which she has been evaluated in the emergency department for earlier this week Related Data Home Medications Medication Instructions Recorded Confirmed furosemide 20 mg tablet 20 mg PO QAM 12/15/20 09/23/21 nitroglycerin 0.4 mg sublingual 0.4 mg SUBLINGUAL PRN PRN 12/15/20 09/23/21 tablet Entresto 1 tablet PO BID 02/10/21 09/23/21 oxybutynin chloride 10 mg 10 mg PO DAILY 04/18/21 09/23/21 tablet,extended release 24 hr cholecalciferol (vitamin D3) 5,000 unit PO DAILY 04/29/21 09/23/21 hydralazine 10 mg PO DAILY 06/09/21 09/23/21 metoprolol succinate [Toprol XL] 50 mg PO DAILY 06/09/21 09/23/21 prednisolone acetate [Pred Forte] 1 drp EACH EYE DAILY 06/09/21 09/23/21 clopidogrel [Plavix] 75 mg PO DAILY 08/08/21 09/23/21 pantoprazole 40 mg PO Q12H 08/08/21 09/23/21 valacyclovir 500 mg PO BID 08/08/21 09/23/21 Allergies Allergy/AdvReac Type Severity Reaction Status Date / Time Penicillins Allergy Unknown Rash Verified 10/03/21 09:11 Review of Systems Review of Systems: Gen.: Denies fevers or chills ENT: Denies facial pain Respiratory: Denies shortness of breath CV: Denies chest pain GI: Denies abdominal pain nausea, emesis Musculoskeletal: Denies back pain or muscle pain Neuro: Denies headache Skin: Denies rash Except as documented, all other systems reviewed and negative PMFSH Past Medical History Medical History Anxiety and depression Chronic anemia Chronic kidney disease, stage 3b Creatinine ranges between 1.5 and 2.00 Congestive heart failure Echocardiogram on 07/28/2021 showed normal left ventricular size with mild concentric left ventricular hypertrophy and severe global hypokinesis with no segmental wall abnormalities and a calculated ejection fraction of 38% however visual estimate was in the 25 to 30% range as well as diastolic dysfunction grade 2 with severely enlarged left atrial chamber and a large pericardial effusion, mostly posterior, with right atrial and ventricular collapse consistent with cardiac tamponade physiology. Coronary artery disease With multivessel surgical revascularization with PCI at [place] October 2017. Cardiac catheterization 10/17/2018-mild preserved intra-stent luminal diameter Dementia Depression with anxiety Detached retina Right-sided, x2. Frequent headaches Gastroesophageal reflux disease History of GI bleed Hyperlipidemia Hypertension Hypothyroidism Irritable bowel syndrome Ischemic cardiomyopathy Mitral valve prolapse Myasthenia gravis Questionable history of, poorly documented. Obstructive sleep apnea Ocular herpes zoster History of shingles to the left eye, on chronic antiviral therapy. Paroxysmal atrial fibrillation No longer on long-term anticoagulation due to history of falls. Peripheral neuropathy Rectal polyp Restless leg syndrome Shingles Solitary rectal ulcer syndrome Surgical History Surgical History Status post appendectomy Status post bilateral hip replacements Status post bilateral knee replacements Status post breast biopsy Bilateral with benign histology. Status post carpal tunnel release Status post cataract extraction Bilateral. Status post cholecystectomy Status post dilatation of es
--- NOTE | 2021-10-07 11:40 | PC.NURSE ---
Pt is a difficult stick. Lab called to attempt to draw. Charge nurse and EDP notified.
[2021-10-07 11:44] LABS: Add Urine Microscopic? NO; Appearance Urine Clear (Clear); Bilirubin Urine Negative (Negative); Blood Urine Negative (Negative); Color Urine Yellow (Yellow); Glucose Urine UA Negative (Negative); Ketones Urine Negative (Negative); Leukocyte Esterase Ur Negative LEU/UL (Negative); Nitrate Urine Negative (Negative); Protein Urine Negative (Negative); Specific Grav Ur 1.011 (1.001-1.035); Urobilinogen Urine Negative mg/dL (<2.0)
[2021-10-07 12:05] LABS: Basophils Percent Auto 0.5 % (0.2-1.2); Eosinophils Absolute Auto 0.1 K/mm3 (0-0.3); Eosinophils Percent Auto 1.8 % (0-4.4); Hematocrit 32.7 % (37.0-47.0); Hemoglobin 10.1 g/dL (12.0-15.0); Immature Granulocyte Absolute 0.01 K/mm3 (0.00-0.031); Immature Granulocyte Percent A 0.2 % (0-0.5); Lymphocytes Absolute Auto 0.47 K/mm3 (0.9-3.2); Lymphocytes Percent Auto 8.4 % (18.3-44.2); Mean Corpuscular HGB Conc 30.9 g/dl (32-36); Mean Corpuscular Hemoglobin 30.4 pg (26-34); Mean Corpuscular Volume 98.5 fl (80-100); Mean Platelet Volume 10.9 fl (7.4-10.4); Monocytes Absolute Auto 0.6 K/mm3 (0.1-0.6); Monocytes Percent Auto 11.1 % (2.6-8.5); Neutrophils Absolute Auto 4.4 K/mm3 (1.3-6.7); Platelet Count Result 227 k/mm3 (150-375); Red Blood Count 3.32 M/mm3 (4.2-5.4); Red Cell Distribution Width 18.3 % (11.5-14.5); White Blood Count 5.6 K/mm3 (4.5-10.0)
[2021-10-07 12:13] LABS: Alanine Aminotransferase 22 U/L (4-35); Albumin Level 2.8 g/dL (3.5-5.1); Alkaline Phosphatase 130 U/L (38-126); Anion Gap 7 mmol/L (8-16); Aspartate Amino Transferase 30 U/L (14-36); Bilirubin,Total 0.9 mg/dL (0.2-1.3); Blood Urea Nitrogen 26 mg/dL (7-17); Calcium 8.5 mg/dL (8.4-10.2); Carbon Dioxide 20 mmol/L (22-30); Chloride 111 mmol/L (98-107); Estimated CRCL calculation 22 ml/min; Estimated Glomerular Filt Rate 36; Glucose 78 mg/dL (65-110); Potassium 4.3 mmol/L (3.4-5.0); Sodium 138 mmol/L (137-145)
[2021-10-07 12:18] LABS: INR 1.2; Prothrombin Time 15.2 Seconds (11.1-14.7)
[2021-10-07 12:25] LABS: NT Pro B Type Natriuretic Pept 14200 pg/mL (5-100); Troponin I < 0.012 ng/mL (0.000-0.034)
[2021-10-07 13:55] VITALS: PULSE 89
[2021-10-07] MEDS: METOPROLOL SUCCINATE EXT REL 50 MG TABCR PO (13:55)
[2021-10-07] MEDS: LORazepam (*CRX) 0.5 MG TABLET 0.25 MG PO (13:55)
[2021-10-07] MEDS: FUROSEMIDE 20 MG TABLET PO (13:55)
== END 2021-10-07 13:58 ==
PROVIDERS: Emergency Provider Emergency Medicine; PCP Family Medicine
DX: J81.1 Chronic pulmonary edema (principal); S90.31XA Contusion of right foot, initial encounter; F41.9 Anxiety disorder, unspecified; F32.9 Major depressive disorder, single episode, unspecified; I13.0 Hypertensive heart and chronic kidney disease with heart failure and stage 1 through stage 4 chronic kidney disease, or unspecified chronic kidney disease; N18.32 Chronic kidney disease, stage 3b; I50.9 Heart failure, unspecified; E78.5 Hyperlipidemia, unspecified; E03.9 Hypothyroidism, unspecified; W19.XXXA Unspecified fall, initial encounter
CPT/HCPCS: 36415; 70450; 71045; 72125; 72170; 73630; 80053; 81003; 83880; 84484; 85025; 85610; 85730; 93005; 99284; A9270